=== PATIENT | female | born 1950 | race Caucasian/White ===

== ENCOUNTER 2017-09-18 16:03 | Emergency (ER) | payer MEDICARE ==
[~2017-09-18] VITALS: Ht 162.6 cm; Wt 77.8 kg
[~2017-09-18 16:03] MED LIST: ADVIL200 MG PO; ASPIRIN EC325 MG PO; CALCIUM CARBON600 MG PO; CALCIUM500 MG PO; CEFADROXIL500 MG PO; CLARITIN10 MG PO; CLINDAMYCIN HC300 MG PO; COLACE100 MG PO; CRANBERRY 6,001 EACH PO; CRANBERRY200 MG PO; CYCLOBENZAPRINE10 MG PO; EPIPEN 2-P0.3 MG/0.3 IM; FISH OIL500 MG PO; IRON325 M1 PO; LACRISERT5 MG OP; LACRISERT5 MG OPTH; MAG-TAB SR84 MG PO; MINOCIN50 MG PO; MINOCYCLINE HCL50 M1 PO; MULTI VITAMIN1 EACH PO; NORCO 10-325 T1 EACH PO; NORCO 7.5-3251 EACH PO; OMEPRAZOLE20 MG PO; RABANO YOD50 MG/15 M PO; REFRESH PLUS1 EACH OP; RESTASIS1 DROP OD; RESTASIS1 DROP OU; SALAGEN5 MG PO; ULTRAM50 MG PO; VITAMIN D-32000 UNIT PO; XARELTO10 MG PO; ZOFRAN4 MG SL
[2017-09-18] MEDS ORDERED: CYCLOBENZAPRINE10 MG PO (16:53)
== END 2017-09-18 17:02 | disposition home or self-care (01) ==
LOC: ED 16:03
DX: M62.830 Muscle spasm of back (principal); Z91.018 Allergy to other foods; Z88.0 Allergy status to penicillin; Z88.5 Allergy status to narcotic agent; Z79.899 Other long term (current) drug therapy; X50.9XXA Other and unspecified overexertion or strenuous movements or postures, initial encounter
CPT/HCPCS: 99283

== ENCOUNTER 2018-02-04 09:59 | Emergency (ER) | payer MEDICARE ==
[~2018-02-04] VITALS: Ht 162.6 cm; Wt 77.8 kg
[2018-02-04] MEDS ORDERED: RANITIDINE HCL150 M1 PO (10:39)
[2018-02-04] MEDS ORDERED: B COMPLEX1 EACH PO (10:41)
[2018-02-04] MEDS ORDERED: PROBIOTIC1 EAC1 PO (10:42)
[2018-02-04] MEDS ORDERED: FISH OIL 1,2001 EACH PO (10:43)
[2018-02-04] MEDS ORDERED: OXYCODONE HCL5 MG PO (11:38)
== END 2018-02-04 11:45 | disposition home or self-care (01) ==
LOC: ED 09:59
DX: S29.011A Strain of muscle and tendon of front wall of thorax, initial encounter (principal); Z88.0 Allergy status to penicillin; Z88.5 Allergy status to narcotic agent; Z88.8 Allergy status to other drugs, medicaments and biological substances; Z91.018 Allergy to other foods; Z79.899 Other long term (current) drug therapy; X58.XXXA Exposure to other specified factors, initial encounter
CPT/HCPCS: 71046; 99283

== ENCOUNTER 2018-06-11 18:44 | Emergency (ER) | payer MEDICARE ==
[~2018-06-11] VITALS: Ht 162.6 cm; Wt 74.9 kg
[~2018-06-11 18:44] MED LIST changes: +B COMPLEX1 EACH PO; +FISH OIL 1,2001 EACH PO; -LACRISERT5 MG OP; +LACRISERT5 MG OU; +OXYCODONE HCL5 MG PO; +PROBIOTIC1 EAC1 PO; +RANITIDINE HCL150 M1 PO
[2018-06-11] MEDS ORDERED: PERCOCET 5-3251 EACH PO (21:50)
[2018-06-13] MEDS ORDERED: FLUTICASONE PRO16 GM NAS (10:45)
[2018-06-13] MEDS ORDERED: RANITIDINE HCL150 MG PO (10:46)
[2018-06-13] MEDS ORDERED: NEURONTIN300 MG PO (10:54)
== END 2018-06-11 22:47 | disposition home or self-care (01) ==
LOC: ED 18:44
DX: S70.01XA Contusion of right hip, initial encounter (principal); W19.XXXA Unspecified fall, initial encounter; Y92.481 Parking lot as the place of occurrence of the external cause; Z88.0 Allergy status to penicillin; Z88.5 Allergy status to narcotic agent; Z91.018 Allergy to other foods; Z79.899 Other long term (current) drug therapy
CPT/HCPCS: 73502; 73700; 96374; 96375; 96376; 99284; J2270; J2405

== ENCOUNTER 2019-07-02 10:05 | Observation (INO) | payer MEDICARE ==
[~2019-07-02] VITALS: Ht 162.6 cm; Wt 78.5 kg
--- OUTSIDE RECORDS SUMMARY | ~2019-07-02 | XMS | Encounter Summary ---
Demographics + + + | Address | [address] | | | [place] [address] | + + + | Home Phone | | + + + | Preferred Language | Unknown | + + + | Marital Status | | + + + | Pentecostalism Affiliation | 1076 | + + + | Race | Unknown | + + + | Ethnic Group | Unknown | + + + Author + + + | Author | [facility] | | | and [place] | + + + | Organization | [facility] | | | and [place] | + + + | Address | Unknown | + + + | Phone | Unavailable | + + + Support + + + + + | Name | Relationship | Address | Phone | + + + + + | Devang Fernandez | [place] | [address] | | | | | [place], [place] | | | | | [address] | | + + + + + | Dalton Fernandez | ECON | Unknown | | + + + + + | Juana Fernandez | ECON | Unknown | | + + + + + Care Team Providers + +------+ + | Care Business Office Director Name | Role | Phone | + +------+ + | Dutch Rodriguez DO | PCP | | + +------+ + Encounter Details +--------+ + + + + | Date | Type | Department | Care Team | Description | +--------+ + + + + | 12/25/ | Orders Only | [facility] [place] | Ramin Bess | Closed left | | 2017 | | ORTHOPEDIC SURGERY | MD Swathi Gonzalez [facility] | subtrochanteric | | | | [address] [facility] | [place] | femur fracture, | | | | [place] | [address] | initial encounter | | | | [address] | | ([facility]) (Primary Dx) | | | | [phone] | | | +--------+ + + + + Social History + +-------+ +--------+------+ | Tobacco Use | Types | Packs/Day | Years | Date | | | | | Used | | + +-------+ +--------+------+ | Never Smoker | | | | | + +-------+ +--------+------+ + +---+---+---+ | Smokeless Tobacco: | | | | | Never Used | | | | + +---+---+---+ + + +---------+ + | Alcohol Use | Drinks/Week | oz/Week | Comments | + + +---------+ + | Yes | | | Occasionally - 1 | | | | | drink per month | + + +---------+ + + + + | Sex Assigned at | Date Recorded | | | | + + + | Not on file | | + + + + + + + | Job Start Date | Occupation | Industry | + + + + | Not on file | Not on file | Not on file | + + + + + + + + | Travel History | Travel Start | Travel End | + + + + + + | No recent travel history available. | + + documented as of this encounter Functional Status + + + + | Functional Status | Response | Date of Assessment | + + + + | Are you deaf or do you have serious | No | 11/01/2016 | | difficulty hearing? | | | + + + + | Are you blind or do you have serious | No | 11/01/2016 | | difficulty seeing, even when wearing | | | | glasses? | | | + + + + | Do you have serious difficulty walking or | No | 11/01/2016 | | climbing stairs? (5 years old or older) | | | + + + + | Do you have difficulty dressing or bathing? | No | 11/01/2016 | | (5 years old or older) | | | + + + + | Because of a physical, mental, or emotional | Yes | 11/01/2016 | | condition, do you have difficulty doing | | | | errands alone such as visiting a doctor's | | | | office or shopping? [15 years old or | | | | older)] | | | + + + + + + + + | Cognitive Status | Response | Date of Assessment | + + + + | Because of a physical, mental, or emotional | No | 11/01/2016 | | condition, do you have serious difficulty | | | | concentrating, remembering, or making | | | | decisions? (5 years old or older) | | | + + + + documented as of this encounter Plan of Treatment +--------+---------+ + + + | Date | Type | Specialty | Care Team | Description | +--------+---------+ + + + | 07/22/ | Office | Orthopedic Surgery | Ramin Bess | | | 2018 | Visit | | MD Swathi Gonzalez | | | | | | [place] | | | | | | [address] | | | | | | | | +--------+---------+ + + + documented as of this encounter Results XR Knee Left 1 - 2 Vw (12/26/2016 11:21 AM PDT) + + | Specimen | + + | | + + + + + | Narrative | Performed At | + + + | XR KNEE LEFT 1 - 2 VW 12/26/2016 11:21 AM HISTORY: F/U LEFT | [facility] | | SUBTROCHANTERIC FEMUR FRACTURE. COMPARISON: 10/22/2016 | [facility] | | FINDINGS: Interval progressive, but incomplete bridging bone and | [facility] | | callus formation involving the comminuted distal left femur fracture | - IMAGING | | status post retrograde femoral intramedullary diogo with distal and | | | proximal interlocking screws. Fracture fragments are in anatomic | | | alignment. No definite evidence of joint effusion. Left knee | | | arthroplasty components show no evidence of acute abnormality. | | | IMPRESSION - Intact retrograde left femoral intramedullary diogo with | | | proximal and distal interlocking screws. Interval progressive, | | | but incomplete healing of the distal left femoral comminuted | | | metadiaphyseal fracture, in near anatomic alignment. Dictated and | | | Signed by: Walt De Jesus MD Electronically signed: 12/26/2016 | | | 11:43 AM | | + + + + + | Procedure Note | + + | Vinod Rosen Results In - 12/26/2016 11:46 AM PDT XR KNEE LEFT 1 - 2 VW 12/26/2016 11:21 | | AMHISTORY: F/U LEFT SUBTROCHANTERIC FEMUR FRACTURE.COMPARISON: | | 10/22/2016FINDINGS:Interval progressive, but incomplete bridging bone and callus | | formationinvolving the comminuted distal left femur fracture status post | | retrogradefemoral intramedullary diogo with distal and proximal interlocking | | screws.Fracture fragments are in anatomic alignment. No definite evidence of | | jointeffusion. Left knee arthroplasty components show no evidence of | | acuteabnormality.IMPRESSION -Intact retrograde left femoral intramedullary diogo with | | proximal and distalinterlocking screws.Interval progressive, but incomplete healing of | | the distal left femoralcomminuted metadiaphyseal fracture, in near anatomic | | alignment.Dictated and Signed by: Walt De Jesus MD Electronically signed: 12/26/2016 | | 11:43 AM | |abnormality. | | | |IMPRESSION - | |Intact retrograde left femoral intramedullary diogo with proximal and distal | |interlocking screws. | | | |Interval progressive, but incomplete healing of the distal left femoral | |comminuted metadiaphyseal fracture, in near anatomic alignment. | | | |Dictated and Signed by: Walt De Jesus MD | | Electronically signed: 12/26/2016 11:43 AM | + + + + + + + | Performing | Address | City/State/Zipcode | Phone Number | | Organization | | | | + + + + + | [facility] | [address] | [place] | [phone] | | [facility] | | [address] | | | - IMAGING | | | | + + + + + documented in this encounter Visit Diagnoses + + | Diagnosis | + + | Closed left subtrochanteric femur fracture, initial encounter (HCC) - Primary | + + documented in this encounter"
--- OUTSIDE RECORDS SUMMARY | ~2019-07-02 | XMS | Encounter Summary ---
Demographics + + + | Address | [address] | | | [place] [address] | + + + | Home Phone | | + + + | Preferred Language | Unknown | + + + | Marital Status | | + + + | Baptist Affiliation | 1076 | + + + | Race | Unknown | + + + | Ethnic Group | Unknown | + + + Author + + + | Author | [facility] | | | and [place] | + + + | Organization | [facility] | | | and [place] | + + + | Address | Unknown | + + + | Phone | Unavailable | + + + Support + + + + + | Name | Relationship | Address | Phone | + + + + + | Devang Koroma | [place] | [address] | | | | | [place], [place] | | | | | [address] | | + + + + + | Dalton Koroma | ECON | Unknown | | + + + + + | Juana Koroma | ECON | Unknown | | + + + + + Care Team Providers + +------+ + | Care [address] Vendor Name | Role | Phone | + +------+ + | Dutch Valencia DO | PCP | | + +------+ + Reason for Visit + + + | Reason | Comments | + + + | Post Op | right tka dos 05/26/15 | + + + | Knee Pain | right | + + + Encounter Details +--------+---------+ + + + | Date | Type | Department | Care Team | Description | +--------+---------+ + + + | 06/08/ | Office | [facility] | Ramin Huggins | S/P orthopedic | | 2015 | Visit | ORTHOPEDIC SURGERY | MD Lisa [address] [facility] | surgery, follow-up | | | | [address] [facility] | [place] | exam (Primary Dx) | | | | [place] | [address] | | | | | [address] | | | | | | [phone] | | | +--------+---------+ + + + Social History + +-------+ [...] + + documented as of this encounter Last Filed Vital Signs + + + + + | Vital Sign | Reading | Time Taken | Comments | + + + + + | Blood Pressure | - | - | | + + + + + | Pulse | - | - | | + + + + + | Temperature | 37 C (98.6 F) | 06/08/2015 10:43 AM | | | | | PST | | + + + + + | Respiratory Rate | - | - | | + + + + + | Oxygen Saturation | - | - | | + + + + + | Inhaled Oxygen | - | - | | | Concentration | | | | + + + + + | Weight | 75.8 kg (167 lb) | 06/08/2015 10:43 AM | | | | | PST | | + + + + + | Height | 164.5 cm (5' 4.75") | 06/08/2015 10:43 AM | | | | | PST | | + + + + + | Body Mass Index | 28.01 | 06/08/2015 10:43 AM | | | | | PST | | + + + + + documented in this encounter Functional Status + + + + | Functional Status | Response | Date of Assessment | + + + + | Are you deaf or do you have serious | No | 05/29/2015 | | difficulty hearing? | | | + + + + | Are you blind or do you have serious | No | 05/29/2015 | | difficulty seeing, even when wearing | | | | glasses? | | | + + + + | Do you have serious difficulty walking or | Yes | 05/29/2015 | | climbing stairs? (5 years old or older) | | | + + + + | Do you have difficulty dressing or bathing? | Yes | 05/29/2015 | | (5 years old or older) | | | + + + + | Because of a physical, mental, or emotional | Yes | 05/29/2015 | | condition, do you have difficulty [...] physical, mental, or emotional | No | 05/29/2015 | | condition, do you have serious difficulty | | | | concentrating, remembering, or making | | | | decisions? (5 years old or older) | | | + + + + documented as of this encounter Progress Notes Ramin Huggins MD - 06/08/2015 12:22 PM PSTSee soap note [id number].Electronically sign ed by Ramin Huggins MD at 06/08/2015 12:22 PM [facility] Center[facility] fierro MD - 12:22 PM PST [facility]THOP[facility]IC SURGERY [address] [place] [id number] OFFICE NOTE RAMIN HUGGINS MD Patient: MYRIAM KOROMA Admitting: MR #: [id number] LOC: PT TYPE: Adm Date: 06/08/2015 : 1950 Myriam returns today for followup of her right total knee joint arthroplasty performed on , thirteen days ago. She was seen back for her first postoperative visit on 06/04 and at that time noted to have rather significant swelling in her entire right leg e xtending from the distal thigh down to the foot. She was found to have a negative Homans s ign and therefore was sent to occupational therapy for Kinesio taping. Today, Myriam notes that her swelling has improved significantly and her pain is also minimized. She has been using her CPM faithfully. EXAMINATION: The right lower extremity was examined. There has been significant improvem ent in both ecchymosis as well as overall swelling of the entire right lower extremity. Th e patient's motion is approximately 4-90 degrees. The knee is stable. Neurovascular funct ion is intact to the right foot. ADVICE: Today maco were removed and Steri-Strips and benzoin were applied. We have en couraged Myriam to be faithful with physical therapy, to work on both extension and flexion. She will continue to use the CPM machine. We have given her a single prescription for Du ricef to be used as needed for prophylaxis, as she does need to have a crown recemented th at fell off earlier today in her mouth. We will plan to see Myriam back in approximately 3 weeks for an x-ray check of her right knee at that time. RAMIN HUGGINS MD Dictated by RAMIN HUGGINS MD 06/08/2015 12:22:04 Transcribed on 06/09/2015 03:46:[address] shahid# [id number] Confirmation #: [id number] cc: DUTCH VALENCIA DOElectronjose e signed by Ramin Huggins MD at 06/09/2015 8:39 AM PSTdocumented in this encounter Plan of Treatment +--------+---------+ + + + | Date | Type | Specialty | Care Team | Description | +--------+---------+ + + + | 07/22/ | Office | Orthopedic Surgery | Ramin Huggins | | | 2019 | Visit | | MD Swathi Gonzalez | | | | | | [place] | | | | | | [address] | | | | | | | | +--------+---------+ + + + documented as of this encounter Visit Diagnoses + + | Diagnosis | + + | S/P orthopedic surgery, follow-up exam - Primary Follow-up examination, following | | other surgery | + + documented in this encounter
--- OUTSIDE RECORDS SUMMARY | ~2019-07-02 | XMS | Encounter Summary ---
Demographics + + + | Address | [address] | | | [place] [address] | + + + | Home Phone | | + + + | Preferred Language | Unknown | + + + | Marital Status | | + + + | Denominational Affiliation | 1076 | + + + | Race | Unknown | + + + | Ethnic Group | Unknown | + + + Author + + + | Author | and [facility] | | | and [place]o | + + + | Organization | and [facility] | | | and [...] [place], [place] | | | | | [address] | | + + + + + | Dalton Koroma | ECON | Unknown | | + + + + + | Juana Koroma | ECON | Unknown | | + + + + + Care Team Providers + +------+ + | Care Target Man Name | Role | Phone | + +------+ + | Dutch Valencia DO | PCP | | + +------+ + Reason for Visit +---------+ + | Reason | Comments | +---------+ + | Post Op | ORIF retrograde IM femoral dos 10/23/16 | +---------+ + Encounter Details +--------+---------+ + + + | Date | Type | Department | Care Team | Description | +--------+---------+ + + + | 12/26/ | Office | [facility] [place] | Ramin Huggins | S/P orthopedic | | 2017 | Visit | ORTHOPEDIC SURGERY | MD Swathi Gonzalez | surgery, follow-up | | | | [address] [facility] | [place] | exam (Primary Dx) | | | | [place] | [address] | | | | | [address] | | | | | | [phone] | | | +--------+---------+ + + + [...] + + + + | Temperature | 36.9 C (98.4 F) | 12/26/2016 11:25 AM | | | | | PDT | | + + + + + | Respiratory Rate | - | - | | + + + + + | Oxygen Saturation | - | - | | + + + + + | Inhaled Oxygen | - | - | | | Concentration | | | | + + + + + | Weight | 77.1 kg (170 lb) | 12/26/2016 11:25 AM | | | | | PDT | | + + + + + | Height | 164.5 cm (5' 4.75") | 12/26/2016 11:25 AM | | | | | PDT | | + + + + + | Body Mass Index | 28.51 | 12/26/2016 11:25 AM | | | | | PDT | | + + + + + [...] encounter Progress Notes Ramin Huggins MD - 12/26/2016 6:50 PM PDT [facility] ORTHOPEDIC SURGER Y [address] [facility] [address] OFFICE NOTE RAMIN HUGGINS MD Patient: MYRIAM KOROMA Admitting: MR #: [id number] LOC: PT TYPE: Adm Date: 12/26/2016 : 1950 Myriam returns today for followup of her left supracondylar periprosthetic femur fracture t reated on 10/23/2016 with a retrograde interlocked intramedullary femoral nail. Today, she notes that she is having no pain. She has been attending physical therapy faithfully and making incremental progress. EXAMINATION: The patient's left knee is examined. The incision is nicely healed. There is no evidence of swelling or infection. Today her motion is approximately 0-60 degrees. X-RAYS: X-rays were taken and reviewed, which show advancing bony healing with visible c allus formation present at the fracture site. ADVICE: We will now allow Myriam to proceed with full weightbearing to tolerance. She may remove her brace at night and may also remove it for working with physical therapy. How er, she should continue to wear the brace while walking in the daytime simply as protection . We will plan to see her back for an x-ray check as well as clinical followup of her lef t knee in 3-4 weeks. RAMIN HUGGINS MD Dictated by RAMIN HUGGINS MD 12/26/2016 18:50:02 Transcribed on 12/27/2016 16:34:04 by nimesh job# [id number] Confirmation #: [id number] cc: DUTCH VALENCIA DO Ramin Ureña MD - 12/26/2016 11:30 AM PDTSee soap note [id number].Electronically si gned by Ramin Huggins MD at 12/26/2016 6:50 PM PDTdocumented in this encounter Plan of Treatment +--------+---------+ + + + | Date | Type | Specialty | Care Team | Description | +--------+---------+ + + + | 07/22/ | Office | Orthopedic Surgery | Ramin Huggins | | | 2019 | Visit | | MD Lisa [address] [place] [address] | | | | | | [place] | | | | | | [address] | | | | | | | | +--------+---------+ + + + documented as of this encounter Visit Diagnoses + + | Diagnosis | + + | S/P orthopedic surgery, follow-up exam - Primary Follow-up examination, following | | other surgery | + + documented in this encounter
--- OUTSIDE RECORDS SUMMARY | ~2019-07-02 | XMS | Encounter Summary ---
Demographics + + + | Address | [address] | | | [place] [address] | + + + | Home Phone | | + + + | Preferred Language | Unknown | + + + | Marital Status | | + + + | Hindu Affiliation | 1076 | + + + | Race | Unknown | + + + | Ethnic Group | Unknown | + + + Author + + + | Author | [facility] | | | and [place] | + + + | Organization | [facility] | | | and [place] | + + + | Address | Unknown | + + + | Phone | Unavailable | + + + Support + + + + + | Name | Relationship | Address | Phone | + + + + + | Devang Fernandez | [place] | [address] | | | | | [place] | | | | | [address] | | + + + + + | Dalton Fernandez | ECON | Unknown | | + + + + + | Juana Fernandez | ECON | Unknown | | + + + + + Care Team Providers + +------+ + | Care Natural Resources Faculty Member Name | Role | Phone | + +------+ + | Miguel Bocanegra MD | PCP | | + +------+ + Encounter Details +--------+ + + + + | Date | Type | Department | Care Team | Description | +--------+ + + + + | 12/26/ | Orders Only | [facility] | Douglas Nuñez MD | Back pain (Primary | | 2013 | | NEUROSURGERY [address] | [address] | Dx) | | | | [address] | [place] [address] | | | | | [place] | [phone] | | | | | [address] | | | | | | [phone] | | | +--------+ + + + + Social History + +-------+ +--------+------+ | Tobacco Use | Types | Packs/Day | Years | Date | | | | | Used | | + +-------+ +--------+------+ | Never Assessed | | | | | + +-------+ +--------+------+ + + + | Sex Assigned at [...] Surgery | Ramin Bess | | | 2019 | Visit | | MD Lisa [address] [place] [address] | | | | | | [place] | | | | | | [id number] | | | | | | | | +--------+---------+ + + + documented as of this encounter Results XR Spine Survey AP and Lateral (03/13/2014 9:59 AM PDT) + + | Specimen | + + | | + + + + + | Narrative | Performed At | + + + | [facility] 03/13/2014 9:59 AM CLINICAL HISTORY: | MISCELANIOUS | | back pain COMPARISON: LUMBAR MRI DECEMBER 03, 2013 FROM [facility] | LAB | | HOSPITAL FINDINGS: AP, lateral bending and flexion/extension views | | | of the thoracolumbar spine are provided. Five non rib-bearing, | | | lumbar-type vertebrae are suggested. There is S shaped thoracolumbar | | | curvature. Approximately 7 degrees of dextroscoliosis centered at | | | T9 increases to 20 degrees with left lateral bending and reverses to | | | 9 degrees of levoscoliosis with right lateral bending. Approximately | | | 10 degrees of levoscoliosis centered at L4-5 increases to 26 degrees | | | with right lateral bending and decreases to 7 degrees with left | | | lateral bending. Severe compression deformity of the T12 vertebral | | | body and more mild to moderate compression deformity of the T11 | | | vertebral body persist unchanged. Mild compression deformity of the | | | superior T9 vertebral endplate is again visible as well. Vertebral | | | height is otherwise maintained. Mild to moderate disc space | | | narrowing and facet hypertrophy are present at L3-4 and L4-5. Mild | | | anterolisthesis at these levels is more pronounced with flexion and | | | partially resolves with extension. Mild retrolisthesis at T12-L1 | | | persists with extension but resolves with flexion. The sacroiliac | | | joints and imaged sacrum, bony pelvis and ribs are unremarkable. A | | | partially gas-filled hiatus hernia is ingested. Imaged intrathoracic | | | structures are otherwise grossly unremarkable. There is left | | | cervical carotid calcification and scattered abdominal aortic | | | calcification. IMPRESSION - 1. S SHAPED THORACOLUMBAR | | | SCOLIOSIS DESCRIBED. 2. CHRONIC T9, T11 AND T12 COMPRESSION | | | FRACTURES WITH MULTILEVEL LUMBAR DEGENERATIVE DISC DISEASE, | | | SPONDYLOSIS AND SPONDYLOLISTHESIS DESCRIBED. 3. HIATUS | | | HERNIA. 4. VASCULAR CALCIFICATION. Dictated and Signed by: | | | Toy Pak MD Electronically signed: 03/13/2014 1:52 PM | | + + + + + | Procedure Note | + + | Silas, Rad Results In - 03/13/2014 1:55 PM PDT [facility] SCOLIOSIS SERIES 03/13/2014 | | 9:59 AMCLINICAL HISTORY: back painCOMPARISON: LUMBAR MRI DECEMBER 03, 2013 FROM [facility] | | HOSPITALFINDINGS: AP, lateral bending and flexion/extension views of the | | thoracolumbarspine are provided. Five non rib-bearing, lumbar-type vertebrae are | | suggested. There is S shaped thoracolumbar curvature. Approximately 7 degrees | | ofdextroscoliosis centered at T9 increases to 20 degrees with left lateral bendingand | | reverses to 9 degrees of levoscoliosis with right lateral bending. Approximately 10 | | degrees of levoscoliosis centered at L4-5 increases to 26degrees with right lateral | | bending and decreases to 7 degrees with left lateralbending. Severe compression | | deformity of the T12 vertebral body and more mildto moderate compression deformity of | | the T11 vertebral body persist unchanged. Mild compression deformity of the superior T9 | | vertebral endplate is againvisible as well. Vertebral height is otherwise maintained. | | Mild to moderatedisc space narrowing and facet hypertrophy are present at L3-4 and L4-5. | | Mildanterolisthesis at these levels is more pronounced with flexion and | | partiallyresolves with extension. Mild retrolisthesis at T12-L1 persists with | | extensionbut resolves with flexion. The sacroiliac joints and imaged sacrum, bony | | pelvisand ribs are unremarkable. A partially gas-filled hiatus hernia is ingested. | | Imaged intrathoracic structures are otherwise grossly unremarkable. There isleft | | cervical carotid calcification and scattered abdominal aorticcalcification.IMPRESSION | | -1. S SHAPED THORACOLUMBAR SCOLIOSIS DESCRIBED.2. CHRONIC T9, T11 AND T12 | | COMPRESSION FRACTURES WITH MULTILEVEL LUMBARDEGENERATIVE DISC DISEASE, SPONDYLOSIS AND | | SPONDYLOLISTHESIS DESCRIBED.3. HIATUS HERNIA.4. VASCULAR CALCIFICATION.Dictated and | | Signed by: Toy Pak MD Electronically signed: 03/13/2014 1:52 PM | |left cervical carotid calcification and scattered abdominal aortic | |calcification. | | | |IMPRESSION - | |1. S SHAPED THORACOLUMBAR SCOLIOSIS DESCRIBED. | | | |2. CHRONIC T9, T11 AND T12 COMPRESSION FRACTURES WITH MULTILEVEL LUMBAR | |DEGENERATIVE DISC DISEASE, SPONDYLOSIS AND SPONDYLOLISTHESIS DESCRIBED. | | | |3. HIATUS HERNIA. | | | |4. VASCULAR CALCIFICATION. | | | |Dictated and Signed by: Toy Pak MD | | Electronically signed: 03/13/2014 1:52 PM | + + + +---------+ + + | Performing | Address | City/State/Zipcode | Phone Number | | Organization | | | | + +---------+ + + | M[facility]CELL[facility]OUS LAB | | | [phone] | + +---------+ + + | MISCELANIOUS LAB | | | [phone] | + +---------+ + + documented in this encounter Visit Diagnoses + + | Diagnosis | + + | Back pain - Primary Backache, unspecified | + + documented in this encounter"
--- OUTSIDE RECORDS SUMMARY | ~2019-07-02 | XMS | Encounter Summary ---
Demographics + + + | Address | [address] | | | [place] [address] | + + + | Home Phone | | + + + | Preferred Language | Unknown | + + + | Marital Status | | + + + | Confucianism Affiliation | 1076 | + + + | Race | Unknown | + + + | Ethnic Group | Unknown | + + + Author + + + | Author | [facility] | | | and [place] | + + + | Organization | [facility] | | | and [place] | [...] [place], [place] | | | | | [address] | | + + + + + | Dalton Koroma | ECON | Unknown | | + + + + + | Juana Koroma | ECON | Unknown | | + + + + + Care Team Providers + +------+ + | Care Metal Tube Cutter Name | Role | Phone | + +------+ + | Dutch Valencia DO | PCP | | + +------+ + Reason for Visit +---------+ + | Reason | Comments | +---------+ + | Post Op | ORIF LEFT FEMUR DOS 10/23/16 | +---------+ + Encounter Details +--------+---------+ + + + | Date | Type | Department | Care Team | Description | +--------+---------+ + + + | 11/28/ | Office | [facility] | Ramin Huggins | S/P orthopedic | | 2016 | Visit | ORTHOPEDIC SURGERY | MD Lisa [address] [place] [address] | surgery, follow-up | | | | [address] [facility] | [place] | exam (Primary Dx) | | | | [place] | [address] | | | | | [address] | | | | | | [phone] | | | +--------+---------+ + + + [...] + + + + | Temperature | 36.4 C (97.5 F) | 11/28/2016 4:36 PM | | | | | PDT | [...] Weight | 77.1 kg (170 lb) | 11/28/2016 4:36 PM | | | | | PDT | | + + + + + | Height | 164.5 cm (5' 4.75") | 11/28/2016 4:36 PM | | | | | PDT | | + + + + + | Body Mass Index | 28.51 | 11/28/2016 4:36 PM | | | | | PDT | [...] encounter Progress Notes Ramin Huggins MD - 11/28/2016 6:33 PM PDTSee soap note [id number].Electronically dakota d by Ramin Huggins MD at 11/28/2016 6:33 PM PDTRamin Huggins MD - 11/28/2016 6:33 PM PDT [facility] ORTH[facility]IC SURGERY [address] [place] [id number] OFFICE NOTE RAMIN HUGGINS MD Patient: MYRIAM KOROMA Admitting: MR #: [id number] LOC: PT TYPE: Adm Date: 11/28/2016 : 1950 Myriam returns today for followup of her left supracondylar periprosthetic femur fracture t reated on 10/23/2016 with a retrograde interlocked intramedullary femoral nail. The patien t notes that she is having no pain. Her knee feels comfortable. She has been maintaining a nonweightbearing status on her left foot as advice. She is wearing a knee brace that is allowing her 0-50 degrees of motion. EXAMINATION: The knee is examined. The incision is nicely healed. The patient demonstra cheli motion from 0-50 degrees. Neurovascular function is intact to her left foot. X-RAYS: X-rays were taken and reviewed, which show early bony healing with some visible c allus formation at the fracture site. ADVICE: We will now increase the range of motion to 0-70 degrees and will allow her toe t ouch weightbearing status on the left foot. She will then be allowed to increase her range of motion to 90 degrees in a week and will be maintained on toe touch weightbearing status . We will see her back in 3 weeks for an x-ray check of her left knee and we will plan to advance her weightbearing at that time if appropriate. RAMIN HUGGINS MD Dictated by RAMIN HUGGINS MD 11/28/2016 18:33:22 Transcribed on 11/29/2016 06:17:44 by sean job# [id number] Confirmation #: [id number] cc: DUTCH VALENCIA DO documented in this encounter Plan of Treatment +--------+---------+ + + + | Date | Type | Specialty | Care Team | Description | +--------+---------+ + + + | 07/22/ | Office | Orthopedic Surgery | Ramin Huggins | | | 2019 | Visit | | MD Lisa [address] [place] [address] | | | | | | [place] | | | | | | [phone] | | | | | | | | +--------+---------+ + + + documented as of this encounter Visit Diagnoses + + | Diagnosis | + + | S/P orthopedic surgery, follow-up exam - Primary Follow-up examination, following | | other surgery | + + documented in this encounter
--- OUTSIDE RECORDS SUMMARY | ~2019-07-02 | XMS | Encounter Summary ---
Demographics + + + | Address | [address] | | | [place] [address] | + + + | Home Phone | | + + + | Preferred Language | Unknown | + + + | Marital Status | | + + + | Congregational Affiliation | 1076 | + + + | Race | Unknown | + + + | Ethnic Group | Unknown | + + + Author + + + | Author | [facility] | | | and Primo | + + + | Organization | [facility] | | | and [place] [...] [place], [place] | | | | | [address] | | + + + + + | Dalton Fernandez | ECON | Unknown | | + + + + + | Juana Fernandez | ECON | Unknown | | + + + + + Care Team Providers + +------+ + | Care Industrial Safety Engineer Name | Role | Phone | + +------+ + | Dutch Rodriguez DO | PCP | | + +------+ + Reason for Visit Auth/Cert +--------+--------+ + + + + | Status | Reason | Specialty | Diagnoses / | Referred By | Referred To | | | | | Procedures | Contact | Contact | +--------+--------+ + + + + | Closed | | | Diagnoses | | | | | | | 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 | | | | | | | 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 | | | | | | | Procedures | | | | | | | IA ARTHDSIS | | | | | | | POST/POSTERO | | | | | | | LATRL/POSTIN | | | | | | | TERBODY | | | | | | | LUMBAR | | | | | | | LAMINECTOMY | | | | | | | PLIF/TLIF | | | | | | | INSTRUMENTAT | | | | | | | ION | | | +--------+--------+ + + + + Encounter Details +--------+ + + + + | Date | Type | Department | Care Team | Description | +--------+ + + + + | 06/17/ Anesthesia | [facility] | Pasha Oh, | | | 2013 | Event | [facility] | MD [address] | | | | | [address] | [place], [place] | | | | | [place], [place] | [address] | | | | | [address] | | | | | | [phone] | | | +--------+ + + + + Anesthesia Record + + + + + | Procedure Name | Responsible | Anesthesia Start | Anesthesia Stop Time | | | Anesthesiologist | Time | | + + + + + | L4-5, L5-S1 TLIF, | | 06/17/14 1410 | 11/12/14 1740 | | LEFT SIDED APPROACH | | | | | (Left Spine Lumbar) | | | | + + + + + +----+---+ + + | Da | T | Event | Comment | | te | i | | | | | m | | | | | e | | | +----+---+ + + | 11 | 1 | | | | /1 | 3 | | | | 2/ | 4 | | | | 20 | 7 | | | | 14 | | | | +----+---+ + + | | 1 | An Checkout | Pre-use anesthesia machine/equipment checkout. | | | 3 | | | | | 5 | | | | | 1 | | | +----+---+ + + | | 1 | Antibiotic | | | | 4 | Given | | | | 0 | | | | | 0 | | | +----+---+ + + | | 1 | An Start | Reassessment prior to anesthesia induction/procedure. | | | 4 | | | | | 1 | | | | | 0 | | | +----+---+ + + | | 1 | Preoxygenat | | | | 4 | ed | | | | 1 | | | | | 5 | | | +----+---+ + + | | 1 | An | | | | 4 | Induction | | | | 1 | | | | | 7 | | | +----+---+ + + | | 1 | An | Easy mask. Anticipated difficult intubation secondary to quite | | | 4 | Intubation | limited mouth opening so used a Stone Mac 3 blade without | | | 1 | | difficulty. Produced Modified Grade 1 view of the VCs with BURP | | | 9 | | technique utilized. ETT with stylet placed quite easily. | | | | | Secured. | +----+---+ + + | | 1 | Nathrop | | | | 4 | 43-degrees | | | | 3 | | | | | 6 | | | +----+---+ + + | | 1 | Nathrop off | | | | 7 | | | | | 1 | | | | | 7 | | | +----+---+ + + | | 1 | Breathing | | | | 7 | Spontaneous | | | | 2 | ly | | | | 4 | | | +----+---+ + + | | 1 | Oropharynx | | | | 7 | Suctioned | | | | 2 | | | | | 8 | | | +----+---+ + + | | 1 | Moving | | | | 7 | Purposefull | | | | 2 | y | | | | 8 | | | +----+---+ + + | | 1 | Extubated | | | | 7 | Awake | | | | 2 | | | | | 8 | | | +----+---+ + + | | 1 | an stop | | | | 7 | data | | | | 3 | | | | | 2 | | | +----+---+ + + | | 1 | An Stop | Patient handed off to recovery nurse. | | | 4 | | | | | 0 | | | +----+---+ + + +------+ | Meds | +------+ + + + | Name | Total | + + + | midazolam | 2 mg | + + + | fentaNYL | 250 mcg | + + + | lidocaine 2% (PF) | 50 mg | + + + | propofol | 130 mg | + + + | succinylcholine | 60 mg | + + + | ketamine | 150 mg | + + + | dexamethasone | 10 mg | + + + | ondansetron | 4 mg | + + + | HYDROmorphone | 2 mg | + + + | phenylephrine (GENESIS-SYNEPHRINE) IV | 500 mcg | | syringe 0.1 mg/mL | | + + + | vasopressin | 32 Units | + + + | vancomycin 1 g in sodium chloride | 1 g | | 0.9% 250 mL IVPB | | + + + | ciprofloxacin in dextrose (CIPRO) | 400 mg | | IVPB 400 mg | | + + + | magnesium sulfate | 3.02 g | + + + | lactated ringers (LR) infusion | 2,000 mL | + + + + + | Name | + + | N2O Flow Rate (L/Min) | + + | O2 Flow Rate (L/Min) | + + | Insp O2 | + + | Exp SEV | + + | Exp JAM | + + | Air Flow Rate (L/Min) | + + + + | No blood administrations on file. | + + +--------+ + + + | Type | Details | Placement | Removal | +--------+ + + + | [READ | 06/17/14; 1340; 06/19/14; 1030 | 06/17/14 1340 by | 06/19/14 1030 by | | ONLY] | | Janey Figueredo | Marian Greenfield RN | | | | | | | Periph | | | | | eral | | | | | IV - | | | | | Single | | | | | Lumen | | | | | | | | | +--------+ + + + | Airway | Placement Date: 06/17/14; | 06/17/141418 by | 06/17/14 1728 by | | | Placement Time: 141; Mask | Pasha Oh MD | Pasha Oh MD | | | Ventilation: EZ; With: BURP; | | | | | Successful Technique: video scope | | | | | ([place] 3); Laryngoscope Blade | | | | | Size: 3; Attempts: 1; Airway | | | | | Type: endotracheal, cuffed; | | | | | Position: Right; Airway Tube | | | | | Secured At: 0.23 m (9.06"); Tube | | | | | Reference Point: lip, secure and | | | | | patent; Trauma: none; Placement | | | | | Check: verified by capnography; | | | | | Placed By: Anesthesiologist; | | | | | Removal Date: 06/17/14; Removal | | | | | Time: 1728 | | | +--------+ + + + | Read | 06/17/14; 1542; back; healing | 06/17/14 1542 by | 06/19/14 1306 by | | only - | within expectations; 06/19/14; | Vy Myles RN | Marian Greenfield RN | | | 1306 | | | | Incisi | | | | | on | | | | +--------+ + + + | Drain/ | 06/17/14; 1651; #1; Left:; lower; | 06/17/14 1651 by | 06/19/14 1030 by | | Device | lumbar spine; 10mm ROUND; short | Vy Myles RN | Marian Greenfield RN | | Site | term use; 11/14/14; 1030 | | | +--------+ + + + documented in this encounter Social History + +-------+ +--------+------+ | Tobacco [...] documented as of this encounter Visit Diagnoses Not on filedocumented in this encounter Administered Medications + +--------+ +--------+------+------+ | Medication Order | MAR | Action | Dose | Rate | Site | | | Action | Date | | | | + +--------+ +--------+------+------+ | ciprofloxacin in dextrose | Given | 06/17/20 | 400 mg | | | | (CIPRO) IVPB 400 mg 400 mg, | | 14 2:30 | | | | | Intravenous, Administer over 1 | | PM PST | | | | | Hours, EVERY 12 HOURS (2 times | | | | | | | per day), First dose on Sun | | | | | | | 06/17/14 at 1245, Pre-op | | | | | | + +--------+ +--------+------+------+ +---+---+ | | | +---+---+ + +-------+ +-------+---+---+ | dexamethasone (DECADRON) 10 | Given | 06/17/20 | 10 mg | | | | mg/mL injection Intravenous, | | 14 2:46 | | | | | PRN, Starting Sun06/17/14 at | | PM PST | | | | | 1446, Anesthesia Intra-op | | | | | | + +-------+ +-------+---+---+ +---+---+ | | | +---+---+ + +-------+ +--------+---+---+ | fentaNYL injection PRN, Pain, | Given | 06/17/20 | 50 mcg | | | | Starting 06/17/14 at 1417, | | 14 3:52 | | | | | Anesthesia Intra-op | | PM PST | | | | + +-------+ +--------+---+---+ +-------+ +--------+---+---+ | Given | 06/17/20 | 25 mcg | | | | | 14 3:42 | | | | | | PM PST | | | | +-------+ +--------+---+---+ | Given | 06/17/20 | 25 mcg | | | | | 14 3:05 | | | | | | PM PST | | | | +-------+ +--------+---+---+ +---+---+ | | | +---+---+ + +-------+ +--------+---+---+ | HYDROmorphone (PF) (DILAUDID) 2 | Given | 06/17/20 | 0.4 mg | | | | mg/mL injection PRN, Pain, | | 14 5:36 | | | | | Starting Sun06/17/14 at 1613, | | PM PST | | | | | Anesthesia Intra-op | | | | | | + +-------+ +--------+---+---+ +-------+ +--------+---+---+ | Given | 06/17/20 | 0.4 mg | | | | | 14 4:57 | | | | | | PM PST | | | | +-------+ +--------+---+---+ | Given | 06/17/20 | 0.4 mg | | | | | 14 4:39 | | | | | | PM PST | | | | +-------+ +--------+---+---+ +---+---+ | | | +---+---+ + +-------+ +-------+---+---+ | ketamine 50 mg/mL injection | Given | 06/17/20 | 25 mg | | | | PRN, Starting Sun06/17/14 at | | 14 3:52 | | | | | 1417, Anesthesia Intra-op | | PM PST | | | | + +-------+ +-------+---+---+ +-------+ +-------+---+---+ | Given | 06/17/20 | 25 mg | | | | | 14 3:42 | | | | | | PM PST | | | | +-------+ +-------+---+---+ | Given | 06/17/20 | 25 mg | | | | | 14 3:04 | | | | | | PM PST | | | | +-------+ +-------+---+---+ +---+---+ | | | +---+---+ + +---------+ +----+---+---+ | lactated ringers (LR) infusion | New Bag | 06/17/20 | mL | | | | at 100 mL/hr, Intravenous, | | 14 5:35 | | | | | CONTINUOUS, Starting 06/17/14 | | PM PST | | | | | at 1245, START WITH LARGE BORE | | | | | | | (18-20 GAUGE), Pre-op | | | | | | + +---------+ +----+---+---+ +---------+ +----+-------+---+ | New Bag | 06/17/20 | mL | | | | | 14 3:15 | | | | | | PM PST | | | | +---------+ +----+-------+---+ | New Bag | 06/17/20 | | 100 | | | | 14 1:42 | | mL/hr | | | | PM PST | | | | +---------+ +----+-------+---+ +---+---+ | | | +---+---+ + +-------+ +-------+---+---+ | lidocaine (PF) 2% injection | Given | 06/17/20 | 50 mg | | | | PRN, Starting 06/17/14 at | | 14 2:17 | | | | | 1417, Anesthesia Intra-op | | PM PST | | | | + +-------+ +-------+---+---+ +---+---+ | | | +---+---+ + +---------+ +--------+---------+---+ | magnesium sulfate 500 mg/mL | New Bag | 06/17/20 | 1 g/hr | 2 mL/hr | | | injection Intravenous, | | 14 2:39 | | | | | CONTINUOUS PRN, Starting Wed | | PM PST | | | | | 06/17/14 at 1439, Anesthesia | | | | | | | Intra-op | | | | | | + +---------+ +--------+---------+---+ +---+---+ | | | +---+---+ + +-------+ +------+---+---+ | midazolam (VERSED) 1 mg/mL | Given | 06/17/20 | 2 mg | | | | injection Intravenous, PRN, | | 14 2:10 | | | | | Anxiety, Starting 06/17/14 at | | PM PST | | | | | 1410, Anesthesia Intra-op | | | | | | + +-------+ +------+---+---+ +---+---+ | | | +---+---+ + +-------+ +------+---+---+ | ondansetron (ZOFRAN) injection | Given | 06/17/20 | 4 mg | | | | PRN, Nausea, Vomiting, Starting | | 14 2:46 | | | | | 06/17/14 at 1446, Anesthesia | | PM PST | | | | | Intra-op | | | | | | + +-------+ +------+---+---+ +---+---+ | | | +---+---+ + +-------+ +---------+---+---+ | phenylephrine (GENESIS-SYNEPHRINE) | Given | 06/17/20 | 200 mcg | | | | 0.1 mg/mL IV syringe PRN, | | 14 2:23 | | | | | Starting 06/17/14 at 1417, | | PM PST | | | | | Anesthesia Intra-op | | | | | | + +-------+ +---------+---+---+ +-------+ +---------+---+---+ | Given | 06/17/20 | 200 mcg | | | | | 14 2:20 | | | | | | PM PST | | | | +-------+ +---------+---+---+ | Given | 06/17/20 | 100 mcg | | | | | 14 2:17 | | | | | | PM PST | | | | +-------+ +---------+---+---+ +---+---+ | | | +---+---+ + +-------+ +--------+---+---+ | propofol (DIPRIVAN) injection | Given | 06/17/20 | 130 mg | | | | PRN, Starting Sun06/17/14 at | | 14 2:17 | | | | | 1417, Anesthesia Intra-op | | PM PST | | | | + +-------+ +--------+---+---+ +---+---+ | | | +---+---+ + +-------+ +-------+---+---+ | succinylcholine (ANECTINE) | Given | 06/17/20 | 60 mg | | | | injection Intravenous, PRN, | | 14 2:17 | | | | | Starting Sun06/17/14 at 1417, | | PM PST | | | | | Anesthesia Intra-op | | | | | | + +-------+ +-------+---+---+ +---+---+ | | | +---+---+ + +-------+ +-----+---+---+ | vancomycin 1 g in sodium | Given | 06/17/20 | 1 g | | | | chloride 0.9% 250 mL IVPB 1 g, | | 14 2:00 | | | | | Intravenous, Administer over 60 | | PM PST | | | | | Minutes, Prior to Incision, | | | | | | | Starting 06/17/14 at 1226, | | | | | | | For 1 dose, Administer within 1 | | | | | | | hour of surgical incision. | | | | | | | Activate system and mix before | | | | | | | use., Pre-op | | | | | | + +-------+ +-----+---+---+ +---------+ +-----+-------+---+ | New Bag | 06/17/20 | 1 g | 250 | | | | 14 1:45 | | mL/hr | | | | PM PST | | | | +---------+ +-----+-------+---+ +---+---+ | | | +---+---+ + +-------+ +---------+---+---+ | vasopressin (PITRESSIN) | Given | 06/17/20 | 4 Units | | | | injection Intravenous, PRN, | | 14 4:21 | | | | | Starting 06/17/14 at 1423, | | PM PST | | | | | Anesthesia Intra-op | | | | | | + +-------+ +---------+---+---+ +-------+ +---------+---+---+ | Given | 06/17/20 | 4 Units | | | | | 14 3:21 | | | | | | PM PST | | | | +-------+ +---------+---+---+ | Given | 06/17/20 | 4 Units | | | | | 14 3:13 | | | | | | PM PST | | | | +-------+ +---------+---+---+ +---+---+ | | | +---+---+ documented in this encounter
--- OUTSIDE RECORDS SUMMARY | ~2019-07-02 | XMS | Encounter Summary ---
Demographics + + + | Address | [address] | | | [place] [address] | + + + | Home Phone | | + + + | Preferred Language | Unknown | + + + | Marital Status | | + + + | Gnosticism Affiliation | 1076 | + + + | Race | Unknown | + + + | Ethnic Group | Unknown | + + + Author + + + | Author | [facility] | | | and Primo | + + + | Organization | [facility] | | | and [place] | + + + | Address | Unknown | + + + | Phone | Unavailable | + + + Support + + + + + | Name | Relationship | Address | Phone | + + + + + | Devang Fernandez | [place] | [address] | | | | | [place], [place] | | | | | [address] | | + + + + + | Dalton Fernandez | ECON | Unknown | | + + + + + | Juana Fernandez | ECON | Unknown | | + + + + + Care Team Providers + +------+ + | Care Metal Wire Coating Operator Name | Role | Phone | + +------+ + | Dutch Rodriguez DO | PCP | | + +------+ + Reason for Referral Evaluate & Treat (Routine) +--------+ + + + + + | Status | Reason | Specialty | Diagnoses / | Referred By | Referred To | | | | | Procedures | Contact | Contact | +--------+ + + + + + | Closed | Specialty | Physical | Diagnoses | [facility], | [facility] | | | Services | Therapy | | Nino | [facility] | | | Required | | Spondylolist | [facility] | | | | | hesis of | [address] | | | | | lumbar | [address] | [address] | | | | | region | [address] | [place], [place] | | | | | Lumbar | [place], | [address] | | | | | radiculopath | [place] [address] | Phone: | | | | | y S/P | Phone: | [phone] | | | | | lumbar | [phone] | Fax: | | | | | fusion | Fax: | [phone] | | | | | | [phone] | | +--------+ + + + + + Reason for Visit + + + | Reason | Comments | + + + | Follow-up | post op | + + + Encounter Details +--------+ + + + + | Date | Type | Department | Care Team | Description | +--------+ + + + + | 07/22/ | Follow-Up | [facility] | Nino Hurst | Spondylolisthesis of | | 2013 | | NEUROSURGERY [address] | [place] [address] | lumbar region | | | | [address] | [address] | (Primary Dx); Lumbar | | | | [place], [place] | [place] | radiculopathy; S/P | | | | [address] | [id number] | lumbar fusion | | | | [phone] | | | +--------+ + + + [...] + + + | Blood Pressure | 104/64 | 07/22/2014 1:02 PM | | | | | PST | | + + + + + | Pulse | 116 | 07/22/2014 1:02 PM | | | | | PST | | + + + + + | Temperature | - | - | | + + + + + | Respiratory Rate | 16 | 07/22/2014 1:02 PM | | | | | PST | | + + + + + | Oxygen Saturation | - | - | | + + + + + | Inhaled Oxygen | - | - | | | Concentration | | | | + + + + + | Weight | 75.8 kg (167 lb) | 07/22/2014 1:02 PM | | | | | PST | | + + + + + | Height | 154.9 cm (5' 1") | 07/22/2014 1:02 PM | | | | | PST | | + + + + + | Body Mass Index | 31.55 | 07/22/2014 1:02 PM | | | | | PST | | + + + + + documented in this encounter Patient Instructions Patient Instructions Nino Hurst PA - 07/22/2014 1:34 PM PSTAt this time you can increase your activities allowing lifting up to 15 pounds. In 1-2 weeks you can start the process of weaning your brace. In 2-3 weeks you can start with physical therapy. In 2 dayami hs would like to see you back with x-rays of your lumbar spine. SPINE BRACE WEANING PROTOCOL (5 WEEKS) Below are instructions for weaning your brace. You can move through the weeks slower if yo u feel the need to do so, but the overall goal is to get you out of the brace slowly over th e next several weeks. WEEK 1 If you have been using your brace for activities like sleeping, showering, do not use the b race for these activities any longer but continue using it for everything else. WEEK 2 Stop wearing your brace for sitting and short distance walking. You should use the brace f or anything more involved. WEEK 3 Stop using the brace for medium distance walking. You can bend and twist your back but sti ll proceed slowly with these activities. WEEK 4 Stop using the brace for everything but the most difficult tasks. You should now be able to go on long walks and lift more weight as directed. Add more bending and twisting as tolera dahiana. WEEK 5 Stop using the brace for daily use. I would encourage you to use the brace in the future f or activities that you know might aggravate your back or cause pain. You should still work to strengthen your back and use good technique when poultry picking machine tender things and bending. Electronica lly signed by MIREYA Martinez at 07/22/2014 1:34 PM PST documented in this encounter Progress Notes Nino Hurst PA - 07/22/2014 1:38 PM PSTFormatting of this note might be differen t from the original. MIREYA Estrella [address] [place] [address], [address] [place] [address] FAX: NEUROSURGERY SURGICAL FOLLOW-UP CHIEF COMPLAINT: Chief Complaint Patient presents with Follow-up post op HISTORY OF PRESENT ILLNESS: The patient is a 63 y.o. female that had a lumbar fusion by Dr Katy michelle around 4 weeks ago. She returns and overall is doing well. The patient complains of some occasional leg pain as well as low back pain but overall things are improving. The pat ient has been walking as much as possible. She is still taking pain medications at this poi nt. The patient has had no issues with her surgical site. CURRENT MEDICATIONS: Current Outpatient Prescriptions Medication Sig Dispense Refill Artificial Tear Insert (LACRISERT OP) Apply 1 drop to eye nightly. aspirin 325 mg tablet Take 325 mg by mouth Daily. b complex vitamins tablet Take 1 tablet by mouth Daily. Liquid B Complex Calcium Carbonate (CALCIUM 600 PO) Take by mouth in the morning and in the evening. Carboxymethylcellulose Sodium (REFRESH PLUS OP) Apply to eye as needed. cholecalciferol (VITAMIN D-3) 2000 UNITS TABS Take 1,000 Units by mouth Daily. CRANBERRY FRUIT PO Take 200 mg by mouth in the morning and in the evening. cyclobenzaprine (FLEXERIL) 10 mg tablet Take 1 tablet by mouth every 8 hours as needed for Muscle spasms. 90 tablet 3 CycloSPORINE (RESTASIS OP) Apply 1 drop to eye nightly. EPINEPHrine (EPIPEN) 0.3 mg/0.3 mL injection Inject 0.3 mg into the muscle as needed. fish oil 1,000 mg capsule Take 1,000 mg by mouth 2 times daily. gabapentin (NEURONTIN) 300 mg capsule 1 TAB PO QHS X 5 DAYS, THEN 1 TAB PO BID X 5 DAYS , THEN 1 TAP PO TID 90 capsule 2 HYDROcodone-acetaminophen (NORCO) 5-325 mg per tablet Take 1-2 tablets by mouth every 4 hours as needed for Pain. 120 tablet 0 IRON PO Take by mouth in the morning and in the evening. Loratadine (CLARITIN PO) Take by mouth in the morning and in the evening. minocycline (DYNACIN) 50 MG tablet Take 50 mg by mouth every morning. omeprazole (PRILOSEC) 20 mg capsule Take 20 mg by mouth nightly. Pediatric Multiple Vitamins (FLINTSTONES MULTIVITAMIN PO) Take by mouth every morning. pilocarpine (SALAGEN) 5 mg tablet Take 5 mg by mouth 4 times daily. UNABLE TO FIND Med Name: Black Current Seed Oil for Joint Pain in Knees Take 3am and 2pm ALLERGIES: Allergies Allergen Reactions Onion Shortness Of Breath and Other (See Comments) Swelling mouth, migraines, and 3 days of knotting stomach Codeine Other (See Comments) Cotton Mouth Food Nausea Only Any kind of pepper Penicillins Rash SOCIAL HISTORY: The patient reports that she has never smoked. She has never used smokeless tobacco. She r eports that she drinks alcohol. She reports that she does not use illicit drugs. INTERIM PHYSICAL EXAMINATION: Blood pressure 104/64, pulse 116, resp. rate 16, height 1.549 m (5' 1"), weight 75.751 kg ( 167 lb). Body mass index is 31.57 kg/(m^2). GENERAL: Mike Fernandez is in no acute distress with unlabored respirations. SPINE: The patient s incisions are healing well without drainage, significant erythema, o r discharge EXTREMITIES: No lower extremity edema. NEUROLOGICAL EXAMINATION: MENTAL STATUS: The patient is awake, alert, and oriented. She follows simple and complex commands MOTOR EXAM: Motor strength is improving. SENSORY EXAM: The sensory examination improved from the preoperative exam. RADIOGRAPHIC REVIEW: The patient s postoperative x-rays show stable instrumentation and alignment and were rev iewed with the patient today. There have been no interval changes since the immediate posto perative films. Complete fusion has not yet occurred, but this is normal and would not be e xpected at this time. ASSESSMENT: S/P lumbar fusion for: Encounter Diagnoses Name Primary? Spondylolisthesis of lumbar region Yes Lumbar radiculopathy S/P lumbar fusion Past Medical History Diagnosis Date Gastric reflux Migraine PLAN: Overall, the patient is doing well. I increased the patient s activities slowly now allowing 15 pound lifting and also will b egin the process of brace weaning. I would like the patient to advance slowly with this pro cess and discussed this at length during today's visit. I would also like the patient to co ntinue with postoperative rehabilitation and to advance with therapy as tolerated. I am hoping to see improvement over the coming weeks to months and plan to continue to foll ow this patient. The patient will follow-up with me in around 8 weeks for re-evaluation. ELECTRONICALLY SIGNED BY: MIREYA Estrella, 07/22/2014 13:38 documented in th is encounter Plan of Treatment +--------+---------+ + + + | Date | Type | Specialty | Care Team | Description | +--------+---------+ + + + | 07/22/ | Office | Orthopedic Surgery | Ramin Bess | | | 2019 | Visit | | MD Swathi Gonzalez | | | | | | [place] | | | | | | [id number] | | | | | | | | +--------+---------+ + + + + + +--------+ + + | Name | Type | Priori | Associated Diagnoses | Order Schedule | | | | ty | | | + + +--------+ + + | OUTPATIENT PT | Outpatient | Routin | Spondylolisthesis | Ordered: 07/22/2014 | | EXTERNAL | Referral | e | of lumbar region | | | | | | Lumbar radiculopathy | | | | | | S/P lumbar fusion | | + + +--------+ + + documented as of this encounter Results XR Lumbar Spine 2 or 3 Vw (09/18/2014 11:58 AM PST) + + | Specimen | + + | | + + + + + | Narrative | Performed At | + + + | XR LUMBAR SPINE 2 OR 3 VW 09/18/2014 11:58 AM HISTORY: Postop. | [facility] | | COMPARISON: 07/22/2014, 06/18/2014. FINDINGS: There are [address] | [facility] | | nonrib-bearing vertebral bodies. Again visualized are hardware for | [facility] | | posterior fusion from L3 through L5 with interbody hardware at these | - IMAGING | | levels. The hardware remains intact. There remains mild | | | anterolisthesis of L3 over L4 and L4 over L5. Mild spondylosis is | | | present. There is diffuse osteopenia. A stable moderate to severe | | | compression fracture of T12 is again seen with retropulsion of | | | osseous fragments and mild retrolisthesis of T12 over L1. Mild | | | compression deformity is noted of T11 that is stable. Mild disc | | | narrowing are present at L3-4 and L4-5. There is moderate disc | | | narrowing at L5-S1. Facet sclerosis are present at multiple levels. | | | Visualized ribs and pelvic osseous structures show no acute findings. | | | There is mild atherosclerosis. IMPRESSION - Stable posterior | | | fusion from L3 through L5. Osteopenia with stable compression | | | deformities. Dictated and Signed by: Martin Pastor MD | | | Electronically signed: 09/18/2014 2:36 PM | | + + + + + | Procedure Note | + + | Silas, Rad Results In - 09/18/2014 2:39 PM PST XR LUMBAR SPINE 2 OR 3 VW 09/18/2014 | | 11:58 AMHISTORY: Postop.COMPARISON: 07/22/2014, 06/18/2014.FINDINGS:There are 5 | | nonrib-bearing vertebral bodies. Again visualized are hardware forposterior fusion from | | L3 through L5 with interbody hardware at these levels. Thehardware remains intact. There | | remains mild anterolisthesis of L3 over L4 and L4over L5. Mild spondylosis is present. | | There is diffuse osteopenia. A stablemoderate to severe compression fracture of T12 is | | again seen with retropulsionof osseous fragments and mild retrolisthesis of T12 over L1. | | Mild compressiondeformity is noted of T11 that is stable. Mild disc narrowing are | | present atL3-4 and L4-5. There is moderate disc narrowing at L5-S1. Facet sclerosis | | arepresent at multiple levels. Visualized ribs and pelvic osseous structures showno | | acute findings. There is mild atherosclerosis.IMPRESSION -Stable posterior fusion from | | L3 through L5.Osteopenia with stable compression deformities.Dictated and Signed by: | | Martin Pastor MD Electronically signed: 09/18/2014 2:36 PM | |deformity is noted of T11 that is stable. Mild disc narrowing are present at | |L3-4 and L4-5. There is moderate disc narrowing at L5-S1. Facet sclerosis are | |present at multiple levels. Visualized ribs and pelvic osseous structures show | |no acute findings. There is mild atherosclerosis. | | | |IMPRESSION - | |Stable posterior fusion from L3 through L5. | | | |Osteopenia with stable compression deformities. | | | |Dictated and Signed by: Martin Pastor MD | | Electronically signed: 09/18/2014 2:36 PM | + + + + + + + | Performing | Address | City/State/Zipcode | Phone Number | | Organization | | | | + + + + + | [facility] | [address] | [place] | [phone] | | [facility] | | [address] | | | - IMAGING | | | | + + + + + documented in this encounter Visit Diagnoses + + | Diagnosis | + + | Spondylolisthesis of lumbar region - Primary Acquired spondylolisthesis | + + | Lumbar radiculopathy Thoracic or lumbosacral neuritis or radiculitis, unspecified | + + | S/P lumbar fusion Arthrodesis status | + + documented in this encounter
--- OUTSIDE RECORDS SUMMARY | ~2019-07-02 | XMS | Encounter Summary ---
Demographics + + + | Address | [address] | | | [place] [address] | + + + | Home Phone | | + + + | Preferred Language | Unknown | + + + | Marital Status | | + + + | Yarsanism Affiliation | 1076 | + + + | Race | Unknown | + + + | Ethnic Group | Unknown | + + + Author + + + | Author | [facility] | | | and Primo | + + + | Organization | [facility] | | | and [place] [...] [place], [place] | | | | | [address] | | + + + + + | Dalton Fernandez | ECON | Unknown | | + + + + + | Juana Fernandez | ECON | Unknown | | + + + + + Care Team Providers + +------+ + | Care Special Collections Librarian Name | Role | Phone | + [...] | | | | | | | [facility] | | | | | | [...] +--------+ + + + + | 06/17/ | Hospital | [facility] | Douglas Nuñez MD | Acquired | | 2013 | Encounter | MED CTR XRAY [address] | [address] | spondylolisthesis | | | | [place] | [place] [address] | (Primary Dx) | | | | [place] [address] | [phone] | | | | | [phone] | | | +--------+ + + + [...] + + documented as of this encounter Medications at Time of Discharge + + + +---------+ + + | Medication | Sig | Dispensed | Refills | Start | End Date | | | | | | Date | | + + + +---------+ + + | b complex vitamins | Take 1 tablet by | | 0 | | | | tablet | mouth Daily. Liquid | | | | | | | B Complex | | | | | + + + +---------+ + + | Calcium Carbonate | Take by mouth in | | 0 | | | | (CALCIUM 600 PO) | the morning and in | | | | | | | the evening. | | | | | + + + +---------+ + + | | Place 1 drop into | | 0 | | | | Carboxymethylcellulo | both eyes as needed | | | | | | se Sodium (REFRESH | (for dry eyes). | | | | | | PLUS OP) | | | | | | + + + +---------+ + + | cholecalciferol | Take 1,000 Units by | | 0 | | | | (VITAMIN D-3) 2000 | mouth Daily. | | | | | | UNITS TABS | | | | | | + + + +---------+ + + | CRANBERRY FRUIT PO | Take 200 mg by mouth | | 0 | | | | | in the morning and | | | | | | | in the evening. | | | | | + + + +---------+ + + | Loratadine | Take 10 mg by mouth | | 0 | | | | (CLARITIN PO) | in the morning and | | | | | | | in the evening. | | | | | + + + +---------+ + + | minocycline | Take 50 mg by mouth | | 0 | | | | (DYNACIN) 50 MG | every morning. | | | | | | tablet | | | | | | + + + +---------+ + + | omeprazole | Take 20 mg by mouth | | 0 | | | | (PRILOSEC) 20 mg | nightly as needed | | | | | | capsule | (acid reflux). | | | | | + + + +---------+ + + | Pediatric Multiple | Take 1 tablet by | | 0 | | | | Vitamins | mouth every morning. | | | | | | (FLINTSTONES | | | | | | | MULTIVITAMIN PO) | | | | | | + + + +---------+ + + | pilocarpine | Take 5 mg by mouth 4 | | 0 | | | | (SALAGEN) 5 mg | times daily. | | | | | | tablet | | | | | | + + + +---------+ + + | Artificial Tear | Apply 1 drop to eye | | 0 | | | | Insert (LACRISERT | nightly. | | | | 6 | | OP) | | | | | | + + + +---------+ + + | aspirin 325 mg | Take 325 mg by mouth | | 0 | | | | tablet | Daily. | | | | 5 | + + + +---------+ + + | cyclobenzaprine | Take 1 tablet by | 90 | 3 | 06/19/20 | | | (FLEXERIL) 10 mg | mouth every 8 hours | tablet | | 14 | 6 | | tablet | as needed for Muscle | | | | | | | spasms. | | | | | + + + +---------+ + + | CycloSPORINE | Apply 1 drop to eye | | 0 | | | | (RESTASIS OP) | nightly. | | | | 6 | + + + +---------+ + + | EPINEPHrine | Inject 0.3 mg into | | 0 | | | | (EPIPEN) 0.3 mg/0.3 | the muscle as | | | | 5 | | mL injection | needed. | | | | | + + + +---------+ + + | fish oil 1,000 mg | Take 1,000 mg by | | 0 | | | | capsule | mouth 2 times daily. | | | | 6 | + + + +---------+ + + | | Take 1-2 tablets by | 120 | 0 | 06/19/20 | | | HYDROcodone-acetamin | mouth every 4 hours | tablet | | 14 | 5 | | ophen (NORCO) 5-325 | as needed for Pain. | | | | | | mg per tablet | | | | | | + + + +---------+ + + | ibuprofen (ADVIL, | Take 200 mg by mouth | | 0 | | | | MOTRIN) 200 mg | as needed. | | | | 4 | | tablet | | | | | | + + + +---------+ + + | IRON PO | Take 325 mg by mouth | | 0 | | | | | in the morning and | | | | 7 | | | in the evening. | | | | | + + + +---------+ + + | lactulose 10 g/15 | Take 30 mLs by mouth | 240 mL | 3 | 06/19/20 | | | mL solution | Daily as needed for | | | 14 | 4 | | | up to 10 days. | | | | | + + + +---------+ + + | UNABLE TO FIND | Med Name: Black | | 0 | | | | | Current Seed Oil for | | | | 5 | | | Joint Pain in | | | | | | | KneesTake 3am and | | | | | | | 2pm | | | | | + + + +---------+ + + documented as of this encounter Plan of Treatment +--------+---------+ + + + | Date | Type | Specialty | Care Team | Description | +--------+---------+ + + + | 07/22/ | Office | Orthopedic Surgery | Bess Ramin | | | 2018 | Visit | | MD Swathi Gonzalez | | | | | | [place] | | | | | | [address] | | | | | | | | +--------+---------+ + + + documented as of this encounter Procedures + +--------+ + + + | Procedure Name | Priori | Date/Time | Associated Diagnosis | Comments | | | ty | | | | + +--------+ + + + | MADDIE HERNANDEZ STATS NO | Routin | 06/17/2014 | Acquired | Results for this | | CHARGE | e | 5:07 PM | spondylolisthesis | procedure are in the | | | | PST | | results section. | + +--------+ + + + documented in this encounter Results MADDIE Mac (06/17/2014 5:07 PM PST) + + | Specimen | + + | | + + + + + | Narrative | Performed At | + + + | No Radiologist interpretation, please see Chart Review. | [facility] | + + + + + | Procedure Note | + + | 06/17/2014 5:08 PM PST No Radiologist interpretation, please see Chart Review. | + + + +---------+ + + | Performing | Address | City/State/Zipcode | Phone Number | | Organization | | | | + +---------+ + + | [facility] | | | | + +---------+ + + documented in this encounter Visit Diagnoses + + | Diagnosis | + + | Acquired spondylolisthesis - Primary | + + documented in this encounter"
--- OUTSIDE RECORDS SUMMARY | ~2019-07-02 | XMS | Encounter Summary ---
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 Done | | [facility] | | | Top Tube | | | [facility] | | | | | | [facility] | | | | [facility] - | | | | | | LABORATORY | | + +-------+ + + + + + | Specimen | + + | Blood | + + + + + + + | Performing | Address | City/State/Zipcode | Phone Number | | Organization | | | | + + + + + | [facility] | [address] | [place] | [phone] | | [facility] | | [address] | | | - LABORATORY | | | | + + + + + Urinalysis with Microscopic if Indicated (10/22/2016 9:47 PM PDT) + + + + + + | Component | Value | Ref Range | Performed | Pathologist | | | | | At | Signature | + + + + + + | Color | Yellow | Light Yellow, | [facility] | | | | | Yellow, Straw | [facility] | | | | | | [facility] | | | | | | CENTER - | | | | | | LABORATORY | | + + + + + + | Clarity | Hazy (A) | Clear | [facility] | | | | | | [facility] | | | | | | [facility] | | | | | | [facility] - | | | | | | LABORATORY | | + + + + + + | pH, Urine | 7.0 | 5.0 - 8.0 | [facility] | | | | | | [facility] | | | | | | [facility] | | | | | | C[facility] - | | | | | | LABORATORY | | + + + + + + | Specific | 1.015 | 1.001 - 1.030 | [facility] | | | [place] | | | [facility] | | | | | | [facility] | | | | | | CENTER - | | | | | | LABORATORY | | + + + + + + | Protein, | Negative | Negative | [facility] | | | Urine | | | [facility] | | | | | | [facility] | | | | | | CENTER - | | | | | | LABORATORY | | + + + + + + | Blood, | Negative | Negative | [facility] | | | Urine | | | [facility] | | | | | | [facility] | | | | | | CENTER - | | | | | | LABORATORY | | + + + + + + | Glucose, | Negative | Negative | [facility] | | | Urine | | | [facility] | | | | | | [facility] | | | | | | CENTER - | | | | | | LABORATORY | | + + + + + + | Ketones, | Negative | Negative | [facility] | | | Urine | | | [facility] | | | | | | [facility] | | | | | | CENTER - | | | | | | LABORATORY | | + + + + + + | Bilirubin, | Negative | Negative | [facility] | | | Urine | | | [facility] | | | | | | [facility] | | | | | | CENTER - | | | | | | LABORATORY | | + + + + + + | Nitrite, | Negative | Negative | [facility] | | | Urine | | | [facility] | | | | | | [facility] | | | | | | CENTER - | | | | | | LABORATORY | | + + + + + + | Leukocyte | Negative | Negative | [facility] | | | Esterase, | | | [facility] | | | Urine | | | MEDICAL | | | | | | CENTER - | | | | | | LABORATORY | | + + + + + + | Urobilinoge | Negative | 0.2 mg/dL, 1.0 | [facility] | | | n, Urine | | mg/dL, Negative | [facility] | | | | | | [facility] | | | | | | CENTER - | | | | | | LABORATORY | | + + + + + + | WBC UA | 2-5 (A) | 0 - 2 /HPF | [facility] | | | | | | [facility] | | | | | | [facility] | | | | | | [facility] - | | | | | | LABORATORY | | + + + + + + | RBC UA | 0-2 | 0 - 2 /HPF | [facility] | | | | | | [facility] | | | | | | [facility] | | | | | | [facility] - | | | | | | LABORATORY | | + + + + + + | SQUAMOUS | 0-2 | 0 - 2 /LPF | [facility] | | | EPITHELIAL | | | [facility] | | | UA | | | MEDICAL | | | | | | CENTER - | | | | | | LABORATORY | | + + + + + + | BACTERIA UA | Negative | Negative /HPF | [facility] | | | | | | [facility] | | | | | | [facility] | | | | | | [facility] - | | | | | | LABORATORY | | + + + + + + | MUCUS UA | Present (A) | Negative /LPF | [facility] | | | | | | [facility] | | | | | | [facility] | | | | | | [facility] - | | | | | | LABORATORY | | + + + + + + | AMORPHOUS | Few (A) | None Seen /HPF | [facility] | | | CRYSTALS | | | [facility] | | | | | | [facility] | | | | | | CENTER - | | | | | | LABORATORY | | + + + + + + + + | Specimen | + + | Urine - Urine | | specimen obtained by | | clean catch | | procedure (specimen) | + + + + + + + | Performing | Address | City/State/Zipcode | Phone Number | | Organization | | | | + + + + + | [facility] | [address] | [place] | [phone] | | [facility] | | [address] | | | - LABORATORY | | | | + + + + + CBC with Differential (10/22/2016 9:14 PM PDT) + + + + + + | Component | Value | Ref Range | Performed | Pathologist | | | | | At | Signature | + + + + + + | WBC | 9.2 | 4.0 - 11.0 K/uL | [facility] | | | | | | [facility] | | | | | [facility] | | | | | [facility] - | | | | | | LABORATORY | | + + + + + + | RBC | 3.84 | 3.70 - 5.20 | [facility] | | | | | M/uL | [facility] | | | | | | [facility] | | | | | | C[facility] - | | | | | | LABORATORY | | + + + + + + | Hemoglobin | 11.7 | 11.5 - 16.0 | [facility] | | | | | g/dL | [facility] | | | | | | [facility] | | | | | | C[facility] - | | | | | | LABORATORY | | + + + + + + | Hematocrit | 35.3 | 34.0 - 47.0 % | [facility] | | | | | | [facility] | | | | | [facility] | | | | | | [facility] - | | | | | | LABORATORY | | + + + + + + | MCV | 92.1 | 83.0 - 101.0 fL | [facility] | | | | | | [facility] | | | | | | [facility] | | | | | | [facility] - | | | | | | LABORATORY | | + + + + + + | MCH | 30.4 | 28.0 - 35.0 pg | [facility] | | | | | | [facility] | | | | | | [facility] | | | | | | [facility] - | | | | | | LABORATORY | | + + + + + + | MCHC | 33.1 | 32.0 - 36.0 | [facility] | | | | | g/dL | [facility] | | | | | | [facility] | | | | | | CENTER - | | | | | | LABORATORY | | + + + + + + | RDW-CV | 13.4 | <15.0 % | [facility] | | | | | | [facility] | | | | | | [facility] | | | | | | [facility] - | | | | | | LABORATORY | | + + + + + + | Platelet | 257 | 140 - 440 K/uL | [facility] | | | Count | | | [facility] | | | | | | [facility] | | | | | | [facility] - | | | | | | LABORATORY | | + + + + + + | MPV | 7.6 | fL | [facility] | | | | | | [facility] | | | | | | [facility] | | | | | | [facility] - | | | | | | LABORATORY | | + + + + + + | % | 79.2 | 45.0 - 82.0 % | [facility] | | | Neutrophils | | | [facility] | | | | | | [facility]ICAL | | | | | | CENTER - | | | | | | LABORATORY | | + + + + + + | % | 13.0 (L) | 20.0 - 45.0 % | [facility] | | | Lymphocytes | | | [facility] | | | | | | [facility] | | | | | | CENTER - | | | | | | LABORATORY | | + + + + + + | % Monocytes | 6.6 | 4.0 - 12.0 % | [facility] | | | | | | [facility] | | | | | | [facility] | | | | | | [facility] - | | | | | | LABORATORY | | + + + + + + | % | 0.9 | 0.0 - 5.0 % | [facility] | | | Eosinophils | | | [facility] | | | | | | [facility] | | | | | | CENTER - | | | | | | LABORATORY | | + + + + + + | % Basophils | 0.3 | 0.0 - 1.0 % | [facility] | | | | | | [facility] | | | | | | [facility] | | | | | | CENTER - | | | | | | LABORATORY | | + + + + + + | Absolute | 7.30 | 1.80 - 8.50 | [facility] | | | Neutrophils | | K/uL | [facility] | | | | | | [facility] | | | | | | C[facility] - | | | | | | LABORATORY | | + + + + + + | Absolute | 1.20 | 0.60 - 3.20 | [facility] | | | Lymphocytes | | K/uL | [facility] | | | | | | [facility] | | | | | | [facility] - | | | | | | LABORATORY | | + + + + + + | Absolute | 0.60 | 0.00 - 1.00 | [facility] | | | Monocytes | | K/uL | [facility] | | | | | | [facility] | | | | | | [facility] - | | | | | | LABORATORY | | + + + + + + | Absolute | 0.10 | 0.00 - 0.40 | [facility] | | | Eosinophils | | K/uL | [facility] | | | | | | [facility] | | | | | | CENTER - | | | | | | LABORATORY | | + + + + + + | Absolute | 0.00 | 0.00 - 0.10 | [facility] | | | Basophils | | K/uL | [facility] | | | | | | [facility] | | | | | | [facility] - | | | | | | LABORATORY | | + + + + + + + + | Specimen | + + | Blood | + + + + + + + | Performing | Address | City/State/Zipcode | Phone Number | | Organization | | | | + + + + + | [facility] | [address] | [place] | [phone] | | [facility] | | [address] | | | - LABORATORY | | | | + + + + + Comprehensive Metabolic Panel (10/22/2016 9:13 PM PDT) + + + + + + | Component | Value | Ref Range | Performed | Pathologist | | | | | At | Signature | + + + + + + | Na | 139 | 136 - 149 | [facility] | | | | | mmol/L | [facility] | | | | | | [facility] | | | | | | CENTER - | | | | | | LABORATORY | | + + + + + + | K | 3.8 | 3.5 - 5.1 | [facility] | | | | | mmol/L | [facility] | | | | | | [facility] | | | | | | CENTER - | | | | | | LABORATORY | | + + + + + + | Cl | 102 | 98 - 109 mmol/L | [facility] | | | | | | [facility] | | | | | | [facility] | | | | | | [facility] - | | | | | | LABORATORY | | + + + + + + | CO2 | 26 | 24 - 31 mmol/L | [facility] | | | | | | [facility] | | | | | | [facility] | | | | | | C[facility] - | | | | | | LABORATORY | | + + + + + + | Anion Gap | 11 | 3 - 16 mmol/L | [facility] | | | | | | [facility] | | | | | | [facility] | | | | | | CENTER - | | | | | | LABORATORY | | + + + + + + | Glucose | 127 (H) | 70 - 109 mg/dL | [facility] | | | | | | [facility] | | | | | | [facility] | | | | | | CENTER - | | | | | | LABORATORY | | + + + + + + | BUN | 11 | 7 - 18 mg/dL | [facility] | | | | | | [facility] | | | | | | [facility] | | | | | | C[facility] - | | | | | | LABORATORY | | + + + + + + | Creatinine | 0.67 | 0.60 - 1.30 | [facility] | | | | | mg/dL | [facility] | | [facility] | | | | [facility] | [facility] - | | | | | | LABORATORY | | + + + + + + | eGFR if not | >60Comment: GLOMERULAR | >=60 | [facility] | | | | FILTRATION | mL/min/1.73m2 | [facility] | | | ARGENTINE | RATE,ESTIMATED | | MEDICAL | | | | mL/min/1.89i8Emka than | | CENTER - | | | | 60 Chronic kidney | | LABORATORY | | | | disease,if found over a | | | | | | 3-month period.Less than | | | | | | 15 Kidney failureFor | | | | | | | | | | | | Americans,multiply the | | | | | | calculated GFR by 1.21. | | | | | | | | | | + + + + + + | Calcium | 8.5 | 8.3 - 10.5 | [facility] | | | | | mg/dL | [facility] | | | | | | MEDICAL | | | | | | CENTER - | | | | | | LABORATORY | | + + + + + + | Albumin | 3.1 (L) | 3.2 - 5.0 g/dL | [facility] | | | | | | [facility] | | [facility] | | | [facility] | | | | | | CENTER - | | | | | | LABORATORY | | + + + + + + | Bilirubin | 0.6 | 0.1 - 1.5 mg/dL | [facility] | | | Total | | | [facility] | | | | | | [facility]ICAL | | | | | | CENTER - | | | | | | LABORATORY | | + + + + + + | Total | 6.1 | 6.0 - 7.8 g/dL | [facility] | | | Protein | | | [facility] | | | | | | [facility]ICAL | | | | | | CENTER - | | | | | | LABORATORY | | + + + + + + | AST | 23 | 10 - 42 U/L | [facility] | | | | | | [facility] | | | | | | [facility] | | | | | | CENTER - | | | | | | LABORATORY | | + + + + + + | ALT | 23 | 6 - 45 U/L | [facility] | | | | | | [facility] | | | | | | [facility] | | | | | | CENTER - | | | | | | LABORATORY | | + + + + + + | Alkaline | 54 | 40 - 110 U/L | [facility] | | | Phosphatase | | | [facility] | | | | | | MEDICAL | | | | | | CENTER - | | | | | | LABORATORY | | + + + + + + | Globulin | 3.0 | 2.1 - 3.8 g/dL | [facility] | | | | | | [facility] | | | | | | [facility] | | | | | | CENTER - | | | | | | LABORATORY | | + + + + + + | Albumin/Aparna | 1.0 | 0.8 - 2.0 | [facility] | | | bulin Ratio | | | [facility] | | | | | | [facility]ICAL | | | | | | CENTER - | | | | | | LABORATORY | | + + + + + + | BUN/Creatin | 16.4 | | [facility] | | | ine Ratio | | | [facility] | | | | | | MEDICAL | | | | | | CENTER - | | | | | | LABORATORY | | + + + + + + + + | Specimen | + + | Blood | + + + + + + + | Performing | Address | City/State/Zipcode | Phone Number | | Organization | | | | + + + + + | [facility] | [address] | [place] | [phone] | | [facility] | | [address] | | | - LABORATORY | | | | + + + + + ECG 12 lead (10/22/2016 9:08 PM PDT) + + + + + + | Component | Value | Ref Range | Performed | Pathologist | | | | | At | Signature | + + + + + + | VENTRICULAR | 110 | BPM | [facility] | | | RATE EKG | | | | | + + + + + + | ATRIAL RATE | 110 | BPM | [facility] | | + + + + + + | P-R | 184 | ms | [facility] | | | INTERVAL | | | | | + + + + + + | QRS | 86 | ms | [facility] | | | DURATION | | | | | + + + + + + | Q-T | 386 | ms | [facility] | | | INTERVAL | | | | | + + + + + + | Q-T | 522 | ms | [facility] | | | INTERVAL | | | | | | (CORRECTED) | | | | | + + + + + + | P WAVE AXIS | 64 | degrees | [facility] | | + + + + + + | QRS AXIS | 22 | degrees | [facility] | | + + + + + + | T AXIS | 46 | degrees | [facility] | | + + + + + + | INTERPRETAT | Sinus | | [facility] | | | ION TEXT | tachycardiaProlonged | | | | | | QTAbnormal ECGNo | | | | | | previous ECGs | | | | | | availableConfirmed by | | | | | | JONI CROWE MD ([id number]) | | | | | | on 10/23/2016 7:12:20 AM | | | | + + + + + + + + | Specimen | + + | | + + + + + | Narrative | Performed At | + + + | | | + + + + +---------+ + + | Performing | Address | City/State/Zipcode | Phone Number | | Organization | | | | + +---------+ + + | [facility] | | | | + +---------+ + + XR Ankle Left 2 Vw (10/22/2016 3:40 PM PDT) + + | Specimen | + + | | + + + + + | Narrative | Performed At | + + + | External films for comparison only - no result from [place]. | [facility] | + + + + +---------+ + + | Performing | Address | City/State/Zipcode | Phone Number | | Organization | | | | + +---------+ + + | [facility] | | | | + +---------+ + + XR Knee Left 1 - 2 Vw (10/22/2016 3:30 PM PDT) + + | Specimen | + + | | + + + + + | Narrative | Performed At | + + + | External films for comparison only - no result from [place]. | [facility] | + + + + +---------+ + + | Performing | Address | City/State/Zipcode | Phone Number | | Organization | | | | + +---------+ + + | [facility] | | | | + +---------+ + + documented in this encounter Visit Diagnoses Not on filedocumented in this encounter Administered Medications + +--------+ +--------+------+------+ | Medication Order | MAR | Action | Dose | Rate | Site | | | Action | Date | | | | + +--------+ +--------+------+------+ | acetaminophen (TYLENOL) tablet | Given | 10/26/19 | 975 mg | | | | 975 mg 975 mg (rounded from | | 17 1:11 | | | | | 1,000 mg), Oral, EVERY 8 HOURS (3 | | PM PDT | | | | | times per day), First dose on | | | | | | | 10/22/16 at 2200, For 3 days, | | | | | | | Start 8 hours after pre-op dose., | | | | | | | Post-op/Phase II | | | | | | + +--------+ +--------+------+------+ +-------+ +--------+---+---+ | Given | 10/26/19 | 975 mg | | | | | 17 6:32 | | | | | | AM PDT | | | | +-------+ +--------+---+---+ | Given | 10/25/19 | 975 mg | | | | | 17 9:42 | | | | | | PM PDT | | | | +-------+ +--------+---+---+ +---+---+ | | | +---+---+ + +-------+ +--------+---+---+ | cycloSPORINE (RESTASIS) 0.05% | Given | 10/26/19 | 1 drop | | | | ophthalmic emulsion 1 drop 1 | | 17 8:20 | | | | | drop, Both Eyes, 2 TIMES DAILY, | | AM PDT | | | | | First dose on 10/22/16 at | | | | | | | 2100, Hazardous: Use appropriate | | | | | | | handling precautions., | | | | | | + +-------+ +--------+---+---+ +-------+ +--------+---+---+ | Given | 10/25/19 | 1 drop | | | | | 17 9:43 | | | | | | PM PDT | | | | +-------+ +--------+---+---+ | Given | 10/25/19 | 1 drop | | | | | 17 8:44 | | | | | | AM PDT | | | | +-------+ +--------+---+---+ + +---+ | | | + +---+ | diphenhydrAMINE (BENADRYL) 12.5 | | | mg/5 mL liquid 25 mg 25 mg, | | | Oral, EVERY 4 HOURS PRN, Itching, | | | Starting 10/23/16 at 1808, | | | Oral route is preferred., | | | Post-op/Phase II | | + +---+ | | | + +---+ | diphenhydrAMINE (BENADRYL) | | | injection 12.5 mg 12.5 mg, | | | Intravenous, EVERY 4 HOURS PRN, | | | Itching, Starting 10/23/16 at | | | 1808, Oral route is preferred., | | | Post-op/Phase II | | + +---+ | | | + +---+ | diphenhydrAMINE (BENADRYL) | | | tablet 25 mg 25 mg, Oral, EVERY | | | 4 HOURS PRN, Itching, Starting | | | 10/23/16 at 1808, Oral route | | | is preferred., Post-op/Phase II | | + +---+ | | | + +---+ + +-------+ +-------+---+ + | enoxaparin (LOVENOX) 40 mg/0.4 | Given | 10/26/19 | 40 mg | | Abdomen- | | mL injection 40 mg 40 mg, | | 17 8:19 | | | LLQ | | Subcutaneous, EVERY 24 HOURS | | AM PDT | | | | | (Daily), First dose on Sun | | | | | | | 10/24/16 at 1900, Post-op/Phase II | | | | | | + +-------+ +-------+---+ + +-------+ +-------+---+ + | Given | 10/25/19 | 40 mg | | Abdomen- | | | 17 6:03 | | | RLQ | | | PM PDT | | | | +-------+ +-------+---+ + +---+---+ | | | +---+---+ + +-------+ +-------+---+---+ | famotidine (PEPCID) tablet 20 | Given | 10/26/19 | 20 mg | | | | mg 20 mg, Oral, 2 TIMES DAILY, | | 17 8:20 | | | | | First dose on 10/22/16 at | | AM PDT | | | | | 2130, Post-op/Phase II | | | | | | + +-------+ +-------+---+---+ +-------+ +-------+---+---+ | Given | 10/25/19 | 20 mg | | | | | 17 9:43 | | | | | | PM PDT | | | | +-------+ +-------+---+---+ | Given | 10/25/19 | 20 mg | | | | | 17 8:44 | | | | | | AM PDT | | | | +-------+ +-------+---+---+ +---+---+ | | | +---+---+ + +-------+ +--------+---+---+ | gabapentin (NEURONTIN) capsule | Given | 10/26/19 | 100 mg | | | | 100 mg 100 mg, Oral, 3 TIMES | | 17 1:11 | | | | | DAILY, First dose on 10/22/16 | | PM PDT | | | | | at 2130, For 3 days, Hold for | | | | | | | over-sedation, dizziness or | | | | | | | visual disturbance and contact | | | | | | | MD., Post-op/Phase II | | | | | | + +-------+ +--------+---+---+ +-------+ +--------+---+---+ | Given | 10/26/19 | 100 mg | | | | | 17 8:20 | | | | | | AM PDT | | | | +-------+ +--------+---+---+ | Given | 10/25/19 | 100 mg | | | | | 17 9:42 | | | | | | PM PDT | | | | +-------+ +--------+---+---+ +---+---+ | | | +---+---+ + +-------+ +--------+---+---+ | HYDROmorphone (DILAUDID) | Given | 10/24/19 | 0.4 mg | | | | injection 0.2-0.4 mg 0.2-0.4 mg, | | 17 1:37 | | | | | Intravenous, EVERY 1 HOUR PRN, | | PM PDT | | | | | Pain, Starting 10/22/16 at | | | | | | | 2105, If oral route not an | | | | | | | option. Slow IV push, not faster | | | | | | | than 0.3mg/minute. First dose | | | | | | | must be lowest dose, titrate to | | | | | | | effective dose by repeat of | | | | | | | lowest dose every 30 minutes prn | | | | | | | pain, may not exceed maximum dose | | | | | | | ordered per interval. Use | | | | | | | Pasero Sedation Scale., | | | | | | | Post-op/Phase II | | | | | | + +-------+ +--------+---+---+ +-------+ +--------+---+---+ | Given | 10/24/19 | 0.4 mg | | | | | 17 6:43 | | | | | | AM PDT | | | | +-------+ +--------+---+---+ | Given | 10/24/19 | 0.4 mg | | | | | 17 1:22 | | | | | | AM PDT | | | | +-------+ +--------+---+---+ +---+---+ | | | +---+---+ + +-------+ +------+---+---+ | HYDROmorphone (DILAUDID) tablet | Given | 10/26/19 | 2 mg | | | | 1-2 mg 1-2 mg, Oral, EVERY 3 | | 17 8:20 | | | | | HOURS PRN, Pain, Starting Sun | | AM PDT | | | | | 10/22/16 at 2105, First dose must | | | | | | | be the lowest dose, can titrate | | | | | | | to effective dose by repeat of | | | | | | | lowest dose every 60 minutes prn | | | | | | | pain, may not exceed maximum dose | | | | | | | ordered per interval. Use Pasero | | | | | | | Sedation Scale., Post-op/Phase | | | | | | | II | | | | | | + +-------+ +------+---+---+ +-------+ +------+---+---+ | Given | 10/25/19 | 2 mg | | | | | 17 9:43 | | | | | | PM PDT | | | | +-------+ +------+---+---+ | Given | 10/25/19 | 2 mg | | | | | 17 8:44 | | | | | | AM PDT | | | | +-------+ +------+---+---+ +---+---+ | | | +---+---+ + +---------+ +---+-------+---+ | lactated ringers (LR) infusion | New Bag | 10/24/19 | | 100 | | | at 100 mL/hr, Intravenous, | | 17 11:54 | | mL/hr | | | CONTINUOUS, Starting 10/22/16 | | PM PDT | | | | | at 2130, Post-op/Phase II | | | | | | + +---------+ +---+-------+---+ +---------+ +---+---+---+ | New Bag | 10/24/19 | | | | | | 17 3:26 | | | | | | PM PDT | | | | +---------+ +---+---+---+ | New Bag | 10/24/19 | | | | | | 17 2:32 | | | | | | PM PDT | | | | +---------+ +---+---+---+ +---+---+ | | | +---+---+ + +---------+ +--------+-------+---+ | lactated ringers (LR) infusion | New Bag | 10/24/19 | 1,000 | 100 | | | at 10-100 mL/hr, Intravenous, | | 17 2:30 | mLs | mL/hr | | | CONTINUOUS, Starting 10/23/16 | | PM PDT | | | | | at 1430, TKO. Use this instead of | | | | | | | NS unless dialysis patient., | | | | | | | Pre-op | | | | | | + +---------+ +--------+-------+---+ +---+---+ | | | +---+---+ + +---------+ +---+-------+---+ | lactated ringers (LR) infusion | New Bag | 10/24/19 | | 100 | | | at 100 mL/hr, Intravenous, | | 17 8:00 | | mL/hr | | | CONTINUOUS, Starting 10/23/16 | | PM PDT | | | | | at 1830, Post-op/Phase II | | | | | | + +---------+ +---+-------+---+ +---+---+ | | | +---+---+ + +-------+ +-------+---+---+ | pantoprazole (PROTONIX) DR | Given | 10/26/19 | 40 mg | | | | tablet 40 mg 40 mg, Oral, DAILY | | 17 6:32 | | | | | BEFORE BREAKFAST, First dose on | | AM PDT | | | | | 10/23/16 at 1830, Do not cut | | | | | | | or crush., Post-op/Phase II | | | | | | + +-------+ +-------+---+---+ +-------+ +-------+---+---+ | Given | 10/25/19 | 40 mg | | | | | 17 6:56 | | | | | | AM PDT | | | | +-------+ +-------+---+---+ +---+---+ | | | +---+---+ + +-------+ +------+---+---+ | pilocarpine (SALAGEN) tablet 5 | Given | 10/26/19 | 5 mg | | | | mg 5 mg, Oral, 4 TIMES DAILY, | | 17 1:11 | | | | | First dose on 10/22/16 at 2100 | | PM PDT | | | | + +-------+ +------+---+---+ +-------+ +------+---+---+ | Given | 10/26/19 | 5 mg | | | | | 17 8:20 | | | | | | AM PDT | | | | +-------+ +------+---+---+ | Given | 10/25/19 | 5 mg | | | | | 17 9:43 | | | | | | PM PDT | | | | +-------+ +------+---+---+ +---+---+ | | | +---+---+ + +-------+ +---------+---+---+ | probiotic formula capsule 1 | Given | 10/26/19 | 1 | | | | capsule 1 capsule, Oral, DAILY | | 17 8:20 | capsule | | | | WITH BREAKFAST, First dose on Mon | | AM PDT | | | | | 10/23/16 at 0800, Do not open or | | | | | | | crush., | | | | | | + +-------+ +---------+---+---+ +-------+ +---------+---+---+ | Given | 10/25/19 | 1 | | | | | 17 8:44 | capsule | | | | | AM PDT | | | | +-------+ +---------+---+---+ | Given | 10/24/19 | 1 | | | | | 17 9:33 | capsule | | | | | AM PDT | | | | +-------+ +---------+---+---+ + +---+ | | | + +---+ | sodium chloride 0.9% (NS) | | | infusion at 10-100 mL/hr, | | | Intravenous, CONTINUOUS, Starting | | | 10/23/16 at 1430, TKO. Use | | | this instead of LR if patient is | | | on dialysis., Pre-op | | + +---+ | | | + +---+ + +-------+ +-----+---+ + | vancomycin injection PRN, | Given | 10/24/19 | 1 g | | Surgical | | Starting 10/23/16 at 1516, | | 17 4:15 | | | Site | | Intra-op | | PM PDT | | | | + +-------+ +-----+---+ + +---+---+ | | | +---+---+ documented in this encounter
--- OUTSIDE RECORDS SUMMARY | ~2019-07-02 | XMS | Encounter Summary ---
Demographics + + + | Address | [address] | | | [place] [address] | + + + | Home Phone | | + + + | Preferred Language | Unknown | + + + | Marital Status | | + + + | Anabaptist Affiliation | [id number] | + + + | Race | Unknown | + + + | Ethnic Group | Unknown | + + + Author + + + | Author | [facility] | | | and Primo | + + + | Organization | [facility] | | | and [place] [...] [place], [place] | | | | | [address] | | + + + + + | Dalton Fernandez | ECON | Unknown | | + + + + + | Juana Fernandez | ECON | Unknown | | + + + + + Care Team Providers + +------+ + | Care Support Services Rep Name | Role | Phone | + +------+ + | Dutch Rodriguez DO | PCP | | + +------+ + Reason for Visit +--------+ + | Reason | Comments | +--------+ + | Other | preop | +--------+ + Encounter Details +--------+---------+ + + + | Date | Type | Department | Care Team | Description | +--------+---------+ + + + | 06/10/ | Office | [facility] | Aris Nino | Spondylolisthesis of | | 2013 | Visit | NEUROSURGERY [address] | [address] | lumbar region | | | | [address] | [address] | (Primary Dx); Lumbar | | | | [place], [place] | [place] [address] | radiculopathy; Back | | | | [address] | [phone] | pain | | | | [phone] | | | +--------+---------+ + + + [...] + + + | Blood Pressure | 114/60 | 06/10/2014 8:06 AM | | | | | PST | | + + + + + | Pulse | 84 | 06/10/2014 8:06 AM | | | | | PST | | + + + + + | Temperature | - | - | | + + + + + | Respiratory Rate | 18 | 06/10/2014 8:06 AM | | | | | PST | | + + + + + | Oxygen Saturation | - | - | | + + + + + | Inhaled Oxygen | - | - | | | Concentration | | | | + + + + + | Weight | 75.3 kg (166 lb) | 06/10/2014 8:06 AM | | | | | PST | | + + + + + | Height | 162.6 cm (5' 4") | 06/10/2014 8:06 AM | | | | | PST | | + + + + + | Body Mass Index | 28.49 | 06/10/2014 8:06 AM | | | | | PST | | + + + + + documented in this encounter Patient Instructions Patient Instructions Nino Hurst PA - 06/10/2014 8:34 AM PSTDo not eat or drink anything after midnight the night before your surgery. If you have any medical problems codie albrecht now and the day of your surgery please let us know. documented in this encounter Progress Notes Nino Hurst PA - 06/10/2014 8:36 AM PSTFormatting of this note might be differen t from the original. Nino GOMES-Heather [address] [facility], [address] [place], [place] [id number] FAX: NEUROSURGERY FOLLOW-UP CHIEF COMPLAINT: Chief Complaint Patient presents with Other preop HISTORY OF PRESENT ILLNESS: The patient is a 63 y.o. female with the complaint of low back pain and left leg numbness. The patient had been previously seen in our office. She has c ervical MRI which did not show any significant spinal stenosis. We are now planning to proc eed with surgery on her low back or ongoing problems with low back pain and in her leg pain/ numbness This patient states that she felt pretty good as far as her low back and her legs until in May of this last year she slipped and fell on ice. After that she had low back pain wh ich was really quite intense. Two days after the fall she had had enough back pain that she had to go to the emergency department. She was told at that time she had a fracture of her back and was given medication and asked to followup with her primary care back surgeon in t he future. Unfortunately, the patient is continued to have low back pain which is fairly se richardson and at times is at a level of 9/10. In November of this year, she started noticing numbne ss in the lateral portion of her left thigh extending into the lateral calf and into her gre at toe on the left side. The pain there is getting worse instead of better despite non-oper ative measures. The patient denies any upper extremity problems other than some occasionall y tingling in the fifth fingers bilaterally. No loss of fine motor skills or balance proble ms. She returns to discuss her imaging and options. Her symptoms improve with resting, medications. Her symptoms worsen with standing, long walking this, prolonged position. Her has tried physical therapy, medications. PAST MEDICAL HISTORY: Past Medical History Diagnosis Date Gastric reflux Migraine PAST SURGICAL HISTORY: Past Surgical History Procedure Date Cartilage removed from right ear Rotator cuff right shoulder December 25, 2013 CURRENT MEDICATIONS: Current Outpatient Prescriptions Medication Sig Dispense Refill Artificial Tear Insert (LACRISERT OP) Apply 1 drop to eye nightly. ASPIRIN by Does not apply route as needed. b complex vitamins tablet Take 1 tablet [...] in the morning and in the evening. CycloSPORINE (RESTASIS OP) Apply 1 drop to eye nightly. EPINEPHrine (EPIPEN) 0.3 mg/0.3 mL injection Inject 0.3 mg into the muscle as needed. fish oil 1,000 mg capsule Take 1,000 mg by mouth 2 times daily. ibuprofen (ADVIL, MOTRIN) 200 mg tablet Take 200 mg by mouth as needed. IRON PO Take by mouth in the [...] times daily. UNABLE TO FIND Med Name: Darryl Current Seed Oil for Joint Pain in Knees Take 3am and 2pm ALLERGIES: Allergies Allergen Reactions Codeine Other (See Comments) Cotton Mouth Onion Other (See Comments) Swelling mouth, migraines, and 3 days of knotting stomach Penicillins Rash SOCIAL HISTORY: The patient reports that she has never smoked. She has never used smokeless tobacco. She r eports that she drinks alcohol. She reports that she does not use illicit drugs. FAMILY HISTORY: Family History Problem Relation Age of Onset Heart defect Father Lung cancer Mother PHYSICAL EXAMINATION: Blood pressure 114/60, pulse 84, resp. rate 18, height 1.626 m (5' 4"), weight 75.297 kg (1 66 lb), not currently . Body mass index is 28.48 kg/(m^2). GENERAL: Mike Fernandez is in no acute distress with unlabored respirations. The gregg ent does appear uncomfortable throughout the exam today. HEENT: HEAD/FACE: EYES: EARS: NASOPHARNYX: OROPHARNYX: Normocephalic and atraumatic. There are no areas of recent trauma. Normal sclerae without icterus. CHEST: Clear to ausculation. HEART: Regular rate and rhythm. ABDOMEN: Non-distended. The patient is obese. SPINE: There is no tenderness in the midline of the cervical or thoracic spine. There is n o major palpable deformity of the spine. The lumbar spine shows there is tenderness in the midline of the L2, L3, L4, L5, S1 levels. To palpation, there is signficant right myofascial tenderness. EXTREMITIES: No edema. NEUROLOGICAL EXAM: MENTAL STATUS: The patient is awake, alert, and oriented. She follows simple and complex commands. She speech is fluent, she comprehends speech well, and she repeats well. She has no apparent deficits with short or buttermaker helper memory. MOTOR EXAM: (5 IS NORMAL) * Indicates pain limited MUSCLE/ MOVEMENT: RIGHT LEFT Deltoids 5 5 Biceps 5 5 Triceps 5 5 Wrist Flexion 5 5 Wrist Extension 5 5 Median Intrinsics 5 5 Ulnar Intrinsics 5 5 Office Rental Clerk Strength 5 5 Hip Flexion 5 5 Hip Extension 5 5 Knee Flexion 5 5 Knee Extension 5 5 Dorsiflexion 5 5 Extensor Hallicus Longus 5 5 Plantarflexion 5 5 SENSORY EXAM: Sensory exam shows no diminished sensation to light touch or pain throughout the upper and lower extremities. REFLEXES: (2 OR 2+ IS NORMAL) REFLEX: RIGHT LEFT BICEPS 3+ 3+ BRACHIORADIALIS 3+ 3+ TRICEPS 3 3+ PATELLAR 3+ 3 ACHILLES 2 2 AL'S positive positive PLANTAR DOWNGOING DOWNGOING GAIT: Gait is steady. RADIOGRAPHIC REVIEW: The patient's imaging was reviewed in detail with the patient today during the visit. The images show lumbar spondylolisthesis at L3-4 and L4-5 with stenosis of the canal and foramen at those segments. DDD changes and facet arthropathy are also present. There are two heale d compression fractures of the thoracic spine without cord compression. ASSESSMENT: NEUROSURGICAL DIAGNOSES: Encounter Diagnoses Name Primary? Spondylolisthesis of lumbar region Yes Lumbar radiculopathy Back pain GENERAL DIAGNOSES: Past Medical History Diagnosis Date Gastric reflux Migraine PLAN: It was a pleasure meeting and evaluating this patient today, and I greatly appreciate the alexandria sánchez. The patient has lumbar spondylolisthesis as her likely cause of leg symptoms. I d iscussed a L3-5 TLIF as an option given her failed conservative care. We discussed the risks, alternatives, and benefits to surgical intervention as previously d iscussed with Dr. michelle. Today we discussed surgical techniques involved with her surgery as well as the postoperative recovery period. All of her questions as well as her 's qu estions were answered today detail I recommended for this patient that she be fitted with a brace before surgery to improve he r stability now to support her weak muscles and to reduce pain by restricting mobility. For multiple (more than 1 level fusions), I recommend the use of a bone growth stimulator p ostoperatively. This is to improve the probability and rate of fusion. ELECTRONICALLY SIGNED BY: Nino Hurst PA-C 06/10/2014 8:37 documented in th is encounter Plan of Treatment +--------+---------+ + + + | Date | Type | Specialty | Care Team | Description | +--------+---------+ + + + | 07/22/ | Office | Orthopedic Surgery | Ramin Bess | | | 2019 | Visit | | MD Lisa [facility] | | | | | | [place] | | | | | | [id number] | | | | | | | | +--------+---------+ + + + documented as of this encounter Visit Diagnoses + + | Diagnosis | + + | Spondylolisthesis of lumbar region - Primary Acquired spondylolisthesis | + + | Lumbar radiculopathy Thoracic or lumbosacral neuritis or radiculitis, unspecified | + + | Back pain Backache, unspecified | + + documented in this encounter
--- OUTSIDE RECORDS SUMMARY | ~2019-07-02 | XMS | Encounter Summary ---
Demographics + + + | Address | [address] | | | [place] [address] | + + + | Home Phone | | + + + | Preferred Language | Unknown | + + + | Marital Status | | + + + | Scientologist Affiliation | 1076 | + + + | Race | Unknown | + + + | Ethnic Group | Unknown | + + + Author + + + | Author | [facility] | | | and Primo | + + + | Organization | [facility] | | | and [place] [...] [place], [place] | | | | | [address] | | + + + + + | Dalton Koroma | ECON | Unknown | | + + + + + | Juana Koroma | ECON | Unknown | | + + + + + Care Team Providers + +------+ + | Care Community Resource Officer Name | Role | Phone | + +------+ + | Dutch Valencia DO | PCP | | + +------+ + Reason for Visit +---------+ + | Reason | Comments | +---------+ + | Post Op | right total knee arthroplasty dos 05/26/15 | +---------+ + Encounter Details +--------+---------+ + + + | Date | Type | Department | Care Team | Description | +--------+---------+ + + + | 07/27/ | Office | [facility] | Ramin Huggins | S/P orthopedic | | 2015 | Visit | ORTHOPEDIC SURGERY | MD Swathi Gonzalez | surgery, follow-up | | | | [address] | [place] | exam (Primary Dx) | | | | [place] | [address] | | | | | [address] | | | | | | [phone] | | | +--------+---------+ + + + [...] + + + + | Temperature | 37.1 C (98.8 F) | 07/27/2015 11:24 AM | | | | | PST [...] + + + + | Height | - | - | | + [...] encounter Progress Notes Ramin Huggins MD - 07/27/2015 12:51 PM PSTSee soap note [id number].Electronically sign ed by Ramin Huggins MD at 07/27/2015 12:51 PM PSTHendersRamin howell MD - 5 12:51 PM PST [facility]IC SURGERY [address] [place] [id number] OFFICE NOTE RAMIN HUGGINS MD Patient: MYRIAM KOROMA Admitting: MR #: [id number] LOC: PT TYPE: Adm Date: 07/27/2015 : 1950 Myriam returns today for followup of her right total knee joint arthroplasty performed on , approximately 2 months ago. Today, she notes that her knee is doing well. It fe els comfortable. She has resumed most of her normal physical activities. EXAMINATION: The patient's right knee is examined. Incision is clean, dry and nicely hea led. Her motion is 1-121 degrees. The knee joint is stable. Neurovascular function is in tact to right foot. ADVICE: Myriam is doing well. She will continue to complete her physical therapy, which w ill be completed by the end of this month. She may proceed with activities to tolerance. We will plan to see her back in 6-8 weeks for clinical followup and discussion regarding a left total knee joint replacement if desired. RAMIN HUGGINS MD Dictated by RAMIN HUGGINS MD 07/27/2015 12:51:19 Transcribed on 07/28/2015 05:25:[address] shahid# [id number] Confirmation #: [id number] cc: DUTCH VALENCIA DO documented in this encounter Plan of Treatment +--------+---------+ + + + | Date | Type | Specialty | Care Team | Description | +--------+---------+ + + + | 07/22/ | Office | Orthopedic Surgery | Ramin Huggins | | | 2018 | Visit | | MD Swathi Gonzalez | | | | | | [place] | | | | | | [id number] | | | | | | | | +--------+---------+ + + + documented as of this encounter Visit Diagnoses + + | Diagnosis | + + | S/P orthopedic surgery, follow-up exam - Primary Follow-up examination, following | | other surgery | + + documented in this encounter"
--- OUTSIDE RECORDS SUMMARY | ~2019-07-02 | XMS | Encounter Summary ---
Demographics + + + | Address | [address] | | | [place] [address] | + + + | Home Phone | | + + + | Preferred Language | Unknown | + + + | Marital Status | | + + + | Christian Affiliation | 1076 | + + + | Race | Unknown | + + + | Ethnic Group | Unknown | + + + Author + + + | Author | [facility] | | | and Primo | + + + | Organization | [facility] | | [...] [place], [place] | | | | | [address] | | + + + + + | Dalton Fernandez | ECON | Unknown | | + + + + + | Juana Fernandez | ECON | Unknown | | + + + + + Care Team Providers + +------+ + | Care Loft Rigger Name | Role | Phone | + +------+ + | Dutch Rodriguez DO | PCP | | + +------+ + Encounter Details +--------+ + + + + | Date | Type | Department | Care Team | Description | +--------+ + + + + | 04/27/ | Orders Only | [facility] [place] | Ramin Bess | Pelvic cyst (Primary | | 2014 | | ORTHOPEDIC SURGERY | MD Lisa [address] | Dx) | | | | [address] [facility] | [place] | | | | | [place] | [address] | | | | | [address] | | | | | | [phone] | | | +--------+ + + + [...] documented as of this encounter Progress Notes Dinah Baker CMA - 04/27/2015 5:[address] Bess, patient needs to get a pelv ic ultrasound, radiologist found a large collection of fluid in the pelvic area. This was ob served in the MRI done for prosthesis purposes. The order was placed and patient was notifie d & expressed understanding. She was then transferred to our radiologist department for sche duling. documented in this encounter Plan of Treatment +--------+---------+ + + + | Date | Type | Specialty | Care Team | Description | +--------+---------+ + + + | 07/22/ | Office | Orthopedic Surgery | Ramin Bess | | | 2018 | Visit | | MD Lisa [address] [place] [address] | | | | | | [place] | | | | | | [id number] | | | | | | | | +--------+---------+ + + + documented as of this encounter Results US Pelvis W Transvaginal (04/30/2015 3:55 PM PDT) + + | Specimen | + + | | + + + + + | Narrative | Performed At | + + + | TRANSABDOMINAL AND TRANSVAGINAL PELVIC ULTRASOUND 04/30/2015 3:01 PM | [facility] | | CLINICAL HISTORY: large collection of fluid in the pelvis on | [facility] | | recent knee prosthesis planning MRI COMPARISON: Knee prosthesis | [facility] | | planning MR images April 27 TRANSABDOMINAL FINDINGS: The | - IMAGING | | uterus measures approximately 5.3 x 2.0 x 3.8 m and is grossly | | | unremarkable. A large, anechoic appearing fluid collection is noted | | | along the left posterior aspect of the uterus, and accounts for the | | | the finding on comparison MRI. A right ovary containing tiny cysts | | | is suggested. No free pelvic fluid is evident. TRANSVAGINAL | | | FINDINGS: Transvaginal scanning is performed to better characterize | | | the uterus and adnexa. No myometrial abnormality is evident. The | | | endometrium measures 3 mm in width. No endometrial fluid collection | | | is apparent. The right ovary measures 2.6 x 1.9 x 2.5 cm and the | | | left ovary measures 7.2 x 6.0 x 6.4 cm. Several tiny, fairly | | | anechoic appearing cysts are noted within the right ovary and measure | | | up to 8 mm in maximal dimension. There is no suspicious | | | vascularity on Doppler interrogation. A large anechoic cyst | | | measuring up to 7.2 x 0.0 x 6.4 cm is noted in the left adnexal | | | region, and demonstrates a solitary thin peripheral septation without | | | internal vascularity on Doppler interrogation. Normal stromal | | | waveforms are present in the right ovary on duplex interrogation. | | | Interrogation of the margin of the left adnexal cyst demonstrates | | | waveforms typical for ovarian tissue as well. No separate left | | | ovary is evident. No free pelvic fluid is evident. IMPRESSION - | | | 1. 7.2 CM ANECHOIC, MINIMALLY SEPTATED CYST IN THE LEFT ADNEXA, | | | LIKELY OVARIAN IN ORIGIN AND ACCOUNTING FOR THE FINDING ON RECENT | | | MRI. PER SRU GUIDELINES, FOLLOW-UP PELVIC MRI AND/OR GYNECOLOGIC | | | CONSULTATION SHOULD BE CONSIDERED. AT MINIMUM, RECOMMEND FOLLOW-UP | | | PELVIC ULTRASOUND IN APPROXIMATELY SIX MONTHS TO EVALUATE FOR | | | STABILITY. 2. OTHERWISE UNREMARKABLE PELVIC ULTRASOUND. | | | Dictated and Signed by: Toy Pak MD Electronically signed: | | | 04/30/2015 4:35 PM | | + + + + + | Procedure Note | + + | Silas, Rad Results In - 04/30/2015 4:39 PM PDT TRANSABDOMINAL AND TRANSVAGINAL PELVIC | | ULTRASOUND 04/30/2015 3:01 PMCLINICAL HISTORY: large collection of fluid in the pelvis on | | recent kneeprosthesis planning MRICOMPARISON: Knee prosthesis planning MR images | | April 27TRANSABDOMINAL FINDINGS: The uterus measures approximately 5.3 x 2.0 x 3.8 m | | andis grossly unremarkable. A large, anechoic appearing fluid collection is notedalong | | the left posterior aspect of the uterus, and accounts for the the findingon comparison | | MRI. A right ovary containing tiny cysts is suggested. No freepelvic fluid is | | evident.TRANSVAGINAL FINDINGS: Transvaginal scanning is performed to better | | characterizethe uterus and adnexa. No myometrial abnormality is evident. The | | endometriummeasures 3 mm in width. No endometrial fluid collection is apparent. The | | rightovary measures 2.6 x 1.9 x 2.5 cm and the left ovary measures 7.2 x 6.0 x 6.4cm. | | Several tiny, fairly anechoic appearing cysts are noted within the rightovary and | | measure up to 8 mm in maximal dimension. There is no suspiciousvascularity on Doppler | | interrogation. A large anechoic cyst measuring up to 7.2x 0.0 x 6.4 cm is noted in the | | left adnexal region, and demonstrates a solitarythin peripheral septation without | | internal vascularity on Doppler interrogation.Normal stromal waveforms are present in | | the right ovary on duplex interrogation. Interrogation of the margin of the left adnexal | | cyst demonstrates waveformstypical for ovarian tissue as well. No separate left ovary | | is evident. No freepelvic fluid is evident.IMPRESSION -1. 7.2 CM ANECHOIC, MINIMALLY | | SEPTATED CYST IN THE LEFT ADNEXA, LIKELY OVARIANIN ORIGIN AND ACCOUNTING FOR THE FINDING | | ON RECENT MRI. PER [facility]U GUIDELINES,FOLLOW-UP PELVIC MRI AND/OR GYNECOLOGIC CONSULTATION | | SHOULD BE CONSIDERED. ATMINIMUM, RECOMMEND FOLLOW-UP PELVIC ULTRASOUND IN | | APPROXIMATELY SIX MONTHS TOEVALUATE FOR STABILITY.2. OTHERWISE UNREMARKABLE PELVIC | | ULTRASOUND.Dictated and Signed by: Toy Pak MD Electronically signed: 04/30/2015 | | 4:35 PM | |pelvic fluid is evident. | | | |IMPRESSION - | | | |1. 7.2 CM ANECHOIC, MINIMALLY SEPTATED CYST IN THE LEFT ADNEXA, LIKELY OVARIAN | |IN ORIGIN AND ACCOUNTING FOR THE FINDING ON RECENT MRI. PER SRU GUIDELINES, | |FOLLOW-UP PELVIC MRI AND/OR GYNECOLOGIC CONSULTATION SHOULD BE CONSIDERED. AT | |MINIMUM, RECOMMEND FOLLOW-UP PELVIC ULTRASOUND IN APPROXIMATELY SIX MONTHS TO | |EVALUATE FOR STABILITY. | | | |2. OTHERWISE UNREMARKABLE PELVIC ULTRASOUND. | | | |Dictated and Signed by: Toy Pak MD | | Electronically signed: 04/30/2015 4:35 PM | + + + + + + + | Performing | Address | City/State/Zipcode | Phone Number | | Organization | | | | + + + + + | [facility] | [address] | [place], [place] | [phone] | | [facility] | | [address] | | | - IMAGING | | | | + + + + + documented in this encounter Visit Diagnoses + + | Diagnosis | + + | Pelvic cyst - Primary Other specified symptom associated with female genital organs | + + documented in this encounter"
--- OUTSIDE RECORDS SUMMARY | ~2019-07-02 | XMS | Encounter Summary ---
Demographics + + + | Address | [address] | | | [place] [address] | + + + | Home Phone | | + + + | Preferred Language | Unknown | + + + | Marital Status | | + + + | Tenriism Affiliation | 1076 | + + + | Race | Unknown | + + + | Ethnic Group | Unknown | + + + Author + + + | Author | [facility] | | | and Primo | + + + | Organization | [facility] | | | and [...] [place], [place] | | | | | [address] | | + + + + + | Dalton Fernandez | ECON | Unknown | | + + + + + | Juana Fernandez | ECON | Unknown | | + + + + + Care Team Providers + +------+ + | Care Office Executive Name | Role | Phone | + [...] + + | Closed | Specialty | Orthopedic | Diagnoses | Douglas Nuñez | Shahriar, | | | Services | Surgery | Left knee | MD Jason [address] | Ramin Gonzalez MD | | | Required | | pain | [address] | [address] | | | | | | [place], | [facility] | | | | | | [place] [address] | [facility] [place] | | | | | | Phone: | [phone] Phone: | | | | | | [phone] | [phone] | | | | | | Fax: | Fax: | | | | | | [phone] | [phone] | +--------+ + + + + + Reason for Visit + + + | Reason | Comments | + + + | Follow-up | Post op | + + + Encounter Details +--------+---------+ + + + | Date | Type | Department | Care Team | Description | +--------+---------+ + + + | 09/18/ | Office | [facility] | Douglas Nuñez MD | S/P lumbar fusion | | 2015 | Visit | NEUROSURGERY [address] | [address] | (Primary Dx) | | | | [address] | [place] [address] | | | | | [place] | [phone] | | | | | [address] | | | | | | [phone] | | | +--------+---------+ + + + [...] + + + | Blood Pressure | 110/72 | 09/18/2014 12:55 PM | | | | | PST | | + + + + + | Pulse | 106 | 09/18/2014 12:55 PM | | | | | PST | | + + + + + | Temperature | - | - | | + + + + + | Respiratory Rate | 18 | 09/18/2014 12:55 PM | | | | | PST | | + + + + + | Oxygen Saturation | - | - | | + + + + + | Inhaled Oxygen | - | - | | | Concentration | | | | + + + + + | Weight | 75.3 kg (166 lb) | 09/18/2014 12:55 PM | | | | | PST | | + + + + + | Height | 154.9 cm (5' 1") | 09/18/2014 12:55 PM | | | | | PST | | + + + + + | Body Mass Index | 31.37 | 09/18/2014 12:55 PM | | | | | PST | | + + + + + documented in this encounter Progress Notes Douglas Nuñez MD - 09/18/2014 1:23 PM PSTFormatting of this note might be different from t dontae original. Douglas Nuñez MD [address] [place] [address], [facility] [address] [place], [place] [address] FAX: NEUROSURGERY FOLLOW-UP CHIEF COMPLAINT: Chief Complaint Patient presents with Follow-up Post op HISTORY OF PRESENT ILLNESS: The patient is a 63 y.o. female that had a lumbar fusion by me around 3 months ago . She returns and overall is doing well. The patient complains of azeem e back pain and leg pain but is markedly improved. She can now walk over 2.5 miles where be fore she could only walk 5 minutes or less. Her knees slow her down more than anything else now. PAST MEDICAL HISTORY: Past Medical History Diagnosis Date Gastric reflux Migraine PAST SURGICAL HISTORY: Past Surgical History Procedure Laterality Date Rotator cuff right shoulder December 25, 2013 Knee cartilage surgery right Lumbar laminectomy 06/17/2014 L4-5, L5-S1 TLIF, LEFT SIDED APPROACH; Laterality: Left; Surgeon: Douglas Nuñez MD; Loc ation: [facility] CURRENT MEDICATIONS: Current Outpatient Prescriptions Medication Sig [...] Pain in Knees Take 3am and 2pm No current facility-administered medications for this visit. ALLERGIES: Allergies Allergen Reactions Onion Shortness Of [...] Onset Heart defect Father Lung cancer Mother INTERIM PHYSICAL EXAMINATION: Blood pressure 110/72, pulse 106, resp. rate 18, height 1.549 m (5' 1"), weight 75.297 kg ( 166 lb). Body mass index is 31.38 kg/(m^2). GENERAL: Mike Fernandez is in no acute distress with unlabored respirations. SPINE: The patient s incisions are healing well without drainage, significant erythema, o r discharge EXTREMITIES: No lower extremity edema. NEUROLOGICAL EXAMINATION: MENTAL STATUS: The patient is awake, alert, and oriented. She follows simple and complex commands MOTOR EXAM: Motor strength is full. RADIOGRAPHIC REVIEW: The patient s postoperative x-rays show stable instrumentation and alignment and were rev iewed with the patient today. There have been no interval changes since the immediate posto perative films. Complete fusion has not yet occurred, but this is normal and would not be e xpected at this time. ASSESSMENT: Encounter Diagnosis Name Primary? S/P lumbar fusion Yes Past Medical History Diagnosis Date Gastric reflux Migraine PLAN: Overall, the patient is doing very well. I was pleased to see at least some further improv ement and expect more improvement with time. This was discussed with the patient today. I have increased the patient s activities further, and I would like the patient to continue to advance with activities as tolerated and as directed. She asked for a referral to evaluate her knees. I placed one for her. The patient will follow-up with me in around 6 months for re-evaluation. ELECTRONICALLY SIGNED BY: Douglas Nuñez MD, 09/18/2014 13:25 documented in this encjanell donalder Plan of Treatment +--------+---------+ + + + | Date | Type | Specialty | Care Team | Description | +--------+---------+ + + + | 07/22/ | Office | Orthopedic Surgery | Ramin Bess | | | 2019 | Visit | | MD Lisa [address] [place] [address] | | | | | | [place] | | | | | | [phone] | | | | | | | | +--------+---------+ + + + documented as of this encounter Procedures + +--------+ + + + | Procedure Name | Priori | Date/Time | Associated Diagnosis | Comments | | | ty | | | | + +--------+ + + + | AMB REFERRAL TO [facility] | Routin | 12/08/2014 | S/P lumbar fusion | | | [facility] | e | | | | | SURGERY | | | | | + +--------+ + + + documented in this encounter Results XR Lumbar Spine 2 or 3 Vw (04/06/2015 11:31 AM PDT) + + | Specimen | + + | | + + + + + | Narrative | Performed At | + + + | EXAM: XR LUMBAR SPINE 2 OR 3 VW dated 04/06/2015 11:15 AM | [facility] | | HISTORY:Postop COMPARISON: Compared to lumbar spine x-rays dating | . [facility] | | to June 18, 2014. FINDINGS:Frontal and lateral views of the [facility] | | lumbar spine. Posterior and interbody fusion changes from L3 | - IMAGING | | through L5. The hardware remains in tact. No change in | | | positioning of the interbody graft markers. No change in spinal | | | alignment. No interval compression deformities. Stable severe | | | compression deformity involving T12 and more mild involving T11. | | | Diffuse demineralization. IMPRESSION - No evidence for an | | | interval complication. Dictated and Signed by: Cecilio Weir MD | | | Electronically signed: 04/06/2015 2:27 PM | | + + + + + | Procedure Note | + + | Silas, Rad Results In - 04/06/2015 2:30 PM PDT EXAM: XR LUMBAR SPINE 2 OR 3 VW dated | | 04/06/2015 11:15 AMHISTORY:PostopCOMPARISON: Compared to lumbar spine x-rays dating to | | June 18, 2014.FINDINGS:Frontal and lateral views of the lumbar spine. Posterior and | | interbodyfusion changes from L3 through L5. The hardware remains in tact. No change | | inpositioning of the interbody graft markers. No change in spinal alignment. | | Nointerval compression deformities. Stable severe compression deformity [id number] | | and more mild involving T11. Diffuse demineralization.IMPRESSION -No evidence for an | | interval complication.Dictated and Signed by: Cecilio Weir MD Electronically | | signed: 04/06/2015 2:27 PM | |interval compression deformities. Stable severe compression deformity involving | |T12 and more mild involving T11. Diffuse demineralization. | | | |IMPRESSION - | | | |No evidence for an interval complication. | | | |Dictated and Signed by: Cecilio Weir MD | | Electronically signed: 04/06/2015 2:27 PM | + + + + + + + | Performing | Address | City/State/[facility] | Phone Number | | Organization | | | | + + + + + | [facility] | [address] | [place] | [phone] | | [facility] | | [address] | | | - IMAGING | | | | + + + + + documented in this encounter Visit Diagnoses + + | Diagnosis | + + | S/P lumbar fusion - Primary Arthrodesis status | + + documented in this encounter
--- OUTSIDE RECORDS SUMMARY | ~2019-07-02 | XMS | Encounter Summary ---
Demographics + + + | Address | [address] | | | [place] [address] | + + + | Home Phone | | + + + | Preferred Language | Unknown | + + + | Marital Status | | + + + | Druze Affiliation | 1076 | + + + | Race | Unknown | + + + | Ethnic Group | Unknown | + + + Author + + + | Author | [facility] | | | and Primo | + + + | Organization | [facility] | | [...] [place], [place] | | | | | [address] | | + + + + + | Dalton Fernandez | ECON | Unknown | | + + + + + | Juana Fernandez | ECON | Unknown | | + + + + + Care Team Providers + +------+ + | Care Composition Teacher Name | Role | Phone | + +------+ + | Dutch Rodriguez DO | PCP | | + +------+ + Encounter Details +--------+ + + + + | Date | Type | Department | Care Team | Description | +--------+ + + + + | 12/26/ | Hospital | [facility] | Ramin Bess | Closed left | | 2017 | Encounter | [facility] | MD Lisa [address] [facility] | subtrochanteric | | | | [address] | [place] | femur fracture, | | | | [place] | [address] | initial encounter | | | | [address] | | ([facility]) | | | | [phone] | | | +--------+ + + + [...] tablets by | 120 | 0 | 11/02/19 | | | (TYLENOL) 325 mg | [...] + + + +---------+ + + | raNITIdine | | | 0 | 11/08/19 | | | (ZANTAC) 150 mg | | | | 17 | | | tablet | | | [...] [place] | | | | | | [address] | | | | | | | | +--------+---------+ + + + documented as of this encounter Procedures + +--------+ + + + | Procedure Name | Priori | Date/Time | Associated Diagnosis | Comments | | | ty | | | | + +--------+ + + + | XR KNEE LEFT 1 - 2 | Routin | 12/26/2016 | Closed left | Results for this | | VW | e | 11:21 AM | subtrochanteric | procedure are in the | | | | PDT | femur fracture, | results section. | | | | | initial encounter | | | | | | (HCC) | | + +--------+ + + + documented in this encounter Results XR Knee Left 1 - 2 Vw (12/26/2016 11:21 AM PDT) + + | Specimen | + + | | + + + + + | Narrative | Performed At | + + + | XR KNEE LEFT 1 - 2 VW 12/26/2016 11:21 AM HISTORY: F/U LEFT | [facility] | | SUBTROCHANTERIC FEMUR FRACTURE. COMPARISON: 10/22/2016 | [facility] | | FINDINGS: Interval progressive, but incomplete bridging bone and | [facility]ENTER | | callus formation involving the comminuted distal left femur fracture | - IMAGING | | status post retrograde femoral intramedullary doigo with distal and | | | proximal [...] + | Silas, Rad Results In - 12/26/2016 11:46 AM PDT [...] ST[address] | [address] | [place] | [phone] | | [facility] | | [address] | | | - IMAGING | | | | + + + + + documented in this encounter Visit Diagnoses + + | Diagnosis | + + | Closed left subtrochanteric femur fracture, initial encounter (HCC) | + + documented in this encounter"
--- OUTSIDE RECORDS SUMMARY | ~2019-07-02 | XMS | Encounter Summary ---
Demographics + + + | Address | [address] | | | [place] [address] | + + + | Home Phone | | + + + | Preferred Language | Unknown | + + + | Marital Status | | + + + | Advent Affiliation | 1076 | + + + | Race | Unknown | + + + | Ethnic Group | Unknown | + + + Author + + + | Author | [facility] | | | and Primo | + + + | Organization | [facility] | | | and [place] [...] [place], [place] | | | | | [address] | | + + + + + | Dalton Fernandez | ECON | Unknown | | + + + + + | Juana Fernandez | ECON | Unknown | | + + + + + Care Team Providers + +------+ + | Care Hull Sorter Name | Role | Phone | + +------+ + | Dutch Rodriguez DO | PCP | | + +------+ + Encounter Details +--------+ + + + + | Date | Type | Department | Care Team | Description | +--------+ + + + + | 06/08/ | Orders Only | [facility] [place] | Nino Hurst | S/P lumbar fusion | | 2013 | | NEUROSURGERY [address] | [address] | (Primary Dx) | | | | [address] | [address] | | | | | [place], [place] | [place], [place] | | | | | [address] | [address] | | | | | [phone] | | | +--------+ + + + [...] + | Yes | | | Occasionally | + + +---------+ + + + [...] 2019 | Visit | | MD Lisa [address] [place] [address] | | | | | | [place] | | | | | | [address] | | | | | | | | +--------+---------+ + + + documented as of this encounter Results XR Lumbar Spine 2 or 3 Vw (07/22/2014 11:48 AM PST) + + | Specimen | + + | | + + + + + | Narrative | Performed At | + + + | TWO VIEWS LUMBAR SPINE 07/22/2014 11:48 AM CLINICAL HISTORY: | MISCELANIOUS | | Postop COMPARISON: LUMBAR RADIOGRAPHS JUNE 18, 2014 AND | LAB | | MULTIPLE PREVIOUS RADIOGRAPHS, LUMBAR MRI DECEMBER 03, 2013 | | | FINDINGS: Five non rib-bearing, lumbar type vertebrae are visible. | | | Interbody and posterior joesph and pedicle screw fusion hardware again | | | extends from L3 through L5, and appears intact and satisfactory in | | | position and alignment. There is similar mild anterolisthesis at | | | L3-4. Moderate to severe compression deformity of the T12 vertebral | | | body, buckling of the posterior vertebral body cortex and mild | | | retrolisthesis at T12-L1 persist unchanged. Mild compression | | | deformity of the superior T9 and T11 vertebral endplates is again | | | visible as well. Lumbar vertebral height is maintained. | | | Generalized osteopenia is suggested. The sacroiliac joints and | | | imaged sacrum, bony pelvis and lower ribs are unremarkable. There | | | is moderate stool within the imaged colon. IMPRESSION - 1. | | | STABLE, SATISFACTORY CHANGES OF INTERBODY AND POSTERIOR JOESPH AND | | | PEDICLE SCREW FUSION EXTENDING FROM L3 THROUGH L5 WITH STABLE MILD | | | ANTEROLISTHESIS AT L3-4. 2. OSTEOPENIA AND STABLE LOWER | | | THORACIC COMPRESSION FRACTURES. 3. COLONIC STOOL RETENTION. | | | Dictated and Signed by: Toy Pak MD Electronically signed: | | | 07/22/2014 5:26 PM | | + + + + + | Procedure Note | + + | Silas, Rad Results In - 07/22/2014 5:29 PM PST TWO VIEWS LUMBAR SPINE 07/22/2014 11:48 | | AMCLINICAL HISTORY: PostopCOMPARISON: LUMBAR RADIOGRAPHS JUNE 18, 2014 AND MULTIPLE | | PREVIOUSRADIOGRAPHS, LUMBAR MRI DECEMBER 03, 2013FINDINGS: Five non rib-bearing, lumbar | | type vertebrae are visible. Interbody andposterior joesph and pedicle screw fusion hardware | | again extends from L3 throughL5, and appears intact and satisfactory in position and | | alignment. There issimilar mild anterolisthesis at L3-4. Moderate to severe | | compression deformityof the T12 vertebral body, buckling of the posterior vertebral body | | cortex andmild retrolisthesis at T12-L1 persist unchanged. Mild compression deformity | | ofthe superior T9 and T11 vertebral endplates is again visible as well. Lumbarvertebral | | height is maintained. Generalized osteopenia is suggested. Thesacroiliac joints and | | imaged sacrum, bony pelvis and lower ribs areunremarkable. There is moderate stool | | within the imaged colon.IMPRESSION -1. STABLE, SATISFACTORY CHANGES OF INTERBODY AND | | POSTERIOR JOESPH AND PEDICLESCREW FUSION EXTENDING FROM L3 THROUGH L5 WITH STABLE MILD | | ANTEROLISTHESIS ATL3-4.2. OSTEOPENIA AND STABLE LOWER THORACIC COMPRESSION FRACTURES.3. | | COLONIC STOOL RETENTION.Dictated and Signed by: Toy Pak MD Electronically | | signed: 07/22/2014 5:26 PM | |unremarkable. There is moderate stool within the imaged colon. | | | |IMPRESSION - | | | |1. STABLE, SATISFACTORY CHANGES OF INTERBODY AND POSTERIOR JOESPH AND PEDICLE | |SCREW FUSION EXTENDING FROM L3 THROUGH L5 WITH STABLE MILD ANTEROLISTHESIS AT | |L3-4. | | | |2. OSTEOPENIA AND STABLE LOWER THORACIC COMPRESSION FRACTURES. | | | |3. COLONIC STOOL RETENTION. | | | |Dictated and Signed by: Toy Pak MD | | Electronically signed: 07/22/2014 5:26 PM | + + + +---------+ + + | Performing | Address | City/State/Zipcode | Phone Number | | Organization | | | | + +---------+ + + | [facility] | | | [phone] | + +---------+ + + | [facility] | | | [phone] | + +---------+ + + documented in this encounter Visit Diagnoses + + | Diagnosis | + + | S/P lumbar fusion - Primary Arthrodesis status | + + documented in this encounter"
--- OUTSIDE RECORDS SUMMARY | ~2019-07-02 | XMS | Encounter Summary ---
Demographics + + + | Address | [address] | | | [place] [address] | + + + | Home Phone | | + + + | Preferred Language | Unknown | + + + | Marital Status | | + + + | Episcopal Affiliation | 1076 | + + + | Race | Unknown | + + + | Ethnic Group | Unknown | + + + Author + + + | Author | [facility] | | | and Primo | + + + | Organization | [facility] | | | and [...] [place], [place] | | | | | [address] | | + + + + + | Dalton Fernandez | ECON | Unknown | | + + + + + | Juana Fernandez | ECON | Unknown | | + + + + + Care Team Providers + +------+ + | Care Superintendent Job Name | Role | Phone | + +------+ + | Dutch Rodriguez DO | PCP | | + +------+ + Encounter Details +--------+ + + + + | Date | Type | Department | Care Team | Description | +--------+ + + + + | 03/13/ | Hospital | [facility] | Douglas Nuñez MD | Back pain | | 2013 | Encounter | MED CTR XRAY [address] | [address] | | | | | [place] | [place] [address] | | | | | [place] [address] | [phone] | | | | | [phone] | | | +--------+ + + + [...] at Time of Discharge + + + +---------+--------+ + | Medication | Sig | Dispensed | Refills | Start | End Date | | | | | | Date | | + + + +---------+--------+ + | b complex vitamins | Take 1 tablet by | | 0 | | | | tablet | mouth Daily. Liquid | | | | | | | B Complex | | | | | + + + +---------+--------+ + | Calcium Carbonate | Take by mouth in | | 0 | | | | (CALCIUM 600 PO) | the morning and in | | | | | | | the evening. | | | | | + + + +---------+--------+ + | | Place 1 drop into | | 0 | | | | Carboxymethylcellulo | both eyes as needed | | | | | | se Sodium (REFRESH | (for dry eyes). | | | | | | PLUS OP) | | | | | | + + + +---------+--------+ + | cholecalciferol | Take 1,000 Units by | | 0 | | | | (VITAMIN D-3) 2000 | mouth Daily. | | | | | | UNITS TABS | | | | | | + + + +---------+--------+ + | CRANBERRY FRUIT PO | Take 200 mg by mouth | | 0 | | | | | in the morning and | | | | | | | in the evening. | | | | | + + + +---------+--------+ + | Loratadine | Take 10 mg by mouth | | 0 | | | | (CLARITIN PO) | in the morning and | | | | | | | in the evening. | | | | | + + + +---------+--------+ + | minocycline | Take 50 mg by mouth | | 0 | | | | (DYNACIN) 50 MG | every morning. | | | | | | tablet | | | | | | + + + +---------+--------+ + | omeprazole | Take 20 mg by mouth | | 0 | | | | (PRILOSEC) 20 mg | nightly as needed | | | | | | capsule | (acid reflux). | | | | | + + + +---------+--------+ + | Pediatric Multiple | Take 1 tablet by | | 0 | | | | Vitamins | mouth every morning. | | | | | | (FLINTSTONES | | | | | | | MULTIVITAMIN PO) | | | | | | + + + +---------+--------+ + | pilocarpine | Take 5 mg by mouth 4 | | 0 | | | | (SALAGEN) 5 mg | times daily. | | | | | | tablet | | | | | | + + + +---------+--------+ + | Artificial Tear | Apply 1 drop to eye | | 0 | | | | Insert (LACRISERT | nightly. | | | | 6 | | OP) | | | | | | + + + +---------+--------+ + | ASPIRIN | by Does not apply | | 0 | | | | | route as needed. | | | | 4 | + + + +---------+--------+ + | CycloSPORINE | Apply 1 drop to eye | | 0 | | | | (RESTASIS OP) | nightly. | | | | 6 | + + + +---------+--------+ + | EPINEPHrine | Inject 0.3 mg into | | 0 | | | | (EPIPEN) 0.3 mg/0.3 | the muscle as | | | | 5 | | mL injection | needed. | | | | | + + + +---------+--------+ + | fish oil 1,000 mg | Take 1,000 mg by | | 0 | | | | capsule | mouth 2 times daily. | | | | 6 | + + + +---------+--------+ + | ibuprofen (ADVIL, | Take 200 mg by mouth | | 0 | | 11/14/201 | | MOTRIN) 200 mg | as needed. | | | | 4 | | tablet | | | | | | + + + +---------+--------+ + | IRON PO | Take 325 mg by mouth | | 0 | | | | | in the morning and | | | | 7 | | | in the evening. | | | | | + + + +---------+--------+ + | UNABLE TO FIND | Med Name: Black | | 0 | | | | | Current Seed Oil for | | | | 5 | | | Joint Pain in | | | | | | | KneesTake 3am and | | | | | | | 2pm | | | | | + + + +---------+--------+ + documented as of this encounter Plan of Treatment +--------+---------+ + + + | Date | Type | Specialty | Care Team | Description | +--------+---------+ + + + | 07/22/ | Office | Orthopedic Surgery | Ramin Bess | | | 2018 | [place] | | MD Swathi Gonzalez | | | | | | [place] | | | | | | [address] | | | | | | | | +--------+---------+ + + + documented as of this encounter Procedures + +--------+ + + + | Procedure Name | Priori | Date/Time | Associated Diagnosis | Comments | | | ty | | | | + +--------+ + + + | XR LUMBAR SPINE 2 OR | Routin | 03/13/2014 | Back pain | Results for this | | 3 VW | e | 9:59 AM | | procedure are in the | | | | PDT | | results section. | + +--------+ + + + documented in this encounter Results XR Lumbar Spine 2 or 3 Vw (03/13/2014 9:59 AM PDT) + + | Specimen | + + | | + + + + + | Narrative | Performed At | + + + | EIGHT VIEW SCOLIOSIS SERIES 03/13/2014 9:59 AM CLINICAL HISTORY: | MISCELANIOUS | | back pain COMPARISON: LUMBAR MRI DECEMBER 03, 2013 FROM [facility] | LAB | | HOSPITAL FINDINGS: [...] painCOMPARISON: LUMBAR MRI DECEMBER 03, 2013 FROM [facility] | | HOSPITALFINDINGS: AP, lateral bending [...] + + | Performing | Address | City/State[facility] | Phone Number | | Organization | | | | + +---------+ + + | [facility] | | | [phone] | + +---------+ + + | [facility] | | | [phone] | + +---------+ + + documented in this encounter Visit Diagnoses + + | Diagnosis | + + | Back pain Backache, unspecified | + + documented in this encounter"
--- OUTSIDE RECORDS SUMMARY | ~2019-07-02 | XMS | Encounter Summary ---
Demographics + + + | Address | [address] | | | [place] [address] | + + + | Home Phone | | + + + | Preferred Language | Unknown | + + + | Marital Status | | + + + | Restoration Affiliation | 1076 | + + + | Race | Unknown | + + + | Ethnic Group | Unknown | + + + Author + + + | Author | [facility] | | | and Primo | + + + | Organization | [facility] | | | [...] [place], [place] | | | | | [address] | | + + + + + | Dalton Fernandez | ECON | Unknown | | + + + + + | Juana Fernandez | ECON | Unknown | | + + + + + Care Team Providers + +------+ + | Care Commercial Energy Rater Name | Role | Phone | + +------+ + | Dutch Rodriguez DO | PCP | | + +------+ + Reason for Visit + + + | Reason | Comments | + + + | New Medication | | | Request | | + + + Encounter Details +--------+ + + + + | Date | Type | Department | Care Team | Description | +--------+ + + + + | 02/18/ | Telephone | [facility] [place] | Ramin Bess | New Medication | | 2018 | | ORTHOPEDIC SURGERY | MD Lisa [address] [facility] | Request | | | | [address] [facility] | [place] | | | | | [place] | [address] | | | | | [address] | | | | | | [phone] | | | +--------+ + + + [...] [place] | | | | | | [id number] | | | | | | | | +--------+---------+ + + + documented as of this encounter Visit Diagnoses Not on filedocumented in this encounter"
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
--- OUTSIDE RECORDS SUMMARY | ~2019-07-02 | XMS | Encounter Summary ---
Demographics + + + | Address | [address] | | | [place] [address] | + + + | Home Phone | | + + + | Preferred Language | Unknown | + + + | Marital Status | | + + + | Faith Affiliation | 1076 | + + + | Race | Unknown | + + + | Ethnic Group | Unknown | + + + Author + + + | Author | [facility] | | | and Primo | + + + | Organization | [facility] | | | and [...] [place], [place] | | | | | [address] | | + + + + + | Dalton Fernandez | ECON | Unknown | | + + + + + | Juana Fernandez | ECON | Unknown | | + + + + + Care Team Providers + +------+ + | Care Sheet Metal Layout Worker Name | Role | Phone | + +------+ + | Dutch Rodriguez DO | PCP | | + +------+ + Encounter Details +--------+ + + + + | Date | Type | Department | Care Team | Description | +--------+ + + + + | 11/28/ | Hospital | [facility] | Ramin Bess | Closed left | | 2017 | Encounter | MED CTR [facility] XRAY | MD Lisa [address] [facility] | subtrochanteric | | | | [address] | [place] | femur fracture, | | | | [place] | [address] | initial encounter | | | | [address] | | ([facility]) | | | | [phone] | | | +--------+ + + + [...] | Visit | | MD Swathi Gonzalez [facility] | | | | | | [place] | | | | | | [address] | | | | | | | | +--------+---------+ + + + documented as of this encounter Procedures + +--------+ + + + | Procedure Name | Priori | Date/Time | Associated Diagnosis | Comments | | | ty | | | | + +--------+ + + + | XR FEMUR LEFT 2+VW | Routin | 11/28/2016 | Closed left | Results for this | | | e | 4:29 PM | subtrochanteric | procedure are in the | | | | PDT | femur fracture, | results section. | | | | | initial encounter | | | | | | (HCC) | | + +--------+ + + + documented in this encounter Results XR Femur Left 2+Vw (11/28/2016 4:29 PM PDT) + + | Specimen | + + | | + + + + + | Narrative | Performed At | + + + | EXAM:XR FEMUR LEFT 2+VW CLINICAL HISTORY: ORIF RETROGRADE IM | [facility] | | [facility] COMPARISON: Outside study dated October 22, 2016. | [facility] | | Intraoperative images October 23, 2016. FINDINGS: 4 views. | MEDICAL CENTER | | There is a retrograde diogo in the right femur. There are distal and | - IMAGING | | proximal locking screws. The fracture is in stable alignment. | | | There is evidence of new bone formation. There is a small | | | residual joint effusion. IMPRESSION - Healing, instrumented | | | periprosthetic fracture in stable alignment. Dictated and Signed | | | by: Cecilio Weir MD Electronically signed: 11/28/2016 4:51 PM | | + + + + + | Procedure Note | + + | Silas, Rad Results In - 11/28/2016 4:54 PM PDT EXAM:XR FEMUR LEFT 2+VW | | | | CLINICAL HISTORY: ORIF RETROGRADE IM RODDING FEMORAL | | | | COMPARISON: Outside study dated October 22, 2016. Intraoperative images October 23, | | 2016. | | | | FINDINGS: 4 views. | | | | There is a retrograde diogo in the right femur. There are distal and proximal | | locking screws. The fracture is in stable alignment. There is evidence of new | | bone formation. There is a small residual joint effusion. | | | | IMPRESSION - | | | | Healing, instrumented periprosthetic fracture in stable alignment. | | | | Dictated and Signed by: Cecilio Weir MD | | Electronically signed: 11/28/2016 4:51 PM | + + + + + + + | Performing | Address | City/State/Zipcode | Phone Number | | Organization | | | | + + + + + | [facility] | [address] | [place], [place] | [phone] | | [facility] | | [address] | | | - IMAGING | | | | + + + + + documented in this encounter Visit Diagnoses + + | Diagnosis | + + | Closed left subtrochanteric femur fracture, initial encounter (HCC) | + + documented in this encounter"
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
--- OUTSIDE RECORDS SUMMARY | ~2019-07-02 | XMS | Encounter Summary ---
Demographics + + + | Address | [address] | | | [place] [address] | + + + | Home Phone | | + + + | Preferred Language | Unknown | + + + | Marital Status | | + + + | Methodist Affiliation | 1076 | + + + | Race | Unknown | + + + | Ethnic Group | Unknown | + + + Author + + + | Author | [facility] | | | and Primo | + + + | Organization | [facility] | | | and [place] | [...] [place], [place] | | | | | [address] | | + + + + + | Dalton Fernandez | ECON | Unknown | | + + + + + | Juana Fernandez | ECON | Unknown | | + + + + + Care Team Providers + +------+ + | Care Bundles Hanger Name | Role | Phone | + +------+ + | Dutch Rodriguez DO | PCP | | + +------+ + Encounter Details +--------+ + + + + | Date | Type | Department | Care Team | Description | +--------+ + + + + | 03/13/ | Hospital | [facility] | Douglas Nuñez MD | Back pain | | 2013 | Encounter | MED CTR XRAY [address] | | | | | [address] [place] | [place] [address] | | | | | [place] [address] | [phone] | | | | | [phone] | | | +--------+ + + + [...] [place] | | | | | | [address] | | | | | | | [...] COMPARISON: LUMBAR MRI DECEMBER 03, [address] [facility] | LAB | | HOSPITAL FINDINGS: AP, [...] painCOMPARISON: LUMBAR MRI DECEMBER 03, [address] [facility] | | HOSPITALFINDINGS: AP, lateral bending and [...] + + | Performing | Address | City/State/[facility] | Phone Number | | Organization | | | | + +---------+ + + | MISCELLANEOUS LAB | | | [phone] | + +---------+ + + | [facility] | | | [phone] | + +---------+ + + documented in this encounter Visit Diagnoses + + | Diagnosis | + + | Back pain Backache, unspecified | + + documented in this encounter"
--- OUTSIDE RECORDS SUMMARY | ~2019-07-02 | XMS | Encounter Summary ---
Demographics + + + | Address | [address] | | | [place] [address] | + + + | Home Phone | | + + + | Preferred Language | Unknown | + + + | Marital Status | | + + + | Mandaeism Affiliation | 1076 | + + + | Race | Unknown | + + + | Ethnic Group | Unknown | + + + Author + + + | Author | [facility] | | | and Primo | + + + | Organization | [facility] | | | and [...] [place], [place] | | | | | [address] | | + + + + + | Dalton Koroma | ECON | Unknown | | + + + + + | Juana Koroma | ECON | Unknown | | + + + + + Care Team Providers + +------+ + | Care Rippler Name | Role | Phone | + [...] + + | 07/27/ | Office | [facility] | Ramin Huggins | S/P orthopedic | | 2015 | Visit | ORTHOPEDIC SURGERY | MD Swathi Gonzalez | surgery, follow-up | | | | [address] [place] | [place] | exam (Primary Dx) | | | | [place] | [address] | | | | | [address] | | | | | | [phone] | | | +--------+---------+ + + + [...] - 07/27/2015 12:51 PM PSTSee soap note [id number].Electronically sign ed by Ramin Huggins MD at 07/27/2015 12:51 PM PSTHendersRamin howell MD - 5 12:51 PM PST [facility] [address] [place] [address] OFFICE NOTE RAMIN HUGGINS MD Patient: MYRIAM KOROMA Admitting: MR #: [id number] LOC: PT TYPE: Adm Date: 07/27/2015 : [...] Transcribed on 07/28/2015 05:25:[address] shahid# [id number] Confirmation #: [id number] cc: DUTCH VALENCIA DO documented in this [...] [place] | | | | | | [address] | | | | | | | | +--------+---------+ + + + documented as of this encounter Visit Diagnoses + + | Diagnosis | + + | S/P orthopedic surgery, follow-up exam - Primary Follow-up examination, following | | other surgery | + + documented in this encounter"
--- OUTSIDE RECORDS SUMMARY | ~2019-07-02 | XMS | Encounter Summary ---
Demographics + + + | Address | [address] | | | [place] [address] | + + + | Home Phone | | + + + | Preferred Language | Unknown | + + + | Marital Status | | + + + | Nondenominational Affiliation | 1076 | + + + | Race | Unknown | + + + | Ethnic Group | Unknown | + + + Author + + + | Author | [facility] | | | and Primo | + + + | Organization | [facility] | | | and [place] | [...] [place], [place] | | | | | [address] | | + + + + + | Dalton Fernandez | ECON | Unknown | | + + + + + | Juana Fernandez | ECON | Unknown | | + + + + + Care Team Providers + +------+ + | Care Carpet Floor Layer Apprentice Name | Role | Phone | + +------+ + | Dutch Rodriguez DO | PCP | | + +------+ + Reason for Visit +--------+ + | Reason | Comments | +--------+ + | Other | | +--------+ + Encounter Details +--------+ + + + + | Date | Type | Department | Care Team | Description | +--------+ + + + + | 09/01/ | Telephone | [facility] | Douglas Nuñez MD | Other | | 2014 | | NEUROSURGERY [address] | [address] | | | | | [address] [facility] [address] | [place] [address] | | | | | [place] | [phone] | | | | | [address] | | | | | | [phone] | | | +--------+ + + + [...]
--- OUTSIDE RECORDS SUMMARY | ~2019-07-02 | XMS | Encounter Summary ---
Demographics + + + | Address | [address] | | | [place] [address] | + + + | Home Phone | | + + + | Preferred Language | Unknown | + + + | Marital Status | | + + + | Mosque Affiliation | 1076 | + + + | Race | Unknown | + + + | Ethnic Group | Unknown | + + + Author + + + | Author | [facility] | | | and Primo | + + + | Organization | [facility] | | | and [place] | [...] [place], [place] | | | | | [address] | | + + + + + | Dalton Fernandez | ECON | Unknown | | + + + + + | Juana Fernandez | ECON | Unknown | | + + + + + Care Team Providers + +------+ + | Care Box Loader Name | Role | Phone | + +------+ + | Dutch Rodriguez DO | PCP | | + +------+ + Reason for Visit + + + | Reason | Comments | + + + | Medication Question | | + + + Encounter Details +--------+ + + + + | Date | Type | Department | Care Team | Description | +--------+ + + + + | 04/17/ | Telephone | [facility] | Zachery Soria | Medication Question | | 2017 | | ORTHOPEDIC SURGERY | [address] | | | | | [address] [facility] | [facility] | | | | | [place] | [place] [address] | | | | | [address] | [phone] | | | | | [phone] | | | +--------+ + + + [...]
--- OUTSIDE RECORDS SUMMARY | ~2019-07-02 | XMS | Encounter Summary ---
Demographics + + + | Address | [address] | | | [place] [address] | + + + | Home Phone | | + + + | Preferred Language | Unknown | + + + | Marital Status | | + + + | Evangelical Affiliation | 1076 | + + + | Race | Unknown | + + + | Ethnic Group | Unknown | + + + Author + + + | Author | [facility] | | | and Primo | + + + | Organization | [facility] | [...] [place], [place] | | | | | [address] | | + + + + + | Dalton Fernandez | ECON | Unknown | | + + + + + | Juana Fernandez | ECON | Unknown | | + + + + + Care Team Providers + +------+ + | Care Anode Crew Supervisor Name | Role | Phone | + +------+ + | Dutch Rodriguez DO | PCP | | + +------+ + Reason for Visit +---------+ + | Reason | Comments | +---------+ + | Post Op | left total knee arthroplasty DOS 02/09/16 | +---------+ + Encounter Details +--------+---------+ + + + | Date | Type | Department | Care Team | Description | +--------+---------+ + + + | 05/09/ | Office | [facility] | Zachrey Soria | Status post total | | 2016 | Visit | ORTHOPEDIC SURGERY | [address] | knee replacement, | | | | [address] [facility] | Josué Young | left (Primary Dx) | | | | [place] | [place] [address] | | | | | [address] | [phone] | | | | | [phone] | | | +--------+---------+ + + + [...] Temperature | 36.4 C (97.5 F) | 05/09/2016 3:30 PM | | | | | PDT [...] + + + + | Weight | 70.3 kg (155 lb) | 05/09/2016 3:30 PM | | | | | PDT | | + + + + + | Height | 162.6 cm (5' 4") | 05/09/2016 3:30 PM | | | | | PDT | | + + + + + | Body Mass Index | 26.61 | 05/09/2016 3:30 PM | | | | | PDT [...] encounter Progress Notes Zachery Soria PA-C - 05/09/2016 4:21 PM PDTFormatting of this note might be differe nt from the original. Name:Ana Fernandez Todays Date: 05/09/2016 Age: 65 y.o. PCP: Dutch Rodriguez DO Chief Complaint Patient presents with Post Op left total knee arthroplasty DOS 02/09/16 SUBJECTIVE: Returns today for postoperative visit following a left total knee arthroplasty was performe d on 02/09/16. She continues with physical therapy at home on an outpatient basis. She is no t taking prescribed or cghc-njy-bjyfdwg pain medication. Pain remains well controlled. Fee ls that range of motion has improved. Current level pain is rated as 0 out of 10 OBJECTIVE: Ambulates without assistance assistance. No abnormalities observed. No offloading is obse rved with ablation today in the exam room. She has full active range of motion of the left knee with flexion and extension proximal is 0 135 degrees. No erythema, induration, swell ing or signs of infection appreciated at the left knee incision site. Imaging/Studies: No studies to review at this time. Filed Vitals: 05/09/16 1530 Temp: 36.4 C (97.5 F) TempSrc: Temporal Height: 1.626 m (5' 4") Weight: 70.308 kg (155 lb) ASSESSMENT/PLAN: 1. Left total knee arthroplasty, status postop A. Patient has progressed quite well following a left total knee arthroplasty that was per formed on 02/09/16. Range of motion is full at this time and pain remains minimal. Recommend ed this time that she return to her normal activities as tolerated on the left knee. I'm qu ite pleased that she recovered well. Follow-up this time will now be on an as-needed basis. B. Patient is advised that if they have any questions, comments or concerns to contact our office. Electronically signed by: Zachery Soria PA-C 05/09/2016 16:21 This note was dictated using the Cloud[employer]onge voice recognition system. Minor errors in grammar may have occurred. documented in t his encounter Plan of Treatment +--------+---------+ + + + | Date | Type | Specialty | Care Team | Description | +--------+---------+ + + + | 07/22/ | Office | Orthopedic Surgery | Ramin Bess | | | 2018 | Visit | | MD Lisa [address] [place] [address] | | | | | | [place] | | | | | | [id number] | | | | | | | | +--------+---------+ + + + documented as of this encounter Visit Diagnoses + + | Diagnosis | + + | Status post total knee replacement, left - Primary | + + documented in this encounter
--- OUTSIDE RECORDS SUMMARY | ~2019-07-02 | XMS | Encounter Summary ---
Demographics + + + | Address | [address] | | | [place] [address] | + + + | Home Phone | | + + + | Preferred Language | Unknown | + + + | Marital Status | | + + + | Mosque Affiliation | 1076 | + + + | Race | Unknown | + + + | Ethnic Group | Unknown | + + + Author + + + | Author | [facility] | | | and Primo | + + + | Organization | [facility] | | | and [...] [place], [place] | | | | | [address] | | + + + + + | Dalton Fernandez | ECON | Unknown | | + + + + + | Juana Fernandez | ECON | Unknown | | + + + + + Care Team Providers + +------+ + | Care Exhibit Artist Name | Role | Phone | + +------+ + | Dutch Rodriguez DO | PCP | | + +------+ + Encounter Details +--------+ + + + + | Date | Type | Department | Care Team | Description | +--------+ + + + + | 09/18/ | Hospital | [facility] | Nino Hurst | Spondylolisthesis of | | 2015 | Encounter | MED CTR XRAY [address] | [address] | lumbar region; | | | | [place] | [address] | Lumbar | | | | [place] [address] | [place], [place] | radiculopathy; S/P | | | | [phone] | [phone] | lumbar fusion | | | | | | | [...] + +---------+ + + | gabapentin | 1 TAB PO QHS X 5 | 90 | 2 | 06/29/20 | | | (NEURONTIN) 300 mg | DAYS, THEN 1 TAB PO | capsule | | 14 | 5 | | capsule | BID X 5 DAYS, THEN 1 | | | | | | | TAP PO TID | | | | | + + [...] [place] | | | | | | [address] | | | | | | | | +--------+---------+ + + + documented as of this encounter Procedures + +--------+ + + + | Procedure Name | Priori | Date/Time | Associated Diagnosis | Comments | | | ty | | | | + +--------+ + + + | XR LUMBAR SPINE 2 OR | Routin | 09/18/2014 | Spondylolisthesis | Results for this | | 3 VW | e | 11:58 AM | of lumbar region | procedure are in the | | | | PST | Lumbar radiculopathy | results section. | | | | | S/P lumbar fusion | | + +--------+ + + + documented in this encounter Results XR Lumbar Spine 2 or 3 Vw (09/18/2014 11:58 AM [facility]) + + | Specimen | + + [...] ST. | [address] | [place], [place] | [phone] | | [facility] | | [address] | | | - IMAGING | | | | + + + + + documented in this encounter Visit Diagnoses + + | Diagnosis | + + | Spondylolisthesis of lumbar region Acquired spondylolisthesis | + + | Lumbar radiculopathy Thoracic or lumbosacral neuritis or radiculitis, unspecified | + + | S/P lumbar fusion Arthrodesis status | + + documented in this encounter"
--- OUTSIDE RECORDS SUMMARY | ~2019-07-02 | XMS | Encounter Summary ---
Demographics + + + | Address | [address] | | | [place] [address] | + + + | Home Phone | | + + + | Preferred Language | Unknown | + + + | Marital Status | | + + + | Sabianism Affiliation | 1076 | + + + | Race | Unknown | + + + | Ethnic Group | Unknown | + + + Author + + + | Author | [facility] | | | and Primo | + + + | Organization | [facility] | | | and [place] [...] [place], [place] | | | | | [address] | | + + + + + | Dalton Fernandez | ECON | Unknown | | + + + + + | Juana Fernandez | ECON | Unknown | | + + + + + Care Team Providers + +------+ + | Care Hoop Maker Helper Machine Name | Role | Phone | + [...] | | | | | | | MS ARTHDSIS | | | | | | [...] Description | +--------+---------+ + + + | 06/17/ | Surgery | [facility] | Douglas Nuñez MD | L4-5, L5-S1 TLIF, | | 2014 | | MED CTR OR INTRA OP | [address] | LEFT SIDED APPROACH | | | | [address] | [place] [address] | | | | | [place] | [phone] | | | | | [address] | | | | | | [phone] | | | +--------+---------+ + + + [...] + + + | Blood Pressure | 100/58 | 06/19/2014 8:00 AM | | | | | PST | | + + + + + | Pulse | 92 | 06/19/2014 8:00 AM | | | | | PST | | + + + + + | Temperature | 36.7 C (98.1 F) | 06/19/2014 8:00 AM | | | | | PST | | + + + + + | Respiratory Rate | 20 | 06/19/2014 8:00 AM | | | | | PST | | + + + + + | Oxygen Saturation | 96% | 06/19/2014 8:00 AM | | | | | PST | | + + + + + | Inhaled Oxygen | - | - | | | Concentration | | | | + + + + + | Weight | 74.8 kg (165 lb) | 06/17/2014 7:00 PM | | | | | PST | | + + + + + | Height | 154.9 cm (5' 1") | 06/17/2014 7:00 PM | | | | | PST | | + + + + + | Body Mass Index | 31.18 | 06/17/2014 7:00 PM | | | | | PST | | + + + + + documented in this encounter Discharge Summaries Douglas Nuñez MD - 06/19/2014 7:28 AM PSTFormatting of this note might be different from t dontae original. [facility] NEUROSURGERY DISCHARGE SUMMARY Patient Name: Mike Fernandez Patient : 1950 PCP: Dutch Rodriguez Date of Admission: 06/17/2014 Date of Discharge: 06/19/2014 Primary Discharge Dx: spondylolisthesis Secondary Discharge Dx(s): Patient Active Problem List Diagnosis Gastric reflux Migraine Spondylolisthesis of lumbar region Lumbar radiculopathy Back pain Procedures Procedure(s): L4-5, L5-S1 TLIF, LEFT SIDED APPROACH Hospital Course: Post op the patient did very well. Working well with PT and OT. Pain controlled and ambul ating well Condition on Discharge: Stable Discharge Medications: Discharge Medications As of 06/19/2014 7:28 New Medications Details cyclobenzaprine 10 mg tablet Take 1 tablet by mouth every 8 hours as needed for Muscle spasms. aka: FLEXERIL HYDROcodone-acetaminophen 5-325 mg per tablet Take 1-2 tablets by mouth every 4 hours as needed for Pain. aka: NORCO lactulose 10 g/15 mL solution Take 30 mLs by mouth Daily as needed for up to 10 days. Unchanged Medications Details aspirin 325 mg tablet Take 325 mg by mouth Daily. B complex vitamins tablet Take 1 tablet by mouth Daily. Liquid B Complex CALCIUM 600 PO Take by mouth in the morning and in the evening. cholecalciferol 2000 UNITS Tabs Take 1,000 Units by mouth Daily. aka: VITAMIN D-3 CLARITIN PO Take by mouth in the morning and in the evening. CRANBERRY FRUIT PO Take 200 mg by mouth in the morning and in the evening. EPINEPHrine 0.3 mg/0.3 mL injection Inject 0.3 mg into the muscle as needed. aka: EPIPEN fish oil 1,000 mg capsule Take 1,000 mg by mouth 2 times daily. FLINTSTONES MULTIVITAMIN PO Take by mouth every morning. IRON PO Take by mouth in the morning and in the evening. LACRISERT OP Apply 1 drop to eye nightly. minocycline 50 MG tablet Take 50 mg by mouth every morning. aka: DYNACIN omeprazole 20 mg capsule Take 20 mg by mouth nightly. aka: priLOSEC pilocarpine 5 mg tablet Take 5 mg by mouth 4 times daily. aka: SALAGEN REFRESH PLUS OP Apply to eye as needed. RESTASIS OP Apply 1 drop to eye nightly. UNABLE TO FIND Med Name: Black Current Seed Oil for Joint Pain in Knees Take 3am and 2pm Discontinued Medications ibuprofen 200 mg tablet aka: ADVIL MOTRIN ; Current Discharge Medication List START taking these medications Dose Details Last Dose Taken cyclobenzaprine (FLEXERIL) 10 mg tablet 10 mg Take 1 tablet by mouth every 8 hours as nee ded for Muscle spasms. Quantity: 90 tablet Refills: 3 Start date: 06/19/14 HYDROcodone-acetaminophen (NORCO) 5-325 mg per tablet 1-2 tablets Take 1-2 tablets by bettina th every 4 hours as needed for Pain. Quantity: 120 tablet Refills: 0 Start date: 06/19/14 lactulose 10 g/15 mL solution 30 mLs Take 30 mLs by mouth Daily as needed for up to 10 da ys. Quantity: 240 mL Refills: 3 Start date: 06/19/14, End date: 06/29/14 CONTINUE these medications which have NOT CHANGED Dose Details Last Dose Taken Artificial Tear Insert (LACRISERT OP) 1 drop Apply 1 drop to eye nightly. aspirin 325 mg tablet 325 mg Take 325 mg by mouth Daily. b complex vitamins tablet 1 tablet Take 1 tablet by mouth Daily. Liquid B Complex Calcium Carbonate (CALCIUM 600 PO) Take by mouth in the morning and in the evening. Carboxymethylcellulose Sodium (REFRESH PLUS OP) Apply to eye as needed. cholecalciferol (VITAMIN D-3) 2000 UNITS TABS 1,000 Units Take 1,000 Units by mouth Daily . CRANBERRY FRUIT PO 200 mg Take 200 mg by mouth in the morning and in the evening. CycloSPORINE (RESTASIS OP) 1 drop Apply 1 drop to eye nightly. EPINEPHrine (EPIPEN) 0.3 mg/0.3 mL injection 0.3 mg Inject 0.3 mg into the muscle as need ed. fish oil 1,000 mg capsule 1,000 mg Take 1,000 mg by mouth 2 times daily. IRON PO Take by mouth in the morning and in the evening. Loratadine (CLARITIN PO) Take by mouth in the morning and in the evening. minocycline (DYNACIN) 50 MG tablet 50 mg Take 50 mg by mouth every morning. omeprazole (PRILOSEC) 20 mg capsule 20 mg Take 20 mg by mouth nightly. Pediatric Multiple Vitamins (FLINTSTONES MULTIVITAMIN PO) Take by mouth every morning. pilocarpine (SALAGEN) 5 mg tablet 5 mg Take 5 mg by mouth 4 times daily. UNABLE TO FIND Med Name: Black Current Seed Oil for Joint Pain in Knees Take 3am and 2pm Follow-Up: In [address] Nuñez. Activity as discussed in detail Electronically signed by: Douglas Nuñez MD 07/28/2014 7:58 documented in this encou nter Medications at Time of Discharge + + [...] documented as of this encounter Progress Notes Marian Greenfield RN - 06/19/2014 2:44 PM PSTAVS and prescription given to patient. Escor treva out via ambulation at patient request. DC'd home with . est, MIREYA Salas - 06/18/2014 2:25 PM PST [facility] PROGRESS NOTE Pt. Name/Age/: Mike Fernandez 63 y.o. 1950 Med. Record Number: [id number] Date of admission: 06/17/2014 Subjective: The patient chart and medications were reviewed in detail and the patient was s een and examined. The patient is doing well post op. No complaints. Ambulating well Objective: Temp: 36.7 C (98.1 F) BP: 107/42 mmHg Pulse: 95 Resp: 18 SpO2: 100 % on Min/Max Temp past 24 hours:Temp Av.3 C (97.4 F) Min: 35.8 C (96.4 F) Max: 3 6.8 C (98.2 F) Intake/Output Summary (Last 24 hours) at 06/18/14 1425 Last data filed at 06/18/14 1333 Gross per 24 hour Intake 5720 ml Output 4964 ml Net 756 ml Wt. Admission: Weight: 74.844 kg (165 lb) Wt. Current: Weight: 74.844 kg (165 lb) Exam: General: A&O Cardiovascular: RRR Respiratory: clear Abdomen: benign Extremities: No edema Neurological: stable Diagnostic studies: Available data and images were reviewed personally. See reports. Signi ficant results and findings are addressed here or in the Assessment and Plan. Assessment and Plan: Sp lumbar fusion Patient Active Problem List Diagnosis Gastric reflux Migraine Spondylolisthesis of lumbar region Lumbar radiculopathy Back pain Plan: Mobilize. Probably home tomorrow if she continues to well Electronically signed by: Nino Hurst, 06/18/2014 14:25 [facility] documented in th is encounter Plan of Treatment +--------+---------+ + + + | Date | Type | Specialty | Care Team | Description | +--------+---------+ + + + | 07/22/ | Office | Orthopedic Surgery | Ramin Bess | | | 2018 | Visit | | MD Swathi Gonzalez | | | | | | [place] | | | | | | [phone] | | | | | | | | +--------+---------+ + + + documented as of this encounter Procedures + +--------+ + + + | Procedure Name | Priori | Date/Time | Associated Diagnosis | Comments | | | ty | | | | + +--------+ + + + | XR LUMBAR SPINE 2 OR | STAT | 06/18/2014 | | Results for this | | 3 VW | | 12:17 PM | | procedure are in the | | | | PST | | results section. | + +--------+ + + + | RESPIRATORY THERAPY | Routin | 06/18/2014 | | | | COMMUNICATION | e | 1:37 AM | | | | | | PST | | | + +--------+ + + + | LAMINECTOMY | | 06/17/2014 | Acquired | | | PLIF/TLIF | | 1:43 PM | spondylolisthesis | | | INSTRUMENTATION | | PST | | | + +--------+ + + + +---+--------+ | | Case | | | Notes | | | | | | Origin | | | al | | | Schedu | | | ler | | | Commen | | | ts/Not | | | es | | | Sent | | | Over | | | 09/11/ | | | 2013 @ | | | | | | 1009:C | | | -ARM, | | | DRILL, | | | | | | MICROS | | | COPE, | | | METRX, | | | AIR | | | KERRIS | | | NS, | | | VOYAGE | | | R, | | | CAPSTO | | | NE, XS | | | BMP, | | | CHIPS | | | 30, | | | JACKSO | | | N AXIS | | | FRAME | | | | | | ESTIMA | | | TREVA | | | TIME: | | | 3 | | | HOURSC | | | hanged | | | Est. | | | Time | | | to 3.5 | | | Hours | | | per | | | Juanit | | | a's | | | Reques | | | t : | | | 05/14/ | | | 2013 @ | | | 1005 | +---+--------+ | | | | | Specia | | | l | | | Needs | | | Jamie | | | | | | (Medtr | | | onic) | | | - | | | Voyage | | | r, | | | Capsto | | | ne | +---+--------+ documented in this encounter Results XR Lumbar Spine 2 or 3 Vw (06/18/2014 12:17 PM PST) + + | Specimen | + + | | + + + + + | Narrative | Performed At | + + + | TWO VIEWS LUMBAR SPINE 06/18/2014 12:17 PM CLINICAL HISTORY: | MISCELANIOUS | | post op COMPARISON: LUMBAR RADIOGRAPHS MARCH 13, 2014, LUMBAR MRI | LAB | | DECEMBER 03, 2013 FINDINGS: Five non rib-bearing, lumbar type | | | vertebrae are visible. Interbody and posterior joesph and pedicle screw | | | fusion hardware now extends from L3 through L5 and appears to be well | | | seated. Previously visible anterolisthesis at L4-5 has resolved, | | | while mild anterolisthesis persists at L3-4. There is stable, | | | chronic moderate to severe compression deformity of the T12 vertebral | | | body, with buckling of the posterior vertebral body cortex. Mild | | | compression deformity of the superior T11 and T9 vertebral bodies is | | | again visible as well. No recent fracture is suspected. | | | Generalized osteopenia is suggested. The sacroiliac joints and | | | imaged sacrum, bony pelvis and lower ribs are unremarkable.. A | | | surgical drain projects in the left dorsal lumbar soft tissues. | | | IMPRESSION - 1. SATISFACTORY APPEARANCE STATUS POST INTERBODY | | | AND POSTERIOR JOESPH AND PEDICLE SCREW FUSION EXTENDING FROM L3 THROUGH | | | L5, WITH RESOLUTION OF PREVIOUSLY VISIBLE ANTEROLISTHESIS AT L4-5. | | | 2. OSTEOPENIA AND CHRONIC LOWER THORACIC COMPRESSION FRACTURES. | | | Dictated and Signed by: Toy Pak MD Electronically signed: | | | 06/18/2014 3:07 PM | | + + + + + | Procedure Note | + + | Silas, Rad Results In - 06/18/2014 3:10 PM PST TWO VIEWS LUMBAR SPINE 06/18/2014 12:17 | | PMCLINICAL HISTORY: post opCOMPARISON: LUMBAR RADIOGRAPHS MARCH 13, 2014, LUMBAR MRI | | DECEMBER 03, 2013FINDINGS: Five non rib-bearing, lumbar type vertebrae are visible. | | Interbody andposterior joesph and pedicle screw fusion hardware now extends from L3 through | | L5and appears to be well seated. Previously visible anterolisthesis at L4-5 | | hasresolved, while mild anterolisthesis persists at L3-4. There is stable, | | chronicmoderate to severe compression deformity of the T12 vertebral body, withbuckling | | of the posterior vertebral body cortex. Mild compression deformity ofthe superior T11 | | and T9 vertebral bodies is again visible as well. No recentfracture is suspected. | | Generalized osteopenia is suggested. The sacroiliacjoints and imaged sacrum, bony | | pelvis and lower ribs are unremarkable.. Asurgical drain projects in the left dorsal | | lumbar soft tissues.IMPRESSION -1. SATISFACTORY APPEARANCE STATUS POST INTERBODY AND | | POSTERIOR JOESPH AND PEDICLESCREW FUSION EXTENDING FROM L3 THROUGH L5, WITH RESOLUTION OF | | PREVIOUSLY VISIBLEANTEROLISTHESIS AT L4-5.2. OSTEOPENIA AND CHRONIC LOWER THORACIC | | COMPRESSION FRACTURES.Dictated and Signed by: Toy Pak MD Electronically signed: | | 06/18/2014 3:07 PM | | | |IMPRESSION - | | | |1. SATISFACTORY APPEARANCE STATUS POST INTERBODY AND POSTERIOR JOESPH AND PEDICLE | |SCREW FUSION EXTENDING FROM L3 THROUGH L5, WITH RESOLUTION OF PREVIOUSLY VISIBLE | |ANTEROLISTHESIS AT L4-5. | | | |2. OSTEOPENIA AND CHRONIC LOWER THORACIC COMPRESSION FRACTURES. | | | |Dictated and Signed by: Toy Pak MD | | Electronically signed: 06/18/2014 3:07 PM | + + + +---------+ + + | Performing | Address | City/State/Zipcode | Phone Number | | Organization | | | | + +---------+ + + | [facility] | | | [phone] | + +---------+ + + | [facility] | | | [phone] | + +---------+ + + documented in this encounter Visit Diagnoses + + | Diagnosis | + + | Acquired spondylolisthesis | + + documented in this encounter Administered Medications + +--------+ +---------+------+ + | Medication Order | MAR | Action | Dose | Rate | Site | | | Action | Date | | | | + +--------+ +---------+------+ + | bacitracin in NS solution PRN, | Given | 06/17/20 | 50,000 | | Surgical | | Starting 06/17/14 at 1454, | | 14 2:54 | Units | | Site | | Intra-op | | PM PST | | | | + +--------+ +---------+------+ + +---+---+ | | | +---+---+ + +-------+ +--------+---+ + | bupivacaine 0.5%-epinephrine | Given | 06/17/20 | 20 mLs | | Surgical | | 1:200,000 0.5-1:443940 % | | 14 2:54 | | | Site | | injection PRN, Starting Wed | | PM PST | | | | | 06/17/14 at 1454, Intra-op | | | | | | + +-------+ +--------+---+ + +---+---+ | | | +---+---+ documented in this encounter
--- OUTSIDE RECORDS SUMMARY | ~2019-07-02 | XMS | Encounter Summary ---
Demographics + + + | Address | [address] | | | [place] [address] | + + + | Home Phone | | + + + | Preferred Language | Unknown | + + + | Marital Status | | + + + | Moravian Affiliation | 1076 | + + + | Race | Unknown | + + + | Ethnic Group | Unknown | + + + Author + + + | Author | [facility] | | | and Primo | + + + | Organization | [facility] | | | and [place] [...] [place], [place] | | | | | [address] | | + + + + + | Dalton Fernandez | ECON | Unknown | | + + + + + | Juana Fernandez | ECON | Unknown | | + + + + + Care Team Providers + +------+ + | Care Patent Paralegal Name | Role | Phone | + [...] + + | 06/10/ | Office | [facility] [place] | Nnio Hurst | Spondylolisthesis of | | 2013 | Visit | NEUR[address]URGERY [address] | [address] | lumbar region | | | | [address] | [address] | (Primary Dx); Lumbar | | | | [place], [place] | [place], [place] | radiculopathy; Back | | | | [address] | [address] | pain | | | | [phone] | | | +--------+---------+ + + + [...] t from the original. Nino GOMES-Heather [address] [facility], [address] [place], [place] [id number] FAX: NEUROSURGERY FOLLOW-UP CHIEF COMPLAINT: Chief Complaint [...] has no apparent deficits with short or snf memory. MOTOR EXAM: (5 IS NORMAL) * Indicates pain limited MUSCLE/ MOVEMENT: RIGHT LEFT Deltoids 5 5 Biceps 5 5 Triceps 5 5 Wrist Flexion 5 5 Wrist Extension 5 5 Median Intrinsics 5 5 Ulnar Intrinsics 5 5 Tie Puller Strength 5 5 Hip Flexion 5 5 [...] 2018 | Visit | | MD Lisa [facility] | | | | | | [place] | | | | | | [id number] | | | | | | | [...]
--- OUTSIDE RECORDS SUMMARY | ~2019-07-02 | XMS | Encounter Summary ---
Demographics + + + | Address | [address] | | | [place] [address] | + + + | Home Phone | | + + + | Preferred Language | Unknown | + + + | Marital Status | | + + + | Baptist Affiliation | 1076 | + + + | Race | Unknown | + + + | Ethnic Group | Unknown | + + + Author + + + | Author | [facility] | | | and Primo | + + + | Organization | [facility] | | | and [place] [...] [place], [place] | | | | | [address] | | + + + + + | Dalton Fernandez | ECON | Unknown | | + + + + + | Juana Fernandez | ECON | Unknown | | + + + + + Care Team Providers + +------+ + | Care Boarder Machine Name | Role | Phone | + +------+ + | Dutch Rodriguez DO | PCP | | + +------+ + Reason for Visit +---------+ + | Reason | Comments | +---------+ + | Post Op | Update | +---------+ + Encounter Details +--------+ + + + + | Date | Type | Department | Care Team | Description | +--------+ + + + + | 06/22/ | Telephone | [facility] [place] | Douglas Nuñez MD | Post Op (Update) | | 2013 | | NEUROSUR[address]ERY [address] | [address] | | | | | [facility] [address] | [place] [address] | | | | | [place] | [phone] | | | | | [address] | | | | | | [phone] | | | +--------+ + + + [...] [place] | | | | | | [address] | | | | | | | | +--------+---------+ + + + documented as of this encounter Visit Diagnoses Not on filedocumented in this encounter"
--- OUTSIDE RECORDS SUMMARY | ~2019-07-02 | XMS | Encounter Summary ---
Demographics + + + | Address | [address] | | | [place] [address] | + + + | Home Phone | | + + + | Preferred Language | Unknown | + + + | Marital Status | | + + + | Islam Affiliation | 1076 | + + + | Race | Unknown | + + + | Ethnic Group | Unknown | + + + Author + + + | Author | [facility] | | | and Primo | + + + | Organization | [facility] | | | and [place] [...] [place], [place] | | | | | [address] | | + + + + + | Dalton Fernandez | ECON | Unknown | | + + + + + | Juana Fernandez | ECON | Unknown | | + + + + + Care Team Providers + +------+ + | Care Instruction Assistant Principal Name | Role | Phone | + +------+ + | Dutch Rodriguez DO | PCP | | + +------+ + Reason for Visit + + + | Reason | Comments | + + + | Follow-up | 9-month post-op | + + + Encounter Details +--------+---------+ + + + | Date | Type | Department | Care Team | Description | +--------+---------+ + + + | 04/06/ | Office | [facility] | Nino Hurst | Spondylolisthesis of | | 2015 | Visit | NEUR[address]UR[address]ERY [address] | [address] | lumbar region | | | | [address] | [address] | (Primary Dx); Lumbar | | | | [place], [place] | [place] [address] | radiculopathy; S/P | | | | [address] | [phone] | lumbar fusion | | | | [phone] | | | +--------+---------+ + + + [...] + + + | Blood Pressure | 98/61 | 04/06/2015 12:57 PM | | | | | PDT | | + + + + + | Pulse | 97 | 04/06/2015 12:57 PM | | | | | PDT | | + + + + + | Temperature | - | - | | + + + + + | Respiratory Rate | 16 | 04/06/2015 12:57 PM | | | | | PDT | | + + + + + | Oxygen Saturation | - | - | | + + + + + | Inhaled Oxygen | - | - | | | Concentration | | | | + + + + + | Weight | 74.8 kg (165 lb) | 04/06/2015 12:57 PM | | | | | PDT | | + + + + + | Height | 154.9 cm (5' 1") | 04/06/2015 12:57 PM | | | | | PDT | | + + + + + | Body Mass Index | 31.18 | 04/06/2015 12:57 PM | | | | | PDT | | + + + + + documented in this encounter Progress Notes Nino Hurst PA - 04/06/2015 1:13 PM PDTFormatting of this note might be differen t from the original. MIREYA Estrella [address] [facility], [address] [place] [address] FAX: NEUROSURGERY FOLLOW-UP CHIEF COMPLAINT: Chief Complaint Patient presents with Follow-up 9-month post-op HISTORY OF PRESENT ILLNESS: The patient is a 64 y.o. female that had a lumbar fusion aroun d 9 months ago. She returns and overall is doing well. The patient complains of occasional pain but is actually has more problems with her knees. She is planning to have knee replac ement in May. Sometime after that she will have the second knee replaced as well. She is very happy with the way she is doing in regards to her back. PAST MEDICAL HISTORY: Past Medical History Diagnosis Date Gastric reflux Migraine Environmental allergies Anemia Arthritis Cataract Osteoporosis PAST SURGICAL HISTORY: Past Surgical History Procedure Laterality Date Rotator cuff repair Right December 25, 2013 Knee cartilage surgery right Lumbar laminectomy 06/17/2014 L4-5, L5-S1 TLIF, LEFT SIDED APPROACH; Laterality: Left; Surgeon: Douglas Nuñez MD; Loc ation: [facility] MAIN OR Colonoscopy Upper gastrointestinal endoscopy Eye surgery CURRENT MEDICATIONS: Current Outpatient Prescriptions Medication Sig [...] in the morning and in the evening. magnesium lactate (MAG-TAB SR) 84 mg TBCR Take 84 mg by mouth 2 times daily. minocycline (DYNACIN) 50 MG tablet Take 50 mg by mouth every morning. omeprazole (PRILOSEC) 20 mg capsule Take 20 mg by mouth nightly. Pediatric Multiple Vitamins (FLINTSTONES MULTIVITAMIN PO) Take by mouth every morning. pilocarpine (SALAGEN) 5 mg tablet Take 5 mg by mouth 4 times daily. Probiotic Product (PROBIOTIC FORMULA) CAPS Take 1 capsule by mouth daily (with breakfas t). UNABLE TO FIND Med Name: Black Current [...] Onset Heart defect Father Lung cancer Mother COPD Mother Osteoporosis Mother Parkinsonism Father Asthma Brother COPD Brother Asthma Son Arthritis Maternal Grandmother Heart disease Maternal Grandfather INTERIM PHYSICAL EXAMINATION: Blood pressure 98/61, pulse 97, resp. rate 16, height 1.549 m (5' 1"), weight 74.844 kg (16 5 lb). Body mass index is 31.19 kg/(m^2). GENERAL: Ana Fernandez is in no acute distress with unlabored respirations. HEENT: HEAD/FACE: Normocephalic and atraumatic. There are no areas of recent trauma. CHEST: Clear to ausculation without crackles or wheeze. HEART: Regular rate and rhythm without murmurs. SPINE: The patient s incisions are healed well. EXTREMITIES: No lower extremity edema. NEUROLOGICAL EXAMINATION: MENTAL STATUS: The patient is awake, alert, and oriented. She follows simple and complex commands MOTOR EXAM: Motor strength is 5/5. . SENSORY EXAM: The sensory examination is unremarkable REFLEXES: Reflexes are unchanged from her preoperative history and physical. RADIOGRAPHIC REVIEW: The patient s postoperative x-rays show stable instrumentation and alignment and were rev iewed with the patient today during the visit. There has been increased arthrodesis since t he patient s last x-ray which was also reviewed for comparison. ASSESSMENT: S/P lumbar fusion for: Encounter Diagnoses Name Primary? Spondylolisthesis of lumbar region Yes Lumbar radiculopathy S/P lumbar fusion Past Medical History Diagnosis Date Gastric reflux Migraine Environmental allergies Anemia Arthritis Cataract Osteoporosis PLAN: Overall, the patient is doing well. I have increased the patient s activities further, and I would like the patient to contin ue to advance with activities as tolerated. I have a permanent restriction of 75 lbs but no other major restrictions at this time. It has been a pleasure caring for this patient to date and hope to see that the patient con tinues to improve over time and can take care of her back long-term. I greatly appreciate t his referral. The patient will follow-up with my clinic PRN ELECTRONICALLY SIGNED BY: MIREYA Estrella, 04/06/2015 13:13 documented in this encounter Plan of Treatment +--------+---------+ + + + | Date | Type | Specialty | Care Team | Description | +--------+---------+ + + + | 07/22/ | Office | Orthopedic Surgery | Ramin Bess | | | 2019 | Visit | | MD Swathi Gonzalez | | | | | | [place] | | | | | | [address] | | | | | | | [...]
--- OUTSIDE RECORDS SUMMARY | ~2019-07-02 | XMS | Encounter Summary ---
Demographics + + + | Address | [address] | | | [place] [address] | + + + | Home Phone | | + + + | Preferred Language | Unknown | + + + | Marital Status | | + + + | Shinto Affiliation | 1076 | + + + | Race | Unknown | + + + | Ethnic Group | Unknown | + + + Author + + + | Author | [facility] | | | and Primo | + + + | Organization | [facility] | | | and [place] [...] [place], [place] | | | | | [address] | | + + + + + | Dalton Koroma | ECON | Unknown | | + + + + + | Juana Koroma | ECON | Unknown | | + + + + + Care Team Providers + +------+ + | Care Audit Clerks Supervisor Name | Role | Phone | + +------+ + | Dutch Valencia DO | PCP | | + +------+ + Encounter Details +--------+---------+ + + + | Date | Type | Department | Care Team | Description | +--------+---------+ + + + | 06/03/ | Office | [facility] | Ramin Huggins | S/P orthopedic | | 2015 | Visit | ORTHOPEDIC SURGERY | MD Lisa [address] [place] [address] | surgery, follow-up | | | | [address] [facility] | [place] | exam (Primary Dx) | | | | [place] | [address] | | | | | [address] | | | | | | [phone] | | | +--------+---------+ + + + [...] encounter Progress Notes Ramin Huggins MD - 06/04/2015 6:46 AM PDTKyle shepherd note [id number].Electronically sign ed by Ramin Huggins MD at 06/04/2015 6:46 AM Ramin Ureña MD - 6:45 AM PDT [facility] ORTHOPEDIC SURGERY [address] [place] [id number] OFFICE NOTE RAMIN HUGGINS MD Patient: ANA KOROMA Admitting: MR #: [id number] LOC: PT TYPE: Adm Date: 06/03/2015 : 1950 Mrs. Koroma returns today for her first postoperative visit from her right total knee joint arthroplasty performed on 05/26/2015, approximately 8 days ago. She has noted progressive swelling and bruising in her right leg pain and has come earlier than scheduled for an ev aluation. She states her pain is well controlled by pain medication. She has not been meme vating her leg during the daytime and has been relatively active with her walker. She michell es numbness or tingling or significant change in pain. EXAMINATION: The patient's right leg is examined. It is definitely swollen from about th e mid thigh down to the foot. The patient has intact sensation and motor function to the r ight foot. She has definite ecchymosis surrounding the ankle and also throughout the poste rior aspect of her right knee. She has a negative Homans sign, and when asked to forcibly dorsiflex her right ankle she only has some discomfort in the region of her Achilles tendo n. The incision is clean and dry and showed no evidence of drainage. ADVICE: It appears that Mrs. Koroma has sustained a moderate to significant amount of swel ling and ecchymosis, but has no evidence of infection or deep venous thrombosis. Today we have suggested that she begin to elevate her right leg intermittently throughout the day. We will have her work on frequent ankle and knee range of motion. We also have arranged t o send her to occupational therapy immediately following her office visit with us prior to her return to [place] for application of Kinesio taping to help with her swelling. We wi ll plan to see her back next 06/08/2015, for staple removal and clinical followup . At this time, I feel that she is doing well in spite of her swelling and hopefully she w ill go on to recover nicely. RAIMN HUGGINS MD Dictated by RAMIN HUGGINS MD 06/04/2015 06:45:21 Transcribed on 06/05/2015 05:40:05 by [facility] job# [id number] Confirmation #: [id number] cc: DUTCH VALENCIA DO documented in this encounter Plan of Treatment +--------+---------+ + + + | Date | Type | Specialty | Care Team | Description | +--------+---------+ + + + | 07/22/ | Office | Orthopedic Surgery | Ramin Huggins | | | 2019 | Visit | | MD Lisa [address] [place] [address] | | | | | | [place] | | | | | | [id number] | | | | | | | | +--------+---------+ + + + documented as of this encounter Visit Diagnoses + + | Diagnosis | + + | S/P orthopedic surgery, follow-up exam - Primary Follow-up examination, following | | other surgery | + + documented in this encounter"
--- OUTSIDE RECORDS SUMMARY | ~2019-07-02 | XMS | Encounter Summary ---
Demographics + + + | Address | [address] | | | [place] [address] | + + + | Home Phone | | + + + | Preferred Language | Unknown | + + + | Marital Status | | + + + | Evangelical Affiliation | 1076 | + + + | Race | Unknown | + + + | Ethnic Group | Unknown | + + + Author + + + | Author | [facility] | | | and Primo | + + + | Organization | [facility] | | | and [place] | [...] [place], [place] | | | | | [address] | | + + + + + | Dalton Fernandez | ECON | Unknown | | + + + + + | Juana Fernandez | ECON | Unknown | | + + + + + Care Team Providers + +------+ + | Care Chocolatier Name | Role | Phone | + +------+ + | Dutch Rodriguez DO | PCP | | + +------+ + Reason for Visit +---------+ + | Reason | Comments | +---------+ + | Allergy | | +---------+ + Encounter Details +--------+ + + + + | Date | Type | Department | Care Team | Description | +--------+ + + + + | 03/28/ | Telephone | [facility] | Ramin Bess | Allergy | | 2015 | | ORTHOPEDIC SURGERY | MD Lisa [address] [facility] | | | | | [address] [facility] | [place], [place] | | | | | [place], [place] | [address] | | | | | [address] | | | | | | [phone] | | | +--------+ + + + [...] 07/22/ | Office | Orthopedic Surgery | Ramni Bess | | | 2018 | Visit | | MD Swathi Gonzalez | | | | | | [place] | | | | | | [address] | | | | | | | | +--------+---------+ + + + documented as of this encounter Visit Diagnoses Not on filedocumented in this encounter"
--- OUTSIDE RECORDS SUMMARY | ~2019-07-02 | XMS | Encounter Summary ---
Demographics + + + | Address | [address] | | | [place] [address] | + + + | Home Phone | | + + + | Preferred Language | Unknown | + + + | Marital Status | | + + + | Buddhism Affiliation | 1076 | + + + | Race | Unknown | + + + | Ethnic Group | Unknown | + + + Author + + + | Author | [facility] | | | and Primo | + + + | Organization | [facility] | | | and [place] [...] [place], [place] | | | | | [address] | | + + + + + | Dalton Fernandez | ECON | Unknown | | + + + + + | Juana Fernandez | ECON | Unknown | | + + + + + Care Team Providers + +------+ + | Care Industrial Health Engineer Name | Role | Phone | + +------+ + | Dutch Rodriguez DO | PCP | | + +------+ + Encounter Details +--------+ + + + + | Date | Type | Department | Care Team | Description | +--------+ + + + + | 12/07/ | Orders Only | [facility] [place] | Ramin Bess | Bilateral knee pain | | 2015 | | ORTHOPEDIC SURGERY | MD Lisa [address] [place] [address] | (Primary Dx) | | | | [address] [facility] | [place] | | | | | [place] | [address] | | | | | [address] | | | | | | [phone] | | | +--------+ + + + [...] [place] | | | | | | [address] | | | | | | | | +--------+---------+ + + + documented as of this encounter Results XR Knee Right 1 - 2 Vw (12/08/2014 2:26 PM PDT) + + | Specimen | + + | | + + + + + | Narrative | Performed At | + + + | XR KNEE RIGHT 1 - 2 VW 12/08/2014 2:26 PM HISTORY: knee pain. | [facility] | | COMPARISON: None. FINDINGS: The right knee shows no acute | [facility] | | findings. There is moderate medial joint space loss. Large | [facility] | | osteophytes are noted of the lateral femoral condyle. There are small | - IMAGING | | osteophytes of the medial compartment and patella. Severe lateral | | | patellofemoral compartment joint space loss is observed. Bone | | | mineralization is normal. There is a small joint effusion. Soft | | | tissues are unremarkable. The left knee demonstrates no acute | | | findings. Mild medial compartment joint space loss is observed. There | | | is severe lateral patellofemoral compartment joint space loss. Bone | | | mineralization is normal. There is a small joint effusion. Soft | | | tissues are unremarkable. IMPRESSION - Degenerative changes of | | | bilateral knees including severe lateral patellofemoral compartment | | | joint space loss. Dictated and Signed by: Martin Pastor MD | | | Electronically signed: 12/08/2014 3:02 PM | | + + + + + | Procedure Note | + + | Silas, Rad Results In - 12/08/2014 3:05 PM PDT XR KNEE RIGHT 1 - 2 VW 12/08/2014 2:26 PM | | | | HISTORY: knee pain. | | | | COMPARISON: None. | | | | FINDINGS: | | The right knee shows no acute findings. There is moderate medial joint space | | loss. Large osteophytes are noted of the lateral femoral condyle. There are | | small osteophytes of the medial compartment and patella. Severe lateral | | patellofemoral compartment joint space loss is observed. Bone mineralization is | | normal. There is a small joint effusion. Soft tissues are unremarkable. | | | | The left knee demonstrates no acute findings. Mild medial compartment joint | | space loss is observed. There is severe lateral patellofemoral compartment joint | | space loss. Bone mineralization is normal. There is a small joint effusion. Soft | | tissues are unremarkable. | | | | IMPRESSION - | | Degenerative changes of bilateral knees including severe lateral patellofemoral | | compartment joint space loss. | | | | Dictated and Signed by: Martin Pastor MD | | Electronically signed: 12/08/2014 3:02 PM | + + + + + + + | Performing | Address | City/State/[facility] | Phone Number | | Organization | | | | + + + + + | [address] | [address] | [place] | [phone] | | [facility] | | [address] | | | - IMAGING | | | | + + + + + XR Knee Left 4 + Vw (12/08/2014 2:26 PM PDT) + + | Specimen | + + | | + + + + + | Narrative | Performed At | + + + | XR KNEE LEFT 4 + VW 12/08/2014 2:26 PM HISTORY: knee pain. | [facility] | | COMPARISON: None. FINDINGS: The right knee shows no acute | [facility] | | findings. There is moderate medial joint space loss. Large | [facility] | | osteophytes are noted of the lateral femoral condyle. There are small | - IMAGING | | osteophytes of the medial compartment and patella. Severe lateral | | | patellofemoral compartment joint space loss is observed. Bone | | | mineralization is normal. There is a small joint effusion. Soft | | | tissues are unremarkable. The left knee demonstrates no acute | | | findings. Mild medial compartment joint space loss is observed. There | | | is severe lateral patellofemoral compartment joint space loss. Bone | | | mineralization is normal. There is a small joint effusion. Soft | | | tissues are unremarkable. IMPRESSION - Degenerative changes of | | | bilateral knees including severe lateral patellofemoral compartment | | | joint space loss. Dictated and Signed by: Martin Pastor MD | | | Electronically signed: 12/08/2014 3:01 PM | | + + + + + | Procedure Note | + + | Silas, Rad Results In - 12/08/2014 3:05 PM PDT XR KNEE LEFT 4 + VW 12/08/2014 2:26 PM | | | | HISTORY: knee pain. | | | | COMPARISON: None. | | | | FINDINGS: | | The right knee shows no acute findings. There is moderate medial joint space | | loss. Large osteophytes are noted of the lateral femoral condyle. There are | | small osteophytes of the medial compartment and patella. Severe lateral | | patellofemoral compartment joint space loss is observed. Bone mineralization is | | normal. There is a small joint effusion. Soft tissues are unremarkable. | | | | The left knee demonstrates no acute findings. Mild medial compartment joint | | space loss is observed. There is severe lateral patellofemoral compartment joint | | space loss. Bone mineralization is normal. There is a small joint effusion. Soft | | tissues are unremarkable. | | | | IMPRESSION - | | Degenerative changes of bilateral knees including severe lateral patellofemoral | | compartment joint space loss. | | | | Dictated and Signed by: Martin Pastor MD | | Electronically signed: 12/08/2014 3:01 PM | + + + + + + + | Performing | Address | City/State/Zipcode | Phone Number | | Organization | | | | + + + + + | [address] | [address] | [place] | [phone] | | [facility] | | [address] | | | - IMAGING | | | | + + + + + documented in this encounter Visit Diagnoses + + | Diagnosis | + + | Bilateral knee pain - Primary Pain in joint, lower leg | + + documented in this encounter"
--- OUTSIDE RECORDS SUMMARY | ~2019-07-02 | XMS | Encounter Summary ---
Demographics + + + | Address | [address] | | | [place] [address] | + + + | Home Phone | | + + + | Preferred Language | Unknown | + + + | Marital Status | | + + + | Zoroastrianism Affiliation | 1076 | + + + | Race | Unknown | + + + | Ethnic Group | Unknown | + + + Author + + + | Author | [facility] | | | and Primo | + + + | Organization | [facility] | | | and [place] [...] [place], [place] | | | | | [address] | | + + + + + | Dalton Fernandez | ECON | Unknown | | + + + + + | Juana Fernandez | ECON | Unknown | | + + + + + Care Team Providers + +------+ + | Care Supervisor Blood Name | Role | Phone | + +------+ + | Dutch Rodriguez DO | PCP | | + +------+ + Encounter Details +--------+ + + + + | Date | Type | Department | Care Team | Description | +--------+ + + + + | 11/02/ | Orders Only | [facility] | Ramin Bess | S/P ORIF (open | | 2018 | | ORTHOPEDIC SURGERY | MD Swathi Gonzalez [facility] | reduction internal | | | | [address] [place] [address] | [place] | fixation) fracture | | | | [place] | [address] | (Primary Dx) | | | | [address] | | | | | | [phone] | | | +--------+ + + + [...] [place] | | | | | | [address] | | | | | | | | +--------+---------+ + + + documented as of this encounter Results XR Knee Left 1 - 2 Vw (01/01/2018 4:12 PM PDT) + + | Specimen | + + | | + + + + + | Narrative | Performed At | + + + | CLINICAL INFORMATION: S/P ORIF RETROGRADE IM FEMORAL DOS 10/23/16. | [facility] | | COMPARISON: 01/25/2017. FINDINGS/IMPRESSION - 2 views of the | | | left knee. Total knee arthroplasty changes, the femoral and | | | tibial components appear well seated. Intramedullary diogo and screw | | | fixation of the distal femoral fracture which demonstrates sclerosis | | | and bony remodeling consistent with healed fracture. Probable | | | small joint effusion. Dictated and Signed by: Florentin Gutierrez MD | | | Electronically signed: 01/01/2018 7:45 PM | | + + + + + | Procedure Note | + + | Silas, Rad Results In - 01/01/2018 7:48 PM PDT CLINICAL INFORMATION: S/P ORIF | | RETROGRADE IM FEMORAL DOS 10/23/16.COMPARISON: 01/25/2017.FINDINGS/IMPRESSION -2 views of | | the left knee. Total knee arthroplasty changes, the femoral and tibial components appear | | wellseated. Intramedullary diogo and screw fixation of the distal femoral fracturewhich | | demonstrates sclerosis and bony remodeling consistent with healedfracture.Probable small | | joint effusion.Dictated and Signed by: Florentin Gutierrez MD Electronically signed: | | 01/01/2018 7:45 PM | |Total knee arthroplasty changes, the femoral and tibial components appear well | |seated. Intramedullary diogo and screw fixation of the distal femoral fracture | |which demonstrates sclerosis and bony remodeling consistent with healed | |fracture. | | | |Probable small joint effusion. | | | |Dictated and Signed by: Florentin Gutierrez MD | | Electronically signed: 01/01/2018 7:45 PM | + + + +---------+ + + | Performing | Address | City/State/Zipcode | Phone Number | | Organization | | | | + +---------+ + + | [facility] | | | | + +---------+ + + documented in this encounter Visit Diagnoses + + | Diagnosis | + + | S/P ORIF (open reduction internal fixation) fracture - Primary | + + documented in this encounter"
--- OUTSIDE RECORDS SUMMARY | ~2019-07-02 | XMS | Clinical Summary ---
Demographics + + + | Address | [address] | | | [place] [address] | + + + | Home Phone | | + + + | Preferred Language | Unknown | + + + | Marital Status | | + + + | Yazdanism Affiliation | Unknown | + + + | Race | Unknown | + + + | Ethnic Group | Other Race | + + + Author + + + | Author | NON REVENUE LOCATIONS | + + + | Organization | NON REVENUE LOCATIONS | + + + | Address | Unknown | + + + | Phone | Unavailable | + + + Support + + +---------+ + | Name | Relationship | Address | Phone | + + +---------+ + | Pt None Per | ECON | Unknown | Unavailable | + + +---------+ + Care Team Providers + +------+ + | Care Housekeeper Nanny Name | Role | Phone | + +------+ + | Dutch Rodriguez DO | PCP | | + +------+ + Source Comments FREDRICK is fully live on both [facility] and [facility] InPatient.[facility] Allergies + + + + + + | Active Allergy | Reactions | Severity | Noted | Comments | | | | | Date | | + + + + + + | Codeine | Unknown | | 03/09/20 | | | | | | 17 | | + + + + + + | Hydrocodone | Rash | | 03/09/20 | | | | | | 17 | | + + + + + + | Onion | Anaphylaxis | High | 03/09/20 | | | | | | 17 | | + + + + + + | Penicillin | Rash | | 08/04/20 | | | | | | 17 | | + + + + + + Medications + + + +---------+------+------+-------+ | Medication | Sig | Dispensed | Refills | Star | End | Statu | | | | | | t | Date | s | | | | | | Date | | | + + + +---------+------+------+-------+ | cycloSPORINE | Instill 1 drop into | 60 each | 0 | 08/0 | | Activ | | (RESTASIS) 0.05 % | both eyes two times | | | 3/20 | | e | | ophthalmic | daily. | | | 17 | | | | dropperette | | | | | | | + + + +---------+------+------+-------+ | pilocarpine 5 mg | Take 1 tablet by | 120 | 0 | 08/0 | | Activ | | oral tablet | mouth four times | tablet | | 3/20 | | e | | | daily. | | | 17 | | | + + + +---------+------+------+-------+ | minocycline 50 mg | Take 1 capsule by | 60 | 0 | 08/0 | | Activ | | oral capsule | mouth two times | capsule | | 3/20 | | e | | | daily. | | | 17 | | | + + + +---------+------+------+-------+ | hydroxypropyl | Apply to lower lid | 60 each | 0 | 08/0 | | Activ | | cellulose | once daily | | | 3/20 | | e | | (LACRISERT) 5 mg | | | | 17 | | | | ophthalmic insert | | | | | | | + + + +---------+------+------+-------+ | omeprazole 20 mg | Take 1 capsule by | 60 | 0 | 08/0 | | Activ | | oral capsule,delayed | mouth two times | capsule | | 4/20 | | e | | release(DR/EC) | daily. | | | 17 | | | + + + +---------+------+------+-------+ | ranitidine 150 mg | Take 1 tablet by | 60 | 0 | 08/0 | | Activ | | oral tablet | mouth twice daily. | tablet | | 4/20 | | e | | | | | | 17 | | | + + + +---------+------+------+-------+ Active Problems Not on file Social History + +-------+ +--------+------+ | Tobacco [...] recent travel history available. | + + Last Filed Vital Signs Not on file Plan of Treatment + + + + + | Health Maintenance | Due Date | Last Done | Comments | + + + + + | Pneumococcal | Completed | 12/02/2018, 10/19/2016 | | | vaccination | | | | + + + + + | Influenza (Flu) | Completed | 04/12/2019, 04/13/2018, | | | vaccination | | 04/13/2018, Additional history | | | | | exists | | + + + + + Results Not on filefrom Last 3 Months"
--- OUTSIDE RECORDS SUMMARY | ~2019-07-02 | XMS | Encounter Summary ---
Demographics + + + | Address | [address] | | | [place] [address] | + + + | Home Phone | | + + + | Preferred Language | Unknown | + + + | Marital Status | | + + + | Jain Affiliation | 1076 | + + + | Race | Unknown | + + + | Ethnic Group | Unknown | + + + Author + + + | Author | [facility] | | | and Primo | + + + | Organization | [facility] | | | and [...] [place], [place] | | | | | [address] | | + + + + + | Dalton Koroma | ECON | Unknown | | + + + + + | Juana Koroma | ECON | Unknown | | + + + + + Care Team Providers + +------+ + | Care Air Conditioning Coil Assembler Name | Role | Phone | + +------+ + | Dutch Rodriguez DO | PCP | | + +------+ + Reason for Visit +---------+ + | Reason | Comments | +---------+ + | Post Op | orif retrograde im femoral DOS 10/23/16 | +---------+ + Encounter Details +--------+---------+ + + + | Date | Type | Department | Care Team | Description | +--------+---------+ + + + | 01/25/ | Office | [facility] | Ramin Huggins | S/P orthopedic | | 2017 | Visit | ORTHOPEDIC SURGERY | MD Swathi Gonzalez | surgery, follow-up | | | | [address] [facility] | [place] | exam (Primary Dx) | | | | [place] | [address] | | | | | [address] | | | | | | [phone] | | | +--------+---------+ + + + [...] encounter Progress Notes Ramin Huggins MD - 01/25/2017 8:39 PM PDT [facility] ORTHOPEDIC SURGER [facility] [address] [facility] [address] OFFICE NOTE RAMIN HUGGINS MD Patient: MYRIAM KOROMA Admitting: MR #: [id number] LOC: PT TYPE: Adm Date: 01/25/2017 : 1950 Myriam returns today for followup of her left supracondylar periprosthetic femur fracture t reated on 10/23/2016 with a retrograde interlocked intramedullary femoral nail. Today, she notes that she is having zero pain. She is now out about 3 months from the injury. She has continued to attend physical therapy faithfully and is making good progress. Today her knee is examined. Incision is well healed. There is minimal residual swelling. Her motion is approximately 0-100 degrees, but she notes that she has reached 105 degrees of flexion in physical therapy. The knee is stable. Neurovascular function is intact to h er left foot. X-rays were taken of the left knee and reviewed, which show that the fracture continues to heal with visible callus formation surrounding the fracture site and continued good hardwa re placement. ADVICE: Myriam continues to progress steadily. She did have over 135 degrees of flexion p rior to the fracture of her knee. We have cautioned her that she may not reach that amount of flexion after this significant injury. However, I feel that she probably will be able to regain flexion in excess of 105 degrees with faithful attendance of physical therapy. She will now be allowed to remove her brace on a full-time basis, but may wish to still use the brace when walking in a crowded area or on uneven surfaces. She will continue to atte nd physical therapy and we will see her back for an x-ray and clinical check of her left k nee in approximately 6 weeks. RAMIN HUGGINS MD Dictated by RAMIN HUGGINS MD 01/25/2017 20:39:53 Transcribed on 01/26/2017 06:28:03 by ameena job# [id number] Confirmation #: [id number] cc: DUTCH ERIK DO Ramin Ureña MD - 01/25/2017 2:30 PM PDTSee soap note [id number].Electronically si gned by Ramin Huggins MD at 01/25/2017 8:40 PM PDTdocumented in this encounter Plan of Treatment +--------+---------+ + + + | Date | Type | Specialty | Care Team | Description | +--------+---------+ + + + | 07/22/ | Office | Orthopedic Surgery | Ramin Huggins | | | 2018 | Visit | | MD Lisa [address] [place] [address] | | | | | | [place] [...]
--- OUTSIDE RECORDS SUMMARY | ~2019-07-02 | XMS | Encounter Summary ---
Demographics + + + | Address | [address] | | | [place] [address] | + + + | Home Phone | | + + + | Preferred Language | Unknown | + + + | Marital Status | | + + + | Sikhism Affiliation | 1076 | + + + | Race | Unknown | + + + | Ethnic Group | Unknown | + + + Author + + + | Author | [facility] | | | and Primo | + + + | Organization | [facility] | | | and [place] [...] [place], [place] | | | | | [address] | | + + + + + | Dalton Fernandez | ECON | Unknown | | + + + + + | Juana Fernandez | ECON | Unknown | | + + + + + Care Team Providers + +------+ + | Care Meat Counter Worker Name | Role | Phone | + +------+ + | Dutch Rodriguez DO | PCP | | + +------+ + Reason for Visit + + + | Reason | Comments | + + + | Pre-op Exam | preop right total knee arthroplasty dos 05/26/15 | + + + Encounter Details +--------+---------+ + + + | Date | Type | Department | Care Team | Description | +--------+---------+ + + + | 05/04/ | Office | [facility] | Ramin Bess | Pre-op testing | | 2015 | Visit | ORTHOPEDIC SURGERY | MD Lisa [address] | (Primary Dx); | | | | [address] | [place] | Primary | | | | [place] | [address] | osteoarthritis of | | | | [address] | | both knees | | | | [phone] | | | +--------+---------+ + + + [...] + + + | Blood Pressure | 120/74 | 05/04/2015 1:57 PM | | | | | PDT | | + + + + + | Pulse | 76 | 05/04/2015 1:57 PM | | | | | PDT | | + + + + + | Temperature | 36.9 C (98.4 F) | 05/04/2015 1:57 PM | | | | | PDT | | + + + + + | Respiratory Rate | 14 | 05/04/2015 1:57 PM | | | | | PDT | | + + + + + | Oxygen Saturation | - | - | | + + + + + | Inhaled Oxygen | - | - | | | Concentration | | | | + + + + + | Weight | 74.8 kg (165 lb) | 05/04/2015 1:57 PM | | | | | PDT | | + + + + + | Height | 154.9 cm (5' 1") | 05/04/2015 1:57 PM | | | | | PDT | | + + + + + | Body Mass Index | 31.18 | 05/04/2015 1:57 PM | | | | | PDT | | + + + + + documented in this encounter Plan of Treatment +--------+---------+ + + + | Date | Type | Specialty | Care Team | Description | +--------+---------+ + + + | 07/22/ | Office | Orthopedic Surgery | Ramin Bess | | | 2019 | Visit | | MD Swathi Gonzalez | | | | | | [place] | | | | | | [id number] | | | | | | | | +--------+---------+ + + + documented as of this encounter Results Urinalysis with Microscopic with Culture if Indicated (05/04/2015 3:19 PM PDT) + + + + + + | Component | Value | Ref Range | Performed | Pathologist | | | | | At | Signature | + + + + + + | Color | [place] (A) | Light Yellow, | [facility] | | | | | Yellow | [facility] | | | | | | MEDICAL | | | | | | CENTER - | | | | | | LABORATORY | | + + + + + + | Clarity | Clear | Clear | [facility] | | | [...] + + + + | Specific | 1.010 | 1.001 - 1.030 | [facility] | | | [place] | | | [facility] | | [...] + + + + | Urobilinoge | 0.2 E.U./dL | 0.2 E.U./dL, | [facility] | | | n, Urine | | 1.0 E.U./dL | [facility] | | | | | | MEDICAL | | | | | | CENTER - | | | | | | LABORATORY | | + + + + + + | WBC UA | 0-2 | 0 - 2 [...] + + + | BACTERIA UA | 1+ (A) | Negative /HPF | [facility] | | | | | | [facility] | | | | | | MEDICAL | | | | | | CENTER - | | | | | | LABORATORY | | + + + + + + | URINE | Urine Culture Not | | [facility] | | | COMMENT | Indicated | | [facility] | | | | | | MEDICAL | | | | | | CENTER - | | | | | | LABORATORY | | + + + + + + + + | Specimen | + + | Urine | + + + + + + + | Performing | Address | City/State/Zipcode | Phone Number | | Organization | | | | + + + + + | [facility] | [address] | [place] | [phone] | | [facility] | | [address] | | | - LABORATORY | | | | + + + + + Comprehensive Metabolic Panel (05/04/2015 3:14 PM PDT) + + + + + + | Component | Value | Ref Range | Performed | Pathologist | | | | | At | Signature | + + + + + + | Na | 140 | 136 - 149 | [facility] | | | | | mmol/L | [facility] | | | | | [...] + + + | Anion Gap | 8 | 3 - 16 mmol/L | [facility] | | | | | | [facility] | | | | | | MEDICAL | | | | | | CENTER - | | | | | | LABORATORY | | + + + + + + | Glucose | 104 | 70 - 109 mg/dL | [facility] | | | | | | [facility] | | | | | | MEDICAL | | | | | | CENTER - | | | | | | LABORATORY | | + + + + + + | BUN | 15 | 7 - 18 mg/dL | [facility] | | | | | | [facility] | | | | | | MEDICAL | | | | | | CENTER - | | | | | | LABORATORY | | + + + + + + | Creatinine | 0.81 | 0.60 - 1.30 | [facility] | [...] | mL/min/1.73m2 | [facility] | | | [place] | RATE,ESTIMATED | | MEDICAL | | | | mL/min/1.76t7Dzdj than | | CENTER - | | [...] + + + + | Calcium | 9.3 | 8.3 - 10.5 | [facility] | | | | | mg/dL | [facility] | | | | | | MEDICAL | | | | | | CENTER - | | | | | | LABORATORY | | + + + + + + | Albumin | 3.8 | 3.2 - 5.0 g/dL | [facility] | | | | | | [facility] [...] + + + + | Total | 6.8 | 6.0 - 7.8 g/dL | [facility] | | | Protein | | | [facility] | | | | | | MEDICAL | | | | | | CENTER - | | | | | | LABORATORY | | + + + + + + | AST | 31 | 10 - 42 U/L | [facility] | | | | | | [facility] | | | | | | MEDICAL | | | | | | CENTER - | | | | | | LABORATORY | | + + + + + + | ALT | 29 | 6 - 45 U/L | [facility] | | | | | | [facility] | | | | | | MEDICAL | | | | | | CENTER - | | | | | | LABORATORY | | + + + + + + | Alkaline | 58 | 40 - 110 U/L | [facility] | | | Phosphatase | | | [facility] | | | | | | MEDICAL | | | | | | CENTER - | | | | | | LABORATORY | | + + + + + + | Globulin | 3.0 | g/dL | [facility] | | | | | | [facility] | | | | | | MEDICAL | | | | | | CENTER - | | | | | | LABORATORY | | + + + + + + | Albumin/Aparna | 1.3 | | [facility] | | | bulin Ratio | | | [facility] | | | | | | MEDICAL | | | | | | CENTER - | | | | | | LABORATORY | | + + + + + + | BUN/Creatin | 18.5 | | [facility] | | | ine [...] + + | [facility] | [address] | [place] | [phone] | | [facility] | | [address] | | | - LABORATORY | | | | + + + + + CBC with Differential (05/04/2015 3:14 PM PDT) + +-------+ + + + | Component | Value | Ref Range | Performed | Pathologist | | | | | At | Signature | + +-------+ + + + | WBC | 6.2 | 4.0 - 11.0 K/uL | [facility] | | | | | | [facility] | | | | | | MEDICAL | | | | | | CENTER - | | | | | | LABORATORY | | + +-------+ + + + | RBC | 4.60 | 3.70 - 5.20 | [facility] | | | | | M/uL | [facility] | | | | | | MEDICAL | | | | | | CENTER - | | | | | | LABORATORY | | + +-------+ + + + | Hemoglobin | 14.0 | 11.5 - 16.0 | [facility] | | | | | g/dL | [facility] | | | | | | MEDICAL | | | | | | CENTER - | | | | | | LABORATORY | | + +-------+ + + + | Hematocrit | 43.1 | 34.0 - 47.0 % | [facility] | | | | | | [facility] | | | | | | MEDICAL | | | | | | CENTER - | | | | | | LABORATORY | | + +-------+ + + + | MCV | 93.8 | 83.0 - 101.0 fL | [facility] | | | | | | [facility] | | | | | | MEDICAL | | | | | | CENTER - | | | | | | LABORATORY | | + +-------+ + + + | MCH | 30.3 | 28.0 - 35.0 pg | [facility] | | | | | | [facility] | | | | | | MEDICAL | | | | | | CENTER - | | | | | | LABORATORY | | + +-------+ + + + | MCHC | 32.4 | 32.0 - 36.0 | [facility] | | | | | g/dL | [facility] | | | | | | MEDICAL | | | | | | CENTER - | | | | | | LABORATORY | | + +-------+ + + + | RDW-CV | 13.5 | <15.0 % | [facility] | | | | | | [facility] | | | | | | MEDICAL | | | | | | CENTER - | | | | | | LABORATORY | | + +-------+ + + + | Platelet | 300 | 140 - 440 K/uL | [facility] | | | Count | | | [facility] | | | | | | MEDICAL | | | | | | CENTER - | | | | | | LABORATORY | | + +-------+ + + + | MPV | 8.0 | fL | [facility] | | | | | | [facility] | | | | | | MEDICAL | | | | | | CENTER - | | | | | | LABORATORY | | + +-------+ + + + | % | 59.7 | 45.0 - 82.0 % | [facility] | | | Neutrophils | | | [facility] | | | | | | MEDICAL | | | | | | CENTER - | | | | | | LABORATORY | | + +-------+ + + + | % | 29.0 | 20.0 - 45.0 % | [facility] | | | Lymphocytes | | | [facility] | | | | | | MEDICAL | | | | | | CENTER - | | | | | | LABORATORY | | + +-------+ + + + | % Monocytes | 7.1 | 4.0 - 12.0 % | [facility] | | | | | | [facility] | | | | | | MEDICAL | | | | | | CENTER - | | | | | | LABORATORY | | + +-------+ + + + | % | 3.7 | 0.0 - 5.0 % | [facility] | | | Eosinophils | | | [facility] | | | | | | MEDICAL | | | | | | CENTER - | | | | | | LABORATORY | | + +-------+ + + + | % Basophils | 0.5 | 0.0 - 1.0 % | [facility] | | | | | | [facility] | | | | | | MEDICAL | | | | | | CENTER - | | | | | | LABORATORY | | + +-------+ + + + | Absolute | 3.70 | 1.80 - 8.50 | [facility] | | | Neutrophils | | K/uL | [facility] | | | | | | MEDICAL | | | | | | CENTER - | | | | | | LABORATORY | | + +-------+ + + + | Absolute | 1.80 | 0.60 - 3.20 | [facility] | | | Lymphocytes | | K/uL | [facility] | | | | | | MEDICAL | | | | | | CENTER - | | | | | | LABORATORY | | + +-------+ + + + | Absolute | 0.40 | 0.00 - 1.00 | [facility] | | | Monocytes | | K/uL | [facility] | | | | | | MEDICAL | | | | | | CENTER - | | | | | | LABORATORY | | + +-------+ + + + | Absolute | 0.20 | 0.00 - 0.40 | [facility] | | | Eosinophils | | K/uL | [facility] | | | | | | MEDICAL | | | | | | CENTER - | | | | | | LABORATORY | | + +-------+ + + + | Absolute | 0.00 | 0.00 - 0.10 | [facility] | | | Basophils | | K/uL | [facility] | | | | [...] + + | [facility] | [address] | [place] | [phone] | | [facility] | | [address] | | | - LABORATORY | | | | + + + + + documented in this encounter Visit Diagnoses + + | Diagnosis | + + | Pre-op testing - Primary Preoperative examination, unspecified | + + | Primary osteoarthritis of both knees Primary localized osteoarthrosis, lower leg | + + documented in this encounter
--- OUTSIDE RECORDS SUMMARY | ~2019-07-02 | XMS | Encounter Summary ---
Demographics + + + | Address | [address] | | | [place] [address] | + + + | Home Phone | | + + + | Preferred Language | Unknown | + + + | Marital Status | | + + + | Pentecostalism Affiliation | 1076 | + + + | Race | Unknown | + + + | Ethnic Group | Unknown | + + + Author + + + | Author | [facility] | | | and Primo | + + + | Organization | [facility] | | | [...] [place], [place] | | | | | [address] | | + + + + + | Dalton Fernandez | ECON | Unknown | | + + + + + | Juana Fernandez | ECON | Unknown | | + + + + + Care Team Providers + +------+ + | Care Web Content Specialist Name | Role | Phone | + +------+ + | Dutch Rodriguez DO | PCP | | + +------+ + Encounter Details +--------+ + + + + | Date | Type | Department | Care Team | Description | +--------+ + + + + | 02/22/ | Orders Only | [facility] | Zachery Soria | Status post total | | 2015 | | ORTHOPEDIC SURGERY | [address] | knee replacement, | | | | [address] [facility] | [facility] | left | | | | [address] | [place] [address] | | | | | [address] | [phone] | | | | | [phone] | | | +--------+ + + + [...] 2018 | Visit | | MD Lisa [address] | | | | | | [place] | | | | | | [address] | | | | | | | | +--------+---------+ + + + documented as of this encounter Procedures + +--------+ + + + | Procedure Name | Priori | Date/Time | Associated Diagnosis | Comments | | | ty | | | | + +--------+ + + + | XR KNEE LEFT 1 - 2 | Routin | 03/16/2016 | Status post total | Results for this | | VW | e | 3:06 PM | knee replacement, | procedure are in the | | | | PDT | left | results section. | + +--------+ + + + documented in this encounter Results XR Knee Left 1 - 2 Vw (03/16/2016 3:06 PM PDT) + + | Specimen | + + | | + + + + + | Narrative | Performed At | + + + | EXAM: XR KNEE LEFT 1 - 2 VW dated 03/16/2016 2:37 PM HISTORY:KNEE | [facility] | | PAIN COMPARISON: 02/09/2016 FINDINGS:Frontal and lateral views | [facility] | | of the left knee. Total knee arthroplasty changes are in place. | MEDICAL CENTER | | No evidence for an interval complication. Resolved operative | - IMAGING | | changes in the soft tissues. Residual soft tissue thickening as | | | expected. IMPRESSION - No radiographic evidence for an | | | interval complication. Dictated and Signed by: Cecilio Weir MD | | | Electronically signed: 03/16/2016 3:49 PM | | + + + + + | Procedure Note | + + | Silas, Rad Results In - 03/16/2016 3:52 PM PDT EXAM: XR KNEE LEFT 1 - 2 VW dated | | 03/16/2016 2:37 PMHISTORY:KNEE PAINCOMPARISON: 02/09/2016FINDINGS:Frontal and lateral views | | of the left knee. Total knee arthroplastychanges are in place. No evidence for an | | interval complication. Resolvedoperative changes in the soft tissues. Residual soft | | tissue thickening asexpected.IMPRESSION -No radiographic evidence for an interval | | complication.Dictated and Signed by: Cecilio Weir MD Electronically signed: | | 03/16/2016 3:49 PM | |changes are in place. No evidence for an interval complication. Resolved | |operative changes in the soft tissues. Residual soft tissue thickening as | |expected. | | | |IMPRESSION - | | | |No radiographic evidence for an interval complication. | | | |Dictated and Signed by: Cecilio Weir MD | | Electronically signed: 03/16/2016 3:49 PM | + + + + + + + | Performing | Address | City/State/Zipcode | Phone Number | | Organization | | | | + + + + + | [facility] | [address] | [place] | [phone] | | [facility] | | [address] | | | - IMAGING | | | | + + + + + documented in this encounter Visit Diagnoses + + | Diagnosis | + + | Status post total knee replacement, left | + + documented in this encounter"
--- OUTSIDE RECORDS SUMMARY | ~2019-07-02 | XMS | Encounter Summary ---
Demographics + + + | Address | [address] | | | [place] [address] | + + + | Home Phone | | + + + | Preferred Language | Unknown | + + + | Marital Status | | + + + | Protestant Affiliation | 1076 | + + + | Race | Unknown | + + + | Ethnic Group | Unknown | + + + Author + + + | Author | [facility] | | | and Primo | + + + | Organization | [facility] | | | and [place] [...] [place], [place] | | | | | [address] | | + + + + + | Dalton Koroma | ECON | Unknown | | + + + + + | Juana Koroma | ECON | Unknown | | + + + + + Care Team Providers + +------+ + | Care Enterprise Applications Manager Name | Role | Phone | + +------+ + | Dutch Rodriguez DO | PCP | | + +------+ + Reason for Visit +---------+ + | Reason | Comments | +---------+ + | Post Op | ORIF left retrograde IM femoral DOS 10/23/16 | +---------+ + Encounter Details +--------+---------+ + + + | Date | Type | Department | Care Team | Description | +--------+---------+ + + + | 11/06/ | Office | [facility] | Ramin Huggins | S/P orthopedic | | 2017 | Visit | ORTHOPEDIC SURGERY | MD Swathi Gonzalez | surgery, follow-up | | | | [address] [facility] | [place] | exam (Primary Dx) | | | | [place] | [address] | | | | | [address] | | | | | | [phone] | | | +--------+---------+ + + + [...] + + + + | Temperature | 37.2 C (99 F) | 11/06/2016 4:32 PM | | | | | PDT [...] encounter Progress Notes Ramin Huggins MD - 11/06/2016 5:54 PM PDTSejude soap note [id number].Electronically dakota d by Ramin Huggins MD at 11/06/2016 5:54 PM PDTHenRamin fierro MD - 11/06/2016 5:53 PM PDT [facility] ORTHOPEDIC SURGERY [address] [place] [id number] OFFICE NOTE RAMIN HUGGINS MD Patient: MYRIAM KOROMA Admitting: MR #: [id number] LOC: PT TYPE: Adm Date: 11/06/2016 : 1950 Myriam returns today for followup of her left distal thigh surgery, which included open red uction and internal fixation of a displaced unstable comminuted left periprosthetic supraco ndylar femur fracture utilizing a 13 mm diameter x 320 mm long Nuenz retrograde femoral n ail with a 60 mm, 70 mm, and 75 mm distal interlocking screws and a single 30 mm proximal locking screw. Today, she states she is having essentially no pain. She is no longer usin g any pain pills and she is eager to begin moving her knee. EXAM: The patient's left knee is examined. All incisions have healed nicely. There is n o evidence of drainage or infection. The leg appears to be straight to inspection. Neurov ascular function is intact to her left foot. ADVICE: Today we have removed maco from all the incisions. We have reapplied the knee immobilizer. We have dispensed a range of motion knee brace to the patient, and we will a llow her to start using the range of motion knee brace as of a week from today, set at 0-30 degrees. We have instructed the patient's to increase the range of motion from 0 to 50 degrees, 1 week later and we will then plan to see Myriam back for an x-ray check of h er left knee in 3 weeks. She will continue to maintain a nonweightbearing status to her le ft foot in the meantime. RAMIN HUGGINS MD Dictated by RAMIN HUGGINS MD 11/06/2016 17:53:58 Transcribed on 11/07/2016 16:12:52 by reynaldo job# [id number] Confirmation #: [id number] cc: DUTCH LUISANAJULIA DO documented in this encounter Plan of Treatment +--------+---------+ + + + | Date | Type | Specialty | Care Team | Description | +--------+---------+ + + + | 07/22/ | Office | Orthopedic Surgery | Ramin Huggins | | | 2019 | Visit | | MD Swathi Gonzalez | | | | | | [place] | | | | | | [address] | | | | | | | | +--------+---------+ + + + documented as of this encounter Visit Diagnoses + + | Diagnosis | + + | S/P orthopedic surgery, follow-up exam - Primary Follow-up examination, following | | other surgery | + + documented in this encounter"
--- OUTSIDE RECORDS SUMMARY | ~2019-07-02 | XMS | Encounter Summary ---
Demographics + + + | Address | [address] | | | [place] [address] | + + + | Home Phone | | + + + | Preferred Language | Unknown | + + + | Marital Status | | + + + | Muslim Affiliation | 1076 | + + + | Race | Unknown | + + + | Ethnic Group | Unknown | + + + Author + + + | Author | [facility] | | | and Primo | + + + | Organization | [facility] | | | and [place] | [...] [place], [place] | | | | | [address] | | + + + + + | Dalton Fernandez | ECON | Unknown | | + + + + + | Juana Fernandez | ECON | Unknown | | + + + + + Care Team Providers + +------+ + | Care Order Builder Name | Role | Phone | + +------+ + | Dutch Rdoriguez DO | PCP | | + +------+ + Reason for Visit + + + | Reason | Comments | + + + | Back Pain | | + + + | Other | MRI F/U | + + + Encounter Details +--------+---------+ + + + | Date | Type | Department | Care Team | Description | +--------+---------+ + + + | 04/02/ | Office | [facility] | Douglas Nuñez MD | Spondylolisthesis of | | 2013 | Visit | NEUROSURGERY [address] | lumbar region | | | | [address] | [place] [address] | (Primary Dx); Lumbar | | | | [place] | [phone] | radiculopathy; | | | | [address] | | Foraminal stenosis | | | | [phone] | | of lumbar region; | | | | | | Degenerative disc | | | | | | disease, lumbar | +--------+---------+ + + + Social History [...] + + + | Blood Pressure | 100/67 | 04/02/2014 1:04 PM | | | | | PDT | | + + + + + | Pulse | 108 | 04/02/2014 1:04 PM | | | | | PDT [...] + + + + | Weight | 74.7 kg (164 lb 9.6 | 04/02/2014 1:04 PM | | | | oz) | PDT | | + + + + + | Height | 162.6 cm (5' 4") | 04/02/2014 1:04 PM | | | | | PDT | | + + + + + | Body Mass Index | 28.25 | 04/02/2014 1:04 PM | | | | | PDT | | + + + + + documented in this encounter Patient Instructions Patient Instructions Douglas Nuñez MD - 04/02/2014 1:53 PM PDTWe discussed and will attemp t to arrange a lumbar fusion. I favored an posterior fusion with posterior instrumentation in the form of a TLIF or Transforaminal Lumbar Interbody Fusion. Your insurance provider ma y or may not approve the procedure, but I feel it is medically necessary and appropriate. We discussed a number of important issues including risks, benefits, and alternatives. A spine class is usually available sometime before your surgery. These classes are very us eful in preparing for spinal surgery. I would encourage you to attend one. After surgery, it is critical that you do not start or resume smoking and also that you jalen id taking any and all anti-inflammatory medications like ibuprofen, Motrin, naproxen, Aleve, Celebrex, diclofenac, Mobic, meloxicam, and many others. The bone is much less likely to h eal if you do not avoid these. It is usually best not to take these or smoke for 6 months. You can research this procedure more by going to: [email or web address]/silvio Click the Treatment Options link on the left column. Then, look for Transforaminal Lumbar Interbody Fusion (TLIF) under Surgical Options. documented in this encounter Progress Notes Doulgas Nuñez MD - 04/02/2014 1:53 PM PDTFormatting of this note might be different from t dontae original. Douglas Nuñez M.D. [address] [facility], [address] [place], [place] [address] FAX: NEUROSURGERY FOLLOW-UP CHIEF COMPLAINT: Chief Complaint Patient presents with Back Pain Other MRI F/U HISTORY OF PRESENT ILLNESS: The patient is a 63 y.o. female with the complaint of low back pain and left leg numbness. This patient states that she felt pretty good as far as her lo w back and her legs until in May of this last year she slipped and fell on ice. After t hat she had low back pain which was really quite intense. Two days after the fall she had h ad enough back pain that she had to go to the emergency department. She was told at that ti me she had a fracture of her back and was given medication and asked to followup with her [facility] back surgeon in the future. Unfortunately, the patient is continued to have low back pain which is fairly severe and at times is at a level of 9/10. In November of this year, she started noticing numbness in the lateral portion of her left thigh extending into the l ateral calf and into her great toe on the left side. The pain there is getting worse instea d of better despite non-operative measures. The patient denies any upper extremity problems other than some occasionally tingling in the fifth fingers bilaterally. No loss of fine mo tor skills or balance problems. She returns to discuss her imaging and [...] Onset Heart defect Father Lung cancer Mother REVIEW OF SYSTEMS GENERALLY: No fever, no night sweats, positive for anemia, no fatigue, no recent profound weight changes. EYES: Positive for eye problems, positive for use of corrective lenses, no eye injury, no double vision, positive for transient blindness. EARS, NOSE, AND THROAT: No changes in taste or smell, no hearing difficulty, no ringing in the ears, no ear drainage, positive for dizziness, no voice changes, no difficulty swallowi ng, no significant snoring, no sleep apnea, no sinus problems, positive for major dental wor k. NEUROLOGICALLY: Please see the review of systems discussed above in the history of present illness. In addition, the patient has numbness/pain of legs, back injury, pain in back, an d migraine. PSYCHIATRIC: No depression, no sleep disorders, no anxiety, no bipolar disorder, no psycho tic episodes. CARDIOVASCULAR: No heart attacks, no heart murmur, no heart fluttering, no chest pain, no ankle swelling. LUNG DISEASE: No shortness of breath, no cough, no tuberculosis, no bloody cough, no asth ma, no emphysema/COPD. GASTROINTESTINAL: No bowel disease, no nausea or vomiting, no rectal bleeding, no constipa tion, no stool incontinence, no liver disease, no gallbladder disease, no abdominal pain, no ulcers. KIDNEY DISEASE: No urinary frequency, no painful or difficult urination, no incontinence, positive for bladder problems, and vaginal discharge. ENDOCRINE: No diabetes, no thyroid disease, no osteopenia or osteoporosis, no breast drain age. SKIN: No breast lumps, no skin changes, no rashes, no itches. HEMATOLOGIC/LYMPHATIC: No enlarged lymph nodes, no easy or unusual bleeding, no personal h istory of cancer. RHEUMATOLOGIC: Positive for joint arthritis/pain, no rheumatoid arthritis. PHYSICAL EXAMINATION: Blood pressure 100/67, pulse 108, height 1.626 m (5' 4"), weight 74.662 kg (164 lb 9.6 oz). Body mass index is 28.24 kg/(m^2). GENERAL: Mike Fernandez is in no [...] has no apparent deficits with short or ocean transportation intermediary memory. MOTOR EXAM: (5 IS NORMAL) * Indicates pain limited MUSCLE/ MOVEMENT: RIGHT LEFT Deltoids 5 5 Biceps 5 5 Triceps 5 5 Wrist Flexion 5 5 Wrist Extension 5 5 Median Intrinsics 5 5 Ulnar Intrinsics 5 5 Helper Teacher Strength 5 5 Hip Flexion 5 5 [...] Spondylolisthesis of lumbar region Yes Lumbar radiculopathy Foraminal stenosis of lumbar region Degenerative disc disease, lumbar GENERAL DIAGNOSES: Past Medical History Diagnosis Date Gastric reflux Migraine PLAN: It was a pleasure meeting and evaluating this patient today, and I greatly appreciate the r eferral. The patient has lumbar spondylolisthesis as her likely cause of leg symptoms. I d iscussed a L3-5 TLIF as an option given her failed conservative care. We discussed the risks, alternatives, and benefits to surgical intervention with Ms. Fernandez in clinic. These risks included but were not limited to , stroke, heart attack, numbne ss, weakness, paralysis, failure of fusion, failure of hardware, subsidence, adjacent segmen t degeneration, cerebrospinal fluid leak, bleeding, infection, injury to surrounding tissues and organs, injury from positioning, injury to the nerves, difficulty with breathing, diffi culty with swallowing, difficulty with voice change, and need for additional surgery. Surgical options were discussed and the technique to be employed was described in detail to her. All her questions were answered. We discussed that the goal of the surgery is to prevent progression of her disease, but it is not considered a cure. We also discussed that although some patients may obtain 100% sym ptom relief, it is realistic to anticipate that some symptoms will continue postoperatively despite a successful surgery. We also discussed that there is no guarantee that surgery will provide improvement in her c ondition, and indeed may even worsen the symptoms. We also discussed that in the course of the procedure the operative plan may be altered to include more, less, or different levels d epending upon findings in order to provide her with the best possible outcome. I recommended for this patient that she be fitted with a brace before surgery to improve he r stability now to support her weak muscles and to reduce pain by restricting mobility. For multiple (more than 1 level fusions), I recommend the use of a bone growth stimulator p ostoperatively. This is to improve the probability and rate of fusion. We will seek authorization for surgery. ELECTRONICALLY SIGNED BY: Douglas Nuñez M.D. 04/02/2014 13:53 documented in this encou nter Plan of Treatment +--------+---------+ + + + | Date | Type | Specialty | Care Team | Description | +--------+---------+ + + + | 07/22/ | Office | Orthopedic Surgery | Ramin Bess | | | 2019 | Visit | | MD Lisa [address] [place] [address] | | | | | | [place] | | | | | | [address] | | | | | | | | +--------+---------+ + + + documented as of this encounter Visit Diagnoses + + | Diagnosis | + + | Spondylolisthesis of lumbar region - Primary Acquired spondylolisthesis | + + | Lumbar radiculopathy Thoracic or lumbosacral neuritis or radiculitis, unspecified | + + | Foraminal stenosis of lumbar region Spinal stenosis, lumbar region, without | | neurogenic claudication | + + | Degenerative disc disease, lumbar Degeneration of lumbar or lumbosacral | | intervertebral disc | + + documented in this encounter
--- OUTSIDE RECORDS SUMMARY | ~2019-07-02 | XMS | Encounter Summary ---
Demographics + + + | Address | [address] | | | [place] [address] | + + + | Home Phone [...] | [facility] | | | and Primo | + + + | Organization | [facility] | | | and [...] [place], [place] | | | | | [address] | | + + + + + | Dalton Fernandez | ECON | Unknown | | + + + + + | Juana Fernandez | ECON | Unknown | | + + + + + Care Team Providers + +------+ + | Care Fire Crew Specialist Name | Role | Phone | + +------+ + | Dutch Rodriguez DO | PCP | | + +------+ + Reason for Visit + + + | Reason | Comments | + + + | Follow-up | LEFT TKA DOS 02/09/16 | + + + Evaluate & Treat (Routine) + +--------+ + + + + | Status | Reason | Specialty | Diagnoses / | Referred By | Referred To | | | | | Procedures | Contact | Contact | + +--------+ + + + + | Authorized | | Orthopedic | Diagnoses | Jennifer, | Shahriar, | | | | Surgery | Pain in | DO Dutch | Ramin Gonzalez MD | | | | | left knee | [address] | [address] | | | | | Pain in | [address] | [address] | | | | | right hip | [address] | [place] | | | | | | [place], | [address] Phone: | | | | | | [place] | [phone] | | | | | | [address] | Fax: | | | | | | Phone: | [phone] | | | | | | [phone] | | | | | | | Fax: | | | | | | | [phone] | | + +--------+ + + + + Encounter Details +--------+---------+ + + + | Date | Type | Department | Care Team | Description | +--------+---------+ + + + | 06/17/ | Office | [facility] | Zachery Soria | Sprain of collateral | | 2019 | Visit | ORTHOPEDIC SURGERY | [address] | ligament of left | | | | [address] [facility] | [facility] | knee, initial | | | | [place], [place] | [place] [address] | encounter (Primary | | | | [address] | [phone] | Dx); Right knee | | | | [phone] | | pain, unspecified | | | | | | chronicity; Left | | | | | | knee pain, | | | | | | unspecified | | | | | | chronicity | +--------+---------+ + + + Social History [...] Weight | 77.1 kg (170 lb) | 06/17/2019 10:10 AM | | | | | PST | | + + + + + | Height | 162.6 cm (5' 4") | 06/17/2019 10:10 AM | | | | | PST | | + + + + + | Body Mass Index | 29.18 | 06/17/2019 10:10 AM | | | | | PST [...] encounter Progress Notes Zachery Soria PA-C - 06/17/2019 10:45 AM PSTFormatting of this note might be differe nt from the original. Name:Ana Fernandez Todays Date: 06/17/2019 Age: 68 y.o. PCP: Dutch Rodriguez DO Chief Complaint Patient presents with Follow-up LEFT TKA DOS 02/09/16 SUBJECTIVE: Patient returns today with complaint of pain that increased at her left knee on within the last 2 months. She describes that she spent the day in [place] for a doctor appointment a nd was running several errands to include a high degree of ambulation. She describes that s he drove back to her home in [place] and had her leg and a very slight deformity while dri ving. She describes that near the end of her drive with no clear inciting incident she was having a prominent medial knee pain and subsequently just drove to be physical therapy offic e where they were able to do warm compresses and start to get the knee feeling better. She describes that he did not want to move almost as if it had locked up. She is now attended 2 physical therapy visits. The pain is been significantly reducing. Her current level pain is 0. She wants to assure that nothing else is wrong with the knee. To recap patient had u nderwent uneventful left total knee arthroplasty performed on 02/09/2016 and she had quite betty ropriately and well and without difficulty. She is only using Tylenol for pain control PRN. Her current level of pain is 0 OBJECTIVE: She ambulates without assistance of a walker and/or cane. She is able to be full weightbea ring and no significant abnormal gait favoring the left knee. The patella is tracking well within patellofemoral groove and there is no lateral subluxation and appears to be quite sta ble located centrally at the trochlea. Range of motion is approximately 2-120 degrees thoug h she notes it was worse. She is quite stable with both valgus and varus stressing and no p ain is noted. No increased medial or lateral instability. Negative AP drawer. Negative ba llottement test. Prominent pain on palpating over the entirety of the MCL with a slight bul ging observed at the proximal insertion with palpable almost hard object appreciated Imaging/Studies Xr Knee Left 1 - 2 Vw Result Date: 06/17/2019 CLINICAL INFORMATION: Left knee pain. COMPARISON: 01/01/2018. FINDINGS: 4 views of the left knee. Intramedullary diogo and screw fixation of the femur. Total knee arthroplasty changes. N o evidence to suggest hardware complication. Stable alignment with bony deformity at the dis amarilys femur. No acute fracture or dislocation. Possible small joint effusion. Peripheral vascu lar calcifications. Small linear ossification anterior to the distal femoral diaphysis, like ly myositis ossificans. Stable ORIF changes of the distal femur and knee arthroplasty hardware. No evidence of inte rval complication. Possible small joint effusion. Dictated and Signed by: Florentin Gutierrez MD Electronically signed: 06/17/2019 11:17 AM Vitals: 06/17/19 1010 Weight: 77.1 kg (170 lb) Height: 1.626 m (5' 4") ASSESSMENT/PLAN: 1. Left knee MCL sprain; grade 2 A. Review of plain film imaging study obtained today reveals no clear suggestion of hardw are complication or loosening. I carefully compared the images obtained today to the most r ecently obtained plain films of the knee and cannot detect any clear abnormality or changes. Examination of his pathology motions with that of an MCL sprain. For the most of the time being recommend that we continue with physical therapy which has already been ordered. I w ould like her to return once physical therapy has been completed if she is still having any degree of discomfort. No further imaging warranted at this time. B. Patient is advised that if they have any questions, comments or concerns to contact our office. Electronically signed by: Zachery Soria PA-C 06/17/2019 5:29 PM If patient received pain medication today the prescription monitoring program was reviewed and patient appears to be in compliance with his program. This note was dictated using the [employer] voice recognition system. Minor errors in grammar [...] [place] | | | | | | [address] | | | | | | | | +--------+---------+ + + + documented as of this encounter Results XR Knee Left 1 - 2 Vw (06/17/2019 10:39 AM PST) + + | Specimen | + + | | + + + + + | Impressions | Performed At | + + + | Stable ORIF changes of the distal femur and knee arthroplasty | [facility] | | hardware. No evidence of interval complication. Possible small | | | joint effusion. Dictated and Signed by: Florentin Gutierrez MD | | | Electronically signed: 06/17/2019 11:17 AM | | + + + + + + | Narrative | Performed At | + + + | CLINICAL INFORMATION: Left knee pain. COMPARISON: 01/01/2018. | [facility] | | FINDINGS: 4 views of the left knee. Intramedullary diogo and | | | screw fixation of the femur. Total knee arthroplasty changes. No | | | evidence to suggest hardware complication. Stable alignment with bony | | | deformity at the distal femur. No acute fracture or dislocation. | | | Possible small joint effusion. Peripheral vascular calcifications. 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 | | + + + + + | Procedure Note | + + | Silas, Rad Results In - 06/17/2019 11:20 AM PST CLINICAL INFORMATION: Left knee pain. | | | | COMPARISON: 01/01/2018. | | | | FINDINGS: | | 4 views of the left knee. | | | | Intramedullary diogo and screw fixation of the femur. Total knee arthroplasty | | changes. No evidence to suggest hardware complication. Stable alignment with | | bony deformity at the distal femur. | | | | No acute fracture or dislocation. Possible small joint effusion. | | | | Peripheral vascular calcifications. 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 | | | | IMPRESSION: | | | | Stable ORIF changes of the distal femur and knee arthroplasty hardware. No | | evidence of interval complication. | | | | Possible small joint effusion. | | | | Dictated and Signed by: Florentin Gutierrez MD | | Electronically signed: 06/17/2019 11:17 AM | + + + +---------+ + + | Performing | Address | City/State/Zipcode | Phone Number | | Organization | | | | + +---------+ + + | [facility] | | | | + +---------+ + + documented in this encounter Visit Diagnoses + + | Diagnosis | + + | Sprain of collateral ligament of left knee, initial encounter - Primary | + + | Right knee pain, unspecified chronicity | + + | Left knee pain, unspecified chronicity | + + documented in this encounter
--- OUTSIDE RECORDS SUMMARY | ~2019-07-02 | XMS | Encounter Summary ---
Demographics + + + | Address | [address] | | | [place] [address] | + + + | Home Phone | | + + + | Preferred Language | Unknown | + + + | Marital Status | | + + + | Hinduism Affiliation | 1076 | + + + | Race | Unknown | + + + | Ethnic Group | Unknown | + + + Author + + + | Author | [facility] | | | and Primo | + + + | Organization | [facility] | [...] [place], [place] | | | | | [address] | | + + + + + | Dalton Koroma | ECON | Unknown | | + + + + + | Juana Koroma | ECON | Unknown | | + + + + + Care Team Providers + +------+ + | Care Newspaper Peddler Name | Role | Phone | + +------+ + | Dutch Valencia DO | PCP | | + +------+ + Reason for Visit + + + | Reason | Comments | + + + | Knee Pain | bilateral knee pain worse since 06/2014 | + + + | New Patient | establish care with Dr. Huggins | + + + Evaluate & Treat (Routine) +--------+ + + [...] | | Required | | pain | [facility] | [address] | | | | | | [place], | [place] | | | | | | [place] [address] | [place] | | | | | | Phone: | [address] Phone: | | | | | | [phone] | [phone] | | | | | | Fax: | Fax: | | | | | | [phone] | [phone] | +--------+ + + + + + Encounter Details +--------+---------+ + + + | Date | Type | Department | Care Team | Description | +--------+---------+ + + + | 05// | Office | [facility] | Ramin Huggins | Primary | | 2015 | Visit | ORTHOPEDIC SURGERY | MD Lisa [address] [facility] | osteoarthritis of | | | | [address] [facility] | [place] | both knees (Primary | | | | [place] | [address] | Dx) | | | | [address] | | | | | | [phone] | | | +--------+---------+ + + + [...] Temperature | 37 C (98.6 F) | 12/08/2014 2:36 PM | | | | | PDT [...] Weight | 75.3 kg (166 lb) | 12/08/2014 2:36 PM | | | | | PDT | | + + + + + | Height | 154.9 cm (5' 1") | 12/08/2014 2:36 PM | | | | | PDT | | + + + + + | Body Mass Index | 31.37 | 12/08/2014 2:36 PM | | | | | PDT | | + + + + + documented in this encounter Progress Notes Ramin Huggins MD - 12/08/2014 4:49 PM PDTSee soap note [id number].Electronically sign ed by Ramin Huggins MD at 12/08/2014 4:49 PM PDTRamin Huggins MD - 4:48 PM PDT [facility] ORTHOPEDIC SURGERY [address] [place] [id number] OFFICE NOTE RAMIN HUGGINS MD Patient: ANA KOROMA Admitting: MR #: [id number] LOC: PT TYPE: Adm Date: 12/08/2014 : 1950 IDENTIFICATION: Kristin Koroma is a 64-year-old female who sees Dr. Valencia, in [facility] or primary care. CHIEF COMPLAINT: Bilateral knee pain, right slightly worse than left: Kristin states that she has a many year history of bilateral knee pain. She has no known injury. She does reca ll that she underwent a right knee surgery in 1980, at which time she underwent partial rem oval of her right knee medial meniscus. She now notes that both knees are quite achy. Javi roque has difficulty arising from a chair. She has difficulty ascending and descending steps. She can walk on a level surface moderately comfortable still. PAST MEDICAL HISTORY: Environmental allergies, anemia, arthritis, cataracts which have be en removed, gastroesophageal reflux disease, and osteoporosis, as well as migraine headache s. PAST SURGICAL HISTORY: Includes a right knee partial medial meniscectomy in 1980. Right shoulder rotator cuff repair in December 2013, and lumbar laminectomy and fusion June 2014, as well as eye surgery, EGD, and colonoscopy. MEDICATION ALLERGIES: Include ONIONS, CODEINE, PEPPER, and PENICILLIN. CURRENT MEDICATIONS: Artificial Tears as needed. Calcium carbonate daily. Refresh ophthalmic solution as needed. Restasis ophthalmic solution as needed. EpiPen as needed. Hydrocodone as needed for pain. Iron daily. Claritin as needed. Multiple vitamins daily. Probiotic daily. Aspirin 325 mg by mouth daily. B complex vitamins daily. Vitamin D3 2000 units by mouth daily. Flexeril 10 mg by mouth 3 times a day as needed for spasm. Fish oil 1000 mg by mouth daily . Neurontin: No longer taking. Minocycline 50 mg daily. Omeprazole 20 mg by mouth daily. Pilocarpine 5 mg by mouth daily. FAMILY HISTORY: Positive for arthritis, asthma, COPD, heart disease and Parkinson's disea se. SOCIAL HISTORY: The patient denies use of tobacco. She drinks rare alcoholic beverages. REVIEW OF SYSTEMS: Positive for numbness and tingling in her legs, cataracts, glasses, a partial denture, back pain, joint problems, and osteoarthritis. EXAMINATION: The patient's knees are examined. She has mild swelling of both knees, sugg estive of a small effusion. Her motion is 0-125 degrees. Ligaments are stable. She has o bvious and prominent crepitus emanating from the patellofemoral compartments of both knees. She has tenderness with patellofemoral compression. She has well-healed skin scars cons istent with her prior right knee surgery. Neurovascular function is intact to both feet. X-RAYS: X-rays are taken and reviewed, both knees. These show profound patellofemoral de generative joint disease in both knees with diffuse degenerative changes throughout both kn ee joints. ASSESSMENT: 1. Bilateral knee degenerative joint disease with significant involvement of both patello femoral compartments bilaterally. 2. Multiple medical comorbidities. ADVICE: We discussed our plans at length with Kristin and her . We have answered juventino dawson questions. We have given her patient education material regarding knee joint replac ement surgery. We discussed the option of a patellofemoral isolated compartment replaceme nt, but in view of the degenerative changes present throughout the entire joint, I feel shay t she would be best served with a complete total knee joint replacement when she is ready f or surgery. She will consider these options, and will contact us in the future regarding h er decision for surgical intervention. RAMIN HUGGINS MD Dictated by RAMIN HUGGINS MD 12/08/2014 16:48:39 Transcribed on 12/08/2014 20:32:46 by nitza job# [id number] Confirmation #: [id number] cc: DUTCH VALENCIA DO documented in this encounter Plan of Treatment +--------+---------+ + + + | Date | Type | Specialty | Care Team | Description | +--------+---------+ + + + | 07/22/ | Office | Orthopedic Surgery | Ramin Huggins | | | 2019 | Visit | | MD Lisa [address] [place] [address] | | | | | | [place] | | | | | | [id number] | | | | | | | | +--------+---------+ + + + documented as of this encounter Procedures + +--------+ + + + | Procedure Name | Priori | Date/Time | Associated Diagnosis | Comments | | | ty | | | | + +--------+ + + + | AMB REFERRAL TO [facility] | Routin | 12/08/2014 | S/P lumbar fusion | | | [facility] | e | | | | | SURGERY | | | | | + +--------+ + + + documented in this encounter Visit Diagnoses + + | Diagnosis | + + | Primary osteoarthritis of both knees - Primary Primary localized osteoarthrosis, | | lower leg | + + documented in this encounter
--- OUTSIDE RECORDS SUMMARY | ~2019-07-02 | XMS | Encounter Summary ---
Demographics + + + | Address | [address] | | | [place] [address] | + + + | Home Phone [...] Author | [facility] | | | and Primo | + + + | Organization | [facility] | | | and [...] [place], [place] | | | | | [address] | | + + + + + | Dalton Fernandez | ECON | Unknown | | + + + + + | Juana Fernandez | ECON | Unknown | | + + + + + Care Team Providers + +------+ + | Care Bull Chain Operator Name | Role | Phone | + +------+ + | Dutch Rodriguez DO | PCP | | + +------+ + Reason for Visit + + + | Reason | Comments | + + + | Hospital Follow-up | | + + + Encounter Details +--------+ + + + + | Date | Type | Department | Care Team | Description | +--------+ + + + + | 06/01/ | Telephone | [facility] | [facility], | Hospital Follow-up | | 2014 | | [facility] | Trinh Morton | | | | | [address] | [address] | | | | | [place] [address] | [place] | | | | | [phone] | [id number] | | | | | | | [...]
--- OUTSIDE RECORDS SUMMARY | ~2019-07-02 | XMS | Encounter Summary ---
Demographics + + + | Address | [address] | | | [place] [address] | + + + | Home Phone [...] | Author | [facility] | | | and Primo | + + + | Organization | [facility] | | | and [place] [...] [place] | | | | | [address] | | + + + + + | Dalton Fernandez | ECON | Unknown | | + + + + + | Juana Fernandez | ECON | Unknown | | + + + + + Care Team Providers + +------+ + | Care Body Corporate Manager Name | Role | Phone | [...] | | [address] | [place] [address] | | | | | [place] | [phone] | | | | | [address] | | | | | | [phone] | | | +--------+ + + + [...] 2019 | Visit | | MD Lisa [address] [place] [address] | | | | | | [place] | | | | | | [address] | | | | | | | [...] COMPARISON: LUMBAR MRI DECEMBER 03, 2013 FROM [facility] | LAB | | HOSPITAL FINDINGS: [...] painCOMPARISON: LUMBAR MRI DECEMBER 03, 2013 FROM [facility] | | HOSPITALFINDINGS: AP, lateral bending [...] + | MISCELLANEOUS LAB | | | [phone] | + +---------+ + + | MISCELANIOUS LAB | | | [phone] | + +---------+ + + documented in this encounter Visit Diagnoses + + | Diagnosis | + + | Back pain - Primary Backache, unspecified | + + documented in this encounter"
--- OUTSIDE RECORDS SUMMARY | ~2019-07-02 | XMS | Encounter Summary ---
Demographics + + + | Address | [address] | | | [place] [address] | + + + | Home Phone | | + + + | Preferred Language | Unknown | + + + | Marital Status | | + + + | Baptism Affiliation | 1076 | + + + | Race | Unknown | + + + | Ethnic Group | Unknown | + + + Author + + + | Author | [facility] | | | and Primo | + + + | Organization | [facility] | | | and [place] [...] [place], [place] | | | | | [address] | | + + + + + | Dalton Fenrandez | ECON | Unknown | | + + + + + | Juana Fernandez | ECON | Unknown | | + + + + + Care Team Providers + +------+ + | Care Bolt Machine Operator Name | Role | Phone | + +------+ + | Dutch Rodriguez DO | PCP | | + +------+ + Reason for Referral Diagnostic/Screening (Routine) +--------+--------+ + + + + | Status | Reason | Specialty | Diagnoses / | Referred By | Referred To | | | | | Procedures | Contact | Contact | +--------+--------+ + + + + | Closed | | Radiology | Diagnoses | Shahriar, | [facility] | | | | | Primary | Ramin Gonzalez, | [address] | | | | | localized | MD [address] | [place], | | | | | osteoarthros | [address] | [place] | | | | | is, lower | [place], | [address] | | | | | leg, right | [place] [address] | Phone: | | | | | Fitting and | Phone: | [phone] | | | | | adjustment | [phone] | Fax: | | | | | of | Fax: | [phone] | | | | | unspecified | [phone] | | | | | | prosthetic | | | | | | | device | | | | | | | Procedures | | | | | | | MRI Knee | | | | | | | Right wo | | | | | | | Contrast | | | +--------+--------+ + + + + Reason for Visit + + + | Reason | Comments | + + + | Procedure | | + + + Encounter Details +--------+ + + + + | Date | Type | Department | Care Team | Description | +--------+ + + + + | 02/22/ | Telephone | [facility] | Rmain Bess | Procedure | | 2014 | | ORTHOPEDIC SURGERY | MD Lisa [address] [facility] | | | | | [address] [facility] | [place], [place] | | | | | [place], [place] | [address] | | | | | [address] | | | | | | [phone] | | | +--------+ + + + [...] | Visit | | MD Swathi Gonzalez [facility] | | | | | | [place] | | | | | | [address] | | | | | | | | +--------+---------+ + + + documented as of this encounter Results MRI Knee Right wo Contrast (04/07/2015 11:55 AM PDT) + + | Specimen | + + | | + + + + + | Narrative | Performed At | + + + | LIMITED MRI RIGHT KNEE-PROSTHESIS PLANNIN04/07/2015 11:22 AM | [facility] | | CLINICAL HISTORY: KNEE PAIN PROSTHESIS FITTING IMPRESSION - | [facility] | | Limited MR images of the right knee are performed per prosthesis | [facility] | | fitting protocol. No diagnostic evaluation is requested or performed. | - IMAGING | | Dictated and Signed by: Bao Justice MD Electronically | | | signed: 04/07/2015 2:15 PM | | + + + + + | Procedure Note | + + | Silas, Rad Results In - 04/07/2015 2:18 PM PDT LIMITED MRI RIGHT KNEE-PROSTHESIS | | PLANNIN04/07/2015 11:22 AMCLINICAL HISTORY: KNEE PAINPROSTHESIS FITTINGIMPRESSION - | | Limited MR images of the right knee are performed per prosthesisfitting protocol. No | | diagnostic evaluation is requested or performed.Dictated and Signed by: Bao Justice | | Electronically signed: 04/07/2015 2:15 PM | |IMPRESSION - Limited MR images of the right knee are performed per prosthesis | |fitting protocol. No diagnostic evaluation is requested or performed. | | | |Dictated and Signed by: Bao Justice MD | | Electronically signed: 04/07/2015 2:15 PM | + + + + + + + | Performing | Address | City/State/Zipcode | Phone Number | | Organization | | | | + + + + + | [facility] [facility] | [address] | [place] | [phone] | | [facility] | | [address] | | | - IMAGING | | | | + + + + + documented in this encounter Visit Diagnoses + + | Diagnosis | + + | Primary localized osteoarthrosis, lower leg, right - Primary | + + | Fitting and adjustment of unspecified prosthetic device | + + documented in this encounter"
--- OUTSIDE RECORDS SUMMARY | ~2019-07-02 | XMS | Encounter Summary ---
Demographics + + + | Address | [address] | | | [place] [address] | + + + | Home Phone | | + + + | Preferred Language | Unknown | + + + | Marital Status | | + + + | Mandaen Affiliation | 1076 | + + + | Race | Unknown | + + + | Ethnic Group | Unknown | + + + Author + + + | Author | [facility] | | | and Primo | + + + | Organization | [facility] | | | and [...] [place], [place] | | | | | [address] | | + + + + + | Dalton Fernandez | ECON | Unknown | | + + + + + | Juana Fernandez | ECON | Unknown | | + + + + + Care Team Providers + +------+ + | Care Landing Signal Officer Name | Role | Phone | [...] + + | 02/18/ | Telephone | [facility] [place] | Ramin Bess | New Medication | | 2018 | | ORTHOPEDIC SURGERY | MD Lisa [address] [facility] | Request | | | | [address] [facility] | [place] | | | | | [place] | [address] | | | | | [address] | | | | | | [phone] | | | +--------+ + + + [...] [place] | | | | | | [address] | | | | | | | | +--------+---------+ + + + documented as of this encounter Visit Diagnoses Not on filedocumented in this encounter"
--- OUTSIDE RECORDS SUMMARY | ~2019-07-02 | XMS | Encounter Summary ---
Demographics + + + | Address | [address] | | | [place] [address] | + + + | Home Phone | | + + + | Preferred Language | Unknown | + + + | Marital Status | | + + + | Zoroastrianism Affiliation | 1076 | + + + | Race | Unknown | + + + | Ethnic Group | Unknown | + + + Author + + + | Author | [facility] | | | and Primo | + + + | Organization | [facility] | [...] [place], [place] | | | | | [address] | | + + + + + | Dalton Fernandez | ECON | Unknown | | + + + + + | Juana Fernandez | ECON | Unknown | | + + + + + Care Team Providers + +------+ + | Care Vice President Mission Integration Name | Role | Phone | + +------+ + | uDtch Rodriguez DO | PCP | | + +------+ + Encounter Details +--------+ + + + + | Date | Type | Department | Care Team | Description | +--------+ + + + + | 12/08/ | [facility] | [facility] | Ramin Bess | Bilateral knee pain | | 2015 | Encounter | [facility] XRAY | MD Lisa [address] [facility] | | | | | [address] | [place] | | | | | [place] | [address] | | | | | [address] | | | | | | [phone] | | | +--------+ + + + [...] [place] | | | | | | [address] | | | | | | | | +--------+---------+ + + + documented as of this encounter Procedures + +--------+ + + + | Procedure Name | Priori | Date/Time | Associated Diagnosis | Comments | | | ty | | | | + +--------+ + + + | XR KNEE LEFT 4 + VW | Routin | 12/08/2014 | Bilateral knee | Results for this | | | e | 2:26 PM | pain | procedure are in the | | | | PDT | | results section. | + +--------+ + + + documented in this encounter Results XR Knee Left 4 + Vw (12/08/2014 2:26 PM PDT) + + | Specimen | + + | | + + + + + | Narrative | Performed At | + + + | XR KNEE LEFT 4 + VW 12/08/2014 2:26 PM HISTORY: knee pain. | [facility] | | COMPARISON: None. FINDINGS: The right knee shows no acute | [facility] | | findings. There is moderate medial [...] + + | Performing | Address | City/State/[facility] | Phone Number | | Organization | | | | + + + + + | [facility] | [address] | [place] | [phone] | | [facility] | | [address] | | | - IMAGING | | | | + + + + + documented in this encounter Visit Diagnoses + + | Diagnosis | + + | Bilateral knee pain Pain in joint, lower leg | + + documented in this encounter"
--- OUTSIDE RECORDS SUMMARY | ~2019-07-02 | XMS | Encounter Summary ---
Demographics + + + | Address | [address] | | | [place] [address] | + + + | Home Phone | | + + + | Preferred Language | Unknown | + + + | Marital Status | | + + + | Temple Affiliation | 1076 | + + + | Race | Unknown | + + + | Ethnic Group | Unknown | + + + Author + + + | Author | [facility] | | | and Primo | + + + | Organization | [facility] | | | and [place] [...] [place], [place] | | | | | [address] | | + + + + + | Dalton Fernandez | ECON | Unknown | | + + + + + | Juana Fernandez | ECON | Unknown | | + + + + + Care Team Providers + +------+ + | Care Refractory Bricklayer Name | Role | Phone | + +------+ + | Dutch Rodriguez DO | PCP | | + +------+ + Reason for Visit +--------+ + | Reason | Comments | +--------+ + | Other | ED visit | +--------+ + Encounter Details +--------+ + + + + | Date | Type | Department | Care Team | Description | +--------+ + + + + | 06/15/ | Telephone | [facility] | Douglas Nuñez MD | Other (ED visit) | | 2014 | | NEUROSURGERY [address] | [address] | | | | | [address] [facility] [address] | [place] [address] | | | | | [place] | [phone] | | | | | [address] | | | | | | [phone] | | | +--------+ + + + [...] [place] | | | | | | [id number] | | | | | | | | +--------+---------+ + + + documented as of this encounter Visit Diagnoses Not on filedocumented in this encounter"
--- OUTSIDE RECORDS SUMMARY | ~2019-07-02 | XMS | Encounter Summary ---
Demographics + + + | Address | [address] | | | [place] [address] | + + + | Home Phone | | + + + | Preferred Language | Unknown | + + + | Marital Status | | + + + | Taoism Affiliation | 1076 | + + + | Race | Unknown | + + + | Ethnic Group | Unknown | + + + Author + + + | Author | [facility] | | | and Primo | + + + | Organization | [facility] | | | and [place] [...] [place], [place] | | | | | [address] | | + + + + + | Dalton Fernandez | ECON | Unknown | | + + + + + | Juana Fernandez | ECON | Unknown | | + + + + + Care Team Providers + +------+ + | Care Melter Helper Name | Role | Phone | + [...] Description | +--------+---------+ + + + | 04/13/ | Office | [facility] | Zachery Soria | Status post total | | 2016 | Visit | ORTHOPEDIC SURGERY | [address] | knee replacement, | | | | [address] [facility] | Josué Young | left (Primary Dx) | | | | [place] | [place] [address] | | | | | [address] | [phone] | | | | | [phone] | | | +--------+---------+ + + + [...] Temperature | 37 C (98.6 F) | 04/13/2016 10:38 AM | | | | | PDT [...] Weight | 70.3 kg (155 lb) | 04/13/2016 10:38 AM | | | | | PDT | | + + + + + | Height | 162.6 cm (5' 4") | 04/13/2016 10:38 AM | | | | | PDT | | + + + + + | Body Mass Index | 26.61 | 04/13/2016 10:38 AM | | | | | PDT [...] encounter Progress Notes Zachery Soria PA-C - 04/13/2016 1:50 PM PDTFormatting of this note might be differe nt from the original. Name:Ana Fernandez Todays Date: 04/13/2016 Age: 65 y.o. PCP: Dutch Rodriguez DO Chief Complaint Patient presents with Post Op left total knee arthroplasty DOS 02/09/16 SUBJECTIVE: Patient returns today for postoperative visit following a left total knee arthroplasty that was performed on 02/09/16. For that she has been recovering well postoperatively but has now noted that she may have hurt her left hamstrings as her range of motion is now decreasing a nd this is where she is having pain. Recalls that she was driving for a long period of time and felt some left leg pain. Describes that she has been up to 125 of flexion at [email or web address] in [facility]. She is only taking anti-inflammatory's as necessary for pain at this time. Current level of pain rated at 0 out of 10 OBJECTIVE: Inspection of the left knee incision site reveals that is healing appropriately and quite w ell. No erythema, induration, swelling or signs of infection. No open wound or drainage is observed. Skin is warm and dry and she is neurovascular intact at the left knee. Active r ivanna of motion today in the office is approximately 0 115 degrees. At her previous visit she had approximately 118. Notes it does feel tight today and previously has had increase d range of motion. Imaging/Studies: No studies to review at this time. Filed Vitals: 04/13/16 1038 Temp: 37 C (98.6 F) TempSrc: Temporal Height: 1.626 m (5' 4") Weight: 70.308 kg (155 lb) ASSESSMENT/PLAN: 1. Left total knee arthroplasty, status postop A. Patient continues to progress well from a left total knee arthroplasty that was perform ed on 02/09/16. Pain continues to remain minimal postoperatively. She feels that she may hav e strained her left hamstrings over this past week as she recently developed pain in this ar ea. She feels that is recovering. Today recommended that she continue with anti-inflammato ry's as necessary for pain. Continue with physical therapy in [facility]; she has 5 r emaining visits left. I'll have her follow-up in approximately 4 weeks for reevaluation. B. Patient is advised that if they have any questions, comments or concerns to contact our office. Electronically signed by: Zachery Soria PA-C 04/13/2016 13:50 This note was dictated using the [employer] voice recognition system. Minor errors in grammar may have occurred. documented in th is encounter Plan of Treatment +--------+---------+ + + + | Date | Type | Specialty | Care Team | Description | +--------+---------+ + + + | 07/22/ | Office | Orthopedic Surgery | Ramin Bess | | | 2019 | Visit | | MD Lisa [address] [place] [address] | | | | | | [place] [...]
--- OUTSIDE RECORDS SUMMARY | ~2019-07-02 | XMS | Encounter Summary ---
Demographics + + + | Address | [address] | | | [place] [address] | + + + | Home Phone | | + + + | Preferred Language | Unknown | + + + | Marital Status | | + + + | Yazidism Affiliation | 1076 | + + + | Race | Unknown | + + + | Ethnic Group | Unknown | + + + Author + + + | Author | [facility] | | | and Primo | + + + | Organization | [facility] | | | and [...] [place] | | | | | [address] | | + + + + + | Dalton Fernandez | ECON | Unknown | | + + + + + | Juana Fernandez | ECON | Unknown | | + + + + + Care Team Providers + +------+ + | Care Patternmaker Plastics Name | Role | Phone | + +------+ + | Miguel Bocanegra MD | PCP | | + +------+ + Encounter Details +--------+ + + + + | Date | Type | Department | Care Team | Description | +--------+ + + + + | 03/10/ | Abstract | [facility] | Douglas Nuñez MD | | | 2013 | | NEUROSURGERY [address] | [address] | | | | | [facility] [address] | [place] [address] | | | | | [place] | [phone] | | | | | [address] | | | | | | [phone] | | | +--------+ + + + [...] [place] | | | | | | [address] | | | | | | | | +--------+---------+ + + + documented as of this encounter Visit Diagnoses Not on filedocumented in this encounter"
--- OUTSIDE RECORDS SUMMARY | ~2019-07-02 | XMS | Encounter Summary ---
Demographics + + + | Address | [address] | | | [place] [address] | + + + | Home Phone | | + + + | Preferred Language | Unknown | + + + | Marital Status | | + + + | Buddhist Affiliation | 1076 | + + + | Race | Unknown | + + + | Ethnic Group | Unknown | + + + Author + + + | Author | [facility] | | | and Primo | + + + | Organization | [facility] | | | and [place] | + + + | Address | Unknown | + + + | Phone | Unavailable | + + + Support + + + + + | Name | Relationship | Address | Phone | + + + + + | Devang Fernandez | [place] | [address] | | | | | [place], [place] | | | | | [address] | | + + + + + | Dalton Fernandez | ECON | Unknown | | + + + + + | Juana Fernandez | ECON | Unknown | | + + + + + Care Team Providers + +------+ + | Care Cream Hauler Name | Role | Phone | + [...] | 09/01/ | Telephone | [facility] | Douglas Nuñez MD | Other | | 2014 | | NEUROSURGERY [address] | [address] | | | | | [facility] | [place] [address] | | | | | [place] | [phone] | | | | | [address] | | | | | | [phone] | | | +--------+ + + + [...]
--- OUTSIDE RECORDS SUMMARY | ~2019-07-02 | XMS | Encounter Summary ---
Demographics + + + | Address | [address] | | | [place] [address] | + + + | Home Phone | | + + + | Preferred Language | Unknown | + + + | Marital Status | | + + + | Baptism Affiliation | 1076 | + + + | Race | Unknown | + + + | Ethnic Group | Unknown | + + + Author + + + | Author | [facility] | | | and Primo | + + + | Organization | [facility] | | | and [place] [...] [place], [place] | | | | | [address] | | + + + + + | Dalton Fernandez | ECON | Unknown | | + + + + + | Juana Fernandez | ECON | Unknown | | + + + + + Care Team Providers + +------+ + | Care Financial Secretary Name | Role | Phone | + [...] | +--------+ + + + + | 09/03/ | Telephone | [facility] | Ramin Bess | New Medication | | 2017 | | ORTHOPEDIC SURGERY | MD Lisa [address] [facility] | Request | | | | [address] [facility] | [place] | | | | | [place] | [address] | | | | | [address] | | | | | | [phone] | | | +--------+ + + + [...] [place] | | | | | | [id number] | | | | | | | | +--------+---------+ + + + documented as of this encounter Visit Diagnoses Not on filedocumented in this encounter"
--- OUTSIDE RECORDS SUMMARY | ~2019-07-02 | XMS | Encounter Summary ---
Demographics + + + | Address | [address] | | | [place] [address] | + + + | Home Phone | | + + + | Preferred Language | Unknown | + + + | Marital Status | | + + + | Mandaeism Affiliation | 1076 | + + + | Race | Unknown | + + + | Ethnic Group | Unknown | + + + Author + + + | Author | [facility] | | | and Primo | + + + | Organization | [facility] | | | and [place] | + + + | Address | Unknown | + + + | Phone | Unavailable | + + + Support + + + + + | Name | Relationship | Address | Phone | + + + + + | Devnag Fernandez | [place] | [address] | | | | | [place] | | | | | [address] | | + + + + + | Dalton Fernandez | ECON | Unknown | | + + + + + | Juana Fernandez | ECON | Unknown | | + + + + + Care Team Providers + +------+ + | Care Suction Plate Roller Hand Name | Role | Phone | + +------+ + | Miguel Bocanegra MD | PCP | | + +------+ + Encounter Details +--------+ + + + + | Date | Type | Department | Care Team | Description | +--------+ + + + + | 12/26/ | Orders Only | [facility] | Douglas uNñez MD | Back pain (Primary | | 2013 | | NEUROSURGERY [address] | [address] | Dx) | | | | [address] | [place] [address] | | | | | [place] | [phone] | | | | | [address] | | | | | | [phone] | | | +--------+ + + + [...] 2019 | Visit | | MD Lisa [address] [place] [address] | | | | | | [place] | | | | | | [address] | | | | | | | [...] LUMBAR MRI DECEMBER 03, [address] [facility] | LAB | | HOSPITAL FINDINGS: AP, [...] LUMBAR MRI DECEMBER 03, [address] [facility] | | HOSPITALFINDINGS: AP, lateral bending and [...] + | MISCELLANEOUS LAB | | | [phone] | + +---------+ + + | MISCELANIOUS LAB | | | [phone] | + +---------+ + + documented in this encounter Visit Diagnoses + + | Diagnosis | + + | Back pain - Primary Backache, unspecified | + + documented in this encounter"
--- OUTSIDE RECORDS SUMMARY | ~2019-07-02 | XMS | Encounter Summary ---
Demographics + + + | Address | [address] | | | [place] [address] | + + + | Home Phone | | + + + | Preferred Language | Unknown | + + + | Marital Status | | + + + | Samaritan Affiliation | 1076 | + + + | Race | Unknown | + + + | Ethnic Group | Unknown | + + + Author + + + | Author | [facility] | | | and Primo | + + + | Organization | [facility] | | | and [...] [place], [place] | | | | | [address] | | + + + + + | Dalton Fernandez | ECON | Unknown | | + + + + + | Juana Fernandez | ECON | Unknown | | + + + + + Care Team Providers + +------+ + | Care Sql Server Dba Developer Name | Role | Phone | + +------+ + | Dutch Rodriguez DO | PCP | | + +------+ + Encounter Details +--------+ + + + + | Date | Type | Department | Care Team | Description | +--------+ + + + + | 09/18/ | Hospital | [facility] | Nino Hurst | Spondylolisthesis of | | 2015 | Encounter | MED CTR XRAY [address] | [address] | lumbar region; | | | | [place] | [address] | Lumbar | | | | [place] [address] | [place], [place] | radiculopathy; S/P | | | | [phone] | [phone] | lumbar fusion | | | | [...] [place] | | | | | | [address] | | | | | | | [...] 2 or 3 Vw (09/18/2014 11:58 AM [facility]) + + | Specimen | + + [...] ST. | [address] | [place], [place] | [phone] | | [facility] | | [address] | | | - IMAGING | | [...]
--- OUTSIDE RECORDS SUMMARY | ~2019-07-02 | XMS | Encounter Summary ---
Demographics + + + | Address | [address] | | | [place] [address] | + + + | Home Phone [...] | Author | [facility] | | | and Primo | + + + | Organization | [facility] | | | and [place] [...] [place], [place] | | | | | [address] | | + + + + + | Dalton Fernandez | ECON | Unknown | | + + + + + | Juana Fernandez | ECON | Unknown | | + + + + + Care Team Providers + +------+ + | Care Automotive Sales Executive Name | Role | Phone | + +------+ + | Dutch Rodriguez DO | PCP | | + +------+ + Reason for Visit + + + | Reason | Comments | + + + | Paperwork | | + + + Encounter Details +--------+ + + + + | Date | Type | Department | Care Team | Description | +--------+ + + + + | 01/20/ | Telephone | [facility] | Nino Hurst | Paperwork | | 2014 | | NEUROSURGERY [address] | [address] | | | | | [address] | [address] [facility] [address] | | | | | [place], [place] | [place], [place] | | | | | [address] | [address] | | | | | [phone] | | | +--------+ + + + [...] [place] | | | | | | [id number] | | | | | | | | +--------+---------+ + + + documented as of this encounter Visit Diagnoses Not on filedocumented in this encounter"
--- OUTSIDE RECORDS SUMMARY | ~2019-07-02 | XMS | Encounter Summary ---
Demographics + + + | Address | [address] | | | [place] [address] | + + + | Home Phone | | + + + | Preferred Language | Unknown | + + + | Marital Status | | + + + | Baptist Affiliation | 1076 | + + + | Race | Unknown | + + + | Ethnic Group | Unknown | + + + Author + + + | Author | [facility] | | | and Primo | + + + | Organization | [facility] | | | and [place] | [...] [place], [place] | | | | | [address] | | + + + + + | Dalton Fernandez | ECON | Unknown | | + + + + + | Juana Fernandez | ECON | Unknown | | + + + + + Care Team Providers + +------+ + | Care Consumer Recruiter Name | Role | Phone | + [...] | | | | hesis of | [address] | | | | | lumbar | [address] | [address]VE | | | | | region | [place], [place] | [place], [place] | | | | | Lumbar | [address] | [address] | | | | | radiculopath | Phone: | Phone: | | | | | y S/P | [phone] | [phone] | | | | | lumbar | Fax: | Fax: | | | | | fusion | [phone] | [phone] | +--------+ + + + + + Reason for Visit + + + | Reason | Comments | + + + | Follow-up | post op | + + + Encounter Details +--------+ + + + + | Date | Type | Department | Care Team | Description | +--------+ + + + + | 07/22/ | Follow-Up | [facility] | Nino Hurst | Spondylolisthesis of | | 2013 | | NEUROSURGERY [address] | [address] | lumbar region | | | | [address] | [address] | (Primary Dx); Lumbar | | | | [place], [place] | [place] [address] | radiculopathy; S/P | | | | [address] | [phone] | lumbar fusion | | | | [phone] | | | +--------+ + + + [...] your back and use good technique when cloth picker things and bending. Electronic[employer] lly signed by MIREYA Martinez at 07/22/2014 1:34 PM PST documented in this encounter Progress Notes Nino Hurst PA - 07/22/2014 1:38 PM PSTFormatting of this note might be differen t from the original. MIREYA Estrella [address] [place] [address], [address] [place], [place] [id number] FAX: NEUROSURGERY SURGICAL FOLLOW-UP CHIEF COMPLAINT: Chief [...] [place] | | | | | | [address] | | | | | | | [...] VW 09/18/2014 11:58 AM HISTORY: Postop. | [facility] | | COMPARISON: 07/22/2014, 06/18/2014. FINDINGS: There are 5 | [facility] | | nonrib-bearing vertebral bodies. Again visualized [...] ST. | [address] | [place] | [phone] | | [facility] | | [address] | | | - IMAGING | | [...]
--- OUTSIDE RECORDS SUMMARY | ~2019-07-02 | XMS | Encounter Summary ---
Demographics + + + | Address | [address] | | | [place] [address] | + + + | Home Phone [...] + | Author | [facility] | | | and Primo | + + + | Organization | [facility] | | | and [...] [place], [place] | | | | | [address] | | + + + + + | Dalton Fernandez | ECON | Unknown | | + + + + + | Juana Fernnadez | ECON | Unknown | | + + + + + Care Team Providers + +------+ + | Care Nursery Technician Name | Role | Phone | + [...] | | | | | | | Primary | | | | | | | localized | | | | | | | osteoarthros | | | | | | | is, lower | | | | | | | leg, right | | | | | | | Primary | | | | | | | localized | | | | | | | osteoarthros | | | | | | | is, lower | | | | | | | leg, right | | | | | | | Procedures | | | | | | | [place] TOTAL | | | | | | | KNEE | | | | | | | ARTHROPLASTY | | | | | | | | | | | | | | ARTHROPLASTY | | | | | | | TOTAL KNEE | | | +--------+--------+ + + + + Encounter Details +--------+ + + + + | Date | Type | Department | Care Team | Description | +--------+ + + + + | 05/26/ | Anesthesia | [facility] | Pasha Oh, | | | 2014 | Event | [facility] | [address] | | | | | [address] | [place] | | | | | [place] | [address] | | | | | [address] | | | | | | [phone] | | | +--------+ + + + + Anesthesia Record + + + + + | Procedure Name | Responsible | Anesthesia Start | Anesthesia Stop Time | | | Anesthesiologist | Time | | + + + + + | Right Total Knee | Pasha Oh MD | 05/26/15 0739 | 05/26/15 0933 | | Arthroplasty (Right | | | | | Knee) | | | | + + + + + +----+---+ + + | Da | T | Event | Comment | | te | i | | | | | m | | | | | e | | | +----+---+ + + | 10 | 0 | An Checkout | Pre-use anesthesia machine/equipment checkout. | | /2 | 6 | | | | 1/ | 4 | | | | 20 | 8 | | | | 15 | | | | +----+---+ + + | | 0 | | | | | 6 | | | | | 5 | | | | | 8 | | | +----+---+ + + | | 0 | Block Start | | | | 7 | | | | | 3 | | | | | 0 | | | +----+---+ + + | | 0 | Antibiotic | | | | 7 | Given | | | | 3 | | | | | 0 | | | +----+---+ + + | | 0 | an maribel now | | | | 7 | | | | | 3 | | | | | 4 | | | +----+---+ + + | | 0 | AN Block | | | | 7 | End | | | | 3 | | | | | 9 | | | +----+---+ + + | | 0 | An Start | Reassessment prior to anesthesia induction/procedure. | | | 7 | | | | | 3 | | | | | 9 | | | +----+---+ + + | | 0 | Preoxygenat | | | | 7 | ed | | | | 4 | | | | | 6 | | | +----+---+ + + | | 0 | An | | | | 7 | Induction | | | | 4 | | | | | 7 | | | +----+---+ + + | | 0 | An | | | | 7 | Intubation | | | | 4 | | | | | 8 | | | +----+---+ + + | | 0 | AN Bite | | | | 7 | Block | | | | 5 | | | | | 0 | | | +----+---+ + + | | 0 | Superior | | | | 7 | 38-degrees | | | | 5 | | | | | 9 | | | +----+---+ + + | | 0 | An Tourn | | | | 8 | Inflated | | | | 0 | | | | | 4 | | | +----+---+ + + | | 0 | An Tourn | | | | 9 | Deflated | | | | 0 | | | | | 1 | | | +----+---+ + + | | 0 | Superior off | | | | 9 | | | | | 2 | | | | | 5 | | | +----+---+ + + | | 0 | Extubated | | | | 9 | Awake | | | | 3 | | | | | 0 | | | +----+---+ + + | | 0 | an stop | | | | 9 | data | | | | 3 | | | | | 0 | | | +----+---+ + + | | 0 | An Stop | Patient handed off to recovery nurse. | | | 3 | | | | | 3 | | | +----+---+ + + +------+ | Meds | +------+ + + + | Name | Total | + + + | midazolam | 2 mg | + + + | fentaNYL | 100 mcg | + + + | lidocaine 2% (PF) | 80 mg | + + + | propofol | 130 mg | + + + | dexamethasone | 10 mg | + + + | ondansetron | 4 mg | + + + | phenylephrine | 500 mcg | + + + | ropivacaine 0.5% | 20 mL | + + + | tranexamic acid (CYKLOKAPRON) | 1,000 mg | | 1,000 mg in sodium chloride 0.9% | | | 100 mL IVPB | | + + + | ceFAZolin in dextrose (ANCEF) | 2 g | | IVPB 2 g | | + + + | lactated ringers (LR) infusion | 900 mL | + + + + + | Name | + + | N2O Flow Rate (L/Min) | + + | O2 Flow Rate (L/Min) | + + | Insp O2 | + + | Exp SEV | + + | Air Flow Rate (L/Min) | + + + + | No blood administrations on file. | + + +--------+ + + + | Type | Details | Placement | Removal | +--------+ + + + | [READ | 05/26/15729; 05/29/15; 1121 | 05/26/15729 by | 05/29/151121 by | | ONLY] | | Sabrina Horton RN | Dipika Rice RN | | | | | | | Periph | | | | | eral | | | | | IV - | | | | | Single | | | | | Lumen | | | | | | | | | +--------+ + + + | Airway | Placement Date: 05/26/15; | 05/26/15747 by | 10/21/15 0930 by | | | Placement Time: 0748; Mask | Pasha Oh MD | Pasha Oh MD | | | Ventilation: EZ; Attempts: 1; | | | | | Airway Type: laryngeal mask, | | | | | cuffed; Size: 3; Tube Reference | | | | | Point: secure and patent; Trauma: | | | | | none; Placement Check: verified | | | | | by capnography; Placed By: | | | | | Anesthesiologist; Removal Date: | | | | | 05/26/15; Removal Time: 929 | | | +--------+ + + + | Read | 05/26/15; 813; Right:; leg; | 05/26/15 0814 by | 10/29/18 1342 by | | only - | 10/29/18 (Completed/Removed by | Jack Pantoja RN | User Epic | | | Utility); 1342 (Completed/Removed | | | | Incisi | by Utility) | | | | on | | [...] [place] | | | | | | [address] | | | | | | | | +--------+---------+ + + + documented as of this encounter Procedures + +--------+ + + + | Procedure Name | Priori | Date/Time | Associated Diagnosis | Comments | | | ty | | | | + +--------+ + + + | ANESTHESIA BLOCK | Routin | 05/26/2015 | | Results for this | | | e | 8:37 AM | | procedure are in the | | | | PDT | | results section. | + +--------+ + + + documented in this encounter Results ANESTHESIA BLOCK (05/26/2015 8:37 AM PDT) + + + | Narrative | Performed At | + + + | Pasha Oh MD 05/26/2015 8:37 Procedure Note Sciatic | | | Block -- Single Shot, Ultrasound Guided Procedure: Popliteal | | | Sciatic Block Right, Approach: Posterior Technique used to | | | guide the needle to the proximity of the nerve, appropriate space, | | | or fascial plane: Ultrasound Guided. Single-Shot, Incremental | | | Injection Incremental Injection Volume: 4. Ultrasound image(s) | | | saved in patient's chart. Indication: Post-Op Pain Management. | | | Block requested by surgeon or patient. Pre-procedure Events: | | | Patient Identified, Airway Assessed, Risks and Benefits Discussed, | | | Procedure Consent Obtained and Timeout Performed. Patient | | | Positioning: Prone Prep: ChloraPrep used. Skin Local Anesthetic: | | | Lidocaine 1% Needle: 21 G Stimuplex (4 in). Ease: Easy | | | Attempts: 1 Note: Negative Blood Aspirated and Paresthesia. | | | Regional block placed for postoperative pain control at request of | | | patient and surgeon. Ultrasound utilized throughout entirety of | | | procedure for the purposes of directing the needle to nerve | | | proximity and watching spread of local anesthetic. Positive level | | | and "donut" sign. Ultrasound image in chart. SpO2 monitoring | | | (and manually charted in [facility] intraoperative record). | | | Performed by: Performing Provider: PASHA OH Procedure | | | Note Femoral Nerve Block -- Single Shot, Ultrasound Guided | | | Procedure: Femoral Block Right, Approach: Anterior | | | Technique used to guide the needle to the proximity of the nerve, | | | appropriate space, or fascial plane: Ultrasound Guided. Single-Shot, | | | Incremental Injection Incremental Injection Volume: 4. Ultrasound | | | image(s) saved in patient's chart. Indication: Post-Op Pain | | | Management. Block requested by surgeon or patient. Pre-procedure | | | Events: Patient Identified, Pre-op Evaluation Completed, Airway | | | Assessed, Risks and Benefits Discussed, Procedure Consent Obtained | | | and Timeout Performed. Patient Positioning: Supine Prep: ChloraPrep | | | used. Skin Local Anesthetic: Lidocaine 1% Needle: 22 G | | | Stimuplex (2 in). Ease: Easy Attempts: 1 Note: | | | Negative Blood Aspirated and Paresthesia. Regional block performed | | | for postoperative pain control per patient and surgeon request. | | | Ultrasound utilized during entirety of block for purposes of | | | directing needle to nerve proximity. Positive for "donut" sign and | | | level. Ultrasound image in chart. SpO2 monitoring (and charted in | | | [facility]). Performed by: Performing Provider: PASHA OH | | | | | + + + ANESTHESIA BLOCK (05/26/2015 8:37 AM PDT) + + + | Narrative | Performed At | + + + | Pasha Oh MD 05/26/2015 8:37 Procedure Note Sciatic | | | Block -- Single Shot, Ultrasound Guided Procedure: Popliteal | | | Sciatic Block Right, Approach: Posterior Technique used to | | | guide the needle to the proximity of the nerve, appropriate space, | | | or fascial plane: Ultrasound Guided. Single-Shot, Incremental | | | Injection Incremental Injection Volume: 4. Ultrasound image(s) | | | saved in patient's chart. Indication: Post-Op Pain Management. | | | Block requested by surgeon or patient. Pre-procedure Events: | | | Patient Identified, Airway Assessed, Risks and Benefits Discussed, | | | Procedure Consent Obtained and Timeout Performed. Patient | | | Positioning: Prone Prep: ChloraPrep used. Skin Local Anesthetic: | | | Lidocaine 1% Needle: 21 G Stimuplex (4 in). Ease: Easy | | | Attempts: 1 Note: Negative Blood Aspirated and Paresthesia. | | | Regional block placed for postoperative pain control at request of | | | patient and surgeon. Ultrasound utilized throughout entirety of | | | procedure for the purposes of directing the needle to nerve | | | proximity and watching spread of local anesthetic. Positive level | | | and "donut" sign. Ultrasound image in chart. SpO2 monitoring | | | (and manually charted in [facility] intraoperative record). | | | Performed by: Performing Provider: PASHA OH. Procedure | | | Note Femoral Nerve Block -- Single Shot, Ultrasound Guided | | | Procedure: Femoral Block Right, Approach: Anterior | | | Technique used to guide the needle to the proximity of the nerve, | | | appropriate space, or fascial plane: Ultrasound Guided. Single-Shot, | | | Incremental Injection Incremental Injection Volume: 4. Ultrasound | | | image(s) saved in patient's chart. Indication: Post-Op Pain | | | Management. Block requested by surgeon or patient. Pre-procedure | | | Events: Patient Identified, Pre-op Evaluation Completed, Airway | | | Assessed, Risks and Benefits Discussed, Procedure Consent Obtained | | | and Timeout Performed. Patient Positioning: Supine Prep: ChloraPrep | | | used. Skin Local Anesthetic: Lidocaine 1% Needle: 22 G | | | Stimuplex (2 in). Ease: Easy Attempts: 1 Note: | | | Negative Blood Aspirated and Paresthesia. Regional block performed | | | for postoperative pain control per patient and surgeon request. | | | Ultrasound utilized during entirety of block for purposes of | | | directing needle to nerve proximity. Positive for "donut" sign and | | | level. Ultrasound image in chart. SpO2 monitoring (and charted in | | | [facility]). Performed by: Performing Provider: PASHA OH | | | | | + + + documented in this encounter Visit Diagnoses Not on filedocumented in this encounter Administered Medications + +--------+ +------+------+------+ | Medication Order | MAR | Action | Dose | Rate | Site | | | Action | Date | | | | + +--------+ +------+------+------+ | ceFAZolin in dextrose (ANCEF) | Given | 05/26/20 | 2 g | | | | IVPB 2 g 2 g, Intravenous, | | 15 7:30 | | | | | Administer over 30 Minutes, Prior | | AM PDT | | | | | to Incision, Starting Sun | | | | | | | 05/26/15 at 0706, For 1 dose, | | | | | | | Pre-op | | | | | | + +--------+ +------+------+------+ +---+---+ | | | +---+---+ + +-------+ +-------+---+---+ | dexamethasone (DECADRON) 10 | Given | 05/26/20 | 10 mg | | | | mg/mL injection Intravenous, | | 15 8:03 | | | | | PRN, Starting Sun05/26/15 at | | AM PDT | | | | | 0803, Anesthesia Intra-op | | | | | | + +-------+ +-------+---+---+ +---+---+ | | | +---+---+ + +-------+ +--------+---+---+ | fentaNYL injection PRN, Pain, | Given | 05/26/20 | 25 mcg | | | | Starting 05/26/15 at 0803, | | 15 8:53 | | | | | Anesthesia Intra-op | | AM PDT | | | | + +-------+ +--------+---+---+ +-------+ +--------+---+---+ | Given | 05/26/20 | 25 mcg | | | | | 15 8:22 | | | | | | AM PDT | | | | +-------+ +--------+---+---+ | Given | 05/26/20 | 25 mcg | | | | | 15 8:03 | | | | | | AM PDT | | | | +-------+ +--------+---+---+ +---+---+ | | | +---+---+ + +---------+ +---+---+---+ | lactated ringers (LR) infusion | New Bag | 05/26/20 | | | | | at 10-100 mL/hr, Intravenous, | | 15 7:30 | | | | | CONTINUOUS, Starting 05/26/15 | | AM PDT | | | | | at 0730, TKO., Pre-op | | | | | | + +---------+ +---+---+---+ +---+---+ | | | +---+---+ + +-------+ +-------+---+---+ | lidocaine (PF) 2% injection | Given | 05/26/20 | 80 mg | | | | PRN, Starting Sun05/26/15 at | | 15 7:47 | | | | | 0747, Anesthesia Intra-op | | AM PDT | | | | + +-------+ +-------+---+---+ +---+---+ | | | +---+---+ + +-------+ +------+---+---+ | midazolam (VERSED) 1 mg/mL | Given | 05/26/20 | 2 mg | | | | injection Intravenous, PRN, | | 15 7:30 | | | | | Anxiety, Starting 05/26/15 at | | AM PDT | | | | | 0730, Anesthesia Intra-op | | | | | | + +-------+ +------+---+---+ +---+---+ | | | +---+---+ + +-------+ +------+---+---+ | ondansetron (ZOFRAN) injection | Given | 05/26/20 | 4 mg | | | | PRN, Nausea, Vomiting, Starting | | 15 8:03 | | | | | 05/26/15 at 0803, Anesthesia | | AM PDT | | | | | Intra-op | | | | | | + +-------+ +------+---+---+ +---+---+ | | | +---+---+ + +-------+ +---------+---+---+ | phenylephrine (GENESIS-SYNEPHRINE) | Given | 05/26/20 | 100 mcg | | | | 0.1 mg/mL IV syringe PRN, | | 15 9:04 | | | | | Starting 05/26/15 at 0751, | | AM PDT | | | | | Anesthesia Intra-op | | | | | | + +-------+ +---------+---+---+ +-------+ +---------+---+---+ | Given | 05/26/20 | 100 mcg | | | | | 15 8:03 | | | | | | AM PDT | | | | +-------+ +---------+---+---+ | Given | 05/26/20 | 200 mcg | | | | | 15 7:51 | | | | | | AM PDT | | | | +-------+ +---------+---+---+ +---+---+ | | | +---+---+ + +-------+ +--------+---+---+ | propofol (DIPRIVAN) injection | Given | 05/26/20 | 130 mg | | | | PRN, Starting 05/26/15 at | | 15 7:47 | | | | | 0747, Anesthesia Intra-op | | AM PDT | | | | + +-------+ +--------+---+---+ +---+---+ | | | +---+---+ + +-------+ +--------+---+---+ | ropivacaine (NAROPIN) 5 mg/mL | Given | 05/26/20 | 10 mLs | | | | (0.5%) injection PERINEURAL, | | 15 7:39 | | | | | PRN, Starting Sun05/26/15 at | | AM PDT | | | | | 0734, Anesthesia Intra-op | | | | | | + +-------+ +--------+---+---+ +-------+ +--------+---+---+ | Given | 05/26/20 | 10 mLs | | | | | 15 7:34 | | | | | | AM PDT | | | | +-------+ +--------+---+---+ +---+---+ | | | +---+---+ + +---------+ + +---+---+ | tranexamic acid (CYKLOKAPRON) | New Bag | 05/26/20 | 1,000 mg | | | | 1,000 mg in sodium chloride 0.9% | | 15 7:44 | | | | | 100 mL IVPB 1,000 mg, | | AM PDT | | | | | Intravenous, Administer over 30 | | | | | | | Minutes, ONCE, Sun05/26/15 at | | | | | | | 0730, For 1 dose, Pre-op | | | | | | + +---------+ + +---+---+ +---+---+ | | | +---+---+ documented in this encounter
--- OUTSIDE RECORDS SUMMARY | ~2019-07-02 | XMS | Encounter Summary ---
Demographics + + + | Address | [address] | | | [place] [address] | + + + | Home Phone | | + + + | Preferred Language | Unknown | + + + | Marital Status | | + + + | Confucianism Affiliation | 1076 | + + + | Race | Unknown | + + + | Ethnic Group | Unknown | + + + Author + + + | Author | [facility] | | | and Primo | + + + | Organization | [facility] | | | [...] [place], [place] | | | | | [address] | | + + + + + | Dalton Koroma | ECON | Unknown | | + + + + + | Juana Koroma | ECON | Unknown | | + + + + + Care Team Providers + +------+ + | Care Poultry Processing Supervisor Name | Role | Phone | + +------+ + | Dutch Valencia DO | PCP | | + +------+ + Reason for Visit + + + | Reason | Comments | + + + | Follow-up | right tka dos05/26/15 | + + + Encounter Details +--------+---------+ + + + | Date | Type | Department | Care Team | Description | +--------+---------+ + + + | 09/27/ | Office | [facility] | Ramin Huggins | Primary | | 2015 | Visit | ORTHOPEDIC SURGERY | MD Lisa [address] [place] [address] | osteoarthritis of | | | | [address] [place] [address] | [place] | left knee (Primary | | | | [place] | [address] | Dx) | | | | [address] | | | | | | [phone] | | | +--------+---------+ + + + [...] + + | Temperature | 36.9 C (98.5 F) | 09/27/2015 2:02 PM | | | | | PST [...] Weight | 70.3 kg (155 lb) | 09/27/2015 2:02 PM | | | | | PST | | + + + + + | Height | 162.6 cm (5' 4") | 09/27/2015 2:02 PM | | | | | PST | | + + + + + | Body Mass Index | 26.61 | 09/27/2015 2:02 PM | | | | | PST [...] encounter Progress Notes Ramin Huggins MD - 09/27/2015 2:40 PM PSTSee soap note [id number].Electronically sign ed by Ramin Huggins MD at 09/27/2015 2:40 PM PSTRamin Huggins MD - 6 2:39 PM PST [facility] [address] [place] [id number] OFFICE NOTE RAMIN HUGGINS MD Patient: ANA KOROMA Admitting: MR #: [id number] LOC: PT TYPE: Adm Date: 09/27/2015 : 1950 Mrs. Koroma returns today for followup of her right total knee joint arthroplasty. She is very pleased with her result. She is having no pain. She has achieved measured flexion of 135 degrees. She does note that her left knee continues to bother her with increasing omar unts of pain and she would like to proceed with a left knee joint replacement later this y ear. PHYSICAL EXAMINATION: MUSCULOSKELETAL: The patient's right knee is examined. Incision is well healed. The pat ient's motion is 0-135 degrees with good stability and good alignment. Examination of the left knee reveals that she is tender to palpation surrounding the knee joint. ADVICE: Mrs. Koroma has done well. She will plan to be scheduled for a left total joint a rthroplasty in early 02/2016 when her daughter is visiting and can help her postoperatively . RAMIN HUGGINS MD Dictated by RAMIN HUGGINS MD 09/27/2015 14:39:26 Transcribed on 09/28/2015 06:59:22 by rene job# [id number] Confirmation #: [id number] cc: DUTCH VALENCIA DO documented in this [...] [place] | | | | | | [address] | | | | | | | | +--------+---------+ + + + documented as of this encounter Visit Diagnoses + + | Diagnosis | + + | Primary osteoarthritis of left knee - Primary Primary localized osteoarthrosis, lower | | leg | + + documented in this encounter
--- OUTSIDE RECORDS SUMMARY | ~2019-07-02 | XMS | Encounter Summary ---
Demographics + + + | Address | [address] | | | [place] [address] | + + + | Home Phone | | + + + | Preferred Language | Unknown | + + + | Marital Status | | + + + | Catholic Affiliation | 1076 | + + + | Race | Unknown | + + + | Ethnic Group | Unknown | + + + Author + + + | Author | [facility] | | | and Primo | + + + | Organization | [facility] | | | and [place] [...] [place], [place] | | | | | [address] | | + + + + + | Dalton Fernandez | ECON | Unknown | | + + + + + | Juana Fernandez | ECON | Unknown | | + + + + + Care Team Providers + +------+ + | Care Impregnating Helper Name | Role | Phone | + +------+ + | Dutch Rodriguez DO | PCP | | + +------+ + Encounter Details +--------+ + + + + | Date | Type | Department | Care Team | Description | +--------+ + + + + | 04/30/ | [facility] | [facility] | Ramin Bess | Pelvic cyst | | 2015 | Encounter | MED [facility] ULTR[facility]OUND | MD Lisa [address] [place] [address] | | | | | [address] | [place] | | | | | [place] | [address] | | | | | [address] | | | | | | [phone] | Anyi Cohen | | | | | | A, Technologist | | | | | | [place] | | | | | | [address] | | +--------+ + + + + [...] | | Take 1-2 tablets by | 60 | 0 | 05/28/20 | | | HYDROcodone-acetamin | mouth EVERY 4 TO 6 | tablet | | 15 | 5 | | ophen (NORCO) 10-325 | HOURS NEEDED for | | | | | | mg per tablet | Pain. | | | | | [...] + + | ibuprofen (ADVIL, | Take 400 mg by mouth | | 0 | | | | MOTRIN) 200 mg | nightly. To help | | | | 5 | | tablet | prevent migraines | | | | | + + + +---------+ + + | IRON PO | Take 325 mg by mouth | | 0 | | | | | in the morning and | | | | 7 | | | in the evening. | | | | | + + + +---------+ + + | magnesium lactate | Take 84 mg by mouth | | 0 | | | | (MAG-TAB SR) 84 mg | 2 times daily. | | | | 5 | | TBCR | | | | | | + + + +---------+ + + | oxyCODONE 10 MG | Take 0.5-1 tablets | 60 | 0 | 05/28/20 | | | TABS | by mouth EVERY 4 TO | tablet | | 15 | 6 | | | 6 HOURS NEEDED. | | | | | + + + +---------+ + + | rivaroxaban | Take 1 tablet by | 27 | 0 | 05/28/20 | | | (XARELTO) 10 mg | mouth Daily. | tablet | | 15 | 5 | | tablet | | | | | | + + + +---------+ + + | rivaroxaban | Take 1 tablet by | 27 | 0 | 05/28/20 | | | (XARELTO) 10 mg | mouth Daily. | tablet | | 15 | 5 | | tablet | | | | [...] 07/22/ | Office | Orthopedic Surgery | Shahriar Ramin | | | 2018 | Visit | | MD Swathi Gonzalez | | | | | | [place] | | | | | | [address] | | | | | | | | +--------+---------+ + + + documented as of this encounter Procedures + +--------+ + + + | Procedure Name | Priori | Date/Time | Associated Diagnosis | Comments | | | ty | | | | + +--------+ + + + | US PELVIS W | Routin | 04/30/2015 | Pelvic cyst | Results for this | | TRANSVAGINAL | e | 3:55 PM | | procedure are in the | | | | PDT | | results section. | + +--------+ + + + documented in this encounter Results US Pelvis W Transvaginal (04/30/2015 3:55 PM PDT) + + | Specimen | + + | | + + + + + | Narrative | Performed At | + + + | TRANSABDOMINAL AND TRANSVAGINAL PELVIC ULTRASOUND 04/30/2015 3:01 PM | [facility] | | CLINICAL HISTORY: large collection of fluid in the pelvis on | [facility] | | recent knee prosthesis planning MRI COMPARISON: Knee prosthesis [facility] | | planning MR images April 27 [...] ST[address] | [address] | [place] | [phone] | | [facility] | | [address] | | | - IMAGING | | | | + + + + + documented in this encounter Visit Diagnoses + + | Diagnosis | + + | Pelvic cyst Other specified symptom associated with female genital organs | + + documented in this encounter"
--- OUTSIDE RECORDS SUMMARY | ~2019-07-02 | XMS | Encounter Summary ---
Demographics + + + | Address | [address] | | | [place] [address] | + + + | Home Phone | | + + + | Preferred Language | Unknown | + + + | Marital Status | | + + + | Restorationism Affiliation | 1076 | + + + | Race | Unknown | + + + | Ethnic Group | Unknown | + + + Author + + + | Author | [facility] | | | and Primo | + + + | Organization | [facility] [...] [place], [place] | | | | | [address] | | + + + + + | Dalton Fernandez | ECON | Unknown | | + + + + + | Juana Fernandez | ECON | Unknown | | + + + + + Care Team Providers + +------+ + | Care Leaf Conditioner Name | Role | Phone | + [...] | | | | | | [place] [facility] | | | | | | [...] + + | 06/17/ | Hospital | [facility] | Douglas Nuñez MD | | | 2013 - | Encounter | MED CTR SURGICAL | [address] | | | | | [address] | [place] [address] | | | 06/19/ | | [place] [address] | [phone] | | | 2013 | | [phone] | | | +--------+ + + + [...] be different from t dontae original. [facility] NEUROSURGERY DISCHARGE SUMMARY Patient Name: Mike Fernandez [...] Discontinued Medications ibuprofen 200 mg tablet aka: ADVIL, MOTRIN ; Current Discharge Medication List START [...] MIREYA Salas - 06/18/2014 2:25 PM PST [facility] PROGRESS NOTE Pt. Name/Age/: Mike Fernandez 63 y.o. 1950 Med. Record Number: [id number] Date of admission: 06/17/2014 Subjective: The patient [...] Electronically signed by: Nino Hurst, 06/18/2014 14:25 [facility] documented in th is encounter Plan of Treatment +--------+---------+ + + + | Date | Type | Specialty | Care Team | Description | +--------+---------+ + + + | 07/22/ | Office | Orthopedic Surgery | Ramin Bess | | | 2019 | Visit | | MD Swathi Gonzalez | | | | | | [place] | | | | | | [address] | | | | | | | [...] | | | Over | | | 04/16/ | | | 2013 @ | | [...] | | Dictated and Signed by: Toy Pka MD Electronically signed: | | | 06/18/2014 [...] + | MISCELLANEOUS LAB | | | [phone] | + +---------+ + + | MISCELANIOUS LAB | | | [phone] | + +---------+ + + documented in this encounter Visit Diagnoses Not on filedocumented in this encounter Administered Medications + +--------+ +-------+------+------+ | Medication Order | MAR | Action | Dose | Rate | Site | | | Action | Date | | | | + +--------+ +-------+------+------+ | albuterol-ipratropium (DUONEB) | Given | 06/17/20 | 3 mLs | | | | 2.5-0.5 mg/3 mL nebulizer | | 14 6:00 | | | | | solution 3 mL 3 mL, | | PM PST | | | | | Nebulization, ONCE PRN, Wheezing, | | | | | | | Shortness of Breath, Starting | | | | | | | 06/17/14 at 1743, For 1 dose, | | | | | | | RT will administer., | | | | | | | Recovery/Phase I | | | | | | + +--------+ +-------+------+------+ +---+---+ | | | +---+---+ + +-------+ +---------+---+---+ | HYDROcodone-acetaminophen | Given | 06/19/20 | 2 | | | | (NORCO) 5-325 mg per tablet 1-2 | | 14 2:36 | tablets | | | | tablet 1-2 tablet, Oral, EVERY 4 | | PM PST | | | | | HOURS PRN, Pain, Starting Wed | | | | | | | 06/17/14 at 1845, If ineffective | | | | | | | use [place] 10/325 if ordered. If | | | | | | | not tolerated, use Percocet then | | | | | | | Oxycodone if ordered., | | | | | | | Post-op/Phase II | | | | | | + +-------+ +---------+---+---+ +-------+ + +---+---+ | Given | 06/19/20 | 1 tablet | | | | | 14 9:04 | | | | | | AM PST | | | | +-------+ + +---+---+ | Given | 06/19/20 | 1 tablet | | | | | 14 6:48 | | | | | | AM PST | | | | +-------+ + +---+---+ +---+---+ | | | +---+---+ + +---------+ +----+---+---+ | lactated ringers (LR) infusion | New Bag | 06/17/20 | mL | | | | at 100 mL/hr, Intravenous, | | 14 5:35 | | | | | CONTINUOUS, Starting Sun06/17/14 | | PM PST | | | [...] | | +---+---+ + +-------+ +-------+---+---+ | loratadine (CLARITIN) tablet 10 | Given | 06/19/20 | 10 mg | | | | mg 10 mg, Oral, DAILY, First | | 14 8:59 | | | | | dose on Sun06/17/14 at 1915, | | AM PST | | | | | Post-op/Phase II | | | | | | + +-------+ +-------+---+---+ +-------+ +-------+---+---+ | Given | 06/18/20 | 10 mg | | | | | 14 8:56 | | | | | | AM PST | | | | +-------+ +-------+---+---+ | Given | 06/17/20 | 10 mg | | | | | 14 8:02 | | | | | | PM PST | | | | +-------+ +-------+---+---+ +---+---+ | | | +---+---+ + +-------+ +-------+---+---+ | minocycline (MINOCIN,DYNACIN) | Given | 06/19/20 | 50 mg | | | | capsule 50 mg 50 mg, Oral, | | 14 8:59 | | | | | DAILY, First dose on Sun06/17/14 | | AM PST | | | | | at 1915, Post-op/Phase II | | | | | | + +-------+ +-------+---+---+ +-------+ +-------+---+---+ | Given | 06/18/20 | 50 mg | | | | | 14 8:56 | | | | | | AM PST | | | | +-------+ +-------+---+---+ +---+---+ | | | +---+---+ + +-------+ +-------+---+---+ | pantoprazole (PROTONIX) DR | Given | 06/18/20 | 40 mg | | | | tablet 40 mg 40 mg, Oral, | | 14 8:21 | | | | | NIGHTLY, First dose on Sun | | PM PST | | | | | 06/17/14 at 2100, Do not cut or | | | | | | | crush. Therapeutic Interchange | | | | | | | for omeprazole., | | | | | | + +-------+ +-------+---+---+ +-------+ +-------+---+---+ | Given | 06/17/20 | 40 mg | | | | | 14 8:02 | | | | | | PM PST | | | | +-------+ +-------+---+---+ +---+---+ | | | +---+---+ + +-------+ +------+---+---+ | pilocarpine (SALAGEN) tablet 5 | Given | 06/19/20 | 5 mg | | | | mg 5 mg, Oral, 4 TIMES DAILY, | | 14 2:33 | | | | | First dose on Sun06/17/14 at | | PM PST | | | | | 2100, Post-op/Phase II | | | | | | + +-------+ +------+---+---+ +-------+ +------+---+---+ | Given | 06/19/20 | 5 mg | | | | | 14 8:59 | | | | | | AM PST | | | | +-------+ +------+---+---+ | Given | 06/18/20 | 5 mg | | | | | 14 8:21 | | | | | | PM PST | | | | +-------+ +------+---+---+ +---+---+ [...] +-----+-------+---+ +---+---+ | | | +---+---+ + +---------+ +-----+-------+---+ | vancomycin 1 g in sodium | New Bag | 06/18/20 | 1 g | 250 | | | chloride 0.9% 250 mL IVPB 1 g, | | 14 1:41 | | mL/hr | | | Intravenous, Administer over 60 | | AM PST | | | | | Minutes, EVERY 12 HOURS INTERVAL, | | | | | | | First dose on Kathi 06/18/14 at | | | | | | | 0200, For 1 dose, Start 12 hours | | | | | | | after previous dose. Last dose | | | | | | | to be given within 24 hours of | | | | | | | surgery end time. Activate system | | | | | | | and mix before use., | | | | | | | Post-op/Phase II | | | | | | + +---------+ +-----+-------+---+ +---+---+ | | | +---+---+ documented in this encounter
--- OUTSIDE RECORDS SUMMARY | ~2019-07-02 | XMS | Encounter Summary ---
Demographics + + + | Address | [address] | | | [place] [address] | + + + | Home Phone | | + + + | Preferred Language | Unknown | + + + | Marital Status | | + + + | Mormon Affiliation | 1076 | + + + | Race | Unknown | + + + | Ethnic Group | Unknown | + + + Author + + + | Author | [facility] | | | and Primo | + + + | Organization | [facility] [...] [place], [place] | | | | | [address] | | + + + + + | Dalton Koroma | ECON | Unknown | | + + + + + | Juana Koroma | ECON | Unknown | | + + + + + Care Team Providers + +------+ + | Care Crna Name | Role | Phone | + [...] + + | 11/06/ | Office | [facility] | Ramin Huggins | S/P orthopedic | | 2017 | Visit | ORTHOPEDIC SURGERY | MD Swathi Gonzalez | surgery, follow-up | | | | [address] [facility] | [place] | exam (Primary Dx) | | | | [place] | [address] | | | | | [address] | | | | | | [phone] | | | +--------+---------+ + + + [...] - 11/06/2016 5:54 PM PDTSejude soap note [id number].Electronically dakota d by Ramin Huggins MD at 11/06/2016 5:54 PM PDTHenRamin fierro MD - 11/06/2016 5:53 PM PDT [facility] ORTHOPEDIC SURGERY [address] [place] [id number] OFFICE NOTE RAMIN HUGGINS MD Patient: MYRIAM KOROMA Admitting: MR #: [id number] LOC: PT TYPE: Adm Date: 11/06/2016 : 1950 Myriam returns today for followup of her left distal thigh surgery, which included open red uction and internal fixation of a displaced unstable comminuted left periprosthetic supraco ndylar femur fracture utilizing a 13 mm diameter x 320 mm long [employer] retrograde femoral n ail with a 60 [...] Transcribed on 11/07/2016 16:12:52 by reynaldo job# [id number] Confirmation #: [id number] cc: DUTCH LUISANAJULIA DO documented in this [...]
--- OUTSIDE RECORDS SUMMARY | ~2019-07-02 | XMS | Encounter Summary ---
Demographics + + + | Address | [address] | | | [place] [address] | + + + | Home Phone | | + + + | Preferred Language | Unknown | + + + | Marital Status | | + + + | Yazidi Affiliation | 1076 | + + + | Race | Unknown | + + + | Ethnic Group | Unknown | + + + Author + + + | Author | [facility] | | | and Primo | + + + | Organization | [facility] | | | and [place] [...] [place], [place] | | | | | [address] | | + + + + + | Dalton Fernandez | ECON | Unknown | | + + + + + | Juana Fernandez | ECON | Unknown | | + + + + + Care Team Providers + +------+ + | Care Recreation Counselor Name | Role | Phone | + [...] + + | 04/13/ | Office | [facility] | Zachery Soria | Status post total | | 2016 | Visit | ORTHOPEDIC SURGERY | [address] | knee replacement, | | | | [address] [facility] | Josué Young | left (Primary Dx) | | | | [place] | [place] [address] | | | | | [address] | [phone] | | | | | [phone] | | | +--------+---------+ + + + [...] been up to 125 of flexion at [facility] in [facility]. She is only taking anti-inflammatory's as necessary [...] for pain. Continue with physical therapy in [facility]; she has 5 r emaining visits left. I'll have her follow-up in approximately 4 weeks for reevaluation. B. Patient is advised that if they have any questions, comments or concerns to contact our office. Electronically signed by: Zachery Soria PA-C 04/13/2016 13:50 This note was dictated using the [employer] voice recognition system. Minor errors in grammar may have occurred. documented in th is encounter Plan of Treatment +--------+---------+ + + + | Date | Type | Specialty | Care Team | Description | +--------+---------+ + + + | 07/22/ | Office | Orthopedic Surgery | Ramin Bess | | | 2019 | Visit | | MD Lisa [address] [place] [address] | | | | | | [place] [...]
--- OUTSIDE RECORDS SUMMARY | ~2019-07-02 | XMS | Encounter Summary ---
Demographics + + + | Address | [address] | | | [place] [address] | + + + | Home Phone | | + + + | Preferred Language | Unknown | + + + | Marital Status | | + + + | Taoist Affiliation | 1076 | + + + | Race | Unknown | + + + | Ethnic Group | Unknown | + + + Author + + + | Author | [facility] | | | and Primo | + + + | Organization | [facility] | | | and [place] [...] [place], [place] | | | | | [address] | | + + + + + | Dalton Fernandez | ECON | Unknown | | + + + + + | Juana Fernandez | ECON | Unknown | | + + + + + Care Team Providers + +------+ + | Care Data Analyst Name | Role | Phone | + +------+ + | Dutch Rodriguez DO | PCP | | + +------+ + Encounter Details +--------+ + + + + | Date | Type | Department | Care Team | Description | +--------+ + + + + | 03/13/ | Hospital | [facility] | Douglas Nuñez MD | Back pain | | 2013 | Encounter | MED CTR XRAY [address] | | | | | [address] | [place] [address] | | | | | [place] [address] | [phone] | | | | | [phone] | | | +--------+ + + + [...] [place] | | | | | | [address] | | | | | | | | +--------+---------+ + + + documented as of this encounter Procedures + +--------+ + + + | Procedure Name | Priori | Date/Time | Associated Diagnosis | Comments | | | ty | | | | + +--------+ + + + | XR SPINE SURVEY 2 OR | Routin | 03/13/2014 | Back pain | Results for this | | 3 VIEWS | e | 9:59 AM | | procedure are in the | | | | PDT | | results section. | + +--------+ + + + documented in this encounter Results XR Spine Survey AP and Lateral (03/13/2014 9:59 AM PDT) + + | Specimen | + + | | + + + + + | Narrative | Performed At | + + + | [facility] 03/13/2014 9:59 AM CLINICAL HISTORY: | MISCELANIOUS | | back pain COMPARISON: LUMBAR MRI DECEMBER 03, 2013 FROM [facility] | LAB | | HOSPITAL FINDINGS: [...] painCOMPARISON: LUMBAR MRI DECEMBER 03, 2013 FROM [facility] | | HOSPITALFINDINGS: AP, lateral bending and [...] + | MISCELLANEOUS LAB | | | [phone] | + +---------+ + + | MISCELANIOUS LAB | | | [phone] | + +---------+ + + documented in this encounter Visit Diagnoses + + | Diagnosis | + + | Back pain Backache, unspecified | + + documented in this encounter"
--- OUTSIDE RECORDS SUMMARY | ~2019-07-02 | XMS | Encounter Summary ---
Demographics + + + | Address | [address] | | | [place] [address] | + + + | Home Phone | | + + + | Preferred Language | Unknown | + + + | Marital Status | | + + + | Lutheran Affiliation | 1076 | + + + | Race | Unknown | + + + | Ethnic Group | Unknown | + + + Author + + + | Author | [facility] | | | and Primo | + + + | Organization | [facility] | [...] [place], [place] | | | | | [address] | | + + + + + | Dalton Fernandez | ECON | Unknown | | + + + + + | Juana Fernandez | ECON | Unknown | | + + + + + Care Team Providers + +------+ + | Care Arborist Name | Role | Phone | + +------+ + | Dutch Rodriguez DO | PCP | | + +------+ + Reason for Visit +--------+ + | Reason | Comments | +--------+ + | Other | | +--------+ + Encounter Details +--------+ + + + + | Date | Type | Department | Care Team | Description | +--------+ + + + + | 09/06/ | Telephone | [facility] | Ramin Bess | Other | | 2019 | | ORTHOPEDIC SURGERY | MD Lisa [address] [facility] | | | | | [address] [facility] | [place], [place] | | | | | [place], [place] | [address] | | | | | [address] | | | | | | [phone] | | | +--------+ + + + [...]
--- OUTSIDE RECORDS SUMMARY | ~2019-07-02 | XMS | Encounter Summary ---
Demographics + + + | Address | [address] | | | [place] [address] | + + + | Home Phone [...] | [facility] | | | and Primo | + + + | Organization | [facility] | | [...] [place], [place] | | | | | [address] | | + + + + + | Dalton Fernandez | ECON | Unknown | | + + + + + | Juana Fernandez | ECON | Unknown | | + + + + + Care Team Providers + +------+ + | Care Head Of Sales Name | Role | Phone | + +------+ + | Dutch Rodriguez DO | PCP | | + +------+ + Reason for Visit + + + | Reason | Comments | + + + | Medication Refill | | + + + Encounter Details +--------+--------+ + + + | Date | Type | Department | Care Team | Description | +--------+--------+ + + + | 02/20/ | Refill | [facility] | Ramin Bess | Medication Refill | | 2016 | | ORTHOPEDIC SURGERY | MD Lisa [address] [facility] | | | | | [address] [facility] | [place] | | | | | [place] | [address] | | | | | [address] | | | | | | [phone] | | | +--------+--------+ + + + Social History + +-------+ [...] [place] | | | | | | [address] | | | | | | | | +--------+---------+ + + + documented as of this encounter Visit Diagnoses Not on filedocumented in this encounter"
--- OUTSIDE RECORDS SUMMARY | ~2019-07-02 | XMS | Encounter Summary ---
Demographics + + + | Address | [address] | | | [place] [address] | + + + | Home Phone | | + + + | Preferred Language | Unknown | + + + | Marital Status | | + + + | Anglican Affiliation | 1076 | + + + | Race | Unknown | + + + | Ethnic Group | Unknown | + + + Author + + + | Author | [facility] | | | and Primo | + + + | Organization | [facility] | | | and [...] [place], [place] | | | | | [address] | | + + + + + | Dalton Fernandez | ECON | Unknown | | + + + + + | Juana Fernandez | ECON | Unknown | | + + + + + Care Team Providers + +------+ + | Care Web Design Intern Name | Role | Phone | + [...] [address] | | | | | [facility] [address] | [place] [address] | | | | | [place] | [phone] | | | | | [address] | | | | | | [phone] | | | +--------+ + + + [...] [place] | | | | | | [id number] | | | | | | | | +--------+---------+ + + + documented as of this encounter Visit Diagnoses Not on filedocumented in this encounter"
--- OUTSIDE RECORDS SUMMARY | ~2019-07-02 | XMS | Encounter Summary ---
Demographics + + + | Address | [address] | | | [place] [address] | + + + | Home Phone | | + + + | Preferred Language | Unknown | + + + | Marital Status | | + + + | Yarsani Affiliation | 1076 | + + + | Race | Unknown | + + + | Ethnic Group | Unknown | + + + Author + + + | Author | [facility] | | | and Primo | + + + | Organization | [facility] | | | and [place] [...] [place], [place] | | | | | [address] | | + + + + + | Dalton Fernandez | ECON | Unknown | | + + + + + | Juana Fernandez | ECON | Unknown | | + + + + + Care Team Providers + +------+ + | Care Laborer Ammunition Assembly Name | Role | Phone | + +------+ + | Dutch Rodriguez DO | PCP | | + +------+ + Encounter Details +--------+ + + + + | Date | Type | Department | Care Team | Description | +--------+ + + + + | 11/28/ | Hospital | [facility] | Ramin Bess | Closed left | | 2017 | Encounter | MED CTR FABIAN XRAY | MD Lisa [address] [facility] | subtrochanteric | | | | [address] | [place] | femur fracture, | | | | [place] | [address] | initial encounter | | | | [address] | | ([facility]) | | | | [phone] | | | +--------+ + + + [...] | Visit | | MD Swathi Gonzalez [facility] | | | | | | [place] | | | | | | [address] | | | | | | | [...] Outside study dated October 22, 2016. | [facility] | | Intraoperative images October 23, 2016. [...] ST[address] | [address] | [place], [place] | [phone] | | [facility] | | [address] | | | - IMAGING | | | | + + + + + documented in this encounter Visit Diagnoses + + | Diagnosis | + + | Closed left subtrochanteric femur fracture, initial encounter (HCC) | + + documented in this encounter"
--- OUTSIDE RECORDS SUMMARY | ~2019-07-02 | XMS | Encounter Summary ---
Demographics + + + | Address | [address] | | | [place] [address] | + + + | Home Phone | | + + + | Preferred Language | Unknown | + + + | Marital Status | | + + + | Holiness Affiliation | 1076 | + + + | Race | Unknown | + + + | Ethnic Group | Unknown | + + + Author + + + | Author | [facility] | | | and Primo | + + + | Organization | [facility] [...] [place], [place] | | | | | [address] | | + + + + + | Dalton Fernandez | ECON | Unknown | | + + + + + | Juana Fernandez | ECON | Unknown | | + + + + + Care Team Providers + +------+ + | Care Building Carpenter Name | Role | Phone | + +------+ + | Dutch Rodriguez DO | PCP | | + +------+ + Encounter Details +--------+ + + + + | Date | Type | Department | Care Team | Description | +--------+ + + + + | 02/22/ | Orders Only | [facility] | Zachery Soria | Status post total | | 2015 | | ORTHOPEDIC SURGERY | [address] | knee replacement, | | | | [address] [facility] | [facility] | left (Primary Dx) | | | | [place] | [place] [address] | | | | | [address] | [phone] | | | | | [phone] | | | +--------+ + + + [...] [place] | | | | | | [address] | | | | | | | [...] | [address] | [address] | [place] | [phone] | | [facility] | | [address] | | | - IMAGING | | | | + + + + + documented in this encounter Visit Diagnoses + + | Diagnosis | + + | Status post total knee replacement, left - Primary | + + documented in this encounter"
--- OUTSIDE RECORDS SUMMARY | ~2019-07-02 | XMS | Encounter Summary ---
Demographics + + + | Address | [address] | | | [place] [address] | + + + | Home Phone | | + + + | Preferred Language | Unknown | + + + | Marital Status | | + + + | Sikh Affiliation | 1076 | + + + | Race | Unknown | + + + | Ethnic Group | Unknown | + + + Author + + + | Author | [facility] | | | and Primo | + + + | Organization | [facility] | | | and [place] [...] [place], [place] | | | | | [address] | | + + + + + | Dalton Fernandez | ECON | Unknown | | + + + + + | Juana Fernandez | ECON | Unknown | | + + + + + Care Team Providers + +------+ + | Care Wet Primer Powder Blender Name | Role | Phone | + +------+ + | Dutch Rodriguez DO | PCP | | + +------+ + Encounter Details +--------+ + + + + | Date | Type | Department | Care Team | Description | +--------+ + + + + | 12/08/ | [facility] | [facility] | Ramin Bess | Bilateral knee pain | | 2015 | Encounter | MED CTR FABIAN XRAY | MD Lisa [address] [facility] | | | | | [address] | [place] | | | | | [place] | [address] | | | | | [address] | | | | | | [phone] | | | +--------+ + + + [...] [place] | | | | | | [id number] | | | | | | | [...] + + | Performing | Address | City/State[facility] | Phone Number | | Organization | | | | + + + + + | [address] | [address] | [place] | [phone] | | [facility] | | [address] | | | - IMAGING | | | | + + + + + documented in this encounter Visit Diagnoses + + | Diagnosis | + + | Bilateral knee pain Pain in joint, lower leg | + + documented in this encounter"
--- OUTSIDE RECORDS SUMMARY | ~2019-07-02 | XMS | Encounter Summary ---
Demographics + + + | Address | [address] | | | [place] [address] | + + + | Home Phone | | + + + | Preferred Language | Unknown | + + + | Marital Status | | + + + | Mormonism Affiliation | 1076 | + + + | Race | Unknown | + + + | Ethnic Group | Unknown | + + + Author + + + | Author | [facility] | | | and Primo | + + + | Organization | [facility] | | | and [place] [...] [place], [place] | | | | | [address] | | + + + + + | Dalton Fernandez | ECON | Unknown | | + + + + + | Juana Fernandez | ECON | Unknown | | + + + + + Care Team Providers + +------+ + | Care Prop And Effects Designer Name | Role | Phone | + +------+ + | Dutch Rodriguez DO | PCP | | + +------+ + Reason for Visit + + + | Reason | Comments | + + + | Paperwork | Disabled parking | + + + Encounter Details +--------+ + + + + | Date | Type | Department | Care Team | Description | +--------+ + + + + | 10/31/ | Telephone | [facility] | Ramin Bess | Paperwork (Disabled | | 2017 | | ORTHOPEDIC SURGERY | MD Lisa [address] [place] [address] | parking) | | | | [address] [place] [address] | [place] | | | | | [place] | [address] | | | | | [address] | | | | | | [phone] | | | +--------+ + + + [...]
--- OUTSIDE RECORDS SUMMARY | ~2019-07-02 | XMS | Encounter Summary ---
Demographics + + + | Address | [address] | | | [place] [address] | + + + | Home Phone [...] Author | [facility] | | | and Primo | + + + | Organization | [facility] | | | and [...] [place], [place] | | | | | [address] | | + + + + + | Dalton Fernandez | ECON | Unknown | | + + + + + | Juana Fernandez | ECON | Unknown | | + + + + + Care Team Providers + +------+ + | Care Motion Graphics Artist Name | Role | Phone | [...] + + | 09/03/ | Telephone | [facility] | Ramin Bess | New Medication | | 2017 | | ORTHOPEDIC SURGERY | MD Lisa [address] [facility] | Request | | | | [address] [facility] | [place] | | | | | [place] | [address] | | | | | [address] | | | | | | [phone] | | | +--------+ + + + [...] [place] | | | | | | [id number] | | | | | | | | +--------+---------+ + + + documented as of this encounter Visit Diagnoses Not on filedocumented in this encounter"
--- OUTSIDE RECORDS SUMMARY | ~2019-07-02 | XMS | Encounter Summary ---
Demographics + + + | Address | [address] | | | [place] [address] | + + + | Home Phone | | + + + | Preferred Language | Unknown | + + + | Marital Status | | + + + | Caodaism Affiliation | 1076 | + + + | Race | Unknown | + + + | Ethnic Group | Unknown | + + + Author + + + | Author | [facility] | | | and Primo | + + + | Organization | [facility] | | | [...] [place], [place] | | | | | [address] | | + + + + + | Dalton Fernandez | ECON | Unknown | | + + + + + | Juana Fernandez | ECON | Unknown | | + + + + + Care Team Providers + +------+ + | Care Scrap Bunch Maker Name | Role | Phone | + +------+ + | Dutch Rodriguez DO | PCP | | + +------+ + Encounter Details +--------+ + + + + | Date | Type | Department | Care Team | Description | +--------+ + + + + | 11/01/ | [facility] | [facility] | Michelle Whitfield, PT | | | 2016 | Encounter | MED CTR ACUTE | | | | | | PHYSICAL THERAPY | | | | | | [address] | | | | | | [place] [address] | | | | | | [phone] | | | +--------+ + + + [...] mg into both | | 0 | // | | | cellulose | eyes Daily. [...] [place] | | | | | | [address] | | | | | | | | +--------+---------+ + + + documented as of this encounter Visit Diagnoses Not on filedocumented in this encounter"
--- OUTSIDE RECORDS SUMMARY | ~2019-07-02 | XMS | Encounter Summary ---
Demographics + + + | Address | [address] | | | [place] [address] | + + + | Home Phone [...] Author | [facility] | | | and Primo | + + + | Organization | [facility] | | | [...] [place], [place] | | | | | [address] | | + + + + + | Dalton Fernandez | ECON | Unknown | | + + + + + | Juana Fernandez | ECON | Unknown | | + + + + + Care Team Providers + +------+ + | Care Optical Glass Inspector Name | Role | Phone | + +------+ + | Dutch Rodriguez DO | PCP | | + +------+ + Encounter Details +--------+ + + + + | Date | Type | Department | Care Team | Description | +--------+ + + + + | 03/13/ | Hospital | [facility] | Douglas Nuñez MD | Back pain | | 2013 | Encounter | MED CTR XRAY [address] | | | | | [address] | [place] [address] | | | | | [place] [address] | [phone] | | | | | [phone] | | | +--------+ + + + [...] [place] | | | | | | [address] | | | | | | | [...] COMPARISON: LUMBAR MRI DECEMBER 03, 2013 FROM [facility] | LAB | | HOSPITAL FINDINGS: [...] painCOMPARISON: LUMBAR MRI DECEMBER 03, 2013 FROM [facility] | | HOSPITALFINDINGS: AP, lateral bending [...] + | Performing | Address | City/[facility] | Phone Number | | Organization | | | | + +---------+ + + | MISCELLANEOUS LAB | | | [phone] | + +---------+ + + | MISCELANIOUS LAB | | | [phone] | + +---------+ + + documented in this encounter Visit Diagnoses + + | Diagnosis | + + | Back pain Backache, unspecified | + + documented in this encounter"
--- OUTSIDE RECORDS SUMMARY | ~2019-07-02 | XMS | Encounter Summary ---
Demographics + + + | Address | [address] | | | [place] [address] | + + + | Home Phone | | + + + | Preferred Language | Unknown | + + + | Marital Status | | + + + | Scientology Affiliation | 1076 | + + + | Race | Unknown | + + + | Ethnic Group | Unknown | + + + Author + + + | Author | [facility] | | | and Primo | + + + | Organization | [facility] | | | and [place] [...] [place], [place] | | | | | [address] | | + + + + + | Dalton Fernandez | ECON | Unknown | | + + + + + | Juana Fernandez | ECON | Unknown | | + + + + + Care Team Providers + +------+ + | Care Enterprise Security Architect Name | Role | Phone | + [...] Description | +--------+--------+ + + + | 08/09/ | Refill | [facility] | Ramin Bess | Medication Refill | | 2015 | | ORTHOPEDIC SURGERY | MD Lisa [address] [facility] | | | | | [address] [facility] | [place] | | | | | [place] | [address] | | | | | [address] | | | | | | [phone] | | | +--------+--------+ + + + [...] [place] | | | | | | [address] | | | | | | | | +--------+---------+ + + + documented as of this encounter Visit Diagnoses Not on filedocumented in this encounter"
--- OUTSIDE RECORDS SUMMARY | ~2019-07-02 | XMS | Encounter Summary ---
Demographics + + + | Address | [address] | | | [place] [address] | + + + | Home Phone | | + + + | Preferred Language | Unknown | + + + | Marital Status | | + + + | Anglican Affiliation | 1076 | + + + | Race | Unknown | + + + | Ethnic Group | Unknown | + + + Author + + + | Author | [facility] | | | and Primo | + + + | Organization | [facility] | | | and [...] [place], [place] | | | | | [address] | | + + + + + | Dalton Fernandez | ECON | Unknown | | + + + + + | Juana Fernandez | ECON | Unknown | | + + + + + Care Team Providers + +------+ + | Care Foreign Legal Consultant Name | Role | Phone | + +------+ + | Dutch Rodriguez DO | PCP | | + +------+ + Encounter Details +--------+ + + + + | Date | Type | Department | Care Team | Description | +--------+ + + + + | 12/08/ | [facility] | [facility] | Ramin Bess | Bilateral knee pain | | 2015 | Encounter | MED CTR FABIAN XRAY | MD Lisa [address] [facility] | | | | | [address] | [place] | | | | | [place] | [address] | | | | | [address] | | | | | | [phone] | | | +--------+ + + + [...] 2019 | Visit | | MD Lisa [facility] | | | | | | [place] | | | | | | [address] | | | | | | | | +--------+---------+ + + + documented as of this encounter Procedures + +--------+ + + + | Procedure Name | Priori | Date/Time | Associated Diagnosis | Comments | | | ty | | | | + +--------+ + + + | XR KNEE RIGHT 1 - 2 | Routin | 12/08/2014 | Bilateral knee | Results for this | | VW | e | 2:26 PM | pain | procedure are in the | | | | PDT | | results section. | + +--------+ + + + documented in this encounter Results XR Knee Right 1 [...] + + | Performing | Address | City/State/[facility] | Phone Number | | Organization | | | | + + + + + | [address] | [address] | [place] | [phone] | | [facility] | | [address] | | | - IMAGING | | | | + + + + + documented in this encounter Visit Diagnoses + + | Diagnosis | + + | Bilateral knee pain Pain in joint, lower leg | + + documented in this encounter"
--- OUTSIDE RECORDS SUMMARY | ~2019-07-02 | XMS | Encounter Summary ---
Demographics + + + | Address | [address] | | | [place] [address] | + + + | Home Phone | | + + + | Preferred Language | Unknown | + + + | Marital Status | | + + + | Temple Affiliation | 1076 | + + + | Race | Unknown | + + + | Ethnic Group | Unknown | + + + Author + + + | Author | [facility] | | | and Primo | + + + | Organization | [facility] | | | [...] [place], [place] | | | | | [address] | | + + + + + | Dalton Koroma | ECON | Unknown | | + + + + + | Juana Koroma | ECON | Unknown | | + + + + + Care Team Providers + +------+ + | Care Global Marketing Specialist Name | Role | Phone | [...] + + | 12/26/ | Office | [facility] [place] | Ramin Huggins | S/P orthopedic | | 2017 | Visit | ORTHOPEDIC SURGERY | MD Swathi Gonzalez | surgery, follow-up | | | | [address] [facility] | [place] | exam (Primary Dx) | | | | [place] | [address] | | | | | [address] | | | | | | [phone] | | | +--------+---------+ + + + [...] MD - 12/26/2016 6:50 PM PDT [facility] ORTHOPEDIC SURGER Y [address] [facility] [address] OFFICE NOTE RAMIN HUGGINS MD Patient: MYRIAM KOROMA Admitting: MR #: [id number] LOC: PT TYPE: Adm Date: 12/26/2016 : [...] Transcribed on 12/27/2016 16:34:04 by nimesh job# [id number] Confirmation #: [id number] cc: DUTCH VALENCIA DO Ramin Ureña MD - 12/26/2016 11:30 AM PDTSee soap note [id number].Electronically si gned by Ramin Huggins MD at 12/26/2016 6:50 PM PDTdocumented in this encounter Plan of Treatment +--------+---------+ + + + | Date | Type | Specialty | Care Team | Description | +--------+---------+ + + + | 07/22/ | Office | Orthopedic Surgery | Ramin Huggins | | | 2019 | Visit | | MD Lisa [address] [place] [address] | | | | | | [place] | | | | | | [address] | | | | | | | | +--------+---------+ + + + documented as of this encounter Visit Diagnoses + + | Diagnosis | + + | S/P orthopedic surgery, follow-up exam - Primary Follow-up examination, following | | other surgery | + + documented in this encounter
--- OUTSIDE RECORDS SUMMARY | ~2019-07-02 | XMS | Encounter Summary ---
Demographics + + + | Address | [address] | | | [place] [address] | + + + | Home Phone | | + + + | Preferred Language | Unknown | + + + | Marital Status | | + + + | Restorationist Affiliation | 1076 | + + + | Race | Unknown | + + + | Ethnic Group | Unknown | + + + Author + + + | Author | [facility] | | | and Primo | + + + | Organization | [facility] | | | and [place] [...] [place], [place] | | | | | [address] | | + + + + + | Dalton Koroma | ECON | Unknown | | + + + + + | Juana Koroma | ECON | Unknown | | + + + + + Care Team Providers + +------+ + | Care Environmental Health Safety Manager Name | Role | Phone | [...] + + | 11/28/ | Office | [facility] | Ramin Huggins | S/P orthopedic | | 2016 | Visit | ORTHOPEDIC SURGERY | MD Lisa [address] [place] [address] | surgery, follow-up | | | | [address] [facility] | [place] | exam (Primary Dx) | | | | [place] | [address] | | | | | [address] | | | | | | [phone] | | | +--------+---------+ + + + [...] - 11/28/2016 6:33 PM PDTSee soap note [id number].Electronically dakota d by Ramin Huggins MD at 11/28/2016 6:33 PM PDTRamin Huggins MD - 11/28/2016 6:33 PM PDT [facility] ORTHOP[facility]IC SURGERY [address] [place] [address] OFFICE NOTE RAMIN HUGGINS MD Patient: MYRIAM KOROMA Admitting: MR #: [id number] LOC: PT TYPE: Adm Date: 11/28/2016 : [...] Transcribed on 11/29/2016 06:17:44 by sean job# [id number] Confirmation #: [id number] cc: DUTCH VALENCIA DO documented in this encounter Plan of Treatment +--------+---------+ + + + | Date | Type | Specialty | Care Team | Description | +--------+---------+ + + + | 07/22/ | Office | Orthopedic Surgery | Ramin Huggins | | | 2019 | Visit | | MD Lisa [address] [place] [address] | | | | | | [place] | | | | | | [address] | | | | | | | | +--------+---------+ + + + documented as of this encounter Visit Diagnoses + + | Diagnosis | + + | S/P orthopedic surgery, follow-up exam - Primary Follow-up examination, following | | other surgery | + + documented in this encounter
--- OUTSIDE RECORDS SUMMARY | ~2019-07-02 | XMS | Encounter Summary ---
Demographics + + + | Address | [address] | | | [place] [address] | + + + | Home Phone | | + + + | Preferred Language | Unknown | + + + | Marital Status | | + + + | Shinto Affiliation | 1076 | + + + | Race | Unknown | + + + | Ethnic Group | Unknown | + + + Author + + + | Author | [facility] | | | and Primo | + + + | Organization | [facility] | | | and [...] [place], [place] | | | | | [address] | | + + + + + | Dalton Fernandez | ECON | Unknown | | + + + + + | Juana Fernandez | ECON | Unknown | | + + + + + Care Team Providers + +------+ + | Care Chief Warden Name | Role | Phone | + [...] | ORTHOPEDIC SURGERY | MD Swathi Gonzalez [facility] | reduction internal | | | | [address] [place] [address] | [place] | fixation) fracture | | | | [place] | [address] | (Primary Dx) | | | | [address] | | | | | | [phone] | | | +--------+ + + + [...] [place] | | | | | | [address] | | | | | | | [...]
--- OUTSIDE RECORDS SUMMARY | ~2019-07-02 | XMS | Encounter Summary ---
Demographics + + + | Address | [address] | | | [place] [address] | + + + | Home Phone [...] | Author | [facility] | | | and Primo | + + + | Organization | [facility] | | | and [place] [...] [place], [place] | | | | | [address] | | + + + + + | Dalton Fernandez | ECON | Unknown | | + + + + + | Juana Fernandez | ECON | Unknown | | + + + + + Care Team Providers + +------+ + | Care Pediatric Dentist Name | Role | Phone | + +------+ + | Dutch Rodriguez DO | PCP | | + +------+ + Reason for Visit +--------+ + | Reason | Comments | +--------+ + | Other | | +--------+ + Encounter Details +--------+ + + + + | Date | Type | Department | Care Team | Description | +--------+ + + + + | 06/26/ | Telephone | [facility] | Douglas Nuñez MD | Other | | 2013 | | NEUROSURGERY [address] | [address] | | | | | [facility] [address] | [place] [address] | | | | | [place] | [phone] | | | | | [address] | | | | | | [phone] | | | +--------+ + + + [...]
--- OUTSIDE RECORDS SUMMARY | ~2019-07-02 | XMS | Encounter Summary ---
Demographics + + + | Address | [address] | | | [place] [address] | + + + | Home Phone [...] | Author | [facility] | | | and Primo | + + + | Organization | [facility] | | | and [...] [place], [place] | | | | | [id number] | | + + + + + | Dalton Fernandez | ECON | Unknown | | + + + + + | Juana Fernandez | ECON | Unknown | | + + + + + Care Team Providers + +------+ + | Care Snack Bar Cook Name | Role | Phone | + [...] + + | Closed | Specialty | Home Health | Diagnoses | Yang, | | | | Services | Services | Status post | Zachery | | | | Required | | total right | LILIANA Wong | | | | | | knee | [address] | | | | | | replacement | [address] [place] | | | | | | | [place] | | | | | | | [address] | | | | | | | Phone: | | | | | | | [phone] | | | | | | | Fax: | | | | | | | [phone] | | +--------+ + + + + + Reason for Visit Auth/Cert +--------+--------+ + [...] | | | | | | | DE TOTAL | | | | | | [...] + + + + | 05/26/ | Hospital | [facility] | Ramin Bess | Primary | | 2015 - | Encounter | [facility] | MD Lisa [address] [facility] | osteoarthritis of | | | | [address] [place] | [place], [place] | right knee (Primary | | 05/29/ | | [place] [address] | [id number] | Dx); Status post | | 2014 | | [phone] | | total right knee | | | | | | replacement | +--------+ + + + + Social [...] + + + | Blood Pressure | 108/74 | 05/29/2015 7:03 AM | | | | | PDT | | + + + + + | Pulse | 96 | 05/29/2015 7:03 AM | | | | | PDT | | + + + + + | Temperature | 36.8 C (98.2 F) | 05/29/2015 7:03 AM | | | | | PDT | | + + + + + | Respiratory Rate | 16 | 05/29/2015 7:03 AM | | | | | PDT | | + + + + + | Oxygen Saturation | 95% | 05/29/2015 7:03 AM | | | | | PDT | | + + + + + | Inhaled Oxygen | - | - | | | Concentration | | | | + + + + + | Weight | 75.8 kg (167 lb) | 05/26/2015 6:00 AM | | | | | PDT | | + + + + + | Height | 162.6 cm (5' 4") | 05/26/2015 6:00 AM | | | | | PDT | | + + + + + | Body Mass Index | 28.67 | 05/26/2015 6:00 AM | | | | | PDT [...] documented as of this encounter Discharge Summaries Zachery Soria PA-C - 05/28/2015 4:53 PM PDTFormatting of this note might be differe nt from the original. Name: Ana Fernandez : 1950 Age: 64 y.o. Sex: female Todays Date: 05/28/2015 Dutch Rodriguez DO Date of admission: 05/26/15 Date of Discharge: 05/29/15 Admitting Physician: Dr. Ramin Bess Discharging Physician: Zachery Soria PA-C Admitting Diagnosis: No chief complaint on file. Discharge Diagnosis: Right Total Knee Arthroplasty Admitting Condition: Stable and Comfortable Discharge Condition: Comfortable. Pain well controlled. Hospital Course: Pt was admitted to [facility] for a Right knee total Arthropl asty. This surgical procedure was performed by Dr. Ramin Bess and Zachery Soria PA-C. Pt was admitted to inpatient status for recovery. They continued to progress well and be a ctively engaged with both PT and OT. Pain remains well controlled. Consults: PT, OT Labs: Filed Vitals: 05/27/15 1955 05/28/15 0035 05/28/15 0708 05/28/15 1530 BP: 110/54 104/64 105/71 124/68 Pulse: 100 103 94 102 Temp: 37.1 C (98.8 F) 37.7 C (99.9 F) 37 C (98.6 F) 37.4 C (99.3 F) TempSrc: Oral Oral Oral Oral Resp: 20 20 16 18 Height: Weight: SpO2: 96% 99% 95% 96% Treatments: No current facility-administered medications on file prior to encounter. Current Outpatient Prescriptions on File Prior to Encounter Medication Sig Dispense Refill Artificial Tear Insert (LACRISERT OP) Apply 1 drop to eye nightly. b complex vitamins tablet Take 1 tablet [...] OP) Apply 1 drop to eye nightly. fish oil 1,000 mg capsule Take 1,000 [...] capsule by mouth daily (with breakfas t). Discharge Physical Exam: Constitutional:Alert and oriented x 3, in no acute distress Head: Atraumatic and normocephalic Eyes: EOM intact bilaterally Respiratory: Non-labored respiration, no acute SOA Cardiovascular: No ankle or foot edema lower extremities Skin: Inspection of incision site reveals no erythema, induration, drainage or signs of inf ection. Limited bruising noted. Incision and knee does remain mildly swollen. Neuro: Neurovascularly intact lower extremities, bilaterally Pysch: Cooperative with exam and answers questions promptly when asked. Discharge Medications New Medications Details HYDROcodone-acetaminophen 10-325 mg per tablet Take 1-2 tablets by mouth EVERY 4 TO 6 HOURS NEEDED for Pain. aka: NORCO oxyCODONE 10 MG Tabs Take 0.5-1 tablets by mouth EVERY 4 TO 6 HOURS NEEDED. rivaroxaban 10 mg tablet Take 1 tablet by mouth Daily. aka: XARELTO Unchanged Medications Details B complex vitamins tablet Take 1 tablet [...] the morning and in the evening. cyclobenzaprine 10 mg tablet Take 1 tablet by mouth every 8 hours as needed for Muscle spasms. aka: FLEXERIL fish oil 1,000 mg capsule Take 1,000 mg by mouth 2 times daily. FLINTSTONES MULTIVITAMIN PO Take by mouth every morning. IRON PO Take by mouth in the morning and in the evening. LACRISERT OP Apply 1 drop to eye nightly. magnesium lactate 84 mg Tbcr Take 84 mg by mouth 2 times daily. aka: MAG-TAB SR minocycline 50 MG tablet Take 50 mg by mouth every morning. aka: DYNACIN omeprazole 20 mg capsule Take 20 mg by mouth nightly. aka: priLOSEC pilocarpine 5 mg tablet Take 5 mg by mouth 4 times daily. aka: SALAGEN probiotic formula capsule Take 1 capsule by mouth daily (with breakfast). REFRESH PLUS OP Apply to eye as needed. RESTASIS OP Apply 1 drop to eye nightly. Discontinued Medications aspirin 325 mg tablet EPINEPHrine 0.3 mg/0.3 mL injection aka: EPIPEN ibuprofen 200 mg tablet aka: ADVIL, MOTRIN Wound Care: Keep aquacell bandage in place; will be removed in office Diet: Regular diet Activity: activity as tolerated on affected knee Follow Up: Follow up as scheduled with Dr. Bess at office. Zachery Soria PA-C 05/28/2015. This not was dictated using [employer] Voice recognition system. There may be minor errors in grammar. documented in th is encounter Discharge Instructions Instructions Dipika Rice RN - 05/28/2015Formatting of this note might be different fro m the original. Keep appointment with Dr. Bess Office Treating Arthritis in the Foot If your symptoms are mild, medications may be enough to reduce pain and swelling. For more severe arthritis, surgery may be needed to improve the condition of the joint. Medications Your doctor may prescribe medication pills or injections to limit pain and swelling. Ic e, aspirin, or ibuprofen may help relieve mild symptoms that occur after activity. Surgery To ease movement and reduce pain, your doctor may trim damaged bone. If arthritis is severe , the joint may be fused or removed. Trimming Bone If the bone is not damaged too badly, your doctor may simply shave away bone spurs. Any exc ess bone growth related to a bunion may also be trimmed. Fusing Joints If damage is more severe, your doctor may fuse the joint to prevent the bones from rubbing. Afterward, maco or screws may hold the bones in place so they heal properly. In some placido es, the joint may be removed and replaced with an implant. After Surgery During the early stages of recovery, your foot is likely to be bandaged and immobilized for a while. For best results, follow up with your doctor as scheduled. These visits help ensur e that your foot heals properly. As You Heal After surgery, you ll be told how to care for your incision and how soon to begin walking on the foot. Until the foot can bear weight, you may need to walk with crutches or a cane. For surgery on the big toe, your foot may be splinted to limit movement for several weeks. Despite this, you should be able to walk soon after surgery. For surgery on rear or midfoot joints, you may need to wear a cast or surgical shoe. These joints are fairly large, so full recovery may take a few months. Once the bone has healed, a ny maco or screws may be removed. [employer]. [address] [place] [address]. All righ ts reserved. This information is not intended as a substitute for professional medical care. Always follow your healthcare professional's instructions. What Is Arthritis in the Foot? Degenerative arthritis is a condition that slowly wears away joints (the link where bones m eet and move). In the beginning, you may notice that the affected joint seems stiff. It may even ache. As the joint lining (cartilage) breaks down, the bones rub against each other, ca using pain and swelling. Over time, bone spurs (small pieces of rough or splintered bone) de velop, and the joint s range of motion becomes limited. But movement doesn t have to cau se pain. The effects of arthritis can be reduced. The Big-Toe Joint When arthritis affects your big toe, your foot hurts when it pushes off the ground. Arthrit is often appears in the big-toe joint along with a bunion (a bony bump at the side of the bull int) or a bone spur on top of the joint. Other Joints When arthritis affects the rear or midfoot joints, you feel pain when you put weight on you r foot. Arthritis may affect the joint where the ankle and foot meet. It may also affect oth er joints nearby. [employer]. [address] [place] [address]. All righ ts reserved. This information is not intended as a substitute for professional medical care. Always follow your healthcare professional's instructions. Treating Tendonitis of the Foot Your doctor s first concern is to reduce your symptoms. Using ice and heat, taking medica tions, and limiting activity help control pain and swelling. Follow all of your doctor s i nstructions. Returning to activity too soon may cause your symptoms to come back. Ice and Heat Ice helps prevent swelling and reduce pain. Place ice on the painful area for10 minutes. Repeat the icing several times a day. If ?you have had the problem for a while, using heat m ay help. Apply a heating pad or hot towels to the tendon for30 minutes two or three times a day. Medications Your doctor may tell you to take ibuprofen or other anti-inflammatory medications. These re duce pain and swelling. Take them as directed. Don t wait until you feel pain. In more sev ere cases, cortisone may be injected to relieve pain. Limiting Activities Rest allows the tissues in your foot to heal. Stay off your feet for a few days, then slowl y work back into activity. If you do high-impact activities, such as running or aerobics, tr y other activities that place less strain on your foot. Cycling and swimming are good choice s. [id number] [employer]. [address] [place] [address], [place] [address]. All righ ts reserved. This information is not intended as a substitute for professional medical care. Always follow your healthcare professional's instructions. Osteoarthritis Osteoarthritis (also called Degenerative Joint Disease ) is the most common form of ar thritis in adults over 50. It is not the same as Rheumatoid Arthritis. The exact cause is not known but may be related to excess wear and tear on the joint over a long period of time. Prior injury to that joint, or repeated stress on a joint can al so cause this type of arthritis. Osteoarthritis most often affects the hands, knees, spine a nd hips (in that order). The most common symptoms are joint stiffness, pain and swelling. Home Care: When a joint is more sore than usual, rest that joint for a day or two. Heat is very helpful. This can be provided by taking hot baths, applying a heating pad f or up to 30 minutes at a time. Because symptoms are usually worse in the morning, many patie nts like to take a hot bath just after awakening to relax the muscle and soothe the joints. Exercise is the most important part of home treatment for osteoarthritis. This prevents the muscles and ligaments around the joint from becoming weak and helps maintain the full ra nge of joint motion. This limits further damage to the joint. If you are overweight, this puts a lot of extra strain on weight-bearing joints of the l ower back, hips, knees, feet and ankles. Losing weight will improve your arthritis symptoms in these joints. Talk to your doctor about a safe and effective weight loss program for your self. Anti-inflammatory medicine such as ibuprofen (Advil, Motrin) or naproxen (Aleve) is ofte n used to treat this condition. If this alone is not helping, your doctor may prescribe a st ronger medicine. If opioid pain medicines have been prescribed, they should be used in addit ion to anti-inflammatory drugs and only for severe pain. Follow Up with your doctor as advised by our staff. Get Prompt Medical Attention if any of the following occur: Redness or swelling of a painful joint Fever of 100.4F (38C) or higher, or as directed by your healthcare provider Worsening joint pain [employer]. [address] [place] [id number]. All righ ts reserved. This information is not intended as a substitute for professional medical care. Always follow your healthcare professional's instructions. What Is Arthritis? Arthritis is a disease that affects the joints (the parts where bones meet and move). It ca n affect any joint in your body. There are many types of arthritis, including osteoarthritis and rheumatoid arthrtitis.If your symptoms are mild, medications may be enough to reduce pain and swelling. For more severe arthritis, surgery may be needed to improve the condition of the joint. What Causes Arthritis? Cartilage is a smooth substance that protects the ends of your bones. When you have arthrit is, this cartilage breaks down and can no longer protect your bones. The bones rub against e ach other, causing pain and swelling. Over time, bone spurs (small pieces of rough or splint ered bone) may develop, and the joint's range of motion can become limited. Symptoms Some of the more common symptoms of arthritis include: Joint pain and stiffness. Pain and stiffness get worse with long periods of rest or usin g a joint too long or too hard. Joints that have lost normal shape and motion. Tender, inflamed joints. They may look red and feel warm. Grinding or popping noise with joint movement. Feeling tired all the time. Reducing Symptoms Following a healthy lifestyle by losing weight and exercising can help reduce symptoms of o steoarthritis. Medications can be very helpful for rheumatoid arthritis. [employer]. [address] [place] [id number]. All righ ts reserved. This information is not intended as a substitute for professional medical care. Always follow your healthcare professional's instructions. AttachmentsThe following attachments cannot be sent through Care Everywhere.KNEE REPLACEMEN T, AFTER: HOSPITAL RECOVERY (KOSOVAN)KNEE REPLACEMENT, AFTER: KEEPING YOUR KNEE HEALTHY (TALIA PEDRAZA)KNEE REPLACEMENT, AFTER: RIGHT AFTER SURGERY (KOSOVAN)documented in this encounter Medications at Time of [...] documented as of this encounter Progress Notes Dipika Rice RN - 05/29/2015 11:22 AM PDTPt ambulating to BR using walker. Steady gait. Tylenol 650 mg po given for right knee pain this am with good relief. Pt denied need of any additional pain medication. Voiding without difficulty. BM x 1 this am. Dressing to right k nee dry and intact. No numbness or tinglings. Daughter at bedside. Discharge instructions gi nnamdi to pt and pt's daughter. Verbalized understanding. Care note on Xeralto given to pt. Pt Project red. Notified pharmacy. Discharge home. Rx for pain medication, Xeralto and Rx for P T given to pt. Marisol Odonnell PA-C - 05/29/2015 7:18 AM PDTFormatting of this note might be different from t he original. Name:Ana Fernandez Todays Date: 05/29/2015 SUBJECTIVE: Comfortable this am. States minimal pain in her right knee. Current pain level rated 4/10 OBJECTIVE: Stable. Awake upon entering room. On CPM machine. Neurovascularly intact right distal ext remity. Vitals normal. Vitals with Comments 05/28/2015 05/28/2015 05/28/2015 05/29/2015 SYSTOLIC 124 146 137 108 DIASTOLIC 68 72 61 74 Pulse 102 109 108 96 Temp 99.3 97.9 97.2 98.2 Resp 18 18 18 16 Weight - - - - Height - - - - SPO2 96 99 97 95 BMI - - - - Pain Score - - - - Pain Loc - - - - Pain Edu? - - - - I/O last 3 completed shifts: In: 3440 [P.O.:3440] Out: 5600 [Urine:5600] Filed Vitals: 05/28/15 1530 05/28/15 1945 05/28/15 2340 05/29/15 0703 BP: 124/68 146/72 137/61 108/74 Pulse: 102 109 108 96 Temp: 37.4 C (99.3 F) 36.6 C (97.9 F) 36.2 C (97.2 F) 36.8 C (98.2 F) TempSrc: Oral Oral Oral Oral Resp: 18 18 18 16 Height: Weight: SpO2: 96% 99% 97% 95% No results found for this or any previous visit (from the past 24 hour(s)). Patient Reported Taking Dosage Artificial Tear Insert (LACRISERT OP) (Taking) Apply 1 drop to eye nightly. Number of times this order has been changed since signin Order Audit [place] b complex vitamins tablet (Taking) Take 1 tablet by mouth Daily. Liquid B Complex Number of times this order has been changed since signin Order Audit [place] Calcium Carbonate (CALCIUM 600 PO) (Taking) Take by mouth in the morning and in the even ing. Number of times this order has been changed since signin Order Audit [place] Carboxymethylcellulose Sodium (REFRESH PLUS OP) (Taking) Apply to eye as needed. Number of times this order has been changed since signin Order Audit [place] cholecalciferol (VITAMIN D-3) 2000 UNITS TABS (Taking) Take 1,000 Units by mouth Daily. Number of times this order has been changed since signin Order Audit [place] CRANBERRY FRUIT PO (Taking) Take 200 mg by mouth in the morning and in the evening. Number of times this order has been changed since signin Order Audit [place] cyclobenzaprine (FLEXERIL) 10 mg tablet (Taking) Take 1 tablet by mouth every 8 hours as needed for Muscle spasms. Number of times this order has been changed since signin Order Audit [place] CycloSPORINE (RESTASIS OP) (Taking) Apply 1 drop to eye nightly. Number of times this order has been changed since signin Order Audit [place] IRON PO (Taking) Take by mouth in the morning and in the evening. Number of times this order has been changed since signin Order Audit [place] Loratadine (CLARITIN PO) (Taking) Take by mouth in the morning and in the evening. Number of times this order has been changed since signin Order Audit [place] minocycline (DYNACIN) 50 MG tablet (Taking) Take 50 mg by mouth every morning. Number of times this order has been changed since signin Order Audit [place] omeprazole (PRILOSEC) 20 mg capsule (Taking) Take 20 mg by mouth nightly. Number of times this order has been changed since signin Order Audit [place] Pediatric Multiple Vitamins (FLINTSTONES MULTIVITAMIN PO) (Taking) Take by mouth every m orning. Number of times this order has been changed since signin Order Audit [place] pilocarpine (SALAGEN) 5 mg tablet (Taking) Take 5 mg by mouth 4 times daily. Number of times this order has been changed since signin Order Audit [place] Probiotic Product (PROBIOTIC FORMULA) CAPS (Taking) Take 1 capsule by mouth daily (with b reakfast). Number of times this order has been changed since signin Order Audit [place] ASSESSMENT/PLAN: 1. Right total knee replacement A. Pt comfortable and stable. Anxious to be d/c today. Follow up in our office as susu sandoval B. Patient is advised that if they have any questions, comments or concerns to contact our office. Electronically signed by: Zachery Soria PA-C 05/29/2015 7:18 This note was dictated using the [employer] voice recognition system. Minor errors in grammar may have occurred Zachery Odonnell PA-C - 05/28/2015 12:20 PM PDTFormatting of this note might be different from the origi nal. Name:Ana Fernandez Todays Date: 05/28/2015 SUBJECTIVE: Pain is more notable today. Stable. Pain today rated at 4/10 OBJECTIVE: Removed flexmaster bandage today. Inspection of incision site reveals no erythema, indurati on, purulent drainage or signs of infection. Knee remains mildly swollen. Incision site was cleaned and aquacell bandage was placed over the incision site. Vitals normal. Neurovascul elizabeth intact lower distal extremities. Vitals with Comments 05/27/2015 05/27/2015 05/28/2015 05/28/2015 SYSTOLIC 107 110 104 105 DIASTOLIC 65 54 64 71 Pulse 88 100 103 94 Temp 98 98.8 99.9 98.6 Resp 18 20 20 16 Weight - - - - Height - - - - SPO2 98 96 99 95 BMI - - - - Pain Score - - - - Pain Loc - - - - Pain Edu? - - - - I/O last 3 completed shifts: In: 3220 [P.O.:3220] Out: 1950 [Urine:1951] Filed Vitals: 05/27/15 1540 05/27/15195405/28/15 0035 05/28/15 0708 BP: 107/65 110/54 104/64 105/71 Pulse: 88 100 103 94 Temp: 36.7 C (98 F) 37.1 C (98.8 F) 37.7 C (99.9 F) 37 C (98.6 F) TempSrc: Oral Oral Oral Oral Resp: 18 20 20 16 Height: Weight: SpO2: 98% 96% 99% 95% No results found for this or any previous visit (from the past 24 hour(s)). Patient Reported Taking Dosage Artificial Tear Insert (LACRISERT OP) (Taking) Apply 1 drop to eye nightly. Number of times this order has been changed since signin Order Audit [place] b complex vitamins tablet (Taking) Take 1 tablet by mouth Daily. Liquid B Complex Number of times this order has been changed since signin Order Audit [place] Calcium Carbonate (CALCIUM 600 PO) (Taking) Take by mouth in the morning and in the even ing. Number of times this order has been changed since signin Order Audit [place] Carboxymethylcellulose Sodium (REFRESH PLUS OP) (Taking) Apply to eye as needed. Number of times this order has been changed since signin Order Audit [place] cholecalciferol (VITAMIN D-3) 2000 UNITS TABS (Taking) Take 1,000 Units by mouth Daily. Number of times this order has been changed since signin Order Audit [place] CRANBERRY FRUIT PO (Taking) Take 200 mg by mouth in the morning and in the evening. Number of times this order has been changed since signin Order Audit [place] cyclobenzaprine (FLEXERIL) 10 mg tablet (Taking) Take 1 tablet by mouth every 8 hours as needed for Muscle spasms. Number of times this order has been changed since signin Order Audit [place] CycloSPORINE (RESTASIS OP) (Taking) Apply 1 drop to eye nightly. Number of times this order has been changed since signin Order Audit [place] IRON PO (Taking) Take by mouth in the morning and in the evening. Number of times this order has been changed since signin Order Audit [place] Loratadine (CLARITIN PO) (Taking) Take by mouth in the morning and in the evening. Number of times this order has been changed since signin Order Audit [place] minocycline (DYNACIN) 50 MG tablet (Taking) Take 50 mg by mouth every morning. Number of times this order has been changed since signin Order Audit [place] omeprazole (PRILOSEC) 20 mg capsule (Taking) Take 20 mg by mouth nightly. Number of times this order has been changed since signin Order Audit [place] Pediatric Multiple Vitamins (FLINTSTONES MULTIVITAMIN PO) (Taking) Take by mouth every m orning. Number of times this order has been changed since signin Order Audit [place] pilocarpine (SALAGEN) 5 mg tablet (Taking) Take 5 mg by mouth 4 times daily. Number of times this order has been changed since signin Order Audit [place] Probiotic Product (PROBIOTIC FORMULA) CAPS (Taking) Take 1 capsule by mouth daily (with b reakfast). Number of times this order has been changed since signin Order Audit [place] ASSESSMENT/PLAN: 1. Right total knee replacement A. Pt recovering well; more pain today as injections are no longer providing control of pa in. Pt is now controlling pain PO. Encouraged to participate w/ PT and OT. Continue w/ cur rent tx plan. B. Patient is advised that if they have any questions, comments or concerns to contact our office. Electronically signed by: Zachery Soria PA-C 05/28/2015 12:20 This note was dictated using the [employer] voice recognition system. Minor errors in grammar may have occurred Liz Jarrett MSW - 05/27/2015 10:30 AM PDT . 05/26/15 1300 Brace/Orthotic/Orthosis 05/26/15 1314 CPM (continuous passive motion) Placement Date/Time: 05/26/15 1314 Location/Type: CPM (continuous passive motion) Wearing Status applied;on (2 hrs x 2/day) Wearing Schedule 2 hours on Settings 0-50 deg Skin Condition other (see comments) (bandage present) Perfusion warm to touch Zachery Odonnell PA-C - 05/27/2015 8:21 AM PDTFormatting of this note might be different from the origina l. Name:Ana Fernandez Todays Date: 05/27/2015 SUBJECTIVE: Ms. Fernandez is sitting up on the end of her bed this morning. She is very talkative and soci al. Expressing minimal discomfort and pain in her right knee and leg. Current pain level w as morning rated at 0.5 out of 10. OBJECTIVE: Flex master bandage in place at right lower extremity. She is able to move her right toes. Palpation reveals a day remained mildly numb. Palpation of the calf and feet reveal no te nderness to palpation. Vitals within normal limits. Vitals with Comments 05/26/2015 05/26/2015 05/27/2015 05/27/2015 SYSTOLIC 98 104 105 127 DIASTOLIC 57 63 70 62 Pulse 112 102 94 77 Temp 96.1 97.5 96.4 97.2 Resp Weight - - - - Height - - - - SPO2 95 92 98 96 BMI - - - - Pain Score - - - - Pain Loc - - - - Pain Edu? - - - - I/O last 3 completed shifts: In: 3190 [P.O.:2080; I.V.:950; IV Piggyback:160] Out: 3345 [Urine:3330; Blood:15] Filed Vitals: 05/26/15 2025 05/26/15 2345 05/27/15 0345 05/27/15 0722 BP: 98/57 104/63 105/70 127/62 Pulse: 112 102 94 77 Temp: 35.6 C (96.1 F) 36.4 C (97.5 F) 35.8 C (96.4 F) 36.2 C (97.2 F) TempSrc: Oral Oral Oral Oral Resp: Height: Weight: SpO2: 95% 92% 98% 96% Recent Results (from the past 24 hour(s)) Basic Metabolic Panel Collection Time: 05/27/15 6:06 Result Value Ref Range NA 139 136-149 mmol/L K 4.0 3.5-5.1 mmol/L CL 108 98-109 mmol/L CO2 25 24-31 mmol/L ANION GAP 6 3-16 mmol/L GLUCOSE 109 70-109 mg/dL BUN 16 7-18 mg/dL Creatinine, Serum/Plasma 0.71 0.60-1.30 mg/dL eGFR if not >60 >=60 mL/min/1.73m2 CALCIUM 8.5 8.3-10.5 mg/dL BUN/CREA 22.5 Hemoglobin and Hematocrit Collection Time: 05/27/15 6:06 Result Value Ref Range Hgb 11.2 (L) 11.5-16.0 g/dL Hct 34.3 34.0-47.0 % Patient Reported Taking Dosage Artificial Tear Insert (LACRISERT OP) (Taking) Apply 1 drop to eye nightly. Number of times this order has been changed since signin Order Audit [place] b complex vitamins tablet (Taking) Take 1 tablet by mouth Daily. Liquid B Complex Number of times this order has been changed since signin Order Audit [place] Calcium Carbonate (CALCIUM 600 PO) (Taking) Take by mouth in the morning and in the even ing. Number of times this order has been changed since signin Order Audit [place] Carboxymethylcellulose Sodium (REFRESH PLUS OP) (Taking) Apply to eye as needed. Number of times this order has been changed since signin Order Audit [place] cholecalciferol (VITAMIN D-3) 2000 UNITS TABS (Taking) Take 1,000 Units by mouth Daily. Number of times this order has been changed since signin Order Audit [place] CRANBERRY FRUIT PO (Taking) Take 200 mg by mouth in the morning and in the evening. Number of times this order has been changed since signin Order Audit [place] cyclobenzaprine (FLEXERIL) 10 mg tablet (Taking) Take 1 tablet by mouth every 8 hours as needed for Muscle spasms. Number of times this order has been changed since signin Order Audit [place] CycloSPORINE (RESTASIS OP) (Taking) Apply 1 drop to eye nightly. Number of times this order has been changed since signin Order Audit [place] IRON PO (Taking) Take by mouth in the morning and in the evening. Number of times this order has been changed since signin Order Audit [place] Loratadine (CLARITIN PO) (Taking) Take by mouth in the morning and in the evening. Number of times this order has been changed since signin Order Audit [place] minocycline (DYNACIN) 50 MG tablet (Taking) Take 50 mg by mouth every morning. Number of times this order has been changed since signin Order Audit [place] omeprazole (PRILOSEC) 20 mg capsule (Taking) Take 20 mg by mouth nightly. Number of times this order has been changed since signin Order Audit [place] Pediatric Multiple Vitamins (FLINTSTONES MULTIVITAMIN PO) (Taking) Take by mouth every m orning. Number of times this order has been changed since signin Order Audit [place] pilocarpine (SALAGEN) 5 mg tablet (Taking) Take 5 mg by mouth 4 times daily. Number of times this order has been changed since signin Order Audit [place] Probiotic Product (PROBIOTIC FORMULA) CAPS (Taking) Take 1 capsule by mouth daily (with b reakfast). Number of times this order has been changed since signin Order Audit [place] ASSESSMENT/PLAN: 1. Total right knee arthroplasty A. Ms. Fernandez is doing remarkably well this morning postoperatively. Expressing minimal pa in and discomfort. She is anxious to make a good recovery and is looking forward to physica l therapy and occupational therapy today. Continue with current treatment plans. B. Patient is advised that if they have any questions, comments or concerns to contact our office. Electronically signed by: Zachery Soria PA-C 05/27/2015 8:21 This note was dictated using the [employer] voice recognition system. Minor errors in grammar may have occurred documented in th is encounter Plan of Treatment +--------+---------+ + + + | Date | Type | Specialty | Care Team | Description | +--------+---------+ + + + | 07/22/ | Office | Orthopedic Surgery | Ramin Bess | | | 2019 | Visit | | MD Swathi Gonzalez [facility] | | | | | | [place] | | | | | | [id number] | | | | | | | | +--------+---------+ + + + + +------+--------+ + + | Name | Type | Priori | Associated Diagnoses | Order Schedule | | | | ty | | | + +------+--------+ + + | DME: Misc CPM | DME | Routin | Primary | DME 1 Time for 1 | | | | e | osteoarthritis of | Occurrences starting | | | | | right knee | 05/27/2015 until | | | | | | 05/27/2015 | + +------+--------+ + + | DME: Misc CPM | DME | Routin | Status post total | DME 1 Time for 1 | | | | e | right knee | Occurrences starting | | | | | replacement | 05/28/2015 until | | | | | | 05/28/2015 | + +------+--------+ + + + + +--------+ + + | Name | Type | Priori | Associated Diagnoses | Order Schedule | | | | ty | | | + + +--------+ + + | Home Health, | Outpatient | Routin | Status post total | Ordered: 05/28/2015 | | External - AMB | Referral | e | right knee | | | Referral | | | replacement | | + + +--------+ + + documented as of this encounter Procedures + +--------+ + + + | Procedure Name | Priori | Date/Time | Associated Diagnosis | Comments | | | ty | | | | + +--------+ + + + | HEMOGLOBIN AND | Routin | 05/27/2015 | | Results for this | | HEMATOCRIT | e | 6:06 AM | | procedure are in the | | | | PDT | | results section. | + +--------+ + + + | BASIC METABOLIC | Routin | 05/27/2015 | | Results for this | | PANEL | e | 6:06 AM | | procedure are in the | | | | PDT | | results section. | + +--------+ + + + | XR KNEE RIGHT 1 - 2 | STAT | 05/26/2015 | | Results for this | | VW | | 9:51 AM | | procedure are in the | | | | PDT | | results section. | + +--------+ + + + | ARTHROPLASTY KNEE | | 05/26/2015 | Primary localized | | | | | 7:28 AM | osteoarthrosis, | | | | | PDT | lower leg, right | | + +--------+ + + + +---+--------+ | | | | | Specia | | | l | | | Needs | | | | | | Christiane | | | Carbo- | | | Jet | | | Handpi | | | shivani | | | and | | | Tubing | +---+--------+ documented in this encounter Results Hemoglobin and Hematocrit (05/27/2015 6:06 AM PDT) + + + + + + | Component | Value | Ref Range | Performed | Pathologist | | | | | At | Signature | + + + + + + | Hemoglobin | 11.2 (L) | 11.5 - 16.0 | [facility] | | | | | g/dL | [facility] | | | | | | [facility] | | | | | | [facility] - | | | | | | LABORATORY | | + + + + + + | Hematocrit | 34.3 | 34.0 - 47.0 % | [facility] [...] [address] | [place] | [phone] | | [facility] | | [id number] | | | - LABORATORY | | | | + + + + + Basic Metabolic Panel (05/27/2015 6:06 AM PDT) + + + + + [...] + + + + | K | 4.0 | 3.5 - 5.1 | [facility] | | | | | mmol/L | [facility] | | | | | | MEDICAL | | | | | | CENTER - | | | | | | LABORATORY | | + + + + + + | Cl | 108 | 98 - 109 mmol/L | [facility] | | | | | | [facility] | | | | | | [facility] | | | | | | C[facility] - | | | | | | LABORATORY | | + + + + + + | CO2 | 25 | 24 - 31 mmol/L | [facility] | | | | | | [facility] | | | | | | [facility] | | | | | | C[facility] - | | | | | | LABORATORY | | + + + + + + | Anion Gap | 6 | 3 - 16 mmol/L | [facility] | | | | | | [facility] | | | | | | [facility] | | | | | | C[facility] - | | | | | | LABORATORY | | + + + + + + | Glucose | 109 | 70 - 109 mg/dL | [facility] | | | | | | [facility] | | | | | | [facility]ICAL | | | | | | CENTER - | | | | | | LABORATORY | | + + + + + + | BUN | 16 | 7 - 18 mg/dL | [facility] | | | | | | [facility] | | | | | | [facility]ICAL | | | | | | CENTER - | | | | | | LABORATORY | | + + + + + + | Creatinine | 0.71 | 0.60 - 1.30 | [facility] | | | | | mg/dL | [facility] | | | | | | [facility] | | | | | | CENTER - | | | | | | LABORATORY | | + + + + + + | eGFR if not | >60Comment: GLOMERULAR | >=60 | [facility] | | | | FILTRATION | mL/min/1.73m2 | [facility] | | | GAMBIAN | RATE,ESTIMATED | | MEDICAL | | | | mL/min/1.06x1Idsr than | | CENTER - | | [...] + + + + | BUN/Creatin | 22.5 | | [facility] | | | ine Ratio | | | [facility] | | | | | [...] + + | [facility] | [address] | [place] | [phone] | | [facility] | | [address] | | | - LABORATORY | | | | + + + + + XR Knee Right 1 - 2 Vw (05/26/2015 9:51 AM PDT) + + | Specimen | + + | | + + + + + | Narrative | Performed At | + + + | XR KNEE RIGHT 1 - 2 VW. 05/26/2015 9:44 AM HISTORY: total | [facility] | | right knee arthroplasty . COMPARISON: Right knee x-ray 12/08/2014 | | | FINDINGS: Placement of right total knee arthroplasty prosthesis | | | noted, in satisfactory position and alignment, without periprosthetic | | | fracture or loosening. Expected gas is seen within the joint | | | capsule space, as well as in the overlying soft tissues. Skin | | | staple line seen anteriorly. IMPRESSION - Placement of total knee | | | arthroplasty in satisfactory position and alignment, without | | | evidence of hardware complication. Expected postsurgical change. | | | Dictated and Signed by: Kamaljit Rosa MD Electronically | | | signed: 05/26/2015 10:33 AM | | + + + + + | Procedure Note | + + | Silas, Rad Results In - 05/26/2015 10:36 AM PDT XR KNEE RIGHT 1 - 2 VW. 05/26/2015 | | 9:44 AMHISTORY: total right knee arthroplasty . COMPARISON: Right knee x-ray | | 12/08/2014FINDINGS:Placement of right total knee arthroplasty prosthesis noted, in | | satisfactoryposition and alignment, without periprosthetic fracture or loosening. | | Expectedgas is seen within the joint capsule space, as well as in the overlying | | softtissues. Skin staple line seen anteriorly.IMPRESSION -Placement of total knee | | arthroplasty in satisfactory position and alignment,without evidence of hardware | | complication. Expected postsurgical change.Dictated and Signed by: Kamaljit Rosa MD | | Electronically signed: 05/26/2015 10:33 AM | |gas is seen within the joint capsule space, as well as in the overlying soft | |tissues. Skin staple line seen anteriorly. | | | |IMPRESSION - | |Placement of total knee arthroplasty in satisfactory position and alignment, | |without evidence of hardware complication. Expected postsurgical change. | | | |Dictated and Signed by: Kamaljit Rosa MD | | Electronically signed: 05/26/2015 10:33 AM | + + + +---------+ + + | Performing | Address | City/State/Zipcode | Phone Number | | Organization | | | | + +---------+ + + | [facility] | | | | + +---------+ + + documented in this encounter Visit Diagnoses + + | Diagnosis | + + | Primary osteoarthritis of right knee - Primary Primary localized osteoarthrosis, | | lower leg | + + | Status post total right knee replacement | + + documented in this encounter Administered Medications + +--------+ +--------+------+------+ | Medication Order | MAR | Action | Dose | Rate | Site | | | Action | Date | | | | + +--------+ +--------+------+------+ | acetaminophen (TYLENOL) tablet | Given | 05/29/20 | 650 mg | | | | 650 mg 650 mg, Oral, EVERY 4 | | 15 8:17 | | | | | HOURS PRN, Pain, Starting Wed | | AM PDT | | | | | 05/26/15 at 1055, Post-op/Phase | | | | | | | II | | | | | | + +--------+ +--------+------+------+ +-------+ +--------+---+---+ | Given | 05/29/20 | 650 mg | | | | | 15 2:46 | | | | | | AM PDT | | | | +-------+ +--------+---+---+ | Given | 05/28/20 | 650 mg | | | | | 15 2:59 | | | | | | PM PDT | | | | +-------+ +--------+---+---+ +---+---+ | | | +---+---+ + +---------+ +-----+-------+---+ | ceFAZolin (ANCEF, KEFZOL) 1 g | New Bag | 05/27/20 | 1 g | 100 | | | in sodium chloride 0.9% 50 mL | | 15 2:26 | | mL/hr | | | IVPB 1 g, Intravenous, | | AM PDT | | | | | Administer over 30 Minutes, EVERY | | | | | | | 6 HOURS INTERVAL, First dose on | | | | | | | 05/26/15 at 1430, For 3 | | | | | | | doses, Start 8 hours after | | | | | | | previous dose. Last dose to be | | | | | | | given within 24 hours of surgery | | | | | | | end time. Activate system and mix | | | | | | | before use., Post-op/Phase II | | | | | | + +---------+ +-----+-------+---+ +---------+ +-----+-------+---+ | New Bag | 05/26/20 | 1 g | 100 | | | | 15 9:34 | | mL/hr | | | | PM PDT | | | | +---------+ +-----+-------+---+ | New Bag | 05/26/20 | 1 g | 100 | | | | 15 2:06 | | mL/hr | | | | PM PDT | | | | +---------+ +-----+-------+---+ +---+---+ | | | +---+---+ + +-------+ +-------+---+---+ | cyclobenzaprine (FLEXERIL) | Given | 05/28/20 | 10 mg | | | | tablet 10 mg 10 mg, Oral, EVERY | | 15 8:56 | | | | | 8 HOURS PRN, Muscle spasms, | | AM PDT | | | | | Starting 05/26/15 at 1055 | | | | | | + +-------+ +-------+---+---+ +---+---+ | | | +---+---+ + +-------+ +--------+---+---+ | docusate sodium (COLACE) | Given | 05/28/20 | 100 mg | | | | capsule 100 mg 100 mg, Oral, 2 | | 15 8:57 | | | | | TIMES DAILY PRN, Constipation, | | PM PDT | | | | | Starting 05/26/15 at 1055, | | | | | | | First line agent for | | | | | | | constipation, Post-op/Phase II | | | | | | + +-------+ +--------+---+---+ +-------+ +--------+---+---+ | Given | 05/28/20 | 100 mg | | | | | 15 4:24 | | | | | | AM PDT | | | | +-------+ +--------+---+---+ +---+---+ | | | +---+---+ + +-------+ +-------+---+---+ | famotidine (PEPCID) tablet 20 | Given | 05/29/20 | 20 mg | | | | mg 20 mg, Oral, 2 TIMES DAILY, | | 15 8:16 | | | | | First dose on Sun05/26/15 at | | AM PDT | | | | | 1115, Post-op/Phase II | | | | | | + +-------+ +-------+---+---+ +-------+ +-------+---+---+ | Given | 05/28/20 | 20 mg | | | | | 15 8:57 | | | | | | PM PDT | | | | +-------+ +-------+---+---+ | Given | 05/28/20 | 20 mg | | | | | 15 8:45 | | | | | | AM PDT | | | | +-------+ +-------+---+---+ +---+---+ | | | +---+---+ + +-------+ +------+---+---+ | HYDROmorphone (DILAUDID) tablet | Given | 05/27/20 | 2 mg | | | | 2-8 mg 2-8 mg, Oral, EVERY 3 | | 15 8:01 | | | | | HOURS PRN, Pain, Starting Wed | | AM PDT | | | | | 05/26/15 at 1055, If ineffective | | | | | | | or not tolerated, contact | | | | | | | prescriber., Post-op/Phase II | | | | | | + +-------+ +------+---+---+ +---+---+ | | | +---+---+ + +-------+ +--------+---+---+ | magnesium hydroxide (MILK OF | Given | 05/28/20 | 30 mLs | | | | MAGNESIA) 400 mg/5 mL suspension | | 15 8:57 | | | | | 30 mL 30 mL, Oral, NIGHTLY PRN, | | PM PDT | | | | | Constipation, Starting Fri | | | | | | | 05/28/15 at 0000, If docusate, | | | | | | | senna, and polyethylene glycol | | | | | | | ineffective x 24 hours or not | | | | | | | ordered, Post-op/Phase II | | | | | | + +-------+ +--------+---+---+ +---+---+ | | | +---+---+ + +-------+ +-------+---+---+ | minocycline (MINOCIN,DYNACIN) | Given | 05/29/20 | 50 mg | | | | capsule 50 mg 50 mg, Oral, | | 15 8:16 | | | | | DAILY, First dose on Sun05/27/15 | | AM PDT | | | | | at 0900 | | | | | | + +-------+ +-------+---+---+ +-------+ +-------+---+---+ | Given | 05/28/20 | 50 mg | | | | | 15 8:45 | | | | | | AM PDT | | | | +-------+ +-------+---+---+ | Given | 05/27/20 | 50 mg | | | | | 15 8:02 | | | | | | AM PDT | | | | +-------+ +-------+---+---+ +---+---+ | | | +---+---+ + +-------+ +------+---+---+ | oxyCODONE (ROXICODONE) tablet | Given | 05/28/20 | 5 mg | | | | 5-20 mg 5-20 mg, Oral, EVERY 3 | | 15 8:50 | | | | | HOURS PRN, Pain, Starting Wed | | AM PDT | | | | | 05/26/15 at 1055, If ineffective | | | | | | | or not tolerated use | | | | | | | hydromorphone if ordered., | | | | | | | Post-op/Phase II | | | | | | + +-------+ +------+---+---+ +-------+ +------+---+---+ | Given | 05/28/20 | 5 mg | | | | | 15 4:24 | | | | | | AM PDT | | | | +-------+ +------+---+---+ | Given | 05/27/20 | 5 mg | | | | | 15 9:43 | | | | | | PM PDT | | | | +-------+ +------+---+---+ +---+---+ | | | +---+---+ + +-------+ + +---+---+ | oxyCODONE-acetaminophen | Given | 05/28/20 | 1 tablet | | | | (PERCOCET) 5-325 mg per tablet | | 15 11:50 | | | | | 1-2 tablet 1-2 tablet, Oral, | | PM PDT | | | | | EVERY 4 HOURS PRN, Pain, Starting | | | | | | | 05/26/15 at 1055, If | | | | | | | ineffective use Oxycodone if | | | | | | | ordered. If not tolerated use | | | | | | | Ramey 10/325 if ordered., | | | | | | | Post-op/Phase II | | | | | | + +-------+ + +---+---+ +-------+ + +---+---+ | Given | 05/28/20 | 1 tablet | | | | | 15 12:58 | | | | | | AM PDT | | | | +-------+ + +---+---+ | Given | 05/27/20 | 1 tablet | | | | | 15 3:22 | | | | | | PM PDT | | | | +-------+ + +---+---+ +---+---+ | | | +---+---+ + +-------+ +------+---+---+ | pilocarpine (SALAGEN) tablet 5 | Given | 05/29/20 | 5 mg | | | | mg 5 mg, Oral, 4 TIMES DAILY, | | 15 8:16 | | | | | First dose on Sun05/26/15 at | | AM PDT | | | | | 1300 | | | | | | + +-------+ +------+---+---+ +-------+ +------+---+---+ | Given | 05/28/20 | 5 mg | | | | | 15 8:57 | | | | | | PM PDT | | | | +-------+ +------+---+---+ | Given | 05/28/20 | 5 mg | | | | | 15 6:07 | | | | | | PM PDT | | | | +-------+ +------+---+---+ +---+---+ | | | +---+---+ + +-------+ +------+---+---+ | polyethylene glycol (MIRALAX) | Given | 05/28/20 | 17 g | | | | powder 17 g 17 g, Oral, DAILY | | 15 4:25 | | | | | PRN, Constipation, Starting Wed | | AM PDT | | | | | 05/26/15 at 1055, If docusate and | | | | | | | senna ineffective or not | | | | | | | ordered, Post-op/Phase II | | | | | | + +-------+ +------+---+---+ +---+---+ | | | +---+---+ + +-------+ +-------+---+---+ | rivaroxaban (XARELTO) tablet 10 | Given | 05/29/20 | 10 mg | | | | mg 10 mg, Oral, DAILY, First | | 15 8:16 | | | | | dose on [facility] 05/27/15 at 0700, For | | AM PDT | | | | | 30 days, Post-op/Phase II | | | | | | + +-------+ +-------+---+---+ +-------+ +-------+---+---+ | Given | 05/28/20 | 10 mg | | | | | 15 8:46 | | | | | | AM PDT | | | | +-------+ +-------+---+---+ | Given | 05/27/20 | 10 mg | | | | | 15 6:07 | | | | | | AM PDT | | | | +-------+ +-------+---+---+ +---+---+ | | | +---+---+ documented in this encounter
--- OUTSIDE RECORDS SUMMARY | ~2019-07-02 | XMS | Clinical Summary ---
Demographics + + + | Address | [address] | | | [place] [address] | + + + | Home Phone [...] | [facility] | | | and Primo | + + + | Organization | [facility] | | | and [...] [place], [place] | | | | | [address] | | + + + + + | Dalton Fernandez | ECON | Unknown | | + + + + + | Juana Fernandez | ECON | Unknown | | + + + + + Care Team Providers + +------+ + | Care Installation Tech Name | Role | Phone | + +------+ + | Dutch Rodriguez DO | PCP | | + +------+ + Allergies + + + + + + | Active Allergy | Reactions | Severity | Noted | Comments | | | | | Date | | + + + + + + | Codeine | Other (See Comments) | Medium | 03/10/20 | Cotton Mouth | | | | | 14 | | + + + + + + | Food | Nausea Only | Medium | 06/10/20 | vegetable peppers | | | | | 14 | | + + + + + + | Hydrocodone | Rash | Low | 04/13/20 | | | | | | 16 | | + + + + + + | Onion | Shortness Of Breath, | High | 03/10/20 | Swelling mouth, | | | Other (See | | 14 | migraines, and 3 | | | Comments) | | | days of knotting | | | | | | stomach | + + + + + + | Penicillins | Rash | Medium | 03/10/20 | | | | | | 14 | | + + + + + + | Rivaroxaban | Other (See Comments) | High | 06/17/20 | Bleeding Ulcer | | | | | 19 | | + + + + + + Medications + + + +---------+------+------+-------+ | Medication | Sig | Dispensed | Refills | Star | End | Statu | | | | | | t | Date | s | | | | | | Date | | | + + + +---------+------+------+-------+ | | Place 1 drop into | | 0 | | | Activ | | Carboxymethylcellulo | both eyes as needed | | | | | e | | se Sodium (REFRESH | (for dry eyes). | | | | | | | PLUS OP) | | | | | | | + + + +---------+------+------+-------+ | minocycline | Take 50 mg by mouth | | 0 | | | Activ | | (DYNACIN) 50 MG | every morning. | | | | | e | | tablet | | | | | | | + + + +---------+------+------+-------+ | pilocarpine | Take 5 mg by mouth 4 | | 0 | | | Activ | | (SALAGEN) 5 mg | times daily. | | | | | e | | tablet | | | | | | | + + + +---------+------+------+-------+ | Calcium Carbonate | Take by mouth in | | 0 | | | Activ | | (CALCIUM 600 PO) | the morning and in | | | | | e | | | the evening. | | | | | | + + + +---------+------+------+-------+ | Pediatric Multiple | Take 1 tablet by | | 0 | | | Activ | | Vitamins | mouth every morning. | | | | | e | | (FLINTSTONES | | | | | | | | MULTIVITAMIN PO) | | | | | | | + + + +---------+------+------+-------+ | cholecalciferol | Take 1,000 Units by | | 0 | | | Activ | | (VITAMIN D-3) 2000 | mouth Daily. | | | | | e | | UNITS TABS | | | | | | | + + + +---------+------+------+-------+ | CRANBERRY FRUIT PO | Take 200 mg by mouth | | 0 | | | Activ | | | in the morning and | | | | | e | | | in the evening. | | | | | | + + + +---------+------+------+-------+ | b complex vitamins | Take 1 tablet by | | 0 | | | Activ | | tablet | mouth Daily. Liquid | | | | | e | | | B Complex | | | | | | + + + +---------+------+------+-------+ | omeprazole | Take 20 mg by mouth | | 0 | | | Activ | | (PRILOSEC) 20 mg | nightly as needed | | | | | e | | capsule | (acid reflux). | | | | | | + + + +---------+------+------+-------+ | Loratadine | Take 10 mg by mouth | | 0 | | | Activ | | (CLARITIN PO) | in the morning and | | | | | e | | | in the evening. | | | | | | + + + +---------+------+------+-------+ | Probiotic Product | Take 1 capsule by | | 0 | | | Activ | | (PROBIOTIC FORMULA) | mouth daily (with | | | | | e | | CAPS | breakfast). | | | | | | + + + +---------+------+------+-------+ | hydroxypropyl | Place 5 mg into both | | 0 | 02/0 | | Activ | | cellulose | eyes Daily. | | | 08/25 | | e | | (LACRISERT) 5 MG | | | | 16 | | | | INST | | | | | | | + + + +---------+------+------+-------+ | RESTASIS 0.05 % | Place 1 drop into | | 0 | 01/2 | | Activ | | ophthalmic emulsion | both eyes 2 times | | | /20 | | e | | | daily. | | | 16 | | | + + + +---------+------+------+-------+ | CHELATED MAGNESIUM | Take 84 mg by mouth | | 0 | | | Activ | | PO | 2 times daily. | | | | | e | + + + +---------+------+------+-------+ | EPIPEN 2-ARMIDA 0.3 | Inject 0.3 mg into | | 0 | 09/0 | | Activ | | MG/0.3ML injection | the muscle once. | | | 1/20 | | e | | | | | | 16 | | | + + + +---------+------+------+-------+ | ferrous sulfate | Take 325 mg by mouth | | 0 | | | Activ | | 325 mg tablet | 2 times daily (with | | | | | e | | | breakfast & | | | | | | | | dinner). | | | | | | + + + +---------+------+------+-------+ | fluticasone | 1 spray by Nasal | | 0 | | | Activ | | (FLONASE) 50 | route Daily. | | | | | e | | mcg/nasal spray | | | | | | | + + + +---------+------+------+-------+ | acetaminophen | Take 2 tablets by | 120 | 0 | 03/2 | | Activ | | (TYLENOL) 325 mg | mouth every 6 hours | tablet | | 9/20 | | e | | tablet | as needed for Pain. | | | 17 | | | + + + +---------+------+------+-------+ | gabapentin | Take 1 capsule by | 90 | 0 | 03/2 | | Activ | | (NEURONTIN) 300 mg | mouth nightly. | capsule | | /20 | | e | | capsule | | | | 17 | | | + + + +---------+------+------+-------+ | raNITIdine | | | 0 | 04/0 | | Activ | | (ZANTAC) 150 mg | | | | 4/20 | | e | | tablet | | | | 17 | | | + + + +---------+------+------+-------+ | clindamycin | Take 2 capsule 1 | 2 | 0 | 09/1 | | Activ | | (CLEOCIN) 300 MG | hour prior to dental | capsule | | /20 | | e | | capsule | procedure | | | 19 | | | + + + +---------+------+------+-------+ | teriparatide | Inject 20 mcg under | | 0 | 01/2 | | Activ | | (FORTEO) 600 mcg/2.4 | the skin Daily. | | | 4/20 | | e | | mL injection | | | | 19 | | | + + + +---------+------+------+-------+ | flintstones | Take 1 each by mouth | | 0 | | | Activ | | complete | Daily. | | | | | e | | (FLINTSTONES) | | | | | | | | chewable tablet | | | | | | | + + + +---------+------+------+-------+ | fish oil 1,000 mg | Take 1,000 mg by | | 0 | | | Activ | | capsule | mouth Daily. | | | | | e | + + + +---------+------+------+-------+ | Insulin Pen Needle | | | 0 | 09/1 | | Activ | | (BD PEN NEEDLE STEFFANIE | | | | 2/20 | | e | | U/F) 32G X 4 MM | | | | 19 | | | | MISC | | | | | | | + + + +---------+------+------+-------+ | Insulin Pen Needle | use 1 NEEDLE DAILY | | 0 | 10/ | | Activ | | (B-D UF III MINI | | | | 11/23 | | e | | PEN NEEDLES) 31G X 5 | | | | 19 | | | | MM MISC | | | | | | | + + + +---------+------+------+-------+ | fluconazole | | | 0 | 05/2 | | Activ | | (DIFLUCAN) 150 mg | | | | 04/25 | | e | | tablet | | | | 19 | | | + + + +---------+------+------+-------+ | Cranberry-Vitamin | Take 1 each by mouth | | 0 | | | Activ | | C-Vitamin E | 2 times daily. | | | | | e | | (CRANBERRY | | | | | | | | CONCENTRATE) | | | | | | | | 140-100-3 MG-MG-UNIT | | | | | | | | CAPS | | | | | | | + + + +---------+------+------+-------+ | clindamycin | | | 0 | 11/2 | | Activ | | (CLEOCIN) 150 mg | | | | 0/20 | | e | | capsule | | | | 18 | | | + + + +---------+------+------+-------+ | | Take 1 tablet by | | 0 | | | Activ | | Bkulerz-Pnayyzizs-Yh | mouth Daily. | | | | | e | | tamin D (CITRACAL | | | | | | | | SLOW RELEASE) | | | | | | | | 600-40-500 | | | | | | | | MG-MG-UNIT TB24 | | | | | | | + + + +---------+------+------+-------+ | folic acid 1 mg/mL | Take 667 mcg by | | 0 | | | Activ | | liquid | mouth Daily. | | | | | e | + + + +---------+------+------+-------+ | magnesium 30 MG | Take 300 mg by mouth | | 0 | | | Activ | | tablet | Daily. | | | | | e | + + + +---------+------+------+-------+ Active Problems + + + | Problem | Noted Date | + + + | Age-related osteoporosis with current pathological fracture with | 02/20/2018 | | routine healing | | + + + | Closed fracture of left distal femur | 10/22/2016 | + + + | Primary osteoarthritis of left knee | 02/09/2016 | + + + | Primary osteoarthritis of right knee | 05/26/2015 | + + + | S/P lumbar fusion | 07/22/2014 | + + + | Spondylolisthesis of lumbar region | 06/10/2014 | + + + | Lumbar radiculopathy | 06/10/2014 | + + + | Back pain | 06/10/2014 | + + + | Gastric reflux | | + + + | Migraine | | + + + Encounters +--------+ + + + + | Date | Type | Specialty | Care Team | Description | +--------+ + + + + | 06/17/ | Hospital | Radiology | Zachery Soria | Sprain of collateral | | 2019 | Encounter | | [place] Wong | ligament of left | | | | | | knee, initial | | | | | | encounter; Left knee | | | | | | pain, unspecified | | | | | | chronicity | +--------+ + + + + | 06/17/ | Office | Orthopedic Surgery | Zachery Soria | Sprain of collateral | | 2018 | Visit | | [place]IL[place] Wong | ligament of left | | | | | | knee, initial | | | | | | encounter (Primary | | | | | | Dx); Right knee | | | | | | pain, unspecified | | | | | | chronicity; Left | | | | | | knee pain, | | | | | | unspecified | | | | | | chronicity | +--------+ + + + + | 04/21/ | Refill | Orthopedic Surgery | Zachery Soria | Medication Refill | | 2018 | | | [place]IL[place]NA Wong | | +--------+ + + + + from Last 3 Months Family History + + +------+ + | Medical History | Relation | Name | Comments | + + +------+ + | Asthma | Brother | | | + + +------+ + | COPD | Brother | | | + + +------+ + | Heart defect | Father | | | + + +------+ + | Parkinsonism | Father | | | + + +------+ + | Heart disease | Maternal | | | | | Grandfath | | | | | er | | | + + +------+ + | Arthritis | Maternal | | | | | Grandmoth | | | | | er | | | + + +------+ + | COPD | Mother | | | + + +------+ + | Lung cancer | Mother | | | + + +------+ + | Osteoporosis | Mother | | | + + +------+ + | Asthma | Son | | | + + +------+ + + +------+ + + | Relation | Name | Status | Comments | + +------+ + + | Brother | | Alive | | + +------+ + + | Brother | | | | + +------+ + + | Daughter | | Alive | | + +------+ + + | Father | | | | + +------+ + + | Maternal Grandfather | | | | + +------+ + + | Maternal Grandmother | | | | + +------+ + + | Mother | | | | + +------+ + + | Paternal Grandfather | | | | + +------+ + + | Paternal Grandmother | | | | + +------+ + + | Son | | Alive | | + +------+ + + | Son | | | | + +------+ + + Social History + +-------+ +--------+------+ [...] | + + Last Filed Vital Signs + + + + + | Vital Sign | Reading | Time Taken | Comments | + + + + + | Blood Pressure | 124/64 | 11/01/2016 7:10 AM | | | | | PDT | | + + + + + | Pulse | 89 | 11/01/2016 7:10 AM | | | | | PDT | | + + + + + | Temperature | 36.9 C (98.4 F) | 12/26/2016 11:25 AM | | | | | PDT | | + + + + + | Respiratory Rate | 18 | 11/01/2016 7:10 AM | | | | | PDT | | + + + + + | Oxygen Saturation | 96% | 11/01/2016 7:10 AM | | | | | PDT [...] | | + + + + + Plan of Treatment +--------+---------+ + + + | Date | Type | Specialty | Care Team | Description | +--------+---------+ + + + | 07/22/ | Office | Orthopedic Surgery | Ramin Bess | | | 2018 | Visit | | MD Swathi Gonzalez | | | | | | [place] | | | | | | [phone] | | | | | | | | +--------+---------+ + + + + + + + + | Health Maintenance | Due Date | Last Done | Comments | + + + + + | Hepatitis C | | | | | Screening | 0 | | | + + + + + | Vaccine: Zoster (1 | | | | | of 2) | 0 | | | + + + + + | Breast Cancer | | | | | Screening | 5 | | | + + + + + | Vaccine: | | | | | Pneumococcal 65+ (1 | 5 | | | | of 2 - PCV13) | | | | + + + + + | Adult Annual | | | | | Wellness Visit | 5 | | | + + + + + | Vaccine: | | 10/19/2016 | | | Dtap/Tdap/Td (1 - | 7 | | | | Tdap) | | | | + + + + + | Colorectal Cancer | | 11/12/2016 | | | Screening | 7 | | | | (Colonoscopy) | | | | + + + + + | Vaccine: Influenza | Completed | 04/12/2019, 04/13/2018, | | | | | 04/13/2018, Additional history | | | | | exists | | + + + + + Implants + +--------+--------+ +--------+--------+--------+ | Implanted | Type | Area | Manufacture | Device | Shelf | Model | | | | | r | | Expira | / | | | | | | Identi | tion | Serial | | | | | | fier | Date | / Lot | + +--------+--------+ +--------+--------+--------+ | Sharad Bone Palacos-R 40gm - | Generi | Left: | CHRISTIANE - | | 06/05/ | 00-111 | | [id number]: Qty: 1 on | c | Knee | ZIMM | | 2019 | 2-140- | | 02/09/2016 by Shahriar, | | | | | | 01 / | | Ramin Gonzalez MD at [facility] | | | | | | /[id number] | | [facility] | | | | | | 472 | | CENTER | | | | | | | + +--------+--------+ +--------+--------+--------+ | Sharad Bone Palacos-R 40gm - | Generi | Left: | CHRISTIANE - | | 06/05/ | 00-111 | | [id number]: Qty: 1 on | c | Knee | ZIMM | | 2019 | 2-140- | | 02/09/2016 by Shahriar, | | | | | | 01 / | | Ramin Gonzalez MD at [facility] | | | | | | /[id number] | | [facility] | | | | | | 472 | | CENTER | | | | | | | + +--------+--------+ +--------+--------+--------+ | Imp Knee Tib 5deg Lt Seb - | Generi | Left: | CHRISTIANE - | | 12/03/ | 42-532 | | [id number]: Qty: 1 on | c | Knee | ZIMM | | 2025 | 0-071- | | 02/09/2016 by Shahriar, | | | | | | 01 / | | Ramin Gonzalez MD at [facility] | | | | | | /[id number] | | [facility] | | | | | | 826 | | CENTER | | | | | | | + +--------+--------+ +--------+--------+--------+ | Imp Knee Ptela Polyeth 35mm - | Generi | Left: | CHRISTIANE - | | 12/03/ | 42-540 | | [id number]: Qty: 1 | c | Knee | ZIMM | | 2023 | 0-000- | | on 02/09/2016 by Shahriar, | | | | | | 35 / | | Ramin Gonzalez MD at [facility] | | | | | | /[id number] | | [facility] | | | | | | 861 | | CENTER | | | | | | | + +--------+--------+ +--------+--------+--------+ | Imp Knee Fem Stem Cr Lt 0 Sz6 | Generi | Left: | CHRISTIANE - | | 02/02/ | 42-502 | | - [id number]: Qty: 1 | c | Knee | ZIMM | | 2024 | 6-060- | | on 02/09/2016 by Shahriar, | | | | | | 01 / | | Rmain Gonzalez MD at [facility] | | | | | | /[id number] | | [facility] | | | | | | 147 | | CENTER | | | | | | | + +--------+--------+ +--------+--------+--------+ | Nail Fem Scn T2 [id number] - | Nail | Left: | JUDY | | 03/05/ | 1826-1 | | [id number]: Qty: 1 on | | Femur | MEDICAL - | | 2019 | 332S / | | 10/23/2016 by Shahriar, | | | STRY | | | | | Ramin Gonzalez MD at [facility] | | | | | | /[id number] | | [facility] | | | | | | 42 | | CENTER | | | | | | | + +--------+--------+ +--------+--------+--------+ | Screw Jeimy F/T T2 Ti 5x60mm - | Screw | Left: | JUDY | | 05/05/ | 1896-5 | | [id number]: Qty: 1 on | | Femur | MEDICAL - | | 2019 | 060S / | | 10/23/2016 by Shahriar, | | | STRY | | | | | Ramin Gonzalez MD at [facility] | | | | | | /[id number] | | [facility] | | | | | | 29 | | CENTER | | | | | | | + +--------+--------+ +--------+--------+--------+ | Screw Jeimy F/T T2 Ti 5x70mm - | Screw | Left: | JUDY | | 07/05/ | 1896-5 | | [id number]: Qty: 1 on | | Femur | MEDICAL - | | 2020 | 070S / | | 10/23/2016 by Shahriar, | | | TONY | | | | | Ramin Gonzalez MD at [facility] | | | | | | /[id number] | | [facility] | | | | | | 82 | | CENTER | | | | | | | + +--------+--------+ +--------+--------+--------+ | Screw Jeimy F/T T2 Ti 5x75mm - | Screw | Left: | JUDY | | 01/03/ | 1896-5 | | [id number]: Qty: 1 on | | Femur | MEDICAL - | | 2020 | 075S / | | 10/23/2016 by Shahriar, | | | TONY | | | | | Ramin Gonzalez MD at [facility] | | | | | | /[id number] | | [facility] | | | | | | 1F | | CENTER | | | | | | | + +--------+--------+ +--------+--------+--------+ | Screw Jeimy F/T T2 Ti 5x30mm - | Screw | Left: | JUDY | | 08/05/ | 1896-5 | | [id number]: Qty: 1 on | | Femur | MEDICAL - | | 2020 | 030S / | | 10/23/2016 by Shahriar, | | | STRY | | | | | Ramin Gonzalez MD at [facility] | | | | | | /[id number] | | [facility] | | | | | | E8 | | CENTER | | | | | | | + +--------+--------+ +--------+--------+--------+ | Graft Infuse Bone Kit Xs - | | Bilate | SOFAMOR | | 05/05/ | [id number] | | [id number]: Qty: 1 on | | ral: | DANEK - DIV | | 2014 | 0 / | | 06/17/2014 by Douglas Nuñez, | | Spine | [facility] | | | /[id number] | | at [facility] | | Lumbar | - SFDK | | | 06AAL | | [facility] | | | | | | | + +--------+--------+ +--------+--------+--------+ | Cage Capstone 26x11 - | | Left: | MEDTRONIC - | | 04/29/ | [id number] | | [id number]: Qty: 1 on | | Spine | MEDT | | 2021 | | | 06/17/2014 by Douglas Nuñez, | | Lumbar | | | | /[id number] | | at [facility] | | | | | | 788 | | [facility] | | | | | | | + +--------+--------+ +--------+--------+--------+ | 5.5 X 5.0mm ScrewsImplanted: | | Left: | MEDTRONIC - | | | [id number] | | Qty: 4 on 06/17/2014 by Joaquin, | | Spine | MEDT | | | 0641 / | | Douglas Gomez MD at [facility] | | Lumbar | | | | / | | [facility] | | | | | | | + +--------+--------+ +--------+--------+--------+ | Screw Royal 7.5x45mm - | | Left: | [employer]IC - | | | [id number] | | [id number]: Qty: 2 on | | Spine | MEDT | | | 0708 / | | 06/17/2014 by Douglas Nuñez, | | Lumbar | | | | / | | at [facility] | | | | | | | | [facility] | | | | | | | + +--------+--------+ +--------+--------+--------+ | Set ScrewsImplanted: Qty: 6 | | Left: | MEDTRONIC - | | | [id number] | | on 06/17/2014 by Douglas Nuñez | | Spine | MEDT | | | 0800 / | | MD Jason at [facility] | | Lumbar | | | | / | | [facility] | | | | | | | + +--------+--------+ +--------+--------+--------+ | RodImplanted: Qty: 1 on | | Left: | MEDTRONIC - | | | [id number] | | 06/17/2014 by Douglas Nuñez, | | Spine | MEDT | | | 5045 / | | at [facility] | | Lumbar | | | | / | | [facility] | | | | | | | + +--------+--------+ +--------+--------+--------+ | RodImplanted: Qty: 1 on | | Left: | MEDTR[employer]IC - | | | [id number] | | 06/17/2014 by Douglas Nuñez, | | Spine | MEDT | | | 5050 / | | at [facility] | | Lumbar | | | | / | | [facility] | | | | | | | + +--------+--------+ +--------+--------+--------+ | Chips Cancellous 30cc - | | | OSTEOTECH - | | | [id number] | | [id number]: Qty: 1 | | | OSTT | | | S | | on 06/17/2014 at [facility] | | | | | | /[id number] | | [facility] | | | | | | 1-045 | | CENTER | | | | | | / | + +--------+--------+ +--------+--------+--------+ | Imp Spn Spcr Cpstn [id number] - | | | SOFAMOR | | | 759314 | | [id number]: Qty: 1 on | | | DANEK - DIV | | | 6 / | | 06/17/2014 at [facility] | | | MEDTRONIC | | | /[id number] | | [facility] | | | - SFDK | | | 162 | + +--------+--------+ +--------+--------+--------+ | Sharad Bone Palacos-R/G 40gm - | | | CHRISTIANE - | | 12/03/ | 00-111 | | [id number]: Qty: 2 on | | | [facility] | | 2019 | 3-140- | | 05/26/2015 by Shahriar, | | | | | | 01 / | | Ramin Gonzalez MD at [facility] | | | | | | /[id number] | | [facility] | | | | | | 445 | | CENTER | | | | | | | + +--------+--------+ +--------+--------+--------+ | Imp Knee Ptela Polyeth 35mm - | | | CHRISTIANE - | | 11/23/ | 42-540 | | [id number]: Qty: 1 | | | ZIMM | | 2022 | 0-000- | | on 05/26/2015 by Shahriar, | | | | | | 35 / | | Ramin Gonzalez MD at [facility] | | | | | | /[id number] | | [facility] | | | | | | 235 | | CENTER | | | | | | | + +--------+--------+ +--------+--------+--------+ | Imp Knee Tib 5deg Rt Seb - | | | CHRISTIANE - | | 04/05/ | 42-532 | | [id number]: Qty: 1 on | | | ZIMM | | 2024 | 0-071- | | 05/26/2015 by Shahriar, | | | | | | 02 / | | Ramin Gonzalez MD at [facility] | | | | | | /[id number] | | [facility] | | | | | | 252 | | CENTER | | | | | | | + +--------+--------+ +--------+--------+--------+ | Imp Knee Fem Stem Cr Rt 0 Sz6 | | | CHRISTIANE - | | 10/23/ | 42-502 | | - [id number]: Qty: 1 | | | ZIM | | 5 | 6-060- | | on 05/26/2015 by Shahriar, | | | | | | 02 / | | Ramin Gonzalez MD at [facility] | | | | | | /[id number] | | [facility] | | | | | | 498 | | CENTER | | | | | | | + +--------+--------+ +--------+--------+--------+ | Articular SurfaceImplanted: | | | Christiane | | 10/23/ | 42-522 | | Qty: 1 on 05/26/2015 by | | | | | 2019 | - | | Ramin Bess MD at | | | | | | / | | [facility] | | | | | | /[address] | | [facility] | | | | | | 204 | + +--------+--------+ +--------+--------+--------+ | Imp Knee Surf Art L 10 | | Left: | CHRISTIANE - | | 04/05/ | 42-512 | | 6-7/Ef - [id number]: | | Knee | ZIMM | | 2019 | - | | Qty: 1 on 02/09/2016 by | | | | | | 10 / | | Ramin Bess MD at | | | | | | /[id number] | | [facility] [place] | | | | | | [address] | | [facility] | | | | | | | + +--------+--------+ +--------+--------+--------+ Procedures + +--------+ + + + | Procedure Name | Priori | Date/Time | Associated Diagnosis | Comments | | | ty | | | | + +--------+ + + + | XR KNEE LEFT 1 - 2 | Routin | 06/17/2019 | Sprain of | Results for this | | VW | e | 10:39 AM | collateral ligament | procedure are in the | | | | PST | of left knee, | results section. | | | | | initial encounter | | | | | | Left knee pain, | | | | | | unspecified | | | | | | chronicity | | + +--------+ + + + from Last 3 Months Results XR Knee Left 1 - 2 [...] + + | Performing | Address | City[facility] | Phone Number | | Organization | | | | + +---------+ + + | [facility] | | | | + +---------+ + + from Last 3 Months Insurance + +--------+ +--------+-------+---------+--------+ | Payer | Benefi | Subscriber | Effect | Phone | Address | Type | | | t Plan | ID | eleanor | | | | | | / | | Dates | | | | | | Group | | | | | | + +--------+ +--------+-------+---------+--------+ | [facility] | [facility] | [id number] | 08/06/19 | | | Medica | | MEDICARE PPO | HEALTH | | 19-Pre | | | re | | | CARE | | sent | | | | | | MDCR | | | | | | | | PPO | | | | | | + +--------+ +--------+-------+---------+--------+ + +--------+ +--------+ + + | Guarantor Name | Accoun | Relation to | Date | Phone | Billing Address | | | t Type | Patient | of | | | | | | | | | | + +--------+ +--------+ + + | Ana Fernandez | Person | Self [birth year] [address] | | | al/Fam | | [phone] | [phone] | [place] [id number] | | | [place] | | | [address] (Home) | | + +--------+ +--------+ + + Advance Directives + + + + + | Type | Date Recorded | Patient | Explanation | | | | [employer]sembler | | + + + + + | Power of | | | | | Market Director | | | | + + + + + | Advance | 06/17/2019 | | | | Directive | 10:20 AM | | | + + + + + + + + + + | Code Status | Date | Date | Comments | | | Activated | Inactivated | | + + + + + | Full Code | 10/25/2016 | 11/01/2016 | | | | 3:58 PM | 7:38 PM | | + + + + + + + + +---+ | | | | | + + + +---+ | Full Code | 10/22/2016 | 10/25/2016 | | | | 9:05 PM | 3:58 PM | | + + + +---+ + + + +---+ | | | | | + + + +---+ | Full Code | 02/09/2016 | 02/12/2016 | | | | 10:56 AM | 3:44 PM | | + + + +---+ + + + +---+ | | | | | + + + +---+ | Full Code | 05/26/2015 | 05/29/2015 | | | | 10:55 AM | 2:57 PM | | + + + +---+ + + + +---+ | | | | | + + + +---+ | Full Code | 06/17/2014 | 06/19/2014 | | | | 6:45 PM | 4:58 PM | | + + + +---+
--- OUTSIDE RECORDS SUMMARY | ~2019-07-02 | XMS | Encounter Summary ---
Demographics + + + | Address | [address] | | | [place] [address] | + + + | Home Phone | | + + + | Preferred Language | Unknown | + + + | Marital Status | | + + + | Sabianist Affiliation | 1076 | + + + | Race | Unknown | + + + | Ethnic Group | Unknown | + + + Author + + + | Author | [facility] | | | and Primo | + + + | Organization | [facility] | | | and [place] [...] [place], [place] | | | | | [address] | | + + + + + | Dalton Fernandez | ECON | Unknown | | + + + + + | Juana Fernandez | ECON | Unknown | | + + + + + Care Team Providers + +------+ + | Care Conference Organizer Name | Role | Phone | + +------+ + | Dutch Rodriguez DO | PCP | | + +------+ + Reason for Visit +---------+ + | Reason | Comments | +---------+ + | Post Op | Left total knee arthroplasy DOS 02/09/16 | +---------+ + Encounter Details +--------+---------+ + + + | Date | Type | Department | Care Team | Description | +--------+---------+ + + + | 02/21/ | Office | [facility] | Zachery Soria | Status post total | | 2016 | Visit | ORTHOPEDIC SURGERY | [address]ILIA[address] | left knee | | | | [address] [facility] | Josu[address] Young | replacement (Primary | | | | [place] | [place] [address] | Dx) | | | | [address] | [phone] | | | | | [phone] | | | +--------+---------+ + + + [...] Temperature | 36.8 C (98.2 F) | 02/22/2016 10:36 AM | | | | | PDT [...] Weight | 70.3 kg (155 lb) | 02/22/2016 10:36 AM | | | | | PDT | | + + + + + | Height | 162.6 cm (5' 4") | 02/22/2016 10:36 AM | | | | | PDT | | + + + + + | Body Mass Index | 26.61 | 02/22/2016 10:36 AM | | | | | PDT [...] encounter Progress Notes Zachery Soria PA-C - 02/22/2016 1:24 PM PDTFormatting of this note might be differe nt from the original. Name:Ana Fernandez Todays Date: 02/22/2016 Age: 65 y.o. PCP: Dutch Rodriguez DO Chief Complaint Patient presents with Post Op Left total knee arthroplasy DOS 02/09/16 SUBJECTIVE: Returns today for first postoperative visit following a left total knee arthroplasty this p erformed on 02/09/16. She describes that she has continue with physical therapy at home and o n an outpatient basis at [place] physical therapy department. Pain has remained well-controlled and a minimal postoperatively. She has continued with hy drocodone when necessary for the left knee pain. Current level pain is rated at a 1 out of 10. OBJECTIVE: Patient is sitting comfortably in exam chair with leg propped up in full extension. Ambula cheli with assistance of walker today. Inspection of incision site reveals the skin is well a pproximated and healing appropriately. No erythema, induration, ecchymosis or signs of infe ction noted. No open wound or drainage is noted. Skin is warm and dry and she is neurovasc ularly intact left knee. Active range of motion today is approximately 0 91 degrees. Lef t leg is swollen as expected compared to the right. Imaging/Studies: No studies to review at this time. Filed Vitals: 02/22/16 1036 Temp: 36.8 C (98.2 F) TempSrc: Temporal Height: 1.626 m (5' 4") Weight: 70.308 kg (155 lb) ASSESSMENT/PLAN: 1. Left total knee arthroplasty, status postop A. patient is recovering remarkably well following a left total knee arthroplasty that was performed on 02/09/16. Pain remains well controlled postoperatively and she is already able to achieve full extension of the left knee. Recommend she continue with physical therapy at home and on an outpatient basis at [place] physical therapy department. Continue with pain medications that were already prescribed. Follow-up in approximately 2 weeks for reeva luation and imaging study. B. Patient is advised that if they have any questions, comments or concerns to contact our office. Electronically signed by: Zachery Soria PA-C 02/22/2016 13:24 This note was dictated using the Appsindep recognition system. Minor errors in grammar may have occurred. documented in t his encounter Plan of Treatment +--------+---------+ + + + | Date | Type | Specialty | Care Team | Description | +--------+---------+ + + + | 07/22/ | Office | Orthopedic Surgery | Ramin Bess | | | 2019 | Visit | | MD Lisa [address] [place] [address] | | | | | | [place] | | | | | | [address] | | | | | | | | +--------+---------+ + + + documented as of this encounter Visit Diagnoses + + | Diagnosis | + + | Status post total left knee replacement - Primary | + + documented in this encounter
--- OUTSIDE RECORDS SUMMARY | ~2019-07-02 | XMS | Encounter Summary ---
Demographics + + + | Address | [address] | | | [place] [address] | + + + | Home Phone [...] + + | Author | [facility] | | | and Primo | + + + | Organization | [facility] | | | and [...] [place], [place] | | | | | [address] | | + + + + + | Datlon Koroma | ECON | Unknown | | + + + + + | Juana Koroma | ECON | Unknown | | + + + + + Care Team Providers + +------+ + | Care Draw Frame Operator Name | Role | Phone | [...] + | 06/08/ | Office | [facility] | Ramin Huggins | S/P orthopedic | | 2015 | Visit | ORTHOPEDIC SURGERY | MD Lisa [address] [facility] | surgery, follow-up | | | | [address] [facility] | [place] | exam (Primary Dx) | | | | [place] | [address] | | | | | [address] | | | | | | [phone] | | | +--------+---------+ + + + [...] - 06/08/2015 12:22 PM PSTSee soap note [id number].Electronically sign ed by Ramin Huggins MD at 06/08/2015 12:22 PM PSTNazareth HospitalRamin fierro MD - 12:22 PM PST [facility] ORTH[facility]IC [facility]GERY [address] [place] [id number] OFFICE NOTE RAMIN HUGGINS MD Patient: MYRIAM KOROMA Admitting: MR #: [id number] LOC: PT TYPE: Adm Date: 06/08/2015 : [...] Transcribed on 06/09/2015 03:46:[address] shahid# [id number] Confirmation #: [id number] cc: DUTCH VALENCIA DOElectronjose e signed by [...]
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
--- OUTSIDE RECORDS SUMMARY | ~2019-07-02 | XMS | Encounter Summary ---
Demographics + + + | Address | [address] | | | [place] [address] | + + + | Home Phone | | + + + | Preferred Language | Unknown | + + + | Marital Status | | + + + | Hoahaoism Affiliation | 1076 | + + + | Race | Unknown | + + + | Ethnic Group | Unknown | + + + Author + + + | Author | [facility] | | | and Primo | + + + | Organization | [facility] | | | and [place] | [...] [place], [place] | | | | | [address] | | + + + + + | Dalton Fernandez | ECON | Unknown | | + + + + + | Juana Fernandez | ECON | Unknown | | + + + + + Care Team Providers + +------+ + | Care Scientific Research Associate Name | Role | Phone | + [...] | | | | | | | [place] T[place] | | | | | | [...] Description | +--------+---------+ + + + | 05/26/ | Surgery | [facility] | Ramin Bess | Right Total Knee | | 2015 | | [facility] OP | MD Lisa [address] | Arthroplasty | | | | [address] | [place], [place] | | | | | [place], [place] | [address] | | | | | [address] | | | | | | [phone] | | | +--------+---------+ + + + [...] controlled. Hospital Course: Pt was [facility] for a Right knee total Arthropl asty. [...] PA-C 05/28/2015. This not was dictated using Kino[employer] Voice recognition system. There may be minor [...] maco or screws may be removed. [employer] [address] [place], [place] [id number]. All righ ts reserved. This information is [...] also affect oth er joints nearby. [employer] [address] [place] [address]. All righ ts reserved. This information is [...] Cycling and swimming are good choice s. 2893-3802 [employer] [address] [place] [address]. All righ ts reserved. This information is [...] by your healthcare provider Worsening joint pain 0650-4561 [employer] [address] [place] [address]. All righ ts reserved. This information is [...] can be very helpful for rheumatoid arthritis. [phone] [employer] [address] [place] [address]. All righ ts reserved. This information is not intended as a substitute for professional medical care. Always follow your healthcare professional's instructions. AttachmentsThe following attachments cannot be sent through Care Everywhere.KNEE REPLACEMEN T, AFTER: HOSPITAL RECOVERY (AFGHAN)KNEE REPLACEMENT, AFTER: KEEPING YOUR KNEE HEALTHY (TALIA PEDRAZA)KNEE REPLACEMENT, AFTER: RIGHT AFTER SURGERY (AFGHAN)documented in this encounter Medications at Time of [...] has been changed since signin Order [facility] [place] b complex vitamins tablet (Taking) Take 1 tablet by mouth Daily. Liquid B Complex Number of times this order has been changed since signin [facility] [place] Calcium Carbonate (CALCIUM 600 PO) (Taking) Take by mouth in the morning and in the even ing. Number of times this order has been changed since signin [facility] [place] Carboxymethylcellulose Sodium (REFRESH PLUS OP) (Taking) Apply to eye as needed. Number of times this order has been changed since signin [facility] [place] cholecalciferol (VITAMIN D-3) 2000 UNITS TABS (Taking) Take 1,000 Units by mouth Daily. Number of times this order has been changed since signin [facility] [place] CRANBERRY FRUIT PO (Taking) Take 200 mg by mouth in the morning and in the evening. Number of times this order has been changed since signin [facility] [place] cyclobenzaprine (FLEXERIL) 10 mg tablet (Taking) Take 1 tablet by mouth every 8 hours as needed for Muscle spasms. Number of times this order has been changed since signin [facility] [place] CycloSPORINE (RESTASIS OP) (Taking) Apply 1 drop to eye nightly. Number of times this order has been changed since signin [facility] [place] IRON PO (Taking) Take by mouth in the morning and in the evening. Number of times this order has been changed since signin [facility] [place] Loratadine (CLARITIN PO) (Taking) Take by mouth in the morning and in the evening. Number of times this order has been changed since signin [facility] [place] minocycline (DYNACIN) 50 MG tablet (Taking) Take 50 mg by mouth every morning. Number of times this order has been changed since signin [facility] [place] omeprazole (PRILOSEC) 20 mg capsule (Taking) Take 20 mg by mouth nightly. Number of times this order has been changed since signin [facility] [place] Pediatric Multiple Vitamins (FLINTSTONES MULTIVITAMIN PO) (Taking) Take by mouth every m orning. Number of times this order has been changed since signin [facility] [place] pilocarpine (SALAGEN) 5 mg tablet (Taking) Take 5 mg by mouth 4 times daily. Number of times this order has been changed since signin [facility] [place] Probiotic Product (PROBIOTIC FORMULA) CAPS (Taking) Take 1 capsule by mouth daily (with b reakfast). Number of times this order has been changed since signin [facility] [place] ASSESSMENT/PLAN: 1. Right total knee replacement A. Pt comfortable and stable. Anxious to be d/c today. Follow up in our office as karoul ed B. Patient is advised that if they have any questions, comments or concerns to contact our office. Electronically signed by: Zachery Soria PA-C 05/29/2015 7:18 This note was dictated using the Kinoos voice recognition system. Minor errors in grammar [...] 94 Temp 98 98.8 99.9 98.6 Resp 16 Weight - - - - Height - - - - SPO2 98 96 99 95 BMI - - - - Pain Score - - - - Pain Loc - - - - Pain Edu? - - - - I/O last 3 completed shifts: In: 3220 [P.O.:3220] Out: 1949 [Urine:1950] Filed Vitals: 05/27/15 1540 05/27/15 1955 05/28/15 0035 05/28/15 0708 BP: 107/65 110/54 104/64 105/71 Pulse: 88 100 103 94 Temp: 36.7 C (98 F) 37.1 C (98.8 F) 37.7 C (99.9 F) 37 C (98.6 F) TempSrc: Oral Oral Oral Oral Resp: 16 Height: Weight: SpO2: 98% 96% 99% 95% No results found for this or any previous visit (from the past 24 hour(s)). Patient Reported Taking Dosage Artificial Tear Insert (LACRISERT OP) (Taking) Apply 1 drop to eye nightly. Number of times this order has been changed since signin [facility] [place] b complex vitamins tablet (Taking) Take 1 tablet by mouth Daily. Liquid B Complex Number of times this order has been changed since signin [facility] [place] Calcium Carbonate (CALCIUM 600 PO) (Taking) Take by mouth in the morning and in the even ing. Number of times this order has been changed since signin [facility] [place] Carboxymethylcellulose Sodium (REFRESH PLUS OP) (Taking) Apply to eye as needed. Number of times this order has been changed since signin [facility] [place] cholecalciferol (VITAMIN D-3) 2000 UNITS TABS (Taking) Take 1,000 Units by mouth Daily. Number of times this order has been changed since signin [facility] [place] CRANBERRY FRUIT PO (Taking) Take 200 mg by mouth in the morning and in the evening. Number of times this order has been changed since signin [facility] [place] cyclobenzaprine (FLEXERIL) 10 mg tablet (Taking) Take 1 tablet by mouth every 8 hours as needed for Muscle spasms. Number of times this order has been changed since signin [facility] [place] CycloSPORINE (RESTASIS OP) (Taking) Apply 1 drop to eye nightly. Number of times this order has been changed since signin [facility] [place] IRON PO (Taking) Take by mouth in the morning and in the evening. Number of times this order has been changed since signin [facility] [place] Loratadine (CLARITIN PO) (Taking) Take by mouth in the morning and in the evening. Number of times this order has been changed since signin [facility] [place] minocycline (DYNACIN) 50 MG tablet (Taking) Take 50 mg by mouth every morning. Number of times this order has been changed since signin [facility] [place] omeprazole (PRILOSEC) 20 mg capsule (Taking) Take 20 mg by mouth nightly. Number of times this order has been changed since signin [facility] [place] Pediatric Multiple Vitamins (FLINTSTONES MULTIVITAMIN PO) (Taking) Take by mouth every m orning. Number of times this order has been changed since signin [facility] [place] pilocarpine (SALAGEN) 5 mg tablet (Taking) Take 5 mg by mouth 4 times daily. Number of times this order has been changed since signin [facility] [place] Probiotic Product (PROBIOTIC FORMULA) CAPS (Taking) Take 1 capsule by mouth daily (with b reakfast). Number of times this order has been changed since signin [facility] [place] ASSESSMENT/PLAN: 1. Right total knee replacement A. [...] 12:20 This note was dictated using the Kinoos voice recognition system. Minor errors in grammar [...] Piggyback:160] Out: 3345 [Urine:3330; Blood:15] Filed Vitals: 05/26/15202405/26/15 2345 05/27/15 0345 05/27/15 0722 BP: 98/57 [...] has been changed since signin [facility] [place] b complex vitamins tablet (Taking) Take 1 tablet by mouth Daily. Liquid B Complex Number of times this order has been changed since signin Order [facility] [place] Calcium Carbonate (CALCIUM 600 PO) (Taking) Take by mouth in the morning and in the even ing. Number of times this order has been changed since signin Order [facility] [place] Carboxymethylcellulose Sodium (REFRESH PLUS OP) (Taking) Apply to eye as needed. Number of times this order has been changed since signin [facility] [place] cholecalciferol (VITAMIN D-3) 2000 UNITS TABS (Taking) Take 1,000 Units by mouth Daily. Number of times this order has been changed since signin [facility] [place] CRANBERRY FRUIT PO (Taking) Take 200 mg by mouth in the morning and in the evening. Number of times this order has been changed since signin [facility] [place] cyclobenzaprine (FLEXERIL) 10 mg tablet (Taking) Take 1 tablet by mouth every 8 hours as needed for Muscle spasms. Number of times this order has been changed since signin [facility] [place] CycloSPORINE (RESTASIS OP) (Taking) Apply 1 drop to eye nightly. Number of times this order has been changed since signin [facility] [place] IRON PO (Taking) Take by mouth in the morning and in the evening. Number of times this order has been changed since signin [facility] [place] Loratadine (CLARITIN PO) (Taking) Take by mouth in the morning and in the evening. Number of times this order has been changed since signin [facility] [place] minocycline (DYNACIN) 50 MG tablet (Taking) Take 50 mg by mouth every morning. Number of times this order has been changed since signin [facility] [place] omeprazole (PRILOSEC) 20 mg capsule (Taking) Take 20 mg by mouth nightly. Number of times this order has been changed since signin [facility] [place] Pediatric Multiple Vitamins (FLINTSTONES MULTIVITAMIN PO) (Taking) Take by mouth every m orning. Number of times this order has been changed since signin [facility] [place] pilocarpine (SALAGEN) 5 mg tablet (Taking) Take 5 mg by mouth 4 times daily. Number of times this order has been changed since signin [facility] [place] Probiotic Product (PROBIOTIC FORMULA) CAPS (Taking) Take 1 capsule by mouth daily (with b reakfast). Number of times this order has been changed since signin [facility] [place] ASSESSMENT/PLAN: 1. Total right knee arthroplasty A. [...] to contact our office. Electronically signed by: Zahcery Soria PA-C 05/27/2015 8:21 This note was dictated using the Kinoos voice recognition system. Minor errors in grammar [...] | | | | | | [place] | | | | | | [address] | | | | | | | [...] + | [facility] | [address] | [place] | [phone] | | [facility] | | [address] | | | - LABORATORY | | [...] 109 | 70 - 109 mg/dL | [facility] | | | | [facility] | | | [facility] | | | | [facility] - | | | | | | LABORATORY | | + + + + + + | BUN | 16 | 7 - 18 mg/dL | [facility] | | | | [facility] | | | | | [facility] | | | | | | [facility] - | | | | | | LABORATORY | | + + + + + + | Creatinine | 0.71 | 0.60 - 1.30 | [facility] | | | | | mg/dL | [facility] | | | | | [facility] | | | | | | [facility] - | | | | | | LABORATORY | | + + + + + + | eGFR if not | >60Comment: GLOMERULAR | >=60 | [facility] | | | | FILTRATION | mL/min/1.73m2 | [facility] | | | [facility] | RATE,ESTIMATED | | MEDICAL | | | | mL/min/1.72c9Yjjb than | | CENTER - | | [...] ST. | [address] | [place], [place] | [phone] | | [facility] | | [address] | | | - LABORATORY | | [...] + | Vinod Rosen Results In - 05/26/2015 10:36 AM PDT [...] | Primary localized osteoarthrosis, lower leg, right | + + documented in this encounter Administered Medications + +--------+ +--------+------+ + | Medication Order | MAR | Action | Dose | Rate | Site | | | Action | Date | | | | + +--------+ +--------+------+ + | bupivacaine (liposomal) | Given | 05/26/20 | 20 mLs | | Surgical | | (EXPAREL) 1.3% injection PRN, | | 15 8:40 | | | Site | | Starting 05/26/15 at 0840, | | AM PDT | | | | | Intra-op | | | | | | + +--------+ +--------+------+ + +---+---+ | | | +---+---+ + +-------+ +--------+---+ + | EPINEPHrine 1 mg/mL injection | Given | 05/26/20 | 0.3 mg | | Other | | PRN, Starting 05/26/15 at | | 15 8:11 | | | (Comment | | 0811, Intra-op | | AM PDT | | | ) | + +-------+ +--------+---+ + +---+---+ | | | +---+---+ + +-------+ +-------+---+ + | ketorolac (TORADOL) injection | Given | 05/26/20 | 30 mg | | Other | | PRN, Starting Sun05/26/15 at | | 15 8:12 | | | (Comment | | 0812, Intra-op | | AM PDT | | | ) | + +-------+ +-------+---+ + +---+---+ | | | +---+---+ + +-------+ +--------+---+---+ | ropivacaine (NAROPIN) 2 mg/mL | Given | 05/26/20 | 59 mLs | | | | (0.2%) injection PRN, Starting | | 15 8:12 | | | | | 05/26/15 at 0812, Intra-op | | AM PDT | | | | + +-------+ +--------+---+---+ +---+---+ | | | +---+---+ + +-------+ +--------+---+---+ | sodium chloride bacteriostatic | Given | 05/26/20 | 30 mLs | | | | 0.9% injection PRN, Starting Wed | | 15 8:12 | | | | | 05/26/15 at 12, Intra-op | | AM PDT | | | | + +-------+ +--------+---+---+ +---+---+ | | | +---+---+ + +-------+ +-----+---+ + | vancomycin injection PRN, | Given | 05/26/20 | 1 g | | Surgical | | Starting 05/26/15 at 811, | | 15 8:12 | | | Site | | Intra-op | | AM PDT | | | | + +-------+ +-----+---+ + +---+---+ | | | +---+---+ documented in this encounter
--- OUTSIDE RECORDS SUMMARY | ~2019-07-02 | XMS | Encounter Summary ---
Demographics + + + | Address | [address] | | | [place] [address] | + + + | Home Phone | | + + + | Preferred Language | Unknown | + + + | Marital Status | | + + + | Latter-Day Affiliation | 1076 | + + + | Race | Unknown | + + + | Ethnic Group | Unknown | + + + Author + + + | Author | [facility] | | | and Primo | + + + | Organization | [facility] | | | and [place] [...] [place], [place] | | | | | [address] | | + + + + + | Dalton Fernandez | ECON | Unknown | | + + + + + | Juana Fernandez | ECON | Unknown | | + + + + + Care Team Providers + +------+ + | Care Radiology Nurse Name | Role | Phone | + [...] | +--------+ + + + + | 02/13/ | Telephone | [facility] | Cyn Lee, | Hospital Follow-up | | 2016 | | [facility] | [address] | | | | | [address] | [place] [address] | | | | | [place] [address] | [phone] | | | | | [phone] | | | +--------+ + + + [...]
--- OUTSIDE RECORDS SUMMARY | ~2019-07-02 | XMS | Encounter Summary ---
Demographics + + + | Address | [address] | | | [place] [address] | + + + | Home Phone | | + + + | Preferred Language | Unknown | + + + | Marital Status | | + + + | Zoroastrian Affiliation | 1076 | + + + | Race | Unknown | + + + | Ethnic Group | Unknown | + + + Author + + + | Author | [facility] | | | and Primo | + + + | Organization | [facility] | | | and [...] [place], [place] | | | | | [address] | | + + + + + | Dalton Fernandez | ECON | Unknown | | + + + + + | Juana Fernandez | ECON | Unknown | | + + + + + Care Team Providers + +------+ + | Care Sales Person Name | Role | Phone | + +------+ + | Dutch Rodriguez DO | PCP | | + +------+ + Encounter Details +--------+ + + + + | Date | Type | Department | Care Team | Description | +--------+ + + + + | 04/06/ | [facility] | [facility] | Douglas Nuñez MD | S/P lumbar fusion | | 2015 | Encounter | MED CTR XRAY [address] | [address] | | | | | [address] | [place] [address] | | | | | [place] [address] | [phone] | | | | | [phone] | | | +--------+ + + + [...] [place] | | | | | | [address] | | | | | | | | +--------+---------+ + + + documented as of this encounter Procedures + +--------+ + + + | Procedure Name | Priori | Date/Time | Associated Diagnosis | Comments | | | ty | | | | + +--------+ + + + | XR LUMBAR SPINE 2 OR | Routin | 04/06/2015 | S/P lumbar fusion | Results for this | | 3 VW | e | 11:31 AM | | procedure are in the [...] 3 VW dated 04/06/2015 11:15 AM | [facility] | | HISTORY:Postop COMPARISON: Compared to lumbar spine x-rays dating | [facility] | | to June 18, 2014. FINDINGS:Frontal and lateral views of the [facility] | | lumbar spine. Posterior and interbody [...] Nointerval compression deformities. Stable severe compression deformity [id number] | | and more mild involving T11. [...] | + + + + + | [facility] | [facility] | [place] | [phone] | | [facility] | | [address] | | | - IMAGING | | | | + + + + + documented in this encounter Visit Diagnoses + + | Diagnosis | + + | S/P lumbar fusion Arthrodesis status | + + documented in this encounter"
--- OUTSIDE RECORDS SUMMARY | ~2019-07-02 | XMS | Encounter Summary ---
Demographics + + + | Address | [address] | | | [place] [address] | + + + | Home Phone [...] + | Author | [facility] | | | and Primo | + + + | Organization | [facility] | | | and [...] [place], [place] | | | | | [address] | | + + + + + | Dalton Fernandez | ECON | Unknown | | + + + + + | Juana Fernandez | ECON | Unknown | | + + + + + Care Team Providers + +------+ + | Care Pulmonologist Name | Role | Phone | + [...] Primary | Ramin Gonzalez, | [address] | | | | | localized | [address] | [place], | | | | | osteoarthros | [address] | [place] | | | | | is, lower | [place], | [address] | | | | | leg, right | [place] [address] | Phone: | | | | | Fitting and | Phone: | [phone] | | | | | adjustment | [phone] | Fax: | | | | | of | Fax: | [phone] | | | | | unspecified | [phone] | | | | | | prosthetic | | | | | | | device | | | | | | | Procedures | | | | | | | MRI Knee | | | | | | | Right wo | | | | | | | Contrast [place] | | | | | | | MRI LOWER | | | | | | | EXTREM JT, | | | | | | | W/O CONTRAST | | | +--------+--------+ + + + + Reason for Visit Diagnostic/Screening (Routine) +--------+--------+ + + + + | Status | Reason | Specialty | Diagnoses / | Referred By | Referred To | | | | | Procedures | Contact | Contact | +--------+--------+ + + + + | Closed | | Radiology | Diagnoses | Bess, | [facility] | | | | | Primary | Ramin L, | [address] | | | | | localized | [address] | [place], | | | | | osteoarthros | [address] | [place] | | | | | is, lower | [place], | [address] | | | | | leg, right | [place] [address] | Phone: | | | | | Fitting and | Phone: | [phone] | | | | | adjustment | [phone] | Fax: | | | | | of | Fax: | [phone] | | | | | unspecified | [phone] | | | | | | prosthetic | | | | | | | device | | | | | | | Procedures | | | | | | | MRI Knee | | | | | | | Right wo | | | | | | | Contrast [place] | | | | | | | MRI LOWER | | | | | | | EXTREM JT, | | | | | | | W/O CONTRAST | | | +--------+--------+ + + + + Encounter Details +--------+ + + + + | Date | Type | Department | Care Team | Description | +--------+ + + + + | 04/27/ | Hospital | [facility] | Ramin Bess | Primary localized | | 2014 | Encounter | MED CTR MRI [address] | MD Lisa [address] [place] [address] | osteoarthrosis, | | | | [address] [place], | [place], [place] | lower leg, right; | | | | [place] [address] | [address] | Fitting and | | | | [phone] | | adjustment of | | | | | | unspecified | | | | | | prosthetic device | +--------+ + + + + Social [...] | + +--------+ + + + | MRI KNEE RIGHT WO | Routin | 04/27/2015 | Primary localized | Results for this | | CONTRAST | e | 11:59 AM | osteoarthrosis, | procedure are in the | | | | PDT | lower leg, right | results section. | | | | | Fitting and | | | | | | adjustment of | | | | | | unspecified | | | | | | prosthetic device | | + +--------+ + + + documented in this encounter Results MRI Knee Right wo Contrast (04/27/2015 11:59 AM PDT) + + | Specimen | + + | | + + + + + | Narrative | Performed At | + + + | MRI RIGHT KNEE-CHRISTIANE: HISTORY: Christiane scan--repeat--no | [facility] | | charge TECHNIQUE: Prosthesis planning is performed according to | [facility] | | the Christiane protocol. IMPRESSION - Images were obtained and are | [facility] | | provided for preoperative planning and intraoperative surgical | - IMAGING | | guidance. Images are not for diagnostic interpretation. Dictated | | | and Signed by: Cecilio Weir MD Electronically signed: 04/27/2015 | | | 2:50 PM | | + + + + + | Procedure Note | + + | Vinod Rosen Results In - 04/27/2015 2:54 PM PDT MRI RIGHT KNEE-CHRISTIANE: | | | | HISTORY: Christiane scan--repeat--no charge | | | | TECHNIQUE: Prosthesis planning is performed according to the Christiane protocol. | | | | IMPRESSION - Images were obtained and are provided for preoperative planning and | | intraoperative surgical guidance. Images are not for diagnostic interpretation. | | | | Dictated and Signed by: Cecilio Weir MD | | Electronically signed: 04/27/2015 2:50 PM | + + + + + + + | Performing | Address | City/State/Zipcode | Phone Number | | Organization | | | | + + + + + | [facility] | [address] | [place], [place] | [phone] | | [facility] | | [address] | | | - IMAGING | | | | + + + + + documented in this encounter Visit Diagnoses + + | Diagnosis | + + | Primary localized osteoarthrosis, lower leg, right | + + | Fitting and adjustment of unspecified prosthetic device | + + documented in this encounter"
--- OUTSIDE RECORDS SUMMARY | ~2019-07-02 | XMS | Encounter Summary ---
Demographics + + + | Address | [address] | | | [place] [address] | + + + | Home Phone | | + + + | Preferred Language | Unknown | + + + | Marital Status | | + + + | Nondenominational Affiliation | 1076 | + + + | Race | Unknown | + + + | Ethnic Group | Unknown | + + + Author + + + | Author | [facility] | | | and Primo | + + + | Organization | [facility] | | | and [...] [place], [place] | | | | | [address] | | + + + + + | Dalton Fernandez | ECON | Unknown | | + + + + + | Juana Fernandez | ECON | Unknown | | + + + + + Care Team Providers + +------+ + | Care Butter Wrapper Name | Role | Phone | + +------+ + | Dutch Rodriguez DO | PCP | | + +------+ + Encounter Details +--------+ + + + + | Date | Type | Department | Care Team | Description | +--------+ + + + + | 09/27/ | Orders Only | [facility] [place] | Ramin Bess | Primary | | 2016 | | ORTHOPEDIC SURGERY | MD Lisa [address] [place] [address] | osteoarthritis of | | | | [address] [place] [address] | [place] | left knee; Fitting | | | | [place] | [address] | and adjustment of | | | | [address] | | prosthetic device | | | | [phone] | | | +--------+ + + + [...] [place] | | | | | | [address] | | | | | | | | +--------+---------+ + + + documented as of this encounter Visit Diagnoses + + | Diagnosis | + + | Primary osteoarthritis of left knee Primary localized osteoarthrosis, lower leg | + + | Fitting and adjustment of prosthetic device Fitting and adjustment of unspecified | | prosthetic device | + + documented in this encounter"
--- OUTSIDE RECORDS SUMMARY | ~2019-07-02 | XMS | Encounter Summary ---
Demographics + + + | Address | [address] | | | [place] [address] | + + + | Home Phone | | + + + | Preferred Language | Unknown | + + + | Marital Status | | + + + | Buddhism Affiliation | 1076 | + + + | Race | Unknown | + + + | Ethnic Group | Unknown | + + + Author + + + | Author | [facility] | | | and Primo | + + + | Organization | [facility] | | | and [...] [place], [place] | | | | | [address] | | + + + + + | Dalton Fernandez | ECON | Unknown | | + + + + + | Juana Fernandez | ECON | Unknown | | + + + + + Care Team Providers + +------+ + | Care Package Delivery Driver Name | Role | Phone | + [...] | | | | | [address] [facility] [address] | [place] [address] | | | | | [place] | [phone] | | | | | [address] | | | | | | [phone] | | | +--------+ + + + [...]
--- OUTSIDE RECORDS SUMMARY | ~2019-07-02 | XMS | Encounter Summary ---
Demographics + + + | Address | [address] | | | [place] [address] | + + + | Home Phone | | + + + | Preferred Language | Unknown | + + + | Marital Status | | + + + | Religion Affiliation | 1076 | + + + | Race | Unknown | + + + | Ethnic Group | Unknown | + + + Author + + + | Author | [facility] | | | and Primo | + + + | Organization | [facility] | | | [...] [place] | | | | | [address] | | + + + + + | Dalton Fernandez | ECON | Unknown | | + + + + + | Juana Fernandez | ECON | Unknown | | + + + + + Care Team Providers + +------+ + | Care Childcare Center Director Name | Role | Phone | [...] [address] | | | | | [facility] [address] | [place] [address] | | | | | [place] | [phone] | | | | | [address] | | | | | | [phone] | | | +--------+ + + + [...] [place] | | | | | | [address] | | | | | | | | +--------+---------+ + + + documented as of this encounter Visit Diagnoses Not on filedocumented in this encounter"
--- OUTSIDE RECORDS SUMMARY | ~2019-07-02 | XMS | Encounter Summary ---
Demographics + + + | Address | [address] | | | [place] [address] | + + + | Home Phone | | + + + | Preferred Language | Unknown | + + + | Marital Status | | + + + | Restorationism Affiliation | 1076 | + + + | Race | Unknown | + + + | Ethnic Group | Unknown | + + + Author + + + | Author | [facility] | | | and Primo | + + + | Organization | [facility] | | | [...] [place], [place] | | | | | [address] | | + + + + + | Dalton Fernandez | ECON | Unknown | | + + + + + | Juana Fernandez | ECON | Unknown | | + + + + + Care Team Providers + +------+ + | Care Director Of Knowledge Management Name | Role | Phone | + +------+ + | Dutch Rodriguez DO | PCP | | + +------+ + Reason for Referral Diagnostic/Screening (Routine) +--------+--------+ + + + + | Status | Reason | Specialty | Diagnoses / | Referred By | Referred To | | | | | Procedures | Contact | Contact | +--------+--------+ + + + + | Denied | | Radiology | Diagnoses | Shahriar, | [facility] | | | | | Primary | Ramin [place], | [address] | | | | | osteoarthrit | [address] | [place], | | | | | is of left | [address] | [place] | | | | | knee | [place], | [address] | | | | | Fitting and | [place] [address] | Phone: | | | | | adjustment | Phone: | [phone] | | | | | of | [phone] | Fax: | | | | | prosthetic | Fax: | [phone] | | | | | device | [phone] | | | | | | Procedures | | | | | | | MRI Knee | | | | | | | Left wo | | | | | | | Contrast | | | +--------+--------+ + + + + Encounter Details +--------+ + + + + | Date | Type | Department | Care Team | Description | +--------+ + + + + | 09/27/ | Orders Only | [facility] [place] | Ramin Bess | Primary | | 2015 | | ORTHOPEDIC SURGERY | MD Lisa [address] [place] [address] | osteoarthritis of | | | | [address] [place] [address] | [place] | left knee (Primary | | | | [place], [place] | [address] | Dx); Fitting and | | | | [address] | | adjustment of | | | | [phone] | | prosthetic device | +--------+ + [...] 2019 | Visit | | MD Lisa [address] [place] [address] | | | | | | [place] | | | | | | [address] | | | | | | | | +--------+---------+ + + + + +---------+--------+ + + | Name | Type | Priori | Associated Diagnoses | Order Schedule | | | | ty | | | + +---------+--------+ + + | MRI Knee Left wo | Imaging | Routin | Primary | Expected: | | Contrast | | e | osteoarthritis of | 09/27/2015, Expires: | | | | | left knee Fitting | 09/27/2016 | | | | | and adjustment of | | | | | | prosthetic device | | + +---------+--------+ + + documented as of this encounter Visit Diagnoses + + | Diagnosis | + + | Primary osteoarthritis of left knee - Primary Primary localized osteoarthrosis, lower | | leg | + + | Fitting and adjustment of prosthetic device Fitting and adjustment of unspecified | | prosthetic device | + + documented in this encounter"
--- OUTSIDE RECORDS SUMMARY | ~2019-07-02 | XMS | Encounter Summary ---
Demographics + + + | Address | [address] | | | [place] [address] | + + + | Home Phone [...] + | Author | [facility] | | | and Primo | + + + | Organization | [facility] | | [...] [place], [place] | | | | | [address] | | + + + + + | Dalton Fernandez | ECON | Unknown | | + + + + + | Juana Fernandez | ECON | Unknown | | + + + + + Care Team Providers + +------+ + | Care Core Paster Name | Role | Phone | + +------+ + | Dutch Rodriguez DO | PCP | | + +------+ + Reason for Visit +--------+ + | Reason | Comments | +--------+ + | Other | presurgical check-in | +--------+ + Encounter Details +--------+ + + + + | Date | Type | Department | Care Team | Description | +--------+ + + + + | 06/15/ | Telephone | [facility] | Douglas Nuñez MD | Other (presurgical | | 2013 | | NEUROSURGERY [address] | [address] | check-in ) | | | | [address] [facility] [address] | [place] [address] | | | | | [place] | [phone] | | | | | [address] | | | | | | [phone] | | | +--------+ + + + [...] [place] | | | | | | [address] | | | | | | | | +--------+---------+ + + + documented as of this encounter Visit Diagnoses Not on filedocumented in this encounter"
--- OUTSIDE RECORDS SUMMARY | ~2019-07-02 | XMS | Encounter Summary ---
Demographics + + + | Address | [address] | | | [place] [address] | + + + | Home Phone | | + + + | Preferred Language | Unknown | + + + | Marital Status | | + + + | Rastafari Affiliation | 1076 | + + + | Race | Unknown | + + + | Ethnic Group | Unknown | + + + Author + + + | Author | [facility] | | | and Primo | + + + | Organization | [facility] | | | and [place] [...] [place], [place] | | | | | [address] | | + + + + + | Dalton Fernandez | ECON | Unknown | | + + + + + | Juana Fernandez | ECON | Unknown | | + + + + + Care Team Providers + +------+ + | Care Floor Service Worker Spring Name | Role | Phone | + +------+ + | Dutch Rodriguez DO | PCP | | + +------+ + Encounter Details +--------+ + + + + | Date | Type | Department | Care Team | Description | +--------+ + + + + | 06/10/ | Hospital | [facility] | Douglas Nuñez MD | | | 2013 | Encounter | MED CTR LABORATORY | [address] [facility] [address] | | | | | [address] | [place] [address] | | | | | [place] | [phone] | | | | | [address] | | | | | | [phone] | | | +--------+ + + + [...] | Office | Orthopedic Surgery | Ramin Bses | | | 2018 | Visit | | MD Lisa [address] [place] [address] | | | | | | [place] | | | | | | [address] | | | | | | | | +--------+---------+ + + + documented as of this encounter Visit Diagnoses Not on filedocumented in this encounter"
--- OUTSIDE RECORDS SUMMARY | ~2019-07-02 | XMS | Encounter Summary ---
Demographics + + + | Address | [address] | | | [place] [address] | + + + | Home Phone | | + + + | Preferred Language | Unknown | + + + | Marital Status | | + + + | Voodoo Affiliation | 1076 | + + + | Race | Unknown | + + + | Ethnic Group | Unknown | + + + Author + + + | Author | [facility] | | | and Primo | + + + | Organization | [facility] | | | and [place] [...] [place], [place] | | | | | [address] | | + + + + + | Dalton Fernandez | ECON | Unknown | | + + + + + | Juana Fernandez | ECON | Unknown | | + + + + + Care Team Providers + +------+ + | Care Referral Rn Name | Role | Phone | + [...] | | ORTHOPEDIC SURGERY | MD Lisa [address] [place] [address] | (Primary Dx) | | | | [address] [facility] | [place] | | | | | [place] | [address] | | | | | [address] | | | | | | [phone] | | | +--------+ + + + [...] [place] | | | | | | [address] | | | | | | | [...] + + | Performing | Address | City[facility]State[facility] | Phone Number | | Organization | | | | + + + + + | [facility] [facility] | [address] | [place] | [phone] | | [facility] | | [address] | | | - IMAGING | | [...] The right knee shows no acute | [facility] | | findings. There is moderate medial [...] ST. | [address] | [place] | [phone] | | [facility] | | [address] | | | - IMAGING | | | | + + + + + documented in this encounter Visit Diagnoses + + | Diagnosis | + + | Bilateral knee pain - Primary Pain in joint, lower leg | + + documented in this encounter"
--- OUTSIDE RECORDS SUMMARY | ~2019-07-02 | XMS | Encounter Summary ---
Demographics + + + | Address | [address] | | | [place] [address] | + + + | Home Phone | | + + + | Preferred Language | Unknown | + + + | Marital Status | | + + + | Church Affiliation | 1076 | + + + | Race | Unknown | + + + | Ethnic Group | Unknown | + + + Author + + + | Author | [facility] | | | and Primo | + + + | Organization | [facility] | [...] [place], [place] | | | | | [address] | | + + + + + | Dalton Koroma | ECON | Unknown | | + + + + + | Juana Koroma | ECON | Unknown | | + + + + + Care Team Providers + +------+ + | Care Bucket Pusher Name | Role | Phone | + [...] | | Required | | pain | [facility] | [address] | | | | | | [place], | [place] | | | | | | [place] [address] | [place] | | | | | | Phone: | [address] Phone: | | | | | | [phone] | [phone] | | | | | | Fax: | Fax: | | | | | | [phone] | [phone] | +--------+ + + + + + Encounter Details +--------+---------+ + + + | Date | Type | Department | Care Team | Description | +--------+---------+ + + + | 05// | Office | [facility] | Ramin Huggins | Primary | | 2015 | Visit | ORTHOPEDIC SURGERY | MD Lisa [address] [facility] | osteoarthritis of | | | | [address] [facility] | [place] | both knees (Primary | | | | [place] | [address] | Dx) | | | | [address] | | | | | | [phone] | | | +--------+---------+ + + + [...] - 12/08/2014 4:49 PM PDTSee soap note [id number].Electronically sign ed by Ramin Huggins MD at 12/08/2014 4:49 PM PDTRamin Huggins MD - 4:48 PM PDT [facility] ORTHOPEDIC SURGERY [address] [place] [address] OFFICE NOTE RAMIN HUGGINS MD Patient: ANA KOROMA Admitting: MR #: [id number] LOC: PT TYPE: Adm Date: 12/08/2014 : 1950 IDENTIFICATION: Kristin Koroma is a 64-year-old female who sees Dr. Valencia, in [facility] or primary care. CHIEF COMPLAINT: Bilateral knee [...] Transcribed on 12/08/2014 20:32:46 by nitza job# [id number] Confirmation #: [id number] cc: DUTCH VALENCIA DO documented in this encounter Plan of Treatment +--------+---------+ + + + | Date | Type | Specialty | Care Team | Description | +--------+---------+ + + + | 07/22/ | Office | Orthopedic Surgery | Ramin Huggins | | | 2019 | Visit | | MD Lisa [address] [place] [address] | | | | | | [place] | | | | | | [id number] | | | | | | | | +--------+---------+ + + + documented as of this encounter Procedures + +--------+ + + + | Procedure Name | Priori | Date/Time | Associated Diagnosis | Comments | | | ty | | | | + +--------+ + + + | [facility] REFERRAL TO [facility] | Routin | 12/08/2014 | S/P lumbar [...]
--- OUTSIDE RECORDS SUMMARY | ~2019-07-02 | XMS | Encounter Summary ---
Demographics + + + | Address | [address] | | | [place] [address] | + + + | Home Phone | | + + + | Preferred Language | Unknown | + + + | Marital Status | | + + + | Episcopal Affiliation | 1076 | + + + | Race | Unknown | + + + | Ethnic Group | Unknown | + + + Author + + + | Author | [facility] | | | and Primo | + + + | Organization | [facility] | | | and [...] [place], [place] | | | | | [address] | | + + + + + | Dalton Koroma | ECON | Unknown | | + + + + + | Juana Koroma | ECON | Unknown | | + + + + + Care Team Providers + +------+ + | Care Outside Maintenance Worker Name | Role | Phone | [...] + + | 11/06/ | Office | [facility] | Ramin Huggins | S/P orthopedic | | 2017 | Visit | ORTHOPEDIC SURGERY | MD Swathi Gonzalez | surgery, follow-up | | | | [address] [facility] | [place] | exam (Primary Dx) | | | | [place] | [id number] | | | | | [address] | | | | | | [phone] | | | +--------+---------+ + + + [...] - 11/06/2016 5:54 PM PDTSejude soap note [id number].Electronically dakota d by Ramin Huggins MD at 11/06/2016 5:54 PM PDTHenRamin fierro MD - 11/06/2016 5:53 PM PDT [facility] ORTHOPEDIC SURGERY [address] [place] [id number] OFFICE NOTE RAMIN HUGGINS MD Patient: MYRIAM KOROMA Admitting: MR #: [id number] LOC: PT TYPE: Adm Date: 11/06/2016 : 1950 Myriam returns today for followup of her left distal thigh surgery, which included open red uction and internal fixation of a displaced unstable comminuted left periprosthetic supraco ndylar femur fracture utilizing a 13 mm diameter x 320 mm long [employer] retrograde femoral n ail with a 60 [...] Transcribed on 11/07/2016 16:12:52 by reynaldo job# [id number] Confirmation #: [id number] cc: DUTCH LUISANAJULIA DO documented in this [...]
--- OUTSIDE RECORDS SUMMARY | ~2019-07-02 | XMS | Encounter Summary ---
Demographics + + + | Address | [address] | | | [place] [address] | + + + | Home Phone | | + + + | Preferred Language | Unknown | + + + | Marital Status | | + + + | Faith Affiliation | 1076 | + + + | Race | Unknown | + + + | Ethnic Group | Unknown | + + + Author + + + | Author | [facility] | | | and Primo | + + + | Organization | [facility] | | | and [place] [...] [place], [place] | | | | | [address] | | + + + + + | Dalton Fernandez | ECON | Unknown | | + + + + + | Juana Fernandez | ECON | Unknown | | + + + + + Care Team Providers + +------+ + | Care Stamp Maker Name | Role | Phone | + +------+ + | Dutch Rodriguez DO | PCP | | + +------+ + Encounter Details +--------+ + + + + | Date | Type | Department | Care Team | Description | +--------+ + + + + | 06/10/ | Preadmit | [facility] | Douglas Nuñez MD | Gastric reflux; | | 2013 | Visit | [facility] | [address] | Migraine; | | | | CLINIC [address] | [place] [address] | Preoperative | | | | [place] | [phone] | clearance | | | | [address] | | | | | | [phone] | | | +--------+ + + + [...] Description | +--------+---------+ + + + | 12/17/ | Office | Orthopedic Surgery | Bess, Ramin | | | 2019 | Visit | | MD Swathi Gonzalez | | | | | | [place] | | | | | | [address] | | | | | | | | +--------+---------+ + + + documented as of this encounter Procedures + +--------+ + + + | Procedure Name | Priori | Date/Time | Associated Diagnosis | Comments | | | ty | | | | + +--------+ + + + | XR CHEST PA AND | Routin | 06/10/2014 | Gastric reflux | Results for this | | LATERAL | e | 9:49 AM | Migraine | procedure are in the | | | | PST | Preoperative | results section. | | | | | clearance | | + +--------+ + + + | CBC WITH | Routin | 06/10/2014 | Gastric reflux | Results for this | | DIFFERENTIAL | e | 9:14 AM | Migraine | procedure are in the | | | | PST | Preoperative | results section. | | | | | clearance | | + +--------+ + + + | BASIC METABOLIC | Routin | 06/10/2014 | Gastric reflux | Results for this | | PANEL | e | 9:14 AM | Migraine | procedure are in the | | | | PST | Preoperative | results section. | | | | | clearance | | + +--------+ + + + documented in this encounter Results XR Chest PA and Lateral (06/10/2014 9:49 AM PST) + + | Specimen | + + | | + + + + + | Narrative | Performed At | + + + | EXAM: XR CHEST PA AND LATERAL dated 06/10/2014 9:49 AM HISTORY: | MISCELANI[facility] | | preoperative clearance Comparison: None. TECHNIQUE: Frontal | LAB | | and lateral views of the chest. FINDINGS: Symmetric aeration of | | | the lungs. Lungs are clear. No pleural effusion or pneumothorax. | | | There is mild cardiomegaly. There is moderate enlargement of the | | | ascending aorta. There is a moderate-sized hiatal hernia. There is | | | a moderate to severe compression deformity of what is probably T12. | | | More mild deformity is seen at the T11 level and a mild deformity | | | seen at T9. Diffuse demineralization. IMPRESSION - No | | | acute pulmonary disease. Moderate enlargement of the ascending | | | aorta. This could represent aneurysmal dilatation. If this is an | | | unknown finding consider a dedicated thoracic aortic CTA. | | | Moderate hiatal hernia. Lower thoracic compression deformities | | | where T12 is moderate to severe. Dictated and Signed by: Cecilio Ramos | | | MD [place] Electronically signed: 06/10/2014 10:06 AM | | + + + + + | Procedure Note | + + | Silas, Rad Results In - 06/10/2014 10:09 AM PST EXAM: XR CHEST PA AND LATERAL dated | | 06/10/2014 9:49 AMHISTORY: preoperative clearanceComparison: None.TECHNIQUE: Frontal and | | lateral views of the chest.FINDINGS:Symmetric aeration of the lungs. Lungs are clear. | | No pleural effusion orpneumothorax. There is mild cardiomegaly. There is moderate | | enlargement of theascending aorta. There is a moderate-sized hiatal hernia. There is a | | moderateto severe compression deformity of what is probably T12. More mild deformity | | isseen at the T11 level and a mild deformity seen at T9. Diffusedemineralization. | | IMPRESSION -No acute pulmonary disease.Moderate enlargement of the ascending aorta. | | This could represent aneurysmaldilatation. If this is an unknown finding consider a | | dedicated thoracic aorticCTA.Moderate hiatal hernia.Lower thoracic compression | | deformities where T12 is moderate to severe. Dictated and Signed by: Cecilio Weir MD | | Electronically signed: 06/10/2014 10:06 AM | |to severe compression deformity of what is probably T12. More mild deformity is | |seen at the T11 level and a mild deformity seen at T9. Diffuse | |demineralization. | | | |IMPRESSION - | | | |No acute pulmonary disease. | | | |Moderate enlargement of the ascending aorta. This could represent aneurysmal | |dilatation. If this is an unknown finding consider a dedicated thoracic aortic | |CTA. | | | |Moderate hiatal hernia. | | | |Lower thoracic compression deformities where T12 is moderate to severe. | | | |Dictated and Signed by: Cecilio Weir MD | | Electronically signed: 06/10/2014 10:06 AM | + + + +---------+ + + | Performing | Address | City/State/Zipcode | Phone Number | | Organization | | | | + +---------+ + + | [facility] | | | [phone] | + +---------+ + + | [facility] | | | [phone] | + +---------+ + + CBC with Differential (06/10/2014 9:14 AM PST) + +-------+ + + + | Component | Value | Ref Range | Performed | Pathologist | | | | | At | Signature | + +-------+ + + + | WBC | 5.1 | 4.0 - 11.0 K/uL | [facility] | | | | | | [facility] | | | | | | [facility] | | | | | [facility] - | | | | | | LABORATORY | | + +-------+ + + + | RBC | 4.48 | 3.70 - 5.20 | [facility] | | | | | M/uL | [facility] | | | | | | [facility] | | | | | | C[facility] - | | | | | | LABORATORY | | + +-------+ + + + | Hemoglobin | 13.1 | 11.5 - 16.0 | [facility] | | | | | g/dL | [facility] | | | | | | [facility]ICAL | | | | | | CENTER - | | | | | | LABORATORY | | + +-------+ + + + | Hematocrit | 40.8 | 34.0 - 47.0 % | [facility] | | | | | | [facility] | | | | | | [facility] | | | | | | [facility] - | | | | | | LABORATORY | | + +-------+ + + + | MCV | 91.2 | 83.0 - 101.0 fL | [facility] | | | | | | [facility] | | | | | | [facility]ICAL | | | | | | CENTER - | | | | | | LABORATORY | | + +-------+ + + + | MCH | 29.1 | 28.0 - 35.0 pg | [facility] | | | | | | [facility] | | | | | | MEDICAL | | | | | | CENTER - | | | | | | LABORATORY | | + +-------+ + + + | MCHC | 32.0 | 32.0 - 36.0 | [facility] | | | | | g/dL | [facility] | | | | | | [facility]ICAL | | | | | | CENTER - | | | | | | LABORATORY | | + +-------+ + + + | RDW-CV | 14.0 | <15.0 % | [facility] | | | | | | [facility] | | | | | | [facility] | | | | | | CENTER - | | | | | | LABORATORY | | + +-------+ + + + | Platelet | 296 | 140 - 440 K/uL | [facility] | | | Count | | | [facility] | | | | | | MEDICAL | | | | | | CENTER - | | | | | | LABORATORY | | + +-------+ + + + | MPV | 8.2 | fL | [facility] | | | [...] +-------+ + + + | % | 29.6 | 20.0 - 45.0 % | [facility] | | | Lymphocytes | | | [facility] | | | | | | MEDICAL | | | | | | CENTER - | | | | | | LABORATORY | | + +-------+ + + + | % Monocytes | 7.6 | 4.0 - 12.0 % | [facility] | | | | | | [facility] | | | | | | MEDICAL | | | | | | CENTER - | | | | | | LABORATORY | | + +-------+ + + + | % | 2.6 | 0.0 - 5.0 % | [facility] [...] +-------+ + + + | Absolute | 3.00 | 1.80 - 8.50 | [facility] | | | Neutrophils | | K/uL | [facility] | | | | | | MEDICAL | | | | | | CENTER - | | | | | | LABORATORY | | + +-------+ + + + | Absolute | 1.50 | 0.60 - 3.20 | [facility] | [...] +-------+ + + + | Absolute | 0.10 [...] + | [facility] | [address] | [place] | [phone] | | [facility] | | [address] | | | - LABORATORY | | | | + + + + + | [facility] | [address] | [place] | | | [facility] | | [address] | | | - LABORATORY | | | | + + + + + Basic Metabolic Panel (06/10/2014 9:14 AM PST) + + + + + + | Component | Value | Ref Range | Performed | Pathologist | | | | | At | Signature | + + + + + + | Na | 138 | 136 - 149 | [facility] | | | | | mmol/L | [facility] | | | | [...] + + + + | Cl | 103 | 98 - 109 mmol/L | [facility] | | | | | | [facility] | | | | | | MEDICAL | | | | | | CENTER - | | | | | | LABORATORY | | + + + + + + | CO2 | 29 | 24 - 31 mmol/L | [facility] [...] + + + + | Glucose | 87 | 70 - 109 mg/dL | [facility] | | | | | | [facility] | | | | | | MEDICAL | | | | | | CENTER - | | | | | | LABORATORY | | + + + + + + | BUN | 15 | 7 - 18 mg/dL | [facility] | | | | | | [facility] | | | | | | MEDICAL | | | | | | CENTER - | | | | | | LABORATORY | | + + + + + + | Creatinine | 0.70 | 0.60 - 1.30 | [facility] | | | | | mg/dL | [facility] | | | | | | MEDICAL | | | | | | CENTER - | | | | | | LABORATORY | | + + + + + + | eGFR if not | >60Comment: GLOMERULAR | >=60 | [facility] | | | | FILTRATION | mL/min/1.73m2 | [facility] | | | LATVIAN | RATE,ESTIMATED | | MEDICAL | | | | mL/min/1.41p9Icud than | | CENTER - | | [...] | 9.3 | 8.3 - 10.5 | [facility] | | | | | mg/dL | [facility] | | | | | | MEDICAL | | | | | | CENTER - | | | | | | LABORATORY | | + + + + + + | BUN/Creatin | 21.4 | | [facility] | | | ine [...] ST. | [address] | [place] | [phone] | | [facility] | | [address] | | | - LABORATORY | | | | + + + + + | [facility] | [address] | [place], [place] | | | [facility] | | [address] | | | - LABORATORY | | | | + + + + + documented in this encounter Visit Diagnoses + + | Diagnosis | + + | Gastric reflux Esophageal reflux | + + | Migraine Migraine, unspecified, without mention of intractable migraine without | | mention of status migrainosus | + + | Preoperative clearance Preoperative examination, unspecified | + + documented in this encounter"
--- OUTSIDE RECORDS SUMMARY | ~2019-07-02 | XMS | Encounter Summary ---
Demographics + + + | Address | [address] | | | [place] [address] | + + + | Home Phone | | + + + | Preferred Language | Unknown | + + + | Marital Status | | + + + | Oriental Orthodox Affiliation | 1076 | + + + | Race | Unknown | + + + | Ethnic Group | Unknown | + + + Author + + + | Author | [facility] | | | and Primo | + + + | Organization | [facility] | | | and [...] [place], [place] | | | | | [address] | | + + + + + | Dalton Fernandez | ECON | Unknown | | + + + + + | Juana Fernandez | ECON | Unknown | | + + + + + Care Team Providers + +------+ + | Care Plating Stripper Name | Role | Phone | + [...] + + | 04/06/ | Office | [facility] | Nino Hurst | 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 MIREYA Estrella [address] [facility] [address] [place], [place] [address] FAX: NEUROSURGERY FOLLOW-UP CHIEF COMPLAINT: Chief Complaint [...] [place] | | | | | | [address] | | | | | | | [...]
--- OUTSIDE RECORDS SUMMARY | ~2019-07-02 | XMS | Encounter Summary ---
Demographics + + + | Address | [address] | | | [place] [address] | + + + | Home Phone [...] | Author | [facility] | | | and Primo | + + + | Organization | [facility] [...] [place], [place] | | | | | [address] | | + + + + + | Dalton Fernandez | ECON | Unknown | | + + + + + | Juana Fernandez | ECON | Unknown | | + + + + + Care Team Providers + +------+ + | Care Gate Shear Operator Name | Role | Phone | [...] Description | +--------+--------+ + + + | 04/21/ | Refill | [facility] | Zachery Soria | Medication Refill | | 2018 | | ORTHOPEDIC SURGERY | [address] | | | | | [address] [facility] | [facility] | | | | | [place] | [place] [address] | | | | | [address] | [phone] | | | | | [phone] | | | +--------+--------+ + + + [...] [place] | | | | | | [id number] | | | | | | | | +--------+---------+ + + + documented as of this encounter Visit Diagnoses Not on filedocumented in this encounter"
--- OUTSIDE RECORDS SUMMARY | ~2019-07-02 | XMS | Encounter Summary ---
Demographics + + + | Address | [address] | | | [place] [address] | + + + | Home Phone | | + + + | Preferred Language | Unknown | + + + | Marital Status | | + + + | Jew Affiliation | 1076 | + + + | Race | Unknown | + + + | Ethnic Group | Unknown | + + + Author + + + | Author | [facility] | | | and Primo | + + + | Organization | [facility] | [...] [place], [place] | | | | | [address] | | + + + + + | Dalton Fernandez | ECON | Unknown | | + + + + + | Juana Fernandez | ECON | Unknown | | + + + + + Care Team Providers + +------+ + | Care School Supervisor Name | Role | Phone | + +------+ + | Dutch Rodriguez DO | PCP | | + +------+ + Reason for Visit + + + | Reason | Comments | + + + | Follow-up | ORIF IM femoral DOS 10/23/17 | + + + Encounter Details +--------+---------+ + + + | Date | Type | Department | Care Team | Description | +--------+---------+ + + + | 01/14/ | Office | [facility] | Zachery Soria | S/P orthopedic | | 2018 | Visit | ORTHOPEDIC SURGERY | [address] | surgery, follow-up | | | | [address] [facility] | [facility] | exam (Primary Dx); | | | | [place] | [place] [address] | Sprain of collateral | | | | [address] | [phone] | ligament of left | | | | [phone] | | knee, initial | | | | | | encounter | +--------+---------+ + + + Social History [...] Weight | 77.1 kg (170 lb) | 01/14/2018 2:43 PM | | | | | PDT | | + + + + + | Height | 162.6 cm (5' 4") | 01/14/2018 2:43 PM | | | | | PDT | | + + + + + | Body Mass Index | 29.18 | 01/14/2018 2:43 PM | | | | | PDT [...] encounter Progress Notes Zachery Soria PA-C - 01/14/2018 2:45 PM PDTFormatting of this note might be differe nt from the original. Name:Ana Fernandez Todays Date: 01/14/2018 Age: 67 y.o. PCP: Dutch Rodirguez DO Chief Complaint Patient presents with Follow-up ORIF IM femoral DOS 10/23/17 SUBJECTIVE: Returns today with concerns of the loose screw at the left knee will be performed ORIF with retrograde intramedullary femoral rodding on 10/23/16. She received; Dr. Rmain Bess when this was identified. She describes that she did start doing some pain this past and the need to start to hurt and swell. She states that when she saw Dr. Bess a fe w weeks ago he verbalized that we could remove this if it became painful. She identifies pain as occurring at the medial aspect of the knee. Does not recall any inciting incident trauma that happen last . Current level pain is 0 OBJECTIVE: Inspection of the incision sites at the left knee revealed they have healed appropriately a nd well. Full range of motion without any pain. She is full weightbearing today. Ambulate s without assistance. No abnormal gait observed today. The screw that is slightly backed o ut is actually on the lateral aspect of the knee and has able to easily palpate this today. This caused her absolutely no pain with palpation. Pain observed of the medial aspect of t he knee when palpating the MCL and the patellofemoral ligament. Imaging/Studies: Xr Knee Left 1 - 2 Vw Result Date: 01/01/2018 CLINICAL INFORMATION: S/P ORIF RETROGRADE IM FEMORAL DOS 10/23/16. COMPARISON: 01/25/2017. FI NDINGS/IMPRESSION - 2 views of the left knee. Total knee arthroplasty changes, the femoral a nd tibial components appear well seated. Intramedullary diogo and screw fixation of the dista l femoral fracture which demonstrates sclerosis and bony remodeling consistent with healed f racture. Probable small joint effusion. Dictated and Signed by: MD Chris Rodriguez signed: 01/01/2018 7:45 PM Vitals: 01/14/18 1443 Weight: 77.1 kg (170 lb) Height: 1.626 m (5' 4") ASSESSMENT/PLAN: 1. Left knee sprain A. the left knee is screw is backed out but does not appear to be the cause of any of her pain or discomfort today. I will not pursue any hardware removal at this time. Recommended conservative measures given that her pain appears to be secondary to soft tissue pathology. Condition of cautious observation. No high impact activities. Follow-up when necessary i f still having pain in the next few months. B. Patient is advised that if they have any questions, comments or concerns to contact our office. Electronically signed by: Zachery Soria PA-C 01/14/2018 16:48 This note was dictated using the [employer] voice recognition system. Minor errors in grammar may have occurred. documented in t his encounter Plan of Treatment +--------+---------+ + + + | Date | Type | Specialty | Care Team | Description | +--------+---------+ + + + | 07/22/ | Office | Orthopedic Surgery | Ramin Bess | | | 2018 | Visit | | MD Lisa [facility] | | | | | | [place] | | | | | | [phone] | | | | | | | | +--------+---------+ + + + documented as of this encounter Visit Diagnoses + + | Diagnosis | + + | S/P orthopedic surgery, follow-up exam - Primary Follow-up examination, following | | other surgery | + + | Sprain of collateral ligament of left knee, initial encounter | + + documented in this encounter
--- OUTSIDE RECORDS SUMMARY | ~2019-07-02 | XMS | Encounter Summary ---
Demographics + + + | Address | [address] | | | [place] [address] | + + + | Home Phone [...] + | Author | [facility] | | | and Primo | + + + | Organization | [facility] | | | and Norrisana [...] [place], [place] | | | | | [address] | | + + + + + | Dalton Fernandez | ECON | Unknown | | + + + + + | Juana Fernandez | ECON | Unknown | | + + + + + Care Team Providers + +------+ + | Care Flatwork Feeder Name | Role | Phone | + [...] Closed | | Radiology | Diagnoses | Douglas Nuñez | [facility] | | | | | | MD [address] | [address] | | | | | Hyperreflexi | [address] | [place], | | | | | a | [place] | [place] | | | | | Procedures | [place] [address] | [address] | | | | | MRI Cervical | Phone: | Phone: | | | | | Spine wo | [phone] | [phone] | | | | | Contrast | Fax: | Fax: | | | | | | [phone] | [phone] | +--------+--------+ + + + + Reason for Visit + + + | Reason | Comments | + + + | New Patient | Back Pain | + + + Evaluate & Treat (Routine) +--------+--------+ + + + + | Status | Reason | Specialty | Diagnoses / | Referred By | Referred To | | | | | Procedures | Contact | Contact | +--------+--------+ + + + + | Closed | | Neurosurgery | Diagnoses | Sahra, | Douglas Nuñez | | | | | Compression | Aditya Christianson MD [address] | | | | | fracture of | MD [address] | | | | | lumbar | [address] | [place], [place] | | | | | vertebrae, | [place], | [address] | | | | | non-traumati | [place] [address] | Phone: | | | | | c ([facility]) | Phone: | [phone] | | | | | COLLAPSE OF | [phone] | Fax: | | | | | LUMBAR | Fax: | [phone] | | | | | VERTEBRAE | [phone] | | | | | | Procedures | | | | | | | [place] OFFICE | | | | | | | CONSULTATION | | | | | | | NEW/ESTAB | | | | | | | PATIENT 60 | | | | | | | MIN | | | +--------+--------+ + + + + Encounter Details +--------+---------+ + + + | Date | Type | Department | Care Team | Description | +--------+---------+ + + + | 03/13/ | Office | [facility] | Douglas Nuñez MD | Spondylolisthesis of | | 2013 | Visit | NEUROSURGERY [address] | [address] | lumbar region | | | | [address] | [place] [address] | (Primary Dx); Lumbar | | | | [place] | [phone] | radiculopathy; | | | | [id number] | | Foraminal stenosis | | | | [phone] | | of lumbar region; | | | | | | Hyperreflexia; | | | | | | Compression fracture | | | | | | of thoracic | | | | | | vertebra, sequela | +--------+---------+ + + + Social History [...] + + + | Blood Pressure | 114/71 | 03/13/2014 2:16 PM | | | | | PDT | | + + + + + | Pulse | 99 | 03/13/2014 2:16 PM | | | | | PDT | | + + + + + | Temperature | - | - | | + + + + + | Respiratory Rate | 18 | 03/13/2014 2:16 PM | | | | | PDT | | + + + + + | Oxygen Saturation | - | - | | + + + + + | Inhaled Oxygen | - | - | | | Concentration | | | | + + + + + | Weight | 72.6 kg (160 lb) | 03/13/2014 2:16 PM | | | | | PDT | | + + + + + | Height | 164.5 cm (5' 4.75") | 03/13/2014 2:16 PM | | | | | PDT | | + + + + + | Body Mass Index | 26.83 | 03/13/2014 2:16 PM | | | | | PDT | | + + + + + documented in this encounter Patient Instructions Patient Instructions Douglas Nuñez MD - 03/13/2014 3:42 PM Lukas discussed the option for a lumbar fusion to treat your spinal condition. I favored an posterior fusion with posterio r instrumentation in the form of a TLIF or Transforaminal Lumbar Interbody Fusion. You can research this procedure more by going to: http://[email or web address].com/silvio Click the Treatment Options link on the left column. Then, look for Transforaminal Lumbar Interbody Fusion (TLIF) under Surgical Options. documented in this encounter Progress Notes Douglas Nuñez MD - 03/13/2014 12:45 PM PDTFormatting of this note might be different from t he original. Douglas Nuñez M.D., [place], [place] [address] [facility], [address] [place] [address] FAX: NEUROSURGERY HISTORY AND PHYSICAL EXAMINATION CHIEF COMPLAINT: Chief Complaint Patient presents with New Patient Back Pain HISTORY OF PRESENT ILLNESS: The patient is a 63 y.o. female with the complaint of low back pain and left leg numbness this patient states that gently she felt pretty good as far as er low back and her legs until in May of this last year she slipped and fell on ice. Af ter that she had low back pain which was really quite intense. Two days after the fall she had had enough back pain that she had to go to the emergency department. She was told at th at time she had a fracture of her back and was given medication and asked to followup with er primary care back surgeon in the future. Unfortunately, the patient is continued to have low back pain which is fairly severe and at times is at a level of 9/10. She does have azeem e periods of time when it improves but generally bothers her all the time. In November of this year she started noticing numbness in the lateral portion of her left thigh extending into the lateral calf and into her great toe on the left side the patient denies any upper extrem ity problems other than some occasionally tingling in the fifth fingers bilaterally. No los s of fine motor skills or balance problems. Her symptoms improve with resting, medications. Her symptoms worsen with standing, long walking this, prolonged position. Her has tried physical therapy medications. PAST MEDICAL HISTORY: Past Medical History [...] no rheumatoid arthritis. PHYSICAL EXAMINATION: Blood pressure 114/71, pulse 99, resp. rate 18, height 1.645 m (5' 4.75"), weight 72.576 kg (160 lb). Body mass index is 26.82 kg/(m^2). GENERAL: Mike Fernandez is in no acute distress with unlabored respirations. The gregg ent does appear uncomfortable throughout the exam today. HEENT: HEAD/FACE: EYES: EARS: NASOPHARNYX: OROPHARNYX: Normocephalic and atraumatic. There are no areas of recent trauma. Normal sclerae without icterus. No drainage or tenderness. Clear without drainage. Clear without erythema. NECK (ANTERIOR): Supple and without palpable masses. CHEST: Clear to ausculation without crackles or wheeze. HEART: Regular rate and rhythm without murmurs. ABDOMEN: Soft, non-tender, non-distended, and without palpable masses. The patient is obe se. SPINE: There is no tenderness in the midline of the cervical or thoracic spine. There is n o major palpable deformity of the spine. The lumbar spine shows there is tenderness in the midline of the L2, L3, L4, L5, S1 levels. To palpation, there is signficant right myofascial tenderness. EXTREMITIES: No cyanosis, clubbing, or edema. Distal pulses are palpable. NEUROLOGICAL EXAM: MENTAL STATUS: The patient is awake, alert, and oriented. She follows simple and complex commands. She speech is fluent, she comprehends speech well, and she repeats well. She has no apparent deficits with short or long term care social worker memory. CRANIAL NERVES: Fundoscopic Exam: The optic disc is sharp. Normal vascular pattern is visualized II: Acuity is intact. Ortiz are full to confrontation. III, IV, : The pupils are reactive. Extraocular movements are intact. No ptosis is note d. V: Facial sensation is intact and symmetric. VII: Facial movements are symmetric. VIII: Hearing is intact bilaterally. IX, X: The uvula and palate move appropriately. XI: Shrug is equal bilaterally. XII: Tongue protrusion is midline. MOTOR EXAM: (5 IS NORMAL) * Indicates pain limited MUSCLE/ MOVEMENT: RIGHT LEFT Deltoids 5 5 Biceps 5 5 Triceps 5 5 Wrist Flexion 5 5 Wrist Extension 5 5 Median Intrinsics 5 5 Ulnar Intrinsics 5 5 Wool Hat Finisher Strength 5 5 Hip Flexion 5 5 [...] stenosis of the canal and foramen at that segment. There are two healed compression fractures of the thoracic spine without cord compression. ASSESSMENT: NEUROSURGICAL DIAGNOSES: Encounter Diagnoses Name Primary? Spondylolisthesis of lumbar region Yes Lumbar radiculopathy Foraminal stenosis of lumbar region Hyperreflexia Compression fracture of thoracic vertebra, sequela GENERAL DIAGNOSES: Past Medical History Diagnosis Date Gastric reflux Migraine PLAN: It was a pleasure meeting and evaluating this patient today, and I greatly appreciate the alexandria sánchez. The patient has lumbar spondylolisthesis as her likely cause of leg symptoms. I had a lengthy discussion with the patient about her options for care including surgical a nd non-surgical options. I actually favored try to understand why she has hyperreflexia bef ore making any decisions. I would like her to get a cervical MRI and then return to review it and her options again. [place]st and I spent 1 hour in visit with PaulDanieleEma Fernandez today with the majority of t robles spent counselling the patient on her diagnosis, options for her care, and coordinating h er care. ELECTRONICALLY SIGNED BY: [place] Hurst PA-C, and Douglas Nuñez M.D. 03/13/2014 15:45 documented in this encou nter Plan of Treatment +--------+---------+ + + + | Date | Type | Specialty | Care Team | Description | +--------+---------+ + + + | 07/22/ | Office | Orthopedic Surgery | Ramin Bess | | | 2018 | Visit | | MD Lisa [facility] | | | | | | [place] | | | | | | [id number] | | | | | | | | +--------+---------+ + + + + +---------+--------+ + + | Name | Type | Priori | Associated Diagnoses | Order Schedule | | | | ty | | | + +---------+--------+ + + | MRI Cervical Spine | Imaging | Routin | Hyperreflexia | Expected: 03/23/2014 | | wo Contrast | | e | | (Approximate), | | | | | | Expires: 03/12/2015 | + +---------+--------+ + + documented as of this encounter Visit Diagnoses + + | Diagnosis | + + | Spondylolisthesis of lumbar region - Primary Acquired spondylolisthesis | + + | Lumbar radiculopathy Thoracic or lumbosacral neuritis or radiculitis, unspecified | + + | Foraminal stenosis of lumbar region Spinal stenosis, lumbar region, without | | neurogenic claudication | + + | Hyperreflexia Abnormal reflex | + + | Compression fracture of thoracic vertebra, sequela | + + documented in this encounter
--- OUTSIDE RECORDS SUMMARY | ~2019-07-02 | XMS | Encounter Summary ---
Demographics + + + | Address | [address] | | | [place] [address] | + + + | Home Phone | | + + + | Preferred Language | Unknown | + + + | Marital Status | | + + + | Roman Catholic Affiliation | 1076 | + + + | Race | Unknown | + + + | Ethnic Group | Unknown | + + + Author + + + | Author | [facility] | | | and Primo | + + + | Organization | [facility] | | | and [place] | [...] [place], [place] | | | | | [address] | | + + + + + | Dalton Fernandez | ECON | Unknown | | + + + + + | Juana Fernandez | ECON | Unknown | | + + + + + Care Team Providers + +------+ + | Care Supervisor Fertilizer Name | Role | Phone | + [...] | | | | | | | osteoarthrit | | | | | | | is of left | | | | | | | knee | | | | | | | Primary | | | | | | | osteoarthrit | | | | | | | is of left | | | | | | | knee | | | | | | | [M17.12] | | | | | | | Procedures | | | | | | | PA TOTAL | | | | | | | KNEE | | | | | | | ARTHROPLASTY | | | | | | | | | | | | | | ARTHROPLASTY | | | | | | | KNEE | | | +--------+--------+ + + + + Encounter Details +--------+ + + + + | Date | Type | Department | Care Team | Description | +--------+ + + + + | 02/08/ | Anesthesia | [facility] | Srinivasan Albright | | | 2015 | Event | [facility] | MD Carly [address] | | | | | [address] | [address] [facility] | | | | | [place], [place] | [place] [address] | | | | | [id number] | [phone] | | | | | [phone] | | | +--------+ + + + + Anesthesia Record + + + + + | Procedure Name | Responsible | Anesthesia Start | Anesthesia Stop Time | | | Anesthesiologist | Time | | + + + + + | Left Total Knee | Srinivasan Albright, | 02/09/16 0741 | 02/09/16 0950 | | Arthroplasty (Left | MD | | | | Knee) | | | | + + + + + +----+---+ + + | Da | T | Event | Comment | | te | i | | | | | m | | | | | e | | | +----+---+ + + | 07 | 0 | | | | /0 | 7 | | | | 6/ | 1 | | | | 20 | 6 | | | | 16 | | | | +----+---+ + + | | 0 | An Checkout | Pre-use anesthesia machine/equipment checkout. | | | 7 | | | | | 1 | | | | | 6 | | | +----+---+ + + | | 0 | Beta | The patient is not on a beta-alison at home. | | | 7 | Alison | | | | 2 | Declined | | | | 2 | | | +----+---+ + + | | 0 | Antibiotic | | | | 7 | Given | | | | 2 | | | | | 2 | | | +----+---+ + + | | 0 | An Start | | | | 7 | Data | | | | 2 | | | | | 2 | | | +----+---+ + + | | 0 | Block Start | | | | 7 | | | | | 2 | [...] | 7 | | | | | 4 | | | | | 1 | | | +----+---+ + + | | 0 | Preoxygenat | | | | 7 | ed | | | | 5 | | | | | 0 | | | +----+---+ + + | | 0 | An | | | | 7 | Induction | | | | 5 | | | | | 2 | | | +----+---+ + + | | 0 | An | | | | 7 | Intubation | | | | 5 | | | | | 3 | | | +----+---+ + + | | 0 | [place] | | | | 8 | 43-degrees | | | | 0 | | | | | 0 | | | +----+---+ + + | | 0 | An Tourn | | | | 8 | Inflated | | | | 1 | | | | | 2 | | | +----+---+ + + | | 0 | First | | | | 8 | Inc/Proc St | | | | 1 | | | | | 3 | | | +----+---+ + + | | 0 | An Tourn | | | | 9 | Deflated | | | | 1 | | | | | 2 | | | +----+---+ + + | | 0 | [place] off | | | | 9 | | | | | 4 | | | | | 3 | | | +----+---+ + + | | 0 | Extubated | | | | 9 | Awake | | | | 4 | | | | | 3 | | | +----+---+ + + | | 0 | an stop | | | | 9 | data | | | | 4 | | | | | 3 | | | +----+---+ + + | | 0 | An Stop | Patient handed off to recovery nurse. | | | 5 | | | | | 0 | | | +----+---+ + + +------+ | Meds | +------+ + + + | Name | Total | + + + | midazolam | 2 mg | + + + | fentaNYL injection (2 mL) | 50 mcg | + + + | lidocaine 2% (PF) | 10 mL | + + + | lidocaine 2% | 50 mg | + + + | ropivacaine 0.5% | 20 mL | + + + | propofol (DIPRIVAN) injection | 100 mg | | (bolus) (20 mL) | | + + + | phenylephrine (Injection) | 500 mcg | + + + | dexamethasone | 10 mg | + + + | ceFAZolin (ANCEF, KEFZOL) 2 g in | 2 g | | sodium chloride 0.9% 50 mL IVPB | | + + + | ondansetron (ZOFRAN) injection 4 | 4 mg | | mg | | + + + | tranexamic acid in 50 mL NS | 2 g | | (CYKLOKAPRON) IVPB (simple) 1 g | | + + + | lactated ringers (LR) infusion | 1,000 mL | + + + + + [...] Removal | +--------+ + + + | Read | 05/26/15; 08; Right:; leg; | 05/26/15 0814 by | 10/29/18 1342 by | | only - | 10/29/18 (Completed/Removed by | Jack Pantoja RN | User Epic | | | Utility); 1342 (Completed/Removed | | | | Incisi | by Utility) | | | | on | | | | +--------+ + + + | Brace/ | 05/26/15; 1314; CPM (continuous | 05/26/15 1314 by | 02/12/16 1325 by | | Orthot | passive motion); left knee; short | Michelle Whitfield PT | Amaris Peralta RN | | ic/Ort | term use; 02/12/16; 1325 | | | | hosis | | | | +--------+ + + + | Periph | 02/09/16; 0708; Left; Lateral; | 02/09/16 0708 by | 02/12/16 0000 by | | eral | Wrist; [id number]-rhanni catheter | Sabrina Horton RN | Amaris Peralta RN | | IV | system; 18 gauge, 1 08/09 in | | | | | length; distraction, intradermal | | | | | injection, tolerated well; short | | | | | term use; 02/12/16; 0000 | | | +--------+ + + + | Airway | Placement Date: 02/09/16; | 02/09/16 0753 by Tor | 02/09/16 0943 by Tor | | | Placement Time: 075 (created via | Carly Albright MD | Carly Albright MD | | | procedure documentation); Mask | | | | | Ventilation: EZ; Attempts: 1; | | | | | Airway Type: laryngeal mask; | | | | | Size: 3; Placement Check: exhaled | | | | | CO2 detection device; Removal | | | | | Date: 02/09/16; Removal Time: | | | | | 0943 | | | +--------+ + + + | Read | 02/09/16; 0842; Left; leg; | 02/09/16 0842 by | 02/12/16 1325 by | | only - | healing within expectations; | Sherie Arboleda, | Amaris Peralta RN | | | 02/12/16; 1325 | RN | | | Incisi | | | [...] ZURITA | | | | | | [phone] | | | | | | | | +--------+---------+ + + + documented as of this encounter Procedures + +--------+ + + + | Procedure Name | Priori | Date/Time | Associated Diagnosis | Comments | | | ty | | | | + +--------+ + + + | ANE NERVE BLOCK | Routin | 02/09/2016 | | Results for this | | CATHETER NOTE | e | 8:14 AM | | procedure are in the | | | | PDT | | results section. | + +--------+ + + + documented in this encounter Results Anesthesia Airway Note (02/09/2016 8:14 AM PDT) + + + | Narrative | Performed At | + + + | Srinivasan Albright MD 02/09/2016 8:14 Perineural Procedure | | | Note 02/09/2016 7:27 Nerve block: femoral Laterality: left | | | Provider requested procedure: Dr Ramin Bess MD Indication: | | | postoperative analgesia Preprocedure check: patient identified, | | | procedure and rescue equipment checked, preevaluation including | | | airway assessment complete, risks/benefits discussed, consent | | | obtained, timeout performed, reassessment prior to procedure and | | | monitors applied Patient position: supine Preparation: | | | chlorhexidine/isopropyl alcohol, 1% lidocaine infiltration | | | Technique: ultrasound Radiology image stored in patient's chart: | | | ultrasound Needle: echogenic, stimulating, insulated and short-bevel | | | Needle size: 21 g Needle length: 4 in Medication administered | | | through: needle Negative findings: no blood aspirated and no | | | paresthesia Total volume of local anesthetic solution administered: | | | 15 Ease of procedure: 1 Attempts: easy Comments: SpO2, NBP | | | monitored during procedure and recorded in anesthesia record. | | | Ultrasound used to identify femoral artery and femoral nerve. | | | Under continuous ultrasound guidance the Stimuplex needle was | | | advanced to the femoral nerve proximity with needle tip visualized | | | throughout. 10ml 0.5% Ropivacaine with 5ml 2% lidocaine was | | | injected in 5 ml increments around the femoral nerve with | | | intermittent negative aspiration and no paresthesias. Ultrasound | | | image placed in chart. Please see anesthesia record or | | | flowsheet for vital sign documentation and see anesthesia record or | | | MAR for all medication documentation. Performing provider: | | | SRINIVASAN ALBRIGHT Electronically Signed by: Srinivasan Coyle | | | MD Jeannette ESig date/time: 02/09/2016 | | | 8:05 Perineural Procedure Note 02/09/2016 7:35 Nerve block: | | | popliteal sciatic Laterality: left Provider requested procedure: | | | Ramin Bess Indication: postoperative analgesia | | | Preprocedure check: patient identified, procedure and rescue | | | equipment checked, preevaluation including airway assessment | | | complete, risks/benefits discussed, consent obtained, timeout | | | performed, reassessment prior to procedure and monitors applied | | | Patient position: right lateral Preparation: chlorhexidine/isopropyl | | | alcohol, 1% lidocaine infiltration Technique: ultrasound Radiology | | | image stored in patient's chart: ultrasound Needle: echogenic, | | | stimulating, insulated and short-bevel Needle size: 22 g Needle | | | length: 4 in Medication administered through: needle Negative | | | findings: no blood aspirated and no paresthesia Total volume of local | | | anesthetic solution administered: 15 Ease of procedure: 1 Attempts: | | | easy Comments: SpO2, NBP monitored during procedure and recorded | | | in anesthesia record. Ultrasound used to identify the popliteal | | | sciatic nerve, traced proximal to branching point. Under | | | continuous ultrasound guidance the Stimuplex needle was advanced to | | | the popliteal sciatic nerve proximity about 3 inches proximal to the | | | knee crease with needle tip visualized throughout. 10ml 0.5% | | | Ropivacaine with 5ml 2% lidocaine was injected in 5 ml increments | | | around the sciatic nerve with intermittent negative aspiration and | | | no paresthesias. Ultrasound image placed in chart. Please see | | | anesthesia record or flowsheet for vital sign documentation and see | | | anesthesia record or MAR for all medication documentation. | | | Performing provider: SRINIVASAN ALBRIGHT Electronically | | | Signed by: MD Kelsey Joseph | | | date/time: 02/09/2016 8:06 Anesthesia Airway Placement | | | 02/09/2016 7:53 Preprocedure check: patient identified, oxygen, airway | | | assessed, patient reassessment prior to induction, airway equipment | | | checked and suction Rapid Sequence Induction: no Mask ventilation: | | | easy Attempts: 1 Airway type: laryngeal mask Size: 3 Route, | | | reference point: center of mouth Tube secured with: adhesive tape | | | Trauma: none Tube placement verification: carbon dioxide detection | | | Performing provider: SRINIVASAN ALBRIGHT Electronically Signed | | | by: MD Kelsey Joseph | | | date/time: 02/09/2016 8:14 | | + + + Anesthesia Perineural Note (02/09/2016 8:14 AM PDT) + + + | Narrative | Performed At | + + + | Srinivasan Albright MD 02/09/2016 8:14 Perineural Procedure | | | Note 02/09/2016 7:27 Nerve block: femoral Laterality: left | | | Provider requested procedure: Dr Ramin Bess MD Indication: | | | postoperative analgesia Preprocedure check: patient identified, | | | procedure and rescue equipment checked, preevaluation including | | | airway assessment complete, risks/benefits discussed, consent | | | obtained, timeout performed, reassessment prior to procedure and | | | monitors applied Patient position: supine Preparation: | | | chlorhexidine/isopropyl alcohol, 1% lidocaine infiltration | | | Technique: ultrasound Radiology image stored in patient's chart: | | | ultrasound Needle: echogenic, stimulating, insulated and short-bevel | | | Needle size: 21 g Needle length: 4 in Medication administered | | | through: needle Negative findings: no blood aspirated and no | | | paresthesia Total volume of local anesthetic solution administered: | | | 15 Ease of procedure: 1 Attempts: easy Comments: SpO2, NBP | | | monitored during procedure and recorded in anesthesia record. | | | Ultrasound used to identify femoral artery and femoral nerve. | | | Under continuous ultrasound guidance the Stimuplex needle was | | | advanced to the femoral nerve proximity with needle tip visualized | | | throughout. 10ml 0.5% Ropivacaine with 5ml 2% lidocaine was | | | injected in 5 ml increments around the femoral nerve with | | | intermittent negative aspiration and no paresthesias. Ultrasound | | | image placed in chart. Please see anesthesia record or | | | flowsheet for vital sign documentation and see anesthesia record or | | | MAR for all medication documentation. Performing provider: | | | SRINIVASAN ALBRIGHT Electronically Signed by: Srinivasan Coyle | | | MD Jeannette ESig date/time: 02/09/2016 | | | 8:05 Perineural Procedure Note 02/09/2016 7:35 Nerve block: | | | popliteal sciatic Laterality: left Provider requested procedure: | | | Ramin Bess Indication: postoperative analgesia | | | Preprocedure check: patient identified, procedure and rescue | | | equipment checked, preevaluation including airway assessment | | | complete, risks/benefits discussed, consent obtained, timeout | | | performed, reassessment prior to procedure and monitors applied | | | Patient position: right lateral Preparation: chlorhexidine/isopropyl | | | alcohol, 1% lidocaine infiltration Technique: ultrasound Radiology | | | image stored in patient's chart: ultrasound Needle: echogenic, | | | stimulating, insulated and short-bevel Needle size: 22 g Needle | | | length: 4 in Medication administered through: needle Negative | | | findings: no blood aspirated and no paresthesia Total volume of local | | | anesthetic solution administered: 15 Ease of procedure: 1 Attempts: | | | easy Comments: SpO2, NBP monitored during procedure and recorded | | | in anesthesia record. Ultrasound used to identify the popliteal | | | sciatic nerve, traced proximal to branching point. Under | | | continuous ultrasound guidance the Stimuplex needle was advanced to | | | the popliteal sciatic nerve proximity about 3 inches proximal to the | | | knee crease with needle tip visualized throughout. 10ml 0.5% | | | Ropivacaine with 5ml 2% lidocaine was injected in 5 ml increments | | | around the sciatic nerve with intermittent negative aspiration and | | | no paresthesias. Ultrasound image placed in chart. Please see | | | anesthesia record or flowsheet for vital sign documentation and see | | | anesthesia record or MAR for all medication documentation. | | | Performing provider: SRINIVASAN ALBRIGHT Electronically | | | Signed by: Srinivasan Albright MD ESig | | | date/time: 02/09/2016 8:06 Anesthesia Airway Placement | | | 02/09/2016 7:53 Preprocedure check: patient identified, oxygen, airway | | | assessed, patient reassessment prior to induction, airway equipment | | | checked and suction Rapid Sequence Induction: no Mask ventilation: | | | easy Attempts: 1 Airway type: laryngeal mask Size: 3 Route, | | | reference point: center of mouth Tube secured with: adhesive tape | | | Trauma: none Tube placement verification: carbon dioxide detection | | | Performing provider: SRINIVASAN ALBRIGHT Electronically Signed | | | by: Srinivasan Albright MD ESig | | | date/time: 02/09/2016 8:14 | | + + + Anesthesia Perineural Note (02/09/2016 8:14 AM PDT) + + + | Narrative | Performed At | + + + | Srinivasan Albright MD 02/09/2016 8:14 Perineural Procedure | | | Note 02/09/2016 7:27 Nerve block: femoral Laterality: left | | | Provider requested procedure: Dr Ramin Bess MD Indication: | | | postoperative analgesia Preprocedure check: patient identified, | | | procedure and rescue equipment checked, preevaluation including | | | airway assessment complete, risks/benefits discussed, consent | | | obtained, timeout performed, reassessment prior to procedure and | | | monitors applied Patient position: supine Preparation: | | | chlorhexidine/isopropyl alcohol, 1% lidocaine infiltration | | | Technique: ultrasound Radiology image stored in patient's chart: | | | ultrasound Needle: echogenic, stimulating, insulated and short-bevel | | | Needle size: 21 g Needle length: 4 in Medication administered | | | through: needle Negative findings: no blood aspirated and no | | | paresthesia Total volume of local anesthetic solution administered: | | | 15 Ease of procedure: 1 Attempts: easy Comments: SpO2, NBP | | | monitored during procedure and recorded in anesthesia record. | | | Ultrasound used to identify femoral artery and femoral nerve. | | | Under continuous ultrasound guidance the Stimuplex needle was | | | advanced to the femoral nerve proximity with needle tip visualized | | | throughout. 10ml 0.5% Ropivacaine with 5ml 2% lidocaine was | | | injected in 5 ml increments around the femoral nerve with | | | intermittent negative aspiration and no paresthesias. Ultrasound | | | image placed in chart. Please see anesthesia record or | | | flowsheet for vital sign documentation and see anesthesia record or | | | MAR for all medication documentation. Performing provider: | | | SRINIVASAN ALBRIGHT Electronically Signed by: Srinivasan Coyle | | | MD Jeannetet ESig date/time: 02/09/2016 | | | 8:05 Perineural Procedure Note 02/09/2016 7:35 Nerve block: | | | popliteal sciatic Laterality: left Provider requested procedure: | | | Ramin Bess Indication: postoperative analgesia | | | Preprocedure check: patient identified, procedure and rescue | | | equipment checked, preevaluation including airway assessment | | | complete, risks/benefits discussed, consent obtained, timeout | | | performed, reassessment prior to procedure and monitors applied | | | Patient position: right lateral Preparation: chlorhexidine/isopropyl | | | alcohol, 1% lidocaine infiltration Technique: ultrasound Radiology | | | image stored in patient's chart: ultrasound Needle: echogenic, | | | stimulating, insulated and short-bevel Needle size: 22 g Needle | | | length: 4 in Medication administered through: needle Negative | | | findings: no blood aspirated and no paresthesia Total volume of local | | | anesthetic solution administered: 15 Ease of procedure: 1 Attempts: | | | easy Comments: SpO2, NBP monitored during procedure and recorded | | | in anesthesia record. Ultrasound used to identify the popliteal | | | sciatic nerve, traced proximal to branching point. Under | | | continuous ultrasound guidance the Stimuplex needle was advanced to | | | the popliteal sciatic nerve proximity about 3 inches proximal to the | | | knee crease with needle tip visualized throughout. 10ml 0.5% | | | Ropivacaine with 5ml 2% lidocaine was injected in 5 ml increments | | | around the sciatic nerve with intermittent negative aspiration and | | | no paresthesias. Ultrasound image placed in chart. Please see | | | anesthesia record or flowsheet for vital sign documentation and see | | | anesthesia record or MAR for all medication documentation. | | | Performing provider: SRINIVASAN ALBRIGHT Electronically | | | Signed by: MD Kelsey Joseph | | | date/time: 02/09/2016 8:06 Anesthesia Airway Placement | | | 02/09/2016 7:53 Preprocedure check: patient identified, oxygen, airway | | | assessed, patient reassessment prior to induction, airway equipment | | | checked and suction Rapid Sequence Induction: no Mask ventilation: | | | easy Attempts: 1 Airway type: laryngeal mask Size: 3 Route, | | | reference point: center of mouth Tube secured with: adhesive tape | | | Trauma: none Tube placement verification: carbon dioxide detection | | | Performing provider: SRINIVASAN ALBRIGHT Electronically Signed | | | by: MD Kelsey Joseph | | | date/time: 02/09/2016 8:14 | | + + + documented in this encounter Visit Diagnoses Not on filedocumented in this encounter Administered Medications + +---------+ +------+------+------+ | Medication Order | MAR | Action | Dose | Rate | Site | | | Action | Date | | | | + +---------+ +------+------+------+ | ceFAZolin (ANCEF, KEFZOL) 2 g | New Bag | 02/09/20 | 2 g | | | | in sodium chloride 0.9% 50 mL | | 16 7:22 | | | | | IVPB 2 g, Intravenous, | | AM PDT | | | | | Administer over 30 Minutes, Prior | | | | | | | to Incision, Starting 02/09/16 | | | | | | | at 0637, For 1 dose, Give within | | | | | | | one hour prior to incision., | | | | | | | Pre-op, Indications: Surgical | | | | | | | Prophylaxis | | | | | | + +---------+ +------+------+------+ +---+---+ | | | +---+---+ + +-------+ +-------+---+---+ | dexamethasone (DECADRON) 10 | Given | 02/09/20 | 10 mg | | | | mg/mL injection Intravenous, | | 16 8:02 | | | | | PRN, Starting Sun02/09/16 at 0802, | | AM PDT | | | | | Anesthesia Intra-op | | | | | | + +-------+ +-------+---+---+ +---+---+ | | | +---+---+ + +-------+ +--------+---+---+ | fentaNYL (PF) injection PRN, | Given | 02/09/20 | 50 mcg | | | | Pain, Starting Sun02/09/16 at | | 16 7:22 | | | | | 0722, Anesthesia Intra-op | | AM PDT | | | | + +-------+ +--------+---+---+ +---+---+ | | | +---+---+ + +---------+ +---+---+---+ | lactated ringers (LR) infusion | New Bag | 02/09/20 | | | | | at 10-100 mL/hr, Intravenous, | | 16 9:26 | | | | | CONTINUOUS, Starting Sun02/09/16 | | AM PDT | | | | | at 0700, TKO. Use this instead of | | | | | | | NS unless dialysis patient., | | | | | | | Pre-op | | | | | | + +---------+ +---+---+---+ +---------+ +---+ +---+ | New Bag | 02/09/20 | | 50 mL/hr | | | | 16 7:08 | | | | | | AM PDT | | | | +---------+ +---+ +---+ +---+---+ | | | +---+---+ + +-------+ +-------+---+---+ | lidocaine (PF) 2% injection | Given | 02/09/20 | 5 mLs | | | | PRN, Starting Sun02/09/16 at 0736, | | 16 7:36 | | | | | Anesthesia Intra-op | | AM PDT | | | | + +-------+ +-------+---+---+ +-------+ +-------+---+---+ | Given | 02/09/20 | 5 mLs | | | | | 16 7:25 | | | | | | AM PDT | | | | +-------+ +-------+---+---+ +---+---+ | | | +---+---+ + +-------+ +-------+---+---+ | lidocaine (PF) 2% injection | Given | 02/09/20 | 50 mg | | | | Intravenous, PRN, Starting Wed | | 16 7:52 | | | | | 02/09/16 at 0752, Anesthesia | | AM PDT | | | | | Intra-op | | | | | | + +-------+ +-------+---+---+ +---+---+ | | | +---+---+ + +-------+ +------+---+---+ | midazolam (VERSED) 1 mg/mL | Given | 02/09/20 | 1 mg | | | | injection Intravenous, PRN, | | 16 7:25 | | | | | Anxiety, Starting Sun02/09/16 at | | AM PDT | | | | | 0722, Anesthesia Intra-op | | | | | | + +-------+ +------+---+---+ +-------+ +------+---+---+ | Given | 02/09/20 | 1 mg | | | | | 16 7:22 | | | | | | AM PDT | | | | +-------+ +------+---+---+ +---+---+ | | | +---+---+ + +-------+ +------+---+---+ | ondansetron (ZOFRAN) injection | Given | 02/09/20 | 4 mg | | | | 4 mg 4 mg, Intravenous, ONCE | | 16 8:02 | | | | | PRN, Nausea, Starting Sun02/09/16 | | AM PDT | | | | | at 0637, For 1 dose, Pre-op | | | | | | + +-------+ +------+---+---+ +---+---+ | | | +---+---+ + +-------+ +---------+---+---+ | phenylephrine (GENESIS-SYNEPHRINE) | Given | 02/09/20 | 200 mcg | | | | 100 mcg/mL injection | | 16 9:18 | | | | | Intravenous, PRN, Starting Wed | | AM PDT | | | | | 02/09/16 at 0807, Anesthesia | | | | | | | Intra-op | | | | | | + +-------+ +---------+---+---+ +-------+ +---------+---+---+ | Given | 02/09/20 | 200 mcg | | | | | 16 8:07 | | | | | | AM PDT | | | | +-------+ +---------+---+---+ | Given | 02/09/20 | 100 mcg | | | | | 16 7:56 | | | | | | AM PDT | | | | +-------+ +---------+---+---+ +---+---+ | | | +---+---+ + +-------+ +--------+---+---+ | propofol (DIPRIVAN) injection | Given | 02/09/20 | 100 mg | | | | PRN, Starting Sun02/09/16 at 0752, | | 16 7:52 | | | | | Anesthesia Intra-op | | AM PDT | | | | + +-------+ +--------+---+---+ +---+---+ | | | +---+---+ + +-------+ +--------+---+---+ | ropivacaine (NAROPIN) 5 mg/mL | Given | 02/09/20 | 10 mLs | | | | (0.5%) injection PERINEURAL, | | 16 7:36 | | | | | PRN, Starting Sun02/09/16 at 0736, | | AM PDT | | | | | Anesthesia Intra-op | | | | | | + +-------+ +--------+---+---+ +-------+ +--------+---+---+ | Given | 02/09/20 | 10 mLs | | | | | 16 7:25 | | | | | | AM PDT | | | | +-------+ +--------+---+---+ +---+---+ | | | +---+---+ + +-------+ +-----+---+---+ | tranexamic acid in 50 mL NS | Given | 02/09/20 | 1 g | | | | (CYKLOKAPRON) IVPB (simple) 1 g | | 16 9:25 | | | | | 1 g, Intravenous, Administer over | | AM PDT | | | | | 30 Minutes, ONCE, 02/09/16 at | | | | | | | 0700, For 1 dose, Maximum | | | | | | | infusion rate = 100 mg/min., | | | | | | + +-------+ +-----+---+---+ +-------+ +-----+---+---+ | Given | 02/09/20 | 1 g | | | | | 16 8:05 | | | | | | AM PDT | | | | +-------+ +-----+---+---+ +---+---+ | | | +---+---+ documented in this encounter"
--- OUTSIDE RECORDS SUMMARY | ~2019-07-02 | XMS | Encounter Summary ---
Demographics + + + | Address | [address] | | | [place] [address] | + + + | Home Phone | | + + + | Preferred Language | Unknown | + + + | Marital Status | | + + + | Faith Affiliation | 1076 | + + + | Race | Unknown | + + + | Ethnic Group | Unknown | + + + Author + + + | Author | [facility] | | | and Primo | + + + | Organization | [facility] | | | and [place] [...] [place], [place] | | | | | [address] | | + + + + + | Dalton Fernandez | ECON | Unknown | | + + + + + | Juana Fernandez | ECON | Unknown | | + + + + + Care Team Providers + +------+ + | Care Director Shopper Marketing Name | Role | Phone | + [...] | | | | | | | [address] | | | | | | | Phone: | | | | | | | [phone] | | | | | | | Fax: | | | | | | | [phone] | | +--------+ + + + + [...] | | | | | | | [place] TOTAL | | | | | | [...] + + | 05/26/ | Hospital | [facility] | Ramin Bess | Primary | | 2015 - | Encounter | MED CTR SURGICAL | MD Lisa [address] [facility] | osteoarthritis of | | | | [address] [place] | [place], [place] | right knee (Primary | | 05/29/ | | [place] [address] | [phone] | Dx); Status post | | 2014 | | [phone] | | total right knee | | [...] controlled. Hospital Course: Pt was admitted to [facility] for a Right knee total Arthropl asty. [...] PA-C 05/28/2015. This not was dictated using [employer] Voice recognition system. There may be minor [...] maco or screws may be removed. The [employer]. [address] [place] [address]. All righ ts reserved. This information is [...] also affect oth er joints nearby. The [employer]. [address] [place] [address]. All righ ts reserved. This information is [...] Cycling and swimming are good choice s. 0820-1526 [employer]. [address] [place] [address], [place] [address]. All righ ts reserved. This information is [...] your healthcare provider Worsening joint pain [employer]. [address] [place] [address]. All righ ts reserved. This information is [...] be very helpful for rheumatoid arthritis. The [employer]. [address] [place] [address]. All righ ts reserved. This information is not intended as a substitute for professional medical care. Always follow your healthcare professional's instructions. AttachmentsThe following attachments cannot be sent through Care Everywhere.KNEE REPLACEMEN T, AFTER: HOSPITAL RECOVERY (MALAYSIAN)KNEE REPLACEMENT, AFTER: KEEPING YOUR KNEE HEALTHY (TALIA PEDRAZA)KNEE REPLACEMENT, AFTER: RIGHT AFTER SURGERY (MALAYSIAN)documented in this encounter Medications at Time of [...] has been changed since signin [facility] b complex vitamins tablet (Taking) Take 1 tablet by mouth Daily. Liquid B Complex Number of times this order has been changed since signin [facility] Calcium Carbonate (CALCIUM 600 PO) (Taking) Take by mouth in the morning and in the even ing. Number of times this order has been changed since signin [facility] Carboxymethylcellulose Sodium (REFRESH PLUS OP) (Taking) Apply to eye as needed. Number of times this order has been changed since signin [facility] cholecalciferol (VITAMIN D-3) 2000 UNITS TABS (Taking) Take 1,000 Units by mouth Daily. Number of times this order has been changed since signin [facility] CRANBERRY FRUIT PO (Taking) Take 200 mg by mouth in the morning and in the evening. Number of times this order has been changed since signin [facility] cyclobenzaprine (FLEXERIL) 10 mg tablet (Taking) Take 1 tablet by mouth every 8 hours as needed for Muscle spasms. Number of times this order has been changed since signin [facility] CycloSPORINE (RESTASIS OP) (Taking) Apply 1 drop to eye nightly. Number of times this order has been changed since signin [facility] IRON PO (Taking) Take by mouth in the morning and in the evening. Number of times this order has been changed since signin [facility] Loratadine (CLARITIN PO) (Taking) Take by mouth in the morning and in the evening. Number of times this order has been changed since signin [facility] minocycline (DYNACIN) 50 MG tablet (Taking) Take 50 mg by mouth every morning. Number of times this order has been changed since signin [facility] omeprazole (PRILOSEC) 20 mg capsule (Taking) Take 20 mg by mouth nightly. Number of times this order has been changed since signin [facility] Pediatric Multiple Vitamins (FLINTSTONES MULTIVITAMIN PO) (Taking) Take by mouth every m orning. Number of times this order has been changed since signin [facility] pilocarpine (SALAGEN) 5 mg tablet (Taking) Take 5 mg by mouth 4 times daily. Number of times this order has been changed since signin [facility] Probiotic Product (PROBIOTIC FORMULA) CAPS (Taking) Take 1 capsule by mouth daily (with b reakfast). Number of times this order has been changed since signin [facility] ASSESSMENT/PLAN: 1. Right total knee replacement A. Pt comfortable and stable. Anxious to be d/c today. Follow up in our office as susu sandoval B. Patient is advised that if they have any questions, comments or concerns to contact our office. Electronically signed by: Zachery Soria PA-C 05/29/2015 7:18 This note was dictated using the [employer] voice recognition system. Minor errors in [...] has been changed since signin [facility] [place] b complex vitamins tablet (Taking) Take 1 tablet by mouth Daily. Liquid B Complex Number of times this order has been changed since signin [facility] Calcium Carbonate (CALCIUM 600 PO) (Taking) Take by mouth in the morning and in the even ing. Number of times this order has been changed since signin [facility] [place] Carboxymethylcellulose Sodium (REFRESH PLUS OP) (Taking) Apply to eye as needed. Number of times this order has been changed since signin [facility] cholecalciferol (VITAMIN D-3) 2000 UNITS TABS (Taking) Take 1,000 Units by mouth Daily. Number of times this order has been changed since signin [facility] CRANBERRY FRUIT PO (Taking) Take 200 mg by mouth in the morning and in the evening. Number of times this order has been changed since signin [facility] cyclobenzaprine (FLEXERIL) 10 mg tablet (Taking) Take 1 tablet by mouth every 8 hours as needed for Muscle spasms. Number of times this order has been changed since signin [facility] CycloSPORINE (RESTASIS OP) (Taking) Apply 1 drop to eye nightly. Number of times this order has been changed since signin [facility] IRON PO (Taking) Take by mouth in the morning and in the evening. Number of times this order has been changed since signin [facility] Loratadine (CLARITIN PO) (Taking) Take by mouth in the morning and in the evening. Number of times this order has been changed since signin [facility] minocycline (DYNACIN) 50 MG tablet (Taking) Take 50 mg by mouth every morning. Number of times this order has been changed since signin [facility] omeprazole (PRILOSEC) 20 mg capsule (Taking) Take 20 mg by mouth nightly. Number of times this order has been changed since signin [facility] Pediatric Multiple Vitamins (FLINTSTONES MULTIVITAMIN PO) (Taking) Take by mouth every m orning. Number of times this order has been changed since signin [facility] pilocarpine (SALAGEN) 5 mg tablet (Taking) Take 5 mg by mouth 4 times daily. Number of times this order has been changed since signin [facility] Probiotic Product (PROBIOTIC FORMULA) CAPS (Taking) Take 1 capsule by mouth daily (with b reakfast). Number of times this order has been changed since signin [facility] ASSESSMENT/PLAN: 1. Right total knee replacement A. [...] 12:20 This note was dictated using the [employer] voice recognition system. Minor errors in [...] has been changed since signin [facility] [place] b complex vitamins tablet (Taking) Take 1 tablet by mouth Daily. Liquid B Complex Number of times this order has been changed since signin [facility] Calcium Carbonate (CALCIUM 600 PO) (Taking) Take by mouth in the morning and in the even ing. Number of times this order has been changed since signin [facility] Carboxymethylcellulose Sodium (REFRESH PLUS OP) (Taking) Apply to eye as needed. Number of times this order has been changed since signin [facility] cholecalciferol (VITAMIN D-3) 2000 UNITS TABS (Taking) Take 1,000 Units by mouth Daily. Number of times this order has been changed since signin [facility] CRANBERRY FRUIT PO (Taking) Take 200 mg by mouth in the morning and in the evening. Number of times this order has been changed since signin [facility] cyclobenzaprine (FLEXERIL) 10 mg tablet (Taking) Take 1 tablet by mouth every 8 hours as needed for Muscle spasms. Number of times this order has been changed since signin [facility] CycloSPORINE (RESTASIS OP) (Taking) Apply 1 drop to eye nightly. Number of times this order has been changed since signin [facility] IRON PO (Taking) Take by mouth in the morning and in the evening. Number of times this order has been changed since signin [facility] Loratadine (CLARITIN PO) (Taking) Take by mouth in the morning and in the evening. Number of times this order has been changed since signin [facility] minocycline (DYNACIN) 50 MG tablet (Taking) Take 50 mg by mouth every morning. Number of times this order has been changed since signin [facility] omeprazole (PRILOSEC) 20 mg capsule (Taking) Take 20 mg by mouth nightly. Number of times this order has been changed since signin [facility] Pediatric Multiple Vitamins (FLINTSTONES MULTIVITAMIN PO) (Taking) Take by mouth every m orning. Number of times this order has been changed since signin [facility] pilocarpine (SALAGEN) 5 mg tablet (Taking) Take 5 mg by mouth 4 times daily. Number of times this order has been changed since signin [facility] Probiotic Product (PROBIOTIC FORMULA) CAPS (Taking) Take 1 capsule by mouth daily (with b reakfast). Number of times this order has been changed since signin [facility] ASSESSMENT/PLAN: 1. Total right knee arthroplasty A. [...] 8:21 This note was dictated using the [employer] voice recognition system. Minor errors in grammar may have occurred documented in th is encounter Plan of Treatment +--------+---------+ + + + | Date | Type | Specialty | Care Team | Description | +--------+---------+ + + + | 07/22/ | Office | Orthopedic Surgery | Ramin Bess | | | 2019 | Visit | | MD Swathi Gonzalez [facility] | | | | | | [place] | | | | | | [address] | | | | | | | [...] [address] | [place] | [phone] | | [facility] | | [address] | | | - LABORATORY | | [...] 109 | 70 - 109 mg/dL | [facility] | | | | | [facility] | [facility] | | | [facility] - | | | | | | LABORATORY | | + + + + + + | BUN | 16 | 7 - 18 mg/dL | [facility] | | | | | | [facility] | | | | | [facility] - | | | | | | LABORATORY | | + + + + + + | Creatinine | 0.71 | 0.60 - 1.30 | [facility] | | | | | mg/dL | [facility] | | | | | | [facility] | | | | | | [facility] - | | | | | | LABORATORY | | + + + + + + | eGFR if not | >60Comment: GLOMERULAR | >=60 | [facility] | | | | FILTRATION | mL/min/1.73m2 | [facility] | | | [place] | RATE,ESTIMATED | | MEDICAL | | | | mL/min/1.37h7Wiqs than | | CENTER - | | [...] + | [address] | [address] | [place] | [phone] | | [facility] | | [address] | | | - LABORATORY | | [...] | | | | | | | [place] 10/325 if ordered., | | | | [...] | | | | | dose on [facility] 05/27/15 at 0700, For | | [...]
--- OUTSIDE RECORDS SUMMARY | ~2019-07-02 | XMS | Encounter Summary ---
Demographics + + + | Address | [address] | | | [place] [address] | + + + | Home Phone [...] | Author | [facility] | | | and Primo | + + + | Organization | [facility] | | [...] [place], [place] | | | | | [address] | | + + + + + | Dalton Fernandez | ECON | Unknown | | + + + + + | Juana Fernandez | ECON | Unknown | | + + + + + Care Team Providers + +------+ + | Care President Celebrity Acquistion Name | Role | Phone | + [...] + + | 09/06/ | Telephone | [facility] | Ramin Bess | Other | | 2019 | | ORTHOPEDIC SURGERY | MD Lisa [address] [facility] | | | | | [address] [facility] | [place], [place] | | | | | [place], [place] | [address] | | | | | [address] | | | | | | [phone] | | | +--------+ + + + [...]
--- OUTSIDE RECORDS SUMMARY | ~2019-07-02 | XMS | Encounter Summary ---
Demographics + + + | Address | [address] | | | [place] [address] | + + + | Home Phone | | + + + | Preferred Language | Unknown | + + + | Marital Status | | + + + | Gnosticist Affiliation | 1076 | + + + | Race | Unknown | + + + | Ethnic Group | Unknown | + + + Author + + + | Author | [facility] | | | and Primo | + + + | Organization | [facility] | [...] [place], [place] | | | | | [address] | | + + + + + | Dalton Fernandez | ECON | Unknown | | + + + + + | Juana Fernandez | ECON | Unknown | | + + + + + Care Team Providers + +------+ + | Care Key Punch Teacher Name | Role | Phone | + +------+ + | Dutch Rodriguez DO | PCP | | + +------+ + Encounter Details +--------+ + + + + | Date | Type | Department | Care Team | Description | +--------+ + + + + | 03/16/ | [facility] | [facility] | Zachery Soria | | | 2016 | Encounter | MED CTR XRAY [address] | [address] | | | | | [place] | [facility] | | | | | [place] [address] | [place] [address] | | | | | [phone] | [phone] | | | | | | | [...] + +---------+ + + | cefadroxil | One tablet in | 4 | 0 | 06/08/20 | | | (DURICEF) 500 mg | morning and one in | capsule | | 15 | 7 | | capsule | evening the day | | | | | | | before dental | | | | | | | procedure. | | | | | + + + +---------+ + + | clindamycin | Take 2 capsule 1 | 4 | 0 | 08/09/19 | | | (CLEOCIN) 300 MG | hour prior to dental | capsule | | 16 | 7 | | capsule | procedure. [...] | | Take 1-2 tablets by | 100 | 0 | 02/12/20 | | | HYDROcodone-acetamin | mouth every 4 hours | tablet | | 16 | 6 | | ophen (NORCO) 10-325 | as needed for Pain. | | [...] + + + +---------+ + + | Misc. Devices MISC | Set up at 0-60 | 1 each | 0 | 02/12/20 | | | | degrees and increase | | | 16 | 6 | | | as tolerated. | | | | | | | Duration 3 weeks and | | | | | | | diagnosis is | | | | | | | TKA.Increase as | | | | | | | tolerated to 0-1004 | | | | | | | hours per day | | | | | | | minimum | | | | | + + + +---------+ + + | rivaroxaban | Take 1 tablet by | 25 | 0 | 02/03/20 | | | (XARELTO) 10 mg | mouth Daily (with | tablet | | 16 | 6 | | tablet | dinner). START | | | | | | | TAKING AFTER | | | | | | | DISCHARGED FROM | | | | | | | HOSPITAL | | | | | + + + +---------+ + + documented as of this encounter Plan of Treatment +--------+---------+ + + + | Date | Type | Specialty | Care Team | Description | +--------+---------+ + + + | 07/22/ | Office | Orthopedic Surgery | Bess, Ramin | | | 2019 | Visit | | MD Swathi Gonzalez [facility] | | | | | | [place] | | | | | | [address] | | | | | | | [...] + | Vinod Rosen Results In - 03/16/2016 3:52 PM PDT [...] [address] | [place] | [phone] | | [facility] | | [address] | | | - IMAGING | | | | + + + + + documented in this encounter Visit Diagnoses Not on filedocumented in this encounter"
--- OUTSIDE RECORDS SUMMARY | ~2019-07-02 | XMS | Clinical Summary ---
Demographics + + + | Address | [address] | | | [place] [address] | + + + | Home Phone | | + + + | Preferred Language | Unknown | + + + | Marital Status | | + + + | Christian Affiliation | Unknown | + + + [...] Team Providers + +------+ + | Care Network Diagnostic Support Specialist Name | Role | Phone | + +------+ + | Dutch Rodriguez DO | PCP | | + +------+ + Source Comments FREDRICK is fully live on both [facility] and [facility] InPatient.[facility] Allergies + + + + + [...]
--- OUTSIDE RECORDS SUMMARY | ~2019-07-02 | XMS | Encounter Summary ---
Demographics + + + | Address | [address] | | | [place] [address] | + + + | Home Phone | | + + + | Preferred Language | Unknown | + + + | Marital Status | | + + + | Judaism Affiliation | 1076 | + + + | Race | Unknown | + + + | Ethnic Group | Unknown | + + + Author + + + | Author | [facility] | | | and Primo | + + + | Organization | [facility] | | | and [place] [...] [place], [place] | | | | | [address] | | + + + + + | Dalton Fernandez | ECON | Unknown | | + + + + + | Juana Fernandez | ECON | Unknown | | + + + + + Care Team Providers + +------+ + | Care Construction Flagger Name | Role | Phone | + [...] Description | +--------+--------+ + + + | 10/16/ | Refill | [facility] | Zachery Soria | Medication Refill | | 2018 | | ORTHOPEDIC SURGERY | [address] | | | | | [address] [facility] | [facility] | | | | | [place] | [place] [address] | | | | | [address] | [phone] | | | | | [phone] | | | +--------+--------+ + + + [...] [place] | | | | | | [id number] | | | | | | | | +--------+---------+ + + + documented as of this encounter Visit Diagnoses Not on filedocumented in this encounter"
--- OUTSIDE RECORDS SUMMARY | ~2019-07-02 | XMS | Encounter Summary ---
Demographics + + + | Address | [address] | | | [place] [address] | + + + | Home Phone [...] Author | [facility] | | | and Primo | + + + | Organization | [facility] [...] [place], [place] | | | | | [address] | | + + + + + | Dalton Fernandez | ECON | Unknown | | + + + + + | Juana Fernandez | ECON | Unknown | | + + + + + Care Team Providers + +------+ + | Care Residential Carpenter Name | Role | Phone | [...] + + | 06/10/ | Office | [facility] [place] | Nino Hurst | 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 Nino GOMES-Heather [address] [facility], [address] [place], [place] [id number] FAX: NEUROSURGERY FOLLOW-UP CHIEF COMPLAINT: Chief Complaint [...] has no apparent deficits with short or penitentiary memory. MOTOR EXAM: (5 IS NORMAL) * Indicates pain limited MUSCLE/ MOVEMENT: RIGHT LEFT Deltoids 5 5 Biceps 5 5 Triceps 5 5 Wrist Flexion 5 5 Wrist Extension 5 5 Median Intrinsics 5 5 Ulnar Intrinsics 5 5 Spool Cleaner Hand Strength 5 5 Hip Flexion 5 5 [...] Visit | | MD Lisa [facility]ABIAN | | | | | | [place] | | | | | | [address] | | | | | | | [...]
--- OUTSIDE RECORDS SUMMARY | ~2019-07-02 | XMS | Encounter Summary ---
Demographics + + + | Address | [address] | | | [place] [address] | + + + | Home Phone [...] | Author | [facility] | | | and Primo | + + + | Organization | [facility] | [...] [place], [place] | | | | | [address] | | + + + + + | Dalton Fernandez | ECON | Unknown | | + + + + + | Juana Fernandez | ECON | Unknown | | + + + + + Care Team Providers + +------+ + | Care Mine Wedge Sawyer Name | Role | Phone | [...] | | | | | | | [address] | | | | | | | Phone: | | | | | | | [phone] | | | | | | | Fax: | | | | | | | [phone] | | +--------+ + + + + [...] | | | | | | [place] TOTAL | | | | | | [...] + + | 05/26/ | Hospital | [facility] | Ramin Bess | Primary | | 2015 - | Encounter | MED CTR SURGICAL | MD Lisa [address] [facility] | osteoarthritis of | | | | [address] [place] | [place], [place] | right knee (Primary | | 05/29/ | | [place] [address] | [address] | Dx); Status post | | 2014 | | [phone] | | total right knee | | [...] controlled. Hospital Course: Pt was admitted to [facility] for a Right knee total Arthropl asty. [...] PA-C 05/28/2015. This not was dictated using OpenS[employer]ame Voice recognition system. There may be minor [...] maco or screws may be removed. [employer]. [address] [place] [address]. All righ ts reserved. This information is [...] also affect oth er joints nearby. [employer]. [address] [place] [address]. All righ ts reserved. This information is [...] Cycling and swimming are good choice s. [id number] [employer]. [address] [place] [address], [place] [address]. All righ ts reserved. This information is [...] your healthcare provider Worsening joint pain [employer]. [address] [place] [address]. All righ ts reserved. This information is [...] be very helpful for rheumatoid arthritis. [employer]. [address] [place] [address]. All righ ts reserved. This information is not intended as a substitute for professional medical care. Always follow your healthcare professional's instructions. AttachmentsThe following attachments cannot be sent through Care Everywhere.KNEE REPLACEMEN T, AFTER: HOSPITAL RECOVERY (SAMMARINESE)KNEE REPLACEMENT, AFTER: KEEPING YOUR KNEE HEALTHY (TALIA PEDRAZA)KNEE REPLACEMENT, AFTER: RIGHT AFTER SURGERY (SAMMARINESE)documented in this encounter Medications at Time of [...] has been changed since signin Order [facility] b complex vitamins tablet (Taking) Take 1 tablet by mouth Daily. Liquid B Complex Number of times this order has been changed since signin Order [facility] Calcium Carbonate (CALCIUM 600 PO) (Taking) Take by mouth in the morning and in the even ing. Number of times this order has been changed since signin Order [facility] Carboxymethylcellulose Sodium (REFRESH PLUS OP) (Taking) Apply to eye as needed. Number of times this order has been changed since signin Order [facility] cholecalciferol (VITAMIN D-3) 2000 UNITS TABS (Taking) Take 1,000 Units by mouth Daily. Number of times this order has been changed since signin Order [facility] CRANBERRY FRUIT PO (Taking) Take 200 mg by mouth in the morning and in the evening. Number of times this order has been changed since signin Order [facility] cyclobenzaprine (FLEXERIL) 10 mg tablet (Taking) Take 1 tablet by mouth every 8 hours as needed for Muscle spasms. Number of times this order has been changed since signin Order [facility] CycloSPORINE (RESTASIS OP) (Taking) Apply 1 drop to eye nightly. Number of times this order has been changed since signin Order [facility] IRON PO (Taking) Take by mouth in the morning and in the evening. Number of times this order has been changed since signin Order [facility] Loratadine (CLARITIN PO) (Taking) Take by mouth in the morning and in the evening. Number of times this order has been changed since signin Order [facility] minocycline (DYNACIN) 50 MG tablet (Taking) Take 50 mg by mouth every morning. Number of times this order has been changed since signin Order [facility] omeprazole (PRILOSEC) 20 mg capsule (Taking) Take 20 mg by mouth nightly. Number of times this order has been changed since signin Order [facility] Pediatric Multiple Vitamins (FLINTSTONES MULTIVITAMIN PO) (Taking) Take by mouth every m orning. Number of times this order has been changed since signin Order [facility] pilocarpine (SALAGEN) 5 mg tablet (Taking) Take 5 mg by mouth 4 times daily. Number of times this order has been changed since signin Order [facility] Probiotic Product (PROBIOTIC FORMULA) CAPS (Taking) Take 1 capsule by mouth daily (with b reakfast). Number of times this order has been changed since signin Order [facility] ASSESSMENT/PLAN: 1. Right total knee replacement A. Pt comfortable and stable. Anxious to be d/c today. Follow up in our office as susu sandoval B. Patient is advised that if they have any questions, comments or concerns to contact our office. Electronically signed by: Zachery Soria PA-C 05/29/2015 7:18 This note was dictated using the OpenSesame voice recognition system. Minor errors in grammar [...] has been changed since signin Order [facility] b complex vitamins tablet (Taking) Take 1 tablet by mouth Daily. Liquid B Complex Number of times this order has been changed since signin Order [facility] Calcium Carbonate (CALCIUM 600 PO) (Taking) Take by mouth in the morning and in the even ing. Number of times this order has been changed since signin Order [facility] Carboxymethylcellulose Sodium (REFRESH PLUS OP) (Taking) Apply to eye as needed. Number of times this order has been changed since signin Order [facility] cholecalciferol (VITAMIN D-3) 2000 UNITS TABS (Taking) Take 1,000 Units by mouth Daily. Number of times this order has been changed since signin Order [facility] CRANBERRY FRUIT PO (Taking) Take 200 mg by mouth in the morning and in the evening. Number of times this order has been changed since signin Order [facility] cyclobenzaprine (FLEXERIL) 10 mg tablet (Taking) Take 1 tablet by mouth every 8 hours as needed for Muscle spasms. Number of times this order has been changed since signin Order [facility] CycloSPORINE (RESTASIS OP) (Taking) Apply 1 drop to eye nightly. Number of times this order has been changed since signin Order [facility] IRON PO (Taking) Take by mouth in the morning and in the evening. Number of times this order has been changed since signin Order [facility] Loratadine (CLARITIN PO) (Taking) Take by mouth in the morning and in the evening. Number of times this order has been changed since signin Order [facility] minocycline (DYNACIN) 50 MG tablet (Taking) Take 50 mg by mouth every morning. Number of times this order has been changed since signin Order [facility] omeprazole (PRILOSEC) 20 mg capsule (Taking) Take 20 mg by mouth nightly. Number of times this order has been changed since signin Order [facility] Pediatric Multiple Vitamins (FLINTSTONES MULTIVITAMIN PO) (Taking) Take by mouth every m orning. Number of times this order has been changed since signin Order [facility] pilocarpine (SALAGEN) 5 mg tablet (Taking) Take 5 mg by mouth 4 times daily. Number of times this order has been changed since signin Order [facility] Probiotic Product (PROBIOTIC FORMULA) CAPS (Taking) Take 1 capsule by mouth daily (with b reakfast). Number of times this order has been changed since signin Order [facility] ASSESSMENT/PLAN: 1. Right total knee replacement A. [...] 12:20 This note was dictated using the OpenSesame voice recognition system. Minor errors in grammar [...] has been changed since signin Order [facility] b complex vitamins tablet (Taking) Take 1 tablet by mouth Daily. Liquid B Complex Number of times this order has been changed since signin Order [facility] Calcium Carbonate (CALCIUM 600 PO) (Taking) Take by mouth in the morning and in the even ing. Number of times this order has been changed since signin Order [facility] Carboxymethylcellulose Sodium (REFRESH PLUS OP) (Taking) Apply to eye as needed. Number of times this order has been changed since signin Order [facility] cholecalciferol (VITAMIN D-3) 2000 UNITS TABS (Taking) Take 1,000 Units by mouth Daily. Number of times this order has been changed since signin Order [facility] CRANBERRY FRUIT PO (Taking) Take 200 mg by mouth in the morning and in the evening. Number of times this order has been changed since signin Order [facility] cyclobenzaprine (FLEXERIL) 10 mg tablet (Taking) Take 1 tablet by mouth every 8 hours as needed for Muscle spasms. Number of times this order has been changed since signin Order [facility] CycloSPORINE (RESTASIS OP) (Taking) Apply 1 drop to eye nightly. Number of times this order has been changed since signin Order [facility] IRON PO (Taking) Take by mouth in the morning and in the evening. Number of times this order has been changed since signin Order [facility] Loratadine (CLARITIN PO) (Taking) Take by mouth in the morning and in the evening. Number of times this order has been changed since signin Order [facility] minocycline (DYNACIN) 50 MG tablet (Taking) Take 50 mg by mouth every morning. Number of times this order has been changed since signin Order [facility] omeprazole (PRILOSEC) 20 mg capsule (Taking) Take 20 mg by mouth nightly. Number of times this order has been changed since signin Order [facility] Pediatric Multiple Vitamins (FLINTSTONES MULTIVITAMIN PO) (Taking) Take by mouth every m orning. Number of times this order has been changed since signin Order [facility] pilocarpine (SALAGEN) 5 mg tablet (Taking) Take 5 mg by mouth 4 times daily. Number of times this order has been changed since signin Order [facility] Probiotic Product (PROBIOTIC FORMULA) CAPS (Taking) Take 1 capsule by mouth daily (with b reakfast). Number of times this order has been changed since signin Order [facility] ASSESSMENT/PLAN: 1. Total right knee arthroplasty A. [...] 8:21 This note was dictated using the OpenSesame voice recognition system. Minor errors in grammar may have occurred documented in th is encounter Plan of Treatment +--------+---------+ + + + | Date | Type | Specialty | Care Team | Description | +--------+---------+ + + + | 07/22/ | Office | Orthopedic Surgery | Ramin Bess | | | 2019 | Visit | | MD Swathi Gonzalez [facility] | | | | | | [place] | | | | | | [address] | | | | | | | [...] [address] | [place] | [phone] | | [facility] | | [address] | | | - LABORATORY | | [...] 109 | 70 - 109 mg/dL | [facility] | | | | | [facility] | | [facility] | | | | [facility] - | | | | | | LABORATORY | | + + + + + + | BUN | 16 | 7 - 18 mg/dL | [facility] | | [facility] | [facility] | | | | | | [facility] | | | | | | [facility] - | | | | | | LABORATORY | | + + + + + + | Creatinine | 0.71 | 0.60 - 1.30 | [facility] | | | | | mg/dL | [facility] | | | | | | [facility] | | | | | | [facility] - | | | | | | LABORATORY | | + + + + + + | eGFR if not | >60Comment: GLOMERULAR | >=60 | [facility] | | | | FILTRATION | mL/min/1.73m2 | [facility] | | | [place] | RATE,ESTIMATED | | MEDICAL | | | | mL/min/1.61r1Sitk than | | CENTER - | | [...] | [address] | [place] | [phone] | | [facility] | | [address] | | | - LABORATORY | | [...] | | | | | | | [place] 10/325 if ordered., | | | | [...] | | | | | dose on [facility] 05/27/15 at 0700, For | | [...]
--- OUTSIDE RECORDS SUMMARY | ~2019-07-02 | XMS | Encounter Summary ---
Demographics + + + | Address | [address] | | | [place] [address] | + + + | Home Phone [...] Author | [facility] | | | and Primo | + + + | Organization | [facility] | | | and [...] [place], [place] | | | | | [address] | | + + + + + | Dalton Fernandez | ECON | Unknown | | + + + + + | Juana Fernandez | ECON | Unknown | | + + + + + Care Team Providers + +------+ + | Care Ophthalmic Lens Inspector Name | Role | Phone | + +------+ + | Dutch Rodriguez DO | PCP | | + +------+ + Encounter Details +--------+ + + + + | Date | Type | Department | Care Team | Description | +--------+ + + + + | 07/22/ | [facility] | [facility] | Nino Hurst | S/P lumbar fusion | | 2013 | Encounter | MED CTR XRAY [address] | [address] | | | | | [place] | [facility] | | | | | [place] [address] | [place], [place] | | | | | [phone] | [id number] | | | | | | | [...] [place] | | | | | | [address] | | | | | | | | +--------+---------+ + + + documented as of this encounter Procedures + +--------+ + + + | Procedure Name | Priori | Date/Time | Associated Diagnosis | Comments | | | ty | | | | + +--------+ + + + | XR LUMBAR SPINE 2 OR | Routin | 07/22/2014 | S/P lumbar fusion | Results for this | | 3 VW | e | 11:48 AM | | procedure are in the | | | | PST | | results section. | + +--------+ + + + documented in this encounter Results XR Lumbar Spine 2 or 3 Vw (07/22/2014 11:48 AM [facility]) + + | Specimen | + + [...] + | MISCELLANEOUS LAB | | | [phone] | + +---------+ + + | MISCELANIOUS LAB | | | [phone] | + +---------+ + + documented in this encounter Visit Diagnoses + + | Diagnosis | + + | S/P lumbar fusion Arthrodesis status | + + documented in this encounter"
--- OUTSIDE RECORDS SUMMARY | ~2019-07-02 | XMS | Encounter Summary ---
Demographics + + + | Address | [address] | | | [place] [address] | + + + | Home Phone | | + + + | Preferred Language | Unknown | + + + | Marital Status | | + + + | Presybeterian Affiliation | 1076 | + + + | Race | Unknown | + + + | Ethnic Group | Unknown | + + + Author + + + | Author | [facility] | | | and Primo | + + + | Organization | [facility] [...] [place], [place] | | | | | [address] | | + + + + + | Dalton Fernandez | ECON | Unknown | | + + + + + | Juana Fernandez | ECON | Unknown | | + + + + + Care Team Providers + +------+ + | Care Certified Surgical Assistant Name | Role | Phone | + [...] + + | 03/28/ | Telephone | [facility] | Ramin Bess | Allergy | | 2015 | | ORTHOPEDIC SURGERY | MD Lisa [address] [facility] | | | | | [address] [facility] | [place], [place] | | | | | [place], [place] | [address] | | | | | [address] | | | | | | [phone] | | | +--------+ + + + [...]
--- OUTSIDE RECORDS SUMMARY | ~2019-07-02 | XMS | Encounter Summary ---
Demographics + + + | Address | [address] | | | [place] [address] | + + + | Home Phone | | + + + | Preferred Language | Unknown | + + + | Marital Status | | + + + | Rastafari Affiliation | 1076 | + + + | Race | Unknown | + + + | Ethnic Group | Unknown | + + + Author + + + | Author | [facility] | | | and Primo | + + + | Organization | [facility] | | | and [...] [place], [place] | | | | | [address] | | + + + + + | Dalton Fernandez | ECON | Unknown | | + + + + + | Juana Fernandez | ECON | Unknown | | + + + + + Care Team Providers + +------+ + | Care Busboy Name | Role | Phone | + [...] | ORTHOPEDIC SURGERY | MD Swathi Gonzalez [facility] | subtrochanteric | | | | [address] [facility] | [place] | femur fracture, | | | | [place] | [address] | initial encounter | | | | [address] | | ([facility]) (Primary Dx) | | | | [phone] | | | +--------+ + + + [...] [place] | | | | | | [address] | | | | | | | [...] [address] | [place] | [phone] | | [facility] | | [address] | | | - IMAGING | | | | + + + + + documented in this encounter Visit Diagnoses + + | Diagnosis | + + | Closed left subtrochanteric femur fracture, initial encounter (HCC) - Primary | + + documented in this encounter"
--- OUTSIDE RECORDS SUMMARY | ~2019-07-02 | XMS | Encounter Summary ---
Demographics + + + | Address | [address] | | | [place] [address] | + + + | Home Phone | | + + + | Preferred Language | Unknown | + + + | Marital Status | | + + + | Worship Affiliation | 1076 | + + + | Race | Unknown | + + + | Ethnic Group | Unknown | + + + Author + + + | Author | [facility] | | | and Primo | + + + | Organization | [facility] | | | and [place] [...] [place], [place] | | | | | [address] | | + + + + + | Dalton Fernandez | ECON | Unknown | | + + + + + | Juana Fernandez | ECON | Unknown | | + + + + + Care Team Providers + +------+ + | Care Senior Applications Engineer Name | Role | Phone | [...] Description | +--------+--------+ + + + | 03/29/ | Refill | [facility] | Ramin Bess | Medication Refill | | 2017 | | ORTHOPEDIC SURGERY | MD Lisa [address] [facility] | | | | | [address] [facility] | [facility] [place] | | | | | [place] | [address] | | | | | [address] | | | | | | [phone] | | | +--------+--------+ + + + [...] [place] | | | | | | [address] | | | | | | | | +--------+---------+ + + + documented as of this encounter Visit Diagnoses Not on filedocumented in this encounter"
--- OUTSIDE RECORDS SUMMARY | ~2019-07-02 | XMS | Encounter Summary ---
Demographics + + + | Address | [address] | | | [place] [address] | + + + | Home Phone [...] Author | [facility] | | | and Primo | + + + | Organization | [facility] | [...] [place], [place] | | | | | [address] | | + + + + + | Dalton Fernandez | ECON | Unknown | | + + + + + | Juana Fernandez | ECON | Unknown | | + + + + + Care Team Providers + +------+ + | Care Telephone Supervisor Name | Role | Phone | + +------+ + | Dutch Rodriguez DO | PCP | | + +------+ + Encounter Details +--------+ + + + + | Date | Type | Department | Care Team | Description | +--------+ + + + + | 06/10/ | Hospital | [facility] | Douglas Nuñez MD | | | 2013 | Encounter | MED CTR XRAY [address] | [address] | | | | | [place] | [place] [address] | | | | | [place] [address] | [phone] | | | | | [phone] | | | +--------+ + + + [...] [place] | | | | | | [id number] | | | | | | | [...] + | MISCELLANEOUS LAB | | | [phone] | + +---------+ + + | MISCELANIOUS LAB | | | [phone] | + +---------+ + + documented in this encounter Visit Diagnoses Not on filedocumented in this encounter"
--- OUTSIDE RECORDS SUMMARY | ~2019-07-02 | XMS | Encounter Summary ---
Demographics + + + | Address | [address] | | | [place] [address] | + + + | Home Phone | | + + + | Preferred Language | Unknown | + + + | Marital Status | | + + + | Orthodox Affiliation | 1076 | + + + | Race | Unknown | + + + | Ethnic Group | Unknown | + + + Author + + + | Author | [facility] | | | and Primo | + + + | Organization | [facility] [...] [place], [place] | | | | | [address] | | + + + + + | Dalton Fernandez | ECON | Unknown | | + + + + + | Juana Fernandez | ECON | Unknown | | + + + + + Care Team Providers + +------+ + | Care Ophthalmology Assistant Name | Role | Phone | [...] | | ORTHOPEDIC SURGERY | MD Lisa [address] [place] [address] | osteoarthritis of | | | | [address] [place] [address] | [place] | left knee; Fitting | | | | [place] | [address] | and adjustment of | | | | [address] | | prosthetic device | | | | [phone] | | | +--------+ + + + [...] [place] | | | | | | [address] | | | | | | | [...]
--- OUTSIDE RECORDS SUMMARY | ~2019-07-02 | XMS | Encounter Summary ---
Demographics + + + | Address | [address] | | | [place] [address] | + + + | Home Phone [...] | [facility] | | | and Primo | + + + | Organization | [facility] [...] [place], [place] | | | | | [address] | | + + + + + | Dalton Fernandez | ECON | Unknown | | + + + + + | Juana Fernandez | ECON | Unknown | | + + + + + Care Team Providers + +------+ + | Care Exhaust Emissions Inspector Name | Role | Phone | + +------+ + | Dutch Rodriguez DO | PCP | | + +------+ + Encounter Details +--------+ + + + + | Date | Type | Department | Care Team | Description | +--------+ + + + + | 01/25/ | Hospital | [facility] | Ramin Bess | Closed left | | 2017 | Encounter | MED [facility] | MD Lisa [address] [facility] | subtrochanteric | | | | [address] [place] | [place] | femur fracture, | | | | [place] | [address] | initial encounter | | | | [address] | | ([facility]); Left knee | | | | [phone] | | pain, unspecified | | | | | | chronicity | +--------+ + + + + Social [...] | Visit | | MD Swathi Gonzalez [facility] | | | | | | [place] | | | | | | [address] | | | | | | | | +--------+---------+ + + + documented as of this encounter Procedures + +--------+ + + + | Procedure Name | Priori | Date/Time | Associated Diagnosis | Comments | | | ty | | | | + +--------+ + + + | XR KNEE LEFT 1 - 2 | Routin | 01/25/2017 | Closed left | Results for this | | VW | e | 2:26 PM | subtrochanteric | procedure are in the | | | | PDT | femur fracture, | results section. | | | | | initial encounter | | | | | | ([facility]) Left knee | | | | | | pain, unspecified | | | | | | chronicity | | + +--------+ + + + documented in this encounter Results XR Knee Left 1 - 2 Vw (01/25/2017 2:26 PM PDT) + + | Specimen | + + | | + + + + + | Narrative | Performed At | + + + | XR KNEE LEFT 1 - 2 VW 01/25/2017 2:26 PM HISTORY: LEFT KNEE PAIN. | [facility] | | COMPARISON: 12/26/2016 FINDINGS: Unchanged appearance of the | [facility] | | retrograde femoral diogo with proximal and distal interlocking screws | [facility] | | and unchanged appearance of the total left knee arthroplasty. There | - IMAGING | | has been interval continued callus and vertebral formation involving | | | the distal left femoral fracture with unchanged alignment. Mild | | | surrounding left knee soft tissue swelling is again noted. No evidence | | | of hardware complication. IMPRESSION - Intact left femoral and | | | knee arthroplasty internal fixation hardware. Mild soft tissue | | | swelling. Progressive, but incomplete healing of the comminuted | | | left distal femoral fracture. Dictated and Signed by: Walt | | | MD Neal Electronically signed: 01/25/2017 3:04 PM | | + + + + + | Procedure Note | + + | Silas, Rad Results In - 01/25/2017 3:07 PM PDT XR KNEE LEFT 1 - 2 VW 01/25/2017 2:26 PM | | | | HISTORY: LEFT KNEE PAIN. | | | | COMPARISON: 12/26/2016 | | | | FINDINGS: | | Unchanged appearance of the retrograde femoral diogo with proximal and distal | | interlocking screws and unchanged appearance of the total left knee | | arthroplasty. There has been interval continued callus and vertebral formation | | involving the distal left femoral fracture with unchanged alignment. Mild | | surrounding left knee soft tissue swelling is again noted. No evidence of | | hardware complication. | | | | IMPRESSION - | | Intact left femoral and knee arthroplasty internal fixation hardware. | | | | Mild soft tissue swelling. | | | | Progressive, but incomplete healing of the comminuted left distal femoral | | fracture. | | | | Dictated and Signed by: Walt De Jesus MD | | Electronically signed: 01/25/2017 3:04 PM | + + + + + + + | Performing | Address | City/State/Zipcode | Phone Number | | Organization | | | | + + + + + | [facility] | [address] | [place] | [phone] | | [facility] | | [address] | | | - IMAGING | | | | + + + + + documented in this encounter Visit Diagnoses + + | Diagnosis | + + | Closed left subtrochanteric femur fracture, initial encounter (HCC) | + + | Left knee pain, unspecified chronicity | + + documented in this encounter"
--- OUTSIDE RECORDS SUMMARY | ~2019-07-02 | XMS | Encounter Summary ---
Demographics + + + | Address | [address] | | | [place] [address] | + + + | Home Phone | | + + + | Preferred Language | Unknown | + + + | Marital Status | | + + + | Voodoo Affiliation | 1076 | + + + | Race | Unknown | + + + | Ethnic Group | Unknown | + + + Author + + + | Author | [facility] | | | and Primo | + + + | Organization | [facility] | | | and [place] [...] [place], [place] | | | | | [address] | | + + + + + | Dalton Fernandez | ECON | Unknown | | + + + + + | Juana Fernandez | ECON | Unknown | | + + + + + Care Team Providers + +------+ + | Care E Business Project Manager Name | Role | Phone | [...] | | | | | | | [place] [facility] | | | | | | [...] + + | 06/17/ | [facility] | [facility] | Douglas Nuñez MD | L4-5, L5-S1 TLIF, | | 2014 | | MED CTR OR INTRA OP | [address] | LEFT SIDED APPROACH | | | | [address] | [place] [address] | | | | | [place] | [phone] | | | | | [address] | | | | | | [phone] | | | +--------+---------+ + + + [...] might be different from t dontae original. [facility] NEUROSURGERY DISCHARGE SUMMARY Patient Name: Mike [...] MIREYA Salas - 06/18/2014 2:25 PM PST [facility] PROGRESS NOTE Pt. Name/Age/: Mike Fernandez 63 y.o. 1950 Med. Record Number: [id number] Date of admission: 06/17/2014 Subjective: The patient [...] Electronically signed by: Nino Hurst, [facility]18/[facility] documented in th is encounter Plan of Treatment +--------+---------+ + + + | Date | Type | Specialty | Care Team | Description | +--------+---------+ + + + | 07/22/ | Office | Orthopedic Surgery | Ramin Bess | | | 2018 | Visit | | MD Swathi Gonzalez | | | | | | [place] | | | | | | [phone] | | | | | | | [...] + | MISCELLANEOUS LAB | | | [phone] | + +---------+ + + | MISCELANIOUS LAB | | | [phone] | + +---------+ + + documented in [...] mLs | | Surgical | | 1:200,000 0.5-1:334111 % | | 14 2:54 | | | Site | | injection PRN, Starting Wed | | PM PST | | | | | 06/17/14 at 1454, Intra-op | | | | | | + +-------+ +--------+---+ + +---+---+ | | | +---+---+ documented in this encounter
--- OUTSIDE RECORDS SUMMARY | ~2019-07-02 | XMS | Encounter Summary ---
Demographics + + + | Address | [address] | | | [place] [address] | + + + | Home Phone | | + + + | Preferred Language | Unknown | + + + | Marital Status | | + + + | Episcopalian Affiliation | 1076 | + + + | Race | Unknown | + + + | Ethnic Group | Unknown | + + + Author + + + | Author | [facility] | | | and Primo | + + + | Organization | [facility] | | | and [place] [...] [place], [place] | | | | | [address] | | + + + + + | Dalton Fernandez | ECON | Unknown | | + + + + + | Juana Fernandez | ECON | Unknown | | + + + + + Care Team Providers + +------+ + | Care Electronic Publications Specialist Name | Role | Phone | [...] | | | | | [place], | [address] Phone: | | | | | | [place] | [phone] | | | | | | [address] | Fax: | | | | | | Phone: | [phone] | | | | | | [phone] | | | | | | | Fax: | | | | | | | [phone] | | + +--------+ + + + + Encounter Details +--------+---------+ + + + | Date | Type | Department | Care Team | Description | +--------+---------+ + + + | 06/17/ | Office | [facility] | Zachery Soria | Sprain of collateral | | 2019 | Visit | ORTHOPEDIC SURGERY | [address] | ligament of left | | | | [address] [facility] | [facility] | knee, initial | | | | [place], [place] | [place] [address] | encounter (Primary | | | | [address] | [phone] | Dx); Right knee | | | | [phone] | | pain, unspecified | | | [...] documented as of this encounter Progress Notes Zcahery Soria PA-C - 06/17/2019 10:45 AM PSTFormatting [...] describes that she spent the day in [place] for a doctor appointment a nd was running several errands to include a high degree of ambulation. She describes that s he drove back to her home in [place] and had her leg and a very [...] program. This note was dictated using the [employer] voice recognition system. Minor errors in grammar [...] [place] | | | | | | [address] | | | | | | | [...]
--- OUTSIDE RECORDS SUMMARY | ~2019-07-02 | XMS | Encounter Summary ---
Demographics + + + | Address | [address] | | | [place] [address] | + + + | Home Phone [...] Author | [facility] | | | and Primo | + + + | Organization | [facility] | | | and [place] [...] [place], [place] | | | | | [address] | | + + + + + | Dalton Fernandez | ECON | Unknown | | + + + + + | Juana Fernandez | ECON | Unknown | | + + + + + Care Team Providers + +------+ + | Care Electric Cell Tender Name | Role | Phone | + +------+ + | Dutch Rodriguez DO | PCP | | + +------+ + Encounter Details +--------+ + + + + | Date | Type | Department | Care Team | Description | +--------+ + + + + | 06/17/ | Hospital | [facility] | Zachery Soria | Sprain of collateral | | 2019 | Encounter | MED CTR [facility] | [address] | ligament of left | | | | [address] [place] | [facility] | knee, initial | | | | [place], [place] | [place] [address] | encounter; Left knee | | | | [address] | [phone] | pain, unspecified | | | | [phone] | | chronicity | +--------+ + + [...] + +---------+ + + | | Take 1 tablet by | | 0 | | | | Wjxbnpy-Ircyxdnry-Pa | mouth Daily. | | | | | | tamin D (CITRACAL | | | | | | | SLOW RELEASE) | | | | | | | 600-40-500 | | | | | | | MG-MG-UNIT TB24 | | | | | | + [...] + +---------+ + + | clindamycin | | | 0 | 06/25/20 | | | (CLEOCIN) 150 mg | | | | 18 | | | capsule | | | | | | + + + +---------+ + + | clindamycin | Take 2 capsule 1 | 2 | 0 | 04/21/20 | | | (CLEOCIN) 300 MG | hour prior to dental | capsule | | 19 | | | capsule | procedure | | | | | + + + +---------+ + + | CRANBERRY FRUIT PO | Take 200 mg by mouth | | 0 | | | | | in the morning and | | | | | | | in the evening. | | | | | + + + +---------+ + + | Cranberry-Vitamin | Take 1 each by mouth | | 0 | | | | C-Vitamin E | 2 times daily. | | | | | | (CRANBERRY | | | | | | | CONCENTRATE) | | | | | | | 140-100-3 MG-MG-UNIT | | | | | | | CAPS | | | | | | + + + +---------+ + + | EPIPEN 2-ARMIDA 0.3 | Inject 0.3 mg into | | 0 | 04/06/ | | | MG/0.3ML injection | the [...] | | | | capsule | mouth Daily. | | | | | + + + +---------+ + + | flintstones | Take 1 each by mouth | | 0 | | | | complete | Daily. | | | | | | (FLINTSTONES) | | | | | | | chewable tablet | | | | | | + + + +---------+ + + | fluconazole | | | 0 | 05//20 | | | (DIFLUCAN) 150 mg | | | | 19 | | | tablet | | | | | | + + + +---------+ + + | fluticasone | 1 spray by Nasal | | 0 | | | | (FLONASE) 50 | route Daily. | | | | | | mcg/nasal spray | | | | | | + + + +---------+ + + | folic acid 1 mg/mL | Take 667 mcg by | | 0 | | | | liquid | mouth Daily. | | | | | + + [...] + + + +---------+ + + | Insulin Pen Needle | use 1 NEEDLE DAILY | | 0 | 05/19/20 | | | (B-D UF III MINI | | | | 19 | | | PEN NEEDLES) 31G X 5 | | | | | | | MM MISC | | | | | | + + + +---------+ + + | Insulin Pen Needle | | | 0 | 04/17/20 | | | (BD PEN NEEDLE STEFFANIE | | | | 19 | | | U/F) 32G X 4 MM | | | | | | | MISC | | | | | | + + + +---------+ + + | Loratadine | Take 10 mg by mouth | | 0 | | | | (CLARITIN PO) | in the morning and | | | | | | | in the evening. | | | | | + + + +---------+ + + | magnesium 30 MG | Take 300 mg by mouth | | 0 | | | | tablet | Daily. | | | | | + + [...] + + + +---------+ + + | teriparatide | Inject 20 mcg under | | 0 | 08/29/19 | | | (FORTEO) 600 mcg/2.4 | the skin Daily. | | | 19 | | | mL injection | | | | | | + [...] [place] | | | | | | [id number] | | | | | | | [...] left knee, initial encounter | + + | Left knee pain, unspecified chronicity | + + documented in this encounter"
--- OUTSIDE RECORDS SUMMARY | ~2019-07-02 | XMS | Encounter Summary ---
Demographics + + + | Address | [address] | | | [place] [address] | + + + | Home Phone | | + + + | Preferred Language | Unknown | + + + | Marital Status | | + + + | Latter Day Affiliation | 1076 | + + + | Race | Unknown | + + + | Ethnic Group | Unknown | + + + Author + + + | Author | [facility] | | | and Prim[place] | + + + | Organization | [facility] | | | and [place] [...] [place], [place] | | | | | [address] | | + + + + + | Dalton Fernandez | ECON | Unknown | | + + + + + | Juana Fernandez | ECON | Unknown | | + + + + + Care Team Providers + +------+ + | Care Rolled Seat Trimmer Name | Role | Phone | + [...] | | Required | | pain | [address] | [address] | | | | | | [place], | [facility] | | | | | | [place] [address] | [facility] [place] | | | | | | Phone: | [address] Phone: | | | | | | [phone] | [phone] | | | | | | Fax: | Fax: | | | | | | [phone] | [phone] | +--------+ + + + + + Reason for Visit + + + | Reason | Comments | + + + | Follow-up | Post op | + + + Encounter Details +--------+---------+ + + + | Date | Type | Department | Care Team | Description | +--------+---------+ + + + | 09/18/ | Office | [facility] | Douglas Nuñez MD | S/P lumbar fusion | | 2015 | Visit | NEUROSURGERY [address] | [address] | (Primary Dx) | | | | [address] | [place] [address] | | | | | [place] | [phone] | | | | | [address] | | | | | | [phone] | | | +--------+---------+ + + + [...] from t dontae original. Douglas Nuñez MD [address] [place] [address], [facility] [address] [place], [place] [address] FAX: NEUROSURGERY FOLLOW-UP CHIEF COMPLAINT: Chief Complaint [...] Left; Surgeon: Douglas Nuñez MD; Loc ation: [facility] MAIN OR CURRENT MEDICATIONS: Current Outpatient [...] 2019 | Visit | | MD Lisa [address] [place] [address] | | | | | | [place] | | | | | | [phone] | | | | | | | | +--------+---------+ + + + documented as of this encounter Procedures + +--------+ + + + | Procedure Name | Priori | Date/Time | Associated Diagnosis | Comments | | | ty | | | | + +--------+ + + + | AMB REFERRAL TO [facility] | Routin | 12/08/2014 | S/P lumbar [...] 2014. FINDINGS:Frontal and lateral views of the [facility] | | lumbar spine. Posterior and interbody [...] Nointerval compression deformities. Stable severe compression deformity [id number] | | and more mild involving T11. [...] + | Performing | Address | City/State[facility] | Phone Number | | Organization | | | | + + + + + | [facility] | [address] | [place] | [phone] | | [facility] | | [address] | | | - IMAGING | | | | + + + + + documented in this encounter Visit Diagnoses + + | Diagnosis | + + | S/P lumbar fusion - Primary Arthrodesis status | + + documented in this encounter
--- OUTSIDE RECORDS SUMMARY | ~2019-07-02 | XMS | Encounter Summary ---
Demographics + + + | Address | [address] | | | [place] [address] | + + + | Home Phone | | + + + | Preferred Language | Unknown | + + + | Marital Status | | + + + | Religion Affiliation | 1076 | + + + | Race | Unknown | + + + | Ethnic Group | Unknown | + + + Author + + + | Author | [facility] | | | and [place] | + + + | Organization | [facility] | [...] [place], [place] | | | | | [address] | | + + + + + | Dalton Fernandez | ECON | Unknown | | + + + + + | Juana Fernandez | ECON | Unknown | | + + + + + Care Team Providers + +------+ + | Care Physical Science Technician Name | Role | Phone | + +------+ + | Dutch Rodriguez DO | PCP | | + +------+ + Encounter Details +--------+ + + + + | Date | Type | Department | Care Team | Description | +--------+ + + + + | 12/08/ | [facility] | [facility] | Ramin Bess | Bilateral knee pain | | 2015 | Encounter | MED CTR [facility] XRAY | MD Lisa [address] [facility] | | | | | [address] [place] | [place] | | | | | [place] | [address] | | | | | [address] | | | | | | [phone] | | | +--------+ + + + [...] [place] | | | | | | [address] | | | | | | | [...] + + | Performing | Address | City/State/[facility] | Phone Number | | Organization | | | | + + + + + | [facility] | [address] | [place] | [phone] | | [facility] | | [address] | | | - IMAGING | | | | + + + + + documented in this encounter Visit Diagnoses + + | Diagnosis | + + | Bilateral knee pain Pain in joint, lower leg | + + documented in this encounter"
--- OUTSIDE RECORDS SUMMARY | ~2019-07-02 | XMS | Encounter Summary ---
Demographics + + + | Address | [address] | | | [place] [address] | + + + | Home Phone [...] | Author | [facility] | | | and Primo | + + + | Organization | [facility] | | | and [place] | [...] [place], [place] | | | | | [address] | | + + + + + | Dalton Fernandez | ECON | Unknown | | + + + + + | Juana Fernandez | ECON | Unknown | | + + + + + Care Team Providers + +------+ + | Care Supervisor Paper Machine Name | Role | Phone | [...] | | | | | | | [place] [facility] | | | | | | [...] MED CTR OR INTRA OP | MD Lsia [address] | Arthroplasty | | | | [address] | [place], [place] | | | | | [place], [place] | [address] | | | | | [address] | | | | | | [phone] | | | +--------+---------+ + + + [...] controlled. Hospital Course: Pt was admitted to [facility] for a Right knee total [...] PA-C 05/28/2015. This not was dictated using [employer] Voice recognition system. There may be minor [...] maco or screws may be removed. [employer] [facility]. [address] [place], [place] [id number]. All righ ts reserved. This information is [...] also affect oth er joints nearby. [facility]. [address] [place] [address]. All righ ts reserved. This information is [...] Cycling and swimming are good choice s. [id number] [employer] [facility]. [address] [place] [address]. All righ ts reserved. This information is [...] by your healthcare provider Worsening joint pain [id number] [facility]. [address] [place] [address]. All righ ts reserved. This information is [...] can be very helpful for rheumatoid arthritis. [id number] [employer] [facility]. [address] [place] [address]. All righ ts reserved. This information is not intended as a substitute for professional medical care. Always follow your healthcare professional's instructions. AttachmentsThe following attachments cannot be sent through Care Everywhere.KNEE REPLACEMEN T, AFTER: HOSPITAL RECOVERY (NIGERIEN)KNEE REPLACEMENT, AFTER: KEEPING YOUR KNEE HEALTHY (TALIA PEDRAZA)KNEE REPLACEMENT, AFTER: RIGHT AFTER SURGERY (NIGERIEN)documented in this encounter Medications at Time of [...] has been changed since signin [facility] b complex vitamins tablet (Taking) Take 1 tablet by mouth Daily. Liquid B Complex Number of times this order has been changed since signin [facility] Calcium Carbonate (CALCIUM 600 PO) (Taking) Take by mouth in the morning and in the even ing. Number of times this order has been changed since signin [facility] Carboxymethylcellulose Sodium (REFRESH PLUS OP) (Taking) Apply to eye as needed. Number of times this order has been changed since signin [facility] cholecalciferol (VITAMIN D-3) 2000 UNITS TABS (Taking) Take 1,000 Units by mouth Daily. Number of times this order has been changed since signin [facility] CRANBERRY FRUIT PO (Taking) Take 200 mg by mouth in the morning and in the evening. Number of times this order has been changed since signin [facility] cyclobenzaprine (FLEXERIL) 10 mg tablet (Taking) Take 1 tablet by mouth every 8 hours as needed for Muscle spasms. Number of times this order has been changed since signin [facility] CycloSPORINE (RESTASIS OP) (Taking) Apply 1 drop to eye nightly. Number of times this order has been changed since signin [facility] IRON PO (Taking) Take by mouth in the morning and in the evening. Number of times this order has been changed since signin [facility] Loratadine (CLARITIN PO) (Taking) Take by mouth in the morning and in the evening. Number of times this order has been changed since signin [facility] minocycline (DYNACIN) 50 MG tablet (Taking) Take 50 mg by mouth every morning. Number of times this order has been changed since signin [facility] omeprazole (PRILOSEC) 20 mg capsule (Taking) Take 20 mg by mouth nightly. Number of times this order has been changed since signin [facility] Pediatric Multiple Vitamins (FLINTSTONES MULTIVITAMIN PO) (Taking) Take by mouth every m orning. Number of times this order has been changed since signin [facility] pilocarpine (SALAGEN) 5 mg tablet (Taking) Take 5 mg by mouth 4 times daily. Number of times this order has been changed since signin [facility] Probiotic Product (PROBIOTIC FORMULA) CAPS (Taking) Take 1 capsule by mouth daily (with b reakfast). Number of times this order has been changed since signin [facility] ASSESSMENT/PLAN: 1. Right total knee replacement A. Pt comfortable and stable. Anxious to be d/c today. Follow up in our office as karoul ed B. Patient is advised that if they have any questions, comments or concerns to contact our office. Electronically signed by: Zachery Soria PA-C 05/29/2015 7:18 This note was dictated using the [employer] voice recognition system. Minor errors in grammar [...] has been changed since signin [facility] b complex vitamins tablet (Taking) Take 1 tablet by mouth Daily. Liquid B Complex Number of times this order has been changed since signin [facility] Calcium Carbonate (CALCIUM 600 PO) (Taking) Take by mouth in the morning and in the even ing. Number of times this order has been changed since signin [facility] Carboxymethylcellulose Sodium (REFRESH PLUS OP) (Taking) Apply to eye as needed. Number of times this order has been changed since signin [facility] cholecalciferol (VITAMIN D-3) 2000 UNITS TABS (Taking) Take 1,000 Units by mouth Daily. Number of times this order has been changed since signin [facility] CRANBERRY FRUIT PO (Taking) Take 200 mg by mouth in the morning and in the evening. Number of times this order has been changed since signin [facility] cyclobenzaprine (FLEXERIL) 10 mg tablet (Taking) Take 1 tablet by mouth every 8 hours as needed for Muscle spasms. Number of times this order has been changed since signin [facility] CycloSPORINE (RESTASIS OP) (Taking) Apply 1 drop to eye nightly. Number of times this order has been changed since signin [facility] IRON PO (Taking) Take by mouth in the morning and in the evening. Number of times this order has been changed since signin [facility] Loratadine (CLARITIN PO) (Taking) Take by mouth in the morning and in the evening. Number of times this order has been changed since signin [facility] minocycline (DYNACIN) 50 MG tablet (Taking) Take 50 mg by mouth every morning. Number of times this order has been changed since signin [facility] omeprazole (PRILOSEC) 20 mg capsule (Taking) Take 20 mg by mouth nightly. Number of times this order has been changed since signin [facility] Pediatric Multiple Vitamins (FLINTSTONES MULTIVITAMIN PO) (Taking) Take by mouth every m orning. Number of times this order has been changed since signin [facility] pilocarpine (SALAGEN) 5 mg tablet (Taking) Take 5 mg by mouth 4 times daily. Number of times this order has been changed since signin [facility] Probiotic Product (PROBIOTIC FORMULA) CAPS (Taking) Take 1 capsule by mouth daily (with b reakfast). Number of times this order has been changed since signin [facility] ASSESSMENT/PLAN: 1. Right total knee replacement A. [...] 12:20 This note was dictated using the [employer] voice recognition system. Minor errors in grammar [...] has been changed since signin [facility] b complex vitamins tablet (Taking) Take 1 tablet by mouth Daily. Liquid B Complex Number of times this order has been changed since signin [facility] Calcium Carbonate (CALCIUM 600 PO) (Taking) Take by mouth in the morning and in the even ing. Number of times this order has been changed since signin [facility] Carboxymethylcellulose Sodium (REFRESH PLUS OP) (Taking) Apply to eye as needed. Number of times this order has been changed since signin [facility] cholecalciferol (VITAMIN D-3) 2000 UNITS TABS (Taking) Take 1,000 Units by mouth Daily. Number of times this order has been changed since signin [facility] CRANBERRY FRUIT PO (Taking) Take 200 mg by mouth in the morning and in the evening. Number of times this order has been changed since signin [facility] cyclobenzaprine (FLEXERIL) 10 mg tablet (Taking) Take 1 tablet by mouth every 8 hours as needed for Muscle spasms. Number of times this order has been changed since signin [facility] CycloSPORINE (RESTASIS OP) (Taking) Apply 1 drop to eye nightly. Number of times this order has been changed since signin [facility] IRON PO (Taking) Take by mouth in the morning and in the evening. Number of times this order has been changed since signin [facility] Loratadine (CLARITIN PO) (Taking) Take by mouth in the morning and in the evening. Number of times this order has been changed since signin [facility] minocycline (DYNACIN) 50 MG tablet (Taking) Take 50 mg by mouth every morning. Number of times this order has been changed since signin [facility] omeprazole (PRILOSEC) 20 mg capsule (Taking) Take 20 mg by mouth nightly. Number of times this order has been changed since signin [facility] Pediatric Multiple Vitamins (FLINTSTONES MULTIVITAMIN PO) (Taking) Take by mouth every m orning. Number of times this order has been changed since signin [facility] pilocarpine (SALAGEN) 5 mg tablet (Taking) Take 5 mg by mouth 4 times daily. Number of times this order has been changed since signin [facility] Probiotic Product (PROBIOTIC FORMULA) CAPS (Taking) Take 1 capsule by mouth daily (with b reakfast). Number of times this order has been changed since signin [facility] ASSESSMENT/PLAN: 1. Total right knee arthroplasty A. [...] 8:21 This note was dictated using the [employer] voice recognition system. Minor errors in grammar [...] [place] | | | | | | [address] | | | | | | | [...] + | [facility] | [address] | [place] | [phone] | | [facility] | | [address] | | | - LABORATORY | | [...] mL/min/1.73m2 | [facility] | | | [place] | RATE,ESTIMATED | | MEDICAL | | | | mL/min/1.17e2Oxux than | | CENTER - | | [...] ST. | [address] | [place], [place] | [phone] | | [facility] | | [address] | | | - LABORATORY | | [...]
--- OUTSIDE RECORDS SUMMARY | ~2019-07-02 | XMS | Encounter Summary ---
Demographics + + + | Address | [address] | | | [place] [address] | + + + | Home Phone [...] | Author | [facility] | | | and Primo | + + + | Organization | [facility] | | | and [place] | + + + | Address | Unknown | + + + | Phone | Unavailable | + + + Support + + + + + | Name | Relationship | Address | Phone | + + + + + | Devang Fernandez | [place] | [address] | | | | | [place], [place] | | | | | [address] | | + + + + + | Dalton Fernandez | ECON | Unknown | | + + + + + | Juana Fernandez | ECON | Unknown | | + + + + + Care Team Providers + +------+ + | Care Underwriting Manager Name | Role | Phone | [...] Primary | Ramin Gonzalez, | [address] | | | | | osteoarthrit | [address] | [place], | | | | | is of left | [address] | [place] | | | | | knee | [place], | [address] | | | | | Fitting and | [place] [address] | Phone: | | | | | adjustment | Phone: | [phone] | | | | | of | [phone] | Fax: | | | | | prosthetic | Fax: | [phone] | | | | | device | [phone] | | | | | | Procedures [...] | | ORTHOPEDIC SURGERY | MD Lisa [address] [place] [address] | osteoarthritis of | | | | [address] [place] [address] | [place] | left knee (Primary | | | | [place], [place] | [address] | Dx); Fitting and | | | | [address] | | adjustment of | | | | [phone] | | prosthetic device | +--------+ + [...] 2019 | Visit | | MD Lisa [address] [place] [address] | | | | | | [place] | | | | | | [address] | | | | | | | [...]
--- OUTSIDE RECORDS SUMMARY | ~2019-07-02 | XMS | Encounter Summary ---
Demographics + + + | Address | [address] | | | [place] [address] | + + + | Home Phone | | + + + | Preferred Language | Unknown | + + + | Marital Status | | + + + | Zoroastrian Affiliation | 1076 | + + + | Race | Unknown | + + + | Ethnic Group | Unknown | + + + Author + + + | Author | [facility] | | | and Primo | + + + | Organization | [facility] | | [...] [place], [place] | | | | | [address] | | + + + + + | Dalton Fernandez | ECON | Unknown | | + + + + + | Juana Fernandez | ECON | Unknown | | + + + + + Care Team Providers + +------+ + | Care Physician Practice Administrator Name | Role | Phone | + [...] | | | | | | | [facility] | | | | | | [...] + + | 06/17/ | Hospital | [facility] | Douglas Nuñez MD | Acquired | | 2013 | Encounter | MED CTR XRAY [address] | [address] | spondylolisthesis | | | | [place] | [place] [address] | (Primary Dx) | | | | [place] [address] | [phone] | | | | | [phone] | | | +--------+ + + + [...] [place] | | | | | | [address] | | | | | | | [...]
--- OUTSIDE RECORDS SUMMARY | ~2019-07-02 | XMS | Encounter Summary ---
Demographics + + + | Address | [address] | | | [place] [address] | + + + | Home Phone [...] | [facility] | | | and Primo | + + + | Organization | [facility] | | | and [...] [place] | | | | | [address] | | + + + + + | Dalton Fernandez | ECON | Unknown | | + + + + + | Juana Fernandez | ECON | Unknown | | + + + + + Care Team Providers + +------+ + | Care Forestry Aid Name | Role | Phone | + [...] | | [address] | [place] [address] | | | | | [place] | [phone] | | | | | [address] | | | | | | [phone] | | | +--------+ + + + [...] 2019 | Visit | | MD Lisa [address] [place] [address] | | | | | | [place] | | | | | | [id number] | | | | | | | [...] COMPARISON: LUMBAR MRI DECEMBER 03, 2013 FROM [facility] | LAB | | [facility] FINDINGS: AP, lateral bending and flexion/extension [...] painCOMPARISON: LUMBAR MRI DECEMBER 03, 2013 FROM [facility] | | HOSPITALFINDINGS: AP, lateral bending and [...] + | MISCELLANEOUS LAB | | | [phone] | + +---------+ + + | [facility] | | | [phone] | + +---------+ + + documented in this encounter Visit Diagnoses + + | Diagnosis | + + | Back pain - Primary Backache, unspecified | + + documented in this encounter"
--- OUTSIDE RECORDS SUMMARY | ~2019-07-02 | XMS | Encounter Summary ---
Demographics + + + | Address | [address] | | | [place] [address] | + + + | Home Phone [...] | Author | [facility] | | | and Primo | + + + | Organization | [facility] | | | and [...] [place], [place] | | | | | [address] | | + + + + + | Dalton Fernandez | ECON | Unknown | | + + + + + | Juana Fernandez | ECON | Unknown | | + + + + + Care Team Providers + +------+ + | Care Wellfield Technician Name | Role | Phone | [...] | | | | | | | NM TOTAL | | | | | | [...] + + + + | 02/08/ | Hospital | [facility] | Ramin Bess | Primary | | 2016 - | Encounter | [facility] | MD Lisa [address] [facility] | osteoarthritis of | | | | [address] [place] | [place] | left knee (Primary | | 02/11/ | | [place] [address] | [address] | Dx) | | 2015 | | [phone] | | | +--------+ + + + [...] + + + | Blood Pressure | 111/58 | 02/12/2016 8:31 AM | | | | | PDT | | + + + + + | Pulse | 93 | 02/12/2016 8:31 AM | | | | | PDT | | + + + + + | Temperature | 36.9 C (98.4 F) | 02/12/2016 8:31 AM | | | | | PDT | | + + + + + | Respiratory Rate | 16 | 02/12/2016 8:31 AM | | | | | PDT | | + + + + + | Oxygen Saturation | 95% | 02/12/2016 8:31 AM | | | | | PDT | | + + + + + | Inhaled Oxygen | - | - | | | Concentration | | | | + + + + + | Weight | 70.3 kg (154 lb 15.7 | 02/09/2016 7:00 AM | | | | oz) | PDT | | + + + + + | Height | 157.5 cm (5' 2") | 02/09/2016 7:00 AM | | | | | PDT | | + + + + + | Body Mass Index | 28.35 | 02/09/2016 7:00 AM | | | | | PDT [...] documented as of this encounter Discharge Summaries Chris French MD - 02/12/2016 8:34 AM PDTFormatting of this note might be different fro m the original. DISCHARGE SUMMARY Pt. Name/Age/: Ana Foster Jim 65 y.o. 1950 Date of Admission: 02/09/2016 Date of Discharge: 02/12/2016 Admitting Physician: Ramin Bess* PCP: Dutch Rodriguez Discharging Physician: Chris French MD Primary Discharge Dx: S/p left total knee arthroplasty Secondary Discharge Dx: Patient Active Problem List Diagnosis Gastric reflux Migraine Spondylolisthesis of lumbar region Lumbar radiculopathy Back pain S/P lumbar fusion Primary osteoarthritis of right knee Primary osteoarthritis of left knee Hospital Course, including Complications: patient was mobilized on the first postop day. Sh jude did well in physical therapy and on postop day two her dressings changed to aquacel. Her w ound remained clean and dry during her hospital stay She is on the cpm and progressing well with range of motion Her calves are nontender and she she is mobilizing well with the FWW with physical therapy She is tolerating pain with hydrocodone alone and doesn't want to go home with oxycodone She doesn't want to do home health as she knows what to do as she had her other side done p reviously She wants to go straight to outpatient therapy at the [facility] in [place] and work with Che , the PT that worked with her before She is on xarelto for dvt prophylaxis and the scrip has already been filled She is safe for discharge to home at this time Pertinent Diagnostic Info/Data: Medications Reconciled upon Discharge are: Discharge Medications New Medications Details docusate sodium 100 MG capsule Take 100 mg by mouth Twice daily as needed for Constipation. aka: COLACE HYDROcodone-acetaminophen 10-325 mg per tablet Replaces: HYDROcodone-acetaminophen 5-325 mg per tablet Take 1-2 tablets by mouth every 4 hours as needed for Pain. aka: NORCO Misc. Devices Misc - Set up at 0-60 degrees and increase as tolerated. Duration 3 weeks and diagnosis is TKA. - Increase as tolerated to 0-100 - 4 hours per day minimum Changed Medications Details rivaroxaban 10 mg tablet Take 1 tablet by mouth Daily (with dinner). START TAKING AFTER DISCHARGED FROM HOSPITAL What changed: Another medication with the same name was added. Make sure you understand ho w and when to take each. aka: XARELTO rivaroxaban 10 mg tablet Take 1 tablet by mouth Daily (with dinner). What changed: You were already taking a medication with the same name, and this prescripti on was added. Make sure you understand how and when to take each. aka: XARELTO Unchanged Medications Details B complex vitamins tablet Take 1 tablet by mouth Daily. Liquid B Complex CALCIUM 600 PO Take by mouth in the morning and in the evening. cefadroxil 500 mg capsule One tablet in morning and one in evening the day before dental procedure. aka: DURICEF CHELATED MAGNESIUM PO Take by mouth. cholecalciferol 2000 UNITS Tabs Take 1,000 Units by mouth Daily. aka: VITAMIN D-3 CLARITIN PO Take by mouth in the morning and in the evening. clindamycin 300 MG capsule Take 2 capsule 1 hour prior to dental procedure. aka: CLEOCIN CRANBERRY FRUIT PO Take 200 mg by mouth in the morning and in the evening. cyclobenzaprine 10 mg tablet Take 1 tablet by mouth every 8 hours as needed for Muscle spasms (FURTHER REFILLS NEED TO COME FROM PCP). aka: FLEXERIL FLINTSTONES MULTIVITAMIN PO Take by mouth every morning. hydroxypropyl cellulose 5 MG Inst 5 mg Daily. IRON PO Take by mouth in the morning and in the evening. minocycline 50 MG tablet Take 50 mg [...] OP Apply 1 drop to eye nightly. RESTASIS 0.05% ophthalmic emulsion Generic drug: cycloSPORINE Place 1 drop into both eyes 2 times daily. Discontinued Medications aspirin 325 mg tablet fish oil 1,000 mg capsule HYDROcodone-acetaminophen 5-325 mg per tablet aka: NORCO Replaced by: HYDROcodone-acetaminophen 10-325 mg per tablet ibuprofen 800 MG tablet aka: ADVIL,MOTRIN Condition on Discharge: Stable Disposition: Patient was discharged to home Follow-Up Plans: 1-[address] Bess She will remove the aquacel in a week and shower normally without a dressing at that time a nd will call if any wound concerns Code Status/Advance Directive (Pertinent discussions/declarations): Full Code Electronically signed by: Chris French, 02/12/2016 8:34 [facility] documented in this en counter Discharge Instructions Instructions Chris French MD - 02/12/2016Ok to shower with waterproof dressing in place Call if any concerns with the wound or dressing Leave in place for one week then can remove and still shower uncovered documented in this encounter Medications at Time [...] tablet by | 90 | 0 | 01/04/20 | | | (FLEXERIL) 10 mg | [...] rivaroxaban | Take 1 tablet by | | 0 | 02/12/20 | | | (XARELTO) 10 mg | mouth Daily (with | | | 16 | 6 | | tablet | dinner). | | | | | [...] encounter Progress Notes Ramin Bess MD - 02/11/2016 9:52 AM PDTORTHO pod # 2 Expected pain controlled with medication. Eating well. PT proceeding steadily. Afebile, VSS. Bandaged removed and Aquacel applied. Some bruising, no drainage. NV function intact to feet. Plan: PT, mobilize D/C to home tomorrow. Has Xarelto at home. Needs [place] . Zachery Odonnell PA-C - 02/2016 1:32 PM PDT Name:Ana Villaseñor Date: 02/10/2016 SUBJECTIVE: Laying in bed comfortably; pain rated at .5 / 10. No other complaints OBJECTIVE: CPM machined from left knee shortly after entering room. Flexmaster bandage in place; no s ignificant drainage is observed. Moves left toes well. No acute SOA is observed. Vitals w/in normal limits; BMP, H & H, Normal Vitals with Comments 02/09/2016 02/09/2016 02/10/2016 02/10/2016 SYSTOLIC - 111 127 108 DIASTOLIC - 67 67 55 Pulse 105 98 95 94 Temp - 97.3 96.8 96.1 Resp - 18 18 16 Weight - - - - Height - - - - SPO2 93 96 97 95 BMI - - - - Pain Score - - - - Pain Loc - - - - Pain Edu? - - - - I/O last 3 completed shifts: In: 3501 [P.O.:1390; I.V.:2005; IV Piggyback:105] Out: 4100 [Urine:4100] Filed Vitals: 02/09/16 2115 02/09/16 2345 02/10/16 0433 02/10/16 0700 BP: 111/67 127/67 108/55 Pulse: 105 98 95 94 Temp: 36.3 C (97.3 F) 36 C (96.8 F) 35.6 C (96.1 F) TempSrc: Oral Oral Oral Resp: 18 16 Height: Weight: SpO2: 93% 96% 97% 95% Recent Results (from the past 24 hour(s)) Basic Metabolic Panel Collection Time: 02/10/16 6:19 Result Value Ref Range NA 142 136-149 mmol/L K 4.1 3.5-5.1 mmol/L CL 107 98-109 mmol/L CO2 25 24-31 mmol/L ANION GAP 10 3-16 mmol/L GLUCOSE 115 (H) 70-109 mg/dL BUN 13 7-18 mg/dL Creatinine, Serum/Plasma 0.61 0.60-1.30 mg/dL eGFR if not >60 >=60 mL/min/1.73m2 CALCIUM 8.4 8.3-10.5 mg/dL BUN/CREA 21.3 Hemoglobin and Hematocrit Collection Time: 02/10/16 6:20 Result Value Ref Range Hgb 11.7 11.5-16.0 g/dL Hct 35.9 34.0-47.0 % Scheduled Meds: cycloSPORINE 1 drop Both Eyes Nightly cycloSPORINE 1 drop Both Eyes BID pantoprazole 40 mg Oral Nightly pilocarpine 5 mg Oral 4x Daily rivaroxaban 10 mg Oral Daily with dinner Continuous Infusions: lactated ringers 50 mL/hr at 02/09/161952 PRN Meds:.acetaminophen, aluminum & magnesium hydroxide-simethicone, bisacodyl, cyclobenzap rine, diphenhydrAMINE OR diphenhydrAMINE OR diphenhydrAMINE, docusate sodium, famoti dine, HYDROmorphone, HYDROmorphone, loratadine, [START ON 02/11/2016] magnesium hydroxide, men thol throat lozenges, metoclopramide (REGLAN) injection, metoclopramide, ondansetron, oxyCOD ONE, oxyCODONE-acetaminophen, polyethylene glycol, zolpidem ASSESSMENT/PLAN: 1.Left total knee arthroplasty A. Pt recovering well. Reminded pt that block will continue to wear off during day and in formed to notify nursing staff as pain increases. Encouraged engagement w/ PT and OT today. Encouraged increase of fluids today. Continue w/ current tx plan. B. Patient is advised that if they have any questions, comments or concerns to contact our office. Electronically signed by: Zachery Soria PA-C 02/10/2016 13:32 This note was dictated using the [employer] voice recognition system. Minor errors in grammar [...] [place] | | | | | | [address] | | | | | | | | +--------+---------+ + + + documented as of this encounter Procedures + +--------+ + + + | Procedure Name | Priori | Date/Time | Associated Diagnosis | Comments | | | ty | | | | + +--------+ + + + | HEMOGLOBIN AND | Routin | 02/10/2016 | | Results for this | | HEMATOCRIT | e | 6:20 AM | | procedure are in the | | | | PDT | | results section. | + +--------+ + + + | BASIC METABOLIC | Routin | 02/10/2016 | | Results for this | | PANEL | e | 6:19 AM | | procedure are in the | | | | PDT | | results section. | + +--------+ + + + | XR KNEE LEFT 1 - 2 | STAT | 02/09/2016 | | Results for this | | VW | | 10:18 AM | | procedure are in the | | | | PDT | | results section. | + +--------+ + + + | ARTHROPLASTY KNEE | | 02/09/2016 | Primary | | | | | 7:35 AM | osteoarthritis of | | | | | PDT | left knee | | + +--------+ + + + +---+--------+ | | | | | Specia | | | l | | | Needs | | | Douglas | | | Maame | | | - | | | Christiane | +---+--------+ documented in this encounter Results Hemoglobin and Hematocrit (02/10/2016 6:20 AM PDT) + +-------+ + + + | Component | Value | Ref Range | Performed | Pathologist | | | | | At | Signature | + +-------+ + + + | Hemoglobin | 11.7 | 11.5 - 16.0 | [facility] | | | | | g/dL | [facility] | | | | | | [facility] | | | | | | [facility] - | | | | | | LABORATORY | | + +-------+ + + + | Hematocrit | 35.9 | 34.0 - 47.0 % | [facility] [...] + | [facility] | [address] | [place] | [phone] | | [facility] | | [address] | | | - LABORATORY | | | | + + + + + Basic Metabolic Panel (02/10/2016 6:19 AM PDT) + + + + + + | Component | Value | Ref Range | Performed | Pathologist | | | | | At | Signature | + + + + + + | Na | 142 | 136 - 149 | [facility] | [...] + + + + | Cl | 107 | 98 - 109 mmol/L | [facility] [...] + + + | Anion Gap | 10 | 3 - 16 mmol/L | [facility] | | | | | | [facility] | | | | | | MEDICAL | | | | | | C[facility] - | | | | | | LABORATORY | | + + + + + + | Glucose | 115 (H) | 70 - 109 mg/dL | [facility] | | | | | | [facility] | | | | | | MEDICAL | | | | | | CENTER - | | | | | | LABORATORY | | + + + + + + | BUN | 13 | 7 - 18 mg/dL | [facility] | | | | | | [facility] | | | | | | MEDICAL | | | | | | CENTER - | | | | | | LABORATORY | | + + + + + + | Creatinine | 0.61 | 0.60 - 1.30 | [facility] | [...] mL/min/1.73m2 | [facility] | | | GERMAN | RATE,ESTIMATED | | MEDICAL | | | | mL/min/1.41w7Ylna than | | CENTER - | | [...] + + + + | Calcium | 8.4 | 8.3 - 10.5 | [facility] | | | | | mg/dL | [facility] | | | | | [facility] | | | | | | C[facility] - | | | | | | LABORATORY | | + + + + + + | BUN/Creatin | 21.3 | | [facility] | | | ine [...] ST. | [address] | [place] | [phone] | | [facility] | | [address] | | | - LABORATORY | | | | + + + + + XR Knee Left 1 - 2 Vw (02/09/2016 10:18 AM PDT) + + | Specimen | + + | | + + + + + | Narrative | Performed At | + + + | XR KNEE LEFT 1 - 2 VW. 02/09/2016 10:18 AM HISTORY: left total | [facility] | | knee arthroplasty . COMPARISON: 12/08/2014 FINDINGS: | | | Placement of left total knee arthroplasty prosthesis noted, in | | | satisfactory position and alignment, without periprosthetic fracture | | | or loosening. Expected gas is seen within the joint capsule space, | | | as well as in the overlying soft tissues. Skin staple line seen | | | anteriorly. IMPRESSION - Placement of total knee arthroplasty in | | | satisfactory position and alignment, without evidence of hardware | | | complication. Expected postsurgical change. Dictated and Signed | | | by: Kamaljit Rosa MD Electronically signed: 02/09/2016 1:46 PM | | + + + + + | Procedure Note | + + | Vinod Rosen Results In - 02/09/2016 1:49 PM PDT XR KNEE LEFT 1 - 2 VW. 02/09/2016 10:18 | | AMHISTORY: left total knee arthroplasty . COMPARISON: 12/08/2014FINDINGS:Placement of | | left total knee arthroplasty prosthesis noted, in satisfactoryposition and alignment, | | without periprosthetic fracture or loosening. Expectedgas is seen within the joint | | capsule space, as well as in the overlying softtissues. Skin staple line seen | | anteriorly.IMPRESSION -Placement of total knee arthroplasty in satisfactory position and | | alignment,without evidence of hardware complication. Expected postsurgical | | change.Dictated and Signed by: Kamaljit Rosa MD Electronically signed: 02/09/2016 1:46 | | PM | |gas is seen within the joint capsule space, as well as in the overlying soft | |tissues. Skin staple line seen anteriorly. | | | |IMPRESSION - | |Placement of total knee arthroplasty in satisfactory position and alignment, | |without evidence of hardware complication. Expected postsurgical change. | | | |Dictated and Signed by: Kamaljit Rosa MD | | Electronically signed: 02/09/2016 1:46 PM | + + + +---------+ + [...] | + + documented in this encounter Admitting Diagnoses + + | Diagnosis | + + | Primary osteoarthritis of left knee Primary localized osteoarthrosis, lower leg | + + documented in this encounter Administered Medications + +---------+ +------+-------+------+ | Medication Order | MAR | Action | Dose | Rate | Site | | | Action | Date | | | | + +---------+ +------+-------+------+ | ceFAZolin (ANCEF, KEFZOL) 1 g | New Bag | 02/10/20 | 1 g | 100 | | | in sodium chloride 0.9% 50 mL | | 16 1:14 | | mL/hr | | | IVPB 1 g, Intravenous, | | AM PDT | | | | | Administer over 30 Minutes, EVERY | | | | | | | 6 HOURS INTERVAL, First dose on | | | | | | | 02/09/16 at 1300, For 3 doses, | | | | | | | Start 8 hours after previous | | | | | | | dose. Last dose to be given | | | | | | | within 24 hours of surgery end | | | | | | | time. Activate system and mix | | | | | | | before use., Post-op/Phase II, | | | | | | | Indications: Surgical Prophylaxis | | | | | | + +---------+ +------+-------+------+ +---------+ +-----+-------+---+ | New Bag | 02/09/20 | 1 g | 100 | | | | 16 7:51 | | mL/hr | | | | PM PDT | | | | +---------+ +-----+-------+---+ | New Bag | 02/09/20 | 1 g | 100 | | | | 16 12:41 | | mL/hr | | | | PM PDT | | | | +---------+ +-----+-------+---+ +---+---+ | | | +---+---+ + +-------+ +-------+---+---+ | cyclobenzaprine (FLEXERIL) | Given | 02/12/20 | 10 mg | | | | tablet 10 mg 10 mg, Oral, EVERY | | 16 5:59 | | | | | 8 HOURS PRN, Muscle spasms, | | AM PDT | | | | | FURTHER REFILLS NEED TO COME FROM | | | | | | | PCP, Starting 02/09/16 at 1056 | | | | | | + +-------+ +-------+---+---+ +-------+ +-------+---+---+ | Given | 02/11/20 | 10 mg | | | | | 16 6:46 | | | | | | PM PDT | | | | +-------+ +-------+---+---+ | Given | 02/11/20 | 10 mg | | | | | 16 5:32 | | | | | | AM PDT | | | | +-------+ +-------+---+---+ +---+---+ | | | +---+---+ + +-------+ +--------+---+---+ | cycloSPORINE (RESTASIS) 0.05% | Given | 02/11/20 | 1 drop | | | | ophthalmic emulsion 1 drop 1 | | 16 8:36 | | | | | drop, Both Eyes, NIGHTLY, First | | PM PDT | | | | | dose on Sun02/09/16 at 2100 | | | | | | + +-------+ +--------+---+---+ +-------+ +--------+---+---+ | Given | 02/10/20 | 1 drop | | | | | 16 9:26 | | | | | | PM PDT | | | | +-------+ +--------+---+---+ | Given | 02/09/20 | 1 drop | | | | | 16 9:04 | | | | | | PM PDT | | | | +-------+ +--------+---+---+ +---+---+ | | | +---+---+ + +-------+ +--------+---+---+ | cycloSPORINE (RESTASIS) 0.05% | Given | 02/12/20 | 1 drop | | | | ophthalmic emulsion 1 drop 1 | | 16 9:34 | | | | | drop, Both Eyes, 2 TIMES DAILY, | | AM PDT | | | | | First dose on Sun02/10/16 at 0900, | | | | | | | Hazardous: Use appropriate | | | | | | | handling precautions., | | | | | | + +-------+ +--------+---+---+ +-------+ +--------+---+---+ | Given | 02/11/20 | 1 drop | | | | | 16 8:42 | | | | | | PM PDT | | | | +-------+ +--------+---+---+ | Given | 02/11/20 | 1 drop | | | | | 16 8:29 | | | | | | AM PDT | | | | +-------+ +--------+---+---+ +---+---+ | | | +---+---+ + +-------+ +--------+---+---+ | docusate sodium (COLACE) | Given | 02/11/20 | 100 mg | | | | capsule 100 mg 100 mg, Oral, 2 | | 16 5:28 | | | | | TIMES DAILY PRN, Constipation, | | AM PDT | | | | | Starting 02/09/16 at 1056, | | | | | | | First line agent for | | | | | | | constipation, Post-op/Phase II | | | | | | + +-------+ +--------+---+---+ +-------+ +--------+---+---+ | Given | 02/10/20 | 100 mg | | | | | 16 9:25 | | | | | | PM PDT | | | | +-------+ +--------+---+---+ | Given | 02/09/20 | 100 mg | | | | | 16 9:04 | | | | | | PM PDT | | | | +-------+ +--------+---+---+ +---+---+ | | | +---+---+ + +---------+ +---+---+---+ | lactated ringers (LR) infusion | New Bag | 02/09/20 | | | | | at 10-100 mL/hr, Intravenous, | | 16 9:26 | | | | | CONTINUOUS, Starting 02/09/16 | | AM PDT | | | [...] +---+ +---+---+ | | | +---+---+ + +---------+ +---+ +---+ | lactated ringers (LR) infusion | New Bag | 02/09/20 | | 50 mL/hr | | | at 100 mL/hr, Intravenous, | | 16 7:53 | | | | | CONTINUOUS, Starting 02/09/16 | | PM PDT | | | | | at 1115, Post-op/Phase II | | | | | | + +---------+ +---+ +---+ +---------+ +---------+-------+---+ | New Bag | 02/09/20 | 500 mLs | 100 | | | | 16 11:50 | | mL/hr | | | | AM PDT | | | | +---------+ +---------+-------+---+ +---+---+ | | | +---+---+ + +-------+ +-------+---+---+ | oxyCODONE (ROXICODONE) tablet | Given | 02/12/20 | 10 mg | | | | 5-20 mg 5-20 mg, Oral, EVERY 3 | | 16 1:14 | | | | | HOURS PRN, Pain, Starting Wed | | PM PDT | | | | | 02/09/16 at 1056, If ineffective or | | | | | | | not tolerated use hydromorphone | | | | | | | if ordered., Post-op/Phase II | | | | | | + +-------+ +-------+---+---+ +-------+ +-------+---+---+ | Given | 02/12/20 | 10 mg | | | | | 16 5:57 | | | | | | AM PDT | | | | +-------+ +-------+---+---+ | Given | 02/11/20 | 10 mg | | | | | 16 11:27 | | | | | | PM PDT | | | | +-------+ +-------+---+---+ +---+---+ | | | +---+---+ + +-------+ + +---+---+ | oxyCODONE-acetaminophen | Given | 02/11/20 | 1 tablet | | | | (PERCOCET) 5-325 mg per tablet | | 16 8:29 | | | | | 1-2 tablet 1-2 tablet, Oral, | | AM PDT | | | | | EVERY 4 HOURS PRN, Pain, Starting | | | | | | | 02/09/16 at 1056, If | | | | | | | ineffective use Oxycodone if | | | | | | | ordered. If not tolerated use | | | | | | | [place] 10/325 if ordered., | | | | | | | Post-op/Phase II | | | | | | + +-------+ + +---+---+ +-------+ + +---+---+ | Given | 02/11/20 | 2 | | | | | 16 12:47 | tablets | | | | | AM PDT | | | | +-------+ + +---+---+ | Given | 02/10/20 | 1 tablet | | | | | 16 9:25 | | | | | | PM PDT | | | | +-------+ + +---+---+ +---+---+ | | | +---+---+ + +-------+ +-------+---+---+ | pantoprazole (PROTONIX) DR | Given | 02/11/20 | 40 mg | | | | tablet 40 mg 40 mg, Oral, | | 16 8:36 | | | | | NIGHTLY, First dose on Sun02/09/16 | | PM PDT | | | | | at 2100, Therapeutic Interchange | | | | | | | for omeprazole. Do not cut or | | | | | | | crush., | | | | | | + +-------+ +-------+---+---+ +-------+ +-------+---+---+ | Given | 02/10/20 | 40 mg | | | | | 16 9:25 | | | | | | PM PDT | | | | +-------+ +-------+---+---+ | Given | 02/09/20 | 40 mg | | | | | 16 9:03 | | | | | | PM PDT | | | | +-------+ +-------+---+---+ +---+---+ | | | +---+---+ + +-------+ +------+---+---+ | pilocarpine (SALAGEN) tablet 5 | Given | 02/12/20 | 5 mg | | | | mg 5 mg, Oral, 4 TIMES DAILY, | | 16 1:14 | | | | | First dose on Sun02/09/16 at 1300 | | PM PDT | | | | + +-------+ +------+---+---+ +-------+ +------+---+---+ | Given | 02/12/20 | 5 mg | | | | | 16 9:33 | | | | | | AM PDT | | | | +-------+ +------+---+---+ | Given | 02/11/20 | 5 mg | | | | | 16 8:36 | | | | | | PM PDT | | | | +-------+ +------+---+---+ +---+---+ | | | +---+---+ + +-------+ +-------+---+---+ | rivaroxaban (XARELTO) tablet 10 | Given | 02/11/20 | 10 mg | | | | mg 10 mg, Oral, DAILY WITH | | 16 4:17 | | | | | DINNER, First dose on Sun02/10/16 | | PM PDT | | | | | at 1700, For 30 days, | | | | | | | Post-op/Phase II | | | | | | + +-------+ +-------+---+---+ +-------+ +-------+---+---+ | Given | 02/10/20 | 10 mg | | | | | 16 6:17 | | | | | | PM PDT | | | | +-------+ +-------+---+---+ +---+---+ | | | +---+---+ documented in this encounter
--- OUTSIDE RECORDS SUMMARY | ~2019-07-02 | XMS | Encounter Summary ---
Demographics + + + | Address | [address] | | | [place] [address] | + + + | Home Phone | | + + + | Preferred Language | Unknown | + + + | Marital Status | | + + + | Uatsdin Affiliation | 1076 | + + + | Race | Unknown | + + + | Ethnic Group | Unknown | + + + Author + + + | Author | [facility] | | | and Primo | + + + | Organization | [facility] | | [...] [place], [place] | | | | | [address] | | + + + + + | Dalton Fernandez | ECON | Unknown | | + + + + + | Juana Fernandez | ECON | Unknown | | + + + + + Care Team Providers + +------+ + | Care Telecasting Technician Name | Role | Phone | + +------+ + | Dutch Rodriguez DO | PCP | | + +------+ + Encounter Details +--------+ + + + + | Date | Type | Department | Care Team | Description | +--------+ + + + + | 11/28/ | Orders Only | [facility] [place] | Ramin Bess | Closed left | | 2016 | | ORTHOPEDIC SURGERY | MD Swathi Gonzalez [facility] | subtrochanteric | | | | [address] [facility] | [place] | femur fracture, | | | | [place] | [id number] | initial encounter | | | | [address] | | ([facility]) (Primary Dx) | | | | [phone] | | | +--------+ + + + [...] [place] | | | | | | [address] | | | | | | | | +--------+---------+ + + + documented as of this encounter Results XR Femur Left 2+Vw (11/28/2016 4:29 PM PDT) + + | Specimen | + + | | + + + + + | Narrative | Performed At | + + + | EXAM:XR FEMUR LEFT 2+VW CLINICAL HISTORY: [facility] | [facility] | | [facility] FEMORAL COMPARISON: Outside study dated October 22, 2016. | [facility] | | Intraoperative images [...] dated October 22, 2016. Intraoperative images October 23 | | 2017. | | | | FINDINGS: 4 views. [...] + + | Performing | Address | City/State[facility] | Phone Number | | Organization | | | | + + + + + | [facility] | [address] | [place] | [phone] | | [facility] | | [id number] | | | - IMAGING | | | | + + + + + documented in this encounter Visit Diagnoses + + | Diagnosis | + + | Closed left subtrochanteric femur fracture, initial encounter (HCC) - Primary | + + documented in this encounter"
--- OUTSIDE RECORDS SUMMARY | ~2019-07-02 | XMS | Encounter Summary ---
Demographics + + + | Address | [address] | | | [place] [address] | + + + | Home Phone | | + + + | Preferred Language | Unknown | + + + | Marital Status | | + + + | Quaker Affiliation | 1076 | + + + | Race | Unknown | + + + | Ethnic Group | Unknown | + + + Author + + + | Author | [facility] | | | and Primo | + + + | Organization | [facility] | [...] [place], [place] | | | | | [address] | | + + + + + | Dalton Fernandez | ECON | Unknown | | + + + + + | Juana Fernandez | ECON | Unknown | | + + + + + Care Team Providers + +------+ + | Care Order Entry Specialist Name | Role | Phone | + +------+ + | Dutch Rodriguez DO | PCP | | + +------+ + Reason for Visit + + + | Reason | Comments | + + + | Pre-op Exam | left tka dos 02/09/16 | + + + Encounter Details +--------+---------+ + + + | Date | Type | Department | Care Team | Description | +--------+---------+ + + + | 02/02/ | Office | [facility] | Ramin Bess | Pre-operative | | 2015 | Visit | ORTHOPEDIC SURGERY | MD Lisa [address] [place] [address] | laboratory | | | | [address] [place] [address] | [place] | examination (Primary | | | | [place] | [id number] | Dx); Ambikauria; | | | | [address] | | Primary | | | | [phone] | | osteoarthritis of | | | | | | left knee | +--------+---------+ + + + Social History [...] + + + | Blood Pressure | 112/68 | 02/03/2016 9:47 AM | | | | | PDT | | + + + + + | Pulse | 89 | 02/03/2016 9:47 AM | | | | | PDT | | + + + + + | Temperature | 37.1 C (98.7 F) | 02/03/2016 9:47 AM | | | | | PDT | | + + + + + | Respiratory Rate | 24 | 02/03/2016 9:47 AM | | | | | PDT | | + + + + + | Oxygen Saturation | 97% | 02/03/2016 9:47 AM | | | | | PDT | | + + + + + | Inhaled Oxygen | - | - | | | Concentration | | | | + + + + + | Weight | 70.3 kg (155 lb) | 02/03/2016 9:47 AM | | | | | PDT | | + + + + + | Height | 162.6 cm (5' 4") | 02/03/2016 9:47 AM | | | | | PDT | | + + + + + | Body Mass Index | 26.61 | 02/03/2016 9:47 AM | | | | | PDT [...] encounter Progress Notes Ramin Bess MD - 02/03/2016 9:53 AM PDTFormatting of this note might be differen t from the original. History of present illness: Ana is a 65 y.o. female who presents to our clinic today for a preop examination. Ana is scheduled for a left total knee arthroplasty on 02/09/16. She h as a long history of bilateral knee pain with decreasing physical capacity and has xray evid ence of advanced osteoarthrosis of both knees. She has already undergone a right total kne e arthroplasty on 05/26/15 with great results and now wishes to have similar surgery on her left knee which is felt to be appropriate. Past Medical History Diagnosis Date Gastric reflux Migraine Environmental allergies Anemia Arthritis Cataract Osteoporosis Past Surgical History Procedure Laterality Date Rotator cuff repair Right December 25, 2013 Knee cartilage surgery right Lumbar laminectomy 06/17/2014 L4-5, L5-S1 TLIF, LEFT SIDED APPROACH; Laterality: Left; Surgeon: Douglas Nuñez MD; Loc ation: [facility] MAIN OR Colonoscopy Upper gastrointestinal endoscopy Eye surgery Total knee arthroplasty Right 05/26/2015 Procedure: Right Total Knee Arthroplasty; Surgeon: Ramin Bess MD; Location: [facility] MAIN OR Allergies Allergen Reactions Onion Shortness Of Breath and Other (See Comments) Swelling mouth, migraines, and 3 days of knotting stomach Codeine Other (See Comments) Cotton Mouth Food Nausea Only Any kind of pepper Penicillins Rash Current Outpatient Prescriptions on File Prior to Visit Medication Sig Dispense Refill b complex vitamins tablet Take 1 tablet by mouth Daily. Liquid B Complex Calcium Carbonate (CALCIUM 600 PO) Take by mouth in the morning and in the evening. Carboxymethylcellulose Sodium (REFRESH PLUS OP) Apply to eye as needed. cefadroxil (DURICEF) 500 mg capsule One tablet in morning and one in evening the day be fore dental procedure. 4 capsule 0 cholecalciferol (VITAMIN D-3) 2000 UNITS TABS Take 1,000 Units by mouth Daily. clindamycin (CLEOCIN) 300 MG capsule Take 2 capsule 1 hour prior to dental procedure. 4 capsule 0 CRANBERRY FRUIT PO Take 200 mg by mouth in the morning and in the evening. cyclobenzaprine (FLEXERIL) 10 mg tablet Take 1 tablet by mouth every 8 hours as needed for Muscle spasms (FURTHER REFILLS NEED TO COME FROM PCP). 90 tablet 0 CycloSPORINE (RESTASIS OP) Apply 1 drop to eye nightly. fish oil 1,000 mg capsule Take 1,000 mg by mouth 2 times daily. HYDROcodone-acetaminophen (NORCO) 5-325 mg per tablet 1 tablet every 6 hours as needed. hydroxypropyl cellulose (LACRISERT) 5 MG INST 5 mg Daily. ibuprofen (ADVIL,MOTRIN) 800 MG tablet 800 mg every 8 hours as needed for Pain. IRON PO Take by mouth in the [...] capsule by mouth daily (with breakfas t). RESTASIS 0.05 % ophthalmic emulsion No current facility-administered medications on file prior to visit. Family History Problem Relation Age of Onset Heart defect Father Lung cancer Mother COPD Mother Osteoporosis Mother Parkinsonism Father Asthma Brother COPD Brother Asthma Son Arthritis Maternal Grandmother Heart disease Maternal Grandfather History Social History Marital Status: Spouse Name: N/A Number of Children: N/A Years of Education: N/A Occupational History Not on file. Social History Main Topics Smoking status: Never Smoker Smokeless tobacco: Never Used Alcohol Use: Yes Comment: Occasionally - 1 drink per month Drug Use: No Sexual Activity: Yes Other Topics Concern Not on file Social History Narrative Review of Systems This has been reviewed. All other entries are negative except for those checked below. [place] Eyes: [] Double vision [x] Glasses/contacts [] Failing vision Ear/Nose/Throat: [] Frequent Colds [] Sinus Disease [] Nose obstruction [x] Sneezing Spells [] Change in taste [] Artificial teeth [] Ears ringing [] Ear pain [] Hearing loss [] Teeth problems [] Hoarseness [] Neck swelling [] Sore throat [] Congestion [] Nosebleeds [x] Nasal allergies Respiratory: [] Asthma/Wheezing [] Pneumonia [] Night sweats [] Shortness of breath [] Chronic cough [] Coughing up blood [] Exposure to tuberculosis Cardiovascular: [] Heart Problems [] Hypertension [] Heart murmur [] Palpitations [] Rheumatic fever [] Phlebitis [] Chest pain [] Ankle swelling [x] Leg cramps [] Raci ng heart [] Skipping beats [] Blood clots Gastrointestinal: [] Abdominal pain [] Heartburn [] Blood from rectum [] Colitis [] Gallbladder problems [] Troubl e swallowing [] Bloated stomach [] Change in stools [] Vomiting blood [] Nausea [] Hemorrhoids [] Jaundice [ ] Hepatitis [] Diarrhea [] Constipation [] Diverticulitis Urinary Tract: [] Painful urination [] Kidney Stones [] Any urine leakage [] Weak urine stream [x] Night urination [] Urine infections [] Bedwetting [] Blood in urine Skin: [] Skin rashes [] Itching/Burning [] Skin bruises easil y [] Artificial tanning [] Skin cancer [] Hair loss [] Changes in moles Musculoskeletal: [] Physical handicaps [x] Back or shoulder pain []Rheumatoid disease [x] Osteoarthritis [x] Joint pain [] Joint swelling []Gout [x] Leg cramps at night Neurological: [] Headaches [] Seizures [] Stroke/TIA [] Faintness [] Tremors [] Numbness [] Dizziness [] Changes in handwriting [] Memory loss [] Shooting pains Psychiatric: [] Depression [] Suicidal thoughts [] Sleep pattern changes [] Appetite changes [] Recent counseling [] Nervousness/anxiety [] Physical violence [] Marital problems Endocrine: [] Thyroid [] Diabetes Systemic: []Weight loss/gain (over 10 lbs) []Fever/chills []Fatigue [] Sleeping Difficulties [] Speech change [] Voice change Filed Vitals: 02/03/16 0947 BP: 112/68 Pulse: 89 Temp: 37.1 C (98.7 F) Resp: 24 PainSc: 0 - No pain Estimated body mass index is 26.59 kg/(m^2) as calculated from the following: Height as of this encounter: 1.626 m (5' 4"). Weight as of this encounter: 70.308 kg (155 lb). Physical examination:Patient is alert and oriented and in no acute distress. Inspection reveals: Skin is warm dry and intact with no gross deformity. Head: Oral pharnyx nonerythematous nonedematous no exudate noted Neck: Supple nontender without any lymphadenopathy. Heart: Regular rate and rhythm. Lungs: Clear to auscultation. Abdomen: Soft nontender no masses organomegaly. Cranial nerves 2-12 grossly intact. Musculoskeletal: The left knee is tender to palpation over the medial and lateral joint li patrice. Ligaments are stable and NV function is intact to both feet. Assessment: Advanced osteoarthrosis left knee. S/P successful right total knee arthropla sty. Plan: The patient is scheduled for a left total knee arthroplasty on 02/09/16. Therefore, th e planned procedure with its risks, possible complications, expected prognosis, and treatmen t alternatives was discussed with the patient. Risks and possible complications were listed but not limited to infection, nerve and vessel damage, bleeding, pain, scarring, stiffness, residual symptoms remaining after surgery, and the risk of anesthesia including . No guarantees were given or implied other than that of diligent effort. documented in th is encounter Plan of Treatment +--------+---------+ + + + | Date | Type | Specialty | Care Team | Description | +--------+---------+ + + + | 07/22/ | Office | Orthopedic Surgery | Ramin Bess | | | 2018 | Visit | | MD Swathi Gonzalez | | | | | | [place] | | | | | | [id number] | | | | | | | | +--------+---------+ + + + documented as of this encounter Procedures + +--------+ + + + | Procedure Name | Priori | Date/Time | Associated Diagnosis | Comments | | | ty | | | | + +--------+ + + + | CULTURE, MRSA | Routin | 02/03/2016 | Pre-operative | Results for this | | | e | 10:44 AM | laboratory | procedure are in the | | | | PDT | examination | results section. | + +--------+ + + + documented in this encounter Results Urinalysis with Microscopic with Culture if Indicated (02/03/2016 10:52 AM PDT) + + + + + + | Component | Value | Ref Range | Performed | Pathologist | | | | | At | Signature | + + + + + + | Color | Blue (A) | Light Yellow, | [facility] | [...] + + + | pH, Urine | 6.0 | 5.0 - 8.0 | [facility] | | | | | | [facility] | | | | | | [facility] | | | | | | [facility] - | | | | | | LABORATORY | | + + + + + + | Specific | 1.020 | 1.001 - 1.030 | [facility] | | | [place] | | | [facility] | | [...] n, Urine | | mg/dL, Negative | [facility] | | | | [...] [address] | [place] | [phone] | | [facility] | | [address] | | | - LABORATORY | | | | + + + + + Culture, MRSA (02/03/2016 10:44 AM PDT) + + + + + + | Component | Value | Ref Range | Performed | Pathologist | | | | | At | Signature | + + + + + + | Culture | Negative for MRSA by | | [facility] | | | | chromogenic agar method | | [facility] | | | | | | MEDICAL | | | | | | CENTER - | | | | | | LABORATORY | | + + + + + + + + | Specimen | + + | Respiratory - | | Specimen from | | internal nose | | (specimen) | + + + + + + + | Performing | Address | City/State/Zipcode | Phone Number | | Organization | | | | + + + + + | [facility] | [address] | [place] | [phone] | | [facility] | | [address] | | | - LABORATORY | | | | + + + + + documented in this encounter Visit Diagnoses + + | Diagnosis | + + | Pre-operative laboratory examination - Primary Pre-procedural laboratory examination | + + | Nocturia | + + | Primary osteoarthritis of left knee Primary localized osteoarthrosis, lower leg | + + documented in this encounter
--- OUTSIDE RECORDS SUMMARY | ~2019-07-02 | XMS | Encounter Summary ---
Demographics + + + | Address | [address] | | | [place] [address] | + + + | Home Phone [...] | Author | [facility] | | | and Primo | + + + | Organization | [facility] | | | and [...] [place], [place] | | | | | [address] | | + + + + + | Dalton Fernandez | ECON | Unknown | | + + + + + | Juana Fernandez | ECON | Unknown | | + + + + + Care Team Providers + +------+ + | Care Pattern Grader Supervisor Name | Role | Phone | [...] + + | 02/21/ | Office | [facility] | Zachery Soria | Status post total | | 2016 | Visit | ORTHOPEDIC SURGERY | [address] | left knee | | | | [address] [facility] | Josué Young | replacement (Primary | | | | [place] | [place] [address] | Dx) | | | | [address] | [phone] | | | | | [phone] | | | +--------+---------+ + + + [...] and o n an outpatient basis at [facility]. Pain has remained well-controlled [...] home and on an outpatient basis at [facility]. Continue with pain medications that were already prescribed. Follow-up in approximately 2 weeks for reeva luation and imaging study. B. Patient is advised that if they have any questions, comments or concerns to contact our office. Electronically signed by: Zachery Soria PA-C 02/22/2016 13:24 This note was dictated using the [employer] recognition system. Minor errors in grammar may have occurred. documented in t his encounter Plan of Treatment +--------+---------+ + + + | Date | Type | Specialty | Care Team | Description | +--------+---------+ + + + | 07/22/ | Office | Orthopedic Surgery | Ramin Bess | | | 2019 | Visit | | MD Lisa [address] [place] [address] | | | | | | [place] [...]
--- OUTSIDE RECORDS SUMMARY | ~2019-07-02 | XMS | Encounter Summary ---
Demographics + + + | Address | [address] | | | [place] [address] | + + + | Home Phone [...] Author | [facility] | | | and Primo | + + + | Organization | [facility] | | [...] [place], [place] | | | | | [address] | | + + + + + | Dalton Fernandez | ECON | Unknown | | + + + + + | Juana Fernandez | ECON | Unknown | | + + + + + Care Team Providers + +------+ + | Care Litigation Counsel Name | Role | Phone | + [...] + + | 04/17/ | Telephone | [facility] | Zachery Soria | Medication Question | | 2017 | | ORTHOPEDIC SURGERY | [address] | | | | | [address] [facility] | [facility] | | | | | [place] | [place] [address] | | | | | [address] | [phone] | | | | | [phone] | | | +--------+ + + + [...]
--- OUTSIDE RECORDS SUMMARY | ~2019-07-02 | XMS | Encounter Summary ---
Demographics + + + | Address | [address] | | | [place] [address] | + + + | Home Phone [...] + | Author | [facility] | | | and Primo | + + + | Organization | [facility] [...] [place], [place] | | | | | [address] | | + + + + + | Dalton Fernandez | ECON | Unknown | | + + + + + | Juana Fernandez | ECON | Unknown | | + + + + + Care Team Providers + +------+ + | Care Feather Edger Name | Role | Phone | + [...] Description | +--------+---------+ + + + | 03/16/ | Office | [facility] | Zachery Soria | Status post total | | 2016 | Visit | ORTHOPEDIC SURGERY | [address] | knee replacement, | | | | [address] [facility] | Fabian Young | left (Primary Dx) | | | | [place] | [place] [address] | | | | | [address] | [phone] | | | | | [phone] | | | +--------+---------+ + + + [...] Temperature | 37 C (98.6 F) | 03/16/2016 3:14 PM | | | | | PDT [...] Weight | 70.3 kg (155 lb) | 03/16/2016 3:14 PM | | | | | PDT | | + + + + + | Height | 162.6 cm (5' 4") | 03/16/2016 3:14 PM | | | | | PDT | | + + + + + | Body Mass Index | 26.61 | 03/16/2016 3:14 PM | | | | | PDT [...] encounter Progress Notes Zachery Soria PA-C - 03/16/2016 7:38 PM PDTFormatting of this note might be differe nt from the original. Name:Ana Fernandez Todays Date: 03/16/2016 Age: 65 y.o. PCP: Dutch Rodriguez DO Chief Complaint Patient presents with Post Op left total knee arthroplasty DOS 02/09/16 SUBJECTIVE: Patient returns today for second post operative visit following left total knee arthroplast y on 02/09/16. Pain has remained well controled. She has continued w/ PT at home and on an ou tpt basis. Feels that range of motion has continued to improve. Current level of pain rate d at 0 out of 10. OBJECTIVE: Imaging/Studies: Xr Knee Left 1 - 2 Vw 03/16/2016 EXAM: XR KNEE LEFT 1 - 2 VW dated 03/16/2016 2:37 PM HISTORY:KNEE PAIN COMPARI SON: 02/09/2016 FINDINGS:Frontal and lateral views of the left knee. Total knee arthroplasty changes are in place. No evidence for an interval complication. Resolved operative change s in the soft tissues. Residual soft tissue thickening as expected. IMPRESSION - No radio graphic evidence for an interval complication. Dictated and Signed by: Cecilio Weir MD Electronically signed: 03/16/2016 3:49 PM Filed Vitals: 03/16/16 1514 Temp: 37 C (98.6 F) TempSrc: Temporal Height: 1.626 m (5' 4") Weight: 70.308 kg (155 lb) ASSESSMENT/PLAN: 1.Left total knee arthroplasty, status post op. AKaty Fernandez is recovering remarkably well from left total knee arthroplasty that was perf ormed on 02/09/16. Pain remains minimal and is well controlled. She continues with PT at [facility] and on an out patient basis. Recommended today that she continue w/ PT at the left knee. Continue to be full wt bearing. Follow up in ~ 4 wks for reevaluation. B. Patient is advised that if they have any questions, comments or concerns to contact our office. Electronically signed by: Zachery Soria PA-C 03/16/2016 19:38 This note was dictated using the [employer] voice recognition system. Minor errors in grammar may have occurred. Zachery Odonnell PA-C - 03/16/2016 7:38 PM PDTFormatting of this note might be different from the orig inal. Name:Ana Fernandez Todays Date: 03/16/2016 Age: 65 y.o. PCP: Dutch Rodriguez DO Chief Complaint Patient presents with Post Op left total knee arthroplasty DOS 02/09/16 SUBJECTIVE: Patient returns today for second postoperative visit following a left total knee arthroplas ty that was performed on 02/09/16. She continues with pain medication as necessary at home an d also before physical therapy on an outpatient basis at [facility]. Visit range of motion continues to improve. In place with assistance of a cane. Current level of pain rated at 0 out of 10 at rest. OBJECTIVE: Examination today reveals the incision site is healing well and appropriate. No erythema, induration, swelling or signs of infection are appreciable. No open wound or drainage is ob served at the incision site. Skin is warm and dry and she is neurovascularly intact. Range of motion continues to notice significant improvements. Approximately 0 118 degrees toda y Imaging/Studies: Xr Knee Left 1 - 2 Vw 03/16/2016 EXAM: XR KNEE LEFT 1 - 2 VW dated 03/16/2016 2:37 PM HISTORY:KNEE PAIN COMPARI SON: 02/09/2016 FINDINGS:Frontal and lateral views of the left knee. Total knee arthroplasty changes are in place. No evidence for an interval complication. Resolved operative change s in the soft tissues. Residual soft tissue thickening as expected. IMPRESSION - No radio graphic evidence for an interval complication. Dictated and Signed by: Cecilio Weir MD Electronically signed: 03/16/2016 3:49 PM Filed Vitals: 03/16/16 1514 Temp: 37 C (98.6 F) TempSrc: Temporal Height: 1.626 m (5' 4") Weight: 70.308 kg (155 lb) ASSESSMENT/PLAN: 1.Left total knee arthroplasty, status post op. A. Mrs Fernandez is recovering remarkably well from left total knee arthroplasty that was perf ormed on 02/09/16. Pain remains minimal and is well controlled. She continues with PT at [facility] and on an out patient basis. Recommended today that she continue w/ PT at the left knee. Continue to be full wt bearing. Follow up in ~ 4 wks for reevaluation. B. Patient is advised that if they have any questions, comments or concerns to contact our office. Electronically signed by: Zachery Soria PA-C 03/16/2016 19:38 This note was dictated using the [employer] voice recognition system. Minor errors in grammar may have occurred. documented in t his encounter Plan of Treatment +--------+---------+ + + + | Date | Type | Specialty | Care Team | Description | +--------+---------+ + + + | 07/22/ | Office | Orthopedic Surgery | Ramin Bess | | | 2018 | Visit | | MD Lisa [facility] [place] | | | | | | [place] | | | | | | [id number] | | | | | | | | +--------+---------+ + + + documented as of this encounter Visit Diagnoses + + | Diagnosis | + + | Status post total knee replacement, left - Primary | + + documented in this encounter
--- OUTSIDE RECORDS SUMMARY | ~2019-07-02 | XMS | Encounter Summary ---
Demographics + + + | Address | [address] | | | [place] [address] | + + + | Home Phone | | + + + | Preferred Language | Unknown | + + + | Marital Status | | + + + | Jain Affiliation | 1076 | + + + | Race | Unknown | + + + | Ethnic Group | Unknown | + + + Author + + + | Author | [facility] | | | and Primo | + + + | Organization | [facility] | | | [...] [place], [place] | | | | | [address] | | + + + + + | Dalton Fernandez | ECON | Unknown | | + + + + + | Juana Fernandez | ECON | Unknown | | + + + + + Care Team Providers + +------+ + | Care Public Relations Name | Role | Phone | + [...] + + | 09/03/ | Telephone | [facility] | Ramin Bess | New Medication | | 2017 | | ORTHOPEDIC SURGERY | MD Lisa [address] [facility] | Request | | | | [address] [facility] | [place] | | | | | [place] | [address] | | | | | [address] | | | | | | [phone] | | | +--------+ + + + [...] [place] | | | | | | [id number] | | | | | | | | +--------+---------+ + + + documented as of this encounter Visit Diagnoses Not on filedocumented in this encounter"
--- OUTSIDE RECORDS SUMMARY | ~2019-07-02 | XMS | Encounter Summary ---
Demographics + + + | Address | [address] | | | [place] [address] | + + + | Home Phone [...] Author | [facility] | | | and Primo | + + + | Organization | [facility] | | | and [place] [...] [place], [place] | | | | | [address] | | + + + + + | Dalton Fernandez | ECON | Unknown | | + + + + + | Juana Fernandez | ECON | Unknown | | + + + + + Care Team Providers + +------+ + | Care Repairing Calibrator Name | Role | Phone | + [...] | | | | | | | AL ARTHDSIS | | | | | | [...] + + | 06/17/ | Hospital | [facility] | Douglas Nuñez MD | Acquired | | 2013 | Encounter | MED CTR XRAY [address] | [address] | spondylolisthesis | | | | [place] | [place] [address] | (Primary Dx) | | | | [place] [address] | [phone] | | | | | [phone] | | | +--------+ + + + [...] [place] | | | | | | [address] | | | | | | | [...]
--- OUTSIDE RECORDS SUMMARY | ~2019-07-02 | XMS | Encounter Summary ---
Demographics + + + | Address | [address] | | | [place] [address] | + + + | Home Phone [...] | Author | [facility] | | | and Primo | + + + | Organization | [facility] | | | and [...] [place], [place] | | | | | [address] | | + + + + + | Dalton Fernandez | ECON | Unknown | | + + + + + | Juana Fernandez | ECON | Unknown | | + + + + + Care Team Providers + +------+ + | Care Concrete Smoother Name | Role | Phone | + [...] | Specialty | Physical | Diagnoses | Shahriar, | OP ST | | | Services | Therapy | Primary | Ramin Gonzalez, | YEIMI | | | Required | | localized | [address] | [facility] | | | | | osteoarthros | [address] | [address] | | | | | is, lower | [place], | AVE | | | | | leg, right | [place] [address] | [place], [place] | | | | | S/P | Phone: | [phone] | | | | | orthopedic | [phone] | Phone: | | | | | surgery, | Fax: | [phone] | | | | | follow-up | [phone] | Fax: | | | | | exam | | [phone] | +--------+ + + + + + Reason for Visit +--------+ + | Reason | Comments | +--------+ + | Other | | +--------+ + Encounter Details +--------+ + + + + | Date | Type | Department | Care Team | Description | +--------+ + + + + | 06/01/ | Telephone | [facility] | Ramin Bess | Other | | 2014 | | ORTHOPEDIC SURGERY | MD Lisa [address] [facility] | | | | | [address] [facility] | [place], [place] | | | | | [place], [place] | [address] | | | | | [address] | | | | | | [phone] | | | +--------+ + + + [...] [place] | | | | | | [address] | | | | | | | | +--------+---------+ + + + + + +--------+ + + | Name | Type | Priori | Associated Diagnoses | Order Schedule | | | | ty | | | + + +--------+ + + | * [facility] | Outpatient | Routin | Primary localized | Ordered: 06/01/2015 | | Therapy - AMB | Referral | e | osteoarthrosis, | | | Referral | | | lower leg, right | | | | | | S/P orthopedic | | | | | | surgery, follow-up | | | | | | exam | | + + +--------+ + + documented as of this encounter Visit Diagnoses + + | Diagnosis | + + | Primary localized osteoarthrosis, lower leg, right - Primary | + + | S/P orthopedic surgery, follow-up exam Follow-up examination, following other surgery | + + documented in this encounter"
--- OUTSIDE RECORDS SUMMARY | ~2019-07-02 | XMS | Encounter Summary ---
Demographics + + + | Address | [address] | | | [place] [address] | + + + | Home Phone [...] | [facility] | | | and Primo | + + + | Organization | [facility] | | | and [place] [...] [place], [place] | | | | | [address] | | + + + + + | Dalton Fernandez | ECON | Unknown | | + + + + + | Juana Fernandez | ECON | Unknown | | + + + + + Care Team Providers + +------+ + | Care Insurance Case Manager Name | Role | Phone | [...] | | | leg, right | [place] [address] | [place], [place] | | | | | S/P | Phone: | [phone] | | | | | orthopedic | [phone] | Phone: | | | | | surgery, | Fax: | [phone] | | | | | follow-up | [phone] | Fax: | | | | | exam | | [phone] | +--------+ + + + + + Reason for Visit +--------+ + | Reason | Comments | +--------+ + | Other | | +--------+ + Encounter Details +--------+ + + + + | Date | Type | Department | Care Team | Description | +--------+ + + + + | 06/01/ | Telephone | [facility] | Ramin Bess | Other | | 2014 | | ORTHOPEDIC SURGERY | MD Lisa [address] [facility] | | | | | [address] [facility] | [place], [place] | | | | | [place], [place] | [address] | | | | | [address] | | | | | | [phone] | | | +--------+ + + + [...] [place] | | | | | | [address] | | | | | | | [...]
--- OUTSIDE RECORDS SUMMARY | ~2019-07-02 | XMS | Encounter Summary ---
Demographics + + + | Address | [address] | | | [place] [address] | + + + | Home Phone [...] | Author | [facility] | | | and Primo | + + + | Organization | [facility] | | [...] [place], [place] | | | | | [address] | | + + + + + | Dalton Fernandez | ECON | Unknown | | + + + + + | Juana Fernandez | ECON | Unknown | | + + + + + Care Team Providers + +------+ + | Care Product Marketing Manager Name | Role | Phone | [...] | +--------+ + + + + | 10/23/ | Anesthesia | [facility] | Gloria Dumont MD | | | 2017 | Event | [facility] | [address] | | | | | [address] | [place], [place] | | | | | [place], [place] | [address] | | | | | [address] | | | | | | [phone] | Randy Machado | | | | | | MD Carly [address] | | | | | | [address] [place] | | | | | | [place] [address] | | | | | | [phone] | | | | | | | | +--------+ + + + + Anesthesia Record + + + + + | Procedure Name | Responsible | Anesthesia Start | Anesthesia Stop Time | | | Anesthesiologist | Time | | + + + + + | ORIF RETROGRADE IM | Gloria Dumont MD | 10/23/16 1446 | 10/23/16 1644 | | [facility]ODD[facility] FEMORAL | | | | | (Left Femur) | | | | + + + + + +----+---+ + + | Da | T | Event | Comment | | te | i | | | | | m | | | | | e | | | +----+---+ + + | 03 | 1 | | | | /2 | 4 | | | | 0/ | 3 | | | | 20 | 3 | | | | 17 | | | | +----+---+ + + | | 1 | Block Start | | | | 4 | | | | | 3 | | | | | 3 | | | +----+---+ + + | | 1 | An Start | | | | 4 | Data | | | | 3 | | | | | 3 | | | +----+---+ + + | | 1 | an stop | | | | 4 | data | | | | 4 | | | | | 0 | | | +----+---+ + + | | 1 | AN Block | | | | 4 | End | | | | 4 | | | | | 0 | | | +----+---+ + + | | 1 | An Checkout | Pre-use anesthesia machine/equipment checkout. | | | 4 | | | | | 4 | | | | | 6 | | | +----+---+ + + | | 1 | An Start | Reassessment prior to anesthesia induction/procedure. | | | 4 | | | | | 4 | | | | | 6 | | | +----+---+ + + | | 1 | Antibiotic | | | | 4 | Given | | | | 4 | | | | | 6 | | | +----+---+ + + | | 1 | Preoxygenat | | | | 4 | ed | | | | 4 | | | | | 8 | | | +----+---+ + + | | 1 | An | | | | 4 | Induction | | | | 4 | | | | | 9 | | | +----+---+ + + | | 1 | An | | | | 4 | Intubation | | | | 5 | | | | | 1 | | | +----+---+ + + | | 1 | [place] | | | | 5 | 43-degrees | | | | 0 | | | | | 4 | | | +----+---+ + + | | 1 | First | | | | 5 | Inc/Proc St | | | | 0 | | | | | 7 | | | +----+---+ + + | | 1 | [place] off | | | | 6 | | | | | 2 | | | | | 7 | | | +----+---+ + + | | 1 | Breathing | | | | 6 | Spontaneous | | | | 2 | ly | | | | 7 | | | +----+---+ + + | | 1 | Extubated | | | | 6 | Deep | | | | 3 | | | | | 8 | | | +----+---+ + + | | 1 | an stop | | | | 6 | data | | | | 3 | | | | | 8 | | | +----+---+ + + | | 1 | An Stop | Patient handed off to recovery nurse. | | | 4 | | | | | 4 | | | +----+---+ + + +------+ | Meds | +------+ + + + | Name | Total | + + + | fentaNYL injection (2 mL) | 100 mcg | + + + | lidocaine 2% | 20 mg | + + + | lidocaine 2% | 7 mL | + + + | propofol (DIPRIVAN) injection | 100 mg | | (bolus) (20 mL) | | + + + | ondansetron | 4 mg | + + + | dexamethasone | 10 mg | + + + | phenylephrine (Injection) | 100 mcg | + + + | tranexamic acid | 2,000 mg | + + + | ceFAZolin in saline (ANCEF) IVPB | 2 g | | 2 g | | + + + | ropivacaine 0.5% | 5 mL | + + + | lactated ringers (LR) infusion | 1,200 mL | + + + | NS (Infusion) | 300 mL | + + + + + [...] Read | 05/26/15; 813; Right:; leg; | 05/26/15813 by | 10/29/18 1342 by | | only - | 10/29/18 (Completed/Removed by | Jack Pantoja RN | User Epic | | | Utility); 1342 (Completed/Removed | | | | Incisi | by Utility) | | | | on | | | | +--------+ + + + | Periph | 10/22/16; yes; Right; Posterior | 10/22/16 0000 by | 10/25/162127 by | | eral | (dorsal); Forearm; | Nerissa Zuñiga RN | Jeimy Ramirez RN | | IV | [id number] catheter system; | | | | | 20 gauge; 10/25/16; 2127 | | | +--------+ + + + | Urethr | 10/22/16; 2146; required for | 10/22/162146 by | 10/26/16 100 by | | al | prolonged immobilization due to | Jeimy Ramirez RN | Dinah Moser RN | | Cathet | unstable fractures; All elements; | | | | er | All elements; All elements; | | | | | indwelling single lumen catheter; | | | | | 100% silicone; 16; 1; 10; 10; | | | | | none; drainage bag to dependent | | | | | drainage; short term use; | | | | | 10/26/16; 1006 | | | +--------+ + + + | Wound | 10/22/16; 2255; Left; dorsal; | 10/22/162255 by | 11/01/16 1300 by | | | foot; abrasion; 11/01/16; 1300 | Jeimy Ramirez RN | Dinah Moser RN | +--------+ + + + | Brace/ | 10/22/16; 2309; left knee | 10/22/16 2309 by | 11/01/16 1300 by | | Orthot | immobilizer; expected removal | Jeimy Ramirez RN | Dinah Moser RN | | ic/Ort | post discharge; 11/01/16; 1300 | | | | hosis | | | | +--------+ + + + | Airway | Placement Date: 10/23/16; | 10/23/16 1451 by | 10/23/16 1638 by | | | Placement Time: 1451; Airway | Gloria Duomnt MD | Gloria Dumont MD | | | Type: oral, cuffed, laryngeal | | | | | mask, non-disposable; Size: 3; | | | | | Trauma: none; Placement Check: | | | | | exhaled CO2 detection device; | | | | | Removal Date: 10/23/16; Removal | | | | | Time: 1638 | | | +--------+ + + + | Periph | 10/23/16; 1454; Left; Forearm; | 10/23/16 1454 by | 10/26/16 2319 by | | eral | [id number] catheter system; | Gloria Dumont MD | Jeimy Ramirez RN | | IV | 18 gauge; 0; sterile tape strips, | | | | | secured with; 10/26/16; 2318 | | | | | (found out) | | | +--------+ + + + | Read | 10/23/16; 1522; Left; knee; | 10/23/16 1522 by | 11/01/16 1300 by | | only - | expected removal post discharge; | Vy Myles RN | Dinah Moser RN | | | 11/01/16; 1300 | | | | Incisi | | [...] | Visit | | MD Swathi Gonzalez [facility] | | | | | | [place] | | | | | | [address] | | | | | | | | +--------+---------+ + + + documented as of this encounter Procedures + +--------+ + + + | Procedure Name | Priori | Date/Time | Associated Diagnosis | Comments | | | ty | | | | + +--------+ + + + | ANE NERVE BLOCK | Routin | 10/23/2016 | | Results for this | | CATHETER NOTE | e | 3:23 PM | | procedure are in the | | | | PDT | | results section. | + +--------+ + + + documented in this encounter Results Anesthesia Perineural Note (10/23/2016 3:23 PM PDT) + + + | Narrative | Performed At | + + + | Gloria Dumont MD 10/23/2016 15:23 Perineural Procedure Note | | | 10/23/2016 14:33 Nerve block: femoral Laterality: left Continuous | | | block with catheter: No Indication: postoperative analgesia | | | Preprocedure check: monitors applied, timeout performed, | | | risks/benefits discussed, procedure and rescue equipment checked, | | | patient identified, preevaluation including airway assessment | | | complete and consent obtained Patient position: supine Preparation: | | | chlorhexidine/isopropyl alcohol, 1% lidocaine infiltration Local | | | anesthetic infiltration volume in ml: 5 mL Technique: ultrasound | | | Radiology image stored in patient's chart: ultrasound Needle: | | | stimulating Needle size: 21 g Needle length: 4 in Medication | | | administered through: catheter and incremental injection Negative | | | findings: no blood aspirated, no CSF, no paresthesia and no air | | | aspirated Total volume of local anesthetic solution administered: 12 | | | Attempts: 1 Ease of procedure: easy Comments: The patient was | | | met in the preoperative area, chart reviewed, pt interviewed and | | | examined. The risks, benefits and options of anesthesia were | | | explained and questions answered. The pt was concerned that the | | | nerve block might last too long, as prior nerve blocks had lasted | | | more than a day and she found that frustrating. In order to hasten | | | the resolution of the nerve block, I reduced the amount of | | | ropivacaine from 10 ml to 5 and increased the amount of lidocaine. | | | I warned the patient that this nerve block might not work at all | | | or may wear off quite quickly. She stated that she understood this | | | and wanted to proceed with general anesthesia and a left femoral | | | nerve block for postoperative analgesia. The left leg was prepped | | | with chloroprep and monitors were placed. Then ultrasound was used | | | to identify the left femoral nerve and 1 percent lidocaine was | | | infiltrated sq. With the nerve stimulating needle tip in constant | | | view, 5 ml of .5 percent ropivacaine with 7 ml of 2 percent | | | lidocaine was injected maryuri-neurally with frequent negative | | | aspirations. The patient tolerated the procedure well without | | | apparent complication. Please see anesthesia record or | | | flowsheet for vital sign documentation and see anesthesia record or | | | MAR for all medication documentation. Performing provider: | | | GLORIA DUMONT Body Artist: Inessa Lundberg Electronically | | | Signed by: Gloria Dumont MD ESi | | | date/time: 10/23/2016 15:15 | | + + + documented in this encounter Visit Diagnoses Not on filedocumented in this encounter Administered Medications + +--------+ +------+------+------+ | Medication Order | MAR | Action | Dose | Rate | Site | | | Action | Date | | | | + +--------+ +------+------+------+ | ceFAZolin in saline (ANCEF) | Given | 10/24/19 | 2 g | | | | IVPB 2 g 2 g, Intravenous, | | 17 2:32 | | | | | Administer over 30 Minutes, Prior | | PM PDT | | | | | to Incision, Starting Sun | | | | | | | 10/23/16 at 1406, For 1 dose, Give | | | | | | | within one hour prior to | | | | | | | incision. Keep in refrigerator., | | | | | | | Pre-op, Indications: Surgical | | | | | | | Prophylaxis | | | | | | + +--------+ +------+------+------+ +---+---+ | | | +---+---+ + +-------+ +-------+---+---+ | dexamethasone (DECADRON) 10 | Given | 10/24/19 | 10 mg | | | | mg/mL injection Intravenous, | | 17 3:25 | | | | | PRN, Starting Sun10/23/16 at | | PM PDT | | | | | 1525, Anesthesia Intra-op | | | | | | + +-------+ +-------+---+---+ +---+---+ | | | +---+---+ + +-------+ + +---+---+ | fentaNYL (PF) injection | Given | 10/24/19 | [id number] | | | | Intravenous, PRN, Pain, Starting | | 17 3:45 | 1 mcg | | | | 10/23/16 at 1502, Anesthesia | | PM PDT | | | | | Intra-op | | | | | | + +-------+ + +---+---+ +-------+ +--------+---+---+ | Given | 10/24/19 | 50 mcg | | | | | 17 3:44 | | | | | | PM PDT | | | | +-------+ +--------+---+---+ | Given | 10/24/19 | 50 mcg | | | | | 17 3:02 | | | | | | PM [...] lidocaine (PF) 2% injection | Given | 10/24/19 | 20 mg | | | | Intravenous, PRN, Starting Mon | | 17 2:49 | | | | | 10/23/16 at 1449, Anesthesia | | PM PDT | | | | | Intra-op | | | | | | + +-------+ +-------+---+---+ +---+---+ | | | +---+---+ + +-------+ +-------+---+---+ | lidocaine (PF) 2% injection | Given | 10/24/19 | 7 mLs | | | | PRN, Starting Sun10/23/16 at | | 17 2:39 | | | | | 1439, Anesthesia Intra-op | | PM PDT | | | | + +-------+ +-------+---+---+ +---+---+ | | | +---+---+ + +-------+ +------+---+---+ | ondansetron (ZOFRAN) injection | Given | 10/24/19 | 4 mg | | | | Intravenous, PRN, Nausea, | | 17 3:25 | | | | | Vomiting, Starting Sun10/23/16 at | | PM PDT | | | | | 1525, Anesthesia Intra-op | | | | | | + +-------+ +------+---+---+ +---+---+ | | | +---+---+ + +-------+ +---------+---+---+ | phenylephrine (GENESIS-SYNEPHRINE) | Given | 10/24/19 | 100 mcg | | | | 100 mcg/mL injection | | 17 3:02 | | | | | Intravenous, PRN, Starting Mon | | PM PDT | | | | | 10/23/16 at 1502, Anesthesia | | | | | | | Intra-op | | | | | | + +-------+ +---------+---+---+ +---+---+ | | | +---+---+ + +-------+ +--------+---+---+ | propofol (DIPRIVAN) injection | Given | 10/24/19 | 100 mg | | | | Intravenous, PRN, Starting Mon | | 17 2:49 | | | | | 10/23/16 at 1449, Anesthesia | | PM PDT | | | | | Intra-op | | | | | | + +-------+ +--------+---+---+ +---+---+ | | | +---+---+ + +-------+ +-------+---+---+ | ropivacaine (NAROPIN) 5 mg/mL | Given | 10/24/19 | 5 mLs | | | | (0.5%) injection PERINEURAL, | | 17 2:39 | | | | | PRN, Starting Sun10/23/16 at | | PM PDT | | | | | 1439, Anesthesia Intra-op | | | | | | + +-------+ +-------+---+---+ +---+---+ | | | +---+---+ + +---------+ +---+---+---+ | sodium chloride 0.9% (NS) | New Bag | 10/24/19 | | | | | infusion Intravenous, CONTINUOUS | | 17 3:20 | | | | | PRN, Starting Sun10/23/16 at | | PM PDT | | | | | 1520, Anesthesia Intra-op | | | | | | + +---------+ +---+---+---+ +---+---+ | | | +---+---+ + +-------+ + +---+---+ | tranexamic acid (CYKLOKAPRON) | Given | 10/24/19 | 1,000 mg | | | | injection Intravenous, | | 17 4:15 | | | | | Administer over 15 Minutes, PRN, | | PM PDT | | | | | Starting 10/23/16 at 1459, | | | | | | | Anesthesia Intra-op | | | | | | + +-------+ + +---+---+ +-------+ + +---+---+ | Given | 10/24/19 | 1,000 mg | | | | | 17 2:59 | | | | | | PM PDT | | | | +-------+ + +---+---+ +---+---+ | | | +---+---+ documented in this encounter"
--- OUTSIDE RECORDS SUMMARY | ~2019-07-02 | XMS | Encounter Summary ---
Demographics + + + | Address | [address] | | | [place] [address] | + + + | Home Phone | | + + + | Preferred Language | Unknown | + + + | Marital Status | | + + + | Sabianist Affiliation | 1076 | + + + | Race | Unknown | + + + | Ethnic Group | Unknown | + + + Author + + + | Author | [facility] | | | and Primo | + + + | Organization | [facility] | | | and [place] | [...] [place], [place] | | | | | [address] | | + + + + + | Dalton Fernandez | ECON | Unknown | | + + + + + | Juana Fernandez | ECON | Unknown | | + + + + + Care Team Providers + +------+ + | Care Air Hoist Operator Name | Role | Phone | [...] | | | | | [place], | [address] Phone: | | | | | | [place] | [phone] | | | | | | [address] | Fax: | | | | | | Phone: | [phone] | | | | | | [phone] | | | | | | | Fax: | | | | | | | [phone] | | + +--------+ + + + + Encounter Details +--------+---------+ + + + | Date | Type | Department | Care Team | Description | +--------+---------+ + + + | 06/17/ | Office | [facility] | Zachery Soria | Sprain of collateral | | 2019 | Visit | ORTHOPEDIC SURGERY | [address] | ligament of left | | | | [address] [facility] | [facility] | knee, initial | | | | [place], [place] | [place] [address] | encounter (Primary | | | | [address] | [phone] | Dx); Right knee | | | | [phone] | | pain, unspecified | | | [...] describes that she spent the day in [place] for a doctor appointment a nd was running several errands to include a high degree of ambulation. She describes that s he drove back to her home in [place] and had her leg and a very [...] program. This note was dictated using the [employer] voice recognition system. Minor errors in grammar [...] [place] | | | | | | [address] | | | | | | | [...]
--- OUTSIDE RECORDS SUMMARY | ~2019-07-02 | XMS | Encounter Summary ---
Demographics + + + | Address | [address] | | | [place] [address] | + + + | Home Phone | | + + + | Preferred Language | Unknown | + + + | Marital Status | | + + + | Sabianism Affiliation | 1076 | + + + | Race | Unknown | + + + | Ethnic Group | Unknown | + + + Author + + + | Author | [facility] | | | and Primo | + + + | Organization | [facility] | | | and [place] [...] [place], [place] | | | | | [address] | | + + + + + | Dalton Fernandez | ECON | Unknown | | + + + + + | Juana Fernandez | ECON | Unknown | | + + + + + Care Team Providers + +------+ + | Care Cell Tester Name | Role | Phone | + [...] Primary | Ramin Gonzalez, | [address] | | | | | localized | MD [address] | [place], | | | | | osteoarthros | [address] | [place] | | | | | is, lower | [place], | [address] | | | | | leg, right | [place] [address] | Phone: | | | | | Fitting and | Phone: | [phone] | | | | | adjustment | [phone] | Fax: | | | | | of | Fax: | [phone] | | | | | unspecified | [phone] | | | | | | prosthetic [...] + + | 02/22/ | Telephone | [facility] | Ramin Bess | Procedure | | 2014 | | ORTHOPEDIC SURGERY | MD Lisa [address] [facility] | | | | | [address] [facility] | [place], [place] | | | | | [place], [place] | [address] | | | | | [address] | | | | | | [phone] | | | +--------+ + + + [...] | Visit | | MD Swathi Gonzalez [facility] | | | | | | [place] | | | | | | [address] | | | | | | | | +--------+---------+ + + + documented as of this encounter Results MRI Knee Right wo Contrast (04/07/2015 11:55 AM PDT) + + | Specimen | + + | | + + + + + | Narrative | Performed At | + + + | LIMITED MRI RIGHT KNEE-PROSTHESIS PLANNIN04/07/2015 11:22 AM | [facility] | | CLINICAL HISTORY: KNEE PAIN PROSTHESIS FITTING IMPRESSION - | [facility] | | Limited MR images of the right knee are performed per prosthesis | [facility] | | fitting protocol. No diagnostic [...] ST. | [address] | [place] | [phone] | | [facility] | | [address] | | | - IMAGING | | | | + + + + + documented in this encounter Visit Diagnoses + + | Diagnosis | + + | Primary localized osteoarthrosis, lower leg, right - Primary | + + | Fitting and adjustment of unspecified prosthetic device | + + documented in this encounter"
--- OUTSIDE RECORDS SUMMARY | ~2019-07-02 | XMS | Encounter Summary ---
Demographics + + + | Address | [address] | | | [place] [address] | + + + | Home Phone [...] + | Author | [facility] | | | and Primo | + + + | Organization | [facility] | | | and [place] [...] [place], [place] | | | | | [address] | | + + + + + | Dalton Fernandez | ECON | Unknown | | + + + + + | Juana Fernandez | ECON | Unknown | | + + + + + Care Team Providers + +------+ + | Care Administrative Office Clerk Name | Role | Phone | + +------+ + | Dutch Rodriguez DO | PCP | | + +------+ + Encounter Details +--------+ + + + + | Date | Type | Department | Care Team | Description | +--------+ + + + + | 06/29/ | [facility] | [facility] | Ramin Bess | S/Griselda orthopedic | | 2015 | Encounter | MED CTR [facility]IAN XRAY | MD Lisa [address] [place] [address] | surgery, follow-up | | | | [address] [place] | [place] | exam | | | | [place] | [address] | | | | | [address] | | | | | | [phone] | | | +--------+ + + + [...] tablets by | 60 | 0 | 06/29/20 | | | HYDROcodone-acetamin | mouth every 6 hours | tablet | | 15 | 6 | | ophen (NORCO) 10-325 [...] 2018 | Visit | | MD Lisa [facility] FABIAN | | | | | | [place] | | | | | | [address] | | | | | | | | +--------+---------+ + + + documented as of this encounter Procedures + +--------+ + + + | Procedure Name | Priori | Date/Time | Associated Diagnosis | Comments | | | ty | | | | + +--------+ + + + | XR KNEE RIGHT 1 - 2 | Routin | 06/29/2015 | S/P orthopedic | Results for this | | VW | e | 10:06 AM | surgery, follow-up | procedure are in the | | | | PST | exam | results section. | + +--------+ + + + documented in this encounter Results XR Knee Right 1 - 2 Vw (06/29/2015 10:06 AM PST) + + | Specimen | + + | | + + + + + | Narrative | Performed At | + + + | XR KNEE RIGHT 1 - 2 VW 06/29/2015 10:06 AM HISTORY: post op | [facility] | | total. COMPARISON: Multiple priors. FINDINGS: There is | | | hardware for right knee arthroplasty that is intact with no evidence | | | for loosening. Bone mineralization is mildly decreased. A moderate | | | joint effusion is seen. There is moderate anterior soft tissue | | | swelling. IMPRESSION - Intact right knee arthroplasty. | | | Dictated and Signed by: Martin Pastor MD Electronically signed: | | | 06/29/2015 10:12 AM | | + + + + + | Procedure Note | + + | Silas, Rad Results In - 06/29/2015 10:15 AM PST XR KNEE RIGHT 1 - 2 VW 06/29/2015 10:06 | | AMHISTORY: post op total.COMPARISON: Multiple priors.FINDINGS:There is hardware for | | right knee arthroplasty that is intact with no evidencefor loosening. Bone | | mineralization is mildly decreased. A moderate jointeffusion is seen. There is moderate | | anterior soft tissue swelling.IMPRESSION -Intact right knee arthroplasty. Dictated and | | Signed by: Martin Pastor MD Electronically signed: 06/29/2015 10:12 AM | |FINDINGS: | |There is hardware for right knee arthroplasty that is intact with no evidence | |for loosening. Bone mineralization is mildly decreased. A moderate joint | |effusion is seen. There is moderate anterior soft tissue swelling. | | | |IMPRESSION - | |Intact right knee arthroplasty. | | | | | | | |Dictated and Signed by: Martin Pastor MD | | Electronically signed: 06/29/2015 10:12 AM | + + + +---------+ + [...]
--- OUTSIDE RECORDS SUMMARY | ~2019-07-02 | XMS | Clinical Summary ---
Demographics + + + | Address | [address] | | | [place] [address] | + + + | Home Phone | | + + + | Preferred Language | Unknown | + + + | Marital Status | | + + + | Voodoo Affiliation | Unknown | + + + [...] Providers + +------+ + | Care Financial Aid Manager Name | Role | Phone | + +------+ + | Dutch Rodriguez DO | PCP | | + +------+ + Source Comments FREDRICK is fully live on both [facility] and [facility] Allergies + + + + + [...]
--- OUTSIDE RECORDS SUMMARY | ~2019-07-02 | XMS | Encounter Summary ---
Demographics + + + | Address | [address] | | | [place] [address] | + + + | Home Phone | | + + + | Preferred Language | Unknown | + + + | Marital Status | | + + + | Jainism Affiliation | 1076 | + + + | Race | Unknown | + + + | Ethnic Group | Unknown | + + + Author + + + | Author | [facility] | | | and Primo | + + + | Organization | [facility] | | | and [...] [place], [place] | | | | | [address] | | + + + + + | Dalton Fernandez | ECON | Unknown | | + + + + + | Juana Fernandez | ECON | Unknown | | + + + + + Care Team Providers + +------+ + | Care College Basketball Coach Name | Role | Phone | + [...] | | | | | | | [place] | | | | | | [...] | | | | | [address] | [place] | | | | | [place] | [address] | | | | | [address] | | | | | | [phone] | | | +--------+ + + + [...] +----+---+ + + | | 0 | [place] | | | | 7 | 38-degrees [...] +----+---+ + + | | 0 | [place] | | | | 9 | [...] [place] | | | | | | [address] | | | | | | | [...] monitoring (and charted in | | | [facility]). Performed by: Performing Provider: PASHA OH [...] | | | (and manually charted in [facility] intraoperative record). | | | Performed [...] monitoring (and charted in | | | [facility]). Performed by: Performing Provider: PASHA OH [...]
--- OUTSIDE RECORDS SUMMARY | ~2019-07-02 | XMS | Encounter Summary ---
Demographics + + + | Address | [address] | | | [place] [address] | + + + | Home Phone [...] | Author | [facility] | | | and Primo | + + + | Organization | [facility] | | | and [place] [...] [place], [place] | | | | | [address] | | + + + + + | Dalton Koroma | ECON | Unknown | | + + + + + | Juana Koroma | ECON | Unknown | | + + + + + Care Team Providers + +------+ + | Care Ticket Taker Ferryboat Name | Role | Phone | + [...] + + | 01/25/ | Office | [facility] [place] | Ramin Huggins | S/P orthopedic | | 2017 | Visit | ORTHOPEDIC SURGERY | MD Swathi Gonzalez | surgery, follow-up | | | | [address] [facility] | [place] | exam (Primary Dx) | | | | [place] | [address] | | | | | [address] | | | | | | [phone] | | | +--------+---------+ + + + [...] MD - 01/25/2017 8:39 PM PDT [facility] ORTHOPEDIC SURGER Y [address] [facility] [place] [address] OFFICE NOTE RAMIN HUGGINS MD Patient: MYRIAM KOROMA Admitting: MR #: [id number] LOC: PT TYPE: Adm Date: 01/25/2017 : [...] Transcribed on 01/26/2017 06:28:03 by ameena job# [id number] Confirmation #: [id number] cc: DUTCH ERIK DO Ramin Ureña MD - 01/25/2017 2:30 PM PDTSee soap note [id number].Electronically si gned by Ramin Huggins MD at 01/25/2017 8:40 PM PDTdocumented in this encounter Plan of Treatment +--------+---------+ + + + | Date | Type | Specialty | Care Team | Description | +--------+---------+ + + + | 07/22/ | Office | Orthopedic Surgery | Ramin Huggins | | | 2018 | Visit | | MD Lisa [address] [place] [address] | | | | | | [place] [...]
--- OUTSIDE RECORDS SUMMARY | ~2019-07-02 | XMS | Encounter Summary ---
Demographics + + + | Address | [address] | | | [place] [address] | + + + | Home Phone | | + + + | Preferred Language | Unknown | + + + | Marital Status | | + + + | Church Affiliation | 1076 | + + + | Race | Unknown | + + + | Ethnic Group | Unknown | + + + Author + + + | Author | [facility] | | | and Primo | + + + | Organization | [facility] | | [...] [place], [place] | | | | | [address] | | + + + + + | Dalton Fernandez | ECON | Unknown | | + + + + + | Juana Fernandez | ECON | Unknown | | + + + + + Care Team Providers + +------+ + | Care Cupola Liner Helper Name | Role | Phone | [...] | MD Jason [address] | [address] | | | | | Hyperreflexi | [address] | [place], | | | | | a | [place] | [place] | | | | | Procedures | [place] [address] | [address] | | | | | MRI Cervical | Phone: | Phone: | | | | | Spine wo | [phone] | [phone] | | | | | Contrast | Fax: | Fax: | | | | | | [phone] | [phone] | +--------+--------+ + + + + Reason [...] | | lumbar | [address] | [place], [place] | | | | | vertebrae, | [place], | [address] | | | | | non-traumati | [place] [address] | Phone: | | | | | c ([facility]) | Phone: | [phone] | | | | | COLLAPSE OF | [phone] | Fax: | | | | | LUMBAR | Fax: | [phone] | | | | | VERTEBRAE | [phone] | | | | | | Procedures | | | | | | | [place] OFFICE | | | | | | [...] + + | 03/13/ | Office | [facility] | Douglas Nuñez MD | 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 CRANIAL NERVES: Fundoscopic Exam: The optic [...] Intrinsics 5 5 Ulnar Intrinsics 5 5 Mold Stamper And Repairer Strength 5 5 Hip Flexion 5 5 [...] 2018 | Visit | | MD Lisa [facility] FABIAN | | | | | | [place] | | | | | | [id number] | | | | | | | [...]
--- OUTSIDE RECORDS SUMMARY | ~2019-07-02 | XMS | Encounter Summary ---
Demographics + + + | Address | [address] | | | [place] [address] | + + + | Home Phone | | + + + | Preferred Language | Unknown | + + + | Marital Status | | + + + | Amish Affiliation | 1076 | + + + | Race | Unknown | + + + | Ethnic Group | Unknown | + + + Author + + + | Author | [facility] | | | and Primo | + + + | Organization | [facility] | | | and [place] [...] [place], [place] | | | | | [address] | | + + + + + | Dalton Fernandez | ECON | Unknown | | + + + + + | Juana Fernandez | ECON | Unknown | | + + + + + Care Team Providers + +------+ + | Care Assessment Technician Name | Role | Phone | + +------+ + | Dutch Rodriguez DO | PCP | | + +------+ + Encounter Details +--------+ + + + + | Date | Type | Department | Care Team | Description | +--------+ + + + + | 04/06/ | [facility] | [facility] | Douglas Nuñez MD | S/P lumbar fusion | | 2015 | Encounter | MED CTR XRAY [address] | [address] | | | | | [place] | [place] [address] | | | | | [place] [address] | [phone] | | | | | [phone] | | | +--------+ + + + [...] [place] | | | | | | [address] | | | | | | | [...] Compared to lumbar spine x-rays dating | [facility] | | to June 18, 2014. FINDINGS:Frontal and lateral views of the [facility] | | lumbar spine. Posterior and [...] Nointerval compression deformities. Stable severe compression deformity [id number] | | and more mild involving T11. [...] | + + + + + | [address] | [address] [facility] | [place] | [phone] | | [facility] | | [address] | | | - IMAGING | | | | + + + + + documented in this encounter Visit Diagnoses + + | Diagnosis | + + | S/P lumbar fusion Arthrodesis status | + + documented in this encounter"
--- OUTSIDE RECORDS SUMMARY | ~2019-07-02 | XMS | Encounter Summary ---
Demographics + + + | Address | [address] | | | [place] [address] | + + + | Home Phone [...] + | Author | [facility] | | | and Primo | + + + | Organization | [facility] | | | and [...] [place], [place] | | | | | [address] | | + + + + + | Dalton Fernandez | ECON | Unknown | | + + + + + | Juana Fernandez | ECON | Unknown | | + + + + + Care Team Providers + +------+ + | Care Criminal Records Technician Name | Role | Phone | + +------+ + | Dutch Rodriguez DO | PCP | | + +------+ + Encounter Details +--------+ + + + + | Date | Type | Department | Care Team | Description | +--------+ + + + + | 06/29/ | [facility] | [facility] | Ramin Bess | S/Griselda orthopedic | | 2015 | Encounter | MED CTR FABIAN XRAY | MD iLsa [address] [place] [address] | surgery, follow-up | | | | [address] [place] | [place] | exam | | | | [place] | [address] | | | | | [address] | | | | | | [phone] | | | +--------+ + + + [...] 2018 | Visit | | MD Lisa [facility] [place]ABIAN | | | | | | [place] | | | | | | [address] | | | | | | | [...]
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
--- OUTSIDE RECORDS SUMMARY | ~2019-07-02 | XMS | Encounter Summary ---
Demographics + + + | Address | [address] | | | [place] [address] | + + + | Home Phone | | + + + | Preferred Language | Unknown | + + + | Marital Status | | + + + | Synagogue Affiliation | 1076 | + + + | Race | Unknown | + + + | Ethnic Group | Unknown | + + + Author + + + | Author | [facility] | | | and Primo | + + + | Organization | [facility] | | | [...] [place], [place] | | | | | [address] | | + + + + + | Dalton Fernandez | ECON | Unknown | | + + + + + | Juana Fernandez | ECON | Unknown | | + + + + + Care Team Providers + +------+ + | Care It Security Administrator Name | Role | Phone | + +------+ + | Dutch Rodriguez DO | PCP | | + +------+ + Encounter Details +--------+ + + + + | Date | Type | Department | Care Team | Description | +--------+ + + + + | 04/06/ | [facility] | [facility] | Douglas Nuñez MD | S/P lumbar fusion | | 2015 | Encounter | MED CTR XRAY [address] | [address] | | | | | [place] | [place] [address] | | | | | [place] [address] | [phone] | | | | | [phone] | | | +--------+ + + + [...] [place] | | | | | | [address] | | | | | | | [...] Compared to lumbar spine x-rays dating | [facility] | | to June 18, 2014. FINDINGS:Frontal and lateral views of the [facility] | | lumbar spine. Posterior [...] Nointerval compression deformities. Stable severe compression deformity [id number] | | and more mild involving T11. [...] | + + + + + | [address] | [address] | [place] | [phone] | | [facility] | | [address] | | | - IMAGING | | | | + + + + + documented in this encounter Visit Diagnoses + + | Diagnosis | + + | S/P lumbar fusion Arthrodesis status | + + documented in this encounter"
--- OUTSIDE RECORDS SUMMARY | ~2019-07-02 | XMS | Encounter Summary ---
Demographics + + + | Address | [address] | | | [place] [address] | + + + | Home Phone [...] | Author | [facility] | | | and Primo | + + + | Organization | [facility] | [...] [place], [place] | | | | | [address] | | + + + + + | Dalton Fernandez | ECON | Unknown | | + + + + + | Juana Fernandez | ECON | Unknown | | + + + + + Care Team Providers + +------+ + | Care Discharge Planner Name | Role | Phone | + [...] + + + + | 03/16/ | Telephone | [facility] | Douglas Nuñez MD | Other | | 2013 | | NEUROSURGERY [address] | [address] | | | | | [address] [facility] [address] | [place] [address] | | | | | [place] | [phone] | | | | | [address] | | | | | | [phone] | | | +--------+ + + + [...] [place] | | | | | | [address] | | | | | | | | +--------+---------+ + + + documented as of this encounter Visit Diagnoses Not on filedocumented in this encounter"
--- OUTSIDE RECORDS SUMMARY | ~2019-07-02 | XMS | Encounter Summary ---
Demographics + + + | Address | [address] | | | [place] [address] | + + + | Home Phone [...] Author | [facility] | | | and Primo | + + + | Organization | [facility] [...] [place], [place] | | | | | [address] | | + + + + + | Dalton Fernandez | ECON | Unknown | | + + + + + | Juana Fernandez | ECON | Unknown | | + + + + + Care Team Providers + +------+ + | Care Associate Professor Of Art Name | Role | Phone | + +------+ + | Dutch Rodriguez DO | PCP | | + +------+ + Encounter Details +--------+ + + + + | Date | Type | Department | Care Team | Description | +--------+ + + + + | 04/30/ | [facility] | [facility] | Ramin Bess | Pelvic cyst | | 2015 | Encounter | MED CTR ULTRASOUND | MD Lisa [address] [place] [address] | | | | | [address] | [place] | | | | | [place] | [address] | | | | | [address] | | | | | | [phone] | Anyi Cohen | | | | | | A, Technologist | | | | | | [place] | | | | | | [address] | | +--------+ + + + + [...] [place] | | | | | | [address] | | | | | | | [...] knee prosthesis planning MRI COMPARISON: Knee prosthesis [facility] | | planning MR images April [...] [address] | [place] | [phone] | | [facility] | | [address] | | | - IMAGING | | | | + + + + + documented in this encounter Visit Diagnoses + + | Diagnosis | + + | Pelvic cyst Other specified symptom associated with female genital organs | + + documented in this encounter"
--- OUTSIDE RECORDS SUMMARY | ~2019-07-02 | XMS | Encounter Summary ---
Demographics + + + | Address | [address] | | | [place] [address] | + + + | Home Phone [...] | Author | [facility] | | | and Primo | + + + | Organization | [facility] | | | and [place] [...] [place], [place] | | | | | [address] | | + + + + + | Dalton Fernandez | ECON | Unknown | | + + + + + | Juana Fernandez | ECON | Unknown | | + + + + + Care Team Providers + +------+ + | Care Transportation Engineer Name | Role | Phone | [...] + + | 05/04/ | Office | [facility] | Ramin Bess | Pre-op testing | | 2015 | Visit | ORTHOPEDIC SURGERY | MD Lisa [address] | (Primary Dx); | | | | [address] | [place] | Primary | | | | [place] | [address] | osteoarthritis of | | | | [address] | | both knees | | | | [phone] | | | +--------+---------+ + + + [...] [place] | | | | | | [address]95[address] | | | | | | | [...] + + + + | Color | [place] (A) | Light Yellow, | [facility] | [...] - 1.030 | [facility] | | | [place] | | | [facility] | | [...] + | [facility] | [address] | [place] | [phone] | | [facility] | | [address] | | | - LABORATORY | | [...] | mL/min/1.73m2 | [place] | | | [place] | RATE,ESTIMATED | | MEDICAL | | | | mL/min/1.92s7Cjvn than | | CENTER - | | [...] [address] | [place] | [phone] | | [facility] | | [address] | | | - LABORATORY | | [...] [address] | [place] | [phone] | | [facility] | | [address] | | | - LABORATORY | | | | + + + + + documented in this encounter Visit Diagnoses + + | Diagnosis | + + | Pre-op testing - Primary Preoperative examination, unspecified | + + | Primary osteoarthritis of both knees Primary localized osteoarthrosis, lower leg | + + documented in this encounter
--- OUTSIDE RECORDS SUMMARY | ~2019-07-02 | XMS | Encounter Summary ---
Demographics + + + | Address | [address] | | | [place] [address] | + + + | Home Phone | | + + + | Preferred Language | Unknown | + + + | Marital Status | | + + + | Cheondoism Affiliation | 1076 | + + + | Race | Unknown | + + + | Ethnic Group | Unknown | + + + Author + + + | Author | [facility] | | | and Primo | + + + | Organization | [facility] | | | and [place] [...] [place], [place] | | | | | [address] | | + + + + + | Dalton Fernandez | ECON | Unknown | | + + + + + | Juana Fernandez | ECON | Unknown | | + + + + + Care Team Providers + +------+ + | Care Cheese Tester Name | Role | Phone | [...] | ORTHOPEDIC SURGERY | MD Lisa [address] | Dx) | | | | [address] [facility] | [place] | | | | | [place] | [address] | | | | | [address] | | | | | | [phone] | | | +--------+ + + + [...] 2018 | Visit | | MD Lisa [address] [place] [address] | | | | | | [place] | | | | | | [address] | | | | | | | [...] prosthesis planning MRI COMPARISON: Knee prosthesis | [facility] | | planning MR images April 27 [...] ST[address] | [address] | [place], [place] | [phone] | | [facility] | | [address] | | | - IMAGING | | | | + + + + + documented in this encounter Visit Diagnoses + + | Diagnosis | + + | Pelvic cyst - Primary Other specified symptom associated with female genital organs | + + documented in this encounter"
--- OUTSIDE RECORDS SUMMARY | ~2019-07-02 | XMS | Encounter Summary ---
Demographics + + + | Address | [address] | | | [place] [address] | + + + | Home Phone | | + + + | Preferred Language | Unknown | + + + | Marital Status | | + + + | Judaism Affiliation | 1076 | + + + | Race | Unknown | + + + | Ethnic Group | Unknown | + + + Author + + + | Author | [facility] | | | and Primo | + + + | Organization | [facility] | | | and [...] [place], [place] | | | | | [address] | | + + + + + | Dalton Koroam | ECON | Unknown | | + + + + + | Juana Koroma | ECON | Unknown | | + + + + + Care Team Providers + +------+ + | Care Medical Transcriber Name | Role | Phone | + +------+ + | Dutch Valencia DO | PCP | | + +------+ + Encounter Details +--------+---------+ + + + | Date | Type | Department | Care Team | Description | +--------+---------+ + + + | 06/03/ | Office | [facility] | Ramin Huggins | S/P orthopedic | | 2015 | Visit | ORTHOPEDIC SURGERY | MD Lisa [address] [place] [address] | surgery, follow-up | | | | [address] [facility] | [place] | exam (Primary Dx) | | | | [place] | [address] | | | | | [address] | | | | | | [phone] | | | +--------+---------+ + + + [...] - 06/04/2015 6:46 AM PDTKyle shepherd note [id number].Electronically sign ed by Ramin Huggins MD at 06/04/2015 6:46 AM Ramin Ureña MD - 6:45 AM PDT [facility] [address] [place] [address] [id number] OFFICE NOTE RAMIN HUGGINS MD Patient: ANA KOROMA Admitting: MR #: [id number] LOC: PT TYPE: Adm Date: 06/03/2015 : [...] with us prior to her return to [place] for application of Kinesio taping to help with her swelling. We wi ll plan to see her back next 06/08/2015, for staple removal and clinical followup . At this time, I feel that she is doing well in spite of her swelling and hopefully she w ill go on to recover nicely. RAMIN HUGGINS MD Dictated by RAMIN HUGGINS MD 06/04/2015 06:45:21 Transcribed on 06/05/2015 05:40:05 by [facility] job# [id number] Confirmation #: [id number] cc: DUTCH VALENCIA DO documented in this encounter Plan of Treatment +--------+---------+ + + + | Date | Type | Specialty | Care Team | Description | +--------+---------+ + + + | 07/22/ | Office | Orthopedic Surgery | Ramin Huggins | | | 2019 | Visit | | MD Lisa [address] [place] [address] | | | | | | [place] | | | | | | [address] | | | | | | | | +--------+---------+ + + + documented as of this encounter Visit Diagnoses + + | Diagnosis | + + | S/P orthopedic surgery, follow-up exam - Primary Follow-up examination, following | | other surgery | + + documented in this encounter"
--- OUTSIDE RECORDS SUMMARY | ~2019-07-02 | XMS | Encounter Summary ---
Demographics + + + | Address | [address] | | | [place] [address] | + + + | Home Phone [...] + | Author | [facility] | | | and Primo | + + + | Organization | [facility] | [...] [place], [place] | | | | | [address] | | + + + + + | Dalton Krooma | ECON | Unknown | | + + + + + | Juana Koroma | ECON | Unknown | | + + + + + Care Team Providers + +------+ + | Care Fixed Wing Aircraft Flight Engineer Name | Role | Phone | [...] + + | 11/28/ | Office | [facility] | Ramin Huggins | S/P orthopedic | | 2016 | Visit | ORTHOPEDIC SURGERY | MD Lisa [address] [place] [address] | surgery, follow-up | | | | [address] [facility] | [place] | exam (Primary Dx) | | | | [place] | [address] | | | | | [address] | | | | | | [phone] | | | +--------+---------+ + + + [...] - 11/28/2016 6:33 PM PDTSee soap note [id number].Electronically dakota d by Ramin Huggins MD at 11/28/2016 6:33 PM PDTRamin Huggins MD - 11/28/2016 6:33 PM PDT [facility]GERY [address] [place] [address] OFFICE NOTE RAMIN HUGGINS MD Patient: MYRIAM KOROMA Admitting: MR #: [id number] LOC: PT TYPE: Adm Date: 11/28/2016 : [...] Transcribed on 11/29/2016 06:17:44 by sean job# [id number] Confirmation #: [id number] cc: DUTCH VALENCIA DO documented in this encounter Plan of Treatment +--------+---------+ + + + | Date | Type | Specialty | Care Team | Description | +--------+---------+ + + + | 07/22/ | Office | Orthopedic Surgery | Ramin Huggins | | | 2019 | Visit | | MD Lisa [address] [place] [address] | | | | | | [place] | | | | | | 830[address] | | | | | | | | +--------+---------+ + + + documented as of this encounter Visit Diagnoses + + | Diagnosis | + + | S/P orthopedic surgery, follow-up exam - Primary Follow-up examination, following | | other surgery | + + documented in this encounter
--- OUTSIDE RECORDS SUMMARY | ~2019-07-02 | XMS | Encounter Summary ---
Demographics + + + | Address | [address] | | | [place] [address] | + + + | Home Phone | | + + + | Preferred Language | Unknown | + + + | Marital Status | | + + + | Gnosticist Affiliation | 1076 | + + + | Race | Unknown | + + + | Ethnic Group | Unknown | + + + Author + + + | Author | [facility] | | | and Primo | + + + | Organization | [facility] | | | and [...] [place], [place] | | | | | [address] | | + + + + + | Dalton Fernandez | ECON | Unknown | | + + + + + | Juana Fernandez | ECON | Unknown | | + + + + + Care Team Providers + +------+ + | Care Yeast Culture Operator Name | Role | Phone | [...] + + | 05/09/ | Office | [facility] | Zachery Soria | Status post total | | 2016 | Visit | ORTHOPEDIC SURGERY | LILIANA [address] | knee replacement, | | | | [address] [facility] | Josué Young | left (Primary Dx) | | | | [place] | [place] [address] | | | | | [address] | [phone] | | | | | [phone] | | | +--------+---------+ + + + [...] She is no t taking prescribed or pjiy-zcw-avtgoiz pain medication. Pain remains well controlled. Fee [...] 16:21 This note was dictated using the [employer] voice recognition system. Minor errors in grammar may have occurred. documented in t his encounter Plan of Treatment +--------+---------+ + + + | Date | Type | Specialty | Care Team | Description | +--------+---------+ + + + | 07/22/ | Office | Orthopedic Surgery | Ramin eBss | | | 2018 | Visit | | MD Lisa [address] [place] [address] | | | | | | [place] | | | | | | [address] | | | | | | | | +--------+---------+ + + + documented as of this encounter Visit Diagnoses + + | Diagnosis | + + | Status post total knee replacement, left - Primary | + + documented in this encounter
--- OUTSIDE RECORDS SUMMARY | ~2019-07-02 | XMS | Clinical Summary ---
Demographics + + + | Address | [address] | | | [place] [address] | + + + | Home Phone [...] Author | [facility] | | | and Primo | + + + | Organization | [facility] | | | and [...] [place], [place] | | | | | [address] | | + + + + + | Daltno Fernandez | ECON | Unknown | | + + + + + | Juana Fernandez | ECON | Unknown | | + + + + + Care Team Providers + +------+ + | Care Self Storage Manager Name | Role | Phone | [...] 0 | | | Activ | | Cbvoyei-Gwlbunsyy-Zc | mouth Daily. | | | | [...] [place] | | | | | | [address] | | | | | | | [...] | | 06/05/ | 00-111 | | [id number]: Qty: 1 on | c | Knee | ZIMM | | 2019 | 2-140- | | 02/09/2016 by Shahriar, | | | | | | 01 / | | Ramin Gonzalez MD at [facility] | | | | | | /[id number] | | [facility] | | | | | | 472 | | CENTER | | | | | | | + +--------+--------+ +--------+--------+--------+ | Sharad Bone Palacos-R 40gm - | Generi | Left: | CHRISTIANE - | | 06/05/ | 00-111 | | [id number]: Qty: 1 on | c | Knee | ZIMM | | 2019 | 2-140- | | 02/09/2016 by Shahriar, | | | | | | 01 / | | Ramin Gonzalez MD at [facility] | | | | | | /[id number] | | [facility] | | | | | | 472 | | CENTER | | | | | | | + +--------+--------+ +--------+--------+--------+ | Imp Knee Tib 5deg Lt Seb - | Generi | Left: | CHRISTIANE - | | 12/03/ | 42-532 | | [id number]: Qty: 1 on | c | Knee | ZIMM | | 2025 | 0-071- | | 02/09/2016 by Shahriar, | | | | | | 01 / | | Ramin Gonzalez MD at [facility] | | | | | | /[id number] | | [facility] | | | | | | 826 | | CENTER | | | | | | | + +--------+--------+ +--------+--------+--------+ | Imp Knee Ptela Polyeth 35mm - | Generi | Left: | CHRISTIANE - | | 12/03/ | 42-540 | | [id number]: Qty: 1 | c | Knee | ZIMM | | 2023 | 0-000- | | on 02/09/2016 by Shahriar, | | | | | | 35 / | | Ramin Gonzalez MD at [facility] | | | | | | /[id number] | | [facility] | | | | | | 861 | | CENTER | | | | | | | + +--------+--------+ +--------+--------+--------+ | Imp Knee Fem Stem Cr Lt 0 Sz6 | Generi | Left: | CHRISTIANE - | | 02/02/ | 42-502 | | - [id number]: Qty: 1 | c | Knee | ZIMM | | 2024 | 6-060- | | on 02/09/2016 by Shahriar, | | | | | | 01 / | | Ramin Gonzalez MD at [facility] | | | | | | /[id number] | | [facility] | | | | | | 147 | | CENTER | | | | | | | + +--------+--------+ +--------+--------+--------+ | Nail Fem Scn T2 [id number] - | Nail | Left: | JUDY | | 03/05/ | 1826-1 | | [id number]: Qty: 1 on | | Femur | MEDICAL - | | 2019 | 332S / | | 10/23/2016 by Shahriar, | | | STRY | | | | | Ramin Gonzalez MD at [facility] | | | | | | /[id number] | | [facility] | | | | | | 42 | | CENTER | | | | | | | + +--------+--------+ +--------+--------+--------+ | Screw Jeimy F/T T2 Ti 5x60mm - | Screw | Left: | JUDY | | 05/05/ | 1896-5 | | [id number]: Qty: 1 on | | Femur | MEDICAL - | | 2019 | 060S / | | 10/23/2016 by Shahriar, | | | STRY | | | | | Ramin Gonzalez MD at [facility] | | | | | | /[id number] | | [facility] | | | | | | 29 | | CENTER | | | | | | | + +--------+--------+ +--------+--------+--------+ | Screw Jeimy F/T T2 Ti 5x70mm - | Screw | Left: | JUDY | | 07/05/ | 1896-5 | | [id number]: Qty: 1 on | | Femur | MEDICAL - | | 2020 | 070S / | | 10/23/2016 by Shahriar, | | | TONY | | | | | Ramin Gonzalez MD at [facility] | | | | | | /[id number] | | [facility] | | | | | | 82 | | CENTER | | | | | | | + +--------+--------+ +--------+--------+--------+ | Screw Jeimy F/T T2 Ti 5x75mm - | Screw | Left: | JUDY | | 01/03/ | 1896-5 | | [id number]: Qty: 1 on | | Femur | MEDICAL - | | 2020 | 075S / | | 10/23/2016 by Shahriar, | | | TONY | | | | | Ramin Gonzalez MD at [facility] | | | | | | /[id number] | | [facility] | | | | | | 1F | | CENTER | | | | | | | + +--------+--------+ +--------+--------+--------+ | Screw Jeimy F/T T2 Ti 5x30mm - | Screw | Left: | JUDY | | 08/05/ | 1896-5 | | [id number]: Qty: 1 on | | Femur | MEDICAL - | | 2020 | 030S / | | 10/23/2016 by Shahriar, | | | STRY | | | | | Ramin Gonzalez MD at [facility] | | | | | | /[id number] | | [facility] | | | | | | E8 | | CENTER | | | | | | | + +--------+--------+ +--------+--------+--------+ | Graft Infuse Bone Kit Xs - | | Bilate | SOFAMOR | | 05/05/ | [id number] | | [id number]: Qty: 1 on | | ral: | DANEK - DIV | | 2014 | 0 / | | 06/17/2014 by Douglas Nuñez, | | Spine | MEDTRONIC | | | /[id number] | | at [facility] | | Lumbar | - SFDK | | | 06AAL | | [facility] | | | | | | | + +--------+--------+ +--------+--------+--------+ | Cage Capstone 26x11 - | | Left: | MEDTRONIC - | | 04/29/ | 086877 | | [id number]: Qty: 1 on | | Spine | MEDT | | 2021 | | | 06/17/2014 by Douglas Nuñez, | | Lumbar | | | | /[id number] | | at [facility] | | | | | | 788 | | [facility] | | | | | | | + +--------+--------+ +--------+--------+--------+ | 5.5 X 5.0mm ScrewsImplanted: | | Left: | MEDTRONIC - | | | [id number] | | Qty: 4 on 06/17/2014 by Joaquin, | | Spine | MEDT | | | 0641 / | | Douglas Gomez MD at [facility] | | Lumbar | | | | / | | [facility] | | | | | | | + +--------+--------+ +--------+--------+--------+ | Screw Royal 7.5x45mm - | | Left: | MEDTRONIC - | | | [id number] | | [id number]: Qty: 2 on | | Spine | MEDT | | | 0708 / | | 06/17/2014 by Douglas Nuñez, | | Lumbar | | | | / | | at [facility] | | | | | | | | [facility] | | | | | | | + +--------+--------+ +--------+--------+--------+ | Set ScrewsImplanted: Qty: 6 | | Left: | MEDTRONIC - | | | [id number] | | on 06/17/2014 by Douglas Nuñez | | Spine | MEDT | | | 0800 / | | MD Jason at [facility] | | Lumbar | | | | / | | [facility] | | | | | | | + +--------+--------+ +--------+--------+--------+ | RodImplanted: Qty: 1 on | | Left: | MEDTRONIC - | | | [id number] | | 06/17/2014 by Douglas Nuñez, | | Spine | MEDT | | | 5045 / | | at [facility] | | Lumbar | | | | / | | [facility] | | | | | | | + +--------+--------+ +--------+--------+--------+ | RodImplanted: Qty: 1 on | | Left: | MEDTRONIC - | | | [id number] | | 06/17/2014 by Douglas Nuñez, | | Spine | MEDT | | | 5050 / | | at [facility] | | Lumbar | | | | / | | [facility] | | | | | | | + +--------+--------+ +--------+--------+--------+ | Chips Cancellous 30cc - | | | OSTEOTECH - | | | [id number] | | [id number]: Qty: 1 | | | OSTT | | | S | | on 06/17/2014 at [facility] | | | | | | /[id number] | | [facility] | | | | | | 1-045 | | CENTER | | | | | | / | + +--------+--------+ +--------+--------+--------+ | Imp Spn Spcr Cpstn [id number] - | | | [facility]FAMOR | | | 760049 | | [id number]: Qty: 1 on | | | DANEK - DIV | | | 6 / | | 06/17/2014 at [facility] | | | MEDTRONIC | | | /[id number] | | [facility] | | | - SFDK | | | 162 | + +--------+--------+ +--------+--------+--------+ | Sharad Bone Palacos-R/G 40gm - | | | CHRISTIANE - | | 12/03/ | 00-111 | | [id number]: Qty: 2 on | | | [facility] | | 2019 | 3-140- | | 05/26/2015 by Shahriar, | | | | | | 01 / | | Ramin Gonzalez MD at [facility] | | | | | | /[id number] | | [facility] | | | | | | 445 | | CENTER | | | | | | | + +--------+--------+ +--------+--------+--------+ | Imp Knee Ptela Polyeth 35mm - | | | CHRISTIANE - | | 11/23/ | 42-540 | | [id number]: Qty: 1 | | | ZIMM | | 2022 | 0-000- | | on 05/26/2015 by Shahriar, | | | | | | 35 / | | Ramin Gonzalez MD at [facility] | | | | | | /[id number] | | [facility] | | | | | | 235 | | CENTER | | | | | | | + +--------+--------+ +--------+--------+--------+ | Imp Knee Tib 5deg Rt Seb - | | | CHRISTIANE - | | 04/05/ | 42-532 | | [id number]: Qty: 1 on | | | ZIMM | | 2024 | 0-071- | | 05/26/2015 by Shahriar, | | | | | | 02 / | | Ramin Gonzalez MD at [facility] | | | | | | /[id number] | | [facility] | | | | | | 252 | | CENTER | | | | | | | + +--------+--------+ +--------+--------+--------+ | Imp Knee Fem Stem Cr Rt 0 Sz6 | | | CHRISTIANE - | | 10/23/ | 42-502 | | - [id number]: Qty: 1 | | | ZIM | | 5 | 6-060- | | on 05/26/2015 by Shahriar, | | | | | | 02 / | | Ramin Gonzalez MD at [facility] | | | | | | /[id number] | | [facility] | | | | | | 498 | | CENTER | | | | | | | + +--------+--------+ +--------+--------+--------+ | Articular SurfaceImplanted: | | | Christiane | | 10/23/ | 42-522 | | Qty: 1 on 05/26/2015 by | | | | | 2019 | - | | Ramin Bess MD at | | | | | | / | | [facility] | | | | | | /[id number] | | [facility] | | | | | | 204 | + +--------+--------+ +--------+--------+--------+ | Imp Knee Surf Art L 10 | | Left: | CHRISTIANE - | | 04/05/ | 42-512 | | 6-7/Ef - [id number]: | | Knee | ZIMM | | 2019 | - | | Qty: 1 on 02/09/2016 by | | | | | | 10 / | | Ramin Bess MD at | | | | | | /[id number] | | [facility] [place] | | | | | | 721 | | [facility] | | | | | [...] + + | Performing | Address | City/State[facility] | Phone Number | | [...] | | | + +--------+ +--------+-------+---------+--------+ | [facility] | [facility] | [phone] | 08/[birth year]/19 | | | Medica | [...] | 1951 | [phone] | [place] [address] | | | pineda | | | 9 (Home) | | + +--------+ +--------+ + + Advance Directives + + + + + | Type | Date Recorded | Patient | Explanation | | | | Cinder Snapper | | + + + + + | Power of | | | | | Section Leader Screen Printing | | | | + + + [...]
--- OUTSIDE RECORDS SUMMARY | ~2019-07-02 | XMS | Encounter Summary ---
Demographics + + + | Address | [address] | | | [place] [address] | + + + | Home Phone [...] + + | Author | [facility] | | | and Primo | + + + | Organization | [facility] | | [...] [place], [place] | | | | | [address] | | + + + + + | Dalton Fernandez | ECON | Unknown | | + + + + + | Juana Fernandez | ECON | Unknown | | + + + + + Care Team Providers + +------+ + | Care Elevator Constructor Supervisor Name | Role | Phone | [...] | | | | | | | MA TOTAL | | | | | | [...] | | | | | [address] | [place] | | | | | [place] | [address] | | | | | [address] | | | | | | [phone] | | | +--------+ + + + [...] +----+---+ + + | | 0 | Maud | | | | 7 | 38-degrees [...] +----+---+ + + | | 0 | Maud off | | | | 9 | [...] [place] | | | | | | [address] | | | | | | | [...] monitoring (and charted in | | | [facility]). Performed by: Performing Provider: PASHA OH [...] | | | (and manually charted in [facility] intraoperative record). | | | Performed [...] monitoring (and charted in | | | [facility]). Performed by: Performing Provider: PASHA OH [...]
--- OUTSIDE RECORDS SUMMARY | ~2019-07-02 | XMS | Encounter Summary ---
Demographics + + + | Address | [address] | | | [place] [address] | + + + | Home Phone [...] Author | [facility] | | | and Primo | + + + | Organization | [facility] | | [...] [place], [place] | | | | | [address] | | + + + + + | Dalton Fernandez | ECON | Unknown | | + + + + + | Juana Fernandez | ECON | Unknown | | + + + + + Care Team Providers + +------+ + | Care Help Desk Internship Name | Role | Phone | + [...] | ORTHOPEDIC SURGERY | MD Lisa [address] [facility] | | | | | [address] | [facility] [place] | | | | | [place] | [address] | | | | | [address] | | | | | | [phone] | | | +--------+--------+ + + + [...] [place] | | | | | | [id number] | | | | | | | | +--------+---------+ + + + documented as of this encounter Visit Diagnoses Not on filedocumented in this encounter"
--- OUTSIDE RECORDS SUMMARY | ~2019-07-02 | XMS | Encounter Summary ---
Demographics + + + | Address | [address] | | | [place] [address] | + + + | Home Phone | | + + + | Preferred Language | Unknown | + + + | Marital Status | | + + + | Yazdanism Affiliation | 1076 | + + + | Race | Unknown | + + + | Ethnic Group | Unknown | + + + Author + + + | Author | [facility] | | | and Primo | + + + | Organization | [facility] | [...] [place], [place] | | | | | [address] | | + + + + + | Dalton Fernandez | ECON | Unknown | | + + + + + | Juana Fernandez | ECON | Unknown | | + + + + + Care Team Providers + +------+ + | Care Concession Supervisor Name | Role | Phone | [...] + + | 02/21/ | Office | [facility] | Zachery Soria | Status post total | | 2016 | Visit | ORTHOPEDIC SURGERY | [address] | left knee | | | | [address] [facility] | Josué Young | replacement (Primary | | | | [place] | [place] [address] | Dx) | | | | [address] | [phone] | | | | | [phone] | | | +--------+---------+ + + + [...] and o n an outpatient basis at [facility] physical therapy department. Pain has remained well-controlled [...] home and on an outpatient basis at [facility] physical therapy department. Continue with pain medications that were already prescribed. Follow-up in approximately 2 weeks for reeva luation and imaging study. B. Patient is advised that if they have any questions, comments or concerns to contact our office. Electronically signed by: Zachery Soria PA-C 02/22/2016 13:24 This note was dictated using the GoodApp[employer] recognition system. Minor errors in grammar may have occurred. documented in t his encounter Plan of Treatment +--------+---------+ + + + | Date | Type | Specialty | Care Team | Description | +--------+---------+ + + + | 07/22/ | Office | Orthopedic Surgery | Ramin Bess | | | 2019 | Visit | | MD Lisa [address] [place] [address] | | | | | | [place] [...]
--- OUTSIDE RECORDS SUMMARY | ~2019-07-02 | XMS | Encounter Summary ---
Demographics + + + | Address | [address] | | | [place] [address] | + + + | Home Phone [...] | Author | [facility] | | | and Primo | + + + | Organization | [facility] | | | [...] [place], [place] | | | | | [address] | | + + + + + | Dalton Fernandez | ECON | Unknown | | + + + + + | Juana Fernandez | ECON | Unknown | | + + + + + Care Team Providers + +------+ + | Care Cut Out Stitcher Name | Role | Phone | + +------+ + | Dutch Rodriguez DO | PCP | | + +------+ + Encounter Details +--------+ + + + + | Date | Type | Department | Care Team | Description | +--------+ + + + + | 12/26/ | Hospital | [facility] | Ramin Bess | Closed left | | 2017 | Encounter | MED CTR FABIAN XRAY | MD Lisa [address] [facility] | subtrochanteric | | | | [address] | [place] | femur fracture, | | | | [place] | [address] | initial encounter | | | | [address] | | ([facility]) | | | | [phone] | | | +--------+ + + + [...] [place] | | | | | | [address] | | | | | | | [...] | SUBTROCHANTERIC FEMUR FRACTURE. COMPARISON: 10/22/2016 | [facility] | | FINDINGS: Interval progressive, but incomplete [...] [address] | [place] | [phone] | | [facility] | | [address] | | | - IMAGING | | | | + + + + + documented in this encounter Visit Diagnoses + + | Diagnosis | + + | Closed left subtrochanteric femur fracture, initial encounter (HCC) | + + documented in this encounter"
--- OUTSIDE RECORDS SUMMARY | ~2019-07-02 | XMS | Encounter Summary ---
Demographics + + + | Address | [address] | | | [place] [address] | + + + | Home Phone | | + + + | Preferred Language | Unknown | + + + | Marital Status | | + + + | Bahai Affiliation | 1076 | + + + | Race | Unknown | + + + | Ethnic Group | Unknown | + + + Author + + + | Author | [facility] | | | and Primo | + + + | Organization | [facility] | | | and [...] [place], [place] | | | | | [address] | | + + + + + | Dalton Fernandez | ECON | Unknown | | + + + + + | Juana Fernandez | ECON | Unknown | | + + + + + Care Team Providers + +------+ + | Care Drafter Directional Survey Name | Role | Phone | + +------+ + | Dutch Rodriguez DO | PCP | | + +------+ + Reason for Visit +--------+ + | Reason | Comments | +--------+ + | Pain | | +--------+ + Encounter Details +--------+ + + + + | Date | Type | Department | Care Team | Description | +--------+ + + + + | 06/26/ | Telephone | [facility] | Douglas Nuñez MD | Pain | | 2013 | | NEUROSURGERY [address] | [address] | | | | | [address] | [place] [address] | | | | | [place] | [phone] | | | | | [address] | | | | | | [phone] | | | +--------+ + + + [...]
--- OUTSIDE RECORDS SUMMARY | ~2019-07-02 | XMS | Encounter Summary ---
Demographics + + + | Address | [address] | | | [place] [address] | + + + | Home Phone [...] Author | [facility] | | | and Primo | + + + | Organization | [facility] | [...] [place], [place] | | | | | [address] | | + + + + + | Dalton Fernandez | ECON | Unknown | | + + + + + | Juana Fernandez | ECON | Unknown | | + + + + + Care Team Providers + +------+ + | Care Public Speaking Teacher Name | Role | Phone | [...] [address] | | | | | [place], [place] | [place], [place] | | | | | [address] | [address] | | | | | [phone] | | | +--------+ + + + [...] | 2019 | Visit | | MD Lsia [address] [place] [address] | | | | | | [place] | | | | | | [address] | | | | | | | [...] + | MISCELLANEOUS LAB | | | [phone] | + +---------+ + + | MISCELANIOUS LAB | | | [phone] | + +---------+ + + documented in this encounter Visit Diagnoses + + | Diagnosis | + + | S/P lumbar fusion - Primary Arthrodesis status | + + documented in this encounter"
--- OUTSIDE RECORDS SUMMARY | ~2019-07-02 | XMS | Encounter Summary ---
Demographics + + + | Address | [address] | | | [place] [address] | + + + | Home Phone [...] | Author | [facility] | | | and Primo | + + + | Organization | [facility] | [...] [place], [place] | | | | | [address] | | + + + + + | Dalton Fernandez | ECON | Unknown | | + + + + + | Juana Fernandez | ECON | Unknown | | + + + + + Care Team Providers + +------+ + | Care Pit Inspector Name | Role | Phone | [...] + + | 04/17/ | Telephone | [facility] | Zachery Soria | Medication Question | | 2017 | | ORTHOPEDIC SURGERY | [address] | | | | | [address] [facility] | [facility] | | | | | [place] | [place] [address] | | | | | [address] | [phone] | | | | | [phone] | | | +--------+ + + + [...]
--- OUTSIDE RECORDS SUMMARY | ~2019-07-02 | XMS | Encounter Summary ---
Demographics + + + | Address | [address] | | | [place] [address] | + + + | Home Phone [...] Author | [facility] | | | and Primo | + + + | Organization | [facility] | [...] [place], [place] | | | | | [address] | | + + + + + | Dalton Fernandez | ECON | Unknown | | + + + + + | Juana Fernandez | ECON | Unknown | | + + + + + Care Team Providers + +------+ + | Care Outsole Compressor Name | Role | Phone | + +------+ + | Dutch Rodriguez DO | PCP | | + +------+ + Encounter Details +--------+ + + + + | Date | Type | Department | Care Team | Description | +--------+ + + + + | 06/10/ | Hospital | [facility] | Douglas Nuñez MD | | | 2013 | Encounter | MED CTR LABORATORY | [address] [facility] [address] | | | | | [address] | [place] [address] | | | | | [place] | [phone] | | | | | [address] | | | | | | [phone] | | | +--------+ + + + [...] 2018 | Visit | | MD Lisa [address] [place] [address] | | | | | | [place] | | | | | | [address] | | | | | | | | +--------+---------+ + + + documented as of this encounter Visit Diagnoses Not on filedocumented in this encounter"
--- OUTSIDE RECORDS SUMMARY | ~2019-07-02 | XMS | Encounter Summary ---
Demographics + + + | Address | [address] | | | [place] [address] | + + + | Home Phone [...] Author | [facility] | | | and Primo | + + + | Organization | [facility] | | | [...] [place], [place] | | | | | [address] | | + + + + + | Dalton Fernandez | ECON | Unknown | | + + + + + | Juana Fernandez | ECON | Unknown | | + + + + + Care Team Providers + +------+ + | Care Receiver Name | Role | Phone | + [...] Description | +--------+---------+ + + + | 02/08/ | Surgery | [facility] | Ramin Bess | Left Total Knee | | 2016 | | MED CTR OR INTRA OP | MD Lisa [address] | Arthroplasty | | | | [address] | [place], [place] | | | | | [place], [place] | [address] | | | | | [address] | | | | | | [phone] | | | +--------+---------+ + + + [...] as of this encounter Discharge Summaries Chris Fernch MD - 02/12/2016 8:34 AM PDTFormatting of this note might be different fro m the original. DISCHARGE SUMMARY Pt. Name/Age/: Ana Fernandez 65 y.o. 1950 Date of Admission: 02/09/2016 [...] mobilized on the first postop day. Sh ujde did well in physical therapy and on [...] go straight to outpatient therapy at the [facility] in [place] and work with Che , the PT [...] per tablet ibuprofen 800 MG tablet aka: ADVILMOTRIN Condition on Discharge: Stable Disposition: Patient was discharged to home Follow-Up Plans: 1-[address] Bess She will remove the aquacel in a week and shower normally without a dressing at that time a nd will call if any wound concerns Code Status/Advance Directive (Pertinent discussions/declarations): Full Code Electronically signed by: Chris French, 02/12/2016 8:34 [facility] documented in this en counter Discharge [...] home tomorrow. Has Xarelto at home. Needs Tappan . Zachery Odonnell PA-C - 02/2016 1:32 [...] F) TempSrc: Oral Oral Oral Resp: 18 18 16 Height: Weight: SpO2: 93% 96% [...] 13:32 This note was dictated using the Taqua voice recognition system. Minor errors in grammar [...] [place] | | | | | | [address] | | | | | | | [...] | | | l | | | Serena | | | Douglas | | | [...] + | [facility] | [address] | [place] | [phone] | | [facility] | | [address] | | | - LABORATORY | | [...] not | >60Comment: GLOMERULAR | >=60 | [facility] | | | | FILTRATION | mL/min/1.73m2 | [facility] | | | ARGENTINE | RATE,ESTIMATED | | MEDICAL | | | | mL/min/1.79t8Wzrr than | | CENTER - | | [...] | | | | | mg/dL | Katy EASLEY | | | | | | [...] ST. | [address] | [place] | [phone] | | [facility] | | [address] | | | - LABORATORY | | [...] + | Silas, Rad Results In - 02/09/2016 1:49 PM PDT [...] + | bupivacaine (liposomal) | Given | 02/09/20 | 20 mLs | | Surgical | | (EXPAREL) 1.3% injection PRN, | | 16 9:16 | | | Site | | Starting Sun02/09/16 at 0916, | | AM PDT | | | | | Intra-op | | | | | | + +--------+ +--------+------+ + +---+---+ | | | +---+---+ + +-------+ +--------+---+ + | EPINEPHrine 1 mg/mL injection | Given | 02/09/20 | 0.3 mg | | Surgical | | PRN, Starting Sun02/09/16 at 0912, | | 16 9:12 | | | Site | | Intra-op | | AM PDT | | | | + +-------+ +--------+---+ + +---+---+ | | | +---+---+ + +-------+ +-------+---+ + | ketorolac (TORADOL) injection | Given | 02/09/20 | 30 mg | | Surgical | | PRN, Starting Sun02/09/16 at 0917, | | 16 9:17 | | | Site | | Intra-op | | AM PDT | | | | + +-------+ +-------+---+ + +---+---+ | | | +---+---+ + +-------+ +--------+---+ + | ropivacaine (NAROPIN) 2 mg/mL | Given | 02/09/20 | 59 mLs | | Surgical | | (0.2%) injection PRN, Starting | | 16 9:15 | | | Site | | 02/09/16 at 0915, Intra-op | | AM PDT | | | | + +-------+ +--------+---+ + +---+---+ | | | +---+---+ + +-------+ +--------+---+ + | sodium chloride bacteriostatic | Given | 02/09/20 | 30 mLs | | Surgical | | 0.9% injection PRN, Starting Wed | | 16 9:16 | | | Site | | 02/09/16 at 0916, Intra-op | | AM PDT | | | | + +-------+ +--------+---+ + +---+---+ | | | +---+---+ + +---------+ + +---+---+ | tranexamic acid (CYKLOKAPRON) | New Bag | 02/09/20 | 3,000 mg | | | | injection Administer over 15 | | 16 9:11 | | | | | Minutes, CONTINUOUS PRN, Starting | | AM PDT | | | | | 02/09/16 at 0911, Intra-op | | | | | | + +---------+ + +---+---+ +---+---+ | | | +---+---+ + +-------+ +-----+---+---+ | vancomycin injection PRN, | Given | 02/09/20 | 3 g | | | | Starting 02/09/16 at 0909, | | 16 9:09 | | | | | Intra-op | | AM PDT | | | | + +-------+ +-----+---+---+ +---+---+ | | | +---+---+ documented in this encounter
--- OUTSIDE RECORDS SUMMARY | ~2019-07-02 | XMS | Encounter Summary ---
Demographics + + + | Address | [address] | | | [place] [address] | + + + | Home Phone [...] | [facility] | | | and Primo | + + + | Organization | [facility] | | | and [...] [place], [place] | | | | | [address] | | + + + + + | Dalton Fernandez | ECON | Unknown | | + + + + + | Juana Fernandez | ECON | Unknown | | + + + + + Care Team Providers + +------+ + | Care Portal Developer Name | Role | Phone | [...] ) | | | | [address] [facility] [address] | [place] [address] | | | | | [place] | [phone] | | | | | [address] | | | | | | [phone] | | | +--------+ + + + [...] [place] | | | | | | [address] | | | | | | | | +--------+---------+ + + + documented as of this encounter Visit Diagnoses Not on filedocumented in this encounter"
--- OUTSIDE RECORDS SUMMARY | ~2019-07-02 | XMS | Encounter Summary ---
Demographics + + + | Address | [address] | | | [place] [address] | + + + | Home Phone [...] + + + | Author | [facility] | | | and Primo | + + + | Organization | [facility] [...] [place], [place] | | | | | [address] | | + + + + + | Dalton Koroma | ECON | Unknown | | + + + + + | Juana Koroma | ECON | Unknown | | + + + + + Care Team Providers + +------+ + | Care Warble Saw Operator Name | Role | Phone | [...] + + | 09/27/ | Office | [facility] | Ramin Huggins | Primary | | 2015 | Visit | ORTHOPEDIC SURGERY | MD Lisa [address] [place] [address] | osteoarthritis of | | | | [address] [place] [address] | [place] | left knee (Primary | | | | [place] | [address] | Dx) | | | | [address] | | | | | | [phone] | | | +--------+---------+ + + + [...] - 09/27/2015 2:40 PM PSTSee soap note [id number].Electronically sign ed by Ramin Huggins MD at 09/27/2015 2:40 PM PSTRamin Huggins MD - 6 2:39 PM PST [facility] ORTHOPEDIC SURGERY [address] [place] [address] OFFICE NOTE RAMIN HUGGINS MD Patient: ANA KOROMA Admitting: MR #: [id number] LOC: PT TYPE: Adm Date: 09/27/2015 : [...] Transcribed on 09/28/2015 06:59:22 by rene job# [id number] Confirmation #: [id number] cc: DUTCH VALENCIA DO documented in this encounter Plan of Treatment +--------+---------+ + + + | Date | Type | Specialty | Care Team | Description | +--------+---------+ + + + | 07/22/ | Office | Orthopedic Surgery | Ramin Huggins | | | 2018 | Visit | | MD Sawthi Gonzalez | | | | | | [place] | | | | | | [address] | | | | | | | | +--------+---------+ + + + documented as of this encounter Visit Diagnoses + + | Diagnosis | + + | Primary osteoarthritis of left knee - Primary Primary localized osteoarthrosis, lower | | leg | + + documented in this encounter
--- OUTSIDE RECORDS SUMMARY | ~2019-07-02 | XMS | Encounter Summary ---
Demographics + + + | Address | [address] | | | [place] [address] | + + + | Home Phone | | + + + | Preferred Language | Unknown | + + + | Marital Status | | + + + | Scientologist Affiliation | 1076 | + + + | Race | Unknown | + + + | Ethnic Group | Unknown | + + + Author + + + | Author | [facility] | | | and Primo | + + + | Organization | [facility] | | | [...] [place], [place] | | | | | [address] | | + + + + + | Dalton Fernandez | ECON | Unknown | | + + + + + | Juana Fernandez | ECON | Unknown | | + + + + + Care Team Providers + +------+ + | Care District Agent Name | Role | Phone | + +------+ + | Dutch Rordiguez DO | PCP | | + +------+ + Encounter Details +--------+ + + + + | Date | Type | Department | Care Team | Description | +--------+ + + + + | 07/22/ | [facility] | [facility] | Nino Hurst | S/P lumbar fusion | | 2013 | Encounter | MED CTR XRAY [address] | [address] | | | | | [address] | [address] | | | | | [place] [address] | [place] [address] | | | | | [phone] | [phone] | | | | | | | [...] [place] | | | | | | [address] | | | | | | | [...] 2 or 3 Vw (07/22/2014 11:48 AM [facility]) + + | Specimen | + + [...] + | MISCELLANEOUS LAB | | | [phone] | + +---------+ + + | MISCELANIOUS LAB | | | [phone] | + +---------+ + + documented in this encounter Visit Diagnoses + + | Diagnosis | + + | S/P lumbar fusion Arthrodesis status | + + documented in this encounter"
--- OUTSIDE RECORDS SUMMARY | ~2019-07-02 | XMS | Encounter Summary ---
Demographics + + + | Address | [address] | | | [place] [address] | + + + | Home Phone [...] + | Author | [facility] | | | and Primo | + + + | Organization | [facility] | [...] [place], [place] | | | | | [address] | | + + + + + | Dalton Fernandez | ECON | Unknown | | + + + + + | Juana Fernandez | ECON | Unknown | | + + + + + Care Team Providers + +------+ + | Care Hemodialysis Rn Name | Role | Phone | + +------+ + | Dutch Rodriguez DO | PCP | | + +------+ + Encounter Details +--------+ + + + + | Date | Type | Department | Care Team | Description | +--------+ + + + + | 02/02/ | [facility] | [facility] | Ramin Bess | Ambikauria | | 2016 | Encounter | MED CTR LABORATORY | MD Lisa [address] [facility] | | | | | [address] [place] | [place] | | | | | [place] | [address] | | | | | [address] | | | | | | [phone] | | | +--------+ + + + [...] tablet | Daily. | | | | 6 | + [...] + + +---------+ + + | | 1 tablet every 6 | | 0 | 08/26/19 | | | HYDROcodone-acetamin | hours as needed. | | | 16 | 6 | | ophen (NORCO) 5-325 | | | | | | | mg per tablet | | | | | | + + + +---------+ + + | ibuprofen | 800 mg every 8 hours | | 0 | 08/26/19 | | | (ADVIL,MOTRIN) 800 | as needed for Pain. | | | 16 | 6 | | MG tablet | | | | | | [...] [place] | | | | | | [address] | | | | | | | | +--------+---------+ + + + documented as of this encounter Procedures + +--------+ + + + | Procedure Name | Priori | Date/Time | Associated Diagnosis | Comments | | | ty | | | | + +--------+ + + + | URINALYSIS WITH | Routin | 02/03/2016 | Nocturia | Results for this | | MICROSCOPIC WITH | e | 10:52 AM | | procedure are in the | | CULTURE IF INDICATED | | PDT | | results [...] - 1.030 | [facility] | | | [place] | | | [facility] | | [...] | Present (A) | Negative /LPF | [facility] | | | | | [...] | [facility] | [address] | [place] | [phone] | | [facility] | | [address] | | | - LABORATORY | | | | + + + + + documented in this encounter Visit Diagnoses + + | Diagnosis | + + | Nocturia | + + documented in this encounter"
--- OUTSIDE RECORDS SUMMARY | ~2019-07-02 | XMS | Encounter Summary ---
Demographics + + + | Address | [address] | | | [place] [address] | + + + | Home Phone | | + + + | Preferred Language | Unknown | + + + | Marital Status | | + + + | Nondenominational Affiliation | 1076 | + + + | Race | Unknown | + + + | Ethnic Group | Unknown | + + + Author + + + | Author | [facility] | | | and Primo | + + + | Organization | [facility] | | | and [...] [place], [place] | | | | | [address] | | + + + + + | Dalton Fernandez | ECON | Unknown | | + + + + + | Juana Fernandez | ECON | Unknown | | + + + + + Care Team Providers + +------+ + | Care Title Clerk Name | Role | Phone | + +------+ + | Dutch Rodriguez DO | PCP | | + +------+ + Encounter Details +--------+ + + + + | Date | Type | Department | Care Team | Description | +--------+ + + + + | 01/24/ | Orders Only | [facility] | Ramin Bess | Closed left | | 2016 | | ORTHOPEDIC SURGERY | MD Lisa [address] [place] [address] | subtrochanteric | | | | [address] [place] [address] | [place] | femur fracture, | | | | [place] | [address] | initial encounter | | | | [address] | | ([facility]) (Primary Dx); | | | | [phone] | | Left knee pain, | | [...] 2018 | Visit | | MD Lisa [address] [place] [address] | | | | | | [place] | | | | | | [address] | | | | | | | [...] proximal and distal interlocking screws | MEDICAL CENTER | | and unchanged appearance of the [...] + | Vinod Rosen Results In - 01/25/2017 3:07 PM PDT [...] + + + | [facility] | [address] | [place] | [phone] | | [facility] | | [address] | | | - IMAGING | | | | + + + + + documented in this encounter Visit Diagnoses + + | Diagnosis | + + | Closed left subtrochanteric femur fracture, initial encounter (HCC) - Primary | + + | Left knee pain, unspecified chronicity | + + documented in this encounter"
--- OUTSIDE RECORDS SUMMARY | ~2019-07-02 | XMS | Encounter Summary ---
Demographics + + + | Address | [address] | | | [place] [address] | + + + | Home Phone | | + + + | Preferred Language | Unknown | + + + | Marital Status | | + + + | Pentecostal Affiliation | 1076 | + + + | Race | Unknown | + + + | Ethnic Group | Unknown | + + + Author + + + | Author | [facility] | | | and Primo | + + + | Organization | [facility] | | | [...] [place], [place] | | | | | [address] | | + + + + + | Dalton Fernandez | ECON | Unknown | | + + + + + | Juana Fernandez | ECON | Unknown | | + + + + + Care Team Providers + +------+ + | Care Data Entry Specialist Name | Role | Phone [...] + + | 01/20/ | Telephone | [facility] | Nino Hurst | Paperwork | | 2014 | | NEUROSURGERY [address] | [address] | | | | | [facility] [address] | [address] | | | | | [place], [place] | [place] [address] | | | | | [address] | [phone] | | | | | [phone] | | | +--------+ + + + [...]
--- OUTSIDE RECORDS SUMMARY | ~2019-07-02 | XMS | Encounter Summary ---
Demographics + + + | Address | [address] | | | [place] [address] | + + + | Home Phone | | + + + | Preferred Language | Unknown | + + + | Marital Status | | + + + | Buddhist Affiliation | Unknown | + + + | Race | Unknown | + + + | Ethnic Group | Other Race | + + + Author + + + | Author | [facility] | + + + | Organization | [facility] | + + + | Address | Unknown | + + + | Phone | Unavailable | + + + Support + + +---------+ + | Name | Relationship | Address | Phone | + + +---------+ + | Pt None Per | ECON | Unknown | Unavailable | + + +---------+ + Care Team Providers + +------+ + | Care Chief Minister Name | Role | Phone | + +------+ + | Jennifer Dutch | PCP | | + +------+ + Encounter Details +--------+ + + + + | Date | Type | Department | Care Team | Description | +--------+ + + + + | 03/08/ | Pharmacy | Outpatient Retail | | | | 2016 | Visit | [facility] | | | | | | [address] | | | | | | [place], | | | | | | [place] [address] | | | | | | [phone] | | | +--------+ + + + [...] as of this encounter Plan of Treatment Not on filedocumented as of this encounter Visit Diagnoses Not on filedocumented in this encounter"
--- OUTSIDE RECORDS SUMMARY | ~2019-07-02 | XMS | Encounter Summary ---
Demographics + + + | Address | [address] | | | [place] [address] | + + + | Home Phone [...] | Author | [facility] | | | and Primo | + + + | Organization | [facility] [...] [place], [place] | | | | | [address] | | + + + + + | Dalton Fernandez | ECON | Unknown | | + + + + + | Juana Fernandez | ECON | Unknown | | + + + + + Care Team Providers + +------+ + | Care Soaking Tank Worker Name | Role | Phone | [...] Primary | Ramin Gonzalez, | [address] | | | | | localized | MD [address] | [place], | | | | | osteoarthros | [address] | [place] | | | | | is, lower | [place], | [address] | | | | | leg, right | [place] [address] | Phone: | | | | | Fitting and | Phone: | [phone] | | | | | adjustment | [phone] | Fax: | | | | | of | Fax: | [phone] | | | | | unspecified | [phone] | | | | | | prosthetic [...] Primary | Ramin L, | [address] | | | | | localized | [address] | [place], | | | | | osteoarthros | [address] | [place] | | | | | is, lower | [place], | [address] | | | | | leg, right | [place] [address] | Phone: | | | | | Fitting and | Phone: | [phone] | | | | | adjustment | [phone] | Fax: | | | | | of | Fax: | [phone] | | | | | unspecified | [phone] | | | | | | prosthetic [...] | +--------+ + + + + | 04/07/ | Hospital | [facility] | Ramin Bess | Primary localized | | 2015 | Encounter | MED CTR MRI [address] | MD Lisa [address] [facility] | osteoarthrosis, | | | | [address] [place], | [place], [place] | lower leg, right; | | | | [place] [address] | [address] | Fitting and | | | | [phone] | | adjustment of | | | [...] by mouth | | 0 | | 03/21/201 | | | in the morning and [...] 2018 | Visit | | MD Lisa [address] [place] [address] | | | | | | [place] | | | | | | [address] | | | | | | | | +--------+---------+ + + + documented as of this encounter Procedures + +--------+ + + + | Procedure Name | Priori | Date/Time | Associated Diagnosis | Comments | | | ty | | | | + +--------+ + + + | MRI KNEE RIGHT WO | Routin | 04/07/2015 | Primary localized | Results for this | | CONTRAST | e | 11:55 AM | osteoarthrosis, | procedure are in [...] MRI RIGHT KNEE-PROSTHESIS PLANNIN04/07/2015 11:22 AM | [facility] | | CLINICAL HISTORY: KNEE PAIN PROSTHESIS FITTING IMPRESSION - | [facility] | | Limited MR images of the right knee are performed per prosthesis [facility] | | fitting protocol. No diagnostic evaluation is requested or performed. | - IMAGING | | Dictated and Signed by: Bao Justice MD Electronically | | | signed: 04/07/2015 2:15 PM | | + + + + + | Procedure Note | + + | Vinod Rosen Results In - 04/07/2015 2:18 PM PDT LIMITED MRI RIGHT KNEE-PROSTHESIS | | PLANNIN04/07/2015 11:22 AMCLINICAL HISTORY: KNEE PAINPROSTHESIS FITTINGIMPRESSION - | | Limited MR images of the right knee are performed per prosthesisfitting protocol. No | | diagnostic evaluation is requested or performed.Dictated and Signed by: Aditya Alexander | Electronically signed: 04/07/2015 2:15 PM | [...] + | [address] | [address] | [place] | [phone] | | [facility] | | [address] | | | - IMAGING | | | | + + + + + documented in this encounter Visit Diagnoses + + | Diagnosis | + + | Primary localized osteoarthrosis, lower leg, right | + + | Fitting and adjustment of unspecified prosthetic device | + + documented in this encounter"
--- OUTSIDE RECORDS SUMMARY | ~2019-07-02 | XMS | Encounter Summary ---
Demographics + + + | Address | [address] | | | [place] [address] | + + + | Home Phone [...] | [facility] | | | and Primo | + + + | Organization | [facility] | | | and [...] [place], [place] | | | | | [address] | | + + + + + | Dalton Fernandez | ECON | Unknown | | + + + + + | Juana Fernandez | ECON | Unknown | | + + + + + Care Team Providers + +------+ + | Care Charcoal Kiln Burner Name | Role | Phone | + +------+ + | Dutch Rodriguez DO | PCP | | + +------+ + Encounter Details +--------+ + + + + | Date | Type | Department | Care Team | Description | +--------+ + + + + | 06/29/ | [facility] | [facility] | Ramin Bess | S/Griselda orthopedic | | 2015 | Encounter | MED CTR FABIAN XRAY | MD Lisa [address] [place] [address] | surgery, follow-up | | | | [address] [place] | [place] | exam | | | | [place] | [address] | | | | | [address] | | | | | | [phone] | | | +--------+ + + + [...] 2018 | Visit | | MD Lisa [facility] [address] | | | | | | [place] | | | | | | [address] | | | | | | | [...]
--- OUTSIDE RECORDS SUMMARY | ~2019-07-02 | XMS | Encounter Summary ---
Demographics + + + | Address | [address] | | | [place] [address] | + + + | Home Phone | | + + + | Preferred Language | Unknown | + + + | Marital Status | | + + + | Anabaptist Affiliation | 1076 | + + + | Race | Unknown | + + + | Ethnic Group | Unknown | + + + Author + + + | Author | [facility] | | | and Primo | + + + | Organization | [facility] [...] [place], [place] | | | | | [address] | | + + + + + | Dalton Fernandez | ECON | Unknown | | + + + + + | Juana Fernandez | ECON | Unknown | | + + + + + Care Team Providers + +------+ + | Care Mate Fishing Vessel Name | Role | Phone | + [...] | | [address] | [place] [address] | | | | | [place] | [phone] | | | | | [address] | | | | | | [phone] | | | +--------+ + + + [...]
--- OUTSIDE RECORDS SUMMARY | ~2019-07-02 | XMS | Encounter Summary ---
Demographics + + + | Address | [address] | | | [place] [address] | + + + | Home Phone [...] | Author | [facility] | | | and Primo | + + + | Organization | [facility] | | | and [place] [...] [place], [place] | | | | | [address] | | + + + + + | Dalton Fernandez | ECON | Unknown | | + + + + + | Juana Fernandez | ECON | Unknown | | + + + + + Care Team Providers + +------+ + | Care Table Games Dual Rate Supervisor Name | Role | Phone | [...] | | | | | [address] | [place], [place] | | | | | [place], [place] | [address] | | | | | [address] | | | | | | [phone] | Randy Machado | | | | | | MD Carly [address] | | | | | | [address] [place] | | | | | | [place] [address] | | | | | | [phone] | | | | | | | [...] +----+---+ + + | | 1 | [place] | | | | 5 | 43-degrees | | | | 0 | | | | | 4 | | | +----+---+ + + | | 1 | First | | | | 5 | [address] | | | | 0 | | | | | 7 | | | +----+---+ + + | | 1 | [place] off | | | | 6 | [...] Jeimy Ramirez RN | | IV | atom-[id number]-[id number] catheter system; | | | | | [...] | Placement Time: 1451; Airway | Gloria Dumont MD | Gloria Dumont MD | | [...] 10/26/16 2319 by | | eral | [id number] catheter system; | Gloria Dumont MD | [...] [place] | | | | | | [address] | | | | | | | [...] Performing provider: | | | GLORIA DUMONT Ward Attendant: Inessa Lundberg Electronically | | | Signed [...] (PF) injection | Given | 10/24/19 | [id number] | | | | Intravenous, PRN, Pain, [...]
--- OUTSIDE RECORDS SUMMARY | ~2019-07-02 | XMS | Encounter Summary ---
Demographics + + + | Address | [address] | | | [place] [address] | + + + | Home Phone [...] Author | [facility] | | | and Primo | + + + | Organization | [facility] | [...] [place], [place] | | | | | [address] | | + + + + + | Dalton Fernandez | ECON | Unknown | | + + + + + | Juana Fernandez | ECON | Unknown | | + + + + + Care Team Providers + +------+ + | Care Hand Sample Maker Name | Role | Phone | + +------+ + | Dutch Rodriguez DO | PCP | | + +------+ + Reason for Visit +--------+ + | Reason | Comments | +--------+ + | Other | bathing istructions | +--------+ + Encounter Details +--------+ + + + + | Date | Type | Department | Care Team | Description | +--------+ + + + + | 06/15/ | Telephone | [facility] | Douglas Nuñez MD | Other (bathing | | 2013 | | NEUROSURGERY [address] | [address] | istructions) | | | | [address] | [place] [address] | | | | | [place] | [phone] | | | | | [address] | | | | | | [phone] | | | +--------+ + + + [...]
--- OUTSIDE RECORDS SUMMARY | ~2019-07-02 | XMS | Encounter Summary ---
Demographics + + + | Address | [address] | | | [place] [address] | + + + | Home Phone | | + + + | Preferred Language | Unknown | + + + | Marital Status | | + + + | Confucianist Affiliation | 1076 | + + + | Race | Unknown | + + + | Ethnic Group | Unknown | + + + Author + + + | Author | [facility] | | | and Primo | + + + | Organization | [facility] | | [...] [place], [place] | | | | | [address] | | + + + + + | Dalton Fernandez | ECON | Unknown | | + + + + + | Juana Fernandez | ECON | Unknown | | + + + + + Care Team Providers + +------+ + | Care Pill Coater Name | Role | Phone | + [...] Description | +--------+--------+ + + + | 08/29/ | Refill | [facility] | Ramin Bess | Medication Refill | | 2016 | | ORTHOPEDIC SURGERY | MD Lisa [address] [facility] | | | | | [address] [facility] | [place] | | | | | [place] | [address] | | | | | [address] | | | | | | [phone] | | | +--------+--------+ + + + [...] [place] | | | | | | [address] | | | | | | | | +--------+---------+ + + + documented as of this encounter Visit Diagnoses Not on filedocumented in this encounter"
--- OUTSIDE RECORDS SUMMARY | ~2019-07-02 | XMS | Encounter Summary ---
Demographics + + + | Address | [address] | | | [place] [address] | + + + | Home Phone [...] + | Author | [facility] | | | and Primo | + + + | Organization | [facility] | | | [...] [place], [place] | | | | | [address] | | + + + + + | Dalton Fernandez | ECON | Unknown | | + + + + + | Juana Fernandez | ECON | Unknown | | + + + + + Care Team Providers + +------+ + | Care Deck Specialist Name | Role | Phone | + +------+ + | Dutch Rodriguez DO | PCP | | + +------+ + Encounter Details +--------+ + + + + | Date | Type | Department | Care Team | Description | +--------+ + + + + | 01/25/ | Hospital | [facility] | Ramin Bess | Closed left | | 2017 | Encounter | MED CTR FABIAN XRAY | MD Lisa [address] [facility] | subtrochanteric | | | | [address] [place] | [place] | femur fracture, | | | | [place] | [address] | initial encounter | | | | [address] | | ([facility]); Left knee | | | | [phone] | | pain, unspecified | | | [...] | Visit | | MD Swathi Gonzalez [facility] | | | | | | [place] | | | | | | [address] | | | | | | | [...] encounter | | | | | | ([facility]) Left knee | | | | [...] proximal and distal interlocking screws | [facility] [place] | | and unchanged appearance of the [...] ST. | [address] | [place] | [phone] | | [facility] | | [address] | | | - IMAGING | | | | + + + + + documented in this encounter Visit Diagnoses + + | Diagnosis | + + | Closed left subtrochanteric femur fracture, initial encounter (HCC) | + + | Left knee pain, unspecified chronicity | + + documented in this encounter"
--- OUTSIDE RECORDS SUMMARY | ~2019-07-02 | XMS | Encounter Summary ---
Demographics + + + | Address | [address] | | | [place] [address] | + + + | Home Phone [...] Author | [facility] | | | and Primo | + + + | Organization | [facility] | | | and [place] [...] [place] | | | | | [address] | | + + + + + | Dalton Fernandez | ECON | Unknown | | + + + + + | Juana Fernandez | ECON | Unknown | | + + + + + Care Team Providers + +------+ + | Care Insole Filler Name | Role | Phone | + [...] | | [address] | [place] [address] | | | | | [place] | [phone] | | | | | [address] | | | | | | [phone] | | | +--------+ + + + [...] 2019 | Visit | | MD Lisa [address] [place] [address] | | | | | | [place] | | | | | | [address] | | | | | | | [...] COMPARISON: LUMBAR MRI DECEMBER 03, 2013 FROM [facility] | LAB | | [facility] FINDINGS: AP, lateral bending and flexion/extension [...] painCOMPARISON: LUMBAR MRI DECEMBER 03, 2013 FROM [facility] | | HOSPITALFINDINGS: AP, lateral bending [...] + | MISCELLANEOUS LAB | | | [phone] | + +---------+ + + | MISCELANIOUS LAB | | | [phone] | + +---------+ + + documented in this encounter Visit Diagnoses + + | Diagnosis | + + | Back pain - Primary Backache, unspecified | + + documented in this encounter"
--- OUTSIDE RECORDS SUMMARY | ~2019-07-02 | XMS | Encounter Summary ---
Demographics + + + | Address | [address] | | | [place] [address] | + + + | Home Phone | | + + + | Preferred Language | Unknown | + + + | Marital Status | | + + + | Judaism Affiliation | 1076 | + + + | Race | Unknown | + + + | Ethnic Group | Unknown | + + + Author + + + | Author | [facility] | | | and Primo | + + + | Organization | [facility] | | | and [place] [...] [place], [place] | | | | | [address] | | + + + + + | Dalton Fernandez | ECON | Unknown | | + + + + + | Juana Fernandez | ECON | Unknown | | + + + + + Care Team Providers + +------+ + | Care Commercial Loan Coordinator Name | Role | Phone | + +------+ + | Dutch Rodriguez DO | PCP | | + +------+ + Encounter Details +--------+ + + + + | Date | Type | Department | Care Team | Description | +--------+ + + + + | 01/01/ | Hospital | [facility] | Ramin Bess | S/P ORIF (open | | 2018 | Encounter | MED CTR FABIAN XRAY | MD Lisa [address] [facility] | reduction internal | | | | [address] [place] | [place] | fixation) fracture | | | | [place] | [id number] | | | | | [address] | | | | | | [phone] | | | +--------+ + + + [...] capsule 1 | 2 | 0 | 09/03/19 | | | (CLEOCIN) 300 MG | hour prior to dental | capsule | | 18 | 8 | | capsule | procedure. | | [...] [place] | | | | | | [address] | | | | | | | | +--------+---------+ + + + documented as of this encounter Procedures + +--------+ + + + | Procedure Name | Priori | Date/Time | Associated Diagnosis | Comments | | | ty | | | | + +--------+ + + + | XR KNEE LEFT 1 - 2 | Routin | 01/01/2018 | S/P ORIF (open | Results for this | | VW | e | 4:12 PM | reduction internal | procedure are in the | | | | PDT | fixation) fracture | results section. | + +--------+ + [...] S/P ORIF (open reduction internal fixation) fracture | + + documented in this encounter"
--- OUTSIDE RECORDS SUMMARY | ~2019-07-02 | XMS | Encounter Summary ---
Demographics + + + | Address | [address] | | | [place] [address] | + + + | Home Phone [...] | [facility] | | | and Primo | + + + | Organization | [facility] | | | and [place] [...] [place], [place] | | | | | [address] | | + + + + + | Dalton Fernandez | ECON | Unknown | | + + + + + | Juana Fernandez | ECON | Unknown | | + + + + + Care Team Providers + +------+ + | Care Certified Drug Counselor Name | Role | Phone | [...] | | [address] | [place] [address] | | | | | [place] | [phone] | | | | | [address] | | | | | | [phone] | | | +--------+ + + + [...]
--- OUTSIDE RECORDS SUMMARY | ~2019-07-02 | XMS | Encounter Summary ---
Demographics + + + | Address | [address] | | | [place] [address] | + + + | Home Phone [...] Author | [facility] | | | and Primo | + + + | Organization | [facility] | [...] [place], [place] | | | | | [address] | | + + + + + | Dalton Fernandez | ECON | Unknown | | + + + + + | Juana Fernandez | ECON | Unknown | | + + + + + Care Team Providers + +------+ + | Care Bus Info Consultant Name | Role | Phone | [...] + + | 04/02/ | Office | [facility] | Douglas Nuñez MD | 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 Then, look for Transforaminal Lumbar Interbody Fusion (TLIF) under Surgical Options. documented in this encounter Progress Notes Douglas Nuñez MD - 04/02/2014 1:53 PM PDTFormatting of this note might be different from t dontae original. Douglas Nuñez M.D. [address] [facility], [address] [place], [place] [address] FAX: NEUROSURGERY FOLLOW-UP CHIEF COMPLAINT: Chief Complaint [...] medication and asked to followup with her [facility] back surgeon in the future. Unfortunately, [...] has no apparent deficits with short or terminal carman memory. MOTOR EXAM: (5 IS NORMAL) * Indicates pain limited MUSCLE/ MOVEMENT: RIGHT LEFT Deltoids 5 5 Biceps 5 5 Triceps 5 5 Wrist Flexion 5 5 Wrist Extension 5 5 Median Intrinsics 5 5 Ulnar Intrinsics 5 5 Tire Finisher Strength 5 5 Hip Flexion 5 [...] 2019 | Visit | | MD Lisa [address] [place] [address] | | | | | | [place] | | | | | | [address] | | | | | | | [...]
--- OUTSIDE RECORDS SUMMARY | ~2019-07-02 | XMS | Encounter Summary ---
Demographics + + + | Address | [address] | | | [place] [address] | + + + | Home Phone [...] + | Author | [facility] | | | and Primo | + + + | Organization | [facility] | | [...] [place], [place] | | | | | [address] | | + + + + + | Dalton Fernandez | ECON | Unknown | | + + + + + | Juana Fernandez | ECON | Unknown | | + + + + + Care Team Providers + +------+ + | Care Bedspread Seamer Name | Role | Phone | + +------+ + | Dutch Rodriguez DO | PCP | | + +------+ + Encounter Details +--------+ + + + + | Date | Type | Department | Care Team | Description | +--------+ + + + + | 02/02/ | [facility] | [facility] | Ramin Bess | Ambikauria | | 2016 | Encounter | MED CTR LABORATORY | MD Lisa [address] [facility] | | | | | [address] [place] | [place] | | | | | [place] | [address] | | | | | [address] | | | | | | [phone] | | | +--------+ + + + [...] [place] | | | | | | [address] | | | | | | | [...] - 1.030 | [facility] | | | [place] | | | [facility] | | [...] | | | | | | [facility] | | | | | | MEDICAL [...] + | [address] | [address] | [place] | [phone] | | [facility] | | [address] | | | - LABORATORY | | | | + + + + + documented in this encounter Visit Diagnoses + + | Diagnosis | + + | Nocturia | + + documented in this encounter"
--- OUTSIDE RECORDS SUMMARY | ~2019-07-02 | XMS | Encounter Summary ---
Demographics + + + | Address | [address] | | | [place] [address] | + + + | Home Phone [...] | Author | [facility] | | | and Primo | + + + | Organization | [facility] | | | and [place] [...] [place], [place] | | | | | [address] | | + + + + + | Dalton Fernandez | ECON | Unknown | | + + + + + | Juana Fernandez | ECON | Unknown | | + + + + + Care Team Providers + +------+ + | Care Consumer Loan Manager Name | Role | Phone | [...] + + | 06/17/ | Hospital | [facility] | Douglas Nuñez MD | | | 2013 - | Encounter | MED CTR SURGICAL | [address] | | | | | [address] [place] | [place] [address] | | | 06/19/ | | [place] [address] | [phone] | | | 2013 | | [phone] | | | +--------+ + + + [...] might be different from t dontae original. [facility] NEUROSURGERY DISCHARGE SUMMARY Patient Name: Mike [...] MIREYA [place] - 06/18/2014 2:25 PM PST [facility] PROGRESS NOTE Pt. Name/Age/: Mike Fernandez 63 y.o. 1950 Med. Record Number: [id number] Date of admission: 06/17/2014 Subjective: The patient [...] Electronically signed by: Nino Hurst, [facility]18/2014 [facility] documented in th is encounter Plan [...] [place] | | | | | | [address] | | | | | | | [...] + | MISCELLANEOUS LAB | | | [phone] | + +---------+ + + | MISCELANIOUS LAB | | | [phone] | + +---------+ + + documented in [...] | | | | | | use [place] 10/325 if ordered. If | | | [...]
--- OUTSIDE RECORDS SUMMARY | ~2019-07-02 | XMS | Encounter Summary ---
Demographics + + + | Address | [address] | | | [place] [address] | + + + | Home Phone [...] | [facility] | | | and Primo | + + + | Organization | [facility] | [...] [place], [place] | | | | | [address] | | + + + + + | Dalton Fernandez | ECON | Unknown | | + + + + + | Juana Fernandez | ECON | Unknown | | + + + + + Care Team Providers + +------+ + | Care Director Sales Support Name | Role | Phone | + +------+ + | Dutch Rodriguez DO | PCP | | + +------+ + Encounter Details +--------+ + + + + | Date | Type | Department | Care Team | Description | +--------+ + + + + | 07/22/ | [facility] | [facility] | Nino Hurst | S/P lumbar fusion | | 2013 | Encounter | MED CTR XRAY [address] | [address] | | | | | [place] | [facility] [address] | | | | | [place] [address] | [place], [place] | | | | | [phone] | [phone] | | | | | | | [...] [place] | | | | | | [address] | | | | | | | [...] 2 or 3 Vw (07/22/2014 11:48 AM [facility]) + + | Specimen | [...] + | MISCELLANEOUS LAB | | | [phone] | + +---------+ + + | MISCELANIOUS LAB | | | [phone] | + +---------+ + + documented in this encounter Visit Diagnoses + + | Diagnosis | + + | S/P lumbar fusion Arthrodesis status | + + documented in this encounter"
--- OUTSIDE RECORDS SUMMARY | ~2019-07-02 | XMS | Encounter Summary ---
Demographics + + + | Address | [address] | | | [place] [address] | + + + | Home Phone | | + + + | Preferred Language | Unknown | + + + | Marital Status | | + + + | Adventist Affiliation | 1076 | + + + | Race | Unknown | + + + | Ethnic Group | Unknown | + + + Author + + + | Author | [facility] | | | and Primo | + + + | Organization | [facility] | [...] [place], [place] | | | | | [address] | | + + + + + | Dalton Fernandez | ECON | Unknown | | + + + + + | Juana Fernandez | ECON | Unknown | | + + + + + Care Team Providers + +------+ + | Care Tube Skiver Name | Role | Phone | + [...] + + | 10/31/ | Telephone | [facility] | Ramin Bess | Paperwork (Disabled | | 2017 | | ORTHOPEDIC SURGERY | MD Lisa [address] [place] [address] | parking) | | | | [address] [place] [address] | [place] | | | | | [place] | [id number] | | | | | [address] | | | | | | [phone] | | | +--------+ + + + [...]
--- OUTSIDE RECORDS SUMMARY | ~2019-07-02 | XMS | Encounter Summary ---
Demographics + + + | Address | [address] | | | [place] [address] | + + + | Home Phone [...] | Author | [facility] | | | and Primo | + + + | Organization | [facility] | | | and [place] | [...] [place], [place] | | | | | [address] | | + + + + + | Dalton Fernandez | ECON | Unknown | | + + + + + | Juana Fernandez | ECON | Unknown | | + + + + + Care Team Providers + +------+ + | Care Learning Disabilities Resource Teacher Name | Role | Phone | [...] + + | 06/15/ | Telephone | [facility] | Douglas Nuñez MD | Other (bathing | | 2013 | | NEUROSURGERY [address] | [address] | istructions) | | | | [address] | [place] [address] | | | | | [place] | [phone] | | | | | [address] | | | | | | [phone] | | | +--------+ + + + [...]
--- OUTSIDE RECORDS SUMMARY | ~2019-07-02 | XMS | Encounter Summary ---
Demographics + + + | Address | [address] | | | [place] [address] | + + + | Home Phone [...] | Author | [facility] | | | and Primo | + + + | Organization | [facility] [...] [place], [place] | | | | | [address] | | + + + + + | Dalton Fernandez | ECON | Unknown | | + + + + + | Juana Fernandez | ECON | Unknown | | + + + + + Care Team Providers + +------+ + | Care Lapping Machine Set Up Operator Name | Role | Phone | + +------+ + | Dutch Rodriguez DO | PCP | | + +------+ + Encounter Details +--------+ + + + + | Date | Type | Department | Care Team | Description | +--------+ + + + + | 11/01/ | [facility] | [facility] | Michelle Whitfield, PT | | | 2016 | Encounter | MED CTR ACUTE | | | | | | PHYSICAL THERAPY | | | | | | [address] | | | | | | [place] [address] | | | | | | [phone] | | | +--------+ + + + [...] [place] | | | | | | [address] | | | | | | | | +--------+---------+ + + + documented as of this encounter Visit Diagnoses Not on filedocumented in this encounter"
--- OUTSIDE RECORDS SUMMARY | ~2019-07-02 | XMS | Encounter Summary ---
Demographics + + + | Address | [address] | | | [place] [address] | + + + | Home Phone [...] Author | [facility] | | | and Primo | + + + | Organization | [facility] | | [...] [place], [place] | | | | | [address] | | + + + + + | Dalton Fernandez | ECON | Unknown | | + + + + + | Juana Fernandez | ECON | Unknown | | + + + + + Care Team Providers + +------+ + | Care Sales Planner Name | Role | Phone | [...] knee replacement, | | | | [address] [facility] | [facility] | left (Primary Dx) | | | | [place] | [place] [address] | | | | | [address] | [phone] | | | | | [phone] | | | +--------+ + + + [...] [place] | | | | | | [address] | | | | | | | [...] ST. | [address] | [place] | [phone] | | [facility] | | [address] | | | - IMAGING | | | | + + + + + documented in this encounter Visit Diagnoses + + | Diagnosis | + + | Status post total knee replacement, left - Primary | + + documented in this encounter"
--- OUTSIDE RECORDS SUMMARY | ~2019-07-02 | XMS | Encounter Summary ---
Demographics + + + | Address | [address] | | | [place] [address] | + + + | Home Phone [...] Author | [facility] | | | and Primo | + + + | Organization | [facility] | | | [...] [place], [place] | | | | | [address] | | + + + + + | Dalton Koroma | ECON | Unknown | | + + + + + | Juana Koroma | ECON | Unknown | | + + + + + Care Team Providers + +------+ + | Care Funding Specialist Name | Role | Phone | [...] + + | 06/08/ | Office | [facility] | Ramin Huggins | S/P orthopedic | | 2015 | Visit | ORTHOPEDIC SURGERY | MD Lisa [address] [facility] | surgery, follow-up | | | | [address] [facility] | [place] | exam (Primary Dx) | | | | [place] | [address] | | | | | [address] | | | | | | [phone] | | | +--------+---------+ + + + [...] - 06/08/2015 12:22 PM PSTSee soap note [id number].Electronically sign ed by Ramin Huggins MD at 06/08/2015 12:22 PM PSTWell[facility] HealthRamin fierro MD - 12:22 PM PST [facility] ORTHOPEDIC SURGERY [address] [place] [address] OFFICE NOTE RAMIN UHGGINS MD Patient: MYRIAM KOROMA Admitting: MR #: [id number] LOC: PT TYPE: Adm Date: 06/08/2015 : [...] her right knee at that time. RAMIN HUGIGNS MD Dictated by RAMIN HUGGINS MD 06/08/2015 12:22:04 Transcribed on 06/09/2015 03:46:[address] shahid# [id number] Confirmation #: [id number] cc: DUTCH VALENCIA DOElectronjose e signed by [...]
--- OUTSIDE RECORDS SUMMARY | ~2019-07-02 | XMS | Encounter Summary ---
Demographics + + + | Address | [address] | | | [place] [address] | + + + | Home Phone [...] + | Author | [facility] | | | and Primo | + + + | Organization | [facility] | | | and [place] [...] [place], [place] | | | | | [address] | | + + + + + | Dalton Fernandez | ECON | Unknown | | + + + + + | Juana Fernandez | ECON | Unknown | | + + + + + Care Team Providers + +------+ + | Care Interior Decorator Painting Name | Role | Phone | + [...] ORTHOPEDIC SURGERY | MD Lisa [address] [facility] | | | | | [address] [facility] | [place] | | | | | [place] | [address] | | | | | [address] | | | | | | [phone] | | | +--------+--------+ + + + [...] [place] | | | | | | [address] | | | | | | | | +--------+---------+ + + + documented as of this encounter Visit Diagnoses Not on filedocumented in this encounter"
--- OUTSIDE RECORDS SUMMARY | ~2019-07-02 | XMS | Encounter Summary ---
Demographics + + + | Address | [address] | | | [place] [address] | + + + | Home Phone | | + + + | Preferred Language | Unknown | + + + | Marital Status | | + + + | Episcopalian Affiliation | 1076 | + + + | Race | Unknown | + + + | Ethnic Group | Unknown | + + + Author + + + | Author | [facility] | | | and Prim[place] | + + + | Organization | [facility] | | | and [...] [place], [place] | | | | | [address] | | + + + + + | Dalton Fernandez | ECON | Unknown | | + + + + + | Juana Fernandez | ECON | Unknown | | + + + + + Care Team Providers + +------+ + | Care Last Cleaner Name | Role | Phone | + +------+ + | Dutch Rodriguez DO | PCP | | + +------+ + Encounter Details +--------+ + + + + | Date | Type | Department | Care Team | Description | +--------+ + + + + | 06/08/ | Orders Only | [facility] | Nino Hurst | S/P lumbar fusion | | 2013 | | NEUROSURGERY [address] | [address] | (Primary Dx) | | | | [facility] [address] | [address] | | | | | [place], [place] | [place] [address] | | | | | [address] | [phone] | | | | | [phone] | | | +--------+ + + + [...] 2019 | Visit | | MD Lisa [address] [place] [address] | | | | | | [place] | | | | | | [address] | | | | | | | [...] + | MISCELLANEOUS LAB | | | [phone] | + +---------+ + + | MISCELANIOUS LAB | | | [phone] | + +---------+ + + documented in this encounter Visit Diagnoses + + | Diagnosis | + + | S/P lumbar fusion - Primary Arthrodesis status | + + documented in this encounter"
--- OUTSIDE RECORDS SUMMARY | ~2019-07-02 | XMS | Encounter Summary ---
Demographics + + + | Address | [address] | | | [place] [address] | + + + | Home Phone | | + + + | Preferred Language | Unknown | + + + | Marital Status | | + + + | Protestant Affiliation | 1076 | + + + | Race | Unknown | + + + | Ethnic Group | Unknown | + + + Author + + + | Author | [facility] | | | and Primo | + + + | Organization | [facility] | | | and [place] | [...] [place], [place] | | | | | [address] | | + + + + + | Dalton Fernandez | ECON | Unknown | | + + + + + | Juana Fernandez | ECON | Unknown | | + + + + + Care Team Providers + +------+ + | Care Soa Integration Developer Name | Role | Phone | + +------+ + | Dutch Rodriguez DO | PCP | | + +------+ + Encounter Details +--------+ + + + + | Date | Type | Department | Care Team | Description | +--------+ + + + + | 06/17/ | Hospital | [facility] | Zachery Soria | Sprain of collateral | | 2019 | Encounter | MED CTR FABIAN XRAY | [address] | ligament of left | | | | [address] [place] | [facility] | knee, initial | | | | [place], [place] | [place] [address] | encounter; Left knee | | | | [address] | [phone] | pain, unspecified | | | | [phone] | | chronicity | +--------+ + + [...] | | 0 | | | | Roypcwx-Yjygfpuvm-Fn | mouth Daily. | | | | [...] [place] | | | | | | [id number] | | | | | | | [...]
--- OUTSIDE RECORDS SUMMARY | ~2019-07-02 | XMS | Encounter Summary ---
Demographics + + + | Address | [address] | | | [place] [address] | + + + | Home Phone [...] | [facility] | | | and Primo | + + + | Organization | [facility] | [...] [place], [place] | | | | | [address] | | + + + + + | Dalton Fernandez | ECON | Unknown | | + + + + + | Juana Fernandez | ECON | Unknown | | + + + + + Care Team Providers + +------+ + | Care Station Agent Name | Role | Phone | [...] + + | 06/15/ | Telephone | [facility] | Douglas Nuñez MD | Other (bathing | | 2013 | | NEUROSURGERY [address] | [address] | istructions) | | | | [address] | [place] [address] | | | | | [place] | [phone] | | | | | [address] | | | | | | [phone] | | | +--------+ + + + [...]
--- OUTSIDE RECORDS SUMMARY | ~2019-07-02 | XMS | Encounter Summary ---
Demographics + + + | Address | [address] | | | [place] [address] | + + + | Home Phone [...] | [facility] | | | and Primo | + + + | Organization | [facility] | | | and [...] [place], [place] | | | | | [address] | | + + + + + | Dalton Fernandez | ECON | Unknown | | + + + + + | Juana Fernandez | ECON | Unknown | | + + + + + Care Team Providers + +------+ + | Care Market Development Director Name | Role | Phone | [...] | ORTHOPEDIC SURGERY | MD Lisa [address] [facility] | | | | | [address] [facility] | [place] | | | | | [place] | [address] | | | | | [address] | | | | | | [phone] | | | +--------+--------+ + + + [...] [place] | | | | | | [id number] | | | | | | | | +--------+---------+ + + + documented as of this encounter Visit Diagnoses Not on filedocumented in this encounter"
--- OUTSIDE RECORDS SUMMARY | ~2019-07-02 | XMS | Encounter Summary ---
Demographics + + + | Address | [address] | | | [place] [address] | + + + | Home Phone | | + + + | Preferred Language | Unknown | + + + | Marital Status | | + + + | Muslim Affiliation | 1076 | + + + | Race | Unknown | + + + | Ethnic Group | Unknown | + + + Author + + + | Author | [facility] | | | and [place] | + + + | Organization | [facility] | | | and [place] | + + + | Address | Unknown | + + + | Phone | Unavailable | + + + Support + + + + + | Name | Relationship | Address | Phone | + + + + + | Devang Koroma | [place] | [address] | | | | | [place], [place] | | | | | [address] | | + + + + + | Dalton Koroma | ECON | Unknown | | + + + + + | Juana Koroma | ECON | Unknown | | + + + + + Care Team Providers + +------+ + | Care Sticker Machine Operator Name | Role | Phone [...] + + | 01/25/ | Office | [facility] | Ramin Huggins | S/P orthopedic | | 2017 | Visit | ORTHOPEDIC SURGERY | MD Swathi Gonzalez | surgery, follow-up | | | | [address] [facility] | [place] | exam (Primary Dx) | | | | [place] | [address] | | | | | [address] | | | | | | [phone] | | | +--------+---------+ + + + [...] MD - 01/25/2017 8:39 PM PDT [facility] ORTHOPEDIC SURGER Y [address] [facility] [address] OFFICE NOTE RAMIN HUGGINS MD Patient: MYRIAM KOROMA Admitting: MR #: [id number] LOC: PT TYPE: Adm Date: 01/25/2017 : [...] Transcribed on 01/26/2017 06:28:03 by ameena job# [id number] Confirmation #: [id number] cc: DUTCH ERIK DO Ramin Ureña MD - 01/25/2017 2:30 PM PDTSee soap note [id number].Electronically si gned by Ramin Huggins MD at 01/25/2017 8:40 PM PDTdocumented in this encounter Plan of Treatment +--------+---------+ + + + | Date | Type | Specialty | Care Team | Description | +--------+---------+ + + + | 07/22/ | Office | Orthopedic Surgery | Ramin Huggins | | | 2018 | Visit | | MD Lisa [address] [place] [address] | | | | | | [place] [...]
--- OUTSIDE RECORDS SUMMARY | ~2019-07-02 | XMS | Encounter Summary ---
Demographics + + + | Address | [address] | | | [place] [address] | + + + | Home Phone [...] | Author | [facility] | | | and Primo | + + + | Organization | [facility] | | | [...] [place], [place] | | | | | [address] | | + + + + + | Dalton Fernandez | ECON | Unknown | | + + + + + | Juana Fernandez | ECON | Unknown | | + + + + + Care Team Providers + +------+ + | Care Clam Digger Name | Role | Phone | + +------+ + | Dutch Rodriguez DO | PCP | | + +------+ + Encounter Details +--------+ + + + + | Date | Type | Department | Care Team | Description | +--------+ + + + + | 05/04/ | Hospital | [facility] | Ramin Bess | Pre-op testing | | 2015 | Encounter | MED CTR LABORATORY | MD Lisa [address] [facility] | | | | | [address] [place] | [place] | | | | | [place] | [address] | | | | | [address] | | | | | | [phone] | | | +--------+ + + + [...] [place] | | | | | | [address] | | | | | | | | +--------+---------+ + + + documented as of this encounter Procedures + +--------+ + + + | Procedure Name | Priori | Date/Time | Associated Diagnosis | Comments | | | ty | | | | + +--------+ + + + | URINALYSIS WITH | Routin | 05/04/2015 | Pre-op testing | Results for this | | MICROSCOPIC WITH | e | 3:19 PM | | procedure are in the | | CULTURE IF INDICATED | | PDT | | results section. | + +--------+ + + + | CBC WITH | Routin | 05/04/2015 | Pre-op testing | Results for this | | DIFFERENTIAL | e | 3:14 PM | | procedure are in the | | | | PDT | | results section. | + +--------+ + + + | COMPREHENSIVE | Routin | 05/04/2015 | Pre-op testing | Results for this | | METABOLIC PANEL | e | 3:14 PM | | procedure are in the [...] + + + + | Color | Robinson (A) | Light Yellow, | [facility] | | | | | Yellow | [facility] | | | | [...] - 1.030 | [facility] | | | [place] | | | [facility] | | [...] | COMMENT | Indicated | | [facility] | | | [...] + | [facility] | [address] | [place] | [phone] | | [facility] | | [address] | | | - LABORATORY | | [...] [facility] | | | | | | [facility] | | | [...] | [facility] | | | [place] | RATE,ESTIMATED | | MEDICAL | | | | mL/min/1.68r1Elgr than | | CENTER - | | [...] | 9.3 | 8.3 - 10.5 | [facility] | | | | | mg/dL | [facility] | | | | | | MEDICAL | | | | | | CENTER - | | | | | | LABORATORY | | + + + + + + | Albumin | 3.8 | 3.2 - 5.0 g/dL | [facility] | | | | | | [facility] | | | [...] | + + + + + | [facility] | [address] | [place] | [phone] | | [facility] | | [address] | | | - LABORATORY | | [...] | | | | | M/uL | . [facility] | | | | [...] + + | [facility] | [address] | [place] | [phone] | | [facility] | | [address] | | | - LABORATORY | | | | + + + + + documented in this encounter Visit Diagnoses + + | Diagnosis | + + | Pre-op testing Preoperative examination, unspecified | + + documented in this encounter"
--- OUTSIDE RECORDS SUMMARY | ~2019-07-02 | XMS | Encounter Summary ---
Demographics + + + | Address | [address] | | | [place] [address] | + + + | Home Phone | | + + + | Preferred Language | Unknown | + + + | Marital Status | | + + + | Yazdanism Affiliation | 1076 | + + + | Race | Unknown | + + + | Ethnic Group | Unknown | + + + Author + + + | Author | [facility] | | | and [place] | + + + | Organization | [facility] | [...] [place], [place] | | | | | [address] | | + + + + + | Dalton Fernandez | ECON | Unknown | | + + + + + | Juana Fernandez | ECON | Unknown | | + + + + + Care Team Providers + +------+ + | Care Patternmaker Apprentice Metal Name | Role | Phone | + [...] + + | 02/13/ | Telephone | [facility] | Cyn Lee, | Hospital Follow-up | | 2016 | | MED CTR PHARMACY | [address] | | | | | [address] | [place] [address] | | | | | [place] [address] | [phone] | | | | | [phone] | | | +--------+ + + + [...]
--- OUTSIDE RECORDS SUMMARY | ~2019-07-02 | XMS | Encounter Summary ---
Demographics + + + | Address | [address] | | | [place] [address] | + + + | Home Phone [...] | Author | [facility] | | | and [place] | + + + | Organization | [facility] | [...] [place], [place] | | | | | [address] | | + + + + + | Dalton Fernandez | ECON | Unknown | | + + + + + | Juana Fernandez | ECON | Unknown | | + + + + + Care Team Providers + +------+ + | Care Power Technician Name | Role | Phone | + +------+ + | Dutch Rodriguez DO | PCP | | + +------+ + Encounter Details +--------+ + + + + | Date | Type | Department | Care Team | Description | +--------+ + + + + | 03/16/ | [facility] | [facility] | Zachery Soria | | | 2016 | Encounter | MED CTR XRAY [address] | [address] | | | | | [place] | [facility] | | | | | [place] [address] | [place] [address] | | | | | [phone] | [phone] | | | | | | | [...] | Visit | | MD Swathi Gonzalez [facility] | | | | | | [place] | | | | | | [address] | | | | | | | [...] [address] | [place] | [phone] | | [facility] | | [address] | | | - IMAGING | | | | + + + + + documented in this encounter Visit Diagnoses Not on filedocumented in this encounter"
--- OUTSIDE RECORDS SUMMARY | ~2019-07-02 | XMS | Encounter Summary ---
Demographics + + + | Address | [address] | | | [place] [address] | + + + | Home Phone [...] | Author | [facility] | | | and Primo | + + + | Organization | [facility] | [...] [place], [place] | | | | | [address] | | + + + + + | Dalton Koroma | ECON | Unknown | | + + + + + | Juana Koroma | ECON | Unknown | | + + + + + Care Team Providers + +------+ + | Care Starter Mechanic Name | Role | Phone | + [...] Description | +--------+---------+ + + + | 06/29/ | Office | [facility] | Ramin Huggins | S/P orthopedic | | 2015 | Visit | ORTHOPEDIC SURGERY | MD Lisa [address] [facility] | surgery, follow-up | | | | [address] [facility] | [place] | exam (Primary Dx) | | | | [place] | [address] | | | | | [address] | | | | | | [phone] | | | +--------+---------+ + + + [...] Temperature | 37.2 C (99 F) | 06/29/2015 10:09 AM | | | | | PST [...] Weight | 75.8 kg (167 lb) | 06/29/2015 10:09 AM | | | | | PST | | + + + + + | Height | 164.5 cm (5' 4.75") | 06/29/2015 10:09 AM | | | | | PST | | + + + + + | Body Mass Index | 28.01 | 06/29/2015 10:09 AM | | | | | PST [...] encounter Progress Notes Ramin Huggins MD - 06/29/2015 10:41 AM PSTSee soap note [id number].Electronically sign ed by Ramin Huggins MD at 06/29/2015 10:42 AM Ramin Palomino MD - 10:41 AM PST [facility] ORTHOPEDIC SURGERY [address] [place] [address] OFFICE NOTE RAMIN HUGGINS MD Patient: MYRIAM KOROMA Admitting: MR #: [id number] LOC: PT TYPE: Adm Date: 06/29/2015 : 1950 Myriam returns today for followup of her right total knee joint arthroplasty performed on 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 Today, she notes that she is having very minimal pain except for some occasion al aching at night. She is making good progress with physical therapy. She is walking with a cane for community ambulation, nothing for household ambulation. [facility]. EXAMINATION: The patient's right knee is examined. The incision is nicely healed. There is minimal residual swelling. The ankle is not swollen. She has neurovascular function t o the right foot. Range of motion is approximately 4-124 degrees. X-RAYS: X-rays were taken today of the patient's right knee reviewed, which show that lori roque total joint components are nicely aligned and show no evidence of loosening. ADVICE: Myriam is doing well. We will have her continue with physical therapy as she has completed therapy as ordered. She may resume anti-inflammatory medication as desired as marion roque has now completed her course on Xarelto. We have given her a single non-fillable prescri ption for [place] 10/325 to use as needed as a rescue pain medication. We will plan see her back for a clinical check in 1 month. RAMIN HUGGINS MD Dictated by RAMIN HUGGINS MD 06/29/2015 10:41:30 Transcribed on 06/30/2015 06:06:04 by rajinder job# [id number] Confirmation #: [id number] cc: DUTCH VALENCIA DO documented in this encounter Plan of Treatment +--------+---------+ + + + | Date | Type | Specialty | Care Team | Description | +--------+---------+ + + + | 07/22/ | Office | Orthopedic Surgery | Ramin Huggins | | | 2019 | Visit | | MD Lisa [facility] [place] | | | | | | [place] | | | | | | [phone] | | | | | | | | +--------+---------+ + + + documented as of this encounter Visit Diagnoses + + | Diagnosis | + + | S/P orthopedic surgery, follow-up exam - Primary Follow-up examination, following | | other surgery | + + documented in this encounter
--- OUTSIDE RECORDS SUMMARY | ~2019-07-02 | XMS | Encounter Summary ---
Demographics + + + | Address | [address] | | | [place] [address] | + + + | Home Phone | | + + + | Preferred Language | Unknown | + + + | Marital Status | | + + + | Jewish Affiliation | 1076 | + + + | Race | Unknown | + + + | Ethnic Group | Unknown | + + + Author + + + | Author | [facility] | | | and Primo | + + + | Organization | [facility] | | | [...] [place], [place] | | | | | [address] | | + + + + + | Dalton Fernandez | ECON | Unknown | | + + + + + | Juana Fernandez | ECON | Unknown | | + + + + + Care Team Providers + +------+ + | Care Supervisor Pre Wave Name | Role | Phone | + +------+ + | Dutch Rodriguez DO | PCP | | + +------+ + Encounter Details +--------+ + + + + | Date | Type | Department | Care Team | Description | +--------+ + + + + | 06/10/ | Hospital | [facility] | Douglas Nuñez MD | | | 2013 | Encounter | MED CTR XRAY [address] | [address] | | | | | [address] | [place] [address] | | | | | [place] [address] | [phone] | | | | | [phone] | | | +--------+ + + + [...] | | | | | | [place] | | | | | | [address] | | | | | | | [...] + | MISCELLANEOUS LAB | | | [phone] | + +---------+ + + | MISCELANIOUS LAB | | | [phone] | + +---------+ + + documented in this encounter Visit Diagnoses Not on filedocumented in this encounter"
--- OUTSIDE RECORDS SUMMARY | ~2019-07-02 | XMS | Encounter Summary ---
Demographics + + + | Address | [address] | | | [place] [address] | + + + | Home Phone | | + + + | Preferred Language | Unknown | + + + | Marital Status | | + + + | Jew Affiliation | 1076 | + + + | Race | Unknown | + + + | Ethnic Group | Unknown | + + + Author + + + | Author | [facility] | | | and Primo | + + + | Organization | [facility] | | | and [...] [place], [place] | | | | | [address] | | + + + + + | Dalton Fernandez | ECON | Unknown | | + + + + + | Juana Fernandez | ECON | Unknown | | + + + + + Care Team Providers + +------+ + | Care Departmental Shipping Clerk Name | Role | Phone | [...] [address] | | | | | [facility] | [place] [address] | | | | | [place] | [phone] | | | | | [address] | | | | | | [phone] | | | +--------+ + + + [...]
--- OUTSIDE RECORDS SUMMARY | ~2019-07-02 | XMS | Encounter Summary ---
Demographics + + + | Address | [address] | | | [place] [address] | + + + | Home Phone [...] | Author | [facility] | | | and Primo | + + + | Organization | [facility] | | | and [...] [place], [place] | | | | | [address] | | + + + + + | Dalton Fernandez | ECON | Unknown | | + + + + + | Juana Fernandez | ECON | Unknown | | + + + + + Care Team Providers + +------+ + | Care Electrocardiograph Technician Name | Role | Phone | [...] + + | 06/01/ | Telephone | [facility] | [facility], | Hospital Follow-up | | 2014 | | MED CTR PHARMACY | Trinh Morton | | | | | [address] | [address] | | | | | [place] [address] | [place] | | | | | [phone] | [address] | | | | | | | [...]
--- OUTSIDE RECORDS SUMMARY | ~2019-07-02 | XMS | Encounter Summary ---
Demographics + + + | Address | [address] | | | [place] [address] | + + + | Home Phone [...] | Author | [facility] | | | and Primo | + + + | Organization | [facility] | | | and [place] [...] [place], [place] | | | | | [address] | | + + + + + | Dalton Fernandez | ECON | Unknown | | + + + + + | Juana Fernandez | ECON | Unknown | | + + + + + Care Team Providers + +------+ + | Care Electric Motorman Name | Role | Phone | + +------+ + | Dutch Rodriguez DO | PCP | | + +------+ + Encounter Details +--------+ + + + + | Date | Type | Department | Care Team | Description | +--------+ + + + + | 05/04/ | Hospital | [facility] | Ramin Bess | Pre-op testing | | 2015 | Encounter | MED CTR LABORATORY | MD Lisa [address] [facility] | | | | | [address] | [place] | | | | | [place] | [address] | | | | | [address] | | | | | | [phone] | | | +--------+ + + + [...] [place] | | | | | | [address] | | | | | | | [...] + + + + | Color | Bayard (A) | Light Yellow, | [facility] | [...] - 1.030 | [facility] | | | [place] | | | [facility] | | [...] [address] | [place] | [phone] | | [facility] | | [address] | | | - LABORATORY | | [...] | mL/min/1.73m2 | [facility] | | | [facility] | RATE,ESTIMATED | | MEDICAL | | | | mL/min/1.62b2Lgvo than | | CENTER - | | [...] | 9.3 | 8.3 - 10.5 | [place] | | | | | mg/dL | [facility] | | | | | | MEDICAL | | | | | | CENTER - | | | | | | LABORATORY | | + + + + + + | Albumin | 3.8 | 3.2 - 5.0 g/dL | [place] | | | | | | [facility] [...] + + + + + | [facility] | [address] | [place] | [phone] | | [facility] | | [address] | | | - LABORATORY | | [...] [address] | [place] | [phone] | | [facility] | | [address] | | | - LABORATORY | | | | + + + + + documented in this encounter Visit Diagnoses + + | Diagnosis | + + | Pre-op testing Preoperative examination, unspecified | + + documented in this encounter"
--- OUTSIDE RECORDS SUMMARY | ~2019-07-02 | XMS | Encounter Summary ---
Demographics + + + | Address | [address] | | | [place] [address] | + + + | Home Phone | | + + + | Preferred Language | Unknown | + + + | Marital Status | | + + + | Quaker Affiliation | 1076 | + + + | Race | Unknown | + + + | Ethnic Group | Unknown | + + + Author + + + | Author | [facility] | | | and Primo | + + + | Organization | [facility] | | [...] [place] | | | | | [address] | | + + + + + | Dalton Fernandez | ECON | Unknown | | + + + + + | Juana Fernandez | ECON | Unknown | | + + + + + Care Team Providers + +------+ + | Care Digital Color Press Operator Name | Role | Phone | [...] [address]VE | | | | | [facility] | [place] [address] | | | | | [place] | [phone] | | | | | [address] | | | | | | [phone] | | | +--------+ + + + [...] [place] | | | | | | [address] | | | | | | | | +--------+---------+ + + + documented as of this encounter Visit Diagnoses Not on filedocumented in this encounter"
--- OUTSIDE RECORDS SUMMARY | ~2019-07-02 | XMS | Encounter Summary ---
Demographics + + + | Address | [address] | | | [place] [address] | + + + | Home Phone [...] Author | [facility] | | | and Primo | + + + | Organization | [facility] | | | and [...] [place], [place] | | | | | [address] | | + + + + + | Dalton Koroma | ECON | Unknown | | + + + + + | Juana Koroma | ECON | Unknown | | + + + + + Care Team Providers + +------+ + | Care Plant Changer Name | Role | Phone | + [...] + + | 12/26/ | Office | [facility] [place] | Ramin Huggins | S/P orthopedic | | 2017 | Visit | ORTHOPEDIC SURGERY | MD Swathi Gonzalez | surgery, follow-up | | | | [address] [facility] | [place] | exam (Primary Dx) | | | | [place] | [address] | | | | | [address] | | | | | | [phone] | | | +--------+---------+ + + + [...] MD - 12/26/2016 6:50 PM PDT [facility] ORTHOPEDIC SURGER Y [address] [facility] [address] OFFICE NOTE RAMIN HUGGINS MD Patient: MYRIAM KOROMA Admitting: MR #: [id number] LOC: PT TYPE: Adm Date: 12/26/2016 : [...] Transcribed on 12/27/2016 16:34:04 by nimesh job# [id number] Confirmation #: [id number] cc: DUTCH VALENCIA DO Ramin Ureña MD - 12/26/2016 11:30 AM PDTSee soap note [id number].Electronically si gned by Ramin Huggins MD at 12/26/2016 6:50 PM PDTdocumented in this encounter Plan of Treatment +--------+---------+ + + + | Date | Type | Specialty | Care Team | Description | +--------+---------+ + + + | 07/22/ | Office | Orthopedic Surgery | Ramin Huggins | | | 2019 | Visit | | MD Lisa [address] [place] [address] | | | | | | [place] | | | | | | [id number] | | | | | | | | +--------+---------+ + + + documented as of this encounter Visit Diagnoses + + | Diagnosis | + + | S/P orthopedic surgery, follow-up exam - Primary Follow-up examination, following | | other surgery | + + documented in this encounter
--- OUTSIDE RECORDS SUMMARY | ~2019-07-02 | XMS | Encounter Summary ---
Demographics + + + | Address | [address] | | | [place] [address] | + + + | Home Phone [...] | Author | [facility] | | | and Primo | + + + | Organization | [facility] | | [...] [place], [place] | | | | | [address] | | + + + + + | Dalton Fernandez | ECON | Unknown | | + + + + + | Juana Fernandez | ECON | Unknown | | + + + + + Care Team Providers + +------+ + | Care Information Systems Security Developer Name | Role | Phone | + +------+ + | Dutch Rodriguez DO | PCP | | + +------+ + Encounter Details +--------+ + + + + | Date | Type | Department | Care Team | Description | +--------+ + + + + | 06/10/ | [facility] | [facility] | Douglas Nuñez MD | Gastric reflux; | | 2013 | Encounter | MED CTR | [address] | Migraine; | | | | ELECTRODIAGNOSTICS | [place] [address] | Preoperative | | | | [address] | [phone] | clearance | | | | [place] [address] | | | | | | [phone] | | | +--------+ + + + [...] [place] | | | | | | [address] | | | | | | | | +--------+---------+ + + + documented as of this encounter Procedures + +--------+ + + + | Procedure Name | Priori | Date/Time | Associated Diagnosis | Comments | | | ty | | | | + +--------+ + + + | ECG 12 LEAD | Routin | 06/11/2014 | Gastric reflux | Results for this | | | e | 7:29 AM | Migraine | procedure are in the | | | | PST | Preoperative | results section. | | | | | clearance | | + +--------+ + + + documented in this encounter Results ECG 12 lead (06/11/2014 7:29 AM PST) + + + | Narrative | Performed At | + + + | Segun Miranda MD 06/11/2014 7:29 Adult ECG Report | | | Name: Mike Fernandez Age: 63 y.o. Gender: female 06/10/14 | | | at 10:21 Narrative Interpretation: Sinus rhythm. First degree AV | | | block. Normal axis. | | + + + + + | Procedure Note | + + | Segun Miranda MD - 06/11/2014 7:28 AM PST Adult ECG Report | | | | Name: Mike Fernandez | | Age: 63 y.o. | | Gender: female | | | | 06/10/14 at 10:21 | | Narrative Interpretation: Sinus rhythm. First degree AV block. Normal axis. | + + documented in this encounter Visit Diagnoses + + | Diagnosis | + + | Gastric reflux Esophageal reflux | + + | Migraine Migraine, unspecified, without mention of intractable migraine without | | mention of status migrainosus | + + | Preoperative clearance Preoperative examination, unspecified | + + documented in this encounter"
--- OUTSIDE RECORDS SUMMARY | ~2019-07-02 | XMS | Encounter Summary ---
Demographics + + + | Address | [address] | | | [place] [address] | + + + | Home Phone [...] + | Author | [facility] | | | and Primo | + + + | Organization | [facility] [...] [place], [place] | | | | | [address] | | + + + + + | Dalton Fernandez | ECON | Unknown | | + + + + + | Juana Fernandez | ECON | Unknown | | + + + + + Care Team Providers + +------+ + | Care Newscast Producer Name | Role | Phone | + [...] Primary | Ramin Gonzalez, | [address] | | | | | localized | MD [address] | [place], | | | | | osteoarthros | [address] | [place] | | | | | is, lower | [place], | [address] | | | | | leg, right | [place] [address] | Phone: | | | | | Fitting and | Phone: | [phone] | | | | | adjustment | [phone] | Fax: | | | | | of | Fax: | [phone] | | | | | unspecified | [phone] | | | | | | prosthetic [...] Primary | Ramin L, | [address] | | | | | localized | [address] | [place], | | | | | osteoarthros | [address] | [place] | | | | | is, lower | [place], | [address] | | | | | leg, right | [place] [address] | Phone: | | | | | Fitting and | Phone: | [phone] | | | | | adjustment | [phone] | Fax: | | | | | of | Fax: | [phone] | | | | | unspecified | [phone] | | | | | | prosthetic [...] + + | 04/07/ | Hospital | [facility] | Ramin Bess | Primary localized | | 2015 | Encounter | MED CTR MRI [address] | MD Lisa [address] [facility] | osteoarthrosis, | | | | [address] [place], | [place], [place] | lower leg, right; | | | | [place] [address] | [address] | Fitting and | | | | [phone] | | adjustment of | | | [...] 2018 | Visit | | MD Lisa [address] [place] [address] | | | | | | [place] | | | | | | [address] | | | | | | | [...] KNEE PAIN PROSTHESIS FITTING IMPRESSION - | [facility] | | Limited MR images of the right knee are performed per prosthesis [facility] | | fitting protocol. No diagnostic [...] ST. | [address] | [place] | [phone] | | [facility] | | [address] | | | - IMAGING | | | | + + + + + documented in this encounter Visit Diagnoses + + | Diagnosis | + + | Primary localized osteoarthrosis, lower leg, right | + + | Fitting and adjustment of unspecified prosthetic device | + + documented in this encounter"
--- OUTSIDE RECORDS SUMMARY | ~2019-07-02 | XMS | Encounter Summary ---
Demographics + + + | Address | [address] | | | [place] [address] | + + + | Home Phone [...] | Author | [facility] | | | and Primo | + + + | Organization | [facility] | | | and [...] [place], [place] | | | | | [address] | | + + + + + | Dalton Fernandez | ECON | Unknown | | + + + + + | Juana Fernandez | ECON | Unknown | | + + + + + Care Team Providers + +------+ + | Care Rig Manager Name | Role | Phone | [...] + + | 04/13/ | Office | [facility] | Zachery Soria | Status post total | | 2016 | Visit | ORTHOPEDIC SURGERY | [address]ILIANA [address] | knee replacement, | | | | [address] [facility] | Josué Young | left (Primary Dx) | | | | [place] | [place] [address] | | | | | [address] | [phone] | | | | | [phone] | | | +--------+---------+ + + + [...] been up to 125 of flexion at [facility] in [facility]. She is only taking anti-inflammatory's as necessary [...] for pain. Continue with physical therapy in [facility]; she has 5 r emaining visits left. I'll have her follow-up in approximately 4 weeks for reevaluation. B. Patient is advised that if they have any questions, comments or concerns to contact our office. Electronically signed by: Zachery Soria PA-C 04/13/2016 13:50 This note was dictated using the Traction voice recognition system. Minor errors in grammar may have occurred. documented in th is encounter Plan of Treatment +--------+---------+ + + + | Date | Type | Specialty | Care Team | Description | +--------+---------+ + + + | 07/22/ | Office | Orthopedic Surgery | Ramin Bess | | | 2019 | Visit | | MD Lisa [address] [place] [address] | | | | | | [place] [...]
--- OUTSIDE RECORDS SUMMARY | ~2019-07-02 | XMS | Encounter Summary ---
Demographics + + + | Address | [address] | | | [place] [address] | + + + | Home Phone | | + + + | Preferred Language | Unknown | + + + | Marital Status | | + + + | Judaism Affiliation | Unknown | + + + | Race | Unknown | + + + | Ethnic Group | Other Race | + + + Author + + + | Author | [facility] | + + + | Organization | [facility] | + + + | Address | Unknown | + + + | Phone | Unavailable | + + + Support + + +---------+ + | Name | Relationship | Address | Phone | + + +---------+ + | Pt None Per | ECON | Unknown | Unavailable | + + +---------+ + Care Team Providers + +------+ + | Care Employee Development Specialist Name | Role | Phone | [...] Pharmacy | | | | | | [address] | | | | | | [place], | | | | | | [place] [address] | | | | | | [phone] | | | +--------+ + + + [...]
--- OUTSIDE RECORDS SUMMARY | ~2019-07-02 | XMS | Encounter Summary ---
Demographics + + + | Address | [address] | | | [place] [address] | + + + | Home Phone [...] | Author | [facility] | | | and Primo | + + + | Organization | [facility] | | | and [...] [place], [place] | | | | | [address] | | + + + + + | Dalton Fernandez | ECON | Unknown | | + + + + + | Juana Fernandez | ECON | Unknown | | + + + + + Care Team Providers + +------+ + | Care Veneer Clipper Name | Role | Phone | + [...] | | | | | | | [facility] | | | | | | [...] | | | | | [address] | [place], [place] | | | | | [place], [place] | [address] | | | | | [address] | | | | | | [phone] | | | +--------+ + + + [...] +----+---+ + + | | 1 | [place] | | | | 4 | 43-degrees | | | | 3 | | | | | 6 | | | +----+---+ + + | | 1 | [place] off | | | | 7 | [...] video scope | | | | | (Paa-Ko 3); Laryngoscope Blade | | | | [...]
--- OUTSIDE RECORDS SUMMARY | ~2019-07-02 | XMS | Encounter Summary ---
Demographics + + + | Address | [address] | | | [place] [address] | + + + | Home Phone [...] Author | [facility] | | | and Primo | + + + | Organization | [facility] | [...] [place], [place] | | | | | [address] | | + + + + + | Dalton Fernandez | ECON | Unknown | | + + + + + | Juana Fernandez | ECON | Unknown | | + + + + + Care Team Providers + +------+ + | Care Funding Coordinator Name | Role | Phone | + +------+ + | Dutch Rodriguez DO | PCP | | + +------+ + Encounter Details +--------+ + + + + | Date | Type | Department | Care Team | Description | +--------+ + + + + | 01/01/ | Hospital | [facility] | Ramin Bess | S/P ORIF (open | | 2018 | Encounter | MED CTR [facility]IAN XRAY | MD Lisa [address] [facility] | reduction internal | | | | [address] | [place] | fixation) fracture | | | | [place] | [id number] | | | | | [address] | | | | | | [phone] | | | +--------+ + + + [...] [place] | | | | | | [address] | | | | | | | [...]
--- OUTSIDE RECORDS SUMMARY | ~2019-07-02 | XMS | Encounter Summary ---
Demographics + + + | Address | [address] | | | [place] [address] | + + + | Home Phone [...] | Author | [facility] | | | and Primo | + + + | Organization | [facility] | | | and [...] [place], [place] | | | | | [address] | | + + + + + | Dalton Fernandez | ECON | Unknown | | + + + + + | Juana Fernandez | ECON | Unknown | | + + + + + Care Team Providers + +------+ + | Care Senior Web Developer Name | Role | Phone | + +------+ + | Dutch Rodriguez DO | PCP | | + +------+ + Encounter Details +--------+ + + + + | Date | Type | Department | Care Team | Description | +--------+ + + + + | 01/24/ | Orders Only | [facility] | Ramin Bess | Closed left | | 2016 | | ORTHOPEDIC SURGERY | MD Lisa [address] [place] [address] | subtrochanteric | | | | [address] [place] [address] | [place] | femur fracture, | | | | [place] | [address] | initial encounter | | | | [address] | | ([facility]) (Primary Dx); | | | | [phone] | | Left knee pain, | | [...] 2018 | Visit | | MD Lisa [address] [place] [address] | | | | | | [place] | | | | | | [address] | | | | | | | [...] Oleksandr WKaty Connell. | [place] | [phone] | | [facility] | | [address] | | | - IMAGING | | | | + + + + + documented in this encounter Visit Diagnoses + + | Diagnosis | + + | Closed left subtrochanteric femur fracture, initial encounter (HCC) - Primary | + + | Left knee pain, unspecified chronicity | + + documented in this encounter"
--- OUTSIDE RECORDS SUMMARY | ~2019-07-02 | XMS | Encounter Summary ---
Demographics + + + | Address | [address] | | | [place] [address] | + + + | Home Phone | | + + + | Preferred Language | Unknown | + + + | Marital Status | | + + + | Orthodox Affiliation | 1076 | + + + | Race | Unknown | + + + | Ethnic Group | Unknown | + + + Author + + + | Author | [facility] | | | and Primo | + + + | Organization | [facility] | [...] [place], [place] | | | | | [address] | | + + + + + | Dalton Fernandez | ECON | Unknown | | + + + + + | Juana Fernandez | ECON | Unknown | | + + + + + Care Team Providers + +------+ + | Care Emergency Medical Service Coordinator Name | Role | Phone | + +------+ + | Dutch Rodriguez DO | PCP | | + +------+ + Encounter Details +--------+ + + + + | Date | Type | Department | Care Team | Description | +--------+ + + + + | 12/08/ | [facility] | [facility] | Ramin Bess | Bilateral knee pain | | 2015 | Encounter | MED CTR [facility] X[facility] | MD Lisa [address] [facility] | | | | | [address] | [place] | | | | | [place] | [address] | | | | | [address] | | | | | | [phone] | | | +--------+ + + + [...] 2019 | Visit | | MD Lisa [employer] [place] | | | | | | [place] | | | | | | [address] | | | | | | | [...] + + | Performing | Address | City[facility]State[facility] | Phone Number | | Organization | | | | + + + + + | [facility] | [address] | [place] | [phone] | | [facility] | | [address] | | | - IMAGING | | | | + + + + + documented in this encounter Visit Diagnoses + + | Diagnosis | + + | Bilateral knee pain Pain in joint, lower leg | + + documented in this encounter"
--- OUTSIDE RECORDS SUMMARY | ~2019-07-02 | XMS | Encounter Summary ---
Demographics + + + | Address | [address] | | | [place] [address] | + + + | Home Phone [...] + | Author | [facility] | | | and Primo | + + + | Organization | [facility] | | | and [place] [...] [place], [place] | | | | | [address] | | + + + + + | Dalton Fernandez | ECON | Unknown | | + + + + + | Juana Fernandez | ECON | Unknown | | + + + + + Care Team Providers + +------+ + | Care Rn Lab Name | Role | Phone | + [...] | | | | | | | [place] [facility] | | | | | | [...] Arthroplasty | | | | [address] | [place], [place] | | | | | [place], [place] | [address] | | | | | [address] | | | | | | [phone] | | | +--------+---------+ + + + [...] go straight to outpatient therapy at the [facility] in [place] and work with Che , the PT [...] signed by: Chris French, 02/12/2016 8:34 [facility] documented in this en counter Discharge [...] home tomorrow. Has Xarelto at home. Needs Bellamy . Zachery Odonnell PA-C - 02/2016 1:32 [...] 13:32 This note was dictated using the Kuldat voice recognition system. Minor errors in grammar [...] [place] | | | | | | [address] | | | | | | | [...] + | [facility] | [address] | [place] | [phone] | | [facility] | | [address] | | | - LABORATORY | | [...] | mL/min/1.73m2 | [facility]ACEE | | | [place]ING[place]AN | RATE,ESTIMATED | | MEDICAL | | | | mL/min/1.79r1Ocmw than | | CENTER - | | [...] ST. | [address] | [place] | [phone] | | [facility] | | [address] | | | - LABORATORY | | [...]
--- OUTSIDE RECORDS SUMMARY | ~2019-07-02 | XMS | Encounter Summary ---
Demographics + + + | Address | [address] | | | [place] [address] | + + + | Home Phone [...] | Author | [facility] | | | and Primo | + + + | Organization | [facility] | | [...] [place] | | | | | [address] | | + + + + + | Dalton Fernandez | ECON | Unknown | | + + + + + | Juana Fernandez | ECON | Unknown | | + + + + + Care Team Providers + +------+ + | Care Plastic Mould Maker Name | Role | Phone | [...] | | [address] | [place] [address] | | | | | [place] | [phone] | | | | | [address] | | | | | | [phone] | | | +--------+ + + + [...] 2019 | Visit | | MD Lisa [address] [place] [address] | | | | | | [place] | | | | | | [address] | | | | | | | [...] [facility] | LAB | | [facility] FINDINGS: AP, lateral bending and flexion/extension [...] + | MISCELLANEOUS LAB | | | [phone] | + +---------+ + + | MISCELANIOUS LAB | | | [phone] | + +---------+ + + documented in this encounter Visit Diagnoses + + | Diagnosis | + + | Back pain - Primary Backache, unspecified | + + documented in this encounter"
--- OUTSIDE RECORDS SUMMARY | ~2019-07-02 | XMS | Encounter Summary ---
Demographics + + + | Address | [address] | | | [place] [address] | + + + | Home Phone | | + + + | Preferred Language | Unknown | + + + | Marital Status | | + + + | Adventism Affiliation | 1076 | + + + | Race | Unknown | + + + | Ethnic Group | Unknown | + + + Author + + + | Author | [facility] | | | and Primo | + + + | Organization | [facility] | | | and [place] [...] [place], [place] | | | | | [address] | | + + + + + | Dalton Fernandez | ECON | Unknown | | + + + + + | Juana Fernandez | ECON | Unknown | | + + + + + Care Team Providers + +------+ + | Care Paint Spray Tender Name | Role | Phone | [...] AVE | | | | | [address] [facility] [address] | [place] [address] | | | | | [place] | [phone] | | | | | [address] | | | | | | [phone] | | | +--------+ + + + [...] [place] | | | | | | [address] | | | | | | | | +--------+---------+ + + + documented as of this encounter Visit Diagnoses Not on filedocumented in this encounter"
--- OUTSIDE RECORDS SUMMARY | ~2019-07-02 | XMS | Encounter Summary ---
Demographics + + + | Address | [address] | | | [place] [address] | + + + | Home Phone | | + + + | Preferred Language | Unknown | + + + | Marital Status | | + + + | Worship Affiliation | Unknown | + + + | Race | Unknown | + + + | Ethnic Group | Other Race | + + + Author + + + | Author | [facility] | + + + | Organization | [facility] | + + + | Address | Unknown | + + + | Phone | Unavailable | + + + Support + + +---------+ + | Name | Relationship | Address | Phone | + + +---------+ + | Pt None Per | ECON | Unknown | Unavailable | + + +---------+ + Care Team Providers + +------+ + | Care Dispatcher Chief Oil Name | Role | Phone | + +------+ + | Jennifer Dutch | PCP | | + +------+ + Encounter Details +--------+ + + + + | Date | Type | Department | Care Team | Description | +--------+ + + + + | 03/09/ | Pharmacy | Outpatient Retail | | | | 2016 | Visit | [facility] | | | | | | [address] | | | | | | [place], | | | | | | [place] [address] | | | | | | [phone] | | | +--------+ + + + [...]
--- OUTSIDE RECORDS SUMMARY | ~2019-07-02 | XMS | Encounter Summary ---
Demographics + + + | Address | [address] | | | [place] [address] | + + + | Home Phone | | + + + | Preferred Language | Unknown | + + + | Marital Status | | + + + | Sabianism Affiliation | 1076 | + + + | Race | Unknown | + + + | Ethnic Group | Unknown | + + + Author + + + | Author | [facility] | | | and Primo | + + + | Organization | [facility] | | [...] [place], [place] | | | | | [address] | | + + + + + | Dalton Fernandez | ECON | Unknown | | + + + + + | Juana Fernandez | ECON | Unknown | | + + + + + Care Team Providers + +------+ + | Care Voice Studies Director Name | Role | Phone | [...] + + | 01/14/ | Office | [facility] | Zachery Soria | S/P orthopedic | | 2018 | Visit | ORTHOPEDIC SURGERY | [address] | surgery, follow-up | | | | [address] [facility] | [facility] [place] | exam (Primary Dx); | | | | [place] | [place] [address] | Sprain of collateral | | | | [address] | [phone] | ligament of left | | | | [phone] | | knee, initial | | | [...] Date: 01/14/2018 Age: 67 y.o. PCP: Dutch Rodriguez DO Chief Complaint Patient presents with Follow-up ORIF IM femoral DOS 10/23/17 SUBJECTIVE: Returns today with concerns of the loose screw at the left knee will be performed ORIF with retrograde intramedullary femoral rodding on 10/23/16. She received; Dr. Ramin Bess when this was identified. She describes [...] 16:48 This note was dictated using the SoundHound voice recognition system. Minor errors in grammar may have occurred. documented in t his encounter Plan of Treatment +--------+---------+ + + + | Date | Type | Specialty | Care Team | Description | +--------+---------+ + + + | 07/22/ | Office | Orthopedic Surgery | Ramin Bess | | | 2018 | Visit | | MD Lisa [facility] [place] | | | | | | [place] | | | | | | [phone] | | | | | | | [...]
--- OUTSIDE RECORDS SUMMARY | ~2019-07-02 | XMS | Encounter Summary ---
Demographics + + + | Address | [address] | | | [place] [address] | + + + | Home Phone | | + + + | Preferred Language | Unknown | + + + | Marital Status | | + + + | Buddhism Affiliation | 1076 | + + + | Race | Unknown | + + + | Ethnic Group | Unknown | + + + Author + + + | Author | [facility] | | | and Primo | + + + | Organization | [facility] | | [...] [place], [place] | | | | | [address] | | + + + + + | Dalton Koroma | ECON | Unknown | | + + + + + | Juana Kormoa | ECON | Unknown | | + + + + + Care Team Providers + +------+ + | Care Appeals Reviewer Veteran Name | Role | Phone | + [...] + + | 09/27/ | Office | [facility] | Ramin Huggins | Primary | | 2015 | Visit | ORTHOPEDIC SURGERY | MD Lisa [address] [place] [address] | osteoarthritis of | | | | [address] [place] [address] | [place] | left knee (Primary | | | | [place] | [address] | Dx) | | | | [address] | | | | | | [phone] | | | +--------+---------+ + + + [...] - 09/27/2015 2:40 PM PSTSee soap note [id number].Electronically sign ed by Ramin Huggins MD at 09/27/2015 2:40 PM PSTRamin Huggins MD - 6 2:39 PM PST [facility] ORTHOPEDIC SURGERY [address] [place] [address] OFFICE NOTE RAMIN HUGGINS MD Patient: ANA KOROMA Admitting: MR #: [id number] LOC: PT TYPE: Adm Date: 09/27/2015 : [...] Transcribed on 09/28/2015 06:59:22 by rene job# [id number] Confirmation #: [id number] cc: DUTCH VALENCIA DO documented in this encounter Plan of Treatment +--------+---------+ + + + | Date | Type | Specialty | Care Team | Description | +--------+---------+ + + + | 07/22/ | Office | Orthopedic Surgery | Ramin Huggins | | | 2018 | Visit | | MD Swathi Gonzalez | | | | | | [place] | | | | | | [address] | | | | | | | | +--------+---------+ + + + documented as of this encounter Visit Diagnoses + + | Diagnosis | + + | Primary osteoarthritis of left knee - Primary Primary localized osteoarthrosis, lower | | leg | + + documented in this encounter
--- OUTSIDE RECORDS SUMMARY | ~2019-07-02 | XMS | Encounter Summary ---
Demographics + + + | Address | [address] | | | [place] [address] | + + + | Home Phone | | + + + | Preferred Language | Unknown | + + + | Marital Status | | + + + | Latter-Day Affiliation | 1076 | + + + | Race | Unknown | + + + | Ethnic Group | Unknown | + + + Author + + + | Author | [facility] | | | and Primo | + + + | Organization | [facility] | | | and [place] | [...] [place], [place] | | | | | [address] | | + + + + + | Dalton Fernandez | ECON | Unknown | | + + + + + | Juana Fernandez | ECON | Unknown | | + + + + + Care Team Providers + +------+ + | Care Pulping Machine Operator Name | Role | Phone [...] Primary | Ramin Gonzalez, | [address] | | | | | localized | MD [address] | [place], | | | | | osteoarthros | [address] | [place] | | | | | is, lower | [place], | [address] | | | | | leg, right | [place] [address] | Phone: | | | | | Fitting and | Phone: | [phone] | | | | | adjustment | [phone] | Fax: | | | | | of | Fax: | [phone] | | | | | unspecified | [phone] | | | | | | prosthetic [...] | Telephone | [facility] | Ramin Bess | Procedure | | 2014 | | ORTHOPEDIC SURGERY | MD Lisa [address] [facility] | | | | | [address] [facility] | [place], [place] | | | | | [place], [place] | [address] | | | | | [address] | | | | | | [phone] | | | +--------+ + + + [...] | | MD Swathi Gonzalez [facility] | | | | | | [place] | | | | | | [address] | | | | | | | [...] right knee are performed per prosthesis | [facility] | | fitting protocol. No diagnostic evaluation [...] ST. | [address] | [place] | [phone] | | [facility] | | [address] | | | - IMAGING | | | | + + + + + documented in this encounter Visit Diagnoses + + | Diagnosis | + + | Primary localized osteoarthrosis, lower leg, right - Primary | + + | Fitting and adjustment of unspecified prosthetic device | + + documented in this encounter"
--- OUTSIDE RECORDS SUMMARY | ~2019-07-02 | XMS | Encounter Summary ---
Demographics + + + | Address | [address] | | | [place] [address] | + + + | Home Phone [...] + | Author | [facility] | | | and Primo | + + + | Organization | [facility] | | | and [...] [place], [place] | | | | | [address] | | + + + + + | Dalton Fernandez | ECON | Unknown | | + + + + + | Juana Fernandez | ECON | Unknown | | + + + + + Care Team Providers + +------+ + | Care Rehab Aide Name | Role | Phone | + +------+ + | Dutch Rodriguez DO | PCP | | + +------+ + Encounter Details +--------+ + + + + | Date | Type | Department | Care Team | Description | +--------+ + + + + | 06/28/ | Orders Only | [facility] | Ramin Bess | S/P orthopedic | | 2014 | | ORTHOPEDIC SURGERY | MD Lisa [address] [place] [address] | surgery, follow-up | | | | [address] [place] [address] | [place] | exam (Primary Dx) | | | | [place] | [id number] | | | | | [address] | | | | | | [phone] | | | +--------+ + + + [...] [place] | | | | | | [address] | | | | | | | | +--------+---------+ + + + documented as of this encounter Visit Diagnoses + + | Diagnosis | + + | S/P orthopedic surgery, follow-up exam - Primary Follow-up examination, following | | other surgery | + + documented in this encounter"
--- OUTSIDE RECORDS SUMMARY | ~2019-07-02 | XMS | Encounter Summary ---
Demographics + + + | Address | [address] | | | [place] [address] | + + + | Home Phone | | + + + | Preferred Language | Unknown | + + + | Marital Status | | + + + | Orthodoxy Affiliation | 1076 | + + + | Race | Unknown | + + + | Ethnic Group | Unknown | + + + Author + + + | Author | [facility] | | | and Primo | + + + | Organization | [facility] | [...] [place], [place] | | | | | [address] | | + + + + + | Dalton Fernandez | ECON | Unknown | | + + + + + | Juana Fernandez | ECON | Unknown | | + + + + + Care Team Providers + +------+ + | Care Building Specialist Name | Role | Phone | [...] Description | +--------+--------+ + + + | 02/19/ | Refill | [facility] | Zachery Soria | Medication Refill | | 2017 | | ORTHOPEDIC SURGERY | [address] | | | | | [address] [facility] | [facility] | | | | | [place] | [place] [address] | | | | | [address] | [phone] | | | | | [phone] | | | +--------+--------+ + + + [...] [place] | | | | | | [address] | | | | | | | | +--------+---------+ + + + documented as of this encounter Visit Diagnoses Not on filedocumented in this encounter"
--- OUTSIDE RECORDS SUMMARY | ~2019-07-02 | XMS | Encounter Summary ---
Demographics + + + | Address | [address] | | | [place] [address] | + + + | Home Phone [...] | Author | [facility] | | | and Primo | + + + | Organization | [facility] | | | and [place] [...] [place], [place] | | | | | [address] | | + + + + + | Dalton Fernandez | ECON | Unknown | | + + + + + | Juana Fernandez | ECON | Unknown | | + + + + + Care Team Providers + +------+ + | Care Sample Worker Name | Role | Phone | [...] + + | 02/19/ | Refill | [facility] | Zachery Soria | Medication Refill | | 2017 | | ORTHOPEDIC SURGERY | [address] | | | | | [address] [facility] | [facility] | | | | | [place] | [place] [address] | | | | | [address] | [phone] | | | | | [phone] | | | +--------+--------+ + + + [...] [place] | | | | | | [address] | | | | | | | | +--------+---------+ + + + documented as of this encounter Visit Diagnoses Not on filedocumented in this encounter"
--- OUTSIDE RECORDS SUMMARY | ~2019-07-02 | XMS | Encounter Summary ---
Demographics + + + | Address | [address] | | | [place] [address] | + + + | Home Phone [...] Author | [facility] | | | and Primo | + + + | Organization | [facility] | | [...] [place], [place] | | | | | [address] | | + + + + + | Dalton Fernandez | ECON | Unknown | | + + + + + | Juana Fernandez | ECON | Unknown | | + + + + + Care Team Providers + +------+ + | Care [place] Smearer Name | Role | Phone | + +------+ + | Dutch Rodriguez DO | PCP | | + +------+ + Encounter Details +--------+ + + + + | Date | Type | Department | Care Team | Description | +--------+ + + + + | 12/08/ | [facility] | [facility] | Ramin Bess | Bilateral knee pain | | 2015 | Encounter | MED CTR [facility] XRAY | MD Lisa [address] [facility] | | | | | [address] [place] | [place] | | | | | [place] | [address] | | | | | [address] | | | | | | [phone] | | | +--------+ + + + [...] 2019 | Visit | | MD Lisa [facility] [place] | | | | | | [place] | | | | | | [id number] | | | | | | | [...] + + | Performing | Address | City[facility] | Phone Number | | Organization | | | | + + + + + | [facility] | [address] | [place] | [phone] | | [facility] | | [address] | | | - IMAGING | | | | + + + + + documented in this encounter Visit Diagnoses + + | Diagnosis | + + | Bilateral knee pain Pain in joint, lower leg | + + documented in this encounter"
--- OUTSIDE RECORDS SUMMARY | ~2019-07-02 | XMS | Encounter Summary ---
Demographics + + + | Address | [address] | | | [place] [address] | + + + | Home Phone [...] | Author | [facility] | | | and Primo | + + + | Organization | [facility] | | | and [place] [...] [place], [place] | | | | | [address] | | + + + + + | Dalton Fernandez | ECON | Unknown | | + + + + + | Juana Fernandez | ECON | Unknown | | + + + + + Care Team Providers + +------+ + | Care Director Of Research Name | Role | Phone | + [...] | MD [address] | [address] | | | | | Hyperreflexi | [address] | [place], | | | | | a | [place] | [place] | | | | | Procedures | [place] [address] | [address] | | | | | MRI Cervical | Phone: | Phone: | | | | | Spine wo | [phone] | [phone] | | | | | Contrast | Fax: | Fax: | | | | | | [phone] | [phone] | +--------+--------+ + + + + Reason [...] | | lumbar | [address] | [place], [place] | | | | | vertebrae, | [place], | [address] | | | | | non-traumati | [place] [address] | Phone: | | | | | c ([facility]) | Phone: | [phone] | | | | | COLLAPSE OF | [phone] | Fax: | | | | | LUMBAR | Fax: | [phone] | | | | | VERTEBRAE | [phone] | | | | | | Procedures | | | | | | | [place] OFFICE | | | | | | [...] + + | 03/13/ | Office | 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 CRANIAL NERVES: Fundoscopic Exam: The optic [...] Intrinsics 5 5 Ulnar Intrinsics 5 5 International Flight Attendant Strength 5 5 Hip Flexion 5 5 [...] 2018 | Visit | | MD Lisa [facility] [place] | | | | | | [place] | | | | | | [id number] | | | | | | | [...]
--- OUTSIDE RECORDS SUMMARY | ~2019-07-02 | XMS | Clinical Summary ---
Demographics + + + | Address | [address] | | | [place] [address] | + + + | Home Phone [...] | Author | [facility] | | | and Primo | + + + | Organization | [facility] | | [...] [place], [place] | | | | | [address] | | + + + + + | Dalton Fernandez | ECON | Unknown | | + + + + + | Juana Fernandez | ECON | Unknown | | + + + + + Care Team Providers + +------+ + | Care Behavior Specialist Name | Role | Phone | [...] 0 | | | Activ | | Ahtjhrz-Umktcrdqv-Js | mouth Daily. | | | | [...] [place] | | | | | | [address] | | | | | | | [...] | | 06/05/ | 00-111 | | [id number]: Qty: 1 on | c | Knee | ZIMM | | 2019 | 2-140- | | 02/09/2016 by Shahriar, | | | | | | 01 / | | Ramin Gonzalez MD at [facility] | | | | | | /[id number] | | [facility] | | | | | | 472 | | CENTER | | | | | | | + +--------+--------+ +--------+--------+--------+ | Sharad Bone Palacos-R 40gm - | Generi | Left: | CHRISTIANE - | | 06/05/ | 00-111 | | [id number]: Qty: 1 on | c | Knee | ZIMM | | 2019 | 2-140- | | 02/09/2016 by Shahriar, | | | | | | 01 / | | Ramin Gonzalez MD at [facility] | | | | | | /[id number] | | [facility] | | | | | | 472 | | CENTER | | | | | | | + +--------+--------+ +--------+--------+--------+ | Imp Knee Tib 5deg Lt Seb - | Generi | Left: | CHRISTIANE - | | 12/03/ | 42-532 | | [id number]: Qty: 1 on | c | Knee | ZIMM | | 2025 | 0-071- | | 02/09/2016 by Shahriar, | | | | | | 01 / | | Ramin Gonzalez MD at [facility] | | | | | | /[id number] | | [facility] | | | | | | 826 | | CENTER | | | | | | | + +--------+--------+ +--------+--------+--------+ | Imp Knee Ptela Polyeth 35mm - | Generi | Left: | CHRISTIANE - | | 12/03/ | 42-540 | | [id number]: Qty: 1 | c | Knee | ZIMM | | 2023 | 0-000- | | on 02/09/2016 by Shahriar, | | | | | | 35 / | | Ramin Gonzalez MD at [facility] | | | | | | /[id number] | | [facility] | | | | | | 861 | | CENTER | | | | | | | + +--------+--------+ +--------+--------+--------+ | Imp Knee Fem Stem Cr Lt 0 Sz6 | Generi | Left: | CHRISTIANE - | | 02/02/ | 42-502 | | - [id number]: Qty: 1 | c | Knee | ZIMM | | 2024 | 6-060- | | on 02/09/2016 by Shahriar, | | | | | | 01 / | | Ramin Gonzalez MD at [facility] | | | | | | /[address] | | [facility] | | | | | | 147 | | CENTER | | | | | | | + +--------+--------+ +--------+--------+--------+ | Nail Fem Scn T2 [id number] - | Nail | Left: | JUDY | | 03/05/ | 1826-1 | | [id number]: Qty: 1 on | | Femur | MEDICAL - | | 2019 | 332S / | | 10/23/2016 by Shahriar, | | | STRY | | | | | Ramin Gonzalez MD at [facility] | | | | | | /[id number] | | [facility] | | | | | | 42 | | CENTER | | | | | | | + +--------+--------+ +--------+--------+--------+ | Screw Jeimy F/T T2 Ti 5x60mm - | Screw | Left: | JUDY | | 05/05/ | 1896-5 | | [id number]: Qty: 1 on | | Femur | MEDICAL - | | 2019 | 060S / | | 10/23/2016 by Shahriar, | | | STRY | | | | | Ramin Gonzalez MD at [facility] | | | | | | /[id number] | | [facility] | | | | | | 29 | | CENTER | | | | | | | + +--------+--------+ +--------+--------+--------+ | Screw Jeimy F/T T2 Ti 5x70mm - | Screw | Left: | JUDY | | 07/05/ | 1896-5 | | [id number]: Qty: 1 on | | Femur | MEDICAL - | | 2020 | 070S / | | 10/23/2016 by Shahriar, | | | TONY | | | | | Ramin Gonzalez MD at [facility] | | | | | | /[id number] | | [facility] | | | | | | 82 | | CENTER | | | | | | | + +--------+--------+ +--------+--------+--------+ | Screw Jeimy F/T T2 Ti 5x75mm - | Screw | Left: | JUDY | | 01/03/ | 1896-5 | | [id number]: Qty: 1 on | | Femur | MEDICAL - | | 2020 | 075S / | | 10/23/2016 by Shahriar, | | | TONY | | | | | Ramin Gonzalez MD at [facility] | | | | | | /[id number] | | [facility] | | | | | | 1F | | CENTER | | | | | | | + +--------+--------+ +--------+--------+--------+ | Screw Jeimy F/T T2 Ti 5x30mm - | Screw | Left: | JUDY | | 08/05/ | 1896-5 | | [id number]: Qty: 1 on | | Femur | MEDICAL - | | 2020 | 030S / | | 10/23/2016 by Shahriar, | | | STRY | | | | | Ramin Gonzalez MD at [facility] | | | | | | /[id number] | | [facility] | | | | | | E8 | | CENTER | | | | | | | + +--------+--------+ +--------+--------+--------+ | Graft Infuse Bone Kit Xs - | | Bilate | [facility] | | 05/05/ | [id number] | | [id number]: Qty: 1 on | | ral: | DANEK - DIV | | 2014 | 0 / | | 06/17/2014 by Douglas Nuñez, | | Spine | MEDTRONIC | | | /[id number] | | at [facility] | | Lumbar | - SFDK | | | 06AAL | | [facility] | | | | | | | + +--------+--------+ +--------+--------+--------+ | Cage Capstone 26x11 - | | Left: | MEDTRONIC - | | 04/29/ | [id number] | | [id number]: Qty: 1 on | | Spine | MEDT | | 2021 | | | 06/17/2014 by Douglas Nuñez, | | Lumbar | | | | /[id number] | | at [facility] | | | | | | 788 | | [facility] | | | | | | | + +--------+--------+ +--------+--------+--------+ | 5.5 X 5.0mm ScrewsImplanted: | | Left: | MEDTRONIC - | | | [id number] | | Qty: 4 on 06/17/2014 by Joaquin, | | Spine | MEDT | | | 0641 / | | Douglas Gomez MD at [facility] | | Lumbar | | | | / | | [facility] | | | | | | | + +--------+--------+ +--------+--------+--------+ | Screw Royal 7.5x45mm - | | Left: | MEDTRONIC - | | | [id number] | | [id number]: Qty: 2 on | | Spine | MEDT | | | 0708 / | | 06/17/2014 by Douglas Nuñez, | | Lumbar | | | | / | | at [facility] | | | | | | | | [facility] | | | | | | | + +--------+--------+ +--------+--------+--------+ | Set ScrewsImplanted: Qty: 6 | | Left: | MEDTRONIC - | | | [id number] | | on 06/17/2014 by Douglas Nuñez | | Spine | MEDT | | | 0800 / | | MD Jason at [facility] | | Lumbar | | | | / | | [facility] | | | | | | | + +--------+--------+ +--------+--------+--------+ | RodImplanted: Qty: 1 on | | Left: | MEDTRONIC - | | | [id number] | | 06/17/2014 by Douglas Nuñez, | | Spine | MEDT | | | 5045 / | | at [facility] | | Lumbar | | | | / | | [facility] | | | | | | | + +--------+--------+ +--------+--------+--------+ | RodImplanted: Qty: 1 on | | Left: | MEDTRONIC - | | | [id number] | | 06/17/2014 by Douglas Nuñez, | | Spine | MEDT | | | 5050 / | | at [facility] | | Lumbar | | | | / | | [facility] | | | | | | | + +--------+--------+ +--------+--------+--------+ | Chips Cancellous 30cc - | | | OSTEOTECH - | | | [id number] | | [id number]: Qty: 1 | | | OSTT | | | S | | on 06/17/[address] [facility] | | | | | | /[id number] | | [facility] | | | | | | 1-045 | | CENTER | | | | | | / | + +--------+--------+ +--------+--------+--------+ | Imp Spn Spcr Cpstn [id number] - | | | [facility] | | | [id number] | | [id number]: Qty: 1 on | | | DANEK - DIV | | | 6 / | | 06/17/2014 at [facility] | | | MEDTRONIC | | | /[id number] | | [facility] | | | - SFDK | | | 162 | + +--------+--------+ +--------+--------+--------+ | Sharad Bone Palacos-R/G 40gm - | | | CHRISTIANE - | | 12/03/ | 00-111 | | [id number]: Qty: 2 on | | | [facility] | | 2019 | 3-140- | | 05/26/2015 by Shahriar, | | | | | | 01 / | | Ramin Gonzalez MD at [facility] | | | | | | /[id number] | | [facility] | | | | | | 445 | | CENTER | | | | | | | + +--------+--------+ +--------+--------+--------+ | Imp Knee Ptela Polyeth 35mm - | | | CHRISTIANE - | | 11/23/ | 42-540 | | [id number]: Qty: 1 | | | ZIMM | | 2022 | 0-000- | | on 05/26/2015 by Shahriar, | | | | | | 35 / | | Ramin Gonzalez MD at [facility] | | | | | | /[id number] | | [facility] | | | | | | 235 | | CENTER | | | | | | | + +--------+--------+ +--------+--------+--------+ | Imp Knee Tib 5deg Rt Seb - | | | CHRISTIANE - | | 04/05/ | 42-532 | | [id number]: Qty: 1 on | | | ZIMM | | 2024 | 0-071- | | 05/26/2015 by Shahriar, | | | | | | 02 / | | Ramin Gonzalez MD at [facility] | | | | | | /[address] | | [facility] | | | | | | 252 | | CENTER | | | | | | | + +--------+--------+ +--------+--------+--------+ | Imp Knee Fem Stem Cr Rt 0 Sz6 | | | CHRISTIANE - | | 10/23/ | 42-502 | | - [id number]: Qty: 1 | | | ZIM | | 5 | 6-060- | | on 05/26/2015 by Shahriar, | | | | | | 02 / | | Ramin Gonzalez MD at [facility] | | | | | | /[address]236 | | [facility] | | | | | | 498 | | CENTER | | | | | | | + +--------+--------+ +--------+--------+--------+ | Articular SurfaceImplanted: | | | Christiane | | 10/23/ | 42-522 | | Qty: 1 on 05/26/2015 by | | | | | 2019 | - | | Ramin Bess MD at | | | | | | / | | [facility] | | | | | | /[id number] | | [facility] | | | | | | 204 | + +--------+--------+ +--------+--------+--------+ | Imp Knee Surf Art L 10 | | Left: | CHRISTIANE - | | 04/05/ | 42-512 | | 6-7/Ef - [id number]: | | Knee | ZIMM | | 2019 | - | | Qty: 1 on 02/09/2016 by | | | | | | 10 / | | Ramin Bess MD at | | | | | | /[id number] | | [facility] | | | | | | 721 | | [facility] | | | | | | | [...] + + | Performing | Address | City/State/[facility] | Phone Number | | [...] | + +--------+ +--------+-------+---------+--------+ | [facility] | [facility] | [phone] | 08/06/19 | | | Medica | [...] | 1951 | [phone] | [place] [address] | | | pineda | | | 9 (Home) | | + +--------+ +--------+ + + Advance Directives + + + + + | Type | Date Recorded | Patient | Explanation | | | | Audiovisual Production Specialist | | + + + + + | Power of | | | | | Exhibit Builder | | | | + + + [...]
--- OUTSIDE RECORDS SUMMARY | ~2019-07-02 | XMS | Encounter Summary ---
Demographics + + + | Address | [address] | | | [place] [address] | + + + | Home Phone | | + + + | Preferred Language | Unknown | + + + | Marital Status | | + + + | Holiness Affiliation | 1076 | + + + | Race | Unknown | + + + | Ethnic Group | Unknown | + + + Author + + + | Author | [facility] | | | and Primo | + + + | Organization | [facility] [...] [place], [place] | | | | | [address] | | + + + + + | Dalton Fernandez | ECON | Unknown | | + + + + + | Juana Fernandez | ECON | Unknown | | + + + + + Care Team Providers + +------+ + | Care Jammer Hooker Name | Role | Phone | + [...] knee replacement, | | | | [address] [facility] | [facility] | left | | | | [place] | [place] [address] | | | | | [address] | [phone] | | | | | [phone] | | | +--------+ + + + [...] [place] | | | | | | [address] | | | | | | | [...] | interval complication. Dictated and Signed by: Cceilio Weir MD | | | Electronically signed: [...] ST. | [address] | [place] | [phone] | | [facility] | | [address] | | | - IMAGING | | | | + + + + + documented in this encounter Visit Diagnoses + + | Diagnosis | + + | Status post total knee replacement, left | + + documented in this encounter"
--- OUTSIDE RECORDS SUMMARY | ~2019-07-02 | XMS | Encounter Summary ---
Demographics + + + | Address | [address] | | | [place] [address] | + + + | Home Phone [...] | [facility] | | | and Primo | + + + | Organization | [facility] | | | and [...] [place], [place] | | | | | [address] | | + + + + + | Dalton Fernandez | ECON | Unknown | | + + + + + | Juana Fernandez | ECON | Unknown | | + + + + + Care Team Providers + +------+ + | Care Pipelines Supervisor Name | Role | Phone | [...] + + | 03/28/ | Telephone | [facility] | Ramin Bess | Allergy | | 2015 | | ORTHOPEDIC SURGERY | MD Lisa [address] [facility] | | | | | [address] [facility] | [place], [place] | | | | | [place], [place] | [address] | | | | | [address] | | | | | | [phone] | | | +--------+ + + + [...]
--- OUTSIDE RECORDS SUMMARY | ~2019-07-02 | XMS | Encounter Summary ---
Demographics + + + | Address | [address] | | | [place] [address] | + + + | Home Phone | | + + + | Preferred Language | Unknown | + + + | Marital Status | | + + + | Baptist Affiliation | Unknown | + + + | Race | Unknown | + + + | Ethnic Group | Other Race | + + + Author + + + | Author | [facility] | + + + | Organization | [facility] | + + + | Address | Unknown | + + + | Phone | Unavailable | + + + Support + + +---------+ + | Name | Relationship | Address | Phone | + + +---------+ + | Pt None Per | ECON | Unknown | Unavailable | + + +---------+ + Care Team Providers + +------+ + | Care Call Center Analyst Name | Role | Phone | [...] Pharmacy | | | | | | [address] | | | | | | [place], | | | | | | [place] [address] | | | | | | [phone] | | | +--------+ + + + [...]
--- OUTSIDE RECORDS SUMMARY | ~2019-07-02 | XMS | Encounter Summary ---
Demographics + + + | Address | [address] | | | [place] [address] | + + + | Home Phone [...] | Author | [facility] | | | and Primo | + + + | Organization | [facility] | | | and [...] [place], [place] | | | | | [address] | | + + + + + | Dalton Fernandez | ECON | Unknown | | + + + + + | Juana Fernandez | ECON | Unknown | | + + + + + Care Team Providers + +------+ + | Care Early Years Teacher Name | Role | Phone | [...] | | ORTHOPEDIC SURGERY | MD Lisa [address] [place] [address] | osteoarthritis of | | | | [address] [place] [address] | [place] | left knee; Fitting | | | | [place] | [address] | and adjustment of | | | | [address] | | prosthetic device | | | | [phone] | | | +--------+ + + + [...] [place] | | | | | | [address] | | | | | | | [...]
--- OUTSIDE RECORDS SUMMARY | ~2019-07-02 | XMS | Encounter Summary ---
Demographics + + + | Address | [address] | | | [place] [address] | + + + | Home Phone [...] + | Author | [facility] | | | and Primo | + + + | Organization | [facility] | | [...] [place], [place] | | | | | [address] | | + + + + + | Dalton Koroma | ECON | Unknown | | + + + + + | Juana Koroma | ECON | Unknown | | + + + + + Care Team Providers + +------+ + | Care Exercise Planner Name | Role | Phone | [...] + + | 06/29/ | Office | [facility] | Ramin Huggins | S/P orthopedic | | 2015 | Visit | ORTHOPEDIC SURGERY | MD Lisa [address] [facility] | surgery, follow-up | | | | [address] [facility] | [place] | exam (Primary Dx) | | | | [place] | [address] | | | | | [address] | | | | | | [phone] | | | +--------+---------+ + + + [...] - 06/29/2015 10:41 AM PSTSee soap note [id number].Electronically sign ed by Ramin Huggins MD at 06/29/2015 10:42 AM Ramin Palomino MD - 10:41 AM PST [facility] ORTHOPEDIC SURGERY [address] [place] [address] OFFICE NOTE RAMIN HUGGINS MD Patient: MYRIAM KOROMA Admitting: MR #: [id number] LOC: PT TYPE: Adm Date: 06/29/2015 : [...] nothing for household ambulation. [facility] EXAMINATION: The [...] her a single non-fillable prescri ption for [place] 10/325 to use as needed as a rescue pain medication. We will plan see her back for a clinical check in 1 month. RAMIN HUGGINS MD Dictated by RAMIN HUGGINS MD 06/29/2015 10:41:30 Transcribed on 06/30/2015 06:06:04 by rajinder job# [id number] Confirmation #: [id number] cc: DUTCH VALENCIA DO documented in this encounter Plan of Treatment +--------+---------+ + + + | Date | Type | Specialty | Care Team | Description | +--------+---------+ + + + | 07/22/ | Office | Orthopedic Surgery | Ramin Huggins | | | 2019 | Visit | | MD Lisa [facility] | | | | | | [place] | | | | | | [id number] | | | | | | | | +--------+---------+ + + + documented as of this encounter Visit Diagnoses + + | Diagnosis | + + | S/P orthopedic surgery, follow-up exam - Primary Follow-up examination, following | | other surgery | + + documented in this encounter
--- OUTSIDE RECORDS SUMMARY | ~2019-07-02 | XMS | Encounter Summary ---
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 Then, look for Transforaminal Lumbar Interbody Fusion (TLIF) under Surgical Options. documented in this encounter Progress Notes Douglas Nuñez MD - 04/02/2014 1:53 PM PDTFormatting of this note might be different from t dontae original. Douglas Nuñez M.D. [address] [facility], [address] [place], [place] [address] FAX: NEUROSURGERY FOLLOW-UP CHIEF COMPLAINT: Chief Complaint [...] medication and asked to followup with her [facility] back surgeon in the future. Unfortunately, [...] has no apparent deficits with short or oysterman memory. MOTOR EXAM: (5 IS NORMAL) * Indicates pain limited MUSCLE/ MOVEMENT: RIGHT LEFT Deltoids 5 5 Biceps 5 5 Triceps 5 5 Wrist Flexion 5 5 Wrist Extension 5 5 Median Intrinsics 5 5 Ulnar Intrinsics 5 5 Lithographic Press Feeder Strength 5 5 Hip Flexion 5 5 [...] 2019 | Visit | | MD Lisa [address] [place] [address] | | | | | | [place] | | | | | | [address] | | | | | | | [...]
--- OUTSIDE RECORDS SUMMARY | ~2019-07-02 | XMS | Encounter Summary ---
Demographics + + + | Address | [address] | | | [place] [address] | + + + | Home Phone [...] + | Author | [facility] | | | and Primo | + + + | Organization | [facility] | [...] [place], [place] | | | | | [address] | | + + + + + | Dalton Fernandez | ECON | Unknown | | + + + + + | Juana Fernandez | ECON | Unknown | | + + + + + Care Team Providers + +------+ + | Care Fiberglass Boat Assembly Supervisor Name | Role | Phone | + +------+ + | Dutch Rodriguez DO | PCP | | + +------+ + Encounter Details +--------+ + + + + | Date | Type | Department | Care Team | Description | +--------+ + + + + | 05/14/ | Orders Only | [facility] | Douglas Nuñez MD | Gastric reflux | | 2013 | | NEUROSURGERY [address] | [address] | (Primary Dx); | | | | [address] | [place] [address] | Migraine; | | | | [place] | [phone] | Preoperative | | | | [address] | | clearance | | | | [phone] | | | +--------+ + + + [...] 2019 | Visit | | MD Lisa [address] [place] [address] | | | | | | [place] | | | | | | [address] | | | | | | | | +--------+---------+ + + + documented as of this encounter Results ECG 12 lead (06/11/2014 [...] Segun Miranda MD - 06/11/2014 7:28 AM [facility] Adult ECG Report | | | | Name: Mike Fernandez | | Age: 63 y.o. | | Gender: female | | | | 06/10/14 at 10:21 | | Narrative Interpretation: Sinus rhythm. First degree AV block. Normal axis. | + + XR Chest PA and Lateral (06/10/2014 9:49 AM [facility]) + + | Specimen | + [...] + | MISCELLANEOUS LAB | | | [phone] | + +---------+ + + | MISCELANIOUS LAB | | | [phone] | + +---------+ + + CBC with [...] | | | | M/uL | [facility] | | | | [...] | Neutrophils | | K/uL | [facility] | | | | | | MEDICAL | | | | | | CENTER - | | | | | | LABORATORY | | + +-------+ + + + | Absolute | 1.50 | 0.60 - 3.20 | [facility] | | | Lymphocytes | | K/uL | [facility] | | | | | | MEDICAL | | | | | | CENTER - | | | | | | LABORATORY | | + +-------+ + + + | Absolute | 0.40 | 0.00 - 1.00 | [facility] | | | Monocytes | | K/uL | [facility] | | | | | | MEDICAL | | | | | | CENTER - | | | | | | LABORATORY | | + +-------+ + + + | Absolute | 0.10 | 0.00 - 0.40 | [facility] | | | Eosinophils | | K/uL | [facility] | | | | | [...] + + | Performing | Address | City/[facility] | Phone Number | | Organization | | | | + + + + + | [facility] | [address] | [place], [place] | [phone] | | [facility] | | [address] | | | - LABORATORY | | | | + + + + + | [facility] | [address] | [place], [place] | | | [facility] | | [address] | | | - LABORATORY | | [...] 15 | 7 - 18 mg/dL | [facility] | | | | | | [facility] | | | | | | MEDICAL | | | | | | CENTER - | | | | | | LABORATORY | | + + + + + + | Creatinine | 0.70 | 0.60 - 1.30 | [facility] | | | | | mg/dL | [facility] | | | | | | MEDICAL | | | | | | CENTER - | | | | | | LABORATORY | | + + + + + + | eGFR if not | >60Comment: GLOMERULAR | >=60 | [facility] | | | | FILTRATION | mL/min/1.73m2 | [facility] | | | [facility] [employer] [facility] | RATE,ESTIMATED | | MEDICAL | | | | mL/min/1.05y5Owoq than | | CENTER - | | [...] | | | | | mg/dL | [facility] | | | | [...] + | [facility] | [address] | [place] | [phone] | | [facility] | | [address] | | | - LABORATORY | | | | + + + + + | [facility] | [address] | [place], [place] | | | [facility] | | [address] | | | - LABORATORY | | | | + + + + + documented in this encounter Visit Diagnoses + + | Diagnosis | + + | Gastric reflux - Primary Esophageal reflux | + + | Migraine Migraine, unspecified, without mention of intractable migraine without | | mention of status migrainosus | + + | Preoperative clearance Preoperative examination, unspecified | + + documented in this encounter"
--- OUTSIDE RECORDS SUMMARY | ~2019-07-02 | XMS | Encounter Summary ---
Demographics + + + | Address | [address] | | | [place] [address] | + + + | Home Phone [...] Author | [facility] | | | and Primo | + + + | Organization | [facility] | [...] [place], [place] | | | | | [address] | | + + + + + | Dalton Fernandez | ECON | Unknown | | + + + + + | Juana Fernandez | ECON | Unknown | | + + + + + Care Team Providers + +------+ + | Care Waiter/Waitress Head Name | Role | Phone | + [...] | | [address] | [place] [address] | Migraine; | | | | [place] | [phone] | Preoperative | | | | [address] | | clearance | | | | [phone] | | | +--------+ + + + [...] 2019 | Visit | | MD Lisa [address] [place] [address] | | | | | | [place] | | | | | | [address] | | | | | | | [...] Segun Miranda MD - 06/11/2014 7:28 AM [facility] Adult ECG Report | | | | Name: Mike Fernandez | | Age: 63 y.o. | | Gender: female | | | | 06/10/14 at 10:21 | | Narrative Interpretation: Sinus rhythm. First degree AV block. Normal axis. | + + XR Chest PA and Lateral (06/10/2014 9:49 AM [facility]) + + | Specimen | [...] + | MISCELLANEOUS LAB | | | [phone] | + +---------+ + + | MISCELANIOUS LAB | | | [phone] | + +---------+ + + CBC with [...] + + | Performing | Address | City/[facility] | Phone Number | | Organization | | | | + + + + + | [facility] | [address] | [place], [place] | [phone] | | [facility] | | [address] | | | - LABORATORY | | | | + + + + + | [facility] | [address] | [place], [place] | | | [facility] | | [address] | | | - LABORATORY | | [...] | 0.70 | 0.60 - 1.30 | [facility] | | | | | mg/dL | [...] | | MEDICAL | | | | mL/min/1.29v0Vzad than | | CENTER - | | [...] + | [facility] | [address] | [place] | [phone] | | [facility] | | [address] | | | - LABORATORY | | | | + + + + + | [facility] | [address] | [place], [place] | | | [facility] | | [address] | | | - LABORATORY | | [...]
--- OUTSIDE RECORDS SUMMARY | ~2019-07-02 | XMS | Encounter Summary ---
Demographics + + + | Address | [address] | | | [place] [address] | + + + | Home Phone | | + + + | Preferred Language | Unknown | + + + | Marital Status | | + + + | Muslim Affiliation | 1076 | + + + | Race | Unknown | + + + | Ethnic Group | Unknown | + + + Author + + + | Author | [facility] | | | and Primo | + + + | Organization | [facility] [...] [place], [place] | | | | | [address] | | + + + + + | Dalton Fernandez | ECON | Unknown | | + + + + + | Juana Fernandez | ECON | Unknown | | + + + + + Care Team Providers + +------+ + | Care Banking And Finance Instructor Name | Role | Phone | + [...] CENTER | Douglas Nuñez MD | Other (ED visit) | | 2014 | | NEUROSURGERY [address] | [address] | | | | | [address] [facility] [address] | [place] [address] | | | | | [place] | [phone] | | | | | [address] | | | | | | [phone] | | | +--------+ + + + [...] [place] | | | | | | [id number] | | | | | | | | +--------+---------+ + + + documented as of this encounter Visit Diagnoses Not on filedocumented in this encounter"
--- OUTSIDE RECORDS SUMMARY | ~2019-07-02 | XMS | Encounter Summary ---
Demographics + + + | Address | [address] | | | [place] [address] | + + + | Home Phone [...] | Author | [facility] | | | and Primo | + + + | Organization | [facility] [...] [place], [place] | | | | | [address] | | + + + + + | Dalton Fernandez | ECON | Unknown | | + + + + + | Juana Fernandez | ECON | Unknown | | + + + + + Care Team Providers + +------+ + | Care Mfts Name | Role | Phone | + [...] + + | 02/13/ | Telephone | [facility] | Cyn Lee, | Hospital Follow-up | | 2016 | | [facility] | [address] | | | | | [address] | [place] [address] | | | | | [place] [address] | [phone] | | | | | [phone] | | | +--------+ + + + [...]
--- OUTSIDE RECORDS SUMMARY | ~2019-07-02 | XMS | Encounter Summary ---
Demographics + + + | Address | [address] | | | [place] [address] | + + + | Home Phone [...] | [facility] | | | and Primo | + + + | Organization | [facility] | | | and [place] | + + + | Address | Unknown | + + + | Phone | Unavailable | + + + Support + + + + + | Name | Relationship | Address | Phone | + + + + + | Devang Fernandez | [place] | [address] | | | | | [place], [place] | | | | | [address] | | + + + + + | Dalton Fernandez | ECON | Unknown | | + + + + + | Juana Fernandez | ECON | Unknown | | + + + + + Care Team Providers + +------+ + | Care Private Investigator Name | Role | Phone | + [...] + + | 02/08/ | Anesthesia | [facility] | Srinivasan Albright | | | 2015 | Event | MED CTR OR INTRA OP | MD Carly [address] | | | | | [address] | [address] [facility] | | | | | [place], [place] | [place] [address] | | | | | [address] | [phone] | | | | | [phone] | | | +--------+ + + + [...] +----+---+ + + | | 0 | Isom | | | | 8 | 43-degrees [...] +----+---+ + + | | 0 | Isom off | | | | 9 | [...] 0000 by | | eral | Wrist; [id number]-cme-[id number] catheter | Sabrina Horton RN | Amaris [...] [place] | | | | | | [id number] | | | | | | | [...]
--- OUTSIDE RECORDS SUMMARY | ~2019-07-02 | XMS | Encounter Summary ---
Demographics + + + | Address | [address] | | | [place] [address] | + + + | Home Phone [...] | Author | [facility] | | | and Primo | + + + | Organization | [facility] | | | and [place] [...] [place], [place] | | | | | [address] | | + + + + + | Dalton Fernandez | ECON | Unknown | | + + + + + | Juana Fernandez | ECON | Unknown | | + + + + + Care Team Providers + +------+ + | Care Automobile Mechanic Motor Name | Role | Phone | + +------+ + | Dutch Rodriguez DO | PCP | | + +------+ + Encounter Details +--------+ + + + + | Date | Type | Department | Care Team | Description | +--------+ + + + + | 01/01/ | Hospital | [facility] | Ramin Bess | S/P ORIF (open | | 2018 | Encounter | MED CTR FABIAN XRAY | MD Lisa [address] [facility] | reduction internal | | | | [address] [place] | [place] | fixation) fracture | | | | [place] | [id number] | | | | | [address] | | | | | | [phone] | | | +--------+ + + + [...] + + +---------+ + + | EPIPEN 2-RAMIDA 0.3 | Inject 0.3 mg into | [...] [place] | | | | | | [address] | | | | | | | [...]
--- OUTSIDE RECORDS SUMMARY | ~2019-07-02 | XMS | Encounter Summary ---
Demographics + + + | Address | [address] | | | [place] [address] | + + + | Home Phone [...] | Author | [facility] | | | and Primo | + + + | Organization | [facility] | | [...] [place], [place] | | | | | [address] | | + + + + + | Dalton Fernandez | ECON | Unknown | | + + + + + | Juana Fernandez | ECON | Unknown | | + + + + + Care Team Providers + +------+ + | Care Heavy Duty Diesel Mechanic Name | Role | Phone | [...] | | | | | | | OR TOTAL | | | | | | [...] + + | 02/08/ | Hospital | [facility] | Ramin Bess | Primary | | 2016 - | Encounter | MED CTR SURGICAL | MD Lisa [address] [facility] | osteoarthritis of | | | | [address] [place] | [place] | left knee (Primary | | 02/11/ | | [place] [address] | [address] | Dx) | | 2015 | | [phone] | | | +--------+ + + + [...] go straight to outpatient therapy at the [facility] in [place] and work with Che , the PT [...] Electronically signed by: Chris French, 02/12/2016 8:34 [facility] documented in this en counter Discharge [...] home tomorrow. Has Xarelto at home. Needs [place] . Zachery Odonnell PA-C - 02/2016 1:32 [...] 13:32 This note was dictated using the [employer] voice recognition system. Minor errors in [...] [place] | | | | | | [address] | | | | | | | [...] + | [facility] | [address] | [place] | [phone] | | [facility] | | [address] | | | - LABORATORY | | [...] mL/min/1.73m2 | [facility] | | | EMIRATI | RATE,ESTIMATED | | MEDICAL | | | | mL/min/1.67k5Szlz than | | CENTER - | | [...] ST. | [address] | [place] | [phone] | | [facility] | | [address] | | | - LABORATORY | | [...] | | | | | | | [place] 10/325 if ordered., | | | | [...]
--- OUTSIDE RECORDS SUMMARY | ~2019-07-02 | XMS | Encounter Summary ---
Demographics + + + | Address | [address] | | | [place] [address] | + + + | Home Phone [...] Author | [facility] | | | and Primo | + + + | Organization | [facility] | | | [...] [place], [place] | | | | | [address] | | + + + + + | Dalton Fernandez | ECON | Unknown | | + + + + + | Juana Fernandez | ECON | Unknown | | + + + + + Care Team Providers + +------+ + | Care Dental Technician Apprentice Name | Role | Phone | [...] knee replacement, | | | | [address] [facility] | [facility] | left | | | | [place] | [place] [address] | | | | | [address] | [phone] | | | | | [phone] | | | +--------+ + + + [...] [place] | | | | | | [address] | | | | | | | [...] ST. | [address] | [place] | [phone] | | [facility] | | [address] | | | - IMAGING | | | | + + + + + documented in this encounter Visit Diagnoses + + | Diagnosis | + + | Status post total knee replacement, left | + + documented in this encounter"
--- OUTSIDE RECORDS SUMMARY | ~2019-07-02 | XMS | Encounter Summary ---
Demographics + + + | Address | [address] | | | [place] [address] | + + + | Home Phone | | + + + | Preferred Language | Unknown | + + + | Marital Status | | + + + | Jainism Affiliation | 1076 | + + + | Race | Unknown | + + + | Ethnic Group | Unknown | + + + Author + + + | Author | [facility] | | | and Primo | + + + | Organization | [facility] | [...] [place], [place] | | | | | [address] | | + + + + + | Dalton Fernandez | ECON | Unknown | | + + + + + | Juana Fernandez | ECON | Unknown | | + + + + + Care Team Providers + +------+ + | Care Air Chief Marshal Name | Role | Phone | + +------+ + | Dutch Rodriguez DO | PCP | | + +------+ + Encounter Details +--------+ + + + + | Date | Type | Department | Care Team | Description | +--------+ + + + + | 02/02/ | [facility] | [facility] | Ramin Bess | Ambik[place]ia | | 2016 | Encounter | MED CTR LABORATORY | MD Lisa [address] [facility] | | | | | [address] [place] | [place] | | | | | [place] | [address] | | | | | [address] | | | | | | [phone] | | | +--------+ + + + [...] [place] | | | | | | [address] | | | | | | | [...] - 1.030 | [facility] | | | [place] | | | [facility] | | [...] [address] | [place] | [phone] | | [facility] | | [address] | | | - LABORATORY | | | | + + + + + documented in this encounter Visit Diagnoses + + | Diagnosis | + + | Nocturia | + + documented in this encounter"
--- OUTSIDE RECORDS SUMMARY | ~2019-07-02 | XMS | Encounter Summary ---
Demographics + + + | Address | [address] | | | [place] [address] | + + + | Home Phone [...] | Author | [facility] | | | and Primo | + + + | Organization | [facility] | | [...] [place], [place] | | | | | [address] | | + + + + + | Dalton Fernandez | ECON | Unknown | | + + + + + | Juana Fernandez | ECON | Unknown | | + + + + + Care Team Providers + +------+ + | Care Color Television Console Monitor Name | Role | Phone | + [...] | 03/16/ | Telephone | [facility] | Douglas Nuñez MD | Other | | 2013 | | NEUROSURGERY [address] | [address] | | | | | [facility] [facility] [address] | [place] [address] | | | | | [place] | [phone] | | | | | [address] | | | | | | [phone] | | | +--------+ + + + [...] [place] | | | | | | [address] | | | | | | | | +--------+---------+ + + + documented as of this encounter Visit Diagnoses Not on filedocumented in this encounter"
--- OUTSIDE RECORDS SUMMARY | ~2019-07-02 | XMS | Encounter Summary ---
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 easy bruising or bleeding, denies weight loss Problem List Patient Active Problem List Diagnosis Gastric reflux Migraine Spondylolisthesis of lumbar region Lumbar radiculopathy Back pain S/P lumbar fusion Primary osteoarthritis of right knee Primary osteoarthritis of left knee Closed fracture of left distal femur Current Meds: Current facility-administered medications: acetaminophen (TYLENOL) tablet 650 mg, 650 mg, Oral, 3 times per day, Raheel beltran MD, 650 mg at 10/30/16 0656 aluminum & magnesium hydroxide-simethicone (MAALOX PLUS REGULAR STRENGTH) 200-200-20 m g/5 mL suspension 30 mL, 30 mL, Oral, Q6H PRN, Raheel Vazquez MD bisacodyl (DULCOLAX) suppository 10 mg, 10 mg, Rectal, Daily PRN, Raheel Vazquez MD calcium carbonate (TUMS) chewable tablet 1,000 mg, 1,000 mg, Oral, Q2H PRN, Raheel Vazquez MD cholecalciferol (VITAMIN D-3) tablet 1,000 Units, 1,000 Units, Oral, Daily, Raheel Vazquez MD, 1,000 Units at 10/30/16 0829 cycloSPORINE (RESTASIS) 0.05% ophthalmic emulsion 1 drop, 1 drop, Both Eyes, BID, Addison Vazquez MD, 1 drop at 10/30/16 0829 docusate sodium (COLACE) capsule 100 mg, 100 mg, Oral, BID PRN, Raheel Vazquez MD enoxaparin (LOVENOX) 40 mg/0.4 mL injection 40 mg, 40 mg, Subcutaneous, Daily, Jasmyne Vazquez MD, 40 mg at 10/30/16 0829 gabapentin (NEURONTIN) capsule 300 mg, 300 mg, Oral, Nightly, Raheel Vazquez MD, 300 mg at 10/29/160 HYDROmorphone (DILAUDID) injection 0.2-0.4 mg, 0.2-0.4 mg, Intravenous, Q1H PRN, Jan Vazquez MD HYDROmorphone (DILAUDID) tablet 1-2 mg, 1-2 mg, Oral, Q3H PRN, Raheel Vazquez MD, 1 mg at 10/26/16 0444 iron polysaccharides (NIFEREX) capsule 150 mg, 150 mg, Oral, Daily, Raheel Vazquez MD, 150 mg at 10/30/16 0829 lactulose liquid 30 mL, 30 mL, Oral, Daily PRN, Raheel Vazquez MD loratadine (CLARITIN) tablet 10 mg, 10 mg, Oral, Daily PRN, Raheel Vazquez MD magnesium hydroxide (MILK OF MAGNESIA) 400 mg/5 mL suspension 30 mL, 30 mL, Oral, Nigh tly PRN, Raheel Vazquez MD ondansetron (ZOFRAN ODT) disintegrating tablet 4 mg, 4 mg, Oral, Q6H PRN, Raheel martinez MD pantoprazole (PROTONIX) DR tablet 40 mg, 40 mg, Oral, QAM AC, Raheel Vazquez MD, 40 mg at 10/30/16 0656 pilocarpine (SALAGEN) tablet 5 mg, 5 mg, Oral, 4x Daily, Raheel Vazquez MD, 5 mg at 10/30/16 0829 polyethylene glycol (MIRALAX) powder 17 g, 17 g, Oral, Daily PRN, Raheel Vazquez MD probiotic formula capsule 1 capsule, 1 capsule, Oral, Daily with breakfast, Raheel Vazquez MD, 1 capsule at 10/30/16 0829 senna (SENOKOT) tablet 8.6 mg, 8.6 mg, Oral, BID PRN, Raheel Vazquez MD zolpidem (AMBIEN) tablet 5 mg, 5 mg, Oral, Nightly PRN, Raheel Vazquez MD Allergies: Allergies Allergen Reactions Onion Shortness Of Breath,Other (See Comments) Swelling mouth, migraines, and 3 days of knotting stomach Penicillins Rash Hydrocodone Rash Intolerance Allergen Reactions Codeine Other (See Comments) Cotton Mouth Food Nausea Only vegetable peppers Physical Exam: BP 115/64 mmHg | Pulse 81 | Temp(Src) 36.8 C (98.2 F) (Oral) | Resp 18 | Ht 1.626 m (5' 4") | Wt 77.2 kg (170 lb 3.1 oz) | BMI 29.20 kg/m2 | SpO2 95% Gen: AOx3, sitting in bed, NAD CVS: rrr, no m/r/g Resp: CTAB, no wheeze, crackles, or rhonchi Abd: Non-distended, non-tender, +BS Labs: Recent Results (from the past 48 hour(s)) CBC no Differential Result Value Ref Range WBC 7.2 4.0-11.0 K/uL RBC 3.46 (L) 3.70-5.20 M/uL Hgb 10.4 (L) 11.5-16.0 g/dL Hct 31.7 (L) 34.0-47.0 % MCV 91.5 83.0-101.0 fL MCH 30.1 28.0-35.0 pg MCHC 32.8 32.0-36.0 g/dL RDW-CV 13.5 <15.0 % Platelet Count 370 140-440 K/uL MPV 7.2 fL Comprehensive Metabolic Panel Result Value Ref Range NA 144 136-149 mmol/L K 4.2 3.5-5.1 mmol/L CL 104 98-109 mmol/L CO2 26 24-31 mmol/L ANION GAP 14 3-16 mmol/L GLUCOSE 108 70-109 mg/dL BUN 12 7-18 mg/dL Creatinine, Serum/Plasma 0.72 0.60-1.30 mg/dL eGFR if not >60 >=60 mL/min/1.73m2 CALCIUM 9.3 8.3-10.5 mg/dL ALBUMIN 3.2 3.2-5.0 g/dL BILIRUBIN TOTAL 0.7 0.1-1.5 mg/dL Total protein 6.6 6.0-7.8 g/dL AST 31 10-42 U/L ALT 36 6-45 U/L ALK PHOS 65 40-110 U/L GLOBULIN 3.4 2.1-3.8 g/dL Albumin/Globulin ratio 0.9 0.8-2.0 BUN/CREA 16.7 Most recent FIM scores: Report Date 10/30/2016 FIM BladderScore: 5 FIM Bowel Score: 6 FIM Bed/Chair/Wheelchair Score: 6 FIM Toilet Transfer Score: 6 FIM Tub/Shower Transfer Score: 6 FIM Walk Score: 2 FIM Distance Walked(feet): 102 feet FIM Wheelchair Score: FIM Stairs Score :1 FIM Eating Score: 6 FIM Grooming Score: 6 FIM Bathing Score: 5 FIM Dressing Upper Body Score: 6 FIM Dressing Lower Body Score: 5 FIM Toileting Score: 6 Assessment/Plan: Ms. Fernandez is a 65 year old woman with history of lumbar spondylolisthesis s/p L4-S1 fusion (06/17/14), left TKR (02/09/16) ,right TKR (05/26/15) who was admitted after a fall from [facility] resulting in left distal femur fracture now s/p ORIF on 10/23/16. Pt now has deficits in coordination, ambulation, strength, ADLs, and IADLs. She is safe to initiate therapies, b ut is medically complex requiring 24hr nursing and MD care. # Rehabilitation - Patient will likely need a ramp to enter the home with either a rental M WC or FWW. The patient will receive the following therapies: -- PT: impairments in gait, transfers, bed mobility, ambulation, ROM, strengthening, endura nce. -- OT: impairments in ADLs and iADLs, ROM, strengthening. -- SW: discharge planning # Left periprosthetic femur fracture: Patient reports pain has been mild to moderate, contr olled with tylenol and dilaudid, previous allergy to hydrocodone and codeine. Discussed th at diluadid is not really an ideal medication as it only provides brief ~45min of pain relie f but for at least today she wants to continue. -MSK pain Tylenol, PRN dilaudid -NWB LLE -Continue LMWH, Lovenox 40mg daily -Restart home vitamin D 1000 IU daily #?Restless leg syndrome - improved, reports history of similar leg symptoms after he other surgeries. -Continue gabapentin 300mg qhs #Anemia - chornic in setting of recent surgery -Continue iron polysaccharide daily #Bladder management: fowler removed 10/26 #PUD prophylaxis: history of GERD -Continue home protonix daily #Diet - regular with thins #DVT PPx - increased risk -Enoxaparin 40u daily Code Status: Full Code Dispo: TBD, depends on progress/ability to mobilize up/down ramp I spent 20 minutes face to face with the patient, with over 50% spent in counseling and/or coordination of care regarding the above plan. Signed: Raheel Vazquez MD Portions of this chart may have been created with [employer]in[employer] voice recognition software. Occasi onal wrong-word or sound-alike substitutions may have occurred due to the inherent ramirez itations of voice recognition software. Please read the chart carefully and recognize, using context, where these substitutions have occurred. Justyna Moss RN - 10/28/2016 5:20 PM PDTAssumed care for patient at this time. Pt denies pain or n eed at this time. P Ramin Livingston MD - 10/28/2016 1:56 PM PDTORTHO 5 days s/p ORIF left supracondylar periprosthetic femur fracture with retrograde IM nail. Minimal pain, no complaints. Bandages clean and dry. NV function intact to feet. X rays reviewed with patient and questions answered. Plan: Tucker can be removed be discharge. NWB left foot for 6 weeks. However, will plan to place ROM knee brace in 3 wee ks to allow early, gently ROM. Raheel Hart MD - 10/27/2016 3:59 PM PDT [id number] Daily Progress Note Date: 10/27/2016 ID/CC: Ms. Fernandez is a 65 year old woman with history of lumbar spondylolisthesis s/p L4-S1 fusion (06/17/14), left TKR (02/09/16) ,right TKR (05/26/15) who was admitted after a fall [facility] resulting in left distal femur fracture now s/p ORIF on 10/23/16 Interval history: Did well overnight, no PRN pain meds requested yesterday. Did better with therapies today, seems unlikely that she will be able to manage stairs with crutches or walker so will need cecy at home. PT will assess how patient mobilizes on a ramp this afternoon. Review of Systems - Constitutional - denies fevers/chills, denies fatigue Eyes - denies diplopia, denies double vision ENT denies sore throat, denies swallowing difficulty Card - denies CP, denies palpitations Pulm - denies dyspnea, cough Abd - denies n/v, denies diarrhea/constipation Vascular - denies swelling, denies cold extremities Neuro - Please see the review of systems discussed above in the history of present illness. MSK - History of multiple MSK surgeries. Endocrine - denies heat/cold intolerance Skin - denies open sores Psych - denies depression, anxiety - denies incontinence, dysuria, frequency All denies rash, denies pruritis Hematologic- denies easy bruising or bleeding, denies weight loss Problem List Patient Active Problem List Diagnosis Gastric reflux Migraine Spondylolisthesis of lumbar region Lumbar radiculopathy Back pain S/P lumbar fusion Primary osteoarthritis of right knee Primary osteoarthritis of left knee Closed fracture of left distal femur Current Meds: Current facility-administered medications: acetaminophen (TYLENOL) tablet 650 mg, 650 mg, Oral, 3 times per day, Raheel beltran MD, 650 mg at 10/27/16 1413 aluminum & magnesium hydroxide-simethicone (MAALOX PLUS REGULAR STRENGTH) 200-200-20 m g/5 mL suspension 30 mL, 30 mL, Oral, Q6H PRN, Raheel Vazquez MD bisacodyl (DULCOLAX) suppository 10 mg, 10 mg, Rectal, Daily PRN, Raheel Vazquez MD calcium carbonate (TUMS) chewable tablet 1,000 mg, 1,000 mg, Oral, Q2H PRN, Raheel Vazquez MD cholecalciferol (VITAMIN D-3) tablet 1,000 Units, 1,000 Units, Oral, Daily, Raheel Vazquez MD, 1,000 Units at 10/27/16 0801 cycloSPORINE (RESTASIS) 0.05% ophthalmic emulsion 1 drop, 1 drop, Both Eyes, BID, Addison Vazquez MD, 1 drop at 10/27/16 0802 docusate sodium (COLACE) capsule 100 mg, 100 mg, Oral, BID PRN, Raehel Vazquez MD enoxaparin (LOVENOX) 40 mg/0.4 mL injection 40 mg, 40 mg, Subcutaneous, Daily, Jasmyne Vazquez MD, 40 mg at 10/27/16 08 gabapentin (NEURONTIN) capsule 300 mg, 300 mg, Oral, Nightly, Raheel Vazquez MD, 300 mg at 10/26/162010 HYDROmorphone (DILAUDID) injection 0.2-0.4 mg, 0.2-0.4 mg, Intravenous, Q1H PRN, Jan Vazquez MD HYDROmorphone (DILAUDID) tablet 1-2 mg, 1-2 mg, Oral, Q3H PRN, Raheel Vazquez MD, 1 mg at 10/26/16 0444 iron polysaccharides (NIFEREX) capsule 150 mg, 150 mg, Oral, Daily, Raheel Vazquez MD, 150 mg at 10/27/16 0801 lactulose liquid 30 mL, 30 mL, Oral, Daily PRN, Raheel Vazquez MD loratadine (CLARITIN) tablet 10 mg, 10 mg, Oral, Daily PRN, Raheel Vazquez MD magnesium hydroxide (MILK OF MAGNESIA) 400 mg/5 mL suspension 30 mL, 30 mL, Oral, Nigh tly PRN, Raheel Vazquez MD ondansetron (ZOFRAN ODT) disintegrating tablet 4 mg, 4 mg, Oral, Q6H PRN, Raheel martinez MD pantoprazole (PROTONIX) DR tablet 40 mg, 40 mg, Oral, QAM AC, Raheel Vazquez MD, 40 mg at 10/27/16 0619 pilocarpine (SALAGEN) tablet 5 mg, 5 mg, Oral, 4x Daily, Raheel Vazquez MD, 5 mg at 10/27/16 1413 polyethylene glycol (MIRALAX) powder 17 g, 17 g, Oral, Daily PRN, Raheel Vazquez MD probiotic formula capsule 1 capsule, 1 capsule, Oral, Daily with breakfast, Raheel Vazquez MD, 1 capsule at 10/27/16 0801 senna (SENOKOT) tablet 8.6 mg, 8.6 mg, Oral, BID PRN, Raheel Vazquez MD zolpidem (AMBIEN) tablet 5 mg, 5 mg, Oral, Nightly PRN, Raheel Vazquez MD Allergies: Allergies Allergen Reactions Onion Shortness Of Breath,Other (See Comments) Swelling mouth, migraines, and 3 days of knotting stomach Penicillins Rash Hydrocodone Rash Intolerance Allergen Reactions Codeine Other (See Comments) Cotton Mouth Food Nausea Only vegetable peppers Physical Exam: BP 122/64 mmHg | Pulse 86 | Temp(Src) 36.4 C (97.5 F) (Oral) | Resp 18 | Ht 1.626 m (5' 4") | Wt 79.2 kg (174 lb 9.7 oz) | BMI 29.96 kg/m2 | SpO2 96% Gen: AOx3, sitting in bed, NAD CVS: rrr, no m/r/g Resp: CTAB, no wheeze, crackles, or rhonchi Abd: Non-distended, non-tender, +BS Neuro: upper extremity strength normal. Labs: Recent Results (from the past 48 hour(s)) CBC with Differential Result Value Ref Range WBC 6.4 4.0-11.0 K/uL RBC 3.18 (L) 3.70-5.20 M/uL Hgb 9.6 (L) 11.5-16.0 g/dL Hct 29.2 (L) 34.0-47.0 % MCV 91.7 83.0-101.0 fL MCH 30.1 28.0-35.0 pg MCHC 32.8 32.0-36.0 g/dL RDW-CV 13.3 <15.0 % Platelet Count 250 140-440 K/uL MPV 8.1 fL % Neutrophils 62.7 45.0-82.0 % % Lymphocytes 23.4 20.0-45.0 % % Monocytes 8.5 4.0-12.0 % % Eosinophils 5.1 (H) 0.0-5.0 % % Basophils 0.3 0.0-1.0 % Absolute Neutrophils 4.00 1.80-8.50 K/uL Absolute Lymphocytes 1.50 0.60-3.20 K/uL Absolute Monocytes 0.50 0.00-1.00 K/uL Absolute Eosinophils 0.30 0.00-0.40 K/uL Absolute Basophils 0.00 0.00-0.10 K/uL Comprehensive Metabolic Panel Result Value Ref Range NA 141 136-149 mmol/L K 4.0 3.5-5.1 mmol/L CL 104 98-109 mmol/L CO2 27 24-31 mmol/L ANION GAP 10 3-16 mmol/L GLUCOSE 103 70-109 mg/dL BUN 9 7-18 mg/dL Creatinine, Serum/Plasma 0.69 0.60-1.30 mg/dL eGFR if not >60 >=60 mL/min/1.73m2 CALCIUM 8.9 8.3-10.5 mg/dL ALBUMIN 2.8 (L) 3.2-5.0 g/dL BILIRUBIN TOTAL 0.6 0.1-1.5 mg/dL Total protein 5.9 (L) 6.0-7.8 g/dL AST 42 10-42 U/L ALT 38 6-45 U/L ALK PHOS 58 40-110 U/L GLOBULIN 3.1 2.1-3.8 g/dL Albumin/Globulin ratio 0.9 0.8-2.0 BUN/CREA 13.0 Magnesium Result Value Ref Range MG 2.0 1.8-2.5 mg/dL Most recent FIM scores: Report Date 10/27/2016 FIM BladderScore: 5 FIM Bowel Score: 5 FIM Bed/Chair/Wheelchair Score: 6 FIM Toilet Transfer Score: FIM Tub/Shower Transfer Score: 5 FIM Walk Score: 2 FIM Distance Walked(feet): 84 feet FIM Wheelchair Score: FIM Stairs Score :1 FIM Eating Score: 6 FIM Grooming Score: 5 FIM Bathing Score: 4 FIM Dressing Upper Body Score: 5 FIM Dressing Lower Body Score: 5 FIM Toileting Score: 4 Assessment/Plan: Ms. Fernandez is a 65 year old woman with history of lumbar spondylolisthesis s/p L4-S1 fusion (06/17/14), left TKR (02/09/16) ,right TKR (05/26/15) who was admitted after a fall from [facility] resulting in left distal femur fracture now s/p ORIF on 10/23/16. Pt now has deficits in coordination, ambulation, strength, ADLs, and IADLs. She is safe to initiate therapies, b ut is medically complex requiring 24hr nursing and MD care. # Rehabilitation - Patient will likely need a ramp to enter the home with either a rental M WC or FWW. The patient will receive the following therapies: -- PT: impairments in gait, transfers, bed mobility, ambulation, ROM, strengthening, endura nce. -- OT: impairments in ADLs and iADLs, ROM, strengthening. -- SW: discharge planning # Left periprosthetic femur fracture: Patient reports pain has been mild to moderate, contr olled with tylenol and dilaudid, previous allergy to hydrocodone and codeine. Discussed th at diluadid is not really an ideal medication as it only provides brief ~45min of pain relie f but for at least today she wants to continue. -MSK pain Tylenol, PRN dilaudid -NWB LLE -Continue LMWH, Lovenox 40mg daily -Restart home vitamin D 1000 IU daily #?Restless leg syndrome - improved, reports history of leg "restlessness" at night after he r previous surgeries and has been occuring with the most recent surgery. Previously improv ed with gabapentin -Continue gabapentin 300mg qhs #Anemia - chornic in setting of recent surgery -Start iron polysaccharide daily #Bladder management: fowler removed 10/26 #PUD prophylaxis: history of GERD -Continue home protonix daily #Diet - regular with thins #DVT PPx - increased risk -Enoxaparin 40u daily Code Status: Full Code Dispo: TBD, depends on progress/ability to mobilize up/down ramp I spent greater than 25 minutes face to face with the patient, with over 50% spent in couns eling and/or coordination of care regarding the above plan. Signed: Raheel Vazquez MD Portions of this chart may have been created with Jobin[employer] voice recognition software. Occasi onal wrong-word or sound-alike substitutions may have occurred due to the inherent ramirez itations of voice recognition software. Please read the chart carefully and recognize, using context, where these substitutions have occurred. documented in thi s encounter Plan of Treatment +--------+---------+ + + + | Date | Type | Specialty | Care Team | Description | +--------+---------+ + + + | 07/22/ | Office | Orthopedic Surgery | Ramin Bess | | | 2019 | Visit | | MD Lisa [facility] | | | | | | [place] | | | | | | [id number] | | | | | | | | +--------+---------+ + + + + + +--------+ + + | Name | Type | Priori | Associated Diagnoses | Order Schedule | | | | ty | | | + + +--------+ + + | Ambulatory referral | Outpatient | Routin | Closed fracture of | Ordered: 11/01/2016 | | to Physical Therapy | Referral | e | distal end of left | | | | | | femur, unspecified | | | | | | fracture morphology, | | | | | | sequela | | + + +--------+ + + documented as of this encounter Procedures + +--------+ + + + | Procedure Name | Priori | Date/Time | Associated Diagnosis | Comments | | | ty | | | | + +--------+ + + + | CBC NO DIFFERENTIAL | Routin | 10/29/2016 | | Results for this | | | e | 6:15 AM | | procedure are in the | | | | PDT | | results section. | + +--------+ + + + | COMPREHENSIVE | Routin | 10/29/2016 | | Results for this | | METABOLIC PANEL | e | 6:15 AM | | procedure are in the | | | | PDT | | results section. | + +--------+ + + + | CBC WITH | Routin | 10/26/2016 | | Results for this | | DIFFERENTIAL | e | 6:25 AM | | procedure are in the | | | | PDT | | results section. | + +--------+ + + + | MAGNESIUM | Routin | 10/26/2016 | | Results for this | | | e | 6:25 AM | | procedure are in the | | | | PDT | | results section. | + +--------+ + + + | COMPREHENSIVE | Routin | 10/26/2016 | | Results for this | | METABOLIC PANEL | e | 6:25 AM | | procedure are in the | | | | PDT | | results section. | + +--------+ + + + documented in this encounter Results Comprehensive Metabolic Panel (10/29/2016 6:15 AM PDT) + + + + + + | Component | Value | Ref Range | Performed | Pathologist | | | | | At | Signature | + + + + + + | Na | 144 | 136 - 149 | [facility] | | | | | mmol/L | [facility] | | | | | | [facility] | | | | | | [facility] - | | | | | | LABORATORY | | + + + + + + | K | 4.2 | 3.5 - 5.1 | [facility] | [...] + + + | Anion Gap | 14 | 3 - 16 mmol/L | [facility] | | | | | | [facility] | | | | | | [facility] | | | | | | [facility] - | | | | | | LABORATORY | | + + + + + + | Glucose | 108 | 70 - 109 mg/dL | [facility] | | | | | | [facility] | [facility] | [facility] | | | | | | [facility] - | | | | | | LABORATORY | | + + + + + + | BUN | 12 | 7 - 18 mg/dL | [facility] | | | | | | [facility] | | | | | | [facility] | | | | | | [facility] - | | | | | | LABORATORY | | + + + + + + | Creatinine | 0.72 | 0.60 - 1.30 | [facility] | [...] | | | FILTRATION | mL/min/1.73m2 | [facility] | | | THAI | RATE,ESTIMATED | | MEDICAL | | | | mL/min/1.68b2Cazc than | | CENTER - | | [...] | | | | | mg/dL | [facility] | | | | | | MEDICAL | | | | | | CENTER - | | | | | | LABORATORY | | + + + + + + | Albumin | 3.2 | 3.2 - 5.0 g/dL | [facility] | | | | | | [facility] | | | | | | MEDICAL | | | | | | CENTER - | | | | | | LABORATORY | | + + + + + + | Bilirubin | 0.7 | 0.1 - 1.5 mg/dL | [facility] | | | Total | | | [facility] | | | | | | MEDICAL | | | | | | CENTER - | | | | | | LABORATORY | | + + + + + + | Total | 6.6 | 6.0 - 7.8 g/dL | [facility] [...] + + + + | ALT | 36 | 6 - 45 U/L | [facility] | | | | | | [facility] | | | | | | [facility]ICAL | | | | | | CENTER - | | | | | | LABORATORY | | + + + + + + | Alkaline | 65 | 40 - 110 U/L | [facility] | | | Phosphatase | | | [facility] | | | | | | MEDICAL | | | | | | CENTER - | | | | | | LABORATORY | | + + + + + + | Globulin | 3.4 | 2.1 - 3.8 g/dL | [facility] | | | | | | [facility] | | | | | | [facility] | | | | | | C[facility] - | | | | | | LABORATORY | | + + + + + + | Albumin/Aparna | 0.9 | 0.8 - 2.0 | [facility] | | | bulin Ratio | | | [facility] | | | | | | MEDICAL | | | | | | CENTER - | | | | | | LABORATORY | | + + + + + + | BUN/Creatin | 16.7 | | [facility] | | | ine [...] [address] | [place] | [phone] | | [facility] | | [address] | | | - LABORATORY | | | | + + + + + CBC no Differential (10/29/2016 6:15 AM PDT) + + + + + + | Component | Value | Ref Range | Performed | Pathologist | | | | | At | Signature | + + + + + + | WBC | 7.2 | 4.0 - 11.0 K/uL | [facility] | | | | | | [facility] | | | | | | [facility] | | | | | | [facility] - | | | | | | LABORATORY | | + + + + + + | RBC | 3.46 (L) | 3.70 - 5.20 | [facility] | | | | | M/uL | [facility] | | | | | [facility] | | | | | | C[facility] - | | | | | | LABORATORY | | + + + + + + | Hemoglobin | 10.4 (L) | 11.5 - 16.0 | [facility] | | | | | g/dL | [facility] | | | | | | MEDICAL | | | | | | CENTER - | | | | | | LABORATORY | | + + + + + + | Hematocrit | 31.7 (L) | 34.0 - 47.0 % | [facility] | | | | | | [facility] | | | | | | [facility]ICAL | | | | | | CENTER - | | | | | | LABORATORY | | + + + + + + | MCV | 91.5 | 83.0 - 101.0 fL | [facility] | | | | | | [facility] | | | | | | [facility] | | | | | | C[facility] - | | | | | | LABORATORY | | + + + + + + | MCH | 30.1 | 28.0 - 35.0 pg | [facility] | | | | | | [facility] | | | | | | [facility]ICAL | | | | | | C[facility] - | | | | | | LABORATORY | | + + + + + + | MCHC | 32.8 | 32.0 - 36.0 | [facility] | | | | | g/dL | [facility] | | | | | | MEDICAL | | | | | | CENTER - | | | | | | LABORATORY | | + + + + + + | RDW-CV | 13.5 | <15.0 % | [facility] | | | | | | [facility] | | | | | | MEDICAL | | | | | | CENTER - | | | | | | LABORATORY | | + + + + + + | Platelet | 370 | 140 - 440 K/uL | [facility] | | | Count | | | [facility] | | | | | | MEDICAL | | | | | | CENTER - | | | | | | LABORATORY | | + + + + + + | MPV | 7.2 | fL | [facility] | | | [...] [address] | [place] | [phone] | | [facility] | | [address] | | | - LABORATORY | | | | + + + + + Magnesium (10/26/2016 6:25 AM PDT) + +-------+ + + + | Component | Value | Ref Range | Performed | Pathologist | | | | | At | Signature | + +-------+ + + + | Magnesium | 2.0 | 1.8 - 2.5 mg/dL | [facility] | | | | | [facility] [...] [address] | [place] | [phone] | | [facility] | | [address] | | | - LABORATORY | | | | + + + + + Comprehensive Metabolic Panel (10/26/2016 6:25 AM PDT) + + + + + + | Component | Value | Ref Range | Performed | Pathologist | | | | | At | Signature | + + + + + + | Na | 141 | 136 - 149 | [facility] | [...] + + + + | CO2 | 27 | 24 - 31 mmol/L | [facility] [...] + + + + | Glucose | 103 | 70 - 109 mg/dL | [facility] | | | | | | [facility] | | | | | | MEDICAL | | | | | | CENTER - | | | | | | LABORATORY | | + + + + + + | BUN | 9 | 7 - 18 mg/dL | [facility] | | | | | | [facility] | | | | | | MEDICAL | | | | | | CENTER - | | | | | | LABORATORY | | + + + + + + | Creatinine | 0.69 | 0.60 - 1.30 | [facility] | | | | | mg/dL | [facility] | | | | | | MEDICAL | | | | | | CENTER - | | | | | | LABORATORY | | + + + + + + | eGFR if not | >60Comment: GLOMERULAR | >=60 | [facility] | | | | FILTRATION | mL/min/1.73m2 | [facility] | | | [facility]AI | RATE,ESTIMATED | | MEDICAL | | | | mL/min/1.92t9Buyc than | | CENTER - | | [...] + + + + | Calcium | 8.9 | 8.3 - 10.5 | [facility] | | | | | mg/dL | [facility] | | | | | | MEDICAL | | | | | | CENTER - | | | | | | LABORATORY | | + + + + + + | Albumin | 2.8 (L) | 3.2 - 5.0 g/dL | [...] + + + + | Total | 5.9 (L) | 6.0 - 7.8 g/dL | [facility] | | | Protein | | | [facility] | | | | | | MEDICAL | | | | | | [facility] - | | | | | | LABORATORY | | + + + + + + | AST | 42 | 10 - 42 U/L | [facility] | | | | | | [facility] | | | | | | [facility] | | | | | | [facility] - | | | | | | LABORATORY | | + + + + + + | ALT | 38 | 6 - 45 U/L | [facility] [...] + + + + | Globulin | 3.1 | 2.1 - 3.8 g/dL | [facility] | | | | | | [facility] | | | | | | [facility] | | | | | | [facility] - | | | | | | LABORATORY | | + + + + + + | Albumin/Aparna | 0.9 | 0.8 - 2.0 | [facility] | | | bulin Ratio | | | [facility] | | | | | | [facility] | | | | | | [facility] - | | | | | | LABORATORY | | + + + + + + | BUN/Creatin | 13.0 | | [facility] | | | ine [...] [address] | [place] | [phone] | | [facility] | | [address] | | | - LABORATORY | | | | + + + + + CBC with Differential (10/26/2016 6:25 AM PDT) + + + + + + | Component | Value | Ref Range | Performed | Pathologist | | | | | At | Signature | + + + + + + | WBC | 6.4 | 4.0 - 11.0 K/uL | [facility] | | | | | | [facility] | | | [facility] | [facility] | | | [facility] - | | | | | | LABORATORY | | + + + + + + | RBC | 3.18 (L) | 3.70 - 5.20 | [facility] | | | | | M/uL | [facility] | [facility] | | | | | | [facility] - | | | | | | LABORATORY | | + + + + + + | Hemoglobin | 9.6 (L) | 11.5 - 16.0 | [facility] | | | | | g/dL | [facility] | [facility] | | | | | | [facility] - | | | | | | LABORATORY | | + + + + + + | Hematocrit | 29.2 (L) | 34.0 - 47.0 % | [facility] | | | | | | [facility] | | | | [facility] | [facility] | | | | | | [facility] - | | | | | | LABORATORY | | + + + + + + | MCV | 91.7 | 83.0 - 101.0 fL | [facility] | | | | | | [facility] | [facility] | [facility] | [facility] | | | | | | [facility] - | | | | | | LABORATORY | | + + + + + + | MCH | 30.1 | 28.0 - 35.0 pg | [facility] | | | | | | [facility] | | | | | | [facility] | | | | | | [facility] - | | | | | | LABORATORY | | + + + + + + | MCHC | 32.8 | 32.0 - 36.0 | [facility] | | | | | g/dL | [facility] | | | | | | [facility] | | | | | | C[facility] - | | | | | | LABORATORY | | + + + + + + | RDW-CV | 13.3 | <15.0 % | [facility] | | | | | | [facility] | | | | | | [facility] | | | | | | [facility] - | | | | | | LABORATORY | | + + + + + + | Platelet | 250 | 140 - 440 K/uL | [facility] | | | Count | | | [facility] | | | | | | [facility] | | | | | | [facility] - | | | | | | LABORATORY | | + + + + + + | MPV | 8.1 | fL | [facility] | | | | | | [facility] | | | | [facility] | [facility] | | | | | | [facility] - | | | | | | LABORATORY | | + + + + + + | % | 62.7 | 45.0 - 82.0 % | [facility] | | | Neutrophils | | | [facility] | | | | | | [facility]ICAL | | | | | | CENTER - | | | | | | LABORATORY | | + + + + + + | % | 23.4 | 20.0 - 45.0 % | [facility] | | | Lymphocytes | | | [facility] | | | | | | [facility] | | | | | | CENTER - | | | | | | LABORATORY | | + + + + + + | % Monocytes | 8.5 | 4.0 - 12.0 % | [facility] | | | | | | [facility] | | | | | [facility] | | | | | | [facility] - | | | | | | LABORATORY | | + + + + + + | % | 5.1 (H) | 0.0 - 5.0 % | [facility] | | | Eosinophils | | | [facility] | | [...] + + + + | Absolute | 4.00 | 1.80 - 8.50 | [facility] | | | Neutrophils | | K/uL | [facility] | | | | | | [facility] | | | | | | CENTER - | | | | | | LABORATORY | | + + + + + + | Absolute | 1.50 | 0.60 - 3.20 | [facility] | | | Lymphocytes | | K/uL | [facility] | | | | | | [facility] | | | | | | CENTER - | | | | | | LABORATORY | | + + + + + + | Absolute | 0.50 | 0.00 - 1.00 | [facility] | | | Monocytes | | K/uL | [facility] | | | | | | [facility] | | | | | | CENTER - | | | | | | LABORATORY | | + + + + + + | Absolute | 0.30 | 0.00 - 0.40 | [facility] | [...] ST. | [address] | [place] | [phone] | | [facility] | | [address] | | | - LABORATORY | | | | + + + + + documented in this encounter Visit Diagnoses + + | Diagnosis | + + | Back pain, unspecified back location, unspecified back pain laterality, unspecified | | chronicity | + + | Closed fracture of distal end of left femur, unspecified fracture morphology, sequela | + + | S/P lumbar fusion Arthrodesis status | + + | Spondylolisthesis of lumbar region Acquired spondylolisthesis | + + | Primary osteoarthritis of left knee Primary localized osteoarthrosis, lower leg | + + | Primary osteoarthritis of right knee Primary localized osteoarthrosis, lower leg | + + | Lumbar radiculopathy Thoracic or lumbosacral neuritis or radiculitis, unspecified | + + documented in this encounter Administered Medications + +--------+ +--------+------+------+ | Medication Order | MAR | Action | Dose | Rate | Site | | | Action | Date | | | | + +--------+ +--------+------+------+ | acetaminophen (TYLENOL) tablet | Given | 11/01/19 | 650 mg | | | | 650 mg 650 mg, Oral, EVERY 8 | | 17 6:32 | | | | | HOURS (3 times per day), First | | AM PDT | | | | | dose (after last modification) on | | | | | | | 10/25/16 at 1615, Discharge | | | | | | | Readmit | | | | | | + +--------+ +--------+------+------+ +-------+ +--------+---+---+ | Given | 10/31/19 | 650 mg | | | | | 17 9:00 | | | | | | PM PDT | | | | +-------+ +--------+---+---+ | Given | 10/31/19 | 650 mg | | | | | 17 1:00 | | | | | | PM PDT | | | | +-------+ +--------+---+---+ +---+---+ | | | +---+---+ + +-------+ +--------+---+---+ | acetaminophen (TYLENOL) tablet | Given | 11/02/19 | 650 mg | | | | 650 mg 650 mg, Oral, EVERY 6 | | 17 3:21 | | | | | HOURS PRN, Pain, Starting Tue | | AM PDT | | | | | 10/31/16 at 0815, Discharge | | | | | | | Readmit | | | | | | + +-------+ +--------+---+---+ +---+---+ | | | +---+---+ + +-------+ +--------+---+---+ | cholecalciferol (VITAMIN D-3) | Given | 11/02/19 | 1,000 | | | | tablet 1,000 Units 1,000 Units, | | 17 8:48 | Units | | | | Oral, DAILY, First dose on [place]i | | AM PDT | | | | | 10/26/16 at 1230 | | | | | | + +-------+ +--------+---+---+ +-------+ +--------+---+---+ | Given | 11/01/19 | 1,000 | | | | | 17 8:16 | Units | | | | | AM PDT | | | | +-------+ +--------+---+---+ | Given | 10/31/19 | 1,000 | | | | | 17 8:29 | Units | | | | | AM PDT | | | | +-------+ +--------+---+---+ +---+---+ | | | +---+---+ + +-------+ +--------+---+---+ | cycloSPORINE (RESTASIS) 0.05% | Given | 11/02/19 | 1 drop | | | | ophthalmic emulsion 1 drop 1 | | 17 8:48 | | | | | drop, Both Eyes, 2 TIMES DAILY, | | AM PDT | | | | | First dose (after last | | | | | | | modification) on Sun10/25/16 at | | | | | | | 2100, Hazardous: Use appropriate | | | | | | | handling precautions., Discharge | | | | | | | Readmit | | | | | | + +-------+ +--------+---+---+ +-------+ +--------+---+---+ | Given | 11/01/19 | 1 drop | | | | | 17 9:39 | | | | | | PM PDT | | | | +-------+ +--------+---+---+ | Given | 11/01/19 | 1 drop | | | | | 17 8:15 | | | | | | AM PDT | | | | +-------+ +--------+---+---+ +---+---+ | | | +---+---+ + +-------+ +-------+---+ + | enoxaparin (LOVENOX) 40 mg/0.4 | Given | 11/02/19 | 40 mg | | Abdomen- | | mL injection 40 mg 40 mg, | | 17 8:48 | | | RUQ | | Subcutaneous, EVERY 24 HOURS | | AM PDT | | | | | (Daily), First dose (after last | | | | | | | modification) on [facility] 10/26/16 at | | | | | | | 0900, Discharge Readmit | | | | | | + +-------+ +-------+---+ + +-------+ +-------+---+ + | Given | 11/01/19 | 40 mg | | Abdomen- | | | 17 8:15 | | | RLQ | | | AM PDT | | | | +-------+ +-------+---+ + | Given | 10/31/19 | 40 mg | | Abdomen- | | | 17 8:29 | | | LLQ | | | AM PDT | | | | +-------+ +-------+---+ + +---+---+ | | | +---+---+ + +-------+ +--------+---+---+ | gabapentin (NEURONTIN) capsule | Given | 11/01/19 | 300 mg | | | | 300 mg 300 mg, Oral, NIGHTLY, | | 17 9:40 | | | | | First dose on [facility] 10/26/16 at 2100 | | PM PDT | | | | + +-------+ +--------+---+---+ +-------+ +--------+---+---+ | Given | 10/31/19 | 300 mg | | | | | 17 8:59 | | | | | | PM PDT | | | | +-------+ +--------+---+---+ | Given | 10/30/19 | 300 mg | | | | | 17 9:20 | | | | | | PM PDT | | | | +-------+ +--------+---+---+ +---+---+ | | | +---+---+ + +-------+ +------+---+---+ | HYDROmorphone (DILAUDID) tablet | Given | 11/02/19 | 2 mg | | | | 1-2 mg 1-2 mg, Oral, EVERY 3 | | 17 8:45 | | | | | HOURS PRN, Pain, Starting Wed | | AM PDT | | | | | 10/25/16 at 1558, First dose must | | | | [...] | | | | | Sedation Scale., Discharge | | | | | | | Readmit | | | | | | + +-------+ +------+---+---+ +-------+ +------+---+---+ | Given | 10/27/19 | 1 mg | | | | | 17 4:44 | | | | | | AM PDT | | | | +-------+ +------+---+---+ +---+---+ | | | +---+---+ + +-------+ +--------+---+---+ | iron polysaccharides (NIFEREX) | Given | 11/02/19 | 150 mg | | | | capsule 150 mg 150 mg, Oral, | | 17 8:48 | | | | | DAILY, First dose on [facility] 10/26/16 | | AM PDT | | | | | at 1230 | | | | | | + +-------+ +--------+---+---+ +-------+ +--------+---+---+ | Given | 11/01/19 | 150 mg | | | | | 17 8:15 | | | | | | AM PDT | | | | +-------+ +--------+---+---+ | Given | 10/31/19 | 150 mg | | | | | 17 8:29 | | | | | | AM PDT | | | | +-------+ +--------+---+---+ +---+---+ | | | +---+---+ + +-------+ +-------+---+---+ | pantoprazole (PROTONIX) DR | Given | 11/02/19 | 40 mg | | | | tablet 40 mg 40 mg, Oral, DAILY | | 17 6:42 | | | | | BEFORE BREAKFAST, First dose | | AM PDT | | | | | (after last modification) on [facility] | | | | | | | 10/26/16 at 0730, Do not cut or | | | | | | | crush., Discharge Readmit | | | | | | + +-------+ +-------+---+---+ +-------+ +-------+---+---+ | Given | 11/01/19 | 40 mg | | | | | 17 6:32 | | | | | | AM PDT | | | | +-------+ +-------+---+---+ | Given | 10/31/19 | 40 mg | | | | | 17 6:56 | | | | | | AM PDT | | | | +-------+ +-------+---+---+ +---+---+ | | | +---+---+ + +-------+ +------+---+---+ | pilocarpine (SALAGEN) tablet 5 | Given | 11/02/19 | 5 mg | | | | mg 5 mg, Oral, 4 TIMES DAILY, | | 17 8:48 | | | | | First dose (after last | | AM PDT | | | | | modification) on Sun10/25/16 at | | | | | | | 1700, Discharge Readmit | | | | | | + +-------+ +------+---+---+ +-------+ +------+---+---+ | Given | 11/01/19 | 5 mg | | | | | 17 9:40 | | | | | | PM PDT | | | | +-------+ +------+---+---+ | Given | 11/01/19 | 5 mg | | | | | 17 5:32 | | | | | | PM PDT | | | | +-------+ +------+---+---+ +---+---+ | | | +---+---+ + +-------+ +---------+---+---+ | probiotic formula capsule 1 | Given | 11/02/19 | 1 | | | | capsule 1 capsule, Oral, DAILY | | 17 8:48 | capsule | | | | WITH BREAKFAST, First dose (after | | AM PDT | | | | | last modification) on [facility] | | | | | | | 10/26/16 at 0800, Do not open or | | | | | | | crush., Discharge Readmit | | | | | | + +-------+ +---------+---+---+ +-------+ +---------+---+---+ | Given | 11/01/19 | 1 | | | | | 17 6:33 | capsule | | | | | AM PDT | | | | +-------+ +---------+---+---+ | Given | 10/31/19 | 1 | | | | | 17 8:29 | capsule | | | | | AM PDT | | | | +-------+ +---------+---+---+ +---+---+ | | | +---+---+ documented in this encounter
--- OUTSIDE RECORDS SUMMARY | ~2019-07-02 | XMS | Encounter Summary ---
Demographics + + + | Address | [address] | | | [place] [address] | + + + | Home Phone [...] | Author | [facility] | | | and Primo | + + + | Organization | [facility] | | | and [place] | [...] [place], [place] | | | | | [address] | | + + + + + | Dalton Fernandez | ECON | Unknown | | + + + + + | Juana Fernandez | ECON | Unknown | | + + + + + Care Team Providers + +------+ + | Care Law Firm Consultant Name | Role | Phone | [...] ) | | | | [facility] [address] | [place] [address] | | | | | [place] | [phone] | | | | | [address] | | | | | | [phone] | | | +--------+ + + + [...] [place] | | | | | | [id number] | | | | | | | | +--------+---------+ + + + documented as of this encounter Visit Diagnoses Not on filedocumented in this encounter"
--- OUTSIDE RECORDS SUMMARY | ~2019-07-02 | XMS | Encounter Summary ---
Demographics + + + | Address | [address] | | | [place] [address] | + + + | Home Phone [...] + | Author | [facility] | | | and Primo | + + + | Organization | [facility] | | | [...] [place], [place] | | | | | [address] | | + + + + + | Dalton Fernandez | ECON | Unknown | | + + + + + | Juana Fernandez | ECON | Unknown | | + + + + + Care Team Providers + +------+ + | Care Entry Level Management Name | Role | Phone | + +------+ + | Dutch Rodriguez DO | PCP | | + +------+ + Encounter Details +--------+ + + + + | Date | Type | Department | Care Team | Description | +--------+ + + + + | 04/30/ | [facility] | [facility] | Ramin Bess | Pelvic cyst | | 2015 | Encounter | MED CTR ULTRASOUND | MD Lisa [address] [place] [address] | | | | | [address] [place] | [place] | | | | | [place] | [address] | | | | | [address] | | | | | | [phone] | Anyi Cohen | | | | | | A, Technologist | | | | | | [place] | | | | | | [address] | | +--------+ + + + + [...] [place] | | | | | | [address] | | | | | | | [...] knee prosthesis planning MRI COMPARISON: Knee prosthesis [facility] | | planning MR images April 27 [...] [address] | [place] | [phone] | | [facility] | | [address] | | | - IMAGING | | | | + + + + + documented in this encounter Visit Diagnoses + + | Diagnosis | + + | Pelvic cyst Other specified symptom associated with female genital organs | + + documented in this encounter"
--- OUTSIDE RECORDS SUMMARY | ~2019-07-02 | XMS | Encounter Summary ---
Demographics + + + | Address | [address] | | | [place] [address] | + + + | Home Phone [...] | [facility] | | | and Primo | + + + | Organization | [facility] | | | and [place] [...] [place], [place] | | | | | [address] | | + + + + + | Dalton Fernandez | ECON | Unknown | | + + + + + | Juana Fernandez | ECON | Unknown | | + + + + + Care Team Providers + +------+ + | Care Celebrity Chef Entrepreneur Media Personality Name | Role | Phone | + [...] Arthroplasty | | | | [address] | [place], [place] | | | | | [place], [place] | [address] | | | | | [address] | | | | | | [phone] | | | +--------+---------+ + + + [...] controlled. Hospital Course: Pt was admitted to [facility] for a Right knee total Arthropl asty. [...] PA-C 05/28/2015. This not was dictated using [employer] Voice recognition system. There may be minor [...] maco or screws may be removed. [employer] [address] [place], [place] [id number]. All righ ts reserved. This information is [...] also affect oth er joints nearby. [employer] [address] [place] [address]. All righ ts reserved. This information is [...] Cycling and swimming are good choice s. [id number] [employer] [address] [place] [address]. All righ ts reserved. This information is [...] by your healthcare provider Worsening joint pain [id number] [employer] [address] [place] [address]. All righ ts reserved. This information is [...] can be very helpful for rheumatoid arthritis. [phone] [employer] [address] [place] [address]. All righ ts reserved. This information is not intended as a substitute for professional medical care. Always follow your healthcare professional's instructions. AttachmentsThe following attachments cannot be sent through Care Everywhere.KNEE REPLACEMEN T, AFTER: HOSPITAL RECOVERY (SINGAPOREAN)KNEE REPLACEMENT, AFTER: KEEPING YOUR KNEE HEALTHY (TALIA PEDRAZA)KNEE REPLACEMENT, AFTER: RIGHT AFTER SURGERY (SINGAPOREAN)documented in this encounter Medications at Time of [...] has been changed since signin Order [facility] [place] b complex vitamins tablet (Taking) Take 1 tablet by mouth Daily. Liquid B Complex Number of times this order has been changed since signin Order [facility] [place] Calcium Carbonate (CALCIUM 600 PO) (Taking) Take by mouth in the morning and in the even ing. Number of times this order has been changed since signin Order [facility] [place] Carboxymethylcellulose Sodium (REFRESH PLUS OP) (Taking) Apply to eye as needed. Number of times this order has been changed since signin Order [facility] [place] cholecalciferol (VITAMIN D-3) 2000 UNITS TABS (Taking) Take 1,000 Units by mouth Daily. Number of times this order has been changed since signin Order [facility] [place] CRANBERRY FRUIT PO (Taking) Take 200 mg by mouth in the morning and in the evening. Number of times this order has been changed since signin Order [facility] [place] cyclobenzaprine (FLEXERIL) 10 mg tablet (Taking) Take 1 tablet by mouth every 8 hours as needed for Muscle spasms. Number of times this order has been changed since signin Order [facility] [place] CycloSPORINE (RESTASIS OP) (Taking) Apply 1 drop to eye nightly. Number of times this order has been changed since signin Order [facility] [place] IRON PO (Taking) Take by mouth in the morning and in the evening. Number of times this order has been changed since signin Order [facility] [place] Loratadine (CLARITIN PO) (Taking) Take by mouth in the morning and in the evening. Number of times this order has been changed since signin Order [facility] [place] minocycline (DYNACIN) 50 MG tablet (Taking) Take 50 mg by mouth every morning. Number of times this order has been changed since signin Order [facility] [place] omeprazole (PRILOSEC) 20 mg capsule (Taking) Take 20 mg by mouth nightly. Number of times this order has been changed since signin Order [facility] [place] Pediatric Multiple Vitamins (FLINTSTONES MULTIVITAMIN PO) (Taking) Take by mouth every m orning. Number of times this order has been changed since signin Order [facility] [place] pilocarpine (SALAGEN) 5 mg tablet (Taking) Take 5 mg by mouth 4 times daily. Number of times this order has been changed since signin Order [facility] [place] Probiotic Product (PROBIOTIC FORMULA) CAPS (Taking) Take 1 capsule by mouth daily (with b reakfast). Number of times this order has been changed since signin Order [facility] [place] ASSESSMENT/PLAN: 1. Right total knee replacement A. Pt comfortable and stable. Anxious to be d/c today. Follow up in our office as karoul ed B. Patient is advised that if they have any questions, comments or concerns to contact our office. Electronically signed by: Zachery Soria PA-C 05/29/2015 7:18 This note was dictated using the Vy[employer] voice recognition system. Minor errors in grammar [...] has been changed since signin Order [facility] [place] b complex vitamins tablet (Taking) Take 1 tablet by mouth Daily. Liquid B Complex Number of times this order has been changed since signin Order [facility] [place] Calcium Carbonate (CALCIUM 600 PO) (Taking) Take by mouth in the morning and in the even ing. Number of times this order has been changed since signin Order [facility] [place] Carboxymethylcellulose Sodium (REFRESH PLUS OP) (Taking) Apply to eye as needed. Number of times this order has been changed since signin Order [facility] [place] cholecalciferol (VITAMIN D-3) 2000 UNITS TABS (Taking) Take 1,000 Units by mouth Daily. Number of times this order has been changed since signin Order [facility] [place] CRANBERRY FRUIT PO (Taking) Take 200 mg by mouth in the morning and in the evening. Number of times this order has been changed since signin Order [facility] [place] cyclobenzaprine (FLEXERIL) 10 mg tablet (Taking) Take 1 tablet by mouth every 8 hours as needed for Muscle spasms. Number of times this order has been changed since signin Order [facility] [place] CycloSPORINE (RESTASIS OP) (Taking) Apply 1 drop to eye nightly. Number of times this order has been changed since signin Order [facility] [place] IRON PO (Taking) Take by mouth in the morning and in the evening. Number of times this order has been changed since signin Order [facility] [place] Loratadine (CLARITIN PO) (Taking) Take by mouth in the morning and in the evening. Number of times this order has been changed since signin Order [facility] [place] minocycline (DYNACIN) 50 MG tablet (Taking) Take 50 mg by mouth every morning. Number of times this order has been changed since signin Order [facility] [place] omeprazole (PRILOSEC) 20 mg capsule (Taking) Take 20 mg by mouth nightly. Number of times this order has been changed since signin Order [facility] [place] Pediatric Multiple Vitamins (FLINTSTONES MULTIVITAMIN PO) (Taking) Take by mouth every m orning. Number of times this order has been changed since signin Order [facility] [place] pilocarpine (SALAGEN) 5 mg tablet (Taking) Take 5 mg by mouth 4 times daily. Number of times this order has been changed since signin Order [facility] [place] Probiotic Product (PROBIOTIC FORMULA) CAPS (Taking) Take 1 capsule by mouth daily (with b reakfast). Number of times this order has been changed since signin Order [facility] [place] ASSESSMENT/PLAN: 1. Right total knee replacement A. [...] 12:20 This note was dictated using the Vycon voice recognition system. Minor errors in grammar [...] has been changed since signin Order [facility] [place] b complex vitamins tablet (Taking) Take 1 tablet by mouth Daily. Liquid B Complex Number of times this order has been changed since signin Order [facility] [place] Calcium Carbonate (CALCIUM 600 PO) (Taking) Take by mouth in the morning and in the even ing. Number of times this order has been changed since signin Order [facility] [place] Carboxymethylcellulose Sodium (REFRESH PLUS OP) (Taking) Apply to eye as needed. Number of times this order has been changed since signin Order [facility] [place] cholecalciferol (VITAMIN D-3) 2000 UNITS TABS (Taking) Take 1,000 Units by mouth Daily. Number of times this order has been changed since signin Order [facility] [place] CRANBERRY FRUIT PO (Taking) Take 200 mg by mouth in the morning and in the evening. Number of times this order has been changed since signin Order [facility] [place] cyclobenzaprine (FLEXERIL) 10 mg tablet (Taking) Take 1 tablet by mouth every 8 hours as needed for Muscle spasms. Number of times this order has been changed since signin Order [facility] [place] CycloSPORINE (RESTASIS OP) (Taking) Apply 1 drop to eye nightly. Number of times this order has been changed since signin Order [facility] [place] IRON PO (Taking) Take by mouth in the morning and in the evening. Number of times this order has been changed since signin Order [facility] [place] Loratadine (CLARITIN PO) (Taking) Take by mouth in the morning and in the evening. Number of times this order has been changed since signin Order [facility] [place] minocycline (DYNACIN) 50 MG tablet (Taking) Take 50 mg by mouth every morning. Number of times this order has been changed since signin Order [facility] [place] omeprazole (PRILOSEC) 20 mg capsule (Taking) Take 20 mg by mouth nightly. Number of times this order has been changed since signin Order [facility] [place] Pediatric Multiple Vitamins (FLINTSTONES MULTIVITAMIN PO) (Taking) Take by mouth every m orning. Number of times this order has been changed since signin Order [facility] [place] pilocarpine (SALAGEN) 5 mg tablet (Taking) Take 5 mg by mouth 4 times daily. Number of times this order has been changed since signin Order [facility] [place] Probiotic Product (PROBIOTIC FORMULA) CAPS (Taking) Take 1 capsule by mouth daily (with b reakfast). Number of times this order has been changed since signin Order [facility] [place] ASSESSMENT/PLAN: 1. Total right knee arthroplasty A. [...] 8:21 This note was dictated using the Vycon voice recognition system. Minor errors in grammar [...] [place] | | | | | | [id number] | | | | | | | [...] + | [facility] | [address] | [place] | [phone] | | [facility] | | [address] | | | - LABORATORY | | [...] mL/min/1.73m2 | [facility] | | | [facility] | RATE,ESTIMATED | | MEDICAL | | | | mL/min/1.53z6Dbtv than | | CENTER - | | [...] ST. | [address] | [place], [place] | [phone] | | [facility] | | [address] | | | - LABORATORY | | [...]
--- OUTSIDE RECORDS SUMMARY | ~2019-07-02 | XMS | Encounter Summary ---
Demographics + + + | Address | [address] | | | [place] [address] | + + + | Home Phone [...] Author | [facility] | | | and Primo | + + + | Organization | [facility] [...] [place], [place] | | | | | [address] | | + + + + + | Dalton Fernandez | ECON | Unknown | | + + + + + | Juana Fernandez | ECON | Unknown | | + + + + + Care Team Providers + +------+ + | Care Marine Diesel Mechanic Name | Role | Phone [...] + + | 09/06/ | Telephone | [facility] | Ramin Bess | Other | | 2019 | | ORTHOPEDIC SURGERY | MD Lisa [address] [facility] | | | | | [address] [facility] | [place], [place] | | | | | [place], [place] | [address] | | | | | [address] | | | | | | [phone] | | | +--------+ + + + [...]
--- OUTSIDE RECORDS SUMMARY | ~2019-07-02 | XMS | Encounter Summary ---
Demographics + + + | Address | [address] | | | [place] [address] | + + + | Home Phone [...] [place], [place] | | | | | [address] | | + + + + + | Dalton Fernandez | ECON | Unknown | | + + + + + | Juana Fernandez | ECON | Unknown | | + + + + + Care Team Providers + +------+ + | Care Hand Meat Salter Name | Role | Phone | + [...] Primary | Ramin Gonzalez, | [address] | | | | | localized | MD [address] | [place], | | | | | osteoarthros | [address] | [place] | | | | | is, lower | [place], | [address] | | | | | leg, right | [place] [address] | Phone: | | | | | Fitting and | Phone: | [phone] | | | | | adjustment | [phone] | Fax: | | | | | of | Fax: | [phone] | | | | | unspecified | [phone] | | | | | | prosthetic | | | | | | | device | | | | | | | Procedures | | | | | | | MRI Knee | | | | | | | Right wo | | | | | | | Contrast PA | | | | | | | [...] Primary | Ramin L, | [address] | | | | | localized | MD [address] | [place], | | | | | osteoarthros | [address] | [place] | | | | | is, lower | [place], | [address] | | | | | leg, right | [place] [address] | Phone: | | | | | Fitting and | Phone: | [phone] | | | | | adjustment | [phone] | Fax: | | | | | of | Fax: | [phone] | | | | | unspecified | [phone] | | | | | | prosthetic | | | | | | | device | | | | | | | Procedures | | | | | | | MRI Knee | | | | | | | Right wo | | | | | | | Contrast PA | | | | | | | [...] + + | 04/27/ | Hospital | [facility] | Ramin Bess | Primary localized | | 2014 | Encounter | MED CTR MRI [address] | MD Lisa [address] [place] [address] | osteoarthrosis, | | | | [address] [place], | [place], [place] | lower leg, right; | | | | [place] [address] | [address] | Fitting and | | | | [phone] | | adjustment of | | | [...] ST. | [address] | [place], [place] | [phone] | | [facility] | | [address] | | | - IMAGING | | | | + + + + + documented in this encounter Visit Diagnoses + + | Diagnosis | + + | Primary localized osteoarthrosis, lower leg, right | + + | Fitting and adjustment of unspecified prosthetic device | + + documented in this encounter"
--- OUTSIDE RECORDS SUMMARY | ~2019-07-02 | XMS | Encounter Summary ---
Demographics + + + | Address | [address] | | | [place] [address] | + + + | Home Phone [...] + | Author | [facility] | | | and Primo | + + + | Organization | [facility] [...] [place], [place] | | | | | [address] | | + + + + + | Dalton Fernandez | ECON | Unknown | | + + + + + | Juana Fernandez | ECON | Unknown | | + + + + + Care Team Providers + +------+ + | Care Pumper Hand Name | Role | Phone | [...] | 09/01/ | Telephone | [facility] | Douglas Nuñez MD | Other | | 2014 | | NEUROSURGERY [address] | [address] | | | | | [facility] [address] | [place] [address] | | | | | [place] | [phone] | | | | | [address] | | | | | | [phone] | | | +--------+ + + + [...]
--- OUTSIDE RECORDS SUMMARY | ~2019-07-02 | XMS | Encounter Summary ---
Demographics + + + | Address | [address] | | | [place] [address] | + + + | Home Phone [...] | [facility] | | | and Primo | + + + | Organization | [facility] | | [...] [place], [place] | | | | | [address] | | + + + + + | Dalton Fernandez | ECON | Unknown | | + + + + + | Juana Fernandez | ECON | Unknown | | + + + + + Care Team Providers + +------+ + | Care Arabic Linguist Name | Role | Phone | + [...] + + | 10/16/ | Refill | [facility] | Zachery Soria | Medication Refill | | 2018 | | ORTHOPEDIC SURGERY | [address] | | | | | [address] [facility] | [facility] | | | | | [place] | [place] [address] | | | | | [address] | [phone] | | | | | [phone] | | | +--------+--------+ + + + [...] [place] | | | | | | [address] | | | | | | | | +--------+---------+ + + + documented as of this encounter Visit Diagnoses Not on filedocumented in this encounter"
--- OUTSIDE RECORDS SUMMARY | ~2019-07-02 | XMS | Encounter Summary ---
Demographics + + + | Address | [address] | | | [place] [address] | + + + | Home Phone | | + + + | Preferred Language | Unknown | + + + | Marital Status | | + + + | Congregation Affiliation | 1076 | + + + | Race | Unknown | + + + | Ethnic Group | Unknown | + + + Author + + + | Author | [facility] | | | and Primo | + + + | Organization | [facility] | | | [...] [place], [place] | | | | | [address] | | + + + + + | Dalton Fernandez | ECON | Unknown | | + + + + + | Juana Fernandez | ECON | Unknown | | + + + + + Care Team Providers + +------+ + | Care French Professor Name | Role | Phone | + [...] + + | 03/16/ | Office | [facility] | Zachery Soria | Status post total | | 2016 | Visit | ORTHOPEDIC SURGERY | [address] | knee replacement, | | | | [address] [facility] | [place] | left (Primary Dx) | | | | [place] | [place] [address] | | | | | [address] | [phone] | | | | | [phone] | | | +--------+---------+ + + + [...] well controlled. She continues with PT at [facility] and on an out patient basis. Recommended today that she continue w/ PT at the left knee. Continue to be full wt bearing. Follow up in ~ 4 wks for reevaluation. B. Patient is advised that if they have any questions, comments or concerns to contact our office. Electronically signed by: Zachery Soria PA-C 03/16/2016 19:38 This note was dictated using the [employer] voice recognition system. Minor errors in grammar [...] physical therapy on an outpatient basis at [facility]. Visit range of motion continues to improve. [...] well controlled. She continues with PT at [facility] and on an out patient basis. Recommended today that she continue w/ PT at the left knee. Continue to be full wt bearing. Follow up in ~ 4 wks for reevaluation. B. Patient is advised that if they have any questions, comments or concerns to contact our office. Electronically signed by: Zachery Soria PA-C 03/16/2016 19:38 This note was dictated using the [employer] voice recognition system. Minor errors in grammar may have occurred. documented in t his encounter Plan of Treatment +--------+---------+ + + + | Date | Type | Specialty | Care Team | Description | +--------+---------+ + + + | 07/22/ | Office | Orthopedic Surgery | Ramin Bess | | | 2018 | Visit | | MD Lisa [facility] [place] | | | | | | [place] | | | | | | [address] | | | | | | | | +--------+---------+ + + + documented as of this encounter Visit Diagnoses + + | Diagnosis | + + | Status post total knee replacement, left - Primary | + + documented in this encounter
--- OUTSIDE RECORDS SUMMARY | ~2019-07-02 | XMS | Encounter Summary ---
Demographics + + + | Address | [address] | | | [place] [address] | + + + | Home Phone [...] Author | [facility] | | | and Primo | + + + | Organization | [facility] | | | and [...] [place], [place] | | | | | [address] | | + + + + + | Dalton Fernandez | ECON | Unknown | | + + + + + | Juana Fernandez | ECON | Unknown | | + + + + + Care Team Providers + +------+ + | Care Granite Cutter Apprentice Name | Role | Phone | [...] Lisa [address] [facility] | | | | | [address] [facility] | [place] | | | | | [place] | [address] | | | | | [address] | | | | | | [phone] | | | +--------+--------+ + + + [...] [place] | | | | | | [address] | | | | | | | | +--------+---------+ + + + documented as of this encounter Visit Diagnoses Not on filedocumented in this encounter"
--- OUTSIDE RECORDS SUMMARY | ~2019-07-02 | XMS | Encounter Summary ---
Demographics + + + | Address | [address] | | | [place] [address] | + + + | Home Phone | | + + + | Preferred Language | Unknown | + + + | Marital Status | | + + + | Orthodoxy Affiliation | 1076 | + + + | Race | Unknown | + + + | Ethnic Group | Unknown | + + + Author + + + | Author | [facility] | | | and Primo | + + + | Organization | [facility] | | | and [place] | [...] [place], [place] | | | | | [address] | | + + + + + | Dalton Fernandez | ECON | Unknown | | + + + + + | Juana Fernandez | ECON | Unknown | | + + + + + Care Team Providers + +------+ + | Care Secondary History Teacher Name | Role | Phone | [...] | | | | | Lumbar | [place], | [address] | | | | | radiculopath | [place] [address] | Phone: | | | | | y S/P | Phone: | [phone] | | | | | lumbar | [phone] | Fax: | | | | | fusion | Fax: | [phone] | | | | | | [phone] | | +--------+ + + + + [...] (Primary Dx); Lumbar | | | | [place], [place] | [place], [place] | radiculopathy; S/P | | | | [address] | [address] | lumbar fusion | | | | [phone] | | | +--------+ + + + [...] your back and use good technique when last picker things and bending. Electronic[employer] lly signed by MIREYA Martinez at 07/22/2014 1:34 PM PST documented in this encounter Progress Notes Nino Hurst PA - 07/22/2014 1:38 PM PSTFormatting of this note might be differen t from the original. MIREYA Estrella [address] [place] [address], [address] [place] [address] FAX: NEUROSURGERY SURGICAL FOLLOW-UP CHIEF COMPLAINT: Chief [...] [place] | | | | | | [address] | | | | | | | [...] [address] | [place] | [phone] | | [facility] | | [address] | | | - IMAGING | | [...]
--- OUTSIDE RECORDS SUMMARY | ~2019-07-02 | XMS | Encounter Summary ---
Demographics + + + | Address | [address] | | | [place] [address] | + + + | Home Phone [...] + | Author | [facility] | | | and Primo | + + + | Organization | [facility] | [...] [place], [place] | | | | | [address] | | + + + + + | Dalton Fernandez | ECON | Unknown | | + + + + + | Juana Fernandez | ECON | Unknown | | + + + + + Care Team Providers + +------+ + | Care Placement Secretary Name | Role | Phone | [...] | ORTHOPEDIC SURGERY | MD Lisa [address] [facility] | | | | | [address] [facility] | [facility] [place] | | | | | [place] | [address] | | | | | [address] | | | | | | [phone] | | | +--------+--------+ + + + [...] [place] | | | | | | [address] | | | | | | | | +--------+---------+ + + + documented as of this encounter Visit Diagnoses Not on filedocumented in this encounter"
--- OUTSIDE RECORDS SUMMARY | ~2019-07-02 | XMS | Encounter Summary ---
Demographics + + + | Address | [address] | | | [place] [address] | + + + | Home Phone | | + + + | Preferred Language | Unknown | + + + | Marital Status | | + + + | Mandaen Affiliation | 1076 | + + + | Race | Unknown | + + + | Ethnic Group | Unknown | + + + Author + + + | Author | [facility] | | | and Primo | + + + | Organization | [facility] | | | and [place] [...] [place], [place] | | | | | [address] | | + + + + + | Dalton Fernandez | ECON | Unknown | | + + + + + | Juana Fernandez | ECON | Unknown | | + + + + + Care Team Providers + +------+ + | Care Lead Network Engineer Name | Role | Phone | + +------+ + | Dutch Rodriguez DO | PCP | | + +------+ + Encounter Details +--------+ + + + + | Date | Type | Department | Care Team | Description | +--------+ + + + + | 03/13/ | Hospital | [facility] | Douglas Nuñez MD | Back pain | | 2013 | Encounter | MED CTR XRAY [address] | [address] | | | | | [place] | [place] [address] | | | | | [place] [address] | [phone] | | | | | [phone] | | | +--------+ + + + [...] [place] | | | | | | [address] | | | | | | | [...] COMPARISON: LUMBAR MRI DECEMBER 03, 2013 FROM [facility] | LAB | | HOSPITAL FINDINGS: [...] painCOMPARISON: LUMBAR MRI DECEMBER 03, 2013 FROM [facility] | | HOSPITALFINDINGS: AP, lateral bending [...] + | MISCELLANEOUS LAB | | | [phone] | + +---------+ + + | MISCELANIOUS LAB | | | [phone] | + +---------+ + + documented in this encounter Visit Diagnoses + + | Diagnosis | + + | Back pain Backache, unspecified | + + documented in this encounter"
--- OUTSIDE RECORDS SUMMARY | ~2019-07-02 | XMS | Encounter Summary ---
Demographics + + + | Address | [address] | | | [place] [address] | + + + | Home Phone [...] | Author | [facility] | | | and Primo | + + + | Organization | [facility] | | [...] [place], [place] | | | | | [address] | | + + + + + | Dalton Fernandez | ECON | Unknown | | + + + + + | Juana Fernandez | ECON | Unknown | | + + + + + Care Team Providers + +------+ + | Care Ordained Minister Name | Role | Phone | + +------+ + | Dutch Rodriguez DO | PCP | | + +------+ + Encounter Details +--------+ + + + + | Date | Type | Department | Care Team | Description | +--------+ + + + + | 06/10/ | [facility] | [facility] | Douglas Nuñez MD | Gastric reflux; | | 2013 | Encounter | MED CTR | [address] | Migraine; | | | | ELECTRODIAGNOSTICS | [place] [address] | Preoperative | | | | [address] | [phone] | clearance | | | | [place] [address] | | | | | | [phone] | | | +--------+ + + + [...] [place] | | | | | | [address] | | | | | | | [...]
--- OUTSIDE RECORDS SUMMARY | ~2019-07-02 | XMS | Encounter Summary ---
Demographics + + + | Address | [address] | | | [place] [address] | + + + | Home Phone [...] | [facility] | | | and Primo | + + + | Organization | [facility] | | | and [place] [...] [place], [place] | | | | | [address] | | + + + + + | Dalton Fernandez | ECON | Unknown | | + + + + + | Juana Fernandez | ECON | Unknown | | + + + + + Care Team Providers + +------+ + | Care Supervisor Pig Machine Name | Role | Phone | [...] | | | | | | [place] [facility] | | | | | | [...] + + | 06/17/ | Hospital | [facility] | Douglas Nuñez MD | | | 2013 - | Encounter | MED CTR SURGICAL | [address] | | | | | [address] | [place] [address] | | | 06/19/ | | [place] [address] | [phone] | | | 2013 | | [phone] | | | +--------+ + + + [...] might be different from t dontae original. [facility] NEUROSURGERY DISCHARGE SUMMARY Patient Name: Mike [...] MIREYA Salas - 06/18/2014 2:25 PM PST [facility] PROGRESS NOTE Pt. Name/Age/: Mike Fernandez 63 y.o. 1950 Med. Record Number: [id number] Date of admission: 06/17/2014 Subjective: The patient [...] [place] | | | | | | [address] | | | | | | | [...] + | MISCELLANEOUS LAB | | | [phone] | + +---------+ + + | MISCELANIOUS LAB | | | [phone] | + +---------+ + + documented in [...] | | | | | | use [place] 10/325 if ordered. If | | | [...]
--- OUTSIDE RECORDS SUMMARY | ~2019-07-02 | XMS | Encounter Summary ---
Demographics + + + | Address | [address] | | | [place] [address] | + + + | Home Phone [...] + | Author | [facility] | | | and Primo | + + + | Organization | [facility] [...] [place], [place] | | | | | [address] | | + + + + + | Dalton Fernandez | ECON | Unknown | | + + + + + | Juana Fernandez | ECON | Unknown | | + + + + + Care Team Providers + +------+ + | Care Clinical Data Abstractor Name | Role | Phone | + +------+ + | Dutch Rodriguez DO | PCP | | + +------+ + Encounter Details +--------+ + + + + | Date | Type | Department | Care Team | Description | +--------+ + + + + | 03/16/ | [facility] | [facility] | Zachery Soria | | | 2016 | Encounter | MED CTR XRAY [address] | [address] | | | | | [place] | [facility] | | | | | [place] [address] | [place] [address] | | | | | [phone] | [phone] | | | | | | | [...] | MD Swathi Gonzalez [facility] | | | | | | [place] | | | | | | [address] | | | | | | | [...] [address] | [place] | [phone] | | [facility] | | [address] | | | - IMAGING | | | | + + + + + documented in this encounter Visit Diagnoses Not on filedocumented in this encounter"
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
--- OUTSIDE RECORDS SUMMARY | ~2019-07-02 | XMS | Encounter Summary ---
Demographics + + + | Address | [address] | | | [place] [address] | + + + | Home Phone [...] | Author | [facility] | | | and Primo | + + + | Organization | [facility] | [...] [place], [place] | | | | | [address] | | + + + + + | Dalton Fernandez | ECON | Unknown | | + + + + + | Juana Fernandez | ECON | Unknown | | + + + + + Care Team Providers + +------+ + | Care Classroom Technology Technician Name | Role | Phone | [...] | | | | | | | HI TOTAL | | | | | | [...] | | | | | [address] | [address] [facility] | | | | | [place], [place] | [place] [address] | | | | | [address] | [phone] | | | | | [phone] | | | +--------+ + + + [...] +----+---+ + + | | 0 | Sundown | | | | 8 | 43-degrees [...] +----+---+ + + | | 0 | Sundown off | | | | 9 | [...] 0000 by | | eral | Wrist; uuzt-dok-aigugc catheter | Sabrina Horton RN | Amaris [...] [place] | | | | | | [phone] | | | | | | | [...]
--- OUTSIDE RECORDS SUMMARY | ~2019-07-02 | XMS | Encounter Summary ---
Demographics + + + | Address | [address] | | | [place] [address] | + + + | Home Phone [...] Author | [facility] | | | and Primo | + + + | Organization | [facility] | | [...] [place], [place] | | | | | [address] | | + + + + + | Dalton Fernandez | ECON | Unknown | | + + + + + | Juana Fernandez | ECON | Unknown | | + + + + + Care Team Providers + +------+ + | Care Dry Ice Machine Operator Name | Role | Phone | + +------+ + | Dutch Rodriguez DO | PCP | | + +------+ + Encounter Details +--------+ + + + + | Date | Type | Department | Care Team | Description | +--------+ + + + + | 12/26/ | Hospital | [facility] | Ramin Bess | Closed left | | 2017 | Encounter | MED CTR FABIAN XRAY | MD Lisa [address] [facility] | subtrochanteric | | | | [address] [place] | [place] | femur fracture, | | | | [place] | [address] | initial encounter | | | | [address] | | ([facility]) | | | | [phone] | | | +--------+ + + + [...] [place] | | | | | | [address] | | | | | | | [...] | SUBTROCHANTERIC FEMUR FRACTURE. COMPARISON: 10/22/2016 | [facility] | | FINDINGS: Interval progressive, but [...] [address] | [place] | [phone] | | [facility] | | [address] | | | - IMAGING | | | | + + + + + documented in this encounter Visit Diagnoses + + | Diagnosis | + + | Closed left subtrochanteric femur fracture, initial encounter (HCC) | + + documented in this encounter"
--- OUTSIDE RECORDS SUMMARY | ~2019-07-02 | XMS | Encounter Summary ---
Demographics + + + | Address | [address] | | | [place] [address] | + + + | Home Phone [...] | Author | [facility] | | | and Primo | + + + | Organization | [facility] | | | and [place] [...] [place], [place] | | | | | [address] | | + + + + + | Dalton Fernandez | ECON | Unknown | | + + + + + | Juana Fernandez | ECON | Unknown | | + + + + + Care Team Providers + +------+ + | Care Locator Specialist Name | Role | Phone | + +------+ + | Dutch Rodriguez DO | PCP | | + +------+ + Encounter Details +--------+ + + + + | Date | Type | Department | Care Team | Description | +--------+ + + + + | 06/10/ | [facility] | [facility] | Douglas Nuñez MD | Gastric reflux; | | 2013 | Encounter | MED CTR | [address] | Migraine; | | | | ELECTRODIAGNOSTICS | [place] [address] | Preoperative | | | | [address] | [phone] | clearance | | | | [place] [address] | | | | | | [phone] | | | +--------+ + + + [...] [place] | | | | | | [address] | | | | | | | [...]
--- OUTSIDE RECORDS SUMMARY | ~2019-07-02 | XMS | Encounter Summary ---
Demographics + + + | Address | [address] | | | [place] [address] | + + + | Home Phone [...] | Author | [facility] | | | and Primo | + + + | Organization | [facility] | | | and [...] [place], [place] | | | | | [address] | | + + + + + | Dalton Fernandez | ECON | Unknown | | + + + + + | Juana Fernandez | ECON | Unknown | | + + + + + Care Team Providers + +------+ + | Care Sorority Mother Name | Role | Phone | + +------+ + | Dutch Rodriguez DO | PCP | | + +------+ + Encounter Details +--------+ + + + + | Date | Type | Department | Care Team | Description | +--------+ + + + + | 11/28/ | Hospital | [facility] | Ramin Bess | Closed left | | 2017 | Encounter | MED CTR FABIAN XRAY | MD Lisa [address] [facility] | subtrochanteric | | | | [address] [place] | [place] | femur fracture, | | | | [place] | [address] | initial encounter | | | | [address] | | ([facility]) | | | | [phone] | | | +--------+ + + + [...] | Visit | | MD Swathi Gonzalez [facility] | | | | | | [place] | | | | | | [address] | | | | | | | [...] Outside study dated October 22, 2016. | [facility] | | Intraoperative images October 23, 2016. [...] ST. | [address] | [place], [place] | [phone] | | [facility] | | [address] | | | - IMAGING | | | | + + + + + documented in this encounter Visit Diagnoses + + | Diagnosis | + + | Closed left subtrochanteric femur fracture, initial encounter (HCC) | + + documented in this encounter"
--- OUTSIDE RECORDS SUMMARY | ~2019-07-02 | XMS | Encounter Summary ---
Demographics + + + | Address | [address] | | | [place] [address] | + + + | Home Phone [...] Author | [facility] | | | and Primo | + + + | Organization | [facility] | | | and [...] [place], [place] | | | | | [address] | | + + + + + | Dalton Fernandez | ECON | Unknown | | + + + + + | Juana Fernandez | ECON | Unknown | | + + + + + Care Team Providers + +------+ + | Care Auto Finance Sales Rep Name | Role | Phone | [...] | ORTHOPEDIC SURGERY | MD Lisa [address] | Dx) | | | | [address] [facility] | [place] | | | | | [place] | [address] | | | | | [address] | | | | | | [phone] | | | +--------+ + + + [...] 2018 | Visit | | MD Lisa [address] [place] [address] | | | | | | [place] | | | | | | [address] | | | | | | | [...] prosthesis planning MRI COMPARISON: Knee prosthesis | [facility] | | planning MR images April [...] ST. | [address] | [place], [place] | [phone] | | [facility] | | [address] | | | - IMAGING | | | | + + + + + documented in this encounter Visit Diagnoses + + | Diagnosis | + + | Pelvic cyst - Primary Other specified symptom associated with female genital organs | + + documented in this encounter"
--- OUTSIDE RECORDS SUMMARY | ~2019-07-02 | XMS | Encounter Summary ---
Demographics + + + | Address | [address] | | | [place] [address] | + + + | Home Phone [...] | [facility] | | | and Primo | + + + | Organization | [facility] | | | and [place] | + + + | Address | Unknown | + + + | Phone | Unavailable | + + + Support + + + + + | Name | Relationship | Address | Phone | + + + + + | Deavng Fernandez | [place] | [address] | | | | | [place], [place] | | | | | [address] | | + + + + + | Dalton Fernandez | ECON | Unknown | | + + + + + | Juana Fernandez | ECON | Unknown | | + + + + + Care Team Providers + +------+ + | Care Esol Teacher Name | Role | Phone | [...] + + | 01/14/ | Office | [facility] | Zachery Soria | S/P orthopedic | | 2018 | Visit | ORTHOPEDIC SURGERY | [address] | surgery, follow-up | | | | [address] [facility] | [facility] [place] | exam (Primary Dx); | | | | [place] | [place] [address] | Sprain of collateral | | | | [address] | [phone] | ligament of left | | | | [phone] | | knee, initial | | | [...] 16:48 This note was dictated using the ison furniture voice recognition system. Minor errors in grammar may have occurred. documented in t his encounter Plan of Treatment +--------+---------+ + + + | Date | Type | Specialty | Care Team | Description | +--------+---------+ + + + | 07/22/ | Office | Orthopedic Surgery | Ramin Bess | | | 2018 | Visit | | MD Lisa [facility] [place]IAN | | | | | | [place] | | | | | | [phone] | | | | | | | [...]
--- OUTSIDE RECORDS SUMMARY | ~2019-07-02 | XMS | Encounter Summary ---
Demographics + + + | Address | [address] | | | [place] [address] | + + + | Home Phone | | + + + | Preferred Language | Unknown | + + + | Marital Status | | + + + | Yarsanism Affiliation | Unknown | + + + | Race | Unknown | + + + | Ethnic Group | Other Race | + + + Author + + + | Author | [facility] | + + + | Organization | [facility] | + + + | Address | Unknown | + + + | Phone | Unavailable | + + + Support + + +---------+ + | Name | Relationship | Address | Phone | + + +---------+ + | Pt None Per | ECON | Unknown | Unavailable | + + +---------+ + Care Team Providers + +------+ + | Care Head Track Coach Name | Role | Phone | [...] Pharmacy | | | | | | [address] | | | | | | [place], | | | | | | [place] [address] | | | | | | [phone] | | | +--------+ + + + [...]
--- OUTSIDE RECORDS SUMMARY | ~2019-07-02 | XMS | Encounter Summary ---
Demographics + + + | Address | [address] | | | [place] [address] | + + + | Home Phone [...] [facility] | | | and Primo | + + + | Organization | [facility] | [...] [place], [place] | | | | | [address] | | + + + + + | Dalton Fernandez | ECON | Unknown | | + + + + + | Juana Fernandez | ECON | Unknown | | + + + + + Care Team Providers + +------+ + | Care Interface Analyst Name | Role | Phone | [...] | ORTHOPEDIC SURGERY | MD Swathi Gonzalez [facility] | subtrochanteric | | | | [address] [facility] | [place] | femur fracture, | | | | [place] | [address] | initial encounter | | | | [address] | | ([facility]) (Primary Dx) | | | | [phone] | | | +--------+ + + + [...] [place] | | | | | | [address] | | | | | | | [...] Outside study dated October 22, 2016. | [facility] | | Intraoperative images October [...] + + | Performing | Address | City/State[facility] | Phone Number | | Organization | | | | + + + + + | [address] | [address] | [place] | [phone] | | [facility] | | [address] | | | - IMAGING | | | | + + + + + documented in this encounter Visit Diagnoses + + | Diagnosis | + + | Closed left subtrochanteric femur fracture, initial encounter (HCC) - Primary | + + documented in this encounter"
--- OUTSIDE RECORDS SUMMARY | ~2019-07-02 | XMS | Encounter Summary ---
Demographics + + + | Address | [address] | | | [place] [address] | + + + | Home Phone [...] Author | [facility] | | | and Primo | + + + | Organization | [facility] | [...] [place], [place] | | | | | [address] | | + + + + + | Dalton Fernandez | ECON | Unknown | | + + + + + | Juana Fernandez | ECON | Unknown | | + + + + + Care Team Providers + +------+ + | Care Certified Nurse Midwife Name | Role | Phone | + [...] + + | 05/09/ | Office | [facility] | Zachery Soria | Status post total | | 2016 | Visit | ORTHOPEDIC SURGERY | [address] | knee replacement, | | | | [address] [facility] | Josué Young | left (Primary Dx) | | | | [place] | [place] [address] | | | | | [address] | [phone] | | | | | [phone] | | | +--------+---------+ + + + [...] She is no t taking prescribed or oktg-wcm-cxiyznt pain medication. Pain remains well controlled. Fee [...] 16:21 This note was dictated using the GemPhones voice recognition system. Minor errors in grammar may have occurred. documented in t his encounter Plan of Treatment +--------+---------+ + + + | Date | Type | Specialty | Care Team | Description | +--------+---------+ + + + | 07/22/ | Office | Orthopedic Surgery | Ramin Bess | | | 2018 | Visit | | MD Lisa [address] [place] [address] | | | | | | [place] | | | | | | [address] | | | | | | | | +--------+---------+ + + + documented as of this encounter Visit Diagnoses + + | Diagnosis | + + | Status post total knee replacement, left - Primary | + + documented in this encounter
--- OUTSIDE RECORDS SUMMARY | ~2019-07-02 | XMS | Encounter Summary ---
Demographics + + + | Address | [address] | | | [place] [address] | + + + | Home Phone | | + + + | Preferred Language | Unknown | + + + | Marital Status | | + + + | Confucianist Affiliation | 1076 | + + + | Race | Unknown | + + + | Ethnic Group | Unknown | + + + Author + + + | Author | [facility] | | | and Primo | + + + | Organization | [facility] | [...] [place], [place] | | | | | [address] | | + + + + + | Dalton Fernandez | ECON | Unknown | | + + + + + | Juana Fernandez | ECON | Unknown | | + + + + + Care Team Providers + +------+ + | Care Semiconductor Bonder Name | Role | Phone | + +------+ + | Dutch Rodriguez DO | PCP | | + +------+ + Encounter Details +--------+ + + + + | Date | Type | Department | Care Team | Description | +--------+ + + + + | 01/25/ | Hospital | [facility] | Ramin Bess | Closed left | | 2017 | Encounter | MED CTR FABIAN XRAY | MD Lisa [address] [facility] | subtrochanteric | | | | [address] [place] | [place] | femur fracture, | | | | [place] | [address] | initial encounter | | | | [address] | | ([facility]); Left knee | | | | [phone] | | pain, unspecified | | | [...] Visit | | MD Swathi Gonzalez [facility] | | | | | | [place] | | | | | | [address] | | | | | | | [...] encounter | | | | | | ([facility]) Left knee | | | | | [...] proximal and distal interlocking screws | [facility] | | and unchanged appearance of the [...] ST. | [address] | [place] | [phone] | | [facility] | | [address] | | | - IMAGING | | | | + + + + + documented in this encounter Visit Diagnoses + + | Diagnosis | + + | Closed left subtrochanteric femur fracture, initial encounter (HCC) | + + | Left knee pain, unspecified chronicity | + + documented in this encounter"
--- OUTSIDE RECORDS SUMMARY | ~2019-07-02 | XMS | Encounter Summary ---
Demographics + + + | Address | [address] | | | [place] [address] | + + + | Home Phone [...] Author | [facility] | | | and Primo | + + + | Organization | [facility] | | | and [place] [...] [place], [place] | | | | | [address] | | + + + + + | Dalton Fernandez | ECON | Unknown | | + + + + + | Juana Fernandez | ECON | Unknown | | + + + + + Care Team Providers + +------+ + | Care National Accounts Sales Name | Role | Phone | [...] | | | leg, right | [place] [address] | [place], [place] | | | | | S/P | Phone: | [address] | | | | | orthopedic | [phone] | Phone: | | | | | surgery, | Fax: | [phone] | | | | | follow-up | [phone] | Fax: | | | | | exam | | [phone] | +--------+ + + + + + Reason for Visit +--------+ + | Reason | Comments | +--------+ + | Other | | +--------+ + Encounter Details +--------+ + + + + | Date | Type | Department | Care Team | Description | +--------+ + + + + | 06/01/ | Telephone | [facility] | Ramin Bess | Other | | 2014 | | ORTHOPEDIC SURGERY | MD Lisa [address] [facility] | | | | | [address] [facility] | [place], [place] | | | | | [place], [place] | [address] | | | | | [address] | | | | | | [phone] | | | +--------+ + + + [...] [place] | | | | | | [address] | | | | | | | [...]
--- OUTSIDE RECORDS SUMMARY | ~2019-07-02 | XMS | Encounter Summary ---
Demographics + + + | Address | [address] | | | [place] [address] | + + + | Home Phone [...] Author | Merged With [facility] | | | and Primo | + + + | Organization | Merged With [facility] | | | and [...] [place], [place] | | | | | [address] | | + + + + + | Dalton Fernandez | ECON | Unknown | | + + + + + | Juana Fernandez | ECON | Unknown | | + + + + + Care Team Providers + +------+ + | Care School Leader Name | Role | Phone | + [...] | | | | | | | ID ARTHDSIS | | | | | | [...] + + | 06/17/ | Surgery | [facility] | Douglas Nuñez MD | L4-5, L5-S1 TLIF, | | 2014 | | MED CTR OR INTRA OP | [address] | LEFT SIDED APPROACH | | | | [address] | [place] [address] | | | | | [place] | [phone] | | | | | [address] | | | | | | [phone] | | | +--------+---------+ + + + [...] might be different from t dontae original. [facility] NEUROSURGERY DISCHARGE SUMMARY Patient Name: Mike [...] MIREYA Salas - 06/18/2014 2:25 PM PST Merged With [facility] PROGRESS NOTE Pt. Name/Age/: Mike Fernandez 63 y.o. 1950 Med. Record Number: [id number] Date of admission: 06/17/2014 Subjective: The patient [...] Electronically signed by: Nino Hurst, [facility]/18/2014 [facility] documented in th is encounter Plan of Treatment +--------+---------+ + + + | Date | Type | Specialty | Care Team | Description | +--------+---------+ + + + | 07/22/ | Office | Orthopedic Surgery | Ramin Bess | | | 2018 | Visit | | MD Swathi Gonzalez | | | | | | [place] | | | | | | [phone] | | | | | | | [...] vertebrae are visible. | | Interbody andposterior ojesph and pedicle screw fusion hardware now extends [...] + | MISCELLANEOUS LAB | | | [phone] | + +---------+ + + | MISCELANIOUS LAB | | | [phone] | + +---------+ + + documented in [...] mLs | | Surgical | | 1:200,000 0.5-1:141634 % | | 14 2:54 | | | Site | | injection PRN, Starting Wed | | PM PST | | | | | 06/17/14 at 1454, Intra-op | | | | | | + +-------+ +--------+---+ + +---+---+ | | | +---+---+ documented in this encounter
--- OUTSIDE RECORDS SUMMARY | ~2019-07-02 | XMS | Encounter Summary ---
Demographics + + + | Address | [address] | | | [place] [address] | + + + | Home Phone [...] | [facility] | | | and Primo | + + + | Organization | [facility] | | | and [...] [place], [place] | | | | | [address] | | + + + + + | Dalton Koroma | ECON | Unknown | | + + + + + | Juana Koroma | ECON | Unknown | | + + + + + Care Team Providers + +------+ + | Care Project Engineer Name | Role | Phone | + +------+ + | Dutch Valencia DO | PCP | | + +------+ + Encounter Details +--------+---------+ + + + | Date | Type | Department | Care Team | Description | +--------+---------+ + + + | 06/03/ | Office | [facility] | Ramin Huggins | S/P orthopedic | | 2015 | Visit | ORTHOPEDIC SURGERY | MD Lisa [address] [place] [address] | surgery, follow-up | | | | [address] [facility] | [place] | exam (Primary Dx) | | | | [place] | [address] | | | | | [address] | | | | | | [phone] | | | +--------+---------+ + + + [...] - 06/04/2015 6:46 AM PDTKyle shepherd note [id number].Electronically sign ed by Ramin Huggins MD at 06/04/2015 6:46 AM Ramin Ureña MD - 6:45 AM PDT PM[facility] ORTHOPEDIC SURGERY [address] [place] [address] [id number] OFFICE NOTE RAMIN HUGGINS MD Patient: ANA KOROMA Admitting: MR #: [id number] LOC: PT TYPE: Adm Date: 06/03/2015 : [...] with us prior to her return to [place] for application of Kinesio taping to help [...] 06/04/2015 06:45:21 Transcribed on 06/05/2015 05:40:05 by [facility] job# [id number] Confirmation #: [id number] cc: DUTCH VALENCIA DO documented in this encounter Plan of Treatment +--------+---------+ + + + | Date | Type | Specialty | Care Team | Description | +--------+---------+ + + + | 07/22/ | Office | Orthopedic Surgery | Ramin Huggins | | | 2019 | Visit | | MD Lisa [address] [place] [address] | | | | | | [place] | | | | | | [id number] | | | | | | | | +--------+---------+ + + + documented as of this encounter Visit Diagnoses + + | Diagnosis | + + | S/P orthopedic surgery, follow-up exam - Primary Follow-up examination, following | | other surgery | + + documented in this encounter"
--- OUTSIDE RECORDS SUMMARY | ~2019-07-02 | XMS | Encounter Summary ---
Demographics + + + | Address | [address] | | | [place] [address] | + + + | Home Phone [...] | Loc[facility] | | | and Primo | + + + | Organization | Loc[facility] | | [...] [place], [place] | | | | | [address] | | + + + + + | Dalton Fernandez | ECON | Unknown | | + + + + + | Juana Fernandez | ECON | Unknown | | + + + + + Care Team Providers + +------+ + | Care Gear Changer Name | Role | Phone | [...] Primary | Ramin Gonzalez, | [address] | | | | | localized | MD [address] | [place], | | | | | osteoarthros | [address] | [place] | | | | | is, lower | [place], | [address] | | | | | leg, right | [place] [address] | Phone: | | | | | Fitting and | Phone: | [phone] | | | | | adjustment | [phone] | Fax: | | | | | of | Fax: | [phone] | | | | | unspecified | [phone] | | | | | | prosthetic [...] Primary | Ramin L, | [address] | | | | | localized | MD [address] | [place], | | | | | osteoarthros | [address] | [place] | | | | | is, lower | [place], | [address] | | | | | leg, right | [place] [address] | Phone: | | | | | Fitting and | Phone: | [phone] | | | | | adjustment | [phone] | Fax: | | | | | of | Fax: | [phone] | | | | | unspecified | [phone] | | | | | | prosthetic [...] + + | 04/07/ | Hospital | [facility] | Ramin Bess | Primary localized | | 2015 | Encounter | MED CTR MRI [address] | MD Lisa [address] [facility] | osteoarthrosis, | | | | [address] [place], | [place], [place] | lower leg, right; | | | | [place] [address] | [address] | Fitting and | | | | [phone] | | adjustment of | | | [...] 2018 | Visit | | MD Lisa [address] [place] [address] | | | | | | [place] | | | | | | [address] | | | | | | | [...] KNEE PAIN PROSTHESIS FITTING IMPRESSION - | [facility] | | Limited MR images of the right knee are performed per prosthesis [facility] | | fitting protocol. No diagnostic [...] ST. | [address] | [place] | [phone] | | [facility] | | [address] | | | - IMAGING | | | | + + + + + documented in this encounter Visit Diagnoses + + | Diagnosis | + + | Primary localized osteoarthrosis, lower leg, right | + + | Fitting and adjustment of unspecified prosthetic device | + + documented in this encounter"
--- OUTSIDE RECORDS SUMMARY | ~2019-07-02 | XMS | Encounter Summary ---
Demographics + + + | Address | [address] | | | [place] [address] | + + + | Home Phone | | + + + | Preferred Language | Unknown | + + + | Marital Status | | + + + | Episcopalian Affiliation | 1076 | + + + | Race | Unknown | + + + | Ethnic Group | Unknown | + + + Author + + + | Author | [facility] | | | and Primo | + + + | Organization | [facility] | | [...] [place], [place] | | | | | [address] | | + + + + + | Dalton Fernandez | ECON | Unknown | | + + + + + | Juana Fernandez | ECON | Unknown | | + + + + + Care Team Providers + +------+ + | Care Viscosity Tester Name | Role | Phone | [...] | ORTHOPEDIC SURGERY | MD Swathi Gonzalez [facility] | subtrochanteric | | | | [address] [facility] | [place] | femur fracture, | | | | [place] | [address] | initial encounter | | | | [address] | | ([facility]) (Primary Dx) | | | | [phone] | | | +--------+ + + + [...] [place] | | | | | | [address] | | | | | | | [...] [address] | [place] | [phone] | | [facility] | | [address] | | | - IMAGING | | | | + + + + + documented in this encounter Visit Diagnoses + + | Diagnosis | + + | Closed left subtrochanteric femur fracture, initial encounter (HCC) - Primary | + + documented in this encounter"
--- OUTSIDE RECORDS SUMMARY | ~2019-07-02 | XMS | Encounter Summary ---
Demographics + + + | Address | [address] | | | [place] [address] | + + + | Home Phone [...] Author | [facility] | | | and Primo | + + + | Organization | [facility] [...] [place], [place] | | | | | [address] | | + + + + + | Dalton Fernandez | ECON | Unknown | | + + + + + | Juana Fernandez | ECON | Unknown | | + + + + + Care Team Providers + +------+ + | Care Wash Worker Name | Role | Phone | [...] | | | | | [address] | [place], [place] | | | | | [place], [place] | [address] | | | | | [address] | | | | | | [phone] | | | +--------+ + + + [...] +----+---+ + + | | 1 | [place] | | | | 4 | 43-degrees | | | | 3 | | | | | 6 | | | +----+---+ + + | | 1 | [place] off | | | | 7 | [...] video scope | | | | | (Diamondhead 3); Laryngoscope Blade | | | | [...]
--- OUTSIDE RECORDS SUMMARY | ~2019-07-02 | XMS | Encounter Summary ---
Demographics + + + | Address | [address] | | | [place] [address] | + + + | Home Phone [...] | Author | [facility] | | | and Primo | + + + | Organization | [facility] [...] [place], [place] | | | | | [address] | | + + + + + | Dalton Fernandez | ECON | Unknown | | + + + + + | Juana Fernandez | ECON | Unknown | | + + + + + Care Team Providers + +------+ + | Care Carpet Cleaner Name | Role | Phone | [...] + + | 10/31/ | Telephone | [facility] | Ramin Bess | Paperwork (Disabled | | 2017 | | ORTHOPEDIC SURGERY | MD Lisa [address] [place] [address] | parking) | | | | [address] [place] [address] | [place] | | | | | [place] | [address] | | | | | [address] | | | | | | [phone] | | | +--------+ + + + [...]
--- OUTSIDE RECORDS SUMMARY | ~2019-07-02 | XMS | Encounter Summary ---
Demographics + + + | Address | [address] | | | [place] [address] | + + + | Home Phone | | + + + | Preferred Language | Unknown | + + + | Marital Status | | + + + | Episcopalian Affiliation | Unknown | + + + | Race | Unknown | + + + | Ethnic Group | Other Race | + + + Author + + + | Author | [facility] | + + + | Organization | [facility] | + + + | Address | Unknown | + + + | Phone | Unavailable | + + + Support + + +---------+ + | Name | Relationship | Address | Phone | + + +---------+ + | Pt None Per | ECON | Unknown | Unavailable | + + +---------+ + Care Team Providers + +------+ + | Care Store Worker Name | Role | Phone | [...] Pharmacy | | | | | | [address] | | | | | | [place], | | | | | | [place] [address] | | | | | | [phone] | | | +--------+ + + + [...]
--- OUTSIDE RECORDS SUMMARY | ~2019-07-02 | XMS | Encounter Summary ---
Demographics + + + | Address | [address] | | | [place] [address] | + + + | Home Phone [...] | Author | [facility] | | | and Primo | + + + | Organization | [facility] | | [...] [place], [place] | | | | | [address] | | + + + + + | Dalton Fernandez | ECON | Unknown | | + + + + + | Juana Fernandez | ECON | Unknown | | + + + + + Care Team Providers + +------+ + | Care Internet Systems Administrator Name | Role | Phone | [...] SURGERY | MD Lisa [address] [facility] | | | | | [address] [facility] | [place] | | | | | [place] | [address] | | | | | [address] | | | | | | [phone] | | | +--------+--------+ + + + [...] [place] | | | | | | [id number] | | | | | | | | +--------+---------+ + + + documented as of this encounter Visit Diagnoses Not on filedocumented in this encounter"
--- OUTSIDE RECORDS SUMMARY | ~2019-07-02 | XMS | Encounter Summary ---
Demographics + + + | Address | [address] | | | [place] [address] | + + + | Home Phone [...] | Author | [facility] | | | and Primo | + + + | Organization | [facility] | | | and [...] [place], [place] | | | | | [address] | | + + + + + | Dalton Koroma | ECON | Unknown | | + + + + + | Juana Koroma | ECON | Unknown | | + + + + + Care Team Providers + +------+ + | Care Retail Commission Sales Associate Name | Role | Phone | [...] Required | | pain | [facility] | [address] | | | | | | [place], | [place] | | | | | | [place] [address] | [place] | | | | | | Phone: | [address] Phone: | | | | | | [phone] | [phone] | | | | | | Fax: | Fax: | | | | | | [phone] | [phone] | +--------+ + + + + + Encounter Details +--------+---------+ + + + | Date | Type | Department | Care Team | Description | +--------+---------+ + + + | 05// | Office | [facility] | Ramin Huggins | Primary | | 2015 | Visit | ORTHOPEDIC SURGERY | MD Lisa [address] [facility] | osteoarthritis of | | | | [address] [facility] | [place] | both knees (Primary | | | | [place] | [address] | Dx) | | | | [address] | | | | | | [phone] | | | +--------+---------+ + + + [...] - 12/08/2014 4:49 PM PDTSee soap note [id number].Electronically sign ed by Ramin Huggins MD at 12/08/2014 4:49 PM PDTRamin Huggins MD - 4:48 PM PDT [facility] ORTHOPEDIC SURGERY [address] [place] [address] OFFICE NOTE RAMIN HUGGINS MD Patient: ANA KOROMA Admitting: MR #: [id number] LOC: PT TYPE: Adm Date: 12/08/2014 : 1950 IDENTIFICATION: Kristin Koroma is a 64-year-old female who sees Dr. Valencia, in [facility] or primary care. CHIEF COMPLAINT: Bilateral [...] Transcribed on 12/08/2014 20:32:46 by [facility]za job# [id number] Confirmation #: [id number] cc: DUTCH VALENCIA DO documented in this encounter Plan of Treatment +--------+---------+ + + + | Date | Type | Specialty | Care Team | Description | +--------+---------+ + + + | 07/22/ | Office | Orthopedic Surgery | Ramin Huggins | | | 2019 | Visit | | MD Lisa [address] [place] [address] | | | | | | [place] | | | | | | [id number] | | | | | | | | +--------+---------+ + + + documented as of this encounter Procedures + +--------+ + + + | Procedure Name | Priori | Date/Time | Associated Diagnosis | Comments | | | ty | | | | + +--------+ + + + | [place] [facility] | Routin | 12/08/2014 | S/P lumbar [...]
--- OUTSIDE RECORDS SUMMARY | ~2019-07-02 | XMS | Encounter Summary ---
Demographics + + + | Address | [address] | | | [place] [address] | + + + | Home Phone [...] | Author | [facility] | | | and Primo | + + + | Organization | [facility] | [...] [place], [place] | | | | | [address] | | + + + + + | Dalton Fernandez | ECON | Unknown | | + + + + + | Juana Fernandez | ECON | Unknown | | + + + + + Care Team Providers + +------+ + | Care Electrical Engineering Manager Name | Role | Phone | + +------+ + | Dutch Rodriguez DO | PCP | | + +------+ + Encounter Details +--------+ + + + + | Date | Type | Department | Care Team | Description | +--------+ + + + + | 06/10/ | Preadmit | [facility] | Douglas Nuñez MD | Gastric reflux; | | 2013 | Visit | MED CTR PREADMIT | [address] | Migraine; | | | | CLINIC [address] | [place] [address] | Preoperative | | | | [place] | [phone] | clearance | | | | [address] | | | | | | [phone] | | | +--------+ + + + [...] [place] | | | | | | [address] | | | | | | | [...] + | MISCELLANEOUS LAB | | | [phone] | + +---------+ + + | MISCELANIOUS LAB | | | [phone] | + +---------+ + + CBC with [...] + | [facility] | [address] | [place] | [phone] | | [facility] | | [address] | | | - LABORATORY | | | | + + + + + | [facility] | [address] | [place] | | | [facility] | | [address] | | | - LABORATORY | | [...] 15 | 7 - 18 mg/dL | [facility] | | | | | | [facility] | | | | | | MEDICAL | | | | | | CENTER - | | | | | | LABORATORY | | + + + + + + | Creatinine | 0.70 | 0.60 - 1.30 | [facility] | | | | | mg/dL | [...] [facility] | | | [place] | RATE,ESTIMATED | | MEDICAL | | | | mL/min/1.17j3Unpn than | | CENTER - | | [...] ST. | [address] | [place] | [phone] | | [facility] | | [address] | | | - LABORATORY | | | | + + + + + | [facility] | [address] | [place], [place] | | | [facility] | | [address] | | | - LABORATORY | | [...]
--- OUTSIDE RECORDS SUMMARY | ~2019-07-02 | XMS | Encounter Summary ---
Demographics + + + | Address | [address] | | | [place] [address] | + + + | Home Phone | | + + + | Preferred Language | Unknown | + + + | Marital Status | | + + + | Church Affiliation | 1076 | + + + | Race | Unknown | + + + | Ethnic Group | Unknown | + + + Author + + + | Author | [facility] | | | and Primo | + + + | Organization | [facility] | | [...] [place], [place] | | | | | [address] | | + + + + + | Dalton Fernandez | ECON | Unknown | | + + + + + | Juana Fernandez | ECON | Unknown | | + + + + + Care Team Providers + +------+ + | Care Nail Maker Name | Role | Phone | [...] | | ORTHOPEDIC SURGERY | MD Lisa [address] [place] [address] | (Primary Dx) | | | | [address] [facility] | [place] | | | | | [place] | [address] | | | | | [address] | | | | | | [phone] | | | +--------+ + + + [...] [place] | | | | | | [address] | | | | | | | [...] + + | Performing | Address | City[facility]State[facility] | Phone Number | | Organization | | | | + + + + + | [facility] | [address] | [place] | [phone] | | [facility] | | [address] | | | - IMAGING | | [...] The right knee shows no acute | [facility] | | findings. There is moderate medial [...] ST. | [address] | [place] | [phone] | | [facility] | | [address] | | | - IMAGING | | | | + + + + + documented in this encounter Visit Diagnoses + + | Diagnosis | + + | Bilateral knee pain - Primary Pain in joint, lower leg | + + documented in this encounter"
--- OUTSIDE RECORDS SUMMARY | ~2019-07-02 | XMS | Encounter Summary ---
Demographics + + + | Address | [address] | | | [place] [address] | + + + | Home Phone [...] Author | [facility] | | | and Primo | + + + | Organization | [facility] | | | and [...] [place], [place] | | | | | [address] | | + + + + + | Dalton Koroma | ECON | Unknown | | + + + + + | Juana Koroma | ECON | Unknown | | + + + + + Care Team Providers + +------+ + | Care Climatologist Name | Role | Phone | + [...] + + | 06/29/ | Office | [facility] | Ramin Huggins | S/P orthopedic | | 2015 | Visit | ORTHOPEDIC SURGERY | MD Lisa [address] [facility] | surgery, follow-up | | | | [address] [facility] | [place] | exam (Primary Dx) | | | | [place] | [address] | | | | | [address] | | | | | | [phone] | | | +--------+---------+ + + + [...] - 06/29/2015 10:41 AM PSTSee soap note [id number].Electronically sign ed by Ramin Huggins MD at 06/29/2015 10:42 AM Ramin Palomino MD - 10:41 AM PST [facility] ORTHOP[facility]IC SURGERY [address] [place] [address] OFFICE NOTE RAMIN HUGGINS MD Patient: MYRIAM KOROMA Admitting: MR #: [id number] LOC: PT TYPE: Adm Date: 06/29/2015 : [...] nothing for household ambulation. [facility] EXAMINATION: [...] her a single non-fillable prescri ption for [place] 10/325 to use as needed as a rescue pain medication. We will plan see her back for a clinical check in 1 month. RAMIN HUGGINS MD Dictated by RAMIN HUGGINS MD 06/29/2015 10:41:30 Transcribed on 06/30/2015 06:06:04 by rajinder job# [id number] Confirmation #: [id number] cc: DUTCH VALENCIA DO documented in this encounter Plan of Treatment +--------+---------+ + + + | Date | Type | Specialty | Care Team | Description | +--------+---------+ + + + | 07/22/ | Office | Orthopedic Surgery | Ramin Huggins | | | 2019 | Visit | | MD Lisa [facility] [address] | | | | | | [place] | | | | | | [id number] | | | | | | | | +--------+---------+ + + + documented as of this encounter Visit Diagnoses + + | Diagnosis | + + | S/P orthopedic surgery, follow-up exam - Primary Follow-up examination, following | | other surgery | + + documented in this encounter
--- OUTSIDE RECORDS SUMMARY | ~2019-07-02 | XMS | Encounter Summary ---
Demographics + + + | Address | [address] | | | [place] [address] | + + + | Home Phone [...] Author | [facility] | | | and Primo | + + + | Organization | [facility] [...] [place], [place] | | | | | [address] | | + + + + + | Dalton Fernandez | ECON | Unknown | | + + + + + | Juana Fernandez | ECON | Unknown | | + + + + + Care Team Providers + +------+ + | Care Director General Name | Role | Phone | + [...] | | ORTHOPEDIC SURGERY | MD Lisa [address] [place] [address] | surgery, follow-up | | | | [address] [place] [address] | [place] | exam (Primary Dx) | | | | [place] | [id number] | | | | | [address] | | | | | | [phone] | | | +--------+ + + + [...] [place] | | | | | | [address] | | | | | | | | +--------+---------+ + + + documented as of this encounter Visit Diagnoses + + | Diagnosis | + + | S/P orthopedic surgery, follow-up exam - Primary Follow-up examination, following | | other surgery | + + documented in this encounter"
--- OUTSIDE RECORDS SUMMARY | ~2019-07-02 | XMS | Encounter Summary ---
Demographics + + + | Address | [address] | | | [place] [address] | + + + | Home Phone [...] | Author | [facility] | | | and Primo | + + + | Organization | [facility] | [...] [place], [place] | | | | | [address] | | + + + + + | Dalton Fernandez | ECON | Unknown | | + + + + + | Juana Fernandez | ECON | Unknown | | + + + + + Care Team Providers + +------+ + | Care Retail Management Keyholder Name | Role | Phone | + +------+ + | Dutch Rodriguez DO | PCP | | + +------+ + Encounter Details +--------+ + + + + | Date | Type | Department | Care Team | Description | +--------+ + + + + | 11/01/ | [facility] | [facility] | Michelle Whitfield, PT | | | 2016 | Encounter | MED CTR ACUTE | | | | | | PHYSICAL THERAPY | | | | | | [address] | | | | | | [place] [address] | | | | | | [phone] | | | +--------+ + + + [...] [place] | | | | | | [address] | | | | | | | | +--------+---------+ + + + documented as of this encounter Visit Diagnoses Not on filedocumented in this encounter"
--- OUTSIDE RECORDS SUMMARY | ~2019-07-02 | XMS | Encounter Summary ---
Demographics + + + | Address | [address] | | | [place] [address] | + + + | Home Phone | | + + + | Preferred Language | Unknown | + + + | Marital Status | | + + + | Spiritism Affiliation | [id number] | + + + | Race | Unknown | + + + | Ethnic Group | Unknown | + + + Author + + + | Author | [facility] | | | and Primo | + + + | Organization | [facility] | | | [...] [place], [place] | | | | | [address] | | + + + + + | Dalton Fernandez | ECON | Unknown | | + + + + + | Juana Fernandez | ECON | Unknown | | + + + + + Care Team Providers + +------+ + | Care Prepper Name | Role | Phone | + [...] | | [address] | [place] [address] | Migraine; | | | | [place] | [phone] | Preoperative | | | | [address] | | clearance | | | | [phone] | | | +--------+ + + + [...] 2019 | Visit | | MD Lisa [address] [place] [address] | | | | | | [place] | | | | | | [address] | | | | | | | [...] Segun Miranda MD - 06/11/2014 7:28 AM [facility] Adult ECG Report | | | | Name: Mike Fernandez | | Age: 63 y.o. | | Gender: female | | | | 06/10/14 at 10:21 | | Narrative Interpretation: Sinus rhythm. First degree AV block. Normal axis. | + + XR Chest PA and Lateral (06/10/2014 9:49 AM [facility]) + + | Specimen | [...] + | MISCELLANEOUS LAB | | | [phone] | + +---------+ + + | MISCELANIOUS LAB | | | [phone] | + +---------+ + + CBC with [...] + + | Performing | Address | City[facility] | Phone Number | | Organization | | | | + + + + + | [facility] | [address] | [place], [place] | [phone] | | [facility] | | [address] | | | - LABORATORY | | | | + + + + + | [facility] | [address] | [place], [place] | | | [facility] | | [address] | | | - LABORATORY | | [...] | 0.70 | 0.60 - 1.30 | [facility] | | | | | mg/dL [...] mL/min/1.73m2 | [facility] | | | NEPALESE | RATE,ESTIMATED | | MEDICAL | | | | mL/min/1.91i3Vhnk than | | CENTER - | | [...] + | [facility] | [address] | [place] | [phone] | | [facility] | | [address] | | | - LABORATORY | | | | + + + + + | [facility] | [address] | [place], [place] | | | [facility] | | [address] | | | - LABORATORY | | [...]
--- OUTSIDE RECORDS SUMMARY | ~2019-07-02 | XMS | Encounter Summary ---
Demographics + + + | Address | [address] | | | [place] [address] | + + + | Home Phone [...] | [facility] | | | and Primo | + + + | Organization | [facility] | | | and [...] [place], [place] | | | | | [address] | | + + + + + | Dalton Fernandez | ECON | Unknown | | + + + + + | Juana Fernandez | ECON | Unknown | | + + + + + Care Team Providers + +------+ + | Care Warehousing Technician Name | Role | Phone | [...] | | | | | femur, | [place], [place] | [place], [place] | | | | | unspecified | [address] | [id number] | | | | | fracture | Phone: | Phone: | | | | | morphology, | [phone] | [phone] | | | | | sequela | Fax: | Fax: | | | | | | [phone] | [phone] | +--------+ + + + + + [...] + + | 10/25/ | Hospital | [facility] | Raheel Vazquez, | Back pain, | | 2017 - | Encounter | [facility] [address] | MD Luci [address] | unspecified back | | | | [place], | [address] [address] | location, | | 11/01/ | | [place] [address] | [address] | unspecified back | | 2017 | | [phone] | | pain laterality, | | | [...] for comparison only - no result from [place]. XR Ankle Left 2 Vw Narrative External films for comparison only - no result from [place]. [place] C-Arm Stats No Charge Narrative No [...] who was admitted after a fall from [employer] resulting in left distal femur fracture now [...] fracture so she was then transferred to [facility] for definitive treatment. She was then [...] are retired, though volunteers daily. There is [facility] community support if needed when he is [...] Knee Arthroplasty; Surgeon: Ramin Bess MD; Location: [facility] MAIN OR Total knee arthroplasty Left 02/09/2016 Procedure: Left Total Knee Arthroplasty; Surgeon: Ramin Bess MD; Location: [facility] MAIN OR Femur fracture surgery Left 10/23/2016 [...] who was admitted after a fall from [employer] resulting in left distal femur fracture [...] this chart may have been created with Tripbirds voice recognition software. Occasi onal wrong-word or sound-alike substitutions may have occurred due to the inherent ramirez itations of voice recognition software. Please read the chart carefully and recognize, using context, where these substitutions have occurred Ken Ureña MD - 10/28/2016 1:18 PM PDTD/C summary dictation # [id number]. documented in this encounter Medications at Time [...] Vazquez MD - 10/31/2016 10:24 AM PDT Lqoz-cn-Yphv Rehabilitation Medicine Daily Progress Note Date: 10/31/16 ID/CC: Ms. Fernandez is a 65 year old woman with history of lumbar spondylolisthesis s/p L4-S1 fusion (06/17/14), left TKR (02/09/16) ,right TKR (05/26/15) who was admitted after a fall from [employer] resulting in left distal femur fracture now s/p ORIF on 10/23/16 Interval history: Did well overnight. Able to ascend/descend ramp in basement of hospital. Home ramp should be delivered tomorrow. Already have a rental [facility]. Review of Systems - Constitutional - denies [...] Raheel Vazquez MD, 300 mg at 10/31/16 5320 HYDROmorphone (DILAUDID) injection 0.2-0.4 mg, 0.2-0.4 mg, [...] who was admitted after a fall from [employer] resulting in left distal femur fracture [...] this chart may have been created with Tripbirds voice recognition software. Occasi onal wrong-word or [...] Dr. Dutch Rodriguez, at [facility] in [place], [place]. Raheel Hart MD - 10/30/2016 8:42 AM PDTFormatting of this note might be diff erent from the original. Yxgp-ax-Wdgo Rehabilitation Medicine Daily Progress Note Date: 10/30/2016 ID/CC: Ms. Fernandez is a 65 year old woman with history of lumbar spondylolisthesis s/p L4-S1 fusion (06/17/14), left TKR (02/09/16) ,right TKR (05/26/15) who was admitted after a fall from [employer] resulting in left distal femur fracture [...] mL, 30 mL, Oral, Daily PRN, Raheel aVzquez MD loratadine (CLARITIN) tablet 10 mg, 10 [...] who was admitted after a fall from [employer] resulting in left distal femur fracture [...] this chart may have been created with Tripbirds voice recognition software. Occasi onal wrong-word or [...] Hart MD - 10/27/2016 3:59 PM PDT Yjsz-rc-Bgbu Rehabilitation Medicine Daily Progress Note Date: 10/27/2016 ID/CC: Ms. Fernandez is a 65 year old woman with history of lumbar spondylolisthesis s/p L4-S1 fusion (06/17/14), left TKR (02/09/16) ,right TKR (05/26/15) who was admitted after a fall from [employer] resulting in left distal femur fracture [...] who was admitted after a fall from [employer] resulting in left distal femur fracture [...] this chart may have been created with Tripbirds voice recognition software. Occasi onal wrong-word or [...] | Visit | | MD Lisa [facility] [place] | | | | | [...] | | | FILTRATION | mL/min/1.73m2 | [facility] | | | [place] | RATE,ESTIMATED | | MEDICAL | | | | mL/min/1.17a7Kmel than | | CENTER - | | [...] | | | | | mg/dL | [facility] | | | | | | MEDICAL | | | | | | CENTER - | | | | | | LABORATORY | | + + + + + + | Albumin | 3.2 | 3.2 - 5.0 g/dL | [facility] | | | | | | [facility] | | | | [...] [address] | [place] | [phone] | | [facility] | | [address] | | | - LABORATORY | | [...] [address] | [place] | [phone] | | [facility] | | [address] | | | - LABORATORY | | [...] [address] | [place] | [phone] | | [facility] | | [address] | | | - LABORATORY | | [...] | | | | | | [facility] | | | | | | MEDICAL | | | | | | CENTER - | | | | | | LABORATORY | | + + + + + + | BUN | 9 | 7 - 18 mg/dL | [facility] | | | | | | [facility] | | | | | | MEDICAL | | | | | | CENTER - | | | | | | LABORATORY | | + + + + + + | Creatinine | 0.69 | 0.60 - 1.30 | [facility] | | | | | mg/dL | [facility] | | | | | | MEDICAL | | | | | | CENTER - | | | | | | LABORATORY | | + + + + + + | eGFR if not | >60Comment: GLOMERULAR | >=60 | [facility] | | | | FILTRATION | mL/min/1.73m2 | [facility] | | | EG[place]IAN | RATE,ESTIMATED | | MEDICAL | | | | mL/min/1.21w6Pmwm than | | CENTER - | | [...] [address] | [place] | [phone] | | [facility] | | [address] | | | - LABORATORY | | [...] ST. | [address] | [place] | [phone] | | [facility] | | [address] | | | - LABORATORY | | [...] | | | | | modification) on [facility] 10/26/16 at | | | | [...] | | | | First dose on [facility] 10/26/16 at 2100 | | PM [...] | | | DAILY, First dose on [facility] 10/26/16 | | AM PDT | [...] | | | (after last modification) on [facility] | | | | | | [...] | | | | last modification) on [facility] | | | | | | [...]
--- OUTSIDE RECORDS SUMMARY | ~2019-07-02 | XMS | Encounter Summary ---
Demographics + + + | Address | [address] | | | [place] [address] | + + + | Home Phone [...] Author | [facility] | | | and Primo | + + + | Organization | [facility] | | [...] [place], [place] | | | | | [address] | | + + + + + | Dalton Fernandez | ECON | Unknown | | + + + + + | Juana Fernandez | ECON | Unknown | | + + + + + Care Team Providers + +------+ + | Care Fur Puller Name | Role | Phone | + +------+ + | Dutch Rodriguez DO | PCP | | + +------+ + Encounter Details +--------+ + + + + | Date | Type | Department | Care Team | Description | +--------+ + + + + | 01/24/ | Orders Only | [facility] Ramin Bess | Closed left | | 2016 | | ORTHOPEDIC SURGERY | MD Lisa [address] [place] [address] | subtrochanteric | | | | [address] [place] [address] | [place] | femur fracture, | | | | [place] | [address] | initial encounter | | | | [address] | | ([facility]) (Primary Dx); | | | | [phone] | | Left knee pain, | | [...] 2018 | Visit | | MD Lisa [address] [place] [address] | | | | | | [place] | | | | | | [address] | | | | | | | [...] [address] | [place] | [phone] | | [facility] | | [address] | | | - IMAGING | | | | + + + + + documented in this encounter Visit Diagnoses + + | Diagnosis | + + | Closed left subtrochanteric femur fracture, initial encounter (HCC) - Primary | + + | Left knee pain, unspecified chronicity | + + documented in this encounter"
--- OUTSIDE RECORDS SUMMARY | ~2019-07-02 | XMS | Encounter Summary ---
Demographics + + + | Address | [address] | | | [place] [address] | + + + | Home Phone [...] Author | [facility] | | | and Primo | + + + | Organization | [facility] | | | [...] [place], [place] | | | | | [address] | | + + + + + | Dalton Fernandez | ECON | Unknown | | + + + + + | Juana Fernandez | ECON | Unknown | | + + + + + Care Team Providers + +------+ + | Care Molder Foam Rubber Name | Role | Phone | + [...] + + | 05/04/ | Office | [facility] | Ramin Bess | Pre-op testing | | 2015 | Visit | ORTHOPEDIC SURGERY | MD Lisa [address] | (Primary Dx); | | | | [address] [place] | [place] | Primary | | | | [place] | [address] | osteoarthritis of | | | | [address] | | both knees | | | | [phone] | | | +--------+---------+ + + + [...] [place] | | | | | | [address] | | | | | | | [...] + + + + | Color | [place] ([place]) | Light Yellow, | [facility] | [...] - 1.030 | [facility] | | | [place] | | | [facility] | | [...] + | [facility] | [address] | [place] | [phone] | | [facility] | | [address] | | | - LABORATORY | | [...] | mL/min/1.73m2 | [facility] | | | EQUATORIAL GUINEAN | RATE,ESTIMATED | | MEDICAL | | | | mL/min/1.38x3Ssoc than | | CENTER - | | [...] [address] | [place] | [phone] | | [facility] | | [address] | | | - LABORATORY | | [...] [address] | [place] | [phone] | | [facility] | | [address] | | | - LABORATORY | | | | + + + + + documented in this encounter Visit Diagnoses + + | Diagnosis | + + | Pre-op testing - Primary Preoperative examination, unspecified | + + | Primary osteoarthritis of both knees Primary localized osteoarthrosis, lower leg | + + documented in this encounter
--- OUTSIDE RECORDS SUMMARY | ~2019-07-02 | XMS | Encounter Summary ---
Demographics + + + | Address | [address] | | | [place] [address] | + + + | Home Phone [...] Author | [facility] | | | and Primo | + + + | Organization | [facility] | | | and [place] [...] [place], [place] | | | | | [address] | | + + + + + | Dalton Fernandez | ECON | Unknown | | + + + + + | Juana Fernandez | ECON | Unknown | | + + + + + Care Team Providers + +------+ + | Care Tile Professional Name | Role | Phone | + [...] + + | 01/20/ | Telephone | [facility] | Nino Hurst | Paperwork | | 2014 | | NEUROSURGERY [address] | [address] [address] | | | | | [address] | [facility] | | | | | [place], [place] | [place], [place] | | | | | [address] | [address] | | | | | [phone] | | | +--------+ + + + [...] [place] | | | | | | [id number] | | | | | | | | +--------+---------+ + + + documented as of this encounter Visit Diagnoses Not on filedocumented in this encounter"
--- OUTSIDE RECORDS SUMMARY | ~2019-07-02 | XMS | Encounter Summary ---
Demographics + + + | Address | [address] | | | [place] [address] | + + + | Home Phone [...] | Author | [facility] | | | and Primo | + + + | Organization | [facility] | [...] [place], [place] | | | | | [address] | | + + + + + | Dalton Fernandez | ECON | Unknown | | + + + + + | Juana Fernandez | ECON | Unknown | | + + + + + Care Team Providers + +------+ + | Care Heating And Refrigeration Inspector Name | Role | Phone | [...] + + | 10/16/ | Refill | [facility] | Zachery Soria | Medication Refill | | 2018 | | ORTHOPEDIC SURGERY | [address] | | | | | [address] [facility] | [facility] | | | | | [place] | [place] [address] | | | | | [address] | [phone] | | | | | [phone] | | | +--------+--------+ + + + [...] [place] | | | | | | [id number] | | | | | | | | +--------+---------+ + + + documented as of this encounter Visit Diagnoses Not on filedocumented in this encounter"
--- OUTSIDE RECORDS SUMMARY | ~2019-07-02 | XMS | Encounter Summary ---
Demographics + + + | Address | [address] | | | [place] [address] | + + + | Home Phone [...] | Author | [facility] | | | and Primo | + + + | Organization | [facility] | | | [...] [place], [place] | | | | | [address] | | + + + + + | Dalton eFrnandez | ECON | Unknown | | + + + + + | Juana Fernandez | ECON | Unknown | | + + + + + Care Team Providers + +------+ + | Care Fruit Harvester Machine Operator Name | Role | Phone [...] | | Required | | pain | [address] | [address] | | | | | | [place], | [facility] | | | | | | [place] [address] | [facility] | | | | | | Phone: | [phone] Phone: | | | | | | [phone] | [phone] | | | | | | Fax: | Fax: | | | | | | [phone] | [phone] | +--------+ + + + + + Reason for Visit + + + | Reason | Comments | + + + | Follow-up | Post op | + + + Encounter Details +--------+---------+ + + + | Date | Type | Department | Care Team | Description | +--------+---------+ + + + | 09/18/ | Office | [facility] | Douglas Nuñez MD | S/P lumbar fusion | | 2015 | Visit | NEUROSURGERY [address] | [address] | (Primary Dx) | | | | [address] | [place] [address] | | | | | [place] | [phone] | | | | | [address] | | | | | | [phone] | | | +--------+---------+ + + + [...] from t dontae original. Douglas Nuñez MD [address] [place] [address], [facility] [address] [place], [place] [address] FAX: NEUROSURGERY FOLLOW-UP CHIEF COMPLAINT: Chief Complaint [...] Left; Surgeon: Douglas Nuñez MD; Loc ation: [facility] MAIN OR CURRENT MEDICATIONS: Current Outpatient [...] months for re-evaluation. ELECTRONICALLY SIGNED BY: Douglas uNñez MD, 09/18/2014 13:25 documented in this encjanell donalder Plan of Treatment +--------+---------+ + + + | Date | Type | Specialty | Care Team | Description | +--------+---------+ + + + | 07/22/ | Office | Orthopedic Surgery | Ramin Bess | | | 2019 | Visit | | MD Lisa [address] [place] [address] | | | | | | [place] | | | | | | [id number] | | | | | | | | +--------+---------+ + + + documented as of this encounter Procedures + +--------+ + + + | Procedure Name | Priori | Date/Time | Associated Diagnosis | Comments | | | ty | | | | + +--------+ + + + | AMB REFERRAL TO [facility] | Routin | 12/08/2014 | S/P lumbar [...] 2014. FINDINGS:Frontal and lateral views of the [facility] | | lumbar spine. Posterior and [...] Nointerval compression deformities. Stable severe compression deformity [id number] | | and more mild involving T11. [...] + + | Performing | Address | City/State/[facility] | Phone Number | | Organization | | | | + + + + + | [facility] | [address] | [place] | [phone] | | [facility] | | [address] | | | - IMAGING | | | | + + + + + documented in this encounter Visit Diagnoses + + | Diagnosis | + + | S/P lumbar fusion - Primary Arthrodesis status | + + documented in this encounter
--- OUTSIDE RECORDS SUMMARY | ~2019-07-02 | XMS | Encounter Summary ---
Demographics + + + | Address | [address] | | | [place] [address] | + + + | Home Phone [...] + | Author | [facility] | | | and Primo | + + + | Organization | [facility] | | [...] [place], [place] | | | | | [address] | | + + + + + | Dalton Fernandez | ECON | Unknown | | + + + + + | Juana Fernandez | ECON | Unknown | | + + + + + Care Team Providers + +------+ + | Care Professor Of Psychiatry Name | Role | Phone | + +------+ + | Dutch Rodriguez DO | PCP | | + +------+ + Encounter Details +--------+ + + + + | Date | Type | Department | Care Team | Description | +--------+ + + + + | 05/04/ | Hospital | [facility] | Ramin Bess | Pre-op testing | | 2015 | Encounter | [facility] LAB[facility]ATORY | MD Lisa [address] [facility] | | | | | [address] | [place] | | | | | [place] | [address] | | | | | [address] | | | | | | [phone] | | | +--------+ + + + [...] [place] | | | | | | [address] | | | | | | | [...] + + + + | Color | [place] ([place] | Light Yellow, | [facility] | [...] - 1.030 | [facility] | | | [place] | | | [facility] | | [...] + | [facility] | [address] | [place] | [phone] | | [facility] | | [address] | | | - LABORATORY | | [...] | mL/min/1.73m2 | [facility] | | | [place] | RATE,ESTIMATED | | MEDICAL | | | | mL/min/1.53h1Iiuj than | | CENTER - | | [...] | 9.3 | 8.3 - 10.5 | [facility] | | | | | mg/dL | [facility] | | | | | | MEDICAL | | | | | | CENTER - | | | | | | LABORATORY | | + + + + + + | Albumin | 3.8 | 3.2 - 5.0 g/dL | [facility] | | | | | | [facility] [...] [address] | [place] | [phone] | | [facility] | | [address] | | | - LABORATORY | | [...] [address] | [place] | [phone] | | [facility] | | [address] | | | - LABORATORY | | | | + + + + + documented in this encounter Visit Diagnoses + + | Diagnosis | + + | Pre-op testing Preoperative examination, unspecified | + + documented in this encounter"
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
--- OUTSIDE RECORDS SUMMARY | ~2019-07-02 | XMS | Encounter Summary ---
Demographics + + + | Address | [address] | | | [place] [address] | + + + | Home Phone | | + + + | Preferred Language | Unknown | + + + | Marital Status | | + + + | Yarsanism Affiliation | 1076 | + + + | Race | Unknown | + + + | Ethnic Group | Unknown | + + + Author + + + | Author | [facility] | | | and Primo | + + + | Organization | [facility] | | | and [place] | [...] [place], [place] | | | | | [address] | | + + + + + | Dalton Fernandez | ECON | Unknown | | + + + + + | Juana Fernandez | ECON | Unknown | | + + + + + Care Team Providers + +------+ + | Care Rotary Screen Printing Machine Operator Name | Role | Phone | + +------+ + | Dutch Rodriguez DO | PCP | | + +------+ + Encounter Details +--------+ + + + + | Date | Type | Department | Care Team | Description | +--------+ + + + + | 06/17/ | Hospital | [facility] | Zachery Soria | Sprain of collateral | | 2019 | Encounter | MED CTR [facility]IAN XRAY | [address] | ligament of left | | | | [address] [place] | [facility] | knee, initial | | | | [place], [place] | [place] [address] | encounter; Left knee | | | | [address] | [phone] | pain, unspecified | | | | [phone] | | chronicity | +--------+ + + [...] | | 0 | | | | [id number] | mouth Daily. | | | | [...] [place] | | | | | | [id number] | | | | | | | [...]
--- OUTSIDE RECORDS SUMMARY | ~2019-07-02 | XMS | Encounter Summary ---
Demographics + + + | Address | [address] | | | [place] [address] | + + + | Home Phone [...] Author | [facility] | | | and Primo | + + + | Organization | [facility] | | | and [place] [...] [place], [place] | | | | | [address] | | + + + + + | Dalton Fernandez | ECON | Unknown | | + + + + + | Juana Fernandez | ECON | Unknown | | + + + + + Care Team Providers + +------+ + | Care Envelope Sealing Machine Operator Name | Role | Phone | + +------+ + | Dutch Rodriguez DO | PCP | | + +------+ + Encounter Details +--------+ + + + + | Date | Type | Department | Care Team | Description | +--------+ + + + + | 06/10/ | Hospital | [facility] | Douglas Nuñez MD | | | 2013 | Encounter | MED CTR XRAY [address] | [address] | | | | | [place] | [place] [address] | | | | | [place] [address] | [phone] | | | | | [phone] | | | +--------+ + + + [...] [place] | | | | | | [address] | | | | | | | [...] + | MISCELLANEOUS LAB | | | [phone] | + +---------+ + + | MISCELANIOUS LAB | | | [phone] | + +---------+ + + documented in this encounter Visit Diagnoses Not on filedocumented in this encounter"
--- OUTSIDE RECORDS SUMMARY | ~2019-07-02 | XMS | Encounter Summary ---
Demographics + + + | Address | [address] | | | [place] [address] | + + + | Home Phone [...] | Author | [facility] | | | and Primo | + + + | Organization | [facility] | [...] [place], [place] | | | | | [address] | | + + + + + | Dalton Fernandez | ECON | Unknown | | + + + + + | Juana Fernandez | ECON | Unknown | | + + + + + Care Team Providers + +------+ + | Care Boring Machine Operator Production Name | Role | Phone | + [...] + + | 04/21/ | Refill | [facility] | Zachery Soria | Medication Refill | | 2018 | | ORTHOPEDIC SURGERY | [address] | | | | | [address] [facility] | [facility] | | | | | [place] | [place] [address] | | | | | [address] | [phone] | | | | | [phone] | | | +--------+--------+ + + + [...] [place] | | | | | | [address] | | | | | | | | +--------+---------+ + + + documented as of this encounter Visit Diagnoses Not on filedocumented in this encounter"
--- OUTSIDE RECORDS SUMMARY | ~2019-07-02 | XMS | Encounter Summary ---
Demographics + + + | Address | [address] | | | [place] [address] | + + + | Home Phone | | + + + | Preferred Language | Unknown | + + + | Marital Status | | + + + | Christianity Affiliation | 1076 | + + + | Race | Unknown | + + + | Ethnic Group | Unknown | + + + Author + + + | Author | [facility] | | | and Primo | + + + | Organization | [facility] | | [...] [place], [place] | | | | | [address] | | + + + + + | Dalton Fernandez | ECON | Unknown | | + + + + + | Juana Fernandez | ECON | Unknown | | + + + + + Care Team Providers + +------+ + | Care Clinical Phlebotomist Name | Role | Phone | + [...] | | | | | [address] | [place], [place] | | | | | [place], [place] | [address] | | | | | [address] | | | | | | [phone] | Randy Machado | | | | | | MD Carly [address] | | | | | | [address] [place] | | | | | | [place] [address] | | | | | | [phone] | | | | | | | [...] +----+---+ + + | | 1 | Lisman | | | | 5 | 43-degrees | | | | 0 | | | | | 4 | | | +----+---+ + + | | 1 | First | | | | 5 | Inc/Proc St | | | | 0 | | | | | 7 | | | +----+---+ + + | | 1 | Lisman off | | | | 6 | [...] Jeimy Ramirez RN | | IV | wmvw-icq-rylisg catheter system; | | | | | [...] 10/26/16 2319 by | | eral | oasw-lwj-bigqsj catheter system; | Gloria Dumont MD | [...] Visit | | MD Swathi Gonzalez [facility] | | | | | | [place] | | | | | | [address] | | | | | | | [...] Performing provider: | | | GLORIA DUMONT Manager Medical Writing: Inessa Lundberg Electronically | | | Signed [...] (PF) injection | Given | 10/24/19 | 0.473008 | | | | Intravenous, PRN, Pain, [...]
--- OUTSIDE RECORDS SUMMARY | ~2019-07-02 | XMS | Encounter Summary ---
Demographics + + + | Address | [address] | | | [place] [address] | + + + | Home Phone [...] | Author | [facility] | | | and Primo | + + + | Organization | [facility] | | [...] [place], [place] | | | | | [address] | | + + + + + | Dalton Koroma | ECON | Unknown | | + + + + + | Juana Koroma | ECON | Unknown | | + + + + + Care Team Providers + +------+ + | Care Front Office Help Name | Role | Phone | + [...] + + | 07/27/ | Office | [facility] | Ramin Huggins | S/P orthopedic | | 2015 | Visit | ORTHOPEDIC SURGERY | MD Swathi Gonzalez | surgery, follow-up | | | | [address] [place] | [place] | exam (Primary Dx) | | | | [place] | [address] | | | | | [address] | | | | | | [phone] | | | +--------+---------+ + + + [...] - 07/27/2015 12:51 PM PSTSee soap note [id number].Electronically sign ed by Ramin Huggins MD at 07/27/2015 12:51 PM PSTHendersRamin howell MD - 5 12:51 PM PST [facility] ORTHOPEDIC SURGERY [address] [place] [address] OFFICE NOTE RAMIN HUGGINS MD Patient: MYRIAM KOROMA Admitting: MR #: [id number] LOC: PT TYPE: Adm Date: 07/27/2015 : [...] Transcribed on 07/28/2015 05:25:[address] shahid# [id number] Confirmation #: [id number] cc: DUTCH VALENCIA DO documented in this [...] [place] | | | | | | [address] | | | | | | | | +--------+---------+ + + + documented as of this encounter Visit Diagnoses + + | Diagnosis | + + | S/P orthopedic surgery, follow-up exam - Primary Follow-up examination, following | | other surgery | + + documented in this encounter"
--- OUTSIDE RECORDS SUMMARY | ~2019-07-02 | XMS | Encounter Summary ---
Demographics + + + | Address | [address] | | | [place] [address] | + + + | Home Phone [...] [place], [place] | | | | | [address] | | + + + + + | Dalton Fernandez | ECON | Unknown | | + + + + + | Juana Fernandez | ECON | Unknown | | + + + + + Care Team Providers + +------+ + | Care Daytime Caregiver Name | Role | Phone | + [...] + + | 02/02/ | Office | [facility] | Ramin Bess | Pre-operative | | 2015 | Visit | ORTHOPEDIC SURGERY | MD Lisa [address] [place] [address] | laboratory | | | | [address] [place] [address] | [place] | examination (Primary | | | | [place] | [address] | Dx); Ambikauria; | | | | [address] | | Primary | | | | [phone] | | osteoarthritis of | | | [...] Knee Arthroplasty; Surgeon: Ramin Bess MD; Location: [facility] MAIN OR Allergies Allergen Reactions Onion Shortness [...] [place] | | | | | | [address] | | | | | | | [...] - 1.030 | [facility] | | | [place] | | | [facility] | | [address] | [place] | [phone] | | [facility] | | [address] | | | - LABORATORY | | [...] ST. | [address] | [place] | [phone] | | [facility] | | [address] | | | - LABORATORY | | [...]
--- OUTSIDE RECORDS SUMMARY | ~2019-07-02 | XMS | Encounter Summary ---
Demographics + + + | Address | [address] | | | [place] [address] | + + + | Home Phone [...] | Author | [facility] | | | and Primo | + + + | Organization | [facility] | | [...] [place], [place] | | | | | [address] | | + + + + + | Dalton Fernandez | ECON | Unknown | | + + + + + | Juana Fernandez | ECON | Unknown | | + + + + + Care Team Providers + +------+ + | Care Cigar Machine Feeder Name | Role | Phone | [...] + + | 01/01/ | Office | [facility] | Ramin Bess | S/P orthopedic | | 2018 | Visit | ORTHOPEDIC SURGERY | MD Swathi Gonzalez | surgery, follow-up | | | | [address] [place] | [place] | exam (Primary Dx) | | | | [place] | [address] | | | | | [address] | | | | | | [phone] | | | +--------+---------+ + + + [...] [place] | | | | | | [address] | | | | | | | | +--------+---------+ + + + documented as of this encounter Visit Diagnoses + + | Diagnosis | + + | S/P orthopedic surgery, follow-up exam - Primary Follow-up examination, following | | other surgery | + + documented in this encounter"
--- OUTSIDE RECORDS SUMMARY | ~2019-07-02 | XMS | Encounter Summary ---
Demographics + + + | Address | [address] | | | [place] [address] | + + + | Home Phone [...] | Author | [facility] | | | and Primo | + + + | Organization | [facility] | | [...] [place], [place] | | | | | [address] | | + + + + + | Dalton Fernandez | ECON | Unknown | | + + + + + | Juana Fernandez | ECON | Unknown | | + + + + + Care Team Providers + +------+ + | Care Snow Fence Erector Name | Role | Phone | + [...] Primary | Ramin Gonzalez, | [address] | | | | | localized | [address] | [place], | | | | | osteoarthros | [address] | [place] | | | | | is, lower | [place], | [address] | | | | | leg, right | [place] [address] | Phone: | | | | | Fitting and | Phone: | [phone] | | | | | adjustment | [phone] | Fax: | | | | | of | Fax: | [phone] | | | | | unspecified | [phone] | | | | | | prosthetic | | | | | | | device | | | | | | | Procedures | | | | | | | MRI Knee | | | | | | | Right wo | | | | | | | Contrast [place] | | | | | | | [...] Primary | Ramin L, | [address] | | | | | localized | [address] | [place], | | | | | osteoarthros | [address] | [place] | | | | | is, lower | [place], | [address] | | | | | leg, right | [place] [address] | Phone: | | | | | Fitting and | Phone: | [phone] | | | | | adjustment | [phone] | Fax: | | | | | of | Fax: | [phone] | | | | | unspecified | [phone] | | | | | | prosthetic | | | | | | | device | | | | | | | Procedures | | | | | | | MRI Knee | | | | | | | Right wo | | | | | | | Contrast [place] | | | | | | | [...] + + | 04/27/ | Hospital | [facility] | Ramin Bess | Primary localized | | 2014 | Encounter | MED CTR MRI [address] | MD Lisa [address] [place] [address] | osteoarthrosis, | | | | [address] [place], | [place], [place] | lower leg, right; | | | | [place] [address] | [address] | Fitting and | | | | [phone] | | adjustment of | | | [...] ST. | [address] | [place], [place] | [phone] | | [facility] | | [address] | | | - IMAGING | | | | + + + + + documented in this encounter Visit Diagnoses + + | Diagnosis | + + | Primary localized osteoarthrosis, lower leg, right | + + | Fitting and adjustment of unspecified prosthetic device | + + documented in this encounter"
--- OUTSIDE RECORDS SUMMARY | ~2019-07-02 | XMS | Encounter Summary ---
Demographics + + + | Address | [address] | | | [place] [address] | + + + | Home Phone [...] + | Author | [facility] | | | and Primo | + + + | Organization | [facility] | | | and [...] [place], [place] | | | | | [address] | | + + + + + | Dalton Fernandez | ECON | Unknown | | + + + + + | Juana Fernandez | ECON | Unknown | | + + + + + Care Team Providers + +------+ + | Care Government Relations Manager Name | Role | Phone | [...] | 03/16/ | Telephone | [facility] | Douglas Nuñez MD | Other | | 2013 | | NEUROSURGERY [address] | [address] | | | | | [facility] [address] | [place] [address] | | | | | [place] | [phone] | | | | | [address] | | | | | | [phone] | | | +--------+ + + + [...] [place] | | | | | | [address] | | | | | | | | +--------+---------+ + + + documented as of this encounter Visit Diagnoses Not on filedocumented in this encounter"
--- OUTSIDE RECORDS SUMMARY | ~2019-07-02 | XMS | Encounter Summary ---
Demographics + + + | Address | [address] | | | [place] [address] | + + + | Home Phone [...] | [facility] | | | and Primo | + + + | Organization | [facility] | | | and [place] [...] [place], [place] | | | | | [address] | | + + + + + | Dalton Fernandez | ECON | Unknown | | + + + + + | Juana Fernandez | ECON | Unknown | | + + + + + Care Team Providers + +------+ + | Care Stove Mounter Name | Role | Phone | + [...] Primary | Ramin Gonzalez, | [address] | | | | | osteoarthrit | [address] | [place], | | | | | is of left | [address] | [place] | | | | | knee | [place], | [address] | | | | | Fitting and | [place] [address] | Phone: | | | | | adjustment | Phone: | [phone] | | | | | of | [phone] | Fax: | | | | | prosthetic | Fax: | [phone] | | | | | device | [phone] | | | | | | Procedures [...] | | ORTHOPEDIC SURGERY | MD Lisa [address] [place] [address] | osteoarthritis of | | | | [address] [place] [address] | [place] | left knee (Primary | | | | [place] | [address] | Dx); Fitting and | | | | [address] | | adjustment of | | | | [phone] | | prosthetic device | +--------+ + [...] | Visit | | MD Lisa [address] [place] [address] | | | | | | [place] | | | | | | [address] | | | | | | | [...]
--- OUTSIDE RECORDS SUMMARY | ~2019-07-02 | XMS | Encounter Summary ---
Demographics + + + | Address | [address] | | | [place] [address] | + + + | Home Phone [...] + | Author | [facility] | | | and Primo | + + + | Organization | [facility] | | [...] [place], [place] | | | | | [address] | | + + + + + | Dalton Fernandez | ECON | Unknown | | + + + + + | Juana Fernandez | ECON | Unknown | | + + + + + Care Team Providers + +------+ + | Care Marine Pilot Name | Role | Phone | + [...] | ORTHOPEDIC SURGERY | MD Lisa [address] [facility] | | | | | [address] [facility] | [place] | | | | | [place] | [address] | | | | | [address] | | | | | | [phone] | | | +--------+--------+ + + + [...] [place] | | | | | | [address] | | | | | | | | +--------+---------+ + + + documented as of this encounter Visit Diagnoses Not on filedocumented in this encounter"
--- OUTSIDE RECORDS SUMMARY | ~2019-07-02 | XMS | Encounter Summary ---
Demographics + + + | Address | [address] | | | [place] [address] | + + + | Home Phone | | + + + | Preferred Language | Unknown | + + + | Marital Status | | + + + | Yazidi Affiliation | 1076 | + + + | Race | Unknown | + + + | Ethnic Group | Unknown | + + + Author + + + | Author | [facility] | | | and Prim[place] | + + + | Organization | [facility] | | | and [...] [place], [place] | | | | | [address] | | + + + + + | Dalton Fernandez | ECON | Unknown | | + + + + + | Juana Fernandez | ECON | Unknown | | + + + + + Care Team Providers + +------+ + | Care Rug Inspector Name | Role | Phone | [...] + + | 04/21/ | Refill | [facility] | Zachery Soria | Medication Refill | | 2018 | | ORTHOPEDIC SURGERY | [address] | | | | | [address] [facility] | [facility] | | | | | [place] | [place] [address] | | | | | [address] | [phone] | | | | | [phone] | | | +--------+--------+ + + + [...] [place] | | | | | | [address] | | | | | | | | +--------+---------+ + + + documented as of this encounter Visit Diagnoses Not on filedocumented in this encounter"
--- OUTSIDE RECORDS SUMMARY | ~2019-07-02 | XMS | Encounter Summary ---
Demographics + + + | Address | [address] | | | [place] [address] | + + + | Home Phone [...] Author | [facility] | | | and Primo | + + + | Organization | 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 MIREYA Estrella [address] [facility] [address] [place], [place] [address] FAX: NEUROSURGERY FOLLOW-UP CHIEF COMPLAINT: Chief Complaint [...] [place] | | | | | | [address] | | | | | | | [...]
--- OUTSIDE RECORDS SUMMARY | ~2019-07-02 | XMS | Encounter Summary ---
Demographics + + + | Address | [address] | | | [place] [address] | + + + | Home Phone [...] Author | [facility] | | | and Primo | + + + | Organization | [facility] | [...] [place], [place] | | | | | [address] | | + + + + + | Dalton Fernandez | ECON | Unknown | | + + + + + | Juana Fernandez | ECON | Unknown | | + + + + + Care Team Providers + +------+ + | Care Home Care Scheduler Name | Role | Phone | + [...] | ORTHOPEDIC SURGERY | MD Swathi Gonzalez [facility] | subtrochanteric | | | | [address] [facility] | [place] | femur fracture, | | | | [place] | [address] | initial encounter | | | | [address] | | ([facility]) (Primary Dx) | | | | [phone] | | | +--------+ + + + [...] [place] | | | | | | [address] | | | | | | | [...] Outside study dated October 22, 2016. | [facility] | | Intraoperative images October 23, 2016. [...] + + | Performing | Address | City/State/[facility] [[email or web address] | Phone Number | | Organization | | | | + + + + + | [address] | [address] | [place] | [phone] | | [facility] | | [address] | | | - IMAGING | | | | + + + + + documented in this encounter Visit Diagnoses + + | Diagnosis | + + | Closed left subtrochanteric femur fracture, initial encounter (HCC) - Primary | + + documented in this encounter"
--- OUTSIDE RECORDS SUMMARY | ~2019-07-02 | XMS | Encounter Summary ---
Demographics + + + | Address | [address] | | | [place] [address] | + + + | Home Phone [...] | Author | [facility] | | | and Primo | + + + | Organization | [facility] | [...] [place], [place] | | | | | [address] | | + + + + + | Dalton Fernandez | ECON | Unknown | | + + + + + | Juana Fernandez | ECON | Unknown | | + + + + + Care Team Providers + +------+ + | Care Jig And Fixture Builder Name | Role | Phone | + +------+ + | Dutch Rodriguez DO | PCP | | + +------+ + Encounter Details +--------+ + + + + | Date | Type | Department | Care Team | Description | +--------+ + + + + | 06/10/ | Hospital | [facility] | Douglas Nuñez MD | | | 2013 | Encounter | MED CTR LABORATORY | [address] | | | | | [address] | [place] [address] | | | | | [place] | [phone] | | | | | [address] | | | | | | [phone] | | | +--------+ + + + [...] 2018 | Visit | | MD Lisa [address] [place] [address] | | | | | | [place] | | | | | | [address] | | | | | | | | +--------+---------+ + + + documented as of this encounter Visit Diagnoses Not on filedocumented in this encounter"
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
--- OUTSIDE RECORDS SUMMARY | ~2019-07-02 | XMS | Encounter Summary ---
Demographics + + + | Address | [address] | | | [place] [address] | + + + | Home Phone | | + + + | Preferred Language | Unknown | + + + | Marital Status | | + + + | Adventist Affiliation | 1076 | + + + | Race | Unknown | + + + | Ethnic Group | Unknown | + + + Author + + + | Author | [facility] | | | and Primo | + + + | Organization | [facility] [...] [place], [place] | | | | | [address] | | + + + + + | Dalton Fernandez | ECON | Unknown | | + + + + + | Juana Fernandez | ECON | Unknown | | + + + + + Care Team Providers + +------+ + | Care Security Officer Name | Role | Phone | [...] + + | 06/15/ | Telephone | [facility] | Douglas Nuñez MD | Other (ED visit) | | 2014 | | NEUROSURGERY [address] | [address] | | | | | [facility] [address] | [place] [address] | | | | | [place] | [phone] | | | | | [address] | | | | | | [phone] | | | +--------+ + + + [...] [place] | | | | | | [address] | | | | | | | | +--------+---------+ + + + documented as of this encounter Visit Diagnoses Not on filedocumented in this encounter"
--- OUTSIDE RECORDS SUMMARY | ~2019-07-02 | XMS | Encounter Summary ---
Demographics + + + | Address | [address] | | | [place] [address] | + + + | Home Phone | | + + + | Preferred Language | Unknown | + + + | Marital Status | | + + + | Buddhism Affiliation | 1076 | + + + | Race | Unknown | + + + | Ethnic Group | Unknown | + + + Author + + + | Author | [facility] | | | and Primo | + + + | Organization | [facility] | | | [...] [place], [place] | | | | | [address] | | + + + + + | Dalton Fernandez | ECON | Unknown | | + + + + + | Juana Fernandez | ECON | Unknown | | + + + + + Care Team Providers + +------+ + | Care Seating Captain Name | Role | Phone | + [...] | | | | | | | [place] T[place] | | | | | | [...] + + | 02/08/ | Hospital | [facility] | Ramin Bess | Primary | | 2016 - | Encounter | MED CTR SURGICAL | MD Lisa [address] [facility] | osteoarthritis of | | | | [address] [place] | [place] | left knee (Primary | | 02/11/ | | [place] [address] | [address] | Dx) | | 2015 | | [phone] | | | +--------+ + + + [...] go straight to outpatient therapy at the [facility] in [place] and work with Che , the PT [...] Electronically signed by: Chris French, 02/12/2016 8:34 [facility] documented in this en counter Discharge Instructions [...] home tomorrow. Has Xarelto at home. Needs [place] . Zachery Odonnell PA-C - 02/2016 1:32 [...] 13:32 This note was dictated using the WeH[employer] voice recognition system. Minor errors in grammar [...] | | | | | | [place] | | | | | | [address] | | | | | | | [...] + | [facility] | [address] | [place] | [phone] | | [facility] | | [address] | | | - LABORATORY | | [...] mL/min/1.73m2 | [facility] | | | ENGLISH | RATE,ESTIMATED | | MEDICAL | | | | mL/min/1.04a0Zmlp than | | CENTER - | | [...] ST. | [address] | [place] | [phone] | | [facility] | | [address] | | | - LABORATORY | | [...] | | | | | | | [place] 10/325 if ordered., | | | | [...]
--- OUTSIDE RECORDS SUMMARY | ~2019-07-02 | XMS | Encounter Summary ---
Demographics + + + | Address | [address] | | | [place] [address] | + + + | Home Phone [...] Author | [facility] | | | and Primo | + + + | Organization | [facility] | | [...] [place], [place] | | | | | [address] | | + + + + + | Dalton Fernandez | ECON | Unknown | | + + + + + | Juana Fernandez | ECON | Unknown | | + + + + + Care Team Providers + +------+ + | Care Chemical Educator Name | Role | Phone | + [...] | ORTHOPEDIC SURGERY | MD Lisa [address] [place] [address] | surgery, follow-up | | | | [address] [place] [address] | [place] | exam (Primary Dx) | | | | [place] | [phone] | | | | | [address] | | | | | | [phone] | | | +--------+ + + + [...] [place] | | | | | | [address] | | | | | | | | +--------+---------+ + + + documented as of this encounter Visit Diagnoses + + | Diagnosis | + + | S/P orthopedic surgery, follow-up exam - Primary Follow-up examination, following | | other surgery | + + documented in this encounter"
--- OUTSIDE RECORDS SUMMARY | ~2019-07-02 | XMS | Encounter Summary ---
Demographics + + + | Address | [address] | | | [place] [address] | + + + | Home Phone [...] | Author | [facility] | | | and Primo | + + + | Organization | [facility] | | [...] [place], [place] | | | | | [address] | | + + + + + | Dalton Fernandez | ECON | Unknown | | + + + + + | Juana Fernandez | ECON | Unknown | | + + + + + Care Team Providers + +------+ + | Care Animal Care Supervisor Name | Role | Phone | + +------+ + | Dutch Rodriguez DO | PCP | | + +------+ + Encounter Details +--------+ + + + + | Date | Type | Department | Care Team | Description | +--------+ + + + + | 06/10/ | Preadmit | [facility] | Douglas Nuñez MD | Gastric reflux; | | 2013 | Visit | MED CTR PREADMIT | [address] | Migraine; | | | | CLINIC [address] | [place] [address] | Preoperative | | | | [place] | [phone] | clearance | | | | [address] | | | | | | [phone] | | | +--------+ + + + [...] [place] | | | | | | [address] | | | | | | | [...] + | MISCELLANEOUS LAB | | | [phone] | + +---------+ + + | MISCELANIOUS LAB | | | [phone] | + +---------+ + + CBC with [...] + | [facility] | [address] | [place] | [phone] | | [facility] | | [address] | | | - LABORATORY | | | | + + + + + | [facility] | [address] | [place] | | | [facility] | | [address] | | | - LABORATORY | | [...] 7 - 18 mg/dL | [facility] | | | | | | [facility] | | | | | | MEDICAL | | | | | | CENTER - | | | | | | LABORATORY | | + + + + + + | Creatinine | 0.70 | 0.60 - 1.30 | [facility] | | | | | mg/dL | [facility] | | | | | | MEDICAL | | | | | | CENTER - | | | | | | LABORATORY | | + + + + + + | eGFR if not | >60Comment: GLOMERULAR | >=60 | [facility] | | | | FILTRATION | mL/min/1.73m2 | [facility] | | | EQUATORIAL GUINEAN | RATE,ESTIMATED | | MEDICAL | | | | mL/min/1.36g8Bbdu than | | CENTER - | | [...] ST. | [address] | [place] | [phone] | | [facility] | | [address] | | | - LABORATORY | | | | + + + + + | [facility] | [address] | [place], [place] | | | [facility] | | [address] | | | - LABORATORY | | [...]
--- OUTSIDE RECORDS SUMMARY | ~2019-07-02 | XMS | Encounter Summary ---
Demographics + + + | Address | [address] | | | [place] [address] | + + + | Home Phone [...] Author | [facility] | | | and Primo | + + + | Organization | [facility] [...] [place], [place] | | | | | [address] | | + + + + + | Dalton Fernandez | ECON | Unknown | | + + + + + | Juana Fernandez | ECON | Unknown | | + + + + + Care Team Providers + +------+ + | Care Foundry Finisher Name | Role | Phone | + [...] SURGERY | MD Lisa [address] [facility] | | | | | [address] [facility] | [place] | | | | | [place] | [address] | | | | | [address] | | | | | | [phone] | | | +--------+--------+ + + + [...] [place] | | | | | | [address] | | | | | | | | +--------+---------+ + + + documented as of this encounter Visit Diagnoses Not on filedocumented in this encounter"
--- OUTSIDE RECORDS SUMMARY | ~2019-07-02 | XMS | Encounter Summary ---
Demographics + + + | Address | [address] | | | [place] [address] | + + + | Home Phone [...] [facility] | | | and Primo | + + + | Organization | [facility] | | | and [...] [place], [place] | | | | | [address] | | + + + + + | Dalton Fernandez | ECON | Unknown | | + + + + + | Juana Fernandez | ECON | Unknown | | + + + + + Care Team Providers + +------+ + | Care Vegetable Grower Name | Role | Phone | + [...] | | | | | | [place] T[place] | | | | | | [...] Arthroplasty | | | | [address] | [place], [place] | | | | | [place], [place] | [address] | | | | | [address] | | | | | | [phone] | | | +--------+---------+ + + + [...] go straight to outpatient therapy at the [facility] in [place] and work with Che , the PT [...] signed by: Chris French, 02/12/2016 8:34 [facility] documented in this en counter [...] home tomorrow. Has Xarelto at home. Needs [place] . Zachery Odonnell PA-C - 02/2016 1:32 [...] 13:32 This note was dictated using the [employer] voice recognition system. Minor errors in grammar [...] [place] | | | | | | [address] | | | | | | | [...] + | [facility] | [address] | [place] | [phone] | | [facility] | | [address] | | | - LABORATORY | | [...] | mL/min/1.73m2 | [facility] | | | NAM[place] | RATE,ESTIMATED | | MEDICAL | | | | mL/min/1.59a5Olgn than | | CENTER - | | [...] ST. | [address] | [place] | [phone] | | [facility] | | [address] | | | - LABORATORY | | [...]
--- OUTSIDE RECORDS SUMMARY | ~2019-07-02 | XMS | Encounter Summary ---
Demographics + + + | Address | [address] | | | [place] [address] | + + + | Home Phone [...] | Author | [facility] | | | and Primo | + + + | Organization | [facility] | | | and [place] | + + + | Address | Unknown | + + + | Phone | Unavailable | + + + Support + + + + + | Name | Relationship | Address | Phone | + + + + + | Devang Fernandez | [place] | [address] | | | | | [place], [place] | | | | | [address] | | + + + + + | Dalton Fernandez | ECON | Unknown | | + + + + + | Juana Fernandez | ECON | Unknown | | + + + + + Care Team Providers + +------+ + | Care Client Care Coordinator Name | Role | Phone | + +------+ + | Dutch Rodriguez DO | PCP | | + +------+ + Encounter Details +--------+ + + + + | Date | Type | Department | Care Team | Description | +--------+ + + + + | 03/13/ | Hospital | [facility] | Douglas Nuñez MD | Back pain | | 2013 | Encounter | MED CTR XRAY [address] | [address] | | | | | [place] | [place] [address] | | | | | [place] [address] | [phone] | | | | | [phone] | | | +--------+ + + + [...] [place] | | | | | | [address] | | | | | | | [...] COMPARISON: LUMBAR MRI DECEMBER 03, 2013 FROM [facility] | LAB | | HOSPITAL FINDINGS: AP, [...] painCOMPARISON: LUMBAR MRI DECEMBER 03, 2013 FROM [facility] | | HOSPITALFINDINGS: AP, lateral bending [...] + | MISCELLANEOUS LAB | | | [phone] | + +---------+ + + | MISCELANIOUS LAB | | | [phone] | + +---------+ + + documented in this encounter Visit Diagnoses + + | Diagnosis | + + | Back pain Backache, unspecified | + + documented in this encounter"
--- OUTSIDE RECORDS SUMMARY | ~2019-07-02 | XMS | Encounter Summary ---
Demographics + + + | Address | [address] | | | [place] [address] | + + + | Home Phone [...] Author | [facility] | | | and Primo | + + + | Organization | [facility] | | [...] [place], [place] | | | | | [address] | | + + + + + | Dalton Fernandez | ECON | Unknown | | + + + + + | Juana Fernandez | ECON | Unknown | | + + + + + Care Team Providers + +------+ + | Care Spare Hand Name | Role | Phone | [...] + + | 02/18/ | Telephone | [facility] [place] | Ramin Bess | New Medication | | 2018 | | ORTHOPEDIC SURGERY | MD Lisa [address] [facility] | Request | | | | [address] [facility] | [place] | | | | | [place] | [address] | | | | | [address] | | | | | | [phone] | | | +--------+ + + + [...] [place] | | | | | | [address] | | | | | | | | +--------+---------+ + + + documented as of this encounter Visit Diagnoses Not on filedocumented in this encounter"
--- OUTSIDE RECORDS SUMMARY | ~2019-07-02 | XMS | Encounter Summary ---
Demographics + + + | Address | [address] | | | [place] [address] | + + + | Home Phone [...] Author | [facility] | | | and Primo | + + + | Organization | [facility], [...] [place], [place] | | | | | [address] | | + + + + + | Dalton Fernandze | ECON | Unknown | | + + + + + | Juana Fernandez | ECON | Unknown | | + + + + + Care Team Providers + +------+ + | Care Black Leather Buffer Name | Role | Phone | + [...] + + | 02/19/ | Refill | [facility] | Zachery Soria | Medication Refill | | 2017 | | ORTHOPEDIC SURGERY | [address] | | | | | [address] [facility] | [facility] | | | | | [place] | [place] [address] | | | | | [address] | [phone] | | | | | [phone] | | | +--------+--------+ + + + [...] [place] | | | | | | [address] | | | | | | | | +--------+---------+ + + + documented as of this encounter Visit Diagnoses Not on filedocumented in this encounter"
--- OUTSIDE RECORDS SUMMARY | ~2019-07-02 | XMS | Encounter Summary ---
Demographics + + + | Address | [address] | | | [place] [address] | + + + | Home Phone [...] | Author | [facility] | | | and Primo | + + + | Organization | [facility] | | | and [...] [place], [place] | | | | | [address] | | + + + + + | Dalton Fernandez | ECON | Unknown | | + + + + + | Juana Fernandez | ECON | Unknown | | + + + + + Care Team Providers + +------+ + | Care Vacuum Cleaner Repairer Name | Role | Phone | + [...] + + | 03/16/ | Office | [facility] | Zachery Soria | Status post total | | 2016 | Visit | ORTHOPEDIC SURGERY | [address] | knee replacement, | | | | [address] [facility] | [place] | left (Primary Dx) | | | | [place] | [place] [address] | | | | | [address] | [phone] | | | | | [phone] | | | +--------+---------+ + + + [...] well controlled. She continues with PT at [facility] and on an out patient basis. Recommended today that she continue w/ PT at the left knee. Continue to be full wt bearing. Follow up in ~ 4 wks for reevaluation. B. Patient is advised that if they have any questions, comments or concerns to contact our office. Electronically signed by: Zachery Soria PA-C 03/16/2016 19:38 This note was dictated using the [employer] voice recognition system. Minor errors in [...] physical therapy on an outpatient basis at [facility]. Visit range of motion continues to [...] well controlled. She continues with PT at [facility] and on an out patient basis. Recommended today that she continue w/ PT at the left knee. Continue to be full wt bearing. Follow up in ~ 4 wks for reevaluation. B. Patient is advised that if they have any questions, comments or concerns to contact our office. Electronically signed by: Zachery Soria PA-C 03/16/2016 19:38 This note was dictated using the [employer] voice recognition system. Minor errors in grammar may have occurred. documented in t his encounter Plan of Treatment +--------+---------+ + + + | Date | Type | Specialty | Care Team | Description | +--------+---------+ + + + | 07/22/ | Office | Orthopedic Surgery | Ramin Bess | | | 2018 | Visit | | MD Lisa [facility] | | | | | | [place] | | | | | | [address] | | | | | | | | +--------+---------+ + + + documented as of this encounter Visit Diagnoses + + | Diagnosis | + + | Status post total knee replacement, left - Primary | + + documented in this encounter
--- OUTSIDE RECORDS SUMMARY | ~2019-07-02 | XMS | Encounter Summary ---
Demographics + + + | Address | [address] | | | [place] [address] | + + + | Home Phone [...] Author | [facility] | | | and Primo | + + + | Organization | [facility] | [...] [place], [place] | | | | | [address] | | + + + + + | Dalton Fernandez | ECON | Unknown | | + + + + + | Juana Fernandez | ECON | Unknown | | + + + + + Care Team Providers + +------+ + | Care Rn Ante Partum Name | Role | Phone | + [...] knee replacement, | | | | [address] [facility] | [facility] | left (Primary Dx) | | | | [place] | [place] [address] | | | | | [address] | [phone] | | | | | [phone] | | | +--------+ + + + [...] [place] | | | | | | [address] | | | | | | | [...] ST. | [address] | [place] | [phone] | | [facility] | | [address] | | | - IMAGING | | | | + + + + + documented in this encounter Visit Diagnoses + + | Diagnosis | + + | Status post total knee replacement, left - Primary | + + documented in this encounter"
--- OUTSIDE RECORDS SUMMARY | ~2019-07-02 | XMS | Encounter Summary ---
Demographics + + + | Address | [address] | | | [place] [address] | + + + | Home Phone [...] Author | [facility] | | | and Primo | + + + | Organization | [facility] | | | and [place] | + + + | Address | Unknown | + + + | Phone | Unavailable | + + + Support + + + + + | Name | Relationship | Address | Phone | + + + + + | Devang Fernandez | FRANCSICO | [address] | | | | | [place], [place] | | | | | [address] | | + + + + + | Dalton Fernandez | ECON | Unknown | | + + + + + | Juana Fernandez | ECON | Unknown | | + + + + + Care Team Providers + +------+ + | Care Yarn Spinner Name | Role | Phone | + [...] + + | 01/01/ | Office | [facility] | Ramin Bess | S/P orthopedic | | 2018 | Visit | ORTHOPEDIC SURGERY | MD Swathi Gonzalez | surgery, follow-up | | | | [address] | [place] | exam (Primary Dx) | | | | [place] | [address] | | | | | [address] | | | | | | [phone] | | | +--------+---------+ + + + [...] [place] | | | | | | [id number] | | | | | | | | +--------+---------+ + + + documented as of this encounter Visit Diagnoses + + | Diagnosis | + + | S/P orthopedic surgery, follow-up exam - Primary Follow-up examination, following | | other surgery | + + documented in this encounter"
--- OUTSIDE RECORDS SUMMARY | ~2019-07-02 | XMS | Encounter Summary ---
Demographics + + + | Address | [address] | | | [place] [address] | + + + | Home Phone [...] | Author | [facility] | | | and Primo | + + + | Organization | [facility] | [...] [place], [place] | | | | | [address] | | + + + + + | Dalton Fernandez | ECON | Unknown | | + + + + + | Juana Fernandez | ECON | Unknown | | + + + + + Care Team Providers + +------+ + | Care Head Bookkeeper Name | Role | Phone | + [...] + + | 02/02/ | Office | [facility] | Ramin Bess | Pre-operative | | 2015 | Visit | ORTHOPEDIC SURGERY | MD Lisa [address] [place] [address] | laboratory | | | | [address] [place] [address] | [place] | examination (Primary | | | | [place] | [address] | Dx); Amb[place]; | | | | [address] | | Primary | | | | [phone] | | osteoarthritis of | | | [...] Knee Arthroplasty; Surgeon: Ramin Bess MD; Location: [facility] MAIN OR Allergies Allergen Reactions Onion [...] [place] | | | | | | [address] | | | | | | | [...] - 1.030 | [facility] | | | Munith | | | [facility] | | [...] | | Urine | | | [facility] | | | | | | MEDICAL [...] [address] | [place] | [phone] | | [facility] | | [address] | | | - LABORATORY | | [...] ST. | [address] | [place] | [phone] | | [facility] | | [address] | | | - LABORATORY | | [...]
--- OUTSIDE RECORDS SUMMARY | ~2019-07-02 | XMS | Encounter Summary ---
Demographics + + + | Address | [address] | | | [place] [address] | + + + | Home Phone | | + + + | Preferred Language | Unknown | + + + | Marital Status | | + + + | Zoroastrian Affiliation | 1076 | + + + | Race | Unknown | + + + | Ethnic Group | Unknown | + + + Author + + + | Author | [facility] | | | and Primo | + + + | Organization | [facility] | [...] [place], [place] | | | | | [address] | | + + + + + | Dalton Fernandez | ECON | Unknown | | + + + + + | Juana Fernandez | ECON | Unknown | | + + + + + Care Team Providers + +------+ + | Care Sample Driller Name | Role | Phone | + [...] + + | 06/01/ | Telephone | [facility] | [facility], | Hospital Follow-up | | 2014 | | [facility] | Trinh Morton | | | | | [address] | [address] | | | | | [place] [address] | [place] | | | | | [phone] | [id number] | | | | | | | [...]
--- OUTSIDE RECORDS SUMMARY | ~2019-07-02 | XMS | Encounter Summary ---
Demographics + + + | Address | [address] | | | [place] [address] | + + + | Home Phone [...] Author | [facility] | | | and Primo | + + + | Organization | [facility] | [...] [place], [place] | | | | | [address] | | + + + + + | Dalton Fernandez | ECON | Unknown | | + + + + + | Juana Fernandez | ECON | Unknown | | + + + + + Care Team Providers + +------+ + | Care Location Worker Name | Role | Phone | [...] ORTHOPEDIC SURGERY | MD Swathi Gonzalez [facility] | reduction internal | | | | [address] [place] [address] | [place] | fixation) fracture | | | | [place] | [address] | (Primary Dx) | | | | [address] | | | | | | [phone] | | | +--------+ + + + [...] [place] | | | | | | [address] | | | | | | | [...]
--- OUTSIDE RECORDS SUMMARY | ~2019-07-02 | XMS | Encounter Summary ---
Demographics + + + | Address | [address] | | | [place] [address] | + + + | Home Phone [...] | Author | [facility] | | | and Primo | + + + | Organization | 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 | Phone Number | | Organization | | | | + + + + + | [facility] | [address] | [place] | [phone] | | [facility] | | [address] | | | - IMAGING | | [...]
[~2019-07-02 10:05] MED LIST changes: -CLARITIN10 MG PO; +CLARITIN5 MG PO; +FLUTICASONE PRO16 GM NAS; +NEURONTIN300 MG PO; +PERCOCET 5-3251 EACH PO; +RANITIDINE HCL150 MG PO; -VITAMIN D-32000 UNIT PO; +VITAMIN D1000 UNIT PO
--- OUTSIDE RECORDS SUMMARY | 2019-07-02 10:08 | XMS ---
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 Care History Medical/Surgical 06/13/2018 [facility] - Patient is currently established with [facility]. If patient is seen in the ED during business hours. Please contact [facility] at [facility]. Care Recommendation: This patient has had 5 or more Emergency Department visits in the last 12 months.\T\nbsp; Patient requires education on the scope and purpose of the ED as an acute care provider not a Primary Care Provider and should not be utilized for chronic conditions.\T\nbsp; These are guidelines and the provider should exercise clinical judgment when providing care. E.D. VISIT COUNT (12 MO.) 1 [facility] TOTAL 1 NOTE: Visits indicate total known visits. ED/UCC VISIT TRACKING (12 MO.) 07/02/2019 10:06 [facility] [place] TYPE: Emergency COMPLAINT: - FEVER, FLU SYMPTOMS INPATIENT VISIT TRACKING (12 MO.) No inpatient visits to display in this time frame [id number]
[2019-07-02] MEDS ORDERED: FORTEO2.4 ML SUB-Q (10:20)
--- NOTE | 2019-07-02 18:54 | NUR ---
PATIENT ARRIVED TO MED SURG AT 1850.
--- NOTE | 2019-07-02 19:08 | EKG ---
[facility] [address] [facility] [place] [address] Signed Normal sinus rhythm Inferior infarct , age undetermined Abnormal ECG When compared with ECG of 13-JUN-2018 11:39, Inferior infarct is now present Confirmed by DIANNE ADAMS MD ([id number]) on 07/02/2019 7:08:06 PM Electronically Signed By: DIANNE ADAMS MD 07/02/19 1908 PATIENT NAME: WOODROW KOROMA Electrocardiogram DATE OF : 48 PHYSICIAN: DIANNE ADAMS MD REPORT #: [id number] REPORT IS CONFIDENTIAL AND NOT TO BE RELEASED WITHOUT AUTHORIZATION
--- NOTE | 2019-07-02 19:35 | NUR ---
ADMITTED TO ROOM 123, DROWSY, COOPERATIVE WITH ADMIT ASSESSMENT. VISITING WITH FAMILY
--- NOTE | 2019-07-02 20:39 | NUR ---
UP TO BR, VOIDED, DARK YELLOW URINE, BACK TO BED, NEEDS 1PA/CANE. TOLERATED WELL, BACK TO BED, HOB ELEVATED, STILL VERY DROWSY. FOLLOWS INSTRUCTIONS WELL, L KNEE SOFT BRACE REMOVED. CALL LIGHT AND ICE CHIPS AT BEDSIDE. BED ALARM ON FOR SAFETY
--- NOTE | 2019-07-02 22:26 | NUR ---
RESTING, RESP EVEN, UNLABORED, ON ROOM AIR. BED ALARM ON, CALL LIGHT AT BEDSIDE, BED ALARM ON WA FALL RESTRICTIONS
--- NOTE | 2019-07-03 01:33 | NUR ---
RESTIN, NO DISTRESS, TURNS SELF IN BED, HOB ELEVATED TO HER COMFORT. CALL LIGHT AND ICE CHIPS AT BEDSIDE, NO EMESIS OR C/O PAIN THIS SHIFT. AWAKES EASILY
--- NOTE | 2019-07-03 01:34 | NUR ---
RESTING, WEARING CPAP, NO DISTRESS, IVF INFUSING, LEGS ELEVATED, SCDS INPLACE, STOMA INTACT, CALL LIGHT AT BEDSIDE
--- NOTE | 2019-07-03 01:54 | NUR ---
up to br, voided, back to bed, no sob noted, pulse was over 110bpm on return [id number]. denies sob. warm pad to Labd. c/o mild pain, denies need for pain meds. no c/o dry heaving or n/v. call light at bedside, uses 1PA/Cane.
--- NOTE | 2019-07-03 04:15 | NUR ---
up to br, voided, back to bed, no c/o pain, no n/v, ivf infusing. call light at bedside, tolerating ice chips
--- NOTE | 2019-07-03 04:43 | NUR ---
PT IV PUMP ALARMING, NEW BAG OF IV FLUID PROVIDED. NO OTHER NEEDS AT THIS TIME. CALL LIGHT IN REACH.
--- NOTE | 2019-07-03 06:16 | NUR ---
PT HAS HAD NO N/V, NO EMESIS, NO DIARRHEA, SINCE ADMIT, TOLERATING ICE CHIPS, ON CLEAR LIQUIDS. WARM PAD TO L ABD. HAS DENIES NEED FOR PAIN OR N/V MEDS. HAS VOIDED QS, USES 1PA AND HOME CANE. R KNEE SOFT HOME BRACE REMOVED AT HS. IVF INFUSING W/O PROBLEMS, RECEIVED 1L IVF BOLUS, TOLERATED WELL, REPOSITIONS SELF IN BED. USES CALL LIGHT, CALL LIGHT AT BEDSIDE, ON ROOM AIR. PT WAS VERY DROWSY AND SOMNOLENT ON ADMIT HE HAD RECEIVED PHENERGAIN IN THE ED. PT IS MORE ALERT AND ORIENTED THAN ON ADMIT.
--- NOTE | 2019-07-03 06:51 | NUR ---
RESTING, ON ROOM AIR, EYES CLOSED, NO DISTRESS. IVF INFUSING W/O PROBLEMS. CALL LIGHT AT BEDSIDE
--- NOTE | 2019-07-03 07:10 | NUR ---
Report receieved, orders acknowledged. Patient sitting up in bed, alert and awake. D5LR running at 125 mls/hr. Denies pain and nausea. Diet to be advanced from clear liquid as tolerated. No further needs at this time, call light within reach.
--- NOTE | 2019-07-03 08:12 | NUR ---
Patient sitting up in bed on phone with family. D5LR running at 125 mls/hr. Breakfast delivered, at bedside. AM medications given. Assessment complete. Denies further needs at this time, call light within reach.
--- NOTE | 2019-07-03 10:45 | NUR ---
Patient sitting up in bed watching tv. Denies pain or nausea. Patient ate 75% of meal. No further needs at this time, call light within reach.
--- NOTE | 2019-07-03 12:30 | NUR ---
Patient sitting up in bed watching tv. Denies pain or nausea. Lunch delivered and at patients bedside. Patient able to ambulate independently to toilet, voiding QS. No further needs at this time, call light within reach.
--- NOTE | 2019-07-03 14:30 | NUR ---
Patient independent in shower. Ambulated to bed with cane independently. Fluids running at 65 mls/hr. Denies further needs at this time, call light within reach.
--- NOTE | 2019-07-03 17:28 | NUR ---
Patient ambulated to toilet with cane and 1 person SBA. Returned to bed with cane and 1 person SBA. D5LR running at 65 mls/hr. Denies pain or nausea. No further needs at this time, call light within reach.
--- NOTE | 2019-07-03 19:56 | NUR ---
pt asking about her gabapentin chronic home med for restless legs. Dr Watson notified via phone. he will write new orders
--- NOTE | 2019-07-03 23:08 | NUR ---
NO C/O PAIN OR N/V. UP TO BR WITH 1PA AND HOME CANE, TOLERATED WELL. CALL LIGHT AT BEDSIDE
--- NOTE | 2019-07-04 | NUR ---
HELPED PT TO THE BATHROOM AND BACK TO BED WITH HER CANE. BEDSIDE TABLE AND CALL LIGHT IN REACH.
--- NOTE | 2019-07-04 00:34 | NUR ---
RESTING, EYES CLOSED, NO DISTRESS, IVF INFUSING
--- NOTE | 2019-07-04 01:39 | NUR ---
pt UP TO TOILET AND BACK TO BED, SBA WITH CANE. NO FURTHER REQUESTS AT THIS TIME. CALL LIGHT WITHIN REACH.
--- NOTE | 2019-07-04 02:02 | NUR ---
awake, up to br earlier, no c/.o pain or n/v
--- NOTE | 2019-07-04 03:51 | NUR ---
resting, eyes closed, no resp distress. On room air. IVF infusing w/o problems, no n/v no c/o apin
--- NOTE | 2019-07-04 05:20 | NUR ---
up to br, voided, back to bed, uses cane, tolerated well,
--- NOTE | 2019-07-04 05:43 | NUR ---
PT HAS SLEPT MOST OF THIS SHIFT, NO N/V, NO C/O ABD PAIN, NO DIARRHEA. TOLERATING FULL LIQUIDS DIET AND CRACKERS WELL, DIET ADVANCED TO REGULAR THIS AM. PT GETS UP WITH 1SBA AND USES CANE, TOLERATED WELL, HAS VOIDED QS. IVF IS SL NOW.
--- NOTE | 2019-07-04 07:20 | NUR ---
Report received, orders acknowledged. Patient sitting up in bed watching tv. Reports headache, will provide PRN medication. No further needs at this time, call light within reach.
[2019-07-04] MEDS ORDERED: FOLIC ACID0.8 M1 PO (07:49)
[2019-07-04] MEDS ORDERED: ACETAMINOPHEN325 M1 PO (07:55)
--- NOTE | 2019-07-04 08:06 | NUR ---
MED REC COMPLETED.
--- NOTE | 2019-07-04 08:10 | NUR ---
PATIENT RESTING IN BED. PATIENT'S BREAKFAST ORDERED. PATIENT GOES TO USE THE BATHROOM. ONE PERSON ASSISTING. PATIENT BACKS TO BED. CALL LIGHT WITHIN REACH. NO OTHER NEEDS AT THIS TIME
--- NOTE | 2019-07-04 08:29 | NUR ---
PT REPORTING HEADACHE OF 3/10. PRN TYLENOL ADMINISTERED.
--- NOTE | 2019-07-04 08:43 | NUR ---
CALL LIGHT ANSWERED. PATIENT SITTING UP IN BED TAKING HER BREAKFAST. PATIENT ASKS FOR ICE. ICE GIVEN. CALL LIGHT WITHIN REACH. NO OTHER NEEDS AT THIS TIME
--- NOTE | 2019-07-04 09:23 | NUR ---
PATIENT RESTING IN BED. VITAL SIGNS AND I&O DONE. CALL LIGHT WITHIN REACH. NO OTHER NEEDS AT THIS TIME
--- NOTE | 2019-07-04 09:32 | NUR ---
Patient sitting up in bed, saline locked. AM medication given, assessment complete. Denies further needs at this time, call light within reach.
--- NOTE | 2019-07-04 11:30 | NUR ---
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 She has a house keeping, but cooks and does the laundry. States she is feeling much better after IV fluids and feels she can home safely and resume caring for Zane. If she needs help, friends will assist her.
--- NOTE | 2019-07-04 12:12 | NUR ---
Patient sitting up in bed watching tv. Lunch delivered, patient denies pain or nausea. Patient reports headache, prn medication provided. Water refreshed, denies further needs at this time. Call light within reach.
[2019-07-04] MEDS ORDERED: OMEPRAZOLE20 MG PO (12:56)
--- NOTE | 2019-07-04 13:07 | NUR ---
PATIENT RESTING IN BED. PATIENT GOES TO USE BATHROOM. PATIENT USES CANE. ONE PERSON ASSISTING. PATIENT BACKS TO BED. VITAL SIGNS AND I&O DONE. CALL LIGHT WITHIN REACH. NO OTHER NEEDS AT THIS TIME
--- NOTE | 2019-07-04 14:35 | NUR ---
Discharge instructions given to patient. All questions and concerns answered. Patient verbalized understanding of follow up appointment. All personal belongings collected. Vital signs taken. IV D/C'd, cath intact. Patient leaves unit via wheelchair with friend and nursing staff.
== END 2019-07-04 14:35 | disposition home or self-care (01) ==
LOC: ED 10:05 → MS 10:07
PROVIDERS: ADMIT Internal Medicine
DX: K29.00 Acute gastritis without bleeding (principal); K21.9 Gastro-esophageal reflux disease without esophagitis; H04.129 Dry eye syndrome of unspecified lacrimal gland; M81.0 Age-related osteoporosis without current pathological fracture; J30.89 Other allergic rhinitis; G25.81 Restless legs syndrome; G89.4 Chronic pain syndrome; Z79.899 Other long term (current) drug therapy; Z79.51 Long term (current) use of inhaled steroids
CPT/HCPCS: 74022; 76705; 80053; 81001; 83690; 84484; 85025; 87502; 93005; 93010; 96361; 96372; 96375; 96376; 99285-25; C9113; G0378; J1650; J2405; J2550; J7030; J7040; J7121

== ENCOUNTER 2022-01-31 07:48 | Emergency (ER) | payer MEDICARE ==
[~2022-01-31] VITALS: Ht 162.6 cm; Wt 78.5 kg
[~2022-01-31 07:48] MED LIST changes: +ACETAMINOPHEN325 M1 PO; +FOLIC ACID0.8 M1 PO; +FORTEO2.4 ML SUB-Q; +PEPCID20 MG PO
[2022-01-31] MEDS ORDERED: NAPROSYN500 MG PO (09:36)
--- NOTE | 2022-01-31 20:24 | EKG ---
[facility] [address] [facility] [place] [address] Signed Normal sinus rhythm Normal ECG When compared with ECG of 02-JUL-2019 14:39, Criteria for Inferior infarct are no longer present Confirmed by SAHIL MARSHALL MD ([id number]) on 01/31/2022 8:24:12 PM Electronically Signed By: SAHIL MARSHALL MD 01/31/222023 PATIENT NAME: WOODROW KOROMA Electrocardiogram DATE OF : 48 PHYSICIAN: SAHIL MARSHALL MD REPORT #: [id number] REPORT IS CONFIDENTIAL AND NOT TO BE RELEASED WITHOUT AUTHORIZATION
== END 2022-01-31 10:03 | disposition home or self-care (01) ==
LOC: ED 07:48
DX: M25.512 Pain in left shoulder (principal); Z88.0 Allergy status to penicillin; Z88.8 Allergy status to other drugs, medicaments and biological substances; Z88.5 Allergy status to narcotic agent; Z91.018 Allergy to other foods; Z79.899 Other long term (current) drug therapy
CPT/HCPCS: 36415; 71045; 84484; 85379; 93005; 93010; 99284-25

== ENCOUNTER 2022-10-10 06:25 | Day surgery (SDC) | payer MEDICARE ==
[~2022-10-10] VITALS: Ht 165.1 cm; Wt 72.0 kg
[~2022-10-10 06:25] MED LIST changes: +NAPROSYN500 MG PO
[2022-10-10] MEDS ORDERED: PROLIA60 MG/1 ML SUB-Q (06:58)
--- NOTE | 2022-10-10 08:27 | NUR ---
10/10/22 0827 Maria Elena Motley 7581-PATIENT ARRIVED TO PACU ON 3L NC RR EVEN. PLACED ON 2L. PATIENT LAYING LEFT LATERAL REACTIVE TO VERBAL STIMULI OPENING EYES REMAINS VERY DROWSY. DENIES PAIN OR NAUSEA. DOZES BACK TO SLEEP. ABDOMEN SOFT. IVF INFUSING.
--- NOTE | 2022-10-10 09:30 | OR ---
[facility] [address] [place], [place] [address] Signed DATE OF OPERATION: 10/10/2022 SURGEON: Bere Neri MD PREOPERATIVE DIAGNOSES: 1. Personal history of colonic polyps in 2017 at age 65. 2. Internal hemorrhoids. POSTOPERATIVE DIAGNOSES: 1. 5 mm polyp at 8 cm in rectum. 2. 4 mm polyp in proximal right colon. 3. 8 mm sessile polyp at base of cecum. 4. 8 mm sessile polyps x2 at proximal transverse colon. 5. 6 mm sessile polyps x2 at 40 cm in the left colon. 6. 3 mm polyp at 18 cm in sigmoid colon. 7. Minimal internal hemorrhoid tissue. PROCEDURE: Colonoscopy with hot biopsy. ESTIMATED BLOOD LOSS: None. INDICATIONS: Myriam is a 71-year-old female, asked to see me for followup colonoscopy. She underwent upper and lower endoscopy in 2002 at the age of [address] Aponte. She could not give me any of those details. She remembers being in the hospital with a bleeding ulcer on Xarelto when I met her in 2017 at the age of 65. She had a [id number] hiatal hernia and a negative CLOtest. She had internal hemorrhoids and three small hyperplastic polyps as well as one tubular adenomatous polyp removed. We asked her to follow up in 5 years. Currently, she has no lower GI complaints. She told me her had hemophilia. He fell and hit his head and had unfortunately. In the office, I gave her a pamphlet on colonoscopy. We had reviewed the nature of the test. There is risk including, but not limited to gas bloating, crampy abdominal pain, bleeding, perforation requiring surgery, and missed diagnosis. We also reviewed the need for IV conscious sedation. She had expressed understanding and wished to proceed. PROCEDURE NOTE: Myriam was taken into our endoscopy suite and placed in the left lateral decubitus position. She was given divided doses of 4 mg of Versed and 75 mcg of fentanyl to cover Electronically Signed By: BERE NERI MD 10/10/22 0930 PATIENT NAME: MYRIAM KOROMA OPERATIVE REPORT DATE OF : 48 REPORT #: [id number] PHYSICIAN: BERE NERI MD PCP: DUTCH VALENCIA DO REPORT IS CONFIDENTIAL AND NOT TO BE RELEASED WITHOUT AUTHORIZATION [facility] [address] [place], [place] [address] Signed the case. A digital rectal exam was performed and this was unremarkable. No external hemorrhoids. There were no masses. She had moderate sphincter tone. The adult colonoscope was then introduced and advanced under direct visualization of the camera. She is quite small in stature and so her sigmoid colon is a little narrow and a little bit tortuous. It took some extra sedation and little extra abdominal compression in order to get the scope around into the cecum itself. Unfortunately, her prep was moderate. She had a couple areas of liquid particulate stool matter, most of which we were able to suction out. In the future, she should probably use a little more bowel prep. We eventually made our way up to the cecum and we could see the ileocecal valve and appendiceal orifice. The above-mentioned polyps were easily removed with the help of hot biopsy forceps after the scope was withdrawn. We took pictures throughout for photodocumentation. We did not see any diverticula. Once in the rectum, the scope had been retroflexed and we did not see much in the way of internal hemorrhoid columns. After this, the gas was suctioned out and the colonoscope removed. Myriam tolerated the procedure quite well. RECOMMENDATIONS: I will see Myriam back in my office in 7 to 14 days to review her results. She should probably use a little additional prep in the future. Given the eight polyps removed today, she might consider a followup colonoscopy between one and three years. Bere Neri MD ALB/MODL /[id number] cc: MD Dutch King DO Copies: BERE NERI MD, ARIAN DO ~ Electronically Signed By: BERE NERI MD 10/10/22 0930 PATIENT NAME: MYRIAM KOROMA OPERATIVE REPORT DATE OF : 48 REPORT #: [id number] PHYSICIAN: BERE NERI MD PCP: DUTCH VALENCIA DO REPORT IS CONFIDENTIAL AND NOT TO BE RELEASED WITHOUT AUTHORIZATION
--- NOTE | 2022-10-10 09:44 | NUR ---
0930: PT RETURNS TO DAY SURGERY FROM PACU VIA STRETCHER. REPORTS FEELING SLEEPY AND "WOOZY" IN PACU. VSS, RESP EVEN AND UNLABORED. SLY PO INTAKE WELL. IV WNL. DISCUSSED POC AND PT AGREEABLE. NO NEEDS AT THIS TIME, DAUGHTER AT THE BEDSIDE
--- NOTE | 2022-10-10 10:23 | NUR ---
PT ALERT, ORIENTED AND SUPPORTED BY HER DAUGHTER TRACEE ADKINS. PT HAS HAD PREVIOUS SCOPE, ALL QUESTIONS ASKED ANSWERED. TRACEE ADKINS WILL REMAIN FOR DC. PT REQUESTED PRAYER, WILL FOLLOW NEEDED
--- NOTE | 2022-10-10 10:37 | NUR ---
1010: VS CHECKED. PATIENT ASSISTED TO SIT ON SIDE OF BED. NO C/O DIZZINESS. PATIENT DRESSING WHILE SITTING ON SIDE OF BED. DISCHARGE INSTRUCTIONS GIVEN TO PATIENT. STAND BY ASSIST WHILE PATIENT STOOD AT BEDSIDE. TOLERATED WELL. IV DC'D WNL. TIP INTACT. DRESSING APPLIED. 1026: PATIENT DISCHARGED TO HOME VIA WHEELCHAIR WITH DAUGHTER.
--- NOTE | 2022-10-12 16:01 | PATH ---
[facility] [address] [facility] [facility] [place] [place] [address] Signed SPECIMEN(S): A RECTAL POLYPS AT 8CM SPECIMEN(S): B PROXIMAL ASCENDING COLON POLYPS SPECIMEN(S): C CECUM COLON POLYP SPECIMEN(S): D PROXIMAL TRANSVERSE COLON POLYP SPECIMEN(S): E DESCENDING COLON POLYPS AT 40CM SPECIMEN(S): F DISTAL SIGMOID POLYP AT 18CM SPECIMEN SOURCE: A. RECTAL POLYPS AT 8CM B. PROXIMAL ASCENDING COLON POLYPS C. CECUM COLON POLYP D. PROXIMAL TRANSVERSE COLON POLYP E. DESCENDING COLON POLYPS AT 40CM F. DISTAL SIGMOID POLYP AT 18CM CLINICAL HISTORY: Personal history of polyps, hemorrhoids. Postop: Polyps FINAL PATHOLOGIC DIAGNOSIS: A. Rectum polyp at 8 cm, polypectomy: - Fragments of hyperplastic polyp. B. Proximal ascending/right colon polyp, polypectomy: - Fragments of tubular adenoma. - Negative for high-grade dysplasia and malignancy. C. Cecum colon polyp, polypectomy: - Tubular adenoma. - Negative for high-grade dysplasia and malignancy. D. Proximal transverse colon polyp, polypectomy: - Tubular adenoma. - Negative for high-grade dysplasia and malignancy. E. Descending colon polyp at 40 cm, polypectomy: - Fragments of hyperplastic polyp. F. Distal sigmoid colon polyp at 18 cm, polypectomy: - Tubular adenoma. - Negative for high-grade dysplasia and malignancy. DF:llc:[id number] MICROSCOPIC EXAMINATION: Histologic sections of all submitted blocks are examined by light microscopy. These findings, together with the gross examination, support the pathologic diagnosis. PATIENT NAME: WOODROW KOROMA PATHOLOGY DATE OF : 48 REPORT #: [id number] PHYSICIAN: BAYLEE ORDOÑEZ PCP: NABILA VALENCIA DO REPORT IS CONFIDENTIAL AND NOT TO BE RELEASED WITHOUT AUTHORIZATION [facility] [address] [place], [place] [address] Signed GROSS DESCRIPTION: A. The specimen, labeled and designated "Jim E," and designated on the requisition "rectum polyp at 8 cm," is received in formalin and consists of two ambrosio soft tissue fragments that measure 0.3 and 0.4 cm in greatest dimension. The specimen is entirely submitted in (A1). B. The specimen, labeled and designated "Jim E," and designated on the requisition "proximal ascending/right colon polyp," is received in formalin and consists of two ambrosio soft tissue fragments that measure 0.3 and 0.4 cm in greatest dimension. The specimen is entirely submitted in (B1). C. The specimen, labeled and designated "Jim E," and designated on the requisition "cecum colon polyp," is received in formalin and consists of one ambrosio soft tissue fragment that is 0.3 cm in greatest dimension. The specimen is entirely submitted in (C1). D. The specimen, labeled and designated "Jim E," and designated on the requisition "proximal transverse colon polyp," is received in formalin and consists of one ambrosio soft tissue fragment that is 0.3 cm in greatest dimension. The specimen is entirely submitted in (D1). E. The specimen, labeled and designated "Jim E," and designated on the requisition "descending colon polyp at 40 cm," is received in formalin and consists of four ambrosio soft tissue fragments that measure 0.2 to 0.4 cm in greatest dimension. The specimen is entirely submitted in (E1). F. The specimen, labeled and designated "Rupinder Koroma," and designated on the requisition "distal sigmoid colon polyp at 18 cm," is received in formalin and consists of one ambrosio soft tissue fragment that is 0.4 cm in greatest dimension. The specimen is entirely submitted in (F1). FB (under the direct supervision of a pathologist) The Gross Description was prepared using a voice recognition system. The report was reviewed for accuracy; however, sound-alike word errors, addition and/or deletions may occur. If there is any question about this report, please contact Client Services. PERFORMING LABORATORY: The technical component was performed by [facility], [address] [place] [id number] (CLIA# [id number]). Professional interpretation was performed by [facility], [facility], [address] [place] [id number] (CLIA#: [id number]) PATIENT NAME: WOODROW KOROMA PATHOLOGY DATE OF : 48 REPORT #: [id number] PHYSICIAN: BAYLEE PATHOLOGY PCP: NABILA VALENCIA DO REPORT IS CONFIDENTIAL AND NOT TO BE RELEASED WITHOUT AUTHORIZATION [address] [address] Signed Diagnostician: Douglas Garcia DO Pathologist Electronically Signed 10/12/2022 Copies: ~ PATIENT NAME: WOODROW KOROMA PATHOLOGY DATE OF : 48 REPORT #: [id number] PHYSICIAN: BAYLEE PATHOLOGY PCP: NABILA VALENCIA DO REPORT IS CONFIDENTIAL AND NOT TO BE RELEASED WITHOUT AUTHORIZATION
== END 2022-10-10 10:26 | disposition home or self-care (01) ==
LOC: DS 06:25 → OPS 06:25 → DS 07:30 → OPS 10:26
PROVIDERS: ATTEND Colon & Rectal Surgery
PROC: 0DBL8ZX Excision of Transverse Colon, Via Natural or Artificial Opening Endoscopic, Diagnostic (ICD-10-PCS; 2022-10-10)
PROC: 0DBN8ZX Excision of Sigmoid Colon, Via Natural or Artificial Opening Endoscopic, Diagnostic (ICD-10-PCS; 2022-10-10)
PROC: 0DBP8ZX Excision of Rectum, Via Natural or Artificial Opening Endoscopic, Diagnostic (ICD-10-PCS; 2022-10-10)
PROC: 0DBM8ZX Excision of Descending Colon, Via Natural or Artificial Opening Endoscopic, Diagnostic (ICD-10-PCS; 2022-10-10)
PROC: 0DBH8ZX Excision of Cecum, Via Natural or Artificial Opening Endoscopic, Diagnostic (ICD-10-PCS; 2022-10-10)
PROC: 0DBK8ZX Excision of Ascending Colon, Via Natural or Artificial Opening Endoscopic, Diagnostic (ICD-10-PCS; principal; 2022-10-10 07:30)
DX: D12.2 Benign neoplasm of ascending colon (principal); D12.0 Benign neoplasm of cecum; D12.5 Benign neoplasm of sigmoid colon; D12.3 Benign neoplasm of transverse colon; K62.1 Rectal polyp; K64.8 Other hemorrhoids; K44.9 Diaphragmatic hernia without obstruction or gangrene; K21.9 Gastro-esophageal reflux disease without esophagitis; M81.0 Age-related osteoporosis without current pathological fracture; G25.81 Restless legs syndrome; Z79.899 Other long term (current) drug therapy; Z88.5 Allergy status to narcotic agent; Z88.0 Allergy status to penicillin; Z88.8 Allergy status to other drugs, medicaments and biological substances; Z91.018 Allergy to other foods
CPT/HCPCS: 99153; G0500; J0690; J2250; J3010; J7121

== ENCOUNTER 2022-12-03 23:00 | Emergency (ER) | payer MEDICARE ==
[~2022-12-03] VITALS: Ht 165.1 cm; Wt 71.7 kg
[~2022-12-03 23:00] MED LIST changes: +PROLIA60 MG/1 ML SUB-Q
--- OUTSIDE RECORDS SUMMARY | 2022-12-03 23:06 | XMS ---
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 Care History Medical/Surgical 07/04/2019 [facility] Patient only has wellness exam scheduled for 11/27/2019.\T\nbsp; I left voicemail to advise to contact Dr. Valencia if follow up visit is needed. 06/13/2018 [facility] - Patient is currently established with [facility]. If patient is seen in the ED during business hours. Please contact CHWs at [facility]. Care Recommendation: This patient has [...] providing care. E.D. VISIT COUNT (12 MO.) 2 DAVIE Mendoza TOTAL 2 NOTE: Visits indicate total known visits. ED/UCC VISIT TRACKING (12 MO.) 12/03/2022 23:01 [facility] [place] TYPE: Emergency COMPLAINT: - POSS UTI 01/31/2022 07:49 [facility] [place] TYPE: Emergency COMPLAINT: - L SHOULDER PAIN DIAGNOSES: - Allergy status to narcotic agent - Allergy status to other drugs, medicaments and biological substances - Allergy status to penicillin - Allergy to other foods - Other chcf (current) drug therapy - Pain in left shoulder INPATIENT VISIT TRACKING (12 MO.) No inpatient visits to display in this time frame [email or web address]
[2022-12-03] MEDS ORDERED: PILOCARPINE HCL5 MG PO (23:19)
[2022-12-03] MEDS ORDERED: MACROBID 100 M100 MG PO (23:30)
[2022-12-03 23:39] VITALS: BP 118/57
== END 2022-12-03 23:40 | disposition home or self-care (01) ==
LOC: ED 23:00
DX: N39.0 Urinary tract infection, site not specified (principal); Z88.5 Allergy status to narcotic agent; Z88.0 Allergy status to penicillin; Z88.8 Allergy status to other drugs, medicaments and biological substances; Z91.018 Allergy to other foods
CPT/HCPCS: 81001

== ENCOUNTER 2023-07-29 00:06 | Emergency (ER) | payer MEDICARE ==
[~2023-07-29] VITALS: Ht 165.1 cm; Wt 71.7 kg
[~2023-07-29 00:06] MED LIST changes: +MACROBID 100 M100 MG PO; +PILOCARPINE HCL5 MG PO
[2023-07-29 00:42] LABS: BILIRUBIN, URINE NEGATIVE (negative); BLOOD/HGB, URINE MODERATE (Negative); KETONE, URINE NEGATIVE (Negative); LEUK ESTERASE, URINE MODERATE (negative); NITRITE, URINE NEGATIVE (negative); PH, URINE 7.5 (5-7)
[2023-07-29 00:49] LABS: EPITHELIAL CELLS, URINE SQUAMOUS 1+ /lpf (0-1+)
[2023-07-29 00:50] LABS: BACTERIA, URINE 1+ /hpf (negative); REFLEX CULTURE, URINE Yes (No)
[2023-07-29] MEDS ORDERED: MACROBID 100 M100 MG PO (01:02)
[2023-07-29] MEDS ORDERED: PYRIDIUM100 MG PO (01:02)
[2023-07-29 01:35] VITALS: BP 122/69
== END 2023-07-29 01:36 | disposition home or self-care (01) ==
LOC: ED 00:06
PROVIDERS: Internal Medicine
DX: N39.0 Urinary tract infection, site not specified (principal); Z96.653 Presence of artificial knee joint, bilateral; Z88.0 Allergy status to penicillin; Z91.018 Allergy to other foods; Z88.5 Allergy status to narcotic agent; Z79.899 Other long term (current) drug therapy
CPT/HCPCS: 81001; 87088; 99283

== ENCOUNTER 2025-06-02 19:12 | Emergency (ER) | payer MEDICARE ==
[~2025-06-02] VITALS: Ht 165.1 cm; Wt 71.4 kg
[~2025-06-02 19:12] MED LIST changes: +PYRIDIUM100 MG PO
[2025-06-02 20:41] LABS: BASOPHILS 0.6 % (0.1-1.2); EOSINOPHILS 1.8 % (0.7-5.8); LYMPHOCYTES 29.4 % (19.3-51.7); MCH 31.3 PG (25.6-32.2); MCHC 32.5 g/dL (32.2-35.5); MCV 96.2 fL (79.4-94.8); MONOCYTES 7.4 % (4.7-12.5); NEUTROPHILS 60.6 % (34.0-71.1); RBC 3.90 M/uL (3.93-5.22)
[2025-06-02 20:58] LABS: ALT (SGPT) 31.0 U/L (14-59); AST (SGOT) 26.0 U/L (15-37); GLOMERULAR FILTRATION RATE,EST 91.0 mL/min (>60); PROTEIN, TOTAL 7.5 g/dL (6.4-8.2); UREA NITROGEN 15.0 mg/dL (7-18)
[2025-06-02 20:59] LABS: CORONAVIRUS COVID-19 AG NEGATIVE (NEGATIVE)
[2025-06-02 21:33] LABS: BLOOD/HGB, URINE NEGATIVE (Negative); KETONE, URINE NEGATIVE (Negative); LEUK ESTERASE, URINE SMALL (negative); NITRITE, URINE NEGATIVE (negative)
[2025-06-02 21:37] LABS: EPITHELIAL CELLS, URINE SQUAMOUS 1+ /lpf (0-1+)
[2025-06-02] MEDS ORDERED: LEVOFLOXACIN750 MG PO (21:37)
[2025-06-02 21:38] LABS: BACTERIA, URINE RARE /hpf (negative); CRYSTALS, URINE NONE SEEN (0-1+)
[2025-06-02 21:39] LABS: CASTS, URINE NONE SEEN \\lpf; REFLEX CULTURE, URINE No (No)
[2025-06-02 21:59] VITALS: BP 116/68
--- NOTE | 2025-06-03 07:42 | EKG ---
[facility] [address] [facility] [place] [address] Signed Normal sinus rhythm Normal ECG When compared with ECG of 31-JAN-2022 08:00, No significant change was found Confirmed by Lin Kumar DO ([id number]) on 06/03/2025 7:41:47 AM Electronically Signed By: LIN KUMAR DO 06/03/25 0742 PATIENT NAME: CAREY KOROMA Electrocardiogram DATE OF : 48 PHYSICIAN: LIN KUMAR DO REPORT #: [id number] REPORT IS CONFIDENTIAL AND NOT TO BE RELEASED WITHOUT AUTHORIZATION
== END 2025-06-02 22:11 | disposition home or self-care (01) ==
LOC: ED 19:12
PROVIDERS: Internal Medicine
DX: J18.9 Pneumonia, unspecified organism (principal); Z91.018 Allergy to other foods; Z88.0 Allergy status to penicillin; Z88.5 Allergy status to narcotic agent; Z88.8 Allergy status to other drugs, medicaments and biological substances
CPT/HCPCS: 36415; 71045; 80053; 81001; 83690; 83880; 84484; 85025; 93005; 93010; 99285-25